=== PATIENT | female | born 1950 | race Caucasian/White ===

== ENCOUNTER → 2016-07-14 | Outpatient (CLI) | payer OTHER ==
[~2016-07-14] MED LIST: AMOX500C3 PO; CHOL20007 PO; CLON0.2T PO; ERGO500037 PO; FELO2.5T PO; FLUT0.15 NAE; FURO-85 PO; HYDR-5688 PO; IPRA1AER2 INH; IPRASOL4 INH; LDDP5 TD; LEVO125T4 PO; LORA-741 PO; LOSA1TAB38 PO; METO25TA3 PO; MOME16.7 INH; OMEP20CA59 PO; ONDA4TAB10 SL; OXYC1TAB3 PO; PANT40TA PO; PRED20TA2 PO; PRT/20 PO; RANI150T3 PO; RBTDAC10 PO; RIZA10TA18 PO; SERT-234 PO; SPIR25TA PO
[2016-07-14 12:27] LABS: URINE APPEARANCE CLEAR (CLEAR); URINE BILIRUBIN NEG (NEG); URINE COLOR YELLOW; URINE EPITHELIAL CELL AUTO 0-5 /lpf (0-5); URINE NITRITE NEG (NEG); URINE PH 6.5 (4.5-7.5); URINE SPECIFIC GRAVITY 1.006 (1.000-1.030); UROBILINOGEN NEG (NEG); ZZUR CULT IF INDIC CLEAN CATCH NO
[2016-07-14 12:40] LABS: BLOOD UREA NITROGEN 16 mg/dl (7-18); BUN/CREATININE RATIO 17.5 (10-20); CALCIUM 9.3 mg/dl (8.5-10.1); CARBON DIOXIDE 29 mmol/L (21-32); CHLORIDE 104 mmol/L (98-107); CREATININE 0.93 mg/dl (0.60-1.20); GLUCOSE 106 mg/dl (70-99); PHOSPHORUS 3.5 mg/dl (2.5-4.9); POTASSIUM 4.4 mmol/L (3.5-5.1); SODIUM 139 mmol/L (136-145)
[2016-07-14 12:57] LABS: URINE TOTAL PROTEIN < 5.0 mg/dl (0-11.9)
[2016-07-14 13:04] LABS: MANUAL MICROSCOPIC REQUIRED? NO; REVIEW REQ? NO
== END | disposition home or self-care (01) ==
LOC: C.LABPVFM 09:29
PROVIDERS: ATTEND Nurse Practitioner
DX: I10 Essential (primary) hypertension (principal); E55.9 Vitamin D deficiency, unspecified

== ENCOUNTER → 2016-07-26 | Outpatient (CLI) | payer OTHER | END | disposition home or self-care (01) | LOC: C.LABPVFM 13:44 | PROVIDERS: ATTEND Nurse Practitioner | DX: E03.9 Hypothyroidism, unspecified (principal) ==

== ENCOUNTER → 2016-09-20 | Outpatient (CLI) | payer OTHER ==
[~2016-09-20] MED LIST changes: +OPTIRAY 320 IV PRN
--- NOTE | 2016-09-20 11:17 | DIAGNOSTIC IMAGING REPORT ---
CHEST CT WITH CONTRAST CT DOSE: 252.58 mGy.cm HISTORY: Abnormal chest CT J44.9,R93.8 TECHNIQUE: Multiaxial CT images of the chest were performed following the intravenous administration of contrast. COMPARISON: 05/18/2016 FINDINGS: Improved exam compared to the prior study. Small left pleural effusion on the prior study has effectively resolved. Moderate emphysematous change as well as a slight degree of parenchymal fibrotic change is similar. There is no evidence for new or interval or progressive process. Mediastinal nodes previously described are stable. There is no evidence for new interval or progressive adam pathology. The thoracic aorta is normal in course and caliber IMPRESSION: 1. Moderately improved exam. The left pleural effusion has essentially resolved. 2. Mild emphysematous and chronic interstitial change unaltered from the prior study. 3. Nonspecific mediastinal and to lesser extent hilar adenopathy unchanged from the prior study. Electronically signed by: Yomi Moreland M.D. 09/20/2016 11:16 AM Dictated Date/Time: 09/20/2016 11:12 AM
== END | disposition home or self-care (01) ==
LOC: C.CTS 10:40
PROVIDERS: ATTEND Internal Medicine Pulmonary Disease
DX: J44.9 Chronic obstructive pulmonary disease, unspecified (principal); R93.8 Abnormal findings on diagnostic imaging of other specified body structures

== ENCOUNTER 2016-09-25 15:58 | Emergency (ER) | payer OTHER ==
[~2016-09-25] VITALS: Ht 167.6 cm; Wt 81.3 kg
[~2016-09-25 15:58] MED LIST changes: -AMOX500C3 PO; -CHOL20007 PO; -CLON0.2T PO; -FELO2.5T PO; -FURO-85 PO; -IPRA1AER2 INH; -IPRASOL4 INH; -LEVO125T4 PO; -LORA-741 PO; -LOSA1TAB38 PO; -METO25TA3 PO; -ONDA4TAB10 SL; -OPTIRAY 320 IV PRN; -OXYC1TAB3 PO; -PANT40TA PO; -PRED20TA2 PO; -PRT/20 PO; -RANI150T3 PO; -SPIR25TA PO
[2016-09-25 16:08] VITALS: TEMP 36.8
--- NOTE | 2016-09-25 16:10 | EMERGENCY ROOM VISIT NOTE ---
History Report prepared by Ramiro: Bijal Lew Under the Supervision of: Dr. Flo Noel M.D. First contact with patient: 16:04 Chief Complaint: ILLNESS Stated Complaint: ILLNESS History of Present Illness The patient is a 66 year old female who presents to the Emergency Room with complaints of resolved hypertension starting shortly [employer]. The patient states that recently she has had congestion and feels like there is a "ball" in her throat. The patient states that she ate a yogurt and then started to feel dizziness and nausea. She states she then checked her blood pressure and it was at 188/102 mmHg. The patient states she then called for the ambulance but that her blood pressure had decreased. The patient states that she also vomited in route to the hospital. The patient denies any abdominal pain. She states she does use inhalers at home occasionally. The patient states that she did not take any cold medication but did take Tylenol. She states she saw her PCP today where she was prescribed penicillin and took one dose this morning. 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 Review of Systems See HPI for pertinent positives & negatives. A total of 10 systems reviewed and were otherwise negative. Past Medical & Surgical Medical Problems: (1) Anxiety State Nos (2) Asthma (3) Benign hypertension (4) Chr Airway Obstruct Nec (5) Chronic Obstructive Asthma, Nos (6) Coron Atheroscler Nos Type Vessel, [place] Or Graft (7) Diab Alena Wo Compl, Type Ii Or Unspec Type, Uncontrolled (8) Hypertensive urgency (9) Hypothyroidism (10) Hypothyroidism Nos (11) Pneumonia, Organism Nos (12) Pulmonary emphysema (13) Stage 3 Bilateral Breast Carcinoma (14) Tobacco Use Disorder (15) Urin Tract Infection Nos Surgical Problems: (1) S/P mastectomy, bilateral (2) Tubal Ligation Status Family History Diabetes mellitus FHx: heart disease Hypertension Social History Smoking Status: Former Smoker Alcohol Use: none Drug Use: none Marital Status: single, Housing Status: lives alone Occupation Status: disabled Current/Historical Medications Scheduled Felodipine (Plendil Er), 2.5 MG PO DAILY Furosemide (Lasix), 20 MG PO DAILY Ipratropium-Albuterol (Combivent Respimat), 1 PUFFS INH QID Levothyroxine Sodium (Levothyroxine Sodium), 0.5 TAB PO DAILY Losartan Potassium (Cozaar), 100 MG PO DAILY Metoprolol Succinate (Toprol Xl), 12.5 MG PO DAILY Ondasetron Odt (Zofran Odt), 4 MG SL Q6H Pantoprazole (Protonix), Unknown Dose PO DAILY Prednisone (Prednisone Tab), 0 PO DAILY Ranitidine Hcl (Zantac), Unknown Dose PO QPM Sertraline (Zoloft), 50 MG PO DAILY Spironolactone (Aldactone), 25 MG PO DAILY Scheduled PRN Clonidine Hcl (Catapres), 0.1 MG PO BID PRN for Hypertension Ipratropium-Albuterol (Duoneb), 1 TREATMENT INH Q4H PRN for Wheezing Lorazepam (Ativan), 0.5 MG PO HS PRN for INSOMNIA Allergies Coded Allergies: Hydralazine (Verified Allergy, Unknown, joint pain, 09/25/16) pt Tetracycline (Verified Allergy, Unknown, UNKNOWN, 09/25/16) Amlodipine (Verified Adverse Reaction, Mild, Edema., 09/25/16) Physical Exam Vital Signs Date Time Temp Pulse Resp B/P Pulse Ox O2 Delivery O2 Flow Rate FiO2 09/25/16 17:37 18 09/25/16 17:16 78 16 101/56 97 Room Air 09/25/16 16:21 95 Nasal Cannula 09/25/16 16:20 95 Room Air 09/25/16 16:18 76 09/25/16 16:08 36.8 75 16 129/71 95 Room Air Physical Exam GENERAL: Patient is a healthy-appearing well-nourished HEAD: Normocephalic atraumatic EYES: Ocular movements intact pupils equal and react to light OROPHARYNX mucous membranes are moist no exudates present no erythema or edema present NECK: Supple no nuchal rigidity CHEST: Good equal expansion LUNGS: Bilateral wheezing. CARDIAC: Normal S1 and S2 ABDOMEN: Soft nontender no guarding BACK: No CVA tenderness EXTREMITIES: No pain upon palpation normal muscle strength in all groups no clubbing cyanosis or edema NEURO: Patient is following commands is answering questions appropriately. Alert and oriented x3 Cranial Nerves 2-12 grossly intact Medical Decision & Procedures ER Provider Diagnostic Interpretation: X-ray results as stated below per interpretation by me and the radiologist: SINGLE VIEW CHEST CLINICAL HISTORY: Pleural effusion. FINDINGS: An AP, portable, upright chest radiograph is compared to study dated 05/24/2016 and correlated with chest CT dated 09/20/2016. The examination is degraded by portable technique and patient rotation. A right subclavian central venous infusion port is unchanged in position. The heart is enlarged and there is atherosclerotic calcification of the thoracic aorta. The pulmonary vasculature is noncongested. Emphysema and chronic interstitial thickening are similar to previous, as is mild elevation of left hemidiaphragm. No airspace consolidation or pleural effusion is seen identified. There is significant biapical scarring. There is no pneumothorax. The skeletal structures are osteopenic. There are healed left-sided rib fractures. IMPRESSION: Cardiomegaly and emphysema with no acute cardiopulmonary abnormality. Electronically signed by: Edi Figueroa M.D. 09/25/2016 4:53 PM Dictated Date/Time: 09/25/2016 4:51 PM Laboratory Results 09/25/16 16:24 Red Blood Count 4.67, Mean Corpuscular Volume 85.7, Mean Corpuscular Hemoglobin 29.6, Mean Corpuscular Hemoglobin Concent 34.5, Mean Platelet Volume 9.1, Neutrophils (%) (Auto) 64.9, Lymphocytes (%) (Auto) 24.8, Monocytes (%) (Auto) 8.1, Eosinophils (%) (Auto) 1.5, Basophils (%) (Auto) 0.5, Neutrophils # (Auto) 5.22, Lymphocytes # (Auto) 2.00, Monocytes # (Auto) 0.65, Eosinophils # (Auto) 0.12, Basophils # (Auto) 0.04 09/25/16 16:24 Test 09/25/16 16:24 White Blood Count 8.05 K/uL (4.8-10.8) Red Blood Count 4.67 M/uL (4.2-5.4) Hemoglobin 13.8 g/dL (12.0-16.0) Hematocrit 40.0 % (37-47) Mean Corpuscular Volume 85.7 fL (80-100) Mean Corpuscular Hemoglobin 29.6 pg (25-34) Mean Corpuscular Hemoglobin Concent 34.5 g/dl (32-36) Platelet Count 251 K/uL (130-400) Mean Platelet Volume 9.1 fL (7.4-10.4) Neutrophils (%) (Auto) 64.9 % Lymphocytes (%) (Auto) 24.8 % Monocytes (%) (Auto) 8.1 % Eosinophils (%) (Auto) 1.5 % Basophils (%) (Auto) 0.5 % Neutrophils # (Auto) 5.22 K/uL (1.4-6.5) Lymphocytes # (Auto) 2.00 K/uL (1.2-3.4) Monocytes # (Auto) 0.65 K/uL (0.11-0.59) Eosinophils # (Auto) 0.12 K/uL (0-0.5) Basophils # (Auto) 0.04 K/uL (0-0.2) RDW Standard Deviation 43.8 fL (36.4-46.3) RDW Coefficient of Variation 14.1 % (11.5-14.5) Immature Granulocyte % (Auto) 0.2 % Immature Granulocyte # (Auto) 0.02 K/uL (0.00-0.02) Anion Gap 7.0 mmol/L (3-11) Est Creatinine Clear Calc Drug Dose 59.0 ml/min Estimated GFR () 68.7 Estimated GFR (Non- 59.3 BUN/Creatinine Ratio 20.1 (10-20) Calcium Level 9.5 mg/dl (8.5-10.1) Total Bilirubin 0.3 mg/dl (0.2-1) Aspartate Amino Transf (AST/SGOT) 18 U/L (15-37) Alanine Aminotransferase (ALT/SGPT) 23 U/L (12-78) Alkaline Phosphatase 97 U/L (45-117) Total Creatine Kinase 137 U/L (26-192) Creatine Kinase MB 3.3 ng/ml (0.5-3.6) Creatine Kinase MB Ratio 2.4 (0-3.0) Troponin I < 0.015 ng/ml (0-0.045) Total Protein 7.0 gm/dl (6.4-8.2) Albumin 3.6 gm/dl (3.4-5.0) Globulin 3.4 gm/dl (2.5-4.0) Albumin/Globulin Ratio 1.1 (0.9-2) Labs reviewed by ED physician. Medications Administered Medications (Trade) Dose Ordered Sig/Hazel Route Start Time Stop Time Status Last Admin Dose Admin Methylprednisolone Sodium Succinate 60 mg 60 mg NOW STAT IV 09/25/16 16:13 09/25/16 16:17 DC 09/25/16 16:30 60 MG Sodium Chloride (Nss 1000ml) 1,000 ml @ 999 mls/hr Q1H1M STAT IV 09/25/16 16:13 09/25/16 17:13 DC 09/25/16 16:29 999 MLS/HR ED Course 1604: Past medical records reviewed. The patient was evaluated in room C6. A complete history and physical examination was performed. 1613: Ordered Sodium Chloride 1,000 ml @ 999 mls/hr IV, Soul-Medrol IV 60 mg IV. 1615: Ordered Duoneb 12 ml INH. 1719: Upon reexamination the patient is resting comfortably. I discussed results and treatment plan with the patient. She verbalizes agreement and understanding. The patient is ready for discharge. Medical Decision Differential diagnosis: Etiologies such as infections, reactive airway disease, pneumonia, pneumothorax , COPD, CHF, cardiac ischemia, pulmonary embolism, musculoskeletal, gastrointestinal, as well as others were entertained. This is a 66-year-old female who presents emergency department complaining of shortness of breath. The patient is wheezing on examination and therefore was given an hour-long breathing treatment and started on solu medrol. She has a normal CBC normal renal profile normal liver profile normal lipase. Patient did vomit en route to the emergency department and did receive Zofran. Repeat examination revealed improvement patient's symptoms. The patient did have serial abdominal examinations were performed on the patient in the emergency department and at no tender the patient exhibit abdominal tenderness or surgical abdomen. I believe based on these findings at the patient can be safely discharged home. I will placed patient on prednisone and trial her on Zofran. Patient was in agreement with the treatment plan. Impression Primary Impression: COPD exacerbation Scribe Attestation The scribe's documentation has been prepared under my direction and personally reviewed by me in its entirety. I confirm that the note above accurately reflects all work, treatment, procedures, and medical decision making performed by me. Departure Information Dispostion Home / Self-Care Prescriptions Ondasetron Odt (ZOFRAN ODT) 4 Mg Tab 4 MG SL Q6H for Nausea, #6 TAB Prov: Flo Noel MD 09/25/16 Prednisone (Prednisone Tab) 20 Mg Tab 0 PO DAILY, #7 TAB 2 TABS DAILY FOR 2 DAYS, THEN 1 TAB DAILY FOR 2 DAYS, THEN 1/2 TAB DAILY FOR 2 DAYS. Prov: Flo Noel MD 09/25/16 Referrals Tiffanie Lugo C.R.N.P (PCP) Forms HOME CARE DOCUMENTATION FORM, IMPORTANT VISIT INFORMATION, WORK / SCHOOL INSTRUCTIONS Patient Instructions My [facility] Additional Instructions Use inhaler twice every 6 hours You have been examined and treated today on an emergency basis only. This is not a substitute for, or an effort to provide, complete comprehensive medical care. It is impossible to recognize and treat all injuries or illnesses in a single emergency department visit. It is therefore important that you follow up closely withyour PCP. Call as soon as possible for an appointment. Thank you for your time and consideration. I look forward to speaking with you again soon. Please don't hesitate to call us if you have any questions.
[2016-09-25] MEDS ORDERED: SODIUM CHLORIDE 0.9% 1000ML 1,000 ML IV STA (16:13)
[2016-09-25] MEDS ORDERED: METHYLPREDNISOLONE 125 MG VIAL IV STA (16:13)
[2016-09-25] MEDS ORDERED: ALBUT/IPRATROP 3MG/0.5MG NEB 3 ML VIAL INH ONE (16:15)
[2016-09-25 16:19] VITALS: Ht 167.6 cm; Wt 81.3 kg
[2016-09-25 16:21] VITALS: O2SAT 95
[2016-09-25] MEDS ORDERED: RANI150T3 PO (16:23)
[2016-09-25] MEDS ORDERED: PRT/20 PO (16:23)
[2016-09-25 16:35] LABS: BASO % 0.5 %; BASO ABS # 0.04 K/uL (0-0.2); COMPLETE YES; EOS % 1.5 %; IG% 0.2 %; LYMPH % 24.8 %; MEAN CELL VOLUME 85.7 fL (80-100); MEAN CORPUSCULAR HEMOGLOBIN 29.6 pg (25-34); MEAN CORPUSCULAR HGB CONC 34.5 g/dl (32-36); MEAN PLATELET VOLUME 9.1 fL (7.4-10.4); MONO % 8.1 %; NEUT % 64.9 %; PLATELET COUNT 251 K/uL (130-400); RED BLOOD COUNT 4.67 M/uL (4.2-5.4); WHITE BLOOD COUNT 8.05 K/uL (4.8-10.8)
[2016-09-25 16:54] LABS: BLOOD UREA NITROGEN 20 mg/dl (7-18); BUN/CREATININE RATIO 20.1 (10-20); CALCIUM 9.5 mg/dl (8.5-10.1); CARBON DIOXIDE 27 mmol/L (21-32); CHLORIDE 104 mmol/L (98-107); CREATININE 0.98 mg/dl (0.60-1.20); GLUCOSE 89 mg/dl (70-99); POTASSIUM 4.1 mmol/L (3.5-5.1); SODIUM 138 mmol/L (136-145)
--- NOTE | 2016-09-25 16:54 | DIAGNOSTIC IMAGING REPORT ---
SINGLE VIEW CHEST CLINICAL HISTORY: Pleural effusion. FINDINGS: An AP, portable, upright chest radiograph is compared to study dated 05/24/2016 and correlated with chest CT dated 09/20/2016. The examination is degraded by portable technique and patient rotation. A right subclavian central venous infusion port is unchanged in position. The heart is enlarged and there is atherosclerotic calcification of the thoracic aorta. The pulmonary vasculature is noncongested. Emphysema and chronic interstitial thickening are similar to previous, as is mild elevation of left hemidiaphragm. No airspace consolidation or pleural effusion is seen identified. There is significant biapical scarring. There is no pneumothorax. The skeletal structures are osteopenic. There are healed left-sided rib fractures. IMPRESSION: Cardiomegaly and emphysema with no acute cardiopulmonary abnormality. Electronically signed by: Edi Figueroa M.D. 09/25/2016 4:53 PM Dictated Date/Time: 09/25/2016 4:51 PM
[2016-09-25 16:59] LABS: ALB/GLOB RATIO 1.1 (0.9-2); ALKALINE PHOSPHATASE 97 U/L (45-117); ALT/SGPT 23 U/L (12-78); AST/SGOT 18 U/L (15-37); CKMB/CK RATIO 2.4 (0-3.0)
[2016-09-25 17:16] VITALS: BP 101/56; PULSE 78; O2SAT 97
[2016-09-25] MEDS ORDERED: ONDA4TAB10 SL (17:20)
[2016-09-25] MEDS ORDERED: PRED20TA2 PO (17:20)
[2017-02-04] MEDS ORDERED: LORA-741 PO (00:14)
[2017-02-04] MEDS ORDERED: CLON0.2T PO (00:30)
[2017-02-04] MEDS ORDERED: IPRA1AER2 INH (00:31)
[2017-02-04] MEDS ORDERED: SPIR25TA PO (05:41)
[2017-02-04] MEDS ORDERED: FURO-85 PO (05:49)
[2017-02-04] MEDS ORDERED: FELO2.5T PO (05:49)
[2017-02-04] MEDS ORDERED: METO25TA3 PO (11:53)
== END 2016-09-25 17:38 | disposition home or self-care (01) ==
LOC: EDBD 15:58 → C.EDC 15:59
DX: J44.1 Chronic obstructive pulmonary disease with (acute) exacerbation (principal); I10 Essential (primary) hypertension; E11.9 Type 2 diabetes mellitus without complications; E03.9 Hypothyroidism, unspecified; I25.10 Atherosclerotic heart disease of native coronary artery without angina pectoris; J43.9 Emphysema, unspecified; F41.9 Anxiety disorder, unspecified; Z85.3 Personal history of malignant neoplasm of breast; Z90.13 Acquired absence of bilateral breasts and nipples; Z87.440 Personal history of urinary (tract) infections; Z98.51 Tubal ligation status; Z87.891 Personal history of nicotine dependence; Z79.899 Other long term (current) drug therapy; Z88.8 Allergy status to other drugs, medicaments and biological substances; Z83.3 Family history of diabetes mellitus; Z82.49 Family history of ischemic heart disease and other diseases of the circulatory system

== ENCOUNTER → 2016-11-03 | Outpatient (CLI) | payer OTHER ==
[~2016-11-03] MED LIST changes: +AMOX500C3 PO; +CHOL20007 PO; +CLON0.2T PO; -ERGO500037 PO; +FELO2.5T PO; -FLUT0.15 NAE; +FURO-85 PO; -HYDR-5688 PO; +IPRA1AER2 INH; +IPRASOL4 INH; -LDDP5 TD; +LEVO125T5 PO; +LORA-741 PO; +LOSA1TAB38 PO; +METO25TA3 PO; -MOME16.7 INH; -OMEP20CA59 PO; +ONDA4TAB10 SL; +OXYC1TAB3 PO; +PANT40TA PO; +PRED20TA2 PO; +PRT/20 PO; +RANI150T3 PO; -RBTDAC10 PO; -RIZA10TA18 PO; +SPIR25TA PO
== END | disposition home or self-care (01) ==
LOC: C.LABPVFM 14:08
PROVIDERS: ATTEND Family Medicine
DX: R39.9 Unspecified symptoms and signs involving the genitourinary system (principal)

== ENCOUNTER → 2016-12-22 | Outpatient (CLI) | payer OTHER ==
[~2016-12-22] MED LIST changes: +LEVO125T4 PO; -LEVO125T5 PO
--- NOTE | 2017-01-12 08:13 | CODING QUERY NO DIAGNOSIS ---
TREATMENT RENDERED WITHOUT A DIAGNOSIS To promote full compliance with coding requirements relating to patient care, physician participation is requested in all cases of cattle inspector uncertainty. Please assist us with providing a diagnosis/symptom for the test(s) below: A diagnosis/symptom was not documented on your Order. A valid diagnosis/symptom is required to bill all insurances. Please remember that we are unable to code a diagnosis of rule out, probable, possible, questionable, or suspected. Tests that require a diagnosis: * SHAVE BIOPSY RIGHT FOREHEAD DIAGNOSIS: Provider Signature: Date: Thank you Corine [place] [employer] Information Management Once completed, please kindly fax back to [phone] For questions please call [phone]
== END | disposition home or self-care (01) ==
LOC: C.PATHSPEC 16:31
PROVIDERS: ATTEND Dermatology
DX: Z01.89 Encounter for other specified special examinations (principal)

== ENCOUNTER → 2017-01-11 | Outpatient (CLI) | payer OTHER ==
[2017-01-11 13:16] LABS: BLOOD UREA NITROGEN 16 mg/dl (7-18); BUN/CREATININE RATIO 17.2 (10-20); CALCIUM 9.4 mg/dl (8.5-10.1); CARBON DIOXIDE 28 mmol/L (21-32); CHLORIDE 102 mmol/L (98-107); CREATININE 0.95 mg/dl (0.60-1.20); GLUCOSE 103 mg/dl (70-99); MAGNESIUM 2.2 mg/dl (1.8-2.4); POTASSIUM 4.3 mmol/L (3.5-5.1); SODIUM 136 mmol/L (136-145)
== END | disposition home or self-care (01) ==
LOC: C.LABPVFM 09:19
PROVIDERS: ATTEND Internal Medicine Nephrology
DX: I10 Essential (primary) hypertension (principal)

== ENCOUNTER → 2017-01-28 | Outpatient (CLI) | payer OTHER ==
[2017-01-28 18:05] LABS: CHOLESTEROL/HDL RATIO 4.6
[2017-01-29 06:26] LABS: ESTIMATED AVERAGE GLUCOSE 126 mg/dl; HA1C FLAG Normal (Normal)
== END | disposition home or self-care (01) ==
LOC: C.LABPVFM 11:05
PROVIDERS: ATTEND Nurse Practitioner
DX: E78.5 Hyperlipidemia, unspecified (principal); R73.01 Impaired fasting glucose

== ENCOUNTER → 2017-02-01 | Outpatient (CLI) | payer OTHER ==
--- NOTE | 2017-02-01 11:27 | DIAGNOSTIC IMAGING REPORT ---
ABDOMINAL ULTRASOUND, RIGHT UPPER QUADRANT HISTORY: Generalized abdominal pain. Nausea.. COMPARISON: Abdomen and pelvis CT 02/25/2015. FINDINGS: Pancreas: The pancreas demonstrates a normal echotexture. Liver: The liver is slightly echogenic consistent with mild fatty change. Gallbladder: No gallbladder wall thickening. No gallstones. CBD: 5 mm. Right kidney: No hydronephrosis. IMPRESSION: 1. Mild hepatic steatosis. 2. Normal gallbladder. Electronically signed by: Moe Hills M.D. 02/01/2017 11:26 AM Dictated Date/Time: 02/01/2017 11:24 AM
== END | disposition home or self-care (01) ==
LOC: C.ULTR 10:38
PROVIDERS: ATTEND Nurse Practitioner
DX: K21.9 Gastro-esophageal reflux disease without esophagitis (principal); R11.0 Nausea; R10.13 Epigastric pain

== ENCOUNTER 2017-02-04 14:11 | Emergency (ER) | payer OTHER ==
[~2017-02-04] VITALS: Ht 167.6 cm; Wt 76.8 kg
[~2017-02-04 14:11] MED LIST changes: -AMOX500C3 PO; -CHOL20007 PO; -IPRASOL4 INH; -LEVO125T4 PO; -LOSA1TAB38 PO; -OXYC1TAB3 PO; -PANT40TA PO; -SERT-234 PO
[2017-02-04 14:15] VITALS: BP 161/86; TEMP 36.8; Ht 167.6 cm; Wt 76.8 kg
[2017-02-04] MEDS ORDERED: OXYCODONE HCL IR 5 MG TAB (IMMEDIATE RELEASE) PO STA (14:27)
--- NOTE | 2017-02-04 14:39 | EMERGENCY ROOM VISIT NOTE ---
ED Visit Note First contact with patient: 14:19 CHIEF COMPLAINT: Toothache HISTORY OF PRESENT ILLNESS: This 66-year-old female presents the ER with chief complaint of left upper tooth pain. The patient states the pain has been intermittent for several weeks but last night it got worse. She denies any swelling to the face or any redness. The patient has been taking Tylenol for pain without any relief. The patient states that the only dentist that takes her insurance is located in [place] and she does not have anyone to take her there. REVIEW OF SYSTEMS: 6 system review was performed and was negative unless stated otherwise in history of present illness. PMH: The patient is healthy; hypertension, asthma, peptic ulcer disease, breast cancer with bilateral mastectomy, SOCIAL HISTORY: Patient lives alone. The patient denies any tobacco or alcohol use. PHYSICAL EXAM: Vital Signs: Were reviewed Reviewed Nurse's notes. GENERAL: 66- year-old white female appears uncomfortable secondary to the pain. MENTAL STATUS: Alert and oriented 3. MOUTH: The #11 tooth with diffuse decay and gingival swelling just adjacent to the tooth. Diffuse decay and multiple teeth missing within the patient's mouth. FACE: No erythema or edema noted. NECK: Supple, no lymphadenopathy noted. EMERGENCY COURSE: The patient was evaluated. The patient's EMR medication list were reviewed. The patient was independently evaluated by Dr. Lynn who agreed with treatment plan. The patient was given OxyIR 5 mg by mouth while in the emergency room. The patient was discharged home in stable condition. DIAGNOSIS: Dental caries and gingivitis DISCHARGE INSTRUCTIONS & TREATMENT: Tylenol as needed for pain. Take OxyIR as needed for more severe pain. Take amoxicillin as prescribed. Follow-up with a dentist as soon as possible for definitive care. Problem List Medical Problems: (1) Anxiety State Nos Status: Chronic (2) Asthma Status: Chronic (3) Benign hypertension Status: Chronic (4) Chr Airway Obstruct Nec Status: Chronic (5) Chronic Obstructive Asthma, Nos Status: Chronic (6) Coron Atheroscler Nos Type Vessel, [place] Or Graft Status: Chronic (7) Diab Alena Wo Compl, Type Ii Or Unspec Type, Uncontrolled Status: Chronic (8) Hypothyroidism Status: Chronic (9) Hypothyroidism Nos Status: Chronic (10) Pneumonia, Organism Nos Status: Resolved (11) Pulmonary emphysema Status: Chronic (12) Stage 3 Bilateral Breast Carcinoma Status: Resolved (13) Tobacco Use Disorder Status: Resolved (14) Urin Tract Infection Nos Status: Resolved Surgical Problems: (1) S/P mastectomy, bilateral Status: Resolved (2) Tubal Ligation Status Status: Resolved Current/Historical Medications Scheduled Felodipine (Plendil Er), 2.5 MG PO DAILY Furosemide (Lasix), 20 MG PO DAILY Ipratropium-Albuterol (Combivent Respimat), 1 PUFFS INH QID Levothyroxine Sodium (Levothyroxine Sodium), 0.5 TAB PO DAILY Losartan Potassium (Cozaar), 100 MG PO DAILY Metoprolol Succinate (Toprol Xl), 12.5 MG PO DAILY Ondasetron Odt (Zofran Odt), 4 MG SL Q6H Pantoprazole (Protonix), Unknown Dose PO DAILY Prednisone (Prednisone Tab), 0 PO DAILY Ranitidine Hcl (Zantac), Unknown Dose PO QPM Sertraline (Zoloft), 50 MG PO DAILY Spironolactone (Aldactone), 25 MG PO DAILY Scheduled PRN Clonidine Hcl (Catapres), 0.1 MG PO BID PRN for Hypertension Ipratropium-Albuterol (Duoneb), 1 TREATMENT INH Q4H PRN for Wheezing Lorazepam (Ativan), 0.5 MG PO HS PRN for INSOMNIA Allergies Coded Allergies: Hydralazine (Verified Allergy, Unknown, joint pain, 09/25/16) pt Tetracycline (Verified Allergy, Unknown, UNKNOWN, 09/25/16) Amlodipine (Verified Adverse Reaction, Mild, Edema., 09/25/16) Vital Signs Date Time Temp Pulse Resp B/P (MAP) Pulse Ox O2 Delivery O2 Flow Rate FiO2 02/04/17 14:15 36.8 90 20 161/86 96 Room Air Departure Information Referrals Tiffanie Lugo C.R.N.P (PCP) Patient Instructions My [facility]
[2017-02-04] MEDS ORDERED: OXYC1TAB3 PO (14:43)
[2017-02-04] MEDS ORDERED: AMOX500C3 PO (14:43)
[2017-02-04] MEDS ORDERED: PANT40TA PO (15:04)
[2017-02-04] MEDS ORDERED: CHOL20007 PO (15:04)
[2017-02-04 15:22] VITALS: PULSE 69; O2SAT 96
[2017-02-04] MEDS ORDERED: LEVO125T4 PO (20:26)
[2017-02-04] MEDS ORDERED: LOSA1TAB38 PO (20:42)
[2017-02-04] MEDS ORDERED: IPRASOL4 INH (20:42)
[2017-02-04] MEDS ORDERED: SERT-234 PO (20:42)
== END 2017-02-04 15:23 | disposition home or self-care (01) ==
LOC: C.EDB 14:12 → C.EDD 15:23
DX: K02.9 Dental caries, unspecified (principal); K05.10 Chronic gingivitis, plaque induced; I10 Essential (primary) hypertension; E11.9 Type 2 diabetes mellitus without complications; E03.9 Hypothyroidism, unspecified; I25.10 Atherosclerotic heart disease of native coronary artery without angina pectoris; F41.9 Anxiety disorder, unspecified; J45.909 Unspecified asthma, uncomplicated; J44.9 Chronic obstructive pulmonary disease, unspecified; Z85.3 Personal history of malignant neoplasm of breast; Z87.11 Personal history of peptic ulcer disease; Z90.13 Acquired absence of bilateral breasts and nipples; Z98.51 Tubal ligation status; Z79.899 Other long term (current) drug therapy; Z88.8 Allergy status to other drugs, medicaments and biological substances

== ENCOUNTER → 2017-02-08 | Outpatient (CLI) | payer OTHER ==
[~2017-02-08] MED LIST changes: +AMOX500C3 PO; +CHOL20007 PO; +IPRASOL4 INH; +LEVO125T4 PO; +LOSA1TAB38 PO; -ONDA4TAB10 SL; +OXYC1TAB3 PO; +PANT40TA PO; -PRED20TA2 PO; -PRT/20 PO; -RANI150T3 PO; +SERT-234 PO
--- NOTE | 2017-02-08 13:45 | DIAGNOSTIC IMAGING REPORT ---
CT HEAD WITHOUT CONTRAST (CT) CLINICAL HISTORY: R42 [id number] Unsteady gaitpersistent, vertigo. Hx breast ca COMPARISON STUDY: 05/07/2014 TECHNIQUE: Axial CT of the brain is performed from the vertex to the skull base. IV contrast was not administered for this examination. A dose lowering technique was utilized adhering to the principles of ALARA. CT DOSE: 638.56 mGycm FINDINGS: No intra or extra-axial mass lesions are visualized. There is no CT evidence of acute cortical infarction. There is no evidence of midline shift. There is no acute hemorrhage. No calvarial fractures are visualized. There are minimal white matter hypodensities likely on a small vessel basis. There is no evidence of pathologic ventricular dilatation. There is no evidence of acute sinusitis IMPRESSION: No acute intracranial findings Electronically signed by: Jay Miller M.D. 02/08/2017 1:44 PM Dictated Date/Time: 02/08/2017 1:43 PM
== END | disposition home or self-care (01) ==
LOC: C.CTS 13:12
PROVIDERS: ATTEND Nurse Practitioner
DX: R42 Dizziness and giddiness (principal); R26.81 Unsteadiness on feet

== ENCOUNTER → 2017-02-22 | Outpatient (CLI) | payer OTHER ==
[~2017-02-22] MED LIST changes: -AMOX500C3 PO
== END | disposition home or self-care (01) ==
LOC: C.LABPVFM 10:02
PROVIDERS: ATTEND Nurse Practitioner
DX: R30.0 Dysuria (principal)

== ENCOUNTER → 2017-03-03 | Outpatient (CLI) | payer OTHER | END | disposition home or self-care (01) | LOC: C.LABPVFM 15:28 | PROVIDERS: ATTEND Nurse Practitioner | DX: R39.9 Unspecified symptoms and signs involving the genitourinary system (principal) ==

== ENCOUNTER → 2017-03-25 | Outpatient (CLI) | payer OTHER | END | disposition home or self-care (01) | LOC: C.PAPS 11:31 | PROVIDERS: ATTEND Obstetrics & Gynecology | DX: N94.89 Other specified conditions associated with female genital organs and menstrual cycle (principal) ==

== ENCOUNTER → 2017-04-14 | Outpatient (CLI) | payer OTHER ==
--- NOTE | 2017-04-14 11:39 | DIAGNOSTIC IMAGING REPORT ---
KUB CLINICAL HISTORY: Dysuria. Generalized abdominal pain. FINDINGS: 2 AP supine abdominal radiographs are compared to study dated 10/31/2015 and correlated with abdominal CT dated 02/25/2015. There is a nonobstructed abdominal bowel gas pattern. There is no radiographic evidence of nephrolithiasis. The skeletal structures are osteopenic. Mild lumbosacral spondylosis is observed. The bony structures appear intact. IMPRESSION: 1. Nonobstructed abdominal bowel gas pattern. 2. There is no radiographic evidence of nephrolithiasis. Electronically signed by: Edi Figueroa M.D. 04/14/2017 11:38 AM Dictated Date/Time: 04/14/2017 11:37 AM
== END | disposition home or self-care (01) ==
LOC: C.RADPV 11:14
PROVIDERS: ATTEND Nurse Practitioner Family
DX: R39.9 Unspecified symptoms and signs involving the genitourinary system (principal)

== ENCOUNTER → 2017-04-14 | Outpatient (CLI) | payer OTHER | END | disposition home or self-care (01) | LOC: C.LABPVFM 12:53 | PROVIDERS: ATTEND Nurse Practitioner Family | DX: R39.9 Unspecified symptoms and signs involving the genitourinary system (principal) ==

== ENCOUNTER 2017-06-20 21:18 | Observation (INO) | payer OTHER ==
[~2017-06-20] VITALS: Ht 167.6 cm; Wt 76.5 kg
[~2017-06-20 21:18] MED LIST changes: -LEVO125T4 PO; +LEVO125T5 PO
[2017-06-20] MEDS ORDERED: ASPIRIN 81 MG CHEW PO STA (21:25)
[2017-06-20] MEDS ORDERED: NITROGLYCERIN OINT 2% 1GM PACKET EXT STA (21:25)
[2017-06-20] MEDS ORDERED: METOPROLOL TARTRATE 1 MG/ML VIAL IV STA (21:25)
--- NOTE | 2017-06-20 21:30 | EMERGENCY ROOM VISIT NOTE ---
History Report prepared by Ramiro: Mateusz Jay Under the Supervision of: Dr. Edi Crawford M.D. First contact with patient: 21:19 Chief Complaint: DENTAL PAIN Stated Complaint: DENTAL PAIN History of Present Illness The patient is a 66 year old female who presents to the Emergency Room with complaints of constant bilateral jaw pain beginning 3 hours ago. The patient states that she had high blood pressure yesterday and today. She notes that her pain occurs on both sides of the jaw, but is worse on the right side. She also complains of SOB and nausea. She denies any chest pain. She reports that she has a history of hypertension and hyperlipidemia but does not have a history of any heart problems. The patient states that she has not changed any of her blood pressure medication or missed any doses. She notes that her sister who is 2 years older has had a heart attack. Source of History: patient Onset: 3 hours ago Position: jaw Timing: constant Associated Symptoms: + SOB, + nausea, No chest pain Note: She also complains of hypertension. Review of Systems See HPI for pertinent positives & negatives. A total of 10 systems reviewed and were otherwise negative. Past Medical & Surgical Medical Problems: (1) Anxiety State Nos (2) Asthma (3) Benign hypertension (4) Chr Airway Obstruct Nec (5) Chronic Obstructive Asthma, Nos (6) Coron Atheroscler Nos Type Vessel, [place] Or Graft (7) Diab Alena Wo Compl, Type Ii Or Unspec Type, Uncontrolled (8) Hyperlipemia (9) Hypertensive urgency (10) Hypothyroidism (11) Hypothyroidism Nos (12) Pneumonia, Organism Nos (13) Pulmonary emphysema (14) Stage 3 Bilateral Breast Carcinoma (15) Tobacco Use Disorder (16) Urin Tract Infection Nos Surgical Problems: (1) S/P mastectomy, bilateral (2) Tubal Ligation Status Family History Diabetes mellitus FH: heart attack FHx: heart disease Hypertension Social History Smoking Status: Former Smoker Alcohol Use: none Drug Use: none Marital Status: single, Housing Status: lives alone Occupation Status: disabled Current/Historical Medications Scheduled Cholecalciferol (Vitamin D3), 1 TAB PO DAILY Felodipine (Plendil Er), 2.5 MG PO DAILY Furosemide (Lasix), 20 MG PO DAILY Levothyroxine Sodium (Levothyroxine Sodium), 0.5 TAB PO DAILY Losartan Potassium (Cozaar), 100 MG PO DAILY Metoprolol Succinate (Toprol Xl), 12.5 MG PO DAILY Ranitidine (Zantac), 150 MG PO QAM Sertraline (Zoloft), 100 MG PO DAILY Simvastatin (Zocor), 20 MG PO HS Spironolactone (Aldactone), 25 MG PO DAILY Scheduled PRN Clonidine Hcl (Catapres), 0.1 MG PO BID PRN for Hypertension Ipratropium-Albuterol (Duoneb), 1 TREATMENT INH Q4H PRN for Wheezing Ipratropium-Albuterol (Combivent Respimat), 1 PUFFS INH QID PRN for Lorazepam (Ativan), 0.5 MG PO HS PRN for INSOMNIA Oxycodone Immediate Rel Tab (Roxicodone Ir), 1-2 TAB PO Q6 PRN for Pain Rizatriptan Benzoate (Maxalt), 10 MG PO Q2 PRN for Migraine Sucralfate (Carafate), 1 GM PO ACHS PRN for Allergies Coded Allergies: Hydralazine (Verified Allergy, Unknown, joint pain, 06/20/17) pt Tetracycline (Verified Allergy, Unknown, UNKNOWN, 06/20/17) Amlodipine (Verified Adverse Reaction, Mild, Edema., 06/20/17) Physical Exam Vital Signs Date Time Temp Pulse Resp B/P (MAP) Pulse Ox O2 Delivery O2 Flow Rate FiO2 06/20/17 22:11 127/74 96 Room Air 06/20/17 22:06 123/78 06/20/17 22:01 140/77 06/20/17 21:56 154/78 06/20/17 21:51 159/101 06/20/17 21:48 71 17 06/20/17 21:47 174/99 06/20/17 21:43 81 202/110 06/20/17 21:36 Room Air 06/20/17 21:36 37.4 99 18 202/110 96 Room Air 06/20/17 21:31 73 06/20/17 21:21 202/110 Physical Exam GENERAL: Patient is in no acute distress. HEENT: No acute trauma, normocephalic atraumatic, mucous membranes moist, no nasal congestion, no scleral icterus. Missing most of her teeth, no evidence for dental abscess. NECK: No stridor, no adenopathy, no meningismus, trachea is midline. LUNGS: Clear to auscultation bilaterally, no wheeze, no rhonchi, breath sounds equal. HEART: Without murmurs gallops or rubs, regular rate and rhythm. ABDOMEN: Soft, nontender, bowel sounds positive, no hernias, no peritonitis. EXTREMITIES: No cyanosis or edema, full range of motion of all the joints without pain or difficulty, no signs for acute trauma. NEUROLOGIC: Oriented x 3, no acute motor or sensory deficits, no focal weakness. SKIN: No rash, no jaundice, no diaphoresis. Medical Decision & Procedures ER Provider Diagnostic Interpretation: Radiology results as stated below per my review and radiologist interpretation: CHEST ONE VIEW PORTABLE FINDINGS: Upper lobe predominant emphysema is noted. Biapical opacities are unchanged and favor scarring. There is no pneumothorax or pleural effusion. Cardiomegaly is unchanged. There is no evidence for pulmonary edema. There is no consolidation to suggest pneumonia. Old left-sided rib fractures are noted. IMPRESSION: No change in appearance of the chest. Upper lobe predominant emphysema and scarring with no acute cardiopulmonary findings. Electronically signed by: Devan Keating M.D. 06/20/2017 10:04 PM Laboratory Results 06/20/17 21:36 06/20/17 21:36 Test 06/20/17 21:36 Red Blood Count 4.81 M/uL (4.2-5.4) Mean Corpuscular Volume 87.3 fL (80-100) Mean Corpuscular Hemoglobin 30.6 pg (25-34) Mean Corpuscular Hemoglobin Concent 35.0 g/dl (32-36) RDW Standard Deviation 43.0 fL (36.4-46.3) RDW Coefficient of Variation 13.5 % (11.5-14.5) Mean Platelet Volume 9.5 fL (7.4-10.4) Prothrombin Time 10.0 SECONDS (9.0-12.0) Prothromb Time International Ratio 1.0 (0.9-1.1) Activated Partial Thromboplast Time 29.4 SECONDS (21.0-31.0) Partial Thromboplastin Ratio 1.1 Anion Gap 9.0 mmol/L (3-11) Est Creatinine Clear Calc Drug Dose 49.9 ml/min Estimated GFR () 60.4 Estimated GFR (Non- 52.1 BUN/Creatinine Ratio 11.7 (10-20) Calcium Level 9.8 mg/dl (8.5-10.1) Total Bilirubin 0.3 mg/dl (0.2-1) Aspartate Amino Transf (AST/SGOT) 23 U/L (15-37) Alanine Aminotransferase (ALT/SGPT) 29 U/L (12-78) Alkaline Phosphatase 107 U/L (45-117) Total Creatine Kinase 160 U/L (26-192) Creatine Kinase MB 3.9 ng/ml (0.5-3.6) Creatine Kinase MB Ratio 2.4 (0-3.0) Troponin I < 0.015 ng/ml (0-0.045) Total Protein 8.1 gm/dl (6.4-8.2) Albumin 4.3 gm/dl (3.4-5.0) Globulin 3.8 gm/dl (2.5-4.0) Albumin/Globulin Ratio 1.1 (0.9-2) Laboratory results reviewed by me. Medications Administered Medications (Trade) Dose Ordered Sig/Hazel Route Start Time Stop Time Status Last Admin Dose Admin Aspirin (Aspirin Chew) 324 mg NOW STAT PO 06/20/17 21:25 06/20/17 21:27 DC 06/20/17 21:43 324 MG Nitroglycerin (Nitroglycerin 2% Oint) 2 inch NOW STAT EXT 06/20/17 21:25 06/20/17 21:27 DC 06/20/17 21:42 2 INCH Metoprolol Tartrate (Lopressor Iv) 5 mg NOW STAT IV 06/20/17 21:25 06/20/17 21:28 DC 06/20/17 21:43 5 MG ECG Indication: other (jaw pain) Rate (beats per minute): 69 Rhythm: normal sinus Findings: no acute ischemic change, no ectopy ED Course 2119: The patient was evaluated in room A11. A complete history and physical exam was performed. 2124: Metoprolol Tartrate 5mg IV, Nitroglycerin 2 inch EXT, Aspirin 324mg PO 6: I reevaluated and updated the patient. She feels good and her blood pressure is under control. 2241: Upon reexamination the patient is stable. I discussed results and treatment plan with the patient. She verbalizes agreement and understanding. I spoke with Dr. Oleary - PRINCESS Resendez. We discussed the patient's results and findings. The patient will be evaluated by Dr. Oleary for further management. Medical Decision Differential diagnoses include: angina, IL, dental infection, hypertension, hypertensive urgency/emergency, renal failure, electrolyte imbalance, and anemia. There is no leukocytosis or concerning anemia. No significant electrolyte abnormality, kidney failure or hepatitis. There is no coagulopathy. EKG shows a sinus rhythm with LVH, no acute ischemia. Cardiac enzyme testing times one is not consistent with acute cardiac injury. Chest film does not show CHF, pneumothorax or mediastinal widening. The patient presents with a high blood pressure and jaw pain. Certainly, her history could be consistent with angina. The patient received oral aspirin, Nitropaste and IV Lopressor. Her blood pressure is now nicely controlled, she feels markedly improved. Given the concern for angina, I think a hospital stay is warranted--the patient does have cardiac risk factors. I spoke to the patient and to case management. The on-call hospitalist was consulted. Medication Reconcilliation Current Medication List: was personally reviewed by me Blood Pressure Screening Patient's blood pressure: Elevated blood pressure Referred to hospitalist. Consults Time Called: [phone] Consulting Physician: Dr. Oleary - Mal, [facility] Returned Call: [id number] Discussed the patient's case. The patient will be evaluated for further management. Impression Primary Impression: Jaw pain Additional Impression: Uncontrolled hypertension Scribe Attestation The scribe's documentation has been prepared under my direction and personally reviewed by me in its entirety. I confirm that the note above accurately reflects all work, treatment, procedures, and medical decision making performed by me. Departure Information Dispostion Being Evaluated By Hospitalist Referrals Tiffanie Lugo, MaryannN.Evi (PCP) Patient Instructions My [facility] Problem Qualifiers
[2017-06-20 21:47] LABS: HEMOGLOBIN 14.7 g/dL (12.0-16.0); MEAN CELL VOLUME 87.3 fL (80-100); MEAN CORPUSCULAR HEMOGLOBIN 30.6 pg (25-34); MEAN PLATELET VOLUME 9.5 fL (7.4-10.4); PLATELET COUNT 237 K/uL (130-400); RED CELL DISTRIBUTION WIDTH CV 13.5 % (11.5-14.5); WHITE BLOOD COUNT 8.97 K/uL (4.8-10.8)
[2017-06-20 22:05] LABS: PTT PATIENT 29.4 SECONDS (21.0-31.0)
--- NOTE | 2017-06-20 22:05 | DIAGNOSTIC IMAGING REPORT ---
CHEST ONE VIEW PORTABLE CLINICAL HISTORY: Chest pain. COMPARISON STUDY: Chest CT September 20, 2016 and chest radiograph September 25, 2016. FINDINGS: Upper lobe predominant emphysema is noted. Biapical opacities are unchanged and favor scarring. There is no pneumothorax or pleural effusion. Cardiomegaly is unchanged. There is no evidence for pulmonary edema. There is no consolidation to suggest pneumonia. Old left-sided rib fractures are noted. IMPRESSION: No change in appearance of the chest. Upper lobe predominant emphysema and scarring with no acute cardiopulmonary findings. Electronically signed by: Devan Keating M.D. 06/20/2017 10:04 PM Dictated Date/Time: 06/20/2017 9:59 PM
[2017-06-20 22:07] LABS: ALBUMIN 4.3 gm/dl (3.4-5.0); ALT/SGPT 29 U/L (12-78); BLOOD UREA NITROGEN 13 mg/dl (7-18); CALCIUM 9.8 mg/dl (8.5-10.1); CARBON DIOXIDE 25 mmol/L (21-32); CREATININE 1.09 mg/dl (0.60-1.20); GLUCOSE 106 mg/dl (70-99); POTASSIUM 3.4 mmol/L (3.5-5.1); SODIUM 137 mmol/L (136-145)
[2017-06-20 22:12] LABS: ALKALINE PHOSPHATASE 107 U/L (45-117); AST/SGOT 23 U/L (15-37); CKMB 3.9 ng/ml (0.5-3.6); TOTAL PROTEIN 8.1 gm/dl (6.4-8.2)
[2017-06-20] MEDS ORDERED: SIMV20TA2 PO (22:31)
[2017-06-20] MEDS ORDERED: SUCR1TAB29 PO (22:31)
[2017-06-20] MEDS ORDERED: ZNTT/150 PO (22:31)
[2017-06-20] MEDS ORDERED: RIZA10TA18 PO (22:31)
[2017-06-20] MEDS ORDERED: GI COCKTAIL PO STA (23:16)
[2017-06-20] MEDS ORDERED: ALUMINUM/MAGNESIUM SUSP 30 ML UDC ONE (23:22)
[2017-06-20] MEDS ORDERED: LIDOCAINE HCL 2% VISC SOLN 20 ML UDC ONE (23:22)
--- NOTE | 2017-06-20 23:24 | EMERGENCY ROOM VISIT NOTE ---
ED Visit Note First contact with patient: 21:19 While the patient was waiting to see the hospitalist, she began complaining of some heartburn. She has a history of reflux. A repeat EKG was done, no acute ischemia, no evidence for any change in her EKG. EKG showed a sinus bradycardia with LVH. The patient was given a GI cocktail for the presumed reflux.
[2017-06-21] MEDS ORDERED: ONDANSETRON INJ 2 MG/ML 2 ML VIAL IV PRN (00:30)
[2017-06-21] MEDS ORDERED: ALUMINUM/MAGNESIUM/SIMETH (MAALOX MAX) 30 ML UDC PO PRN (00:30)
[2017-06-21] MEDS ORDERED: ACETAMINOPHEN 325 MG TAB PO PRN (00:30)
[2017-06-21] MEDS ORDERED: MAGNESIUM HYDROXIDE SUSP 30 ML UDC PO PRN (00:30)
[2017-06-21] MEDS ORDERED: MoRPHine SULFATE 2 MG/ML CARP IV PRN (00:30)
[2017-06-21] MEDS ORDERED: POLYETHYLENE (MIRALAX) 17 GM PACK PO PRN (00:30)
[2017-06-21] MEDS ORDERED: NITROGLYCERIN 0.4 MG SL PER TAB CHARGE SL PRN (00:30)
[2017-06-21] MEDS ORDERED: LORAZEPAM 0.5 MG TAB PO PRN (00:45)
[2017-06-21] MEDS ORDERED: OXYCODONE HCL IR 5 MG TAB (IMMEDIATE RELEASE) PO PRN (00:45)
[2017-06-21] MEDS ORDERED: CLONIDINE HCL 0.1 MG PO PRN (00:45)
[2017-06-21] MEDS ORDERED: ALBUT/IPRATROP 3MG/0.5MG NEB 3 ML VIAL INH PRN (00:45)
[2017-06-21] MEDS ORDERED: SUCRALFATE 1 GM TAB PO PRN (00:45)
--- NOTE | 2017-06-21 01:11 | History and Physical ---
History & Physical Date & Time of Service: Jun 21, 2017 at 00:53 Chief Complaint: Dental Pain Primary Care Physician: Tiffanie Lugo C.R.N.P History of Present Illness Source: patient 66 y/o F Hx COPD, HTN, HPL, hypothyroid, breast CA. Presents with B/L jaw pain which has been moderate to severe and persistent. She denies CP or SOB. She had a markedly elevated BP at the time of arrival which responded well to a dose of IV Metoprolol and transdermal NTG. Past Medical/Surgical History Medical Problems: (1) Anxiety State Nos Status: Chronic (2) Asthma Status: Chronic (3) Benign hypertension Status: Chronic 1) COPD 2) HTN 3) HPL 4) Hypothyroidism 5) Breast CA - B/L mastectomy Surgical Problems: 1) S/P mastectomy, bilateral 2) Tubal Ligation Status Family History Diabetes mellitus FH: heart attack FHx: heart disease Hypertension Social History Quit smoking 2009, does not drink Smoking Status: Former Smoker Drug Use: none Marital Status: single, Housing status: lives alone Occupational Status: disabled Immunizations History of Influenza Vaccine: Yes Influenza Vaccine Date: Apr 03, 2013 History of Tetanus Vaccine?: unk Tetanus Immunization Date: Apr 08, 2003 History of Pneumococcal: Yes Pneumococcal Date: Jun 12, 2010 History of Hepatitis B Vaccine: No Multi-Drug Resistant Organisms History of MDRO: No Allergies Coded Allergies: Hydralazine (Verified Allergy, Unknown, joint pain, 06/20/17) pt Tetracycline (Verified Allergy, Unknown, UNKNOWN, 06/20/17) Amlodipine (Verified Adverse Reaction, Mild, Edema., 06/20/17) Home Medications Scheduled Cholecalciferol (Vitamin D3), 1 TAB PO DAILY Felodipine (Plendil Er), 2.5 MG PO DAILY Furosemide (Lasix), 20 MG PO DAILY Levothyroxine Sodium (Levothyroxine Sodium), 0.5 TAB PO DAILY Losartan Potassium (Cozaar), 100 MG PO DAILY Metoprolol Succinate (Toprol Xl), 12.5 MG PO DAILY Ranitidine (Zantac), 150 MG PO QAM Sertraline (Zoloft), 100 MG PO DAILY Simvastatin (Zocor), 20 MG PO HS Spironolactone (Aldactone), 25 MG PO DAILY Scheduled PRN Clonidine Hcl (Catapres), 0.1 MG PO BID PRN for Hypertension Ipratropium-Albuterol (Duoneb), 1 TREATMENT INH Q4H PRN for Wheezing Ipratropium-Albuterol (Combivent Respimat), 1 PUFFS INH QID PRN for Lorazepam (Ativan), 0.5 MG PO HS PRN for INSOMNIA Oxycodone Immediate Rel Tab (Roxicodone Ir), 1-2 TAB PO Q6 PRN for Pain Rizatriptan Benzoate (Maxalt), 10 MG PO Q2 PRN for Migraine Sucralfate (Carafate), 1 GM PO ACHS PRN for Review of Systems Constitutional: No fever, No chills, No sweats Eyes: No worsening of vision ENT: No hearing loss, No unusual epistaxis, No nasal symptoms Respiratory: No cough, No sputum, No wheezing Cardiovascular: + problem reported (b/l jaw pain), No chest pain, No PND Abdomen: No pain, No vomiting Musculoskeletal: No joint pain Genitourinary - Female: No dysuria, No urinary frequency, No urinary urgency Neurologic: No memory loss, No weakness Psychiatric: No depression symptoms Endocrine: No fatigue Hematologic / Lymphatic: No abnormal bleeding/bruising Integumentary: No rash Allergic / Immunologic: No environmental allergies Physical Exam Vital Signs Date Time Temp Pulse Resp B/P (MAP) Pulse Ox O2 Delivery O2 Flow Rate FiO2 06/21/17 00:23 63 18 113/62 96 Room Air 06/20/17 23:16 68 18 114/79 98 Room Air 06/20/17 22:11 127/74 96 Room Air 06/20/17 22:06 123/78 06/20/17 22:01 140/77 06/20/17 21:56 154/78 06/20/17 21:51 159/101 06/20/17 21:48 71 17 06/20/17 21:47 174/99 06/20/17 21:43 81 202/110 06/20/17 21:36 Room Air 06/20/17 21:36 37.4 99 18 202/110 96 Room Air 06/20/17 21:31 73 06/20/17 21:21 202/110 General Appearance: WD/WN, no apparent distress Head: normocephalic Eyes: normal inspection ENT: normal ENT inspection, hearing grossly normal Neck: supple, no JVD Respiratory/Chest: chest non-tender, lungs clear, normal breath sounds Cardiovascular: regular rate, rhythm, no edema, no gallop Abdomen/GI: normal bowel sounds, non tender, soft Back: normal inspection, no CVA tenderness, no muscle spasm, normal range of motion Extremities/Musculoskelatal: normal inspection, no calf tenderness, normal capillary refill 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, no motor/sensory deficits, alert, oriented x 3 Skin: normal color Diagnostics Laboratory Results Results Past 24 Hours Test 06/20/17 21:36 Range/Units White Blood Count 8.97 4.8-10.8 K/uL Red Blood Count 4.81 4.2-5.4 M/uL Hemoglobin 14.7 12.0-16.0 g/dL Hematocrit 42.0 37-47 % Mean Corpuscular Volume 87.3 80-100 fL Mean Corpuscular Hemoglobin 30.6 25-34 pg Mean Corpuscular Hemoglobin Concent 35.0 32-36 g/dl RDW Standard Deviation 43.0 36.4-46.3 fL RDW Coefficient of Variation 13.5 11.5-14.5 % Platelet Count 237 130-400 K/uL Mean Platelet Volume 9.5 7.4-10.4 fL Prothrombin Time 10.0 9.0-12.0 SECONDS Prothromb Time International Ratio 1.0 0.9-1.1 Activated Partial Thromboplast Time 29.4 21.0-31.0 SECONDS Partial Thromboplastin Ratio 1.1 Sodium Level 137 136-145 mmol/L Potassium Level 3.4 3.5-5.1 mmol/L Chloride Level 103 98-107 mmol/L Carbon Dioxide Level 25 21-32 mmol/L Anion Gap 9.0 3-11 mmol/L Blood Urea Nitrogen 13 7-18 mg/dl Creatinine 1.09 0.60-1.20 mg/dl Est Creatinine Clear Calc Drug Dose 49.9 ml/min Estimated GFR () 60.4 Estimated GFR (Non- 52.1 BUN/Creatinine Ratio 11.7 10-20 Random Glucose 106 70-99 mg/dl Calcium Level 9.8 8.5-10.1 mg/dl Total Bilirubin 0.3 0.2-1 mg/dl Aspartate Amino Transf (AST/SGOT) 23 15-37 U/L Alanine Aminotransferase (ALT/SGPT) 29 12-78 U/L Alkaline Phosphatase 107 45-117 U/L Total Creatine Kinase 160 26-192 U/L Creatine Kinase MB 3.9 0.5-3.6 ng/ml Creatine Kinase MB Ratio 2.4 0-3.0 Troponin I < 0.015 0-0.045 ng/ml Total Protein 8.1 6.4-8.2 gm/dl Albumin 4.3 3.4-5.0 gm/dl Globulin 3.8 2.5-4.0 gm/dl Albumin/Globulin Ratio 1.1 0.9-2 Impression Assessment and Plan 66 y/o F Hx COPD, HTN, HPL, hypothyroid, breast CA. Presents with B/L jaw pain which has been moderate to severe and persistent. She denies CP or SOB. She had a markedly elevated BP at the time of arrival which responded well to a dose of IV Metoprolol and transdermal NTG. 1) Jaw pain - concern for anginal equivalent - will obtain serial troponins. Pain had resolved with treatment of HTN. 2) HTN - responded to Bblocker and NTG - will continue scheduled meds AM - may need adjustment based on trend. 3) COPD - no evidence of exacerbation - cont inhalers as needed 4) Hypothyroidism - cont Synthroid Full code - Heparin prophylaxis Total time for this admit including review of labs, meds, imaging - discussion with pt and ER attending - 36 min Level of Care Telemetry Resuscitation Status FULL RESUSCITATION VTE Prophylaxis VTE Risk Assessment Done? Y/N: Yes Risk Level: Moderate Given or contraindicated: Unfractionated heparin SQ
[2017-06-21] MEDS ORDERED: IV FLUIDS COMPLETED PRN (01:30)
[2017-06-21 01:40] VITALS: BP 144/78; PULSE 81; TEMP 36.9; O2SAT 94; Ht 167.6 cm; Wt 76.5 kg
[2017-06-21] MEDS ORDERED: POTASSIUM CHLORIDE PWD 20 MEQ PACK PO ONE (02:00)
[2017-06-21 04:00] VITALS: BP 101/51; PULSE 66; TEMP 37; O2SAT 96
[2017-06-21] MEDS ORDERED: HEPARIN SOD 5000 UNIT/0.5 ML CARP SQ SCH (06:00)
[2017-06-21] MEDS ORDERED: LEVOTHYROXINE 125 MCG TAB PO SCH (06:30)
[2017-06-21 07:28] VITALS: BP 111/70; PULSE 60; TEMP 36.9; O2SAT 98
[2017-06-21 07:52] VITALS: O2SAT 98
[2017-06-21] MEDS ORDERED: METOPROLOL SUCC 25MG EXT REL TAB PO SCH (09:00)
[2017-06-21] MEDS ORDERED: SERTRALINE HCL 100 MG TAB PO SCH (09:00)
[2017-06-21] MEDS ORDERED: FUROSEMIDE 20 MG TAB PO SCH (09:00)
[2017-06-21] MEDS ORDERED: FELODIPINE 2.5 MG TABCR PO SCH (09:00)
[2017-06-21] MEDS ORDERED: RANITIDINE HCL 150 MG TAB PO SCH (09:00)
[2017-06-21] MEDS ORDERED: LOSARTAN POTASSIUM 50 MG TAB PO SCH (09:00)
[2017-06-21] MEDS ORDERED: SPIRONOLACTONE 25 MG TAB PO SCH (09:00)
--- NOTE | 2017-06-21 11:06 | Discharge Instructions ---
Discharge Instructions Date of Service Jun 21, 2017. Admission Reason for Admission: Angina At Rest, Htn Discharge Discharge Diagnosis / Problem: Chest pain at rest due to indigestion Discharge Goals Goal(s): Decrease discomfort, Improve function, Increase independence, Improve disease control Activity Recommendations Activity Limitations: resume your previous activity Exercise/Sports Limitations: none May Resume Sexual Activity: when tolerated Shower/Bathe: no limitations Driving or Machine Use: no limitations . Instructions / Follow-Up Instructions / Follow-Up You were admitted to [facility] with chest pain(angina) at rest and diagnosed with chest pain secondary to indigestion. During your stay here you were treated with supportive care. Cardiac enzymes were trended and were negative, several EKGs were conducted and overnight telemetry monitoring was done and there were no abnormalities. Your blood pressure also improved throughout your stay. You should follow up with your family physician within 1 week and discuss if an exercise stress test should be conducted. At this time your risk for cardiac involvement is LOW based upon presentation, studies, labs and family history. Medications: Continue taking your medications as above. Continue taking rantidine and carafate for indigestion. Discuss restarting omeprazole with your PCP. Appointments: Follow up with your Primary Care Provider within 1 week. Current Hospital Diet Patient's current hospital diet: AHA Diet (Heart Healthy) Discharge Diet Recommended Diet: AHA Diet (Heart Healthy) Pending Studies Studies pending at discharge: no Medical Emergencies . Who to Call and When: Medical Emergencies: If at any time you feel your situation is an emergency, please call 911 immediately. . Non-Emergent Contact Non-Emergency issues call your: Primary Care Provider Call Non-Emergent contact if: you have a fever, your pain is not controlled, your pain is worsening, your pain is unusual for you, your pain is concerning you . Past History Medical & Surgical History: (1) Angina at rest (2) HTN (hypertension) . "Provider Documentation" section prepared by Radha Mccall. . VTE Core Measure Inpt VTE Proph given/why not?: Unfractionated heparin SQ
[2017-06-21 11:12] VITALS: BP 120/69; PULSE 70; TEMP 36.8; O2SAT 91
--- NOTE | 2017-06-21 11:43 | Discharge Summary ---
Discharge Summary Date of Service Jun 21, 2017. Discharge Summary Admission Date: Jun 21, 2017 at 00:31 Discharge Date: Jun 21, 2017 Principal Diagnosis: Chest pain Problems/Secondary Diagnoses: Breast Cx HTN GERD Hypothyroidism Immunizations: Have You Had Influenza Vaccine: Yes Influenza Vaccine Date: Apr 03, 2013 History of Tetanus Vaccine?: unk Tetanus Immunization Date: Apr 08, 2003 History of Pneumococcal: Yes Pneumococcal Date: Jun 12, 2010 History of Hepatitis B Vaccine: No Procedures: CHEST ONE VIEW PORTABLE 06/20/17 FINDINGS: Upper lobe predominant emphysema is noted. Biapical opacities are unchanged and favor scarring. There is no pneumothorax or pleural effusion. Cardiomegaly is unchanged. There is no evidence for pulmonary edema. There is no consolidation to suggest pneumonia. Old left-sided rib fractures are noted. IMPRESSION: No change in appearance of the chest. Upper lobe predominant emphysema and scarring with no acute cardiopulmonary findings. Consultations: None Medication Reconciliation Continued Medications: Cholecalciferol (Vitamin D3) 2,000 Unit Tab 1 TAB PO DAILY for 90 Days, #90 TAB 3 Refills Clonidine Hcl (Catapres) 0.2 Mg Tab 0.1 MG PO BID PRN for Hypertension, TAB Felodipine (Plendil Er) 2.5 Mg Tab 2.5 MG PO DAILY Furosemide (Lasix) 20 Mg Tab 20 MG PO DAILY Ipratropium-Albuterol (Duoneb) 3 Ml Nebu 1 TREATMENT INH Q4H PRN for Wheezing Ipratropium-Albuterol (Combivent Respimat) 1 Aer Aer 1 PUFFS INH QID PRN for , INH MAX= 6 PUFFS IN 24HRS Levothyroxine Sodium (Levothyroxine Sodium) 125 Mcg Tab 0.5 TAB PO DAILY TAKE HALF A TABLET DAILY. Lorazepam (Ativan) 0.5 Mg Tab 0.5 MG PO HS PRN for INSOMNIA, TAB Losartan Potassium (Cozaar) 100 Mg Tab 100 MG PO DAILY Metoprolol Succinate (Toprol Xl) 25 Mg Tabcr 12.5 MG PO DAILY Oxycodone Immediate Rel Tab (Roxicodone Ir) 5 Mg Tab 1-2 TAB PO Q6 PRN for Pain, #20 TAB Ranitidine (Zantac) 150 Mg Tab 150 MG PO QAM, TAB Rizatriptan Benzoate (Maxalt) 10 Mg Tab 10 MG PO Q2 PRN for Migraine, TAB Sertraline (Zoloft) 100 Mg Tab 100 MG PO DAILY Simvastatin (Zocor) 20 Mg Tab 20 MG PO HS, TAB Spironolactone (Aldactone) 25 Mg Tab 25 MG PO DAILY Sucralfate (Carafate) 1 Gm Tab 1 GM PO ACHS PRN for , TAB Discharge Exam The patient was seen and examined this morning. Pt reports doing well at this time other than other than still having some jaw pain. She reports her left upper jaw pain is related to dental extraction which was completed 3 weeks ago, she has another dental surgery scheduled for this afternoon. She denies any chest pain at rest or on exertion. She denies any difficulty with breathing or shortness of breath. Pt has no acute complaints and all her questions were answered. Review of Systems: Constitutional: No fever, No chills, No sweats, No weight loss, No fatigue Eyes: No redness, No diplopia ENT: + problem reported (left upper jaw pain, + open left mandibular tooth extraction, + white material inside cavity, no surrounding erythema), No sore throat, No trouble swallowing Respiratory: No cough, No sputum, No wheezing, No shortness of breath Cardiovascular: No chest pain, No edema Abdomen: + problem reported (indigestion ), No pain, No nausea, No vomiting , No diarrhea, No constipation Musculoskeletal: No joint pain, No swelling, No calf pain Genitourinary - Male: No hematuria Neurologic: No weakness, No numbness/tingling Psychiatric: No depression symptoms, No anxiety Endocrine: No fatigue Integumentary: No rash, No itch Physical Exam: General Appearance: WD/WN, no apparent distress Eyes: PERRL, EOMI ENT: hearing grossly normal, pharynx normal Neck: supple, no JVD Respiratory/Chest: chest non-tender, lungs clear, no respiratory distress, no accessory muscle use Cardiovascular: regular rate, rhythm, no murmur, normal peripheral pulses Abdomen / GI: normal bowel sounds, non tender, soft Extremities: no calf tenderness, no pedal edema Neurologic/Psychiatric: alert, normal mood/affect, oriented x 3 Skin: normal color, warm/dry Hospital Course 66 y/o F Hx COPD, HTN, HPL, hypothyroid, breast CA. Presents with B/L jaw pain which has been moderate to severe and persistent. She denies CP or SOB. She had a markedly elevated BP at the time of arrival which responded well to a dose of IV Metoprolol and transdermal NTG. Physical Exam General Appearance: WD/WN, no apparent distress Head: normocephalic Eyes: normal inspection ENT: normal ENT inspection, hearing grossly normal Neck: supple, no JVD Respiratory/Chest: chest non-tender, lungs clear, normal breath sounds Cardiovascular: regular rate, rhythm, no edema, no gallop Abdomen/GI: normal bowel sounds, non tender, soft Back: normal inspection, no CVA tenderness, no muscle spasm, normal range of motion Extremities/Musculoskeletal: normal inspection, no calf tenderness, normal capillary refill Neurologic/Psych: intermediate accountant II-XII nml as tested, no motor/sensory deficits, alert, oriented x 3 Skin: normal color Hospital Course: This is a 66 y/o F Hx COPD, HTN, HPL, hypothyroid, breast CA. Presents with B/ L jaw pain which has been moderate to severe and persistent. She denies CP or SOB. She had a markedly elevated BP at the time of arrival which responded well to a dose of IV Metoprolol and transdermal NTG. The patient had a dental extraction 3 weeks ago which was invasive and involved multiple incisions. She has dental surgery with [facility] scheduled for 06/21 at 4:30. Her BP has improved. She denies acute chest pain or shortness of breath. Troponins were negative x 3 and EKG was also negative on repeat. Pt should follow up with her PCP within 1 week and discuss having a treadmill stress test if needed upon recurrence of chest pain or jaw pain. At this time it was determined that the patients cardiac risk was LOW. Pt was discharged to home. 1) Jaw pain - concern for anginal equivalent - serial troponins- all negative. Pain had resolved with treatment of HTN. 2) HTN - responded to Bblocker and NTG - continue [employer]YSICI[employer]IST[employer] meds 3) COPD - no evidence of exacerbation - cont inhalers as needed 4) Hypothyroidism - cont Synthroid Full code - Heparin prophylaxis Total Time Spent: Greater than 30 minutes This includes examination of the patient, discharge planning, medication reconciliation, and communication with other providers. Discharge Instructions Please refer to the electronic Patient Visit Report (Discharge Instructions) for additional information. Follow-Up Follow up with your Primary Care Provider within 1 week. Additional Copies To Tiffanie Lugo C.R.N.P
[2017-06-21 11:48] VITALS: BP 120/69; PULSE 70; TEMP 36.8; O2SAT 91
[2017-06-21] MEDS ORDERED: SIMVASTATIN 20 MG TAB PO SCH (21:00)
== END 2017-06-21 12:10 | disposition home or self-care (01) ==
LOC: EDBD 21:18 → C.EDA 21:19 → C.MED 06-21 00:31 → ENRESERV 06-21 01:05
PROVIDERS: ADMIT Internal Medicine; ATTEND Hospitalist
DX: K30 Functional dyspepsia (principal); R68.84 Jaw pain; I10 Essential (primary) hypertension; K21.9 Gastro-esophageal reflux disease without esophagitis; E03.9 Hypothyroidism, unspecified; J43.9 Emphysema, unspecified; E78.5 Hyperlipidemia, unspecified; E11.9 Type 2 diabetes mellitus without complications; I25.10 Atherosclerotic heart disease of native coronary artery without angina pectoris; Z87.01 Personal history of pneumonia (recurrent); Z87.440 Personal history of urinary (tract) infections; Z90.13 Acquired absence of bilateral breasts and nipples; Z85.3 Personal history of malignant neoplasm of breast; Z83.3 Family history of diabetes mellitus; Z82.49 Family history of ischemic heart disease and other diseases of the circulatory system

== ENCOUNTER → 2017-06-30 | Outpatient (CLI) | payer OTHER ==
[~2017-06-30] MED LIST changes: -PANT40TA PO; +RIZA10TA18 PO; +SIMV20TA2 PO; +SUCR1TAB29 PO; +ZNTT/150 PO
[2017-06-30 13:06] LABS: BLOOD UREA NITROGEN 18 mg/dl (7-18); BUN/CREATININE RATIO 19.1 (10-20); CARBON DIOXIDE 27 mmol/L (21-32); CHLORIDE 103 mmol/L (98-107); CREATININE 0.95 mg/dl (0.60-1.20); GLUCOSE 109 mg/dl (70-99); POTASSIUM 4.3 mmol/L (3.5-5.1); SODIUM 136 mmol/L (136-145)
[2017-06-30 13:07] LABS: PHOSPHORUS 3.4 mg/dl (2.5-4.9)
== END | disposition home or self-care (01) ==
LOC: C.LABPVFM 10:44
PROVIDERS: ATTEND Nurse Practitioner
DX: I10 Essential (primary) hypertension (principal); K21.9 Gastro-esophageal reflux disease without esophagitis; R25.2 Cramp and spasm

== ENCOUNTER → 2017-07-07 | Outpatient (CLI) | payer OTHER ==
[~2017-07-07] MED LIST changes: +ACET-1256 PO; +ASPI81TA28 PO; +AZIT250T PO; +CHOL2000 PO; +CLON0.1T12 PO; +DEXT30TA7 PO; +DONE5TAB26 PO; +FELO1TAB7 PO; +GUAI100S6 PO; +IPRA-64 INH; -IPRASOL4 INH; -METO25TA3 PO; +METO25TA4 PO; +MULT-506 PO; +OXGN; +OXYC-737 PO; -OXYC1TAB3 PO; +PRED20TA2 PO; +PRED50TA PO; +RANI150T85 PO; +ULT50X PO; +VNTHFA/IN INH; -ZNTT/150 PO
--- NOTE | 2017-07-07 11:55 | DIAGNOSTIC IMAGING REPORT ---
SOFT TISS HEAD/NECK-THYROID CLINICAL HISTORY: 66 years-old Female with R22.1 Mass in neckfirm mass R side neck- suspect lymph nodeULTR7. COMPARISON: CT chest 09/20/2016 TECHNIQUE: Multiple real time sonographic images of the right lateral neck were obtained accessing adams scale appearance and color doppler flow. FINDINGS: Within the area of concern within the right lateral neck there is a normal-appearing lymph node which measures 1.8 x 0.8 x 1.1 cm with a normal fatty hilum. No focal soft tissue masses or collections identified. No pathologically enlarged lymph nodes. IMPRESSION: Normal sized lymph node corresponds with the area of palpable concern. This is likely physiologic. If there is concern for progressive enlargement, a follow-up ultrasound may be considered. The above report was generated using voice recognition software. It may contain grammatical, syntax or spelling errors. Electronically signed by: Marck Olivares M.D. 07/07/2017 11:54 AM Dictated Date/Time: 07/07/2017 11:52 AM
== END | disposition home or self-care (01) ==
LOC: C.ULTRBC 11:20
PROVIDERS: ATTEND Nurse Practitioner
DX: R22.1 Localized swelling, mass and lump, neck (principal)

== ENCOUNTER 2017-07-30 19:22 | Emergency (ER) | payer OTHER ==
[~2017-07-30] VITALS: Ht 167.6 cm; Wt 79.6 kg
[~2017-07-30 19:22] MED LIST changes: -ACET-1256 PO; -ASPI81TA28 PO; -AZIT250T PO; -CHOL2000 PO; -CLON0.1T12 PO; -DEXT30TA7 PO; -DONE5TAB26 PO; -FELO1TAB7 PO; -GUAI100S6 PO; -IPRA-64 INH; +IPRASOL4 INH; +METO25TA3 PO; -METO25TA4 PO; -MULT-506 PO; -OXGN; -OXYC-737 PO; +OXYC1TAB3 PO; -PRED20TA2 PO; -PRED50TA PO; -RANI150T85 PO; -ULT50X PO; -VNTHFA/IN INH; +ZNTT/150 PO
[2017-07-30 19:33] VITALS: Ht 167.6 cm; Wt 79.6 kg
--- NOTE | 2017-07-30 19:49 | EMERGENCY ROOM VISIT NOTE ---
History Report prepared by Ramiro: Emeka Avery Under the Supervision of: Elizabeth GodwinO. First contact with patient: 19:35 Chief Complaint: FLU LIKE SX Stated Complaint: SOB History of Present Illness The patient is a 66 year old female who presents to the Emergency Room with complaints of worsening flu-like symptoms that started 4 or 5 days ago. She says that she initially started with a sore throat, with ear pain, a headache, and a stuffy nose. She notes that recently she has been having "coughing fits", so bad that she gets some pain in her chest. The patient says that she is now able to blow out some dark yellow discharge from her nose. She notes that she is coughing up different colors, and it is thick. She adds that she has been somewhat short of breath due to the frequent coughing. She says that she was given a breathing treatment in the ambulance, which helped. The patient states that she has been taking Mucinex, Delsym, and Tessalon Pearls at home. She says that she is an ex-smoker. The patient states that she does not take any blood thinners. She adds that she has been urinating more frequently recently. She has a noted history of pneumonia and bronchitis. She says that she has not had any known recent contacts who have had whooping cough or tuberculosis. Based on history no potential exposure of legionaries. The patient denies any bowel movement changes or leg swelling. She notes no history of a heart attack or heart failure. Source of History: patient Onset: 4 or 5 days ago Position: other (global - flu-like symptoms) Timing: worsening Associated Symptoms: + headache, + sorethroat, + cough, + chest pain, + SOB , + urinary symptoms (more frequent) Note: Denies bowel movement changes or leg swelling. Review of Systems See HPI for pertinent positives & negatives. A total of 10 systems reviewed and were otherwise negative. Past Medical & Surgical Medical Problems: (1) Angina at rest (2) Anxiety State Nos (3) Asthma (4) Benign hypertension (5) Chr Airway Obstruct Nec (6) Chronic Obstructive Asthma, Nos (7) Coron Atheroscler Nos Type Vessel, [place] Or Graft (8) Diab Alena Wo Compl, Type Ii Or Unspec Type, Uncontrolled (9) HTN (hypertension) (10) Hyperlipemia (11) Hypertensive urgency (12) Hypothyroidism (13) Hypothyroidism Nos (14) Pneumonia, Organism Nos (15) Pulmonary emphysema (16) Stage 3 Bilateral Breast Carcinoma (17) Tobacco Use Disorder (18) Urin Tract Infection Nos Surgical Problems: (1) S/P mastectomy, bilateral (2) Tubal Ligation Status Family History Diabetes mellitus FH: heart attack FHx: heart disease Hypertension Social History Smoking Status: Former Smoker Alcohol Use: none Drug Use: none Marital Status: single, Housing Status: lives alone Occupation Status: disabled Current/Historical Medications Scheduled Azithromycin (Zithromax), 250 MG PO DAILY Guaifenesin-Codeine (Guaifenesin/Codeine), 5-10 ML PO HS Levothyroxine Sodium (Levothyroxine Sodium), 0.5 TAB PO DAILY Losartan Potassium (Cozaar), 100 MG PO DAILY Metoprolol Succinate (Toprol Xl), 12.5 MG PO DAILY Prednisone (Prednisone Tab), 3 TAB PO DAILY Ranitidine (Zantac), 150 MG PO QAM Sertraline (Zoloft), 100 MG PO DAILY Simvastatin (Zocor), 20 MG PO HS Spironolactone (Aldactone), 25 MG PO DAILY Scheduled PRN Acetaminophen (Tylenol), 1,000 MG PO UD PRN for Pain or Fever Albuterol Hfa (Ventolin Hfa), 1-2 PUFFS INH Q6H PRN for SOB/Wheezing Dextromethorphan-Guaifenesin (Mucinex Dm), 1 TAB PO Q12 PRN for INDIGESTION Sucralfate (Carafate), 1 GM PO ACHS PRN for Allergies Coded Allergies: Hydralazine (Verified Allergy, Unknown, joint pain, 07/30/17) pt Tetracycline (Verified Allergy, Unknown, UNKNOWN, 07/30/17) Amlodipine (Verified Adverse Reaction, Mild, Edema., 07/30/17) Physical Exam Vital Signs Date Time Temp Pulse Resp B/P (MAP) Pulse Ox O2 Delivery O2 Flow Rate FiO2 07/30/17 23:05 82 136/80 96 07/30/17 20:48 36.9 95 21 121/69 89 Room Air 07/30/17 19:36 94 07/30/17 19:33 36.8 84 16 143/82 93 Room Air Physical Exam GENERAL: alert, well appearing, well nourished, no distress, non-toxic EYE EXAM: normal conjunctiva, PERRL and EOM's grossly intact OROPHARYNX: no exudate, no erythema, lips, buccal mucosa, and tongue normal and mucous membranes are moist NECK: supple, no nuchal rigidity, no adenopathy, non-tender LUNGS: Diminished breath sounds bilaterally. No wheezes, rhonchi, or rales. Frequent episodes of coughing. HEART: no murmurs, S1 normal and S2 normal ABDOMEN: abdomen soft, non-tender, normo-active bowel sounds, no masses, no rebound or guarding. BACK: Back is symmetrical on inspection and there is no deformity, no midline tenderness, no CVA tenderness. SKIN: no rashes and no bruising UPPER EXTREMITIES: upper extremities are grossly normal. LOWER EXTREMITIES: No pitting edema. NEURO EXAM: Normal sensorium, cranial nerves II-XII grossly intact, normal speech, no gross weakness of arms, no gross weakness of legs. Medical Decision & Procedures ER Provider Diagnostic Interpretation: X-ray results have been interpreted by the radiologist and reviewed by me. CHEST 2 VIEWS ROUTINE HISTORY: cough COMPARISON: Chest 06/20/2017. FINDINGS: No pneumothorax. No pleural effusions. The heart remains mildly enlarged. Chronic interstitial thickening persists. Emphysema. Stable scarlike densities within the lung apices. No new focal lung consolidations to suggest pneumonia. IMPRESSION: No significant change compared to the prior study. No acute process. Electronically signed by: Moe Hills M.D 07/30/2017 9:06 PM Dictated Date/Time: 07/30/2017 9:05 PM Laboratory Results 07/30/17 20:15 Red Blood Count 4.16, Mean Corpuscular Volume 85.8, Mean Corpuscular Hemoglobin 29.6, Mean Corpuscular Hemoglobin Concent 34.5, Mean Platelet Volume 9.4, Neutrophils (%) (Auto) 47.9, Lymphocytes (%) (Auto) 36.0, Monocytes (%) (Auto) 10.6, Eosinophils (%) (Auto) 5.2, Basophils (%) (Auto) 0.2, Neutrophils # (Auto ) 4.08, Lymphocytes # (Auto) 3.07, Monocytes # (Auto) 0.90, Eosinophils # (Auto ) 0.44, Basophils # (Auto) 0.02 07/30/17 20:15 Test 07/30/17 19:35 07/30/17 20:15 07/30/17 20:24 Influenza Type A (RT-PCR) Neg for Influ A (NEG) Influenza Type B (RT-PCR) Neg for Influ B (NEG) White Blood Count 8.52 K/uL (4.8-10.8) Red Blood Count 4.16 M/uL (4.2-5.4) Hemoglobin 12.3 g/dL (12.0-16.0) Hematocrit 35.7 % (37-47) Mean Corpuscular Volume 85.8 fL (80-100) Mean Corpuscular Hemoglobin 29.6 pg (25-34) Mean Corpuscular Hemoglobin Concent 34.5 g/dl (32-36) Platelet Count 225 K/uL (130-400) Mean Platelet Volume 9.4 fL (7.4-10.4) Neutrophils (%) (Auto) 47.9 % Lymphocytes (%) (Auto) 36.0 % Monocytes (%) (Auto) 10.6 % Eosinophils (%) (Auto) 5.2 % Basophils (%) (Auto) 0.2 % Neutrophils # (Auto) 4.08 K/uL (1.4-6.5) Lymphocytes # (Auto) 3.07 K/uL (1.2-3.4) Monocytes # (Auto) 0.90 K/uL (0.11-0.59) Eosinophils # (Auto) 0.44 K/uL (0-0.5) Basophils # (Auto) 0.02 K/uL (0-0.2) RDW Standard Deviation 42.7 fL (36.4-46.3) RDW Coefficient of Variation 13.6 % (11.5-14.5) Immature Granulocyte % (Auto) 0.1 % Immature Granulocyte # (Auto) 0.01 K/uL (0.00-0.02) D-Dimer 470 ug/L FEU (0-500) Anion Gap 8.0 mmol/L (3-11) Est Creatinine Clear Calc Drug Dose 44.4 ml/min Estimated GFR () 49.3 Estimated GFR (Non- 42.5 BUN/Creatinine Ratio 14.6 (10-20) Calcium Level 9.7 mg/dl (8.5-10.1) Total Bilirubin 0.2 mg/dl (0.2-1) Aspartate Amino Transf (AST/SGOT) 43 U/L (15-37) Alanine Aminotransferase (ALT/SGPT) 35 U/L (12-78) Alkaline Phosphatase 96 U/L (45-117) Troponin I < 0.015 ng/ml (0-0.045) Pro-B-Type Natriuretic Peptide 102 pg/ml (0-900) Total Protein 7.0 gm/dl (6.4-8.2) Albumin 3.5 gm/dl (3.4-5.0) Globulin 3.5 gm/dl (2.5-4.0) Albumin/Globulin Ratio 1.0 (0.9-2) Bedside Lactic Acid Venous 1.36 mmol/L (0.90-1.70) Laboratory results per my review. Medications Administered Medications (Trade) Dose Ordered Sig/Hazel Route Start Time Stop Time Status Last Admin Dose Admin Methylprednisolone Sodium Succinate 80 mg/Syringe 1.28 ml @ 1.5 mls/min NOW STAT IV 07/30/17 20:03 07/30/17 20:06 DC 07/30/17 20:50 1.5 MLS/MIN Albuterol/ Ipratropium (Duoneb) 3 ml NOW STAT INH 07/30/17 20:03 07/30/17 20:06 DC 07/30/17 20:27 3 ML Benzonatate (Tessalon Perles Cap) 100 mg NOW ONCE PO 07/30/17 21:15 07/30/17 21:16 DC 07/30/17 21:12 100 MG Azithromycin (Zithromax Tab) 500 mg NOW ONCE PO 07/30/17 21:45 07/30/17 21:46 DC 07/30/17 22:52 500 MG ECG Indication: SOB/dyspnea Rate (beats per minute): 79 Rhythm: normal sinus, other (poor EKG quality tracing) Findings: PAC, no acute ischemic change, other (normal axis) Change: EKG: Patient's electrocardiogram per my interpretation. ED Course 1938: The patient was evaluated in room A3. A complete history and physical exam was performed. 2002: Ordered Duoneb 3 ml INH, Methylprednisone Sodium Succinate 80 mg/Syringe 1.28 ml @ 1.5 mls/min IV. 2114: Ordered Tessalon Perles Cap 100 mg PO. 2140: I reevaluated the patient and she is still coughing a lot. 2144: Ordered Zithromax Tab 500 mg PO. 2214: Upon reevaluation, the patient is resting. I discussed the findings and the treatment plan with the patient. She verbalizes agreement and understanding. She will be discharged home. 2248: I reevaluated the patient and she is now comfortable to go home. Medical Decision Differential diagnoses includes but is not limited to pneumonia, bronchitis, COPD/Asthma exacerbation, pneumothorax, pulmonary embolism, congestive heart failure, acute coronary syndrome Patient well-appearing here despite complaints, however does have frequent cough. Patient's small flecks of blood that she saw in her sputum home likely due to ureteral irritation from frequent forceful coughing. I do not suspect PE much lower suspicion of mass. No evidence of acute pneumonia on chest x- ray. Given prior history of smoking patient wears oxygen at night. This started the emergency room for comfort. Patient states has previously been treated for bronchitis as well as exacerbation of COPD. Patient was never previously been intubated. Patient would have mild relative hypoxia to the upper 80s with fits of coughing, otherwise had saturations in the low 90s on room air, felt subjectively better with nasal cannula at her usual amount. Patient has nebulizer and MDI at home already. She agreeable with plan for steroids and course of antibiotics. No evidence of bacteremia/sepsis, doubt cardiac etiology. Patient otherwise with stable vital signs, tolerating sips of by mouth bedside, ambulatory with a steady gait to the bathroom multiple times. Discussed with her close follow-up with her family doctor as precaution , symptoms to watch and return for, she verbalized understanding was agreeable with plan. I did request that the patient be called back tomorrow as a precaution to check on her condition. Medication Reconcilliation Current Medication List: was personally reviewed by me Blood Pressure Screening Patient's blood pressure: Normal blood pressure Impression Primary Impression: Acute bronchitis Additional Impression: Upper respiratory infection Scribe Attestation The scribe's documentation has been prepared under my direction and personally reviewed by me in its entirety. I confirm that the note above accurately reflects all work, treatment, procedures, and medical decision making performed by me. Departure Information Dispostion Home / Self-Care Prescriptions Guaifenesin-Codeine (GUAIFENESIN/CODEINE) 1 Melvina Melvina 5-10 ML PO HS for Cough, #240 ML Prov: Zulema Bunn, DO 07/30/17 Prednisone (Prednisone Tab) 20 Mg Tab 3 TAB PO DAILY, #12 TAB FOR 4 DAYS Prov: Zulema Bunn, DO 07/30/17 Azithromycin (Zithromax) 250 Mg Tab 250 MG PO DAILY, #4 TAB Prov: Zulema Bunn, DO 07/30/17 Referrals Tiffanie Lugo C.R.N.P (PCP) Patient Instructions My [facility] Additional Instructions Please follow up with your family doctor as precaution. Please continue wearing your oxygen at night as previously instructed. You may use your breathing treatments up to every 4 hours as needed for shortness of breath/ wheezing. Please take the steroids and antibiotic as prescribed. You may use the cough syrup at night. Do not take it during the day and drive as there is a narcotic present in the medication. Please drink plenty of water. If you have any worsening cough, increased shortness of breath, fevers, or coughing up blood, develop vomiting, rashes or sores, chest pain, dizziness, or you have any other new concerns please return the emergency room. Problem Qualifiers Primary Impression: Acute bronchitis Bronchitis organism: unspecified organism Qualified Codes: J20.9 - Acute bronchitis, unspecified Additional Impression: Upper respiratory infection URI type: unspecified URI Qualified Codes: J06.9 - Acute upper respiratory infection, unspecified
[2017-07-30] MEDS ORDERED: METHYLPREDNISOLONE IV 80 MG in SYRINGE 0 ML IV STA (20:03)
[2017-07-30] MEDS ORDERED: ALBUT/IPRATROP 3MG/0.5MG NEB 3 ML VIAL INH STA (20:03)
[2017-07-30 20:29] LABS: BASO % 0.2 %; BASO ABS # 0.02 K/uL (0-0.2); EOS % 5.2 %; EOS ABS # 0.44 K/uL (0-0.5); HEMATOCRIT 35.7 % (37-47); HEMOGLOBIN 12.3 g/dL (12.0-16.0); IG# 0.01 K/uL (0.00-0.02); LYMPH ABS # 3.07 K/uL (1.2-3.4); MEAN CELL VOLUME 85.8 fL (80-100); MEAN CORPUSCULAR HEMOGLOBIN 29.6 pg (25-34); MEAN CORPUSCULAR HGB CONC 34.5 g/dl (32-36); MEAN PLATELET VOLUME 9.4 fL (7.4-10.4); MONO % 10.6 %; NEUT % 47.9 %; NEUT ABS # 4.08 K/uL (1.4-6.5); PLATELET COUNT 225 K/uL (130-400); RED CELL DISTRIBUTION WIDTH CV 13.6 % (11.5-14.5); RED CELL DISTRIBUTION WIDTH SD 42.7 fL (36.4-46.3); WHITE BLOOD COUNT 8.52 K/uL (4.8-10.8)
[2017-07-30 20:48] VITALS: TEMP 36.9
[2017-07-30 20:53] LABS: ALBUMIN 3.5 gm/dl (3.4-5.0); ALT/SGPT 35 U/L (12-78); BLOOD UREA NITROGEN 19 mg/dl (7-18); CALCIUM 9.7 mg/dl (8.5-10.1); CARBON DIOXIDE 26 mmol/L (21-32); CREATININE 1.29 mg/dl (0.60-1.20); GLUCOSE 108 mg/dl (70-99); POTASSIUM 3.7 mmol/L (3.5-5.1); SODIUM 132 mmol/L (136-145)
[2017-07-30 20:56] LABS: INFLUENZA A PCR Neg for Influ A (NEG); INFLUENZA B PCR Neg for Influ B (NEG)
[2017-07-30 20:59] LABS: ALKALINE PHOSPHATASE 96 U/L (45-117); AST/SGOT 43 U/L (15-37)
--- NOTE | 2017-07-30 21:08 | DIAGNOSTIC IMAGING REPORT ---
CHEST 2 VIEWS ROUTINE HISTORY: cough COMPARISON: Chest 06/20/2017. FINDINGS: No pneumothorax. No pleural effusions. The heart remains mildly enlarged. Chronic interstitial thickening persists. Emphysema. Stable scarlike densities within the lung apices. No new focal lung consolidations to suggest pneumonia. IMPRESSION: No significant change compared to the prior study. No acute process. Electronically signed by: Moe Hills M.D. 07/30/2017 9:06 PM Dictated Date/Time: 07/30/2017 9:05 PM
[2017-07-30] MEDS ORDERED: BENZONATATE 100MG CAP PO ONE (21:15)
[2017-07-30] MEDS ORDERED: AZITHROMYCIN 250 MG TAB PO ONE (21:45)
[2017-07-30] MEDS ORDERED: AZIT250T PO (21:46)
[2017-07-30] MEDS ORDERED: PRED20TA2 PO (21:46)
[2017-07-30] MEDS ORDERED: GUAI100S6 PO (21:46)
[2017-07-30] MEDS ORDERED: VNTHFA/IN INH (22:43)
[2017-07-30] MEDS ORDERED: DEXT30TA7 PO (22:45)
[2017-07-30] MEDS ORDERED: ACET-1256 PO (22:45)
[2017-07-30] MEDS ORDERED: GUAIFENESIN/CODEINE 100MG/10MG 5ML UDC PO STA (22:49)
[2017-07-30 23:05] VITALS: BP 136/80; PULSE 82; O2SAT 96
== END 2017-07-30 23:05 | disposition home or self-care (01) ==
LOC: EDBD 19:22 → C.EDA 19:24
DX: J20.9 Acute bronchitis, unspecified (principal); J06.9 Acute upper respiratory infection, unspecified; J44.0 Chronic obstructive pulmonary disease with (acute) lower respiratory infection; J45.909 Unspecified asthma, uncomplicated; I10 Essential (primary) hypertension; I25.10 Atherosclerotic heart disease of native coronary artery without angina pectoris; E11.9 Type 2 diabetes mellitus without complications; E03.9 Hypothyroidism, unspecified; E78.5 Hyperlipidemia, unspecified; Z87.01 Personal history of pneumonia (recurrent); Z87.891 Personal history of nicotine dependence; Z98.51 Tubal ligation status; Z83.3 Family history of diabetes mellitus; Z82.49 Family history of ischemic heart disease and other diseases of the circulatory system; Z79.899 Other long term (current) drug therapy

== ENCOUNTER 2017-08-11 13:36 | Emergency (ER) | payer OTHER ==
[~2017-08-11] VITALS: Ht 167.6 cm; Wt 79.4 kg
[~2017-08-11 13:36] MED LIST changes: +ACET-1256 PO; +AZIT250T PO; -CHOL20007 PO; -CLON0.2T PO; +DEXT30TA7 PO; -FELO2.5T PO; -FURO-85 PO; +GUAI100S6 PO; -IPRA1AER2 INH; -IPRASOL4 INH; -LORA-741 PO; -OXYC1TAB3 PO; +PRED20TA2 PO; -RIZA10TA18 PO; +VNTHFA/IN INH
[2017-08-11 13:42] VITALS: TEMP 37.3; Ht 167.6 cm; Wt 79.4 kg
[2017-08-11] MEDS ORDERED: ALBUT/IPRATROP 3MG/0.5MG NEB 3 ML VIAL INH STA (13:55)
[2017-08-11] MEDS ORDERED: ASPIRIN 81 MG CHEW PO STA (13:55)
[2017-08-11 14:30] LABS: BASO % 0.3 %; BASO ABS # 0.03 K/uL (0-0.2); EOS ABS # 0.24 K/uL (0-0.5); HEMATOCRIT 40.8 % (37-47); HEMOGLOBIN 13.4 g/dL (12.0-16.0); IG# 0.08 K/uL (0.00-0.02); LYMPH % 23.3 %; LYMPH ABS # 2.73 K/uL (1.2-3.4); MEAN CELL VOLUME 89.7 fL (80-100); MEAN CORPUSCULAR HEMOGLOBIN 29.5 pg (25-34); MEAN CORPUSCULAR HGB CONC 32.8 g/dl (32-36); MEAN PLATELET VOLUME 9.1 fL (7.4-10.4); MONO % 8.3 %; MONO ABS # 0.97 K/uL (0.11-0.59); NEUT % 65.4 %; NEUT ABS # 7.69 K/uL (1.4-6.5); PLATELET COUNT 250 K/uL (130-400); RED CELL DISTRIBUTION WIDTH CV 14.4 % (11.5-14.5); RED CELL DISTRIBUTION WIDTH SD 46.9 fL (36.4-46.3); WHITE BLOOD COUNT 11.74 K/uL (4.8-10.8)
[2017-08-11 14:36] LABS: BLOOD UREA NITROGEN 16 mg/dl (7-18); CALCIUM 9.3 mg/dl (8.5-10.1); CARBON DIOXIDE 29 mmol/L (21-32); CREATININE 0.94 mg/dl (0.60-1.20); GLUCOSE 113 mg/dl (70-99); SODIUM 136 mmol/L (136-145)
--- NOTE | 2017-08-11 14:39 | DIAGNOSTIC IMAGING REPORT ---
CHEST 2 VIEWS ROUTINE CLINICAL HISTORY: sob wheezing COMPARISON STUDY: 07/30/2017 FINDINGS: The cardiac and mediastinal contours remain stable. There is stable interstitial thickening. There is stable biapical scars. There is minor basilar atelectasis.[ There is no failure. There is no acute parenchymal consolidation. IMPRESSION: No significant change from the prior study. No acute findings. Electronically signed by: Jay Miller M.D. 08/11/2017 2:37 PM Dictated Date/Time: 08/11/2017 2:36 PM
[2017-08-11 14:44] VITALS: O2SAT 93
[2017-08-11 15:15] LABS: INFLUENZA B ANTIGEN Neg for Influ B (NEG)
[2017-08-11] MEDS ORDERED: PRED50TA PO (16:45)
--- NOTE | 2017-08-11 16:49 | EMERGENCY ROOM VISIT NOTE ---
History Report prepared by Ramiro: Sergio Mathews Under the Supervision of: Dr. Andre Perez M.D. First contact with patient: 13:49 Chief Complaint: RESPIRATORY PROBLEMS Stated Complaint: GENERAL ILLNESS Nursing Triage Summary: Pt reports she has had a cough for 1 month, has been on atb and inhalers with little improvement. Cough is sometimes productive of thick sputum. History of COPD. Expiratory wheezes. Has mid to left sided cheat pain that worsens with movement and coughing. History of Present Illness The patient is a 66 year old female who presents to the Emergency Room by EMS with complaints of persistent generalized illness beginning a month ago. Her symptoms include cough, resolved fevers, SOB, and chest pain. She has not had a fever within the last week. The patient states that her cough is occasionally productive, and sometimes has small steaks of blood in it. No hemoptysis. Her chest pain is constant, and is described as a "tightness" similar to previous COPD exacerbations.. The patient denies recent travel, supplemental hormone use , recent surgery, history of blood clots, or recent trauma. She was recently on Prednisone. She wears supplemental oxygen at home at night. She was given one DuoNeb en route. The patient states "I used to have CHF". Source of History: patient Onset: One month ago Position: other (generalized) Quality: other (illness) Timing: other (persistent) Associated Symptoms: + fevers (resolved), + cough (occasionally productive) , + chest pain (constant, "tightness"), + SOB (worse with lying flat) Review of Systems See HPI for pertinent positives and negatives. A total of ten systems were reviewed and were otherwise negative. Past Medical & Surgical Medical Problems: (1) Angina at rest (2) Anxiety State Nos (3) Asthma (4) Benign hypertension (5) Chr Airway Obstruct Nec (6) Chronic Obstructive Asthma, Nos (7) Coron Atheroscler Nos Type Vessel, [place] Or Graft (8) Diab Alena Wo Compl, Type Ii Or Unspec Type, Uncontrolled (9) HTN (hypertension) (10) Hyperlipemia (11) Hypertensive urgency (12) Hypothyroidism (13) Hypothyroidism Nos (14) Pneumonia, Organism Nos (15) Pulmonary emphysema (16) Stage 3 Bilateral Breast Carcinoma (17) Tobacco Use Disorder (18) Urin Tract Infection Nos Surgical Problems: (1) S/P mastectomy, bilateral (2) Tubal Ligation Status Family History Diabetes mellitus FH: heart attack FHx: heart disease Hypertension Social History Smoking Status: Former Smoker Alcohol Use: none Drug Use: none Marital Status: single, Housing Status: lives alone Occupation Status: disabled Current/Historical Medications Scheduled Levothyroxine Sodium (Levothyroxine Sodium), 0.5 TAB PO DAILY Losartan Potassium (Cozaar), 100 MG PO DAILY Metoprolol Succinate (Toprol Xl), 12.5 MG PO DAILY Prednisone (Prednisone), 50 MG PO DAILY Ranitidine (Zantac), 150 MG PO QAM Sertraline (Zoloft), 100 MG PO DAILY Simvastatin (Zocor), 20 MG PO HS Spironolactone (Aldactone), 25 MG PO DAILY Scheduled PRN Acetaminophen (Tylenol), 1,000 MG PO UD PRN for Pain or Fever Albuterol Hfa (Ventolin Hfa), 1-2 PUFFS INH Q6H PRN for SOB/Wheezing Dextromethorphan-Guaifenesin (Mucinex Dm), 1 TAB PO Q12 PRN for INDIGESTION Sucralfate (Carafate), 1 GM PO ACHS PRN for Allergies Coded Allergies: Hydralazine (Verified Allergy, Unknown, joint pain, 07/30/17) pt Tetracycline (Verified Allergy, Unknown, UNKNOWN, 07/30/17) Amlodipine (Verified Adverse Reaction, Mild, Edema., 07/30/17) Physical Exam Vital Signs Date Time Temp Pulse Resp B/P (MAP) Pulse Ox O2 Delivery O2 Flow Rate FiO2 08/11/17 17:02 91 20 136/87 95 08/11/17 15:57 83 16 117/60 96 Nasal Cannula 2.0 08/11/17 15:40 86 Room Air 08/11/17 15:40 98 Nasal Cannula 2.0 08/11/17 14:44 93 Room Air 08/11/17 14:12 79 20 103/61 93 Room Air 08/11/17 13:44 93 Room Air 08/11/17 13:44 95 08/11/17 13:42 37.3 93 22 140/79 93 Room Air Physical Exam GENERAL: Awake, alert, well-appearing, in no distress HENT: Normocephalic, Atraumatic. no hemotympanum bilaterally, bautista sign negative bilaterally. Oropharynx unremarkable. EYES: Normal conjunctiva. Sclera non-icteric. PERRL bilaterally. EOMI bilaterally. NECK: Supple. No nuchal rigidity. FROM. No JVD. No C-spine tenderness. RESPIRATORY: Diffuse expiratory wheezes. CARDIAC: Regular rate, normal rhythm. Extremities warm and well perfused. Equal palpable radial pulses to the bilateral upper extremities. Equal palpable DP pulses to the bilateral lower extremities. ABDOMEN: Soft, non-distended. No tenderness to palpation. No rebound or guarding. No masses. Rovsig Negative. RECTAL: Deferred. MUSCULOSKELETAL: Chest examination reveals no tenderness. The back is symmetrical on inspection without obvious abnormality. There is no CVA tenderness to palpation. No joint edema. LOWER EXTREMITIES: Calves are equal size bilaterally and non-tender. No edema. No discoloration. NEURO: Normal sensorium. No sensory or motor deficits noted. No pronator drift. No facial droop. No dysarthria. SKIN: No rash or jaundice noted. Medical Decision & Procedures ER Provider Diagnostic Interpretation: Radiology results as stated below per my review and radiologist interpretation: CHEST 2 VIEWS ROUTINE FINDINGS: The cardiac and mediastinal contours remain stable. There is stable interstitial thickening. There is stable biapical scars. There is minor basilar atelectasis.[ There is no failure. There is no acute parenchymal consolidation. IMPRESSION: No significant change from the prior study. No acute findings. Electronically signed by: Jay Miller M.D. 08/11/2017 2:37 PM Laboratory Results 08/11/17 14:10 Red Blood Count 4.55, Mean Corpuscular Volume 89.7, Mean Corpuscular Hemoglobin 29.5, Mean Corpuscular Hemoglobin Concent 32.8, Mean Platelet Volume 9.1, Neutrophils (%) (Auto) 65.4, Lymphocytes (%) (Auto) 23.3, Monocytes (%) (Auto) 8.3, Eosinophils (%) (Auto) 2.0, Basophils (%) (Auto) 0.3, Neutrophils # (Auto) 7.69, Lymphocytes # (Auto) 2.73, Monocytes # (Auto) 0.97, Eosinophils # (Auto) 0.24, Basophils # (Auto) 0.03 08/11/17 14:10 Test 08/11/17 14:10 2/8/18 14:50 White Blood Count 11.74 K/uL (4.8-10.8) Red Blood Count 4.55 M/uL (4.2-5.4) Hemoglobin 13.4 g/dL (12.0-16.0) Hematocrit 40.8 % (37-47) Mean Corpuscular Volume 89.7 fL (80-100) Mean Corpuscular Hemoglobin 29.5 pg (25-34) Mean Corpuscular Hemoglobin Concent 32.8 g/dl (32-36) Platelet Count 250 K/uL (130-400) Mean Platelet Volume 9.1 fL (7.4-10.4) Neutrophils (%) (Auto) 65.4 % Lymphocytes (%) (Auto) 23.3 % Monocytes (%) (Auto) 8.3 % Eosinophils (%) (Auto) 2.0 % Basophils (%) (Auto) 0.3 % Neutrophils # (Auto) 7.69 K/uL (1.4-6.5) Lymphocytes # (Auto) 2.73 K/uL (1.2-3.4) Monocytes # (Auto) 0.97 K/uL (0.11-0.59) Eosinophils # (Auto) 0.24 K/uL (0-0.5) Basophils # (Auto) 0.03 K/uL (0-0.2) RDW Standard Deviation 46.9 fL (36.4-46.3) RDW Coefficient of Variation 14.4 % (11.5-14.5) Immature Granulocyte % (Auto) 0.7 % Immature Granulocyte # (Auto) 0.08 K/uL (0.00-0.02) Anion Gap 5.0 mmol/L (3-11) Est Creatinine Clear Calc Drug Dose 60.9 ml/min Estimated GFR () 72.2 Estimated GFR (Non- 62.3 BUN/Creatinine Ratio 17.4 (10-20) Calcium Level 9.3 mg/dl (8.5-10.1) Troponin I < 0.015 ng/ml (0-0.045) Pro-B-Type Natriuretic Peptide 98 pg/ml (0-900) Influenza Type A Antigen Neg for Influ A (NEG) Influenza Type B Antigen Neg for Influ B (NEG) Laboratory results reviewed by me Medications Administered Medications (Trade) Dose Ordered Sig/Hazel Route Start Time Stop Time Status Last Admin Dose Admin Aspirin (Aspirin Chew) 324 mg NOW STAT PO 08/11/17 13:55 08/11/17 13:59 DC 08/11/17 14:12 324 MG Albuterol/ Ipratropium (Duoneb) 3 ml NOW STAT INH 08/11/17 13:55 08/11/17 13:59 DC 08/11/17 14:43 3 ML Prednisone (PredniSONE TAB) 60 mg NOW STAT PO 08/11/17 13:55 08/11/17 14:00 DC 08/11/17 14:13 60 MG ECG Indication: SOB/dyspnea Rate (beats per minute): 74 Rhythm: sinus rhythm Findings: T-wave inversion (lead 3), other (MT, QRS, and QTC intervals within normal limits. ) Comparison ECG Date: Jul 30, 2017 Change: T-wave inversion is new. ED Course 1349: The patient was evaluated in room B11B. A complete history and physical exam was performed. 1355: Ordered Prednisone Tab 60 mg PO, DuoNeb 3 mL INH, Aspirin Chew 324 mg PO. 1510: The patient feels much better after her breathing treatment. She is no longer wheezing to auscultation. Post DuoNeb treatment peak flow 300. She is reporting mild throat pain, and was swabbed for strep. Influenza results pending. 1540: I was called to the bedside for low oxygen saturations. The patient was sleeping at this time. She awoke, and her oxygen saturations increased immediately. She notes that she wears supplemental oxygen at home when she sleeps. She denies any respiratory distress. 1645: The patient's vitals are stable. Her flu and strep tests were negative. Her laboratory studies were all within normal limites (include Troponin and proBNP). Patient feels better status post DuoNeb and would like to go home. Peak flows 300 status post DuoNeb, no longer wheezing. Patient will be sent home with new course of Prednisone. Will follow up with PCP. DISCHARGE - Plan of care discussed with patient and questions answered. The patient was given both verbal and printed discharge instructions. The patient verbalized understanding and ability to comply. The patient is to seek outpatient follow up as noted in the discharge instructions. The patient verbalized understanding and ability to comply. The patient is discharged in stable condition. The patient was instructed to return for worsening symptoms. Medical Decision The patient's vitals are stable. Her flu and strep tests were negative. Her laboratory studies were all within normal limites (include Troponin and proBNP) . Patient feels better status post DuoNeb and would like to go home. Peak flows 300 status post DuoNeb, no longer wheezing. Patient will be sent home with new course of Prednisone. Will follow up with PCP. DISCHARGE - Plan of care discussed with patient and questions answered. The patient was given both verbal and printed discharge instructions. The patient verbalized understanding and ability to comply. The patient is to seek outpatient follow up as noted in the discharge instructions. The patient verbalized understanding and ability to comply. The patient is discharged in stable condition. The patient was instructed to return for worsening symptoms. Medication Reconcilliation Current Medication List: was personally reviewed by me Blood Pressure Screening Patient's blood pressure: Normal blood pressure Blood pressure disposition: Did not require urgent referral Impression Primary Impression: COPD exacerbation Scribe Attestation The scribe's documentation has been prepared under my direction and personally reviewed by me in its entirety. I confirm that the note above accurately reflects all work, treatment, procedures, and medical decision making performed by me. The chart was completed utilizing [employer] Speech voice recognition software. Grammatical errors, random word insertions, pronoun errors, and incomplete sentences are an occasional consequence of this system due to software limitations, ambient noise, and hardware issues. Any formal questions or concerns about the content, text, or information contained within the body of this dictation should be directly addressed to the physician for clarification. Departure Information Dispostion Home / Self-Care Prescriptions Prednisone (Prednisone) 50 Mg Tab 50 MG PO DAILY for 4 Days, #4 TAB Prov: Andre Perez M.D. 08/11/17 Referrals Tiffanie Lugo C.R.N.P (PCP) Forms HOME CARE DOCUMENTATION FORM, IMPORTANT VISIT INFORMATION, WORK / SCHOOL INSTRUCTIONS Patient Instructions COPD Liang, [facility]
[2017-08-11 17:02] VITALS: BP 136/87; PULSE 91; O2SAT 95
== END 2017-08-11 17:02 | disposition home or self-care (01) ==
LOC: EDBD 13:36 → C.EDB 13:37
DX: J44.1 Chronic obstructive pulmonary disease with (acute) exacerbation (principal); Z99.81 Dependence on supplemental oxygen; F41.9 Anxiety disorder, unspecified; I10 Essential (primary) hypertension; I25.10 Atherosclerotic heart disease of native coronary artery without angina pectoris; E11.9 Type 2 diabetes mellitus without complications; E03.9 Hypothyroidism, unspecified; E78.5 Hyperlipidemia, unspecified; Z87.01 Personal history of pneumonia (recurrent); Z87.891 Personal history of nicotine dependence; Z85.3 Personal history of malignant neoplasm of breast; Z87.440 Personal history of urinary (tract) infections; Z83.3 Family history of diabetes mellitus; Z82.49 Family history of ischemic heart disease and other diseases of the circulatory system; Z79.899 Other long term (current) drug therapy

== ENCOUNTER → 2017-09-16 | Outpatient (CLI) | payer OTHER ==
[~2017-09-16] MED LIST changes: -AZIT250T PO; -GUAI100S6 PO; -METO25TA3 PO; +METO25TA4 PO; -PRED20TA2 PO; +RANI150T85 PO; -ZNTT/150 PO
[2017-09-16 12:55] LABS: ALBUMIN 4.2 gm/dl (3.4-5.0); ALT/SGPT 31 U/L (12-78); AST/SGOT 22 U/L (15-37); BLOOD UREA NITROGEN 18 mg/dl (7-18); CALCIUM 9.9 mg/dl (8.5-10.1); CARBON DIOXIDE 28 mmol/L (21-32); CHOLESTEROL 178 mg/dl (0-200); CREATININE 1.04 mg/dl (0.60-1.20); GLUCOSE 113 mg/dl (70-99); SODIUM 136 mmol/L (136-145)
[2017-09-16 13:05] LABS: ALKALINE PHOSPHATASE 90 U/L (45-117); LDL CHOLESTEROL CALCULATED 88 mg/dl; TOTAL PROTEIN 7.9 gm/dl (6.4-8.2)
== END | disposition home or self-care (01) ==
LOC: C.LABPVFM 10:57
PROVIDERS: ATTEND Nurse Practitioner Family
DX: I10 Essential (primary) hypertension (principal); E78.5 Hyperlipidemia, unspecified; E03.9 Hypothyroidism, unspecified; E55.9 Vitamin D deficiency, unspecified

== ENCOUNTER → 2017-10-06 | Outpatient (CLI) | payer OTHER ==
[2017-10-06 10:09] LABS: ALBUMIN 4.2 gm/dl (3.4-5.0); BLOOD UREA NITROGEN 25 mg/dl (7-18); CALCIUM 10.3 mg/dl (8.5-10.1); CARBON DIOXIDE 29 mmol/L (21-32); CREATININE 1.05 mg/dl (0.60-1.20); GLUCOSE 105 mg/dl (70-99); SODIUM 134 mmol/L (136-145)
[2017-10-06 10:10] LABS: PHOSPHORUS 3.8 mg/dl (2.5-4.9)
== END | disposition home or self-care (01) ==
LOC: C.LAB1850 08:54
PROVIDERS: ATTEND Internal Medicine Nephrology
DX: I10 Essential (primary) hypertension (principal)

== ENCOUNTER → 2017-10-27 | Outpatient (CLI) | payer OTHER ==
--- NOTE | 2017-10-28 06:48 | PAP/PSG TECHNICIAN REPORT ---
[facility] Freight Separator Polysomnogram Report Study name: None Report date: 10/28/2017 Study date: 10/27/2017 Referring Physician: Corine Guevara PA-C, PA-C Name: GEMMA LICONA Interpreting Physician: Jase Roger D.O. Date of : 1950 Freight Separator: Saloni Ren [facility]. Sex: Female Age: 67 Study Type: PSG Weight: 173 lbs Height: 67 years, Height 5' 5.5" BMI: 28.35 Medications: LEVOTHYROXINE 125 MCG, SIMVASTATIN 20 MG, LOSARTAN 100 MG, IPRATROPIUM-ALBUTEROL, SPIRONOLACTONE 25 MG, FELODIPINE 2.5 MG, FUROSEMIDE 20 MG, CLONIDINE 0.1 MG, SERTRALINE 100 MG, METOPROLOL 25 MG, VIT D3 2000 UNIT, RANITIDINE 150 MG, PROVENTIL HFA, MAGNESIUM 500 MG, ASPIRIN 81 MG, BETAMETHASONE DIPROPIONATE AUG 0.05% EX CREAM, TRAZODONE 50 MG, ARNUITY ELLIPTA 100 MCG/ACT Patient History 67 yr-old female here for a baseline study. She has a history of COPD, shortness of breath, nighttime coughing, and daytime sleepiness. Her [place] scale is 15. The test was started on room air. ETCO2 testing is included in this study. Room 3 Parameters Monitored NPSG: E1-M2, E2-M1, Fp1-M2, Fp2-M1, F3-M2, F4-M2, F4-M1, C3-M2, C4-M2, C4-M1, O1-M2, O2-M2, O2-M1, T3-M2, T4-M1, P3-M2, P4-M1, CHIN1, CHIN2, HR, EKG, Legs, PFLOW, SNOR, FLOW, CFLOW, Tidal Volume, THOR, ABDO, SpO2, PLTH, CPRESS, ETCO2 Wave, ETCO2, pH Sleep Architecture Sleep Stages Time at Lights Off 10:21:48 PM STAGES Time (min.) TST (%) Time at Lights On 5:30:48 AM Wake 31.5 -- Total Recording Time (TRT) 429.00 min. N1 38.0 10 Total Sleep Period (TSP) 415.5 min. N2 262.0 66 Total Sleep Time (TST) 397.5min. N3 39.5 10 Awake Time 31.5 min. REM 58.0 15 Wake after Sleep Onset 18.0 min. Sleep Efficiency (SE) 93 % Sleep Onset Latency (JUNIOR) 13.5 min. Number of Stage 1 Shifts None Awakenings 17 Stage Changes 104 Number of REM periods 3 REM 58.0 15 REM Latency 245.5 min. NREM 339.5 85 Body Position Analysis Supine Right Left Side Prone Vertical Total Sleep Time (min.) 316.2 108.8 0.0 108.79 0.0 0.0 Total Sleep Time (%) 73% 27% 0% 27 0% N/A% Total Sleep Time REM (min.) 9.5 48.5 0.0 None 0.0 0.0 Total Sleep Time NREM (min.) 279.2 60.3 0.0 None 0.0 0.0 Intermittent Wake (min.) 27.5 4.0 0.0 None 0.0 0.0 Total Sleep Period (%) 73% None None None None None Arousals Myoclonus (PLM) * Events Count Index Events Count Index Spontaneous 41 6 Events Awake (PLMW) 62 118.1 Respiratory 14 2.3 Events Asleep w/ Arousal (PLMA) 14 2.1 PLM 14 2 Events Asleep w/o Arousal (PLMS) 52 7.8 Snoring 11 2 Total Asleep 66 10.0 Total 78 12 Total 128 18 Respiratory Analysis * CA OA MA CH H RERA Total Count 0 2 0 0 55 2 57 Index 0.0 0.3 0.0 0 8.3 0 8.9 Mean Duration 0.0 19.0 0.0 0.00 16.8 17.9 16.9 Longest Duration 0.0 19.1 0.0 0.00 0.0 18.9 25.3 Respiratory Event Summary Total Supine ~Supine Right Left Prone REM NREM Apneas Count 2 1 1 1 N/A N/A 0 2 Index 0.3 0 1 0.6 N/A N/A 0 0 Hypopneas (4% Desat) Count 55 46 9 9 N/A N/A 7 48 Index 8.3 9.6 5 5.0 N/A N/A 7.2 8.5 Apneas & All Hypopneas Count 57 47 10 10 N/A N/A 7 50 Index 8.6 10 6 6 N/A N/A 7.2 8.8 Respiratory Events (Outsole Rounder+All Hyp+RERA) Count 57 49 10 10 N/A N/A 7 50 Index 8.9 10 6 5.5 N/A N/A 7.2 9.2 Respiratory Related Arousal Count 14 49 0 0 N/A N/A 0 15 Index 2.3 3 0 0 N/A N/A 0 3 Snoring Analysis Supine Right Left Prone REM NREM Total Snore duration 71.0 min Snores count 2,845 283 N/A N/A 177 2,951 3,128 Snore mean duration 1.4 Sec Snores index 591 156 N/A N/A 183.1 521.5 472.2 TST with snoring (%) 17.9% SpO2 Analysis Total REM NREM Awake <50% 0.0 min. 0.0 min. 0.0 min. 0.0 min. 51 - 60% 0.0 min. 0.0 min. 0.0 min. 0.0 min. 61 - 70% 0.0 min. 0.0 min. 0.0 min. 0.0 min. 71 - 80% 45.0 min. 18.2 min. 26.0 min. 0.8 min. 81 - 90% 356.8 min. 39.3 min. 292.7 min. 24.8 min. 91 - 100% 20.8 min. 0.0 min. 15.9 min. 4.9 min. Average 84 82 84 87 Minimum SpO2 73 77 73 75 Desaturation Event Index 23.1 14.5 23.5 38.1 # Desat. Events below 89% 153 14 123 16 Time(%) with Saturation below 89% 91.2 13.6 73.0 4.5 Time(min.) with Saturation below 89% 385.2 57.5 308.7 19.1 Heart Rate Analysis End Tidal CO2 Analysis Min (bpm) Max (bpm) Average (bpm) TSP (mins) % of TSP Awake 42 281 59 Above 55 mmHg 0.0 0.0 NREM 34 281 59 50-55 mmHg 0.0 0.0 REM 57 127 62 45-50 mmHg 0.0 0.0 Overall 34 281 60 40-45 mmHg 18.7 4.7 35-40 mmHg 308.5 77.6 30-35 mmHg 61.2 15.4 Average ETCO2 0.3 Supplemental O2 Values Minimum O2 level: None Value Start Time End Time Freight Separator Comments Ms. Licona slept in the right and supine positions propped up on four pillows. No cardiac arrhythmia or PLMs noted. No bruxism noted. Snoring was noted and scored as a 3 on a scale of 1 through 5. (0=no snoring, 5=snoring loud enough to be heard through a closed door or down the giron way). She did not wake up to use the restroom during the night. Ms. Licona stated that she slept about the same as usual. The final report will be interpreted and signed by a sleep physician. The completed physician report will then be placed in the patient medical record. Therapy (cm H2O) 0 TIB (min.) 429.0 TST (min.) 397.5 Sleep Onset (min.) 13.5 REM Onset From Sleep (min.) 245.5 Sleep Efficiency % 93 Wakefulness (%) 7 Wakefulness (min.) 31.5 NREM 1 (%) 10 NREM 1 (min.) 38.0 NREM 2 (%) 66 NREM 2 (min.) 262.0 NREM 3 (%) 10 NREM 3 (min.) 39.5 REM (%) 15 REM (min.) 58.0 # Arousals 78 Arousal Index 12 # Snore 3,128 Snore Index 472.2 AHI 8.6 AHI Supine 10 AHI Non-Supine 6 NREM AHI 8.8 REM AHI 7.2 RDI 8.9 # Obstructive Apnea 2 # Central Apnea 0 # Mixed Apnea 0 # Hypopneas 55 RERAs 2 Total Respiratory Events 61 Time Below SpO2 89% (min.) 366.2 Mean NREM SpO2 (%) 84 Mean REM SpO2 (%) 82 Mean Sleep SpO2 (%) 84 Min NREM SpO2 (%) 73 Min REM SpO2 (%) 77 Position Supine (min.) 316.2 Position Non-supine (min.) 108.8 LM Index Sleep 10.0 LM Index NREM 10.3 LM Index REM 8.3 Mean Heart Rate (bpm) 60 Min Heart Rate (bpm) 34
--- NOTE | 2017-11-02 23:46 | POLYSOMNOGRAPH REPORT ---
CLINICAL DATA: The patient is a 67-year-old female with a history of COPD and respiratory failure. She has complaints of daytime sleepiness. She does snore. This was an in-lab overnight diagnostic polysomnography. SLEEP ARCHITECTURE: The total sleep period was 415.5 minutes. The total sleep time was 397.5 minutes. The sleep efficiency was normal at 93%. The sleep latency was normal at 13.5 minutes. Wake after sleep onset was 18 minutes. The REM latency was prolonged to 245.5 minutes. There were 2 REM periods during the night. Sleep consisted of stage N1 10%, stage N2 66%, stage N3 10%, stage REM 15%. AROUSAL DATA: The patient had a total of 78 arousals including 41 spontaneous arousals, 14 respiratory arousals, 14 PLM arousals, and 11 snoring arousals. The arousal index was 12. PLM DATA: The patient had a total of 66 periodic limb movements of sleep for a PLM index of 10.0. There were 14 arousals, associated with limb movements for a PLM arousal index of 2.1. EKG: The underlying cardiac rhythm was normal sinus. No cardiac arrhythmia was noted. The average heart rate was 60 beats per minute. There was artifact which did not allow measurement of minimum and maximum heart rates. RESPIRATORY DATA: The patient had a total of 57 respiratory events including 2 obstructive apneas and 55 hypopneas. Hypopneas were scored according to the 4% desaturation rule. There were also 2 RERAs. The longest apnea was 19.1 seconds. The mean duration of the hypopneas was 16.8 seconds. The apnea hypopnea index was elevated at 8.6 events per hour. This would represent mild sleep apnea. OXIMETRY DATA: The average saturation for the night was 84%. The minimum saturation was 73%. The patient had a total of 385.2 minutes with saturations less than 89%. STEELSCOPE OPERATOR COMMENTS: The patient slept in the right and supine positions, propped up on 4 pillows. No cardiac arrhythmias noted. No bruxism noted. Snoring was noted and scored as a 3 on a scale of 1 through 5. The patient did not awaken to use the restroom during the night. She stated that she slept about the same as usual. IMPRESSION: Obstructive sleep apnea - mild. COMMENTS: The patient has mild sleep apnea. She carries a history of COPD. Thus, she has the so-called overlap syndrome. Her [place] sleepiness scale score was elevated at 15. This would be compatible with daytime sleepiness. Treatment would be advised. She does have significant hypoxia throughout the night. RECOMMENDATIONS: 1. It is advised that the patient be treated with nasal CPAP. This could be accomplished by a referral to the sleep lab for a CPAP titration study. Alternatively, she could be treated with auto CPAP. 2. The patient has a mild elevation of BMI at 28.35. Weight loss is advised. 3. It is suggested that the patient avoid sleeping in the supine position. During this study, she spent the majority of the night supine, but with her head propped up.
== END | disposition home or self-care (01) ==
LOC: C.NEUR 21:00
PROVIDERS: ATTEND Physician Assistant
DX: G47.33 Obstructive sleep apnea (adult) (pediatric) (principal); J44.9 Chronic obstructive pulmonary disease, unspecified

== ENCOUNTER → 2017-11-15 | Outpatient (CLI) | payer OTHER ==
[~2017-11-15] MED LIST changes: +OPTIRAY 320 IV PRN
--- NOTE | 2017-11-15 10:12 | DIAGNOSTIC IMAGING REPORT ---
CT OF THE CHEST WITH IV CONTRAST CLINICAL HISTORY: ABNORMAL CT OF CHEST R93.8 ADENOPATHY COMPARISON STUDY: 09/20/2016 TECHNIQUE: Following the IV administration of 94 mL of Optiray-320, CT of the thorax was performed from the thoracic inlet to the lung bases. Images are reviewed in the axial, sagittal, and coronal planes. IV contrast was administered without complication. A dose lowering technique was utilized adhering to the principles of ALARA. CT DOSE: 256.22 mGycm FINDINGS: Thyroid: The right lobe the thyroid appears absent. Thoracic aorta: The thoracic aorta is normal in course and caliber, noting standard 3-vessel arch anatomy. No aneurysm or dissection is seen. Atheromatous plaque is present within the descending thoracic aorta Pulmonary vasculature: There is stable mild prominence the main pulmonary artery. No central pulmonary artery filling defects are visualized. HEART: The heart remains mildly enlarged Lungs and pleural spaces: No pleural effusions are visualized. There is pulmonary emphysema. There is subpleural reticulation. There is no focal pulmonary consolidation. Mediastinum: There are mildly enlarged mediastinal lymph nodes with an 11 mm right paratracheal node. [place]: There is no evidence of pathologic hilar lymphadenopathy Axilla: There is no pathologic axillary lymphadenopathy Upper abdomen: Partially visualized upper abdominal viscera is within normal limits. Skeletal structures: There are no lytic or blastic osseous lesions. IMPRESSION: 1. Emphysema and subpleural reticulation 2. No evidence of focal pulmonary consolidation 3. Stable minimally enlarged mediastinal lymph nodes Electronically signed by: Jay Miller M.D. 11/15/2017 10:10 AM Dictated Date/Time: 11/15/2017 9:52 AM
== END | disposition home or self-care (01) ==
LOC: C.CTS 09:27
PROVIDERS: ATTEND Physician Assistant
DX: J43.9 Emphysema, unspecified (principal); R59.9 Enlarged lymph nodes, unspecified; R93.8 Abnormal findings on diagnostic imaging of other specified body structures

== ENCOUNTER → 2017-11-17 | Outpatient (CLI) | payer OTHER ==
[~2017-11-17] MED LIST changes: -OPTIRAY 320 IV PRN
[2017-11-17 12:15] LABS: BASO % 0.7 %; BASO ABS # 0.06 K/uL (0-0.2); EOS % 1.9 %; EOS ABS # 0.17 K/uL (0-0.5); HEMATOCRIT 42.3 % (37-47); HEMOGLOBIN 14.3 g/dL (12.0-16.0); IG# 0.02 K/uL (0.00-0.02); LYMPH % 31.3 %; LYMPH ABS # 2.74 K/uL (1.2-3.4); MEAN CELL VOLUME 87.2 fL (80-100); MEAN CORPUSCULAR HEMOGLOBIN 29.5 pg (25-34); MEAN CORPUSCULAR HGB CONC 33.8 g/dl (32-36); MEAN PLATELET VOLUME 9.8 fL (7.4-10.4); MONO % 8.2 %; MONO ABS # 0.72 K/uL (0.11-0.59); NEUT % 57.7 %; NEUT ABS # 5.04 K/uL (1.4-6.5); PLATELET COUNT 238 K/uL (130-400); RED CELL DISTRIBUTION WIDTH CV 13.8 % (11.5-14.5); RED CELL DISTRIBUTION WIDTH SD 43.9 fL (36.4-46.3); WHITE BLOOD COUNT 8.75 K/uL (4.8-10.8)
[2017-11-17 12:25] LABS: PTT PATIENT 29.2 SECONDS (21.0-31.0)
[2017-11-17 12:32] LABS: BLOOD UREA NITROGEN 19 mg/dl (7-18); CALCIUM 9.6 mg/dl (8.5-10.1); CARBON DIOXIDE 28 mmol/L (21-32); GLUCOSE 107 mg/dl (70-99); POTASSIUM 4.1 mmol/L (3.5-5.1); SODIUM 137 mmol/L (136-145)
== END | disposition home or self-care (01) ==
LOC: C.LAB1850 10:39
PROVIDERS: ATTEND Physician Assistant
DX: R93.8 Abnormal findings on diagnostic imaging of other specified body structures (principal); R06.02 Shortness of breath

== ENCOUNTER → 2018-01-30 | Outpatient (CLI) | payer OTHER ==
[~2018-01-30] MED LIST changes: +ASPI81TA28 PO; +CHOL2000 PO; +CLON0.1T12 PO; -DEXT30TA7 PO; +DONE5TAB26 PO; +FELO1TAB7 PO; +FURO-85 PO; +IPRA-64 INH; +MULT-506 PO; +OXGN; -SUCR1TAB29 PO; +ULT50X PO
--- NOTE | 2018-01-30 10:38 | DIAGNOSTIC IMAGING REPORT ---
CHEST 2 VIEWS ROUTINE CLINICAL HISTORY: J84.9 Interstitial lung [id number] dyspnea COMPARISON STUDY: 01/21/2018 FINDINGS: Trace pleural fluid right lung base. Stable mild chronic interstitial change. No evidence for pneumothorax. Mild stable cardiomegaly. IMPRESSION: 1. Trace pleural effusion right lung base. 2. No significant right-sided pneumothorax. 3. Mild chronic interstitial change. The above report was generated using voice recognition software. It may contain grammatical, syntax or spelling errors. Electronically signed by: Yomi Moreland M.D. 01/30/2018 10:37 AM Dictated Date/Time: 01/30/2018 10:36 AM
== END | disposition home or self-care (01) ==
LOC: C.RAD1850 10:09
PROVIDERS: ATTEND Surgery
DX: J84.9 Interstitial pulmonary disease, unspecified (principal)

== ENCOUNTER → 2018-02-10 | Outpatient (CLI) | payer OTHER ==
--- NOTE | 2018-02-10 09:32 | DIAGNOSTIC IMAGING REPORT ---
CHEST 2 VIEWS ROUTINE CLINICAL HISTORY: J84.9 dyspnea COMPARISON STUDY: 01/30/2018 FINDINGS: Small right pleural effusion. Diffuse chronic interstitial change unaltered from the prior exam. Mild chronic apical fibrosis. IMPRESSION: Small right pleural effusion similar compared to the prior study. Chronic interstitial change. No new or interval finding. The above report was generated using voice recognition software. It may contain grammatical, syntax or spelling errors. Electronically signed by: Yomi Moreland M.D. 02/10/2018 9:31 AM Dictated Date/Time: 02/10/2018 9:31 AM
[2018-02-10 09:40] LABS: BASO % 0.7 %; BASO ABS # 0.08 K/uL (0-0.2); EOS % 11.2 %; EOS ABS # 1.31 K/uL (0-0.5); HEMATOCRIT 37.8 % (37-47); HEMOGLOBIN 12.3 g/dL (12.0-16.0); IG# 0.04 K/uL (0.00-0.02); LYMPH ABS # 2.58 K/uL (1.2-3.4); MEAN CELL VOLUME 88.3 fL (80-100); MEAN CORPUSCULAR HEMOGLOBIN 28.7 pg (25-34); MEAN CORPUSCULAR HGB CONC 32.5 g/dl (32-36); MEAN PLATELET VOLUME 9.3 fL (7.4-10.4); MONO % 8.6 %; MONO ABS # 1.01 K/uL (0.11-0.59); NEUT % 57.2 %; NEUT ABS # 6.71 K/uL (1.4-6.5); PLATELET COUNT 447 K/uL (130-400); RED CELL DISTRIBUTION WIDTH CV 13.9 % (11.5-14.5); RED CELL DISTRIBUTION WIDTH SD 44.8 fL (36.4-46.3); WHITE BLOOD COUNT 11.73 K/uL (4.8-10.8)
[2018-02-10 09:56] LABS: ALBUMIN 3.3 gm/dl (3.4-5.0); ALKALINE PHOSPHATASE 114 U/L (45-117); ALT/SGPT 36 U/L (12-78); AST/SGOT 23 U/L (15-37); BLOOD UREA NITROGEN 10 mg/dl (7-18); CALCIUM 9.3 mg/dl (8.5-10.1); CARBON DIOXIDE 29 mmol/L (21-32); CREATININE 0.92 mg/dl (0.60-1.20); GLUCOSE 102 mg/dl (70-99); POTASSIUM 4.3 mmol/L (3.5-5.1); SODIUM 136 mmol/L (136-145); TOTAL PROTEIN 7.1 gm/dl (6.4-8.2)
== END | disposition home or self-care (01) ==
LOC: C.LAB1850 07:29
PROVIDERS: ATTEND Surgery
DX: Z01.818 Encounter for other preprocedural examination (principal); J84.9 Interstitial pulmonary disease, unspecified; R05 Cough; R25.2 Cramp and spasm

== ENCOUNTER 2018-09-09 12:15 | Observation (INO) ==
[2018-09-09] MEDS ORDERED: ONDANSETRON INJ 2 MG/ML 2 ML VIAL IV STA (12:52)
[2018-09-09] MEDS ORDERED: PANTOprazole 40 MG in SYRINGE 0 ML IV ONE (12:52)
[2018-09-09 13:03] LABS: Eosinophils # (auto) 0.15 K/uL (0-0.5); Eosinophils % (auto) 1.6 %; Hematocrit (blood only) 39.4 % (37-47); Hemoglobin 12.8 g/dL (12.0-16.0); Immature Granulocytes # (auto) 0.02 K/uL (0.00-0.02); Immature Granulocytes % (auto) 0.2 %; Lymphocytes # (auto) 1.71 K/uL (1.2-3.4); Lymphocytes % (auto) 18.3 %; Mean Corpuscular Hgb Conc 32.5 g/dL (32-36); Mean Corpuscular Volume 91.6 fL (80-100); Mean Platelet Volume 9.6 fL (7.4-10.4); Monocytes % (auto) 3.2 %; Neutrophils # (auto) 7.18 K/uL (1.4-6.5); Neutrophils % (auto) 76.7 %; Platelet Count 157 K/uL (130-400); RDW Coefficient of Variation 15.1 % (11.5-14.5); RDW Standard Deviation 50.3 fL (36.4-46.3); White Blood Count 9.36 K/uL (4.8-10.8)
[2018-09-09 13:16] LABS: BUN Creatinine Ratio 15.4 (10-20); Calcium 8.6 mg/dl (8.5-10.1); Creatinine Clr Calc Pharmacy 55.8 ml/min; Est GFR (African American) 63.5; Est GFR (Non-African American) 54.8; Potassium 3.6 mmol/L (3.5-5.1)
[2018-09-09 13:19] LABS: Bilirubin,Total 0.3 mg/dl (0.2-1)
[2018-09-09 13:29] LABS: INR 0.9 (0.9-1.1); Partial Thromboplastin Ratio 0.9; Partial Thromboplastin Time 23.3 Seconds (21.0-31.0); Prothrombin Time 9.5 Seconds (9.0-12.0)
[2018-09-09] MEDS ORDERED: IOVERSOL 100ml IV PRN (15:35)
--- NOTE | 2018-09-09 16:25 | CT Scan Report ---
ABDOMEN AND PELVIS CT WITH IV AND ORAL CONTRAST CT DOSE: 665.86 mGy.cm HISTORY: Generalized abdominal pain eval for colitis TECHNIQUE: Multiaxial CT images of the abdomen and pelvis were performed following the use of intrave nous and oral contrast. A dose lowering technique was utilized adhering to the principles of ALARA. COMPARISON STUDY: Abdomen and pelvis CT 05/03/2018. FINDINGS: Suture material again noted within the base of the right lower lobe. Mild interstitial thic kening at the lung bases is likely chronic. This remains unchanged. No pneumoperitoneum. No pneumatos is. No suspicious lytic or blastic osseous lesions. Old left 10th rib fracture. The liver, gallbladde r, pancreas, spleen, and adrenal glands are unremarkable. A few subcentimeter bilateral renal hypoden se lesions are too small to characterize but favor cysts. No hydronephrosis. No retroperitoneal lymph adenopathy. The bladder is now well-distended and therefore not well evaluated. The uterus and bilate ral adnexa are unremarkable. No pelvic free fluid. No bowel wall thickening or obstruction. Normal ap pendix. IMPRESSION: 1. No bowel wall thickening or obstruction. 2. Normal appendix. 3. No hydronephrosis. Electronically signed by: Moe Hills M.D. 09/09/2018 4:23 PM
[2018-09-09] MEDS ORDERED: GI COCKTAIL ED USE PO ONE (16:42)
[2018-09-09 16:46] LABS: Hemoglobin 11.6 g/dL (12.0-16.0)
--- NOTE | 2018-09-09 18:41 | History & Physical Report ---
Date of Service September 09, 2018 Assessment & Plan (1) Upper GI bleed: Melena noted today only Hb initially stable on presentation, however dropped on repeat Heme neg in ED on rectal exam Stool hemoccult pending collection Improving on protonix and GI cocktail, will continue Repeat H/H later tonight and again in AM Has seen [facility] in the past for c-scope and EGD if further testing needed Will continue home meds for now--this will need addressed if there is further drop in Hb or stool is + Holding aspirin 81mg (preventive use only) cdiff pending although denies diarrhea NPO with IVF (2) Anxiety and depression: continue home meds (3) Hypothyroid: continue home meds (4) Hyperlipidemia: continue home meds (5) History of breast cancer: s/p b/l mastectomy Has hx of axillary lymphadenopathy (6) Sinusitis: recently finished course of augmentin Monitor cdiff pending (7) ILD (interstitial lung disease): recent admission for hypoxia related to ILD and COPD Stable now Continue current home care (8) HTN (hypertension): continue home meds (9) Mild cognitive impairment: Answers all questions clearly and in detail Uncertain what this impairment consists of, but appears able to discuss her health issues and concerns appropriately (10) Restless legs syndrome: continue home meds (11) DVT prophylaxis: SCDs given above History of Present Illness Primary Care Provider: Salome Pizano MD 67 y/o F c/o rectal bleeding. Pt states she had an episode of dark, tarry stools early this AM. She frequently has bright red blood on toilet tissue related to her hemorrhoids, but black stools are not usual for her. She states she has not really felt well since her recent d/c on 08/28. She has had ongoing lower abd pain since about 2 days after going home and this was worse today. She also noted mucous per rectum, but this was occurring even prior to her recent admission. Pt finished her course of abx. She did not have diarrhea with her abx use. She generally has abd pain, but this is more intense than usual. Pt states she has hx of c-scope and EGD about 3-4 yrs ago. She does not remember the name of the GI physician, but states these were done at [facility]. She states she was found to have polyps that were benign on c-scope and her EGD showed "inflammation everywhere". She has not had need for further f/u. Pt was a recent d/c on 08/28 for COPD and ILD exacerbations. She was also found to have a sinusitis and finished a 10 day course of augmentin. Pt states her breathing has not been an issue since d/c. Pt denies fever, SOB, chest pain, n/v/c/d, LE pain or swelling. Pt states she has a lot of pain in her rectum and that she had known hemorrhoids. Her pain is increased s/p recent d/c. No issues with urination. Pt received protonix and GI cocktail in the ED. She is still having lower abd pain, but it is improved. Allergies Allergy/AdvReac Type Severity Reaction Status Date / Time hydralazine Allergy Intermediate joint pain Verified 09/09/18 13:42 tetracycline Allergy Mild RASH Verified 09/09/18 13:42 amlodipine AdvReac Mild Edema. Verified 09/09/18 13:42 Home Medications Home Medications Medication Instructions Recorded Confirmed Type Esbriet 534 mg PO TIDM 08/21/18 09/09/18 History aspirin [Aspir-81] 81 mg PO DAILY 08/21/18 09/09/18 History betamethasone dipropionate 1 applic TOPICAL DAILY PRN 08/21/18 09/09/18 History cholecalciferol (vitamin D3) 2,000 unit PO DAILY 08/21/18 09/09/18 History [Vitamin D3] clonidine HCl 0.1 mg PO DIRECTED PRN 08/21/18 09/09/18 History donepezil 5 mg PO HS 08/21/18 09/09/18 History felodipine 5 mg PO QAM 08/21/18 09/09/18 History furosemide [Lasix] 20 mg PO QAM 08/21/18 09/09/18 History levothyroxine 62.5 mcg PO QAM 08/21/18 09/09/18 History losartan 100 mg PO QAM 08/21/18 09/09/18 History metoprolol succinate 25 mg PO QAM 08/21/18 09/09/18 History mupirocin 1 applic TOPICAL BID PRN 08/21/18 09/09/18 History ranitidine HCl [Zantac] 150 mg PO BID 08/21/18 09/09/18 History sertraline 100 mg PO QAM 08/21/18 09/09/18 History simvastatin 20 mg PO HS 08/21/18 09/09/18 History albuterol sulfate 2 inha INH Q4 #18 gm 08/28/18 09/09/18 Rx hydrocodone-homatropine [Hydromet] 5 ml PO Q6H PRN #473 ml 08/28/18 09/09/18 Rx ipratropium-albuterol 3 ml INHALATION Q4 PRN #90 ml 08/28/18 09/09/18 Rx pramipexole 0.25 mg PO HS #30 tab 08/28/18 09/09/18 Rx sodium chloride [Saline Mist] 2 sprays NA Q1H PRN #1 btl 08/28/18 09/09/18 Rx trazodone 50 mg PO HS PRN #30 tab 08/28/18 09/09/18 Rx fexofenadine 60 mg PO BID PRN 09/09/18 09/09/18 History fluticasone 2 sprays NA DAILY PRN 09/09/18 09/09/18 History Past Med/Surg History Medical History HTN (hypertension) (Chronic) COPD exacerbation Hyperlipidemia Pneumonia Surgical History S/P mastectomy Social History Preferred Language: Yemeni Beliefs That Will Affect Care: None marital status: Current Living Situation: Alone Feels Safe at Home: Yes Smoking Status: Former smoker Hx Alcohol Use: No Hx Substance Use: No Review of Systems Pertinent positives and negatives reviewed in HPI--all others negative Physical Exam Vital Signs (Past 24 Hours): Last Vital Signs Temp 37.2 C 09/09/18 12:34 Pulse 68 09/09/18 15:55 Resp 15 09/09/18 15:55 BP 101/56 L 09/09/18 15:55 Pulse Ox 99 09/09/18 15:55 Constitutional: WD/WN, vitals as above Eyes: normal visual tafoya by confrontation and + anicteric sclerae Neck: normal visual inspection and trachea midline Respiratory: normal respiratory effort, lungs clear to auscultation Cardiovascular: Rate/Rhythm: regular rate and regular rhythm Gastrointestinal (Abdomen): Inspection/Auscultation: abdomen not distended Percussion/Palpation: + abdomen tender (diffuse) and abdomen soft Musculoskeletal: Head/Neck/Chest: normocephalic and head atraumatic negative for edema, peripheral pulses intact Skin: no rashes, warm and dry Neurologic: awake; not confused Speech / Cognition: normal speech Psychiatric: A+Ox3, euthymic affect Results & Data Diagnostic Findings CXR: neg for acute CT AP: neg for acute Code Status & VTE Plan Code Status Full cardiac code, DNI VTE Prophylaxis Plan VTE Prophylaxis will be ordered: Yes (1) Hyperlipidemia Hyperlipidemia type: mixed hyperlipidemia Qualified Code(s): E78.2 - Mixed hyperlipidemia (2) Hypothyroid Hypothyroidism type: acquired Qualified Code(s): E03.9 - Hypothyroidism, unspecified (3) Sinusitis Chronicity: acute Recurrence: not specified as recurrent Sinusitis location: maxillary Qualified Code(s): J01.00 - Acute maxillary sinusitis, unspecified (4) HTN (hypertension) Hypertension type: essential hypertension Qualified Code(s): I10 - Essential (primary) hypertension
--- NOTE | 2018-09-09 18:52 | Emergency Department Note ---
Entered by Ivon Roberts acting as a scribe for Bryson Robertson MD History of Present Illness General Chief complaint: Rectal Bleed Stated complaint: dark stool/ eval. Source: patient Limitations: no limitations History of Present Illness Provider complaint: rectal bleed Onset (ago): hour(s) 8 Location: abdomen Pain Consistency: + colicky Quality: + other (Cramping) Exacerbated By: + none Associated symptoms: + other (+stomach pain, +dirrhea ) The patient is a 67 year old female who presents to the Emergency Room with complaints of a rectal bleed that began 8 hours prior to arrival. The patient denies any bright red stool and describes her stool as "black water". The patient states that she had a normal bowel movement the day prior to arrival. The patient states that she has lower abdominal cramping pain as well as some epigastric pain and diarrhea . She does state that she is on PPIs as well as H2 blockers for chronic stomach issues. The patient states that she is on Aspirin but denies being on any blood thinners. Home Medications Home Medications Medication Instructions Recorded Confirmed Type Esbriet 534 mg PO TIDM 08/21/18 09/09/18 History aspirin [Aspir-81] 81 mg PO DAILY 08/21/18 09/09/18 History betamethasone dipropionate 1 applic TOPICAL DAILY PRN 08/21/18 09/09/18 History cholecalciferol (vitamin D3) 2,000 unit PO DAILY 08/21/18 09/09/18 History [Vitamin D3] clonidine HCl 0.1 mg PO DIRECTED PRN 08/21/18 09/09/18 History donepezil 5 mg PO HS 08/21/18 09/09/18 History felodipine 5 mg PO QAM 08/21/18 09/09/18 History furosemide [Lasix] 20 mg PO QAM 08/21/18 09/09/18 History levothyroxine 62.5 mcg PO QAM 08/21/18 09/09/18 History losartan 100 mg PO QAM 08/21/18 09/09/18 History metoprolol succinate 25 mg PO QAM 08/21/18 09/09/18 History mupirocin 1 applic TOPICAL BID PRN 08/21/18 09/09/18 History ranitidine HCl [Zantac] 150 mg PO BID 08/21/18 09/09/18 History sertraline 100 mg PO QAM 08/21/18 09/09/18 History simvastatin 20 mg PO HS 08/21/18 09/09/18 History albuterol sulfate 2 inha INH Q4 #18 gm 08/28/18 09/09/18 Rx hydrocodone-homatropine [Hydromet] 5 ml PO Q6H PRN #473 ml 08/28/18 09/09/18 Rx ipratropium-albuterol 3 ml INHALATION Q4 PRN #90 ml 08/28/18 09/09/18 Rx pramipexole 0.25 mg PO HS #30 tab 08/28/18 09/09/18 Rx sodium chloride [Saline Mist] 2 sprays NA Q1H PRN #1 btl 08/28/18 09/09/18 Rx trazodone 50 mg PO HS PRN #30 tab 08/28/18 09/09/18 Rx fexofenadine 60 mg PO BID PRN 09/09/18 09/09/18 History fluticasone 2 sprays NA DAILY PRN 09/09/18 09/09/18 History Allergies Allergy/AdvReac Type Severity Reaction Status Date / Time hydralazine Allergy Intermediate joint pain Verified 09/09/18 13:42 tetracycline Allergy Mild RASH Verified 09/09/18 13:42 amlodipine AdvReac Mild Edema. Verified 09/09/18 13:42 Past Med/Surg History Medical History HTN (hypertension) (Chronic) COPD exacerbation Hyperlipidemia Pneumonia Surgical History S/P mastectomy Family History Sister Heart attack Sister CVA (cerebral vascular accident) Other No pertinent family history Social History Preferred Language: Irish Beliefs That Will Affect Care: None marital status: Current Living Situation: Alone Feels Safe at Home: Yes Smoking Status: Former smoker Hx Alcohol Use: No Hx Substance Use: No Review of Systems See HPI for pertinent positives & negatives. and A total of 10 systems reviewed and were otherwise negative Physical Exam Vital Signs Vital Signs - 24 hr 09/09/18 12:34 09/09/18 13:04 09/09/18 13:05 Temperature 37.2 C Temperature Source Oral Sepsis Recent Fever Within 48 Hours No Sepsis Action Taken by Nursing No Action Required Pulse Rate 91 H Pulse Rate [Apical] Pulse Rate from SpO2 Sensor Pulse Rhythm Regular Pulse Strength Normal Respiratory Rate 20 Respiratory Effort / Characteristics Non-Labored Spontaneous Respiratory Depth Normal Respiratory Pattern Regular Blood Pressure 160/88 H Blood Pressure [Left Arm] Blood Pressure Mean 112 Blood Pressure Mean [Left Arm] Blood Pressure Position Sitting Pulse Oximetry 95 98 97 Oxygen Delivery Method Room Air Nasal Cannula Nasal Cannula Oxygen Flow Rate 2 2 09/09/18 13:08 09/09/18 15:55 Temperature Temperature Source Sepsis Recent Fever Within 48 Hours Sepsis Action Taken by Nursing Pulse Rate 68 Pulse Rate [Apical] 81 Pulse Rate from SpO2 Sensor 69 Pulse Rhythm Pulse Strength Respiratory Rate 20 15 Respiratory Effort / Characteristics Respiratory Depth Normal Respiratory Pattern Blood Pressure 101/56 L Blood Pressure [Left Arm] 95/60 L Blood Pressure Mean 71 Blood Pressure Mean [Left Arm] 71 Blood Pressure Position Pulse Oximetry 98 99 Oxygen Delivery Method Nasal Cannula Room Air Oxygen Flow Rate 2 Constitutional: Vital signs reviewed. Eyes: Pupils are equal round reactive to light. Conjunctiva are noninjected. ENT: Pharynx is clear without erythema or exudate. Mucous membranes are moist. Neck supple without meningeal signs. Respiratory: Clear to auscultation bilaterally. Breath sounds are equal bilaterally. Cardiovascular: Regular rate and rhythm. No rubs or gallops. GI: Soft, nondistended. Mild lower abdominal tenderness. Bowel sounds are present. Musculoskeletal: No peripheral edema. No lower extremity tenderness. Integumentary: No cyanosis. Neurological: The patient is awake and alert. No focal deficits. Psychiatric: Normal affect. Rectal: Guaiac-negative mucus. No visible stool. No blood. Course 1245: Past medical records reviewed. The patient was evaluated in room C2B, and a complete history and physical examination were performed. 1250: I performed a rectal exam on the patient. The results were guaiac negative mucus no stool, non-bleeding external hemorrhoid. 1407: I checked on the patient and her blood pressure is 95/60 and she states that this is not unusual for her because she just took her clonidine. The patient states that she accidently went to the bathroom and couldn't give us a stool sample. 1610: I checked on the patient and updated her on her results. The patient states that she has a burning pain in her upper abdomen. We are still waiting on the patient's second h&h and a stool sample. 1702: I checked on the patient and she states that her stomach pain is feeling better. I discussed the patient's drop in hemoglobin with her and she is agreeable to admission. 1706: I discussed the patient's case [facility] who will evaluate the patient for further hospitalization. Consultations Consultation #1: [facility] Time: 17:06 Administered Medications Ioversol (Optiray 320 100ml) 94 ml IV ONCE PRN PRN Reason: Interaction Checking Stop: 09/13/18 15:34 Last Admin: 09/09/18 15:36 Dose: 94 ml Documented by: [id number] Discontinued Medications Al Hydrox/Mg Hydrox/Simethicone () 1 dose PO ONE ONE Stop: 09/09/18 16:43 Last Admin: 09/09/18 16:52 Dose: 1 dose Documented by: [id number] Pantoprazole Sodium 40 mg/ (Syringe) 10 mls @ 5 mls/min IV NOW ONE Stop: 09/09/18 12:53 Last Admin: 09/09/18 13:06 Dose: 5 mls/min Documented by: [id number] Ondansetron HCl (Zofran) 4 mg IV ONE STA Stop: 09/09/18 12:53 Last Admin: 09/09/18 13:03 Dose: 4 mg Documented by: [id number] Medical Decision Making Differential Diagnosis Differentials include clostridium difficile, colitis, peptic ulcer disease, GI bleed, and anemia. Medical Records Attestation: I reviewed the patient's medical records. Home Medications Current Medication List: was personally reviewed by me Laboratory Data Attestation: I reviewed the patient's lab results. Result diagrams: 09/09/18 16:35 09/09/18 12:25 Lab Results 09/09/18 09/09/18 09/09/18 Range/Units 12:25 12:25 12:25 WBC 9.36 (4.8-10.8) K/uL RBC 4.30 (4.2-5.4) M/uL Hgb 12.8 (12.0-16.0) g/dL Hct 39.4 (37-47) % MCV 91.6 (80-100) fL MCH 29.8 (25-34) pg MCHC 32.5 (32-36) g/dL RDW Std Deviation 50.3 H (36.4-46.3) fL RDW Coeff of Karel 15.1 H (11.5-14.5) % Plt Count 157 (130-400) K/uL MPV 9.6 (7.4-10.4) fL Immature Gran % (Auto) 0.2 % Neut % (Auto) 76.7 % Lymph % (Auto) 18.3 % [place] % (Auto) 3.2 % Eos % (Auto) 1.6 % Baso % (Auto) 0.0 % Immature Gran # (Auto) 0.02 (0.00-0.02) K/uL Neut # (Auto) 7.18 H (1.4-6.5) K/uL Lymph # (Auto) 1.71 (1.2-3.4) K/uL [place] # (Auto) 0.30 (0.11-0.59) K/uL Eos # (Auto) 0.15 (0-0.5) K/uL Baso # (Auto) 0.00 (0-0.2) K/uL PT 9.5 (9.0-12.0) Seconds INR 0.9 (0.9-1.1) APTT 23.3 (21.0-31.0) Seconds PTT Ratio 0.9 Sodium 137 (136-145) mmol/L Potassium 3.6 (3.5-5.1) mmol/L Chloride 104 (98-107) mmol/L Carbon Dioxide 26 (21-32) mmol/L Anion Gap 7.0 (3-11) BUN 16 (7-18) mg/dl Creatinine 1.04 (0.6-1.2) mg/dl Est Cr Clr Drug Dosing 55.8 ml/min Est GFR ( Amer) 63.5 Est GFR (Non-Af Amer) 54.8 BUN/Creatinine Ratio 15.4 (10-20) Glucose 148 H (70-99) mg/dl Calcium 8.6 (8.5-10.1) mg/dl Total Bilirubin 0.3 (0.2-1) mg/dl AST 16 (15-37) U/L ALT 35 (12-78) U/L Alkaline Phosphatase 90 (45-117) U/L Total Protein 6.0 L (6.4-8.2) gm/dl Albumin 3.0 L (3.4-5.0) gm/dl Globulin 3.0 (2.5-4.0) gm/dl Albumin/Globulin Ratio 1.0 (0.9-2) 09/09/18 Range/Units 16:35 WBC (4.8-10.8) K/uL RBC (4.2-5.4) M/uL Hgb 11.6 L (12.0-16.0) g/dL Hct 36.0 L (37-47) % MCV (80-100) fL MCH (25-34) pg MCHC (32-36) g/dL RDW Std Deviation (36.4-46.3) fL RDW Coeff of Karel (11.5-14.5) % Plt Count (130-400) K/uL MPV (7.4-10.4) fL Immature Gran % (Auto) % Neut % (Auto) % Lymph % (Auto) % [place] % (Auto) % Eos % (Auto) % Baso % (Auto) % Immature Gran # (Auto) (0.00-0.02) K/uL Neut # (Auto) (1.4-6.5) K/uL Lymph # (Auto) (1.2-3.4) K/uL [place] # (Auto) (0.11-0.59) K/uL Eos # (Auto) (0-0.5) K/uL Baso # (Auto) (0-0.2) K/uL PT (9.0-12.0) Seconds INR (0.9-1.1) APTT (21.0-31.0) Seconds PTT Ratio Sodium (136-145) mmol/L Potassium (3.5-5.1) mmol/L Chloride (98-107) mmol/L Carbon Dioxide (21-32) mmol/L Anion Gap (3-11) BUN (7-18) mg/dl Creatinine (0.6-1.2) mg/dl Est Cr Clr Drug Dosing ml/min Est GFR ( Amer) Est GFR (Non-Af Amer) BUN/Creatinine Ratio (10-20) Glucose (70-99) mg/dl Calcium (8.5-10.1) mg/dl Total Bilirubin (0.2-1) mg/dl AST (15-37) U/L ALT (12-78) U/L Alkaline Phosphatase (45-117) U/L Total Protein (6.4-8.2) gm/dl Albumin (3.4-5.0) gm/dl Globulin (2.5-4.0) gm/dl Albumin/Globulin Ratio (0.9-2) Imaging Data Radiologist's Impression: Radiology results as stated below per my review and the radiologist's interpretation: ABDOMEN AND PELVIS CT WITH IV AND ORAL CONTRAST CT DOSE: 665.86 mGy.cm HISTORY: Generalized abdominal pain eval for colitis TECHNIQUE: Multiaxial CT images of the abdomen and pelvis were performed following the use of intravenous and oral contrast. A dose lowering technique was utilized adhering to the principles of ALARA. COMPARISON STUDY: Abdomen and pelvis CT 05/03/2018. FINDINGS: Suture material again noted within the base of the right lower lobe. Mild interstitial thickening at the lung bases is likely chronic. This remains unchanged. No pneumoperitoneum. No pneumatosis. No suspicious lytic or blastic osseous lesions. Old left 10th rib fracture. The liver, gallbladder, pancreas, spleen, and adrenal glands are unremarkable. A few subcentimeter bilateral renal hypodense lesions are too small to characterize but favor cysts. No hydronephrosis. No retroperitoneal lymphadenopathy. The bladder is now well-dis tended and therefore not well evaluated. The uterus and bilateral adnexa are unremarkable. No pelvic free fluid. No bowel wall thickening or obstruction. Normal appendix. IMPRESSION: 1. No bowel wall thickening or obstruction. 2. Normal appendix. 3. No hydronephrosis. Electronically signed by: Moe Hills M.D. 09/09/2018 4:23 PM ECG Data Attestation: I personally reviewed and interpreted this ECG as follows: Indication: weakness Rate (beats per minute): 81 Rhythm: normal sinus Findings: no PVC and no ST elevation Blood Pressure Blood Pressure Findings: Elevated blood pressure Blood Pressure Disposition: elevated BP felt to be situational MDM Narrative I did perform a limited focused review of portions of the patient's old chart on the electronic medical record. The patient was admitted in August for COPD exacerbation. I did evaluate the patient as noted above. The patient is presenting with melena and diarrhea with lower abdominal pain. IV access was established. The patient was placed on a continuous night monitor. I did treat her with Zofran IV. I did order and personally review the patient's 12-lead EKG as described above. She has no signs of ischemia. I did order and review the patient's blood work as noted in the electronic medical record. Initial hemoglobin is normal. I did order a CT of the abdomen and pelvis. I did review the images myself as well as the radiology report as described above. She has no evidence of acute process. I did order a C. difficile test which we were unable to obtain as she could not give us a stool sample. She did have a bowel movement but accidentally went in the toilet. Because of her history of melanotic stools I did repeat a hemoglobin which dropped to 11.6 from 12.8. She also developed epigastric pain and was given a GI cocktail after which her pain was significantly improved. I did recommend hospitalization for an upper GI bleed and further workup. I did discuss the case with the hospitalist and onsite case manager. Impression & Plan Upper GI bleed Discharge Plan Visit Data Chief Complaint: Rectal Bleed Stated Complaint: dark stool/ eval. ED Provider: Bryson Robertson Discharge Problem: Upper GI bleed Patient Disposition: Being Evaluated by Hospitalist Forms Stand Alone Forms: My [facility] Prescriptions Prescriptions: No Action clonidine HCl 0.1 mg Tablet 0.1 mg PO DIRECTED PRN (Reason: ELEVATED B/P) RF: 0 donepezil 5 mg Tablet 5 mg PO HS RF: 0 felodipine 5 mg Tablet Extended Release 24 Hr 5 mg PO QAM RF: 0 sertraline 100 mg Tablet 100 mg PO QAM RF: 0 aspirin [Aspir-81] 81 mg Tablet,Delayed Release (Dr/Ec) 81 mg PO DAILY RF: 0 simvastatin 20 mg Tablet 20 mg PO HS RF: 0 levothyroxine 125 mcg Tablet 62.5 mcg PO QAM RF: 0 ranitidine HCl [Zantac] 150 mg Tablet 150 mg PO BID RF: 0 betamethasone dipropionate 0.05 % Cream 1 applic TOPICAL DAILY PRN (Reason: Skin Irritation) RF: 0 mupirocin 2 % Ointment 1 applic TOPICAL BID PRN (Reason: sores) RF: 0 furosemide [Lasix] 20 mg Tablet 20 mg PO QAM RF: 0 metoprolol succinate 25 mg Tablet Extended Release 24 Hr 25 mg PO QAM RF: 0 losartan 100 mg Tablet 100 mg PO QAM RF: 0 cholecalciferol (vitamin D3) [Vitamin D3] 2,000 unit Capsule 2,000 unit PO DAILY RF: 0 Esbriet 267 mg Capsule 534 mg PO TIDM RF: 0 pramipexole 0.25 mg Tablet 0.25 mg PO HS Qty: 30 RF: 0 trazodone 50 mg Tablet 50 mg PO HS PRN (Reason: Insomnia) Qty: 30 RF: 0 sodium chloride [Saline Mist] 0.65 % Aerosol,[place] 2 sprays NA Q1H PRN (Reason: nasal congestion) Qty: 1 RF: 0 hydrocodone-homatropine [Hydromet] 5-1.5 mg/5 mL Syrup 5 ml PO Q6H PRN (Reason: cough) Qty: 473 RF: 0 albuterol sulfate 90 mcg/actuation HFA aerosol inhaler 2 inha INH Q4 Qty: 18 RF: 0 ipratropium-albuterol 0.5 mg-3 mg(2.5 mg base)/3 mL Solution For Nebulization 3 ml INHALATION Q4 PRN (Reason: Shortness Of Breath Or Wheezing) Qty: 90 RF: 0 fexofenadine 60 mg tablet 60 mg PO BID PRN (Reason: Allergic Symptoms) RF: 0 fluticasone 50 mcg/actuation spray,suspension 2 sprays NA DAILY PRN (Reason: Congestion) RF: 0 Referrals Referrals: Salome Pizano MD [Primary Care Provider] - The scribe's documentation has been prepared under my direction and personally reviewed by me in its entirety. I confirm that the note above accurately reflects all work, treatment, procedures, and medical decision making performed by me.
[2018-09-09] MEDS ORDERED: ONDANSETRON INJ 2 MG/ML 2 ML VIAL IV PRN (20:42)
[2018-09-09] MEDS ORDERED: HYDROCODONE/HOMATROPINE SYRUP 5MG/1.5MG 5ML UDP PO PRN (20:42)
[2018-09-09] MEDS ORDERED: ALBUT/IPRATROP 3MG/0.5MG NEB 3 ML VIAL INH PRN (20:42)
[2018-09-09] MEDS ORDERED: FLUTICASONE PROPIONATE NA SPR 16 GM BTL PRN (20:42)
[2018-09-09] MEDS ORDERED: SODIUM CHLORIDE 0.65% NA SOLN 45 ML (OCEAN) PRN (20:42)
[2018-09-09] MEDS ORDERED: cloNIDine HCl 0.1 MG TAB PO PRN (20:42)
[2018-09-09] MEDS ORDERED: BETAMETHASONE DIP AUG (DIPROLENE) 0.05% CR 15 GM TUBE EXT PRN (20:42)
[2018-09-09] MEDS ORDERED: MAGNESIUM HYDROXIDE SUSP 30 ML UDC PO PRN (20:42)
[2018-09-09] MEDS ORDERED: MUPIROCIN 2% OINT 22 GM TUBE TOP PRN (20:42)
[2018-09-09] MEDS ORDERED: FEXOFENADINE 60 MG TAB PO PRN (20:42)
[2018-09-09 21:13] LABS: Hematocrit (blood only) 40.2 % (37-47); Hemoglobin 12.9 g/dL (12.0-16.0)
[2018-09-09] MEDS: PANTOprazole 40 MG in SYRINGE 0 ML IV SCH (21:25)
[2018-09-09] MEDS: SIMVASTATIN 20 MG TAB PO SCH (21:29)
[2018-09-09] MEDS: POTASSIUM CHLORIDE 10 MEQ in D5W AND NSS 1,000 ML IV SCH (21:29)
[2018-09-09] MEDS: DONEPEZIL HCL 5 MG TAB PO SCH (21:30)
[2018-09-09] MEDS: PRAMIPEXOLE DIHYDROCHLO 0.25 MG TAB PO SCH (21:30)
[2018-09-09] MEDS: TRAZODONE HCL 50 MG TAB PO PRN (21:30)
[2018-09-09] MEDS: ALBUTEROL HFA 8 GM INHALER INH SCH (21:45)
[2018-09-09] MEDS: ALUMINUM/MAGNESIUM SUSP 72 ML, LIDOCAINE HCL VISCOUS 2% 24 ML, BARCODE IDENTIFIER 1 EA PO PRN ×2 (21:59→22:04)
[2018-09-10] MEDS: ALBUTEROL HFA 8 GM INHALER INH SCH ×6 (00:20→20:42)
[2018-09-10] MEDS: ACETAMINOPHEN 325 MG TAB PO PRN ×2 (04:51→12:53)
[2018-09-10] MEDS: LEVOTHYROXINE SODIUM 125 MCG TABLET PO SCH (06:08)
[2018-09-10 07:22] LABS: Basophils # (auto) 0.01 K/uL (0-0.2); Basophils % (auto) 0.2 %; Eosinophils # (auto) 0.12 K/uL (0-0.5); Eosinophils % (auto) 1.9 %; Hematocrit (blood only) 35.5 % (37-47); Hemoglobin 11.3 g/dL (12.0-16.0); Immature Granulocytes # (auto) 0.01 K/uL (0.00-0.02); Immature Granulocytes % (auto) 0.2 %; Lymphocytes # (auto) 1.77 K/uL (1.2-3.4); Lymphocytes % (auto) 28.3 %; Mean Corpuscular Hgb Conc 31.8 g/dL (32-36); Monocytes # (auto) 0.42 K/uL (0.11-0.59); Monocytes % (auto) 6.7 %; Neutrophils # (auto) 3.93 K/uL (1.4-6.5); Neutrophils % (auto) 62.7 %; Platelet Count 131 K/uL (130-400); RDW Coefficient of Variation 15.3 % (11.5-14.5); Red Blood Count 3.86 M/uL (4.2-5.4); White Blood Count 6.26 K/uL (4.8-10.8)
[2018-09-10 08:13] LABS: BUN Creatinine Ratio 15.8 (10-20); Calcium 7.9 mg/dl (8.5-10.1); Creatinine Clr Calc Pharmacy 77.5 ml/min; Est GFR (African American) 95.8; Est GFR (Non-African American) 82.7; Potassium 4.1 mmol/L (3.5-5.1)
[2018-09-10] MEDS: PANTOprazole 40 MG in SYRINGE 0 ML IV SCH ×2 (08:30→20:43)
[2018-09-10] MEDS: CHOLECALCIFEROL 1,000 UNITS TAB PO SCH (08:30)
[2018-09-10] MEDS: FELODIPINE 5 MG TABCR PO SCH (08:30)
[2018-09-10] MEDS: FUROSEMIDE 20 MG TAB PO SCH (08:31)
[2018-09-10] MEDS: METOPROLOL SUCC 25MG EXT REL TAB PO SCH (08:31)
[2018-09-10] MEDS: LOSARTAN POTASSIUM 50 MG TAB PO SCH (08:31)
[2018-09-10] MEDS: SERTRALINE HCL 100 MG TABLET PO SCH (08:31)
[2018-09-10] MEDS: POTASSIUM CHLORIDE 10 MEQ in D5W AND NSS 1,000 ML IV SCH ×2 (09:07→19:27)
[2018-09-10] MEDS: ALUMINUM/MAGNESIUM SUSP 72 ML, LIDOCAINE HCL VISCOUS 2% 24 ML, BARCODE IDENTIFIER 1 EA PO PRN ×2 (10:02→15:07)
[2018-09-10 12:33] LABS: Hematocrit (blood only) 36.2 % (37-47); Hemoglobin 11.8 g/dL (12.0-16.0)
[2018-09-10] MEDS: SUCRALFATE 1 GM/10 ML UDC PO SCH ×3 (12:51→20:42)
--- NOTE | 2018-09-10 14:02 | Gastroenterology Progress Note ---
Date of Service September 10, 2018 67 yo female with ILD on home O2; also with chronic abd pain last EGD 2016 showing mild esophagitis chronically on PPI, s/p recent admit for COPD exac on steroids, abx now reports loose stool x 2-3 days and dark liquid stool overnight. She was admitted with dx possible UGIB. Her BP is stable, BUN normal, hgb not sig changed. CT on admit unremarkable. PE: appears comfortable, NAD HEENT: mild pallor, but moist Abd: soft; she reports mild diffuse tenderness with palpation throughout the abdomen; she reports that this is unchanged from baseline Labs reviewed A/P: ? UGIB - Pt likely has acid-peptic disease, although no clinical indicators for significant UGIB. Plan EGD tomorrow, anticipate d/c home after that. Physical Exam Vital Signs (Past 24 Hours): Last Vital Signs Temp 36.9 C 09/10/18 11:52 Pulse 63 09/10/18 11:52 Resp 18 09/10/18 11:52 BP 115/65 09/10/18 11:52 Pulse Ox 97 09/10/18 11:52
--- NOTE | 2018-09-10 18:52 | Hospitalist Progress Note ---
Date of Service September 10, 2018 Assessment & Plan (1) Upper GI bleed: suspected with minimal acute blood loss anemia repeat H/H this afternoon stable remains on IV PPI twice daily add carafate QID [facility] consult appreciated EGD tomorrow defer diet to GI repeat CBC in am Present on Admission?: Yes (2) Chronic respiratory failure with hypoxia: stable on home o2 amount 2nd to COPD/ILD (3) COPD (chronic obstructive pulmonary disease): recent exacerbation resolved (4) Mild cognitive impairment: stable at baseline (5) Hypothyroid: cont synthroid (6) ILD (interstitial lung disease): stable on home O2 cont usual inhalers etc (7) HTN (hypertension): controlled (8) DVT prophylaxis: SCDs chemical means contraindicated at this time Subjective patient c/o upper abdominal discomfort has had PUD in the past no vomiting but has had nausea no pulmonary symptoms Constitutional: no fever Respiratory: no cough and no dyspnea Cardiovascular: no chest pain Gastrointestinal: + melena; no coffee ground emesis Physical Exam Vital Signs (Past 24 Hours): Last Vital Signs Temp 36.7 C 09/10/18 15:33 Pulse 62 09/10/18 17:04 Resp 18 09/10/18 15:33 BP 121/73 09/10/18 15:33 Pulse Ox 97 09/10/18 15:33 Constitutional: well developed and well nourished; no acute distress and not ill appearing ENMT: external ear and nose normal, oropharynx normal Respiratory: normal respiratory effort, lungs clear to auscultation Cardiovascular: RRR, no murmur, no edema Heart Sounds: normal S1 and normal S2 Vessels: posterior tibial pulses present and dorsalis pedis pulses present; no JVD Gastrointestinal (Abdomen): Inspection/Auscultation: abdomen normal to inspection and normal bowel sounds; abdomen not distended Percussion/Palpation: + abdomen tender (upper abdomen to palpation); no hepatosplenomegaly Skin: no pallor Psychiatric: Orientation: alert Results & Data Laboratory Results Laboratory Results - last 24 hr 09/09/18 09/10/18 09/10/18 20:58 04:30 04:30 WBC RBC Hgb 12.9 Hct 40.2 MCV MCH MCHC RDW Std Deviation RDW Coeff of Karel Plt Count MPV Immature Gran % (Auto) Neut % (Auto) Lymph % (Auto) [place] % (Auto) Eos % (Auto) Baso % (Auto) Immature Gran # (Auto) Neut # (Auto) Lymph # (Auto) [place] # (Auto) Eos # (Auto) Baso # (Auto) Sodium Potassium Chloride Carbon Dioxide Anion Gap BUN Creatinine Est Cr Clr Drug Dosing Est GFR ( Amer) Est GFR (Non-Af Amer) BUN/Creatinine Ratio Glucose Calcium TSH Stool Occult Bld Scrn Negative Stl C. diff Tox B Gene TNP 09/10/18 09/10/18 09/10/18 07:01 07:01 12:18 WBC 6.26 RBC 3.86 L Hgb 11.3 L 11.8 L Hct 35.5 L 36.2 L MCV 92.0 MCH 29.3 MCHC 31.8 L RDW Std Deviation 51.0 H RDW Coeff of Karel 15.3 H Plt Count 131 MPV 9.0 Immature Gran % (Auto) 0.2 Neut % (Auto) 62.7 Lymph % (Auto) 28.3 [place] % (Auto) 6.7 Eos % (Auto) 1.9 Baso % (Auto) 0.2 Immature Gran # (Auto) 0.01 Neut # (Auto) 3.93 Lymph # (Auto) 1.77 [place] # (Auto) 0.42 Eos # (Auto) 0.12 Baso # (Auto) 0.01 Sodium 139 Potassium 4.1 Chloride 106 Carbon Dioxide 28 Anion Gap 6.0 BUN 12 Creatinine 0.74 D Est Cr Clr Drug Dosing 77.5 Est GFR ( Amer) 95.8 Est GFR (Non-Af Amer) 82.7 BUN/Creatinine Ratio 15.8 Glucose 109 H Calcium 7.9 L TSH 4.310 Stool Occult Bld Scrn Stl C. diff Tox B Gene (1) Hypothyroid Hypothyroidism type: acquired Qualified Code(s): E03.9 - Hypothyroidism, unspecified (2) HTN (hypertension) Hypertension type: essential hypertension Qualified Code(s): I10 - Essential (primary) hypertension
[2018-09-10] MEDS: PRAMIPEXOLE DIHYDROCHLO 0.25 MG TAB PO SCH (20:42)
[2018-09-10] MEDS: DONEPEZIL HCL 5 MG TAB PO SCH (20:43)
[2018-09-10] MEDS: SIMVASTATIN 20 MG TAB PO SCH (20:44)
[2018-09-10] MEDS: TRAZODONE HCL 50 MG TAB PO PRN (21:58)
[2018-09-11] MEDS: ALBUTEROL HFA 8 GM INHALER INH SCH ×5 (01:03→16:21)
[2018-09-11] MEDS: POTASSIUM CHLORIDE 10 MEQ in D5W AND NSS 1,000 ML IV SCH ×2 (05:35→16:20)
[2018-09-11] MEDS: LEVOTHYROXINE SODIUM 125 MCG TABLET PO SCH (05:35)
[2018-09-11 08:07] LABS: Hematocrit (blood only) 39.2 % (37-47); Hemoglobin 12.6 g/dL (12.0-16.0); Mean Corpuscular Hgb Conc 32.1 g/dL (32-36); Mean Corpuscular Volume 92.2 fL (80-100); Platelet Count 133 K/uL (130-400); RDW Coefficient of Variation 14.9 % (11.5-14.5); RDW Standard Deviation 50.2 fL (36.4-46.3); Red Blood Count 4.25 M/uL (4.2-5.4); White Blood Count 5.43 K/uL (4.8-10.8)
[2018-09-11 08:42] LABS: Calcium 8.4 mg/dl (8.5-10.1); Creatinine Clr Calc Pharmacy 79.3 ml/min; Est GFR (Non-African American) 85.4; Potassium 4.2 mmol/L (3.5-5.1)
[2018-09-11] MEDS: SUCRALFATE 1 GM/10 ML UDC PO SCH ×3 (10:39→16:21)
[2018-09-11] MEDS: PANTOprazole 40 MG in SYRINGE 0 ML IV SCH (10:39)
--- NOTE | 2018-09-11 11:14 | Gastroenterology Progress Note ---
Date of Service September 11, 2018 Assessment & Plan (1) Upper GI bleed: suspected with minimal acute blood loss anemia repeat H/H this afternoon stable remains on IV PPI twice daily add carafate QID Subjective Constitutional: no fever, no chills, no fatigue and no weight loss Eyes: no eye pain and no worsening vision Ear, Nose, Mouth, Throat: no ear pain, no hearing loss, no nasal congestion and no sore throat Respiratory: no cough, no chest congestion and no wheezing Cardiovascular: no chest pain and no dyspnea Gastrointestinal: as per Subjective / HPI Genitourinary (Female): no dysuria and no urinary incontinence Musculoskeletal: no joint pain Integumentary: no rash and no pruritus Neurologic: no tingling, no numbness and no dizziness Psychiatric: no suicidal ideation and no confusion Endocrine: no cold intolerance and no heat intolerance Hematologic / Lymphatic: no easy bleeding and no easy bruising Allergy / Immunological: no problem reported Physical Exam Vital Signs (Past 24 Hours): Last Vital Signs Temp 36.9 C 09/11/18 10:59 Pulse 75 09/11/18 10:59 Resp 18 09/11/18 10:59 BP 150/81 H 09/11/18 10:59 Pulse Ox 97 09/11/18 10:59 Constitutional: WD/WN, vitals as above healthy appearing; no acute distress Eyes: + anicteric sclerae ENMT: external ear and nose normal, oropharynx normal Neck: normal visual inspection Respiratory: normal respiratory effort, lungs clear to auscultation Cardiovascular: Rate/Rhythm: regular rate and regular rhythm Heart Sounds: no murmur Gastrointestinal (Abdomen): normal bowel sounds, soft, nontender, no hepatosplenomegaly Musculoskeletal: Head/Neck/Chest: normocephalic and head atraumatic Skin: no rashes, warm and dry Neurologic: moves all extremities; no focal motor deficits Psychiatric: Orientation: alert and oriented x 3 HPI - General Adult Related Data Home Medications Medication Instructions Recorded Confirmed Esbriet 534 mg PO TIDM 08/21/18 09/09/18 aspirin [Aspir-81] 81 mg PO DAILY 08/21/18 09/09/18 betamethasone dipropionate 1 applic TOPICAL DAILY PRN 08/21/18 09/09/18 cholecalciferol (vitamin D3) 2,000 unit PO DAILY 08/21/18 09/09/18 [Vitamin D3] clonidine HCl 0.1 mg PO DIRECTED PRN 08/21/18 09/09/18 donepezil 5 mg PO HS 08/21/18 09/09/18 felodipine 5 mg PO QAM 08/21/18 09/09/18 furosemide [Lasix] 20 mg PO QAM 08/21/18 09/09/18 levothyroxine 62.5 mcg PO QAM 08/21/18 09/09/18 losartan 100 mg PO QAM 08/21/18 09/09/18 metoprolol succinate 25 mg PO QAM 08/21/18 09/09/18 mupirocin 1 applic TOPICAL BID PRN 08/21/18 09/09/18 ranitidine HCl [Zantac] 150 mg PO BID 08/21/18 09/09/18 sertraline 100 mg PO QAM 08/21/18 09/09/18 simvastatin 20 mg PO HS 08/21/18 09/09/18 fexofenadine 60 mg PO BID PRN 09/09/18 09/09/18 fluticasone 2 sprays NA DAILY PRN 09/09/18 09/09/18 Previous Rx's Medication Instructions Recorded albuterol sulfate 2 inha INH Q4 #18 gm 08/28/18 hydrocodone-homatropine [Hydromet] 5 ml PO Q6H PRN #473 ml 08/28/18 ipratropium-albuterol 3 ml INHALATION Q4 PRN #90 ml 08/28/18 pramipexole 0.25 mg PO HS #30 tab 08/28/18 sodium chloride [Saline Mist] 2 sprays NA Q1H PRN #1 btl 08/28/18 trazodone 50 mg PO HS PRN #30 tab 08/28/18 Allergies Allergy/AdvReac Type Severity Reaction Status Date / Time hydralazine Allergy Intermediate joint pain Verified 09/09/18 13:42 tetracycline Allergy Mild RASH Verified 09/09/18 13:42 amlodipine AdvReac Mild Edema. Verified 09/09/18 13:42
--- NOTE | 2018-09-11 11:16 | Gastroenterology Progress Note ---
Date of Service September 11, 2018 Assessment & Plan (1) Upper GI bleed: ? UGIB - likely acid-peptic disease. EGD today. Would continue PPI as current. Likely d/c home following procedure, pending findings. Supervising Physician Co-Signing Physician Notes I have personally seen and examined the patient with Sonja Morocho PA-C. Her note reflects my exam and findings. I agree with her impression and plan. Will arrange EGD to rule out upper GI bleed. Kiran Myles M.D. Subjective 67 yo female with chronic abd pain s/p recent admit for COPD exac on steroids, abx now with loose stool x 2-3 days - some dark. She was admitted with dx possible UGIB. BUN normal, hgb improved today at 12.6. CT on admit unremarkable. Last EGD in 2016 showing mild esophagitis. For repeat EGD today. Patient reports mild epigastric abdominal pain and nausea today. NPO for EGD. Constitutional: no fever, no chills, no fatigue and no weight loss Eyes: no eye pain and no worsening vision Ear, Nose, Mouth, Throat: no ear pain, no hearing loss, no nasal congestion and no sore throat Respiratory: no cough, no chest congestion and no wheezing Cardiovascular: no chest pain and no dyspnea Gastrointestinal: as per Subjective / HPI Genitourinary (Female): no dysuria and no urinary incontinence Musculoskeletal: no joint pain Integumentary: no rash and no pruritus Neurologic: no tingling, no numbness and no dizziness Psychiatric: no suicidal ideation and no confusion Endocrine: no cold intolerance and no heat intolerance Hematologic / Lymphatic: no easy bleeding and no easy bruising Allergy / Immunological: no problem reported Physical Exam Vital Signs (Past 24 Hours): Last Vital Signs Temp 36.9 C 09/11/18 10:59 Pulse 75 09/11/18 10:59 Resp 18 09/11/18 10:59 BP 150/81 H 09/11/18 10:59 Pulse Ox 97 09/11/18 10:59 Constitutional: WD/WN, vitals as above healthy appearing; no acute distress Eyes: + anicteric sclerae ENMT: external ear and nose normal, oropharynx normal Neck: normal visual inspection Respiratory: normal respiratory effort, lungs clear to auscultation Cardiovascular: Rate/Rhythm: regular rate and regular rhythm Heart Sounds: no murmur Gastrointestinal (Abdomen): normal bowel sounds, soft, nontender, no h epatosplenomegaly Musculoskeletal: Head/Neck/Chest: normocephalic and head atraumatic Skin: no rashes, warm and dry Neurologic: moves all extremities; no focal motor deficits Psychiatric: Orientation: alert and oriented x 3 Results & Data Laboratory Results Laboratory Results - last 24 hr 09/10/18 09/11/18 09/11/18 12:18 07:43 07:43 WBC 5.43 RBC 4.25 Hgb 11.8 L 12.6 Hct 36.2 L 39.2 MCV 92.2 MCH 29.6 MCHC 32.1 RDW Std Deviation 50.2 H RDW Coeff of Karel 14.9 H Plt Count 133 MPV 9.0 Sodium 140 Potassium 4.2 Chloride 108 H Carbon Dioxide 27 Anion Gap 5.0 BUN 7 D Creatinine 0.72 Est Cr Clr Drug Dosing 79.3 Est GFR ( Amer) 99.0 Est GFR (Non-Af Amer) 85.4 BUN/Creatinine Ratio 9.0 L Glucose 133 H Calcium 8.4 L
--- NOTE | 2018-09-11 11:36 | Anesthesiology Consultation ---
Date of Service September 11, 2018 Assessment & Plan (1) Encounter for pre-operative examination: Chart Review Chart Review: Acceptable Risk for Surgery Consults Requested none ASA ASA4 Proposed Anesthesia Anesthesia Type: MAC Risk / Benefits Reviewed With: PT / POA / Parent / Guardian, Accepts Plan and Informed Consent Obtained NPO Date Last Intake of Fluids: 09/11/18 Time Last Intake of Fluids: 06:00 Date Last Intake of Solids: 09/09/18 Time Last Intake of Solids: 05:30 History Surgery Operation Date: 09/11/18 10:15 Proposed Procedures p Esophagogastroduodenoscopy Dr Shar Myles Height/Weight Height: 5 ft 6.5 in Weight: 79.6 kg Allergies Allergy/AdvReac Type Severity Reaction Status Date / Time hydralazine Allergy Intermediate joint pain Verified 09/09/18 13:42 tetracycline Allergy Mild RASH Verified 09/09/18 13:42 amlodipine AdvReac Mild Edema. Verified 09/09/18 13:42 Medications Home Medications Medication Instructions Recorded Confirmed Last Taken Esbriet 534 mg PO TIDM 08/21/18 09/09/18 09/08/18 aspirin [Aspir-81] 81 mg PO DAILY 08/21/18 09/09/18 09/09/18 betamethasone dipropionate 1 applic TOPICAL DAILY PRN 08/21/18 09/09/18 Unknown cholecalciferol (vitamin D3) 2,000 unit PO DAILY 08/21/18 09/09/18 09/09/18 [Vitamin D3] clonidine HCl 0.1 mg PO DIRECTED PRN 08/21/18 09/09/18 09/09/18 11:00 donepezil 5 mg PO HS 08/21/18 09/09/18 09/08/18 felodipine 5 mg PO QAM 08/21/18 09/09/18 09/09/18 furosemide [Lasix] 20 mg PO QAM 08/21/18 09/09/18 09/09/18 levothyroxine 62.5 mcg PO QAM 08/21/18 09/09/18 09/09/18 losartan 100 mg PO QAM 08/21/18 09/09/18 09/09/18 metoprolol succinate 25 mg PO QAM 08/21/18 09/09/18 09/09/18 mupirocin 1 applic TOPICAL BID PRN 08/21/18 09/09/18 08/21/18 ranitidine HCl [Zantac] 150 mg PO BID 08/21/18 09/09/18 09/09/18 sertraline 100 mg PO QAM 08/21/18 09/09/18 09/09/18 simvastatin 20 mg PO HS 08/21/18 09/09/18 09/08/18 albuterol sulfate 2 inha INH Q4 #18 gm 08/28/18 09/09/18 09/08/18 hydrocodone-homatropine [Hydromet] 5 ml PO Q6H PRN #473 ml 08/28/18 09/09/18 Unknown ipratropium-albuterol 3 ml INHALATION Q4 PRN #90 ml 08/28/18 09/09/18 Unknown pramipexole 0.25 mg PO HS #30 tab 08/28/18 09/09/18 09/08/18 sodium chloride [Saline Mist] 2 sprays NA Q1H PRN #1 btl 08/28/18 09/09/18 09/09/18 trazodone 50 mg PO HS PRN #30 tab 08/28/18 09/09/18 09/08/18 fexofenadine 60 mg PO BID PRN 09/09/18 09/09/18 Unknown fluticasone 2 sprays NA DAILY PRN 09/09/18 09/09/18 Unknown Active Medications Generic Name Dose Route Start Last Admin Trade Name Freq PRN Reason Stop Dose Admin Acetaminophen 650 mg 09/09/18 20:42 09/10/18 12:53 Tylenol PO 10/09/18 20:41 650 mg Q4H PRN Administration Pain or Fever Albuterol 2 puffs 09/09/18 22:00 09/11/18 10:39 Ventolin Hfa INH 10/09/18 21:59 2 puffs Q4 CHANTALE Administration Al Hydrox/Mg Hydrox/ 0 ml 09/09/18 20:42 09/10/18 15:07 Simethicone 72 ml/ Lidocaine PO 10/09/18 20:41 24 ml HCl 24 ml/ BARCODE IDENTIFIER Q4H PRN Administration 1 ea abd pain Donepezil HCl 5 mg 09/09/18 21:00 09/10/18 20:43 Aricept PO 10/09/18 20:59 5 mg HS CHANTALE Administration Felodipine 5 mg 09/10/18 09:00 09/10/18 08:30 Plendil PO 10/10/18 08:59 5 mg QAM CHANTALE Administration Furosemide 20 mg 09/10/18 09:00 09/10/18 08:31 Lasix PO 10/10/18 08:59 20 mg QAM CHANTALE Administration Potassium Chloride 10 meq/ 1,005 mls @ 100 mls/hr 09/09/18 21:00 09/11/18 05:35 Dextrose/Sodium Chloride IV 10/09/18 20:59 100 mls/hr .Q10H3M CHANTALE Administration Pantoprazole Sodium 40 mg/ 10 mls @ 5 mls/min 09/09/18 21:00 09/11/18 10:39 Syringe IV 10/09/18 20:59 5 mls/min BID CHANTALE Administration Ioversol 94 ml 09/09/18 15:35 09/09/18 15:36 Optiray 320 100ml IV 09/13/18 15:34 94 ml ONCE PRN Administration Interaction Checking Levothyroxine Sodium 62.5 mcg 09/10/18 06:30 09/11/18 05:35 Synthroid PO 10/10/18 06:29 62.5 mcg DAILYBB CHANTALE Administration Losartan Potassium 100 mg 09/10/18 09:00 09/10/18 08:31 Cozaar PO 10/10/18 08:59 100 mg QAM CHANTALE Administration Metoprolol Succinate 25 mg 09/10/18 09:00 09/10/18 08:31 Toprol Xl PO 10/10/18 08:59 25 mg QAM CHANTALE Administration Miscellaneous 1 ea 09/10/18 00:00 09/11/18 09:41 Order Awaiting Action N/A 10/10/18 00:00 Not Given QS CHANTALE Pramipexole Dihydrochloride 0.25 mg 09/09/18 21:00 09/10/18 20:42 Mirapex PO 10/09/18 20:59 0.25 mg HS CHANTALE Administration Ranitidine HCl 150 mg 09/09/18 21:00 09/10/18 20:44 Zantac PO 10/09/18 20:59 150 mg BID CHANTALE Administration Sertraline HCl 100 mg 09/10/18 09:00 09/10/18 08:31 Zoloft PO 10/10/18 08:59 100 mg QAM CHANTALE Administration Simvastatin 20 mg 09/09/18 21:00 09/10/18 20:44 Zocor PO 10/09/18 20:59 20 mg HS CHANTALE Administration Sucralfate 1 gm 09/10/18 13:00 09/11/18 10:39 Carafate PO 10/10/18 12:59 Not Given QID CHANTALE Trazodone HCl 50 mg 09/09/18 20:42 09/10/18 21:58 Desyrel PO 10/09/18 20:41 50 mg HS PRN Administration Insomnia Vitamin D 2,000 units 09/10/18 09:00 09/10/18 08:30 Vitamin D3 PO 10/10/18 08:59 2,000 units DAILY CHANTALE Administration Past Medical History Medical History HTN (hypertension) (Chronic) COPD exacerbation Hyperlipidemia Pneumonia Past Family History Family History Sister Heart attack Sister CVA (cerebral vascular accident) Other No pertinent family history Past Surgical History Surgical History S/P mastectomy Past Anesthesia History No Hx of Anesthesia Complications and No Family Hx of Anesthesia Complications History of PONV No Motion Sickness Screening History of Motion Sickness: No Social History Smoking Status: Former smoker Hx Alcohol Use: No Hx Substance Use: No Exercise / Class Metabolic Activity III < 4 Walking/Shop/Light housework Physical Exam Vital Signs Last Vital Signs Temp 97.7 F 09/11/18 11:32 Pulse 72 09/11/18 11:32 Resp 20 09/11/18 11:32 BP 155/86 H 09/11/18 11:32 Pulse Ox 100 09/11/18 11:32 ENMT Mouth: no dentition abnormality Thyromental Distance: > or= 3.5 Finger Breadths Mallampati Class: II Neck normal visual inspection Respiratory normal respiratory effort Auscultation: lungs clear to auscultation bilaterally Cardiovascular Rate/Rhythm: regular rate and regular rhythm Testing Electrocardiogram Date: 09/09/18 Findings: + NSR @ (81 bpm) and + LVH Laboratory Results 09/11/18 07:43 09/11/18 07:43 PT 9.5 Seconds (9.0-12.0) 09/09/18 12:25 INR 0.9 (0.9-1.1) 09/09/18 12:25 APTT 23.3 Seconds (21.0-31.0) 09/09/18 12:25
--- NOTE | 2018-09-11 11:51 | History & Physical Report ---
Date of Service September 11, 2018 Assessment & Plan (1) GI bleed: stable for EGD History of Present Illness Chief Complaint: anemia/GI bleeding Primary Care Provider: Salome Pizano MD pt with anemia and concerns for upper GI bleeding Allergies Allergy/AdvReac Type Severity Reaction Status Date / Time hydralazine Allergy Intermediate joint pain Verified 09/09/18 13:42 tetracycline Allergy Mild RASH Verified 09/09/18 13:42 amlodipine AdvReac Mild Edema. Verified 09/09/18 13:42 Home Medications Home Medications Medication Instructions Recorded Confirmed Type Esbriet 534 mg PO TIDM 08/21/18 09/09/18 History aspirin [Aspir-81] 81 mg PO DAILY 08/21/18 09/09/18 History betamethasone dipropionate 1 applic TOPICAL DAILY PRN 08/21/18 09/09/18 History cholecalciferol (vitamin D3) 2,000 unit PO DAILY 08/21/18 09/09/18 History [Vitamin D3] clonidine HCl 0.1 mg PO DIRECTED PRN 08/21/18 09/09/18 History donepezil 5 mg PO HS 08/21/18 09/09/18 History felodipine 5 mg PO QAM 08/21/18 09/09/18 History furosemide [Lasix] 20 mg PO QAM 08/21/18 09/09/18 History levothyroxine 62.5 mcg PO QAM 08/21/18 09/09/18 History losartan 100 mg PO QAM 08/21/18 09/09/18 History metoprolol succinate 25 mg PO QAM 08/21/18 09/09/18 History mupirocin 1 applic TOPICAL BID PRN 08/21/18 09/09/18 History ranitidine HCl [Zantac] 150 mg PO BID 08/21/18 09/09/18 History sertraline 100 mg PO QAM 08/21/18 09/09/18 History simvastatin 20 mg PO HS 08/21/18 09/09/18 History albuterol sulfate 2 inha INH Q4 #18 gm 08/28/18 09/09/18 Rx hydrocodone-homatropine [Hydromet] 5 ml PO Q6H PRN #473 ml 08/28/18 09/09/18 Rx ipratropium-albuterol 3 ml INHALATION Q4 PRN #90 ml 08/28/18 09/09/18 Rx pramipexole 0.25 mg PO HS #30 tab 08/28/18 09/09/18 Rx sodium chloride [Saline Mist] 2 sprays NA Q1H PRN #1 btl 08/28/18 09/09/18 Rx trazodone 50 mg PO HS PRN #30 tab 08/28/18 09/09/18 Rx fexofenadine 60 mg PO BID PRN 09/09/18 09/09/18 History fluticasone 2 sprays NA DAILY PRN 09/09/18 09/09/18 History Past Med/Surg History Medical History HTN (hypertension) (Chronic) COPD exacerbation Hyperlipidemia Pneumonia Surgical History S/P mastectomy Family History Sister Heart attack Sister CVA (cerebral vascular accident) Other No pertinent family history Social History Communication Ability: Effective Beliefs That Will Affect Care: None marital status: Current Living Situation: Alone Feels Safe at Home: Yes Safety Concerns: Feels Safe At This Time Smoking Status: Former smoker Hx Alcohol Use: No Hx Substance Use: No Physical Exam Vital Signs (Past 24 Hours): Last Vital Signs Temp 36.5 C 09/11/18 11:32 Pulse 72 09/11/18 11:32 Resp 20 09/11/18 11:32 BP 155/86 H 09/11/18 11:32 Pulse Ox 100 09/11/18 11:32 Constitutional: WD/WN, vitals as above Respiratory: normal respiratory effort, lungs clear to auscultation Cardiovascular: RRR, no murmur, no edema Gastrointestinal (Abdomen): normal bowel sounds, soft, nontender, no hepatosplenomegaly Code Status & VTE Plan VTE Prophylaxis Plan VTE Prophylaxis will be ordered: Yes
[2018-09-11] MEDS ORDERED: PROPOFOL IV EMULSION 10 MG/ML 20 ML VIAL IV ONE (12:07)
[2018-09-11] MEDS ORDERED: LIDOCAINE HCL 2% 2 ML VIAL/AMP(20MG/ML) INFIL ONE (12:07)
--- NOTE | 2018-09-11 12:32 | GI REPORT ---
Patient Name: Jeannette Licona Procedure Date: 09/11/2018 11:51 AM Date of : 1950 Admit Type: Inpatient Age: 67 Gender: Female Attending MD: Kiran yMles MD Procedure: Upper GI endoscopy Providers: Kiran Myles MD Referring MD: Jerome Lovell Indications: Epigastric abdominal pain, Suspected upper gastrointestinal bleeding, Anemia Medicines: See the Anesthesia note for documentation of the administered medications Complications: No immediate complications. Estimated Blood Loss: Estimated blood loss: none. Procedure: Pre-Anesthesia Assessment: - Prior to the procedure, a History and Physical was performed, and patient medications, allergies and sensitivities were reviewed. The patient's tolerance of previous anesthesia was reviewed. - The risks and benefits of the procedure and the sedation options and risks were discussed with the patient. All questions were answered and informed consent was obtained. - Patient identification and proposed procedure were verified prior to the procedure by the physician and the nurse. The procedure was verified in the pre-procedure area. - Pre-procedure physical examination revealed no contraindications to sedation. - After reviewing the risks and benefits, the patient was deemed in satisfactory condition to undergo the procedure. After obtaining informed consent, the endoscope was passed under direct vision. Throughout the procedure, the patient's blood pressure, pulse, and oxygen saturations were monitored continuously. The Endoscope was introduced through the mouth, and advanced to the third part of duodenum. The upper GI endoscopy was accomplished without difficulty. The patient tolerated the procedure well. Findings: The esophagus was normal. The stomach was normal. The examined duodenum was normal. The cardia and gastric fundus were normal on retroflexion. Impression: - Normal esophagus. - Normal stomach. - Normal examined duodenum. - No specimens collected. Recommendation: - Return patient to [facility] for ongoing care. Kiran Myles M.D. Kiran Myles MD 09/11/2018 12:31:44 PM This report has been signed electronically. Note Initiated On: 09/11/2018 11:51 AM Number of Addenda: 0 I attest to the content of the Intraoperative Record and orders documented therein, exceptions below {[id number]}
[2018-09-11] MEDS: LOSARTAN POTASSIUM 50 MG TAB PO SCH (13:34)
[2018-09-11] MEDS: SERTRALINE HCL 100 MG TABLET PO SCH (13:35)
[2018-09-11] MEDS: METOPROLOL SUCC 25MG EXT REL TAB PO SCH (13:35)
[2018-09-11] MEDS: FUROSEMIDE 20 MG TAB PO SCH (13:35)
[2018-09-11] MEDS: FELODIPINE 5 MG TABCR PO SCH (13:36)
[2018-09-11] MEDS: CHOLECALCIFEROL 1,000 UNITS TAB PO SCH (13:36)
[2018-09-11] MEDS: ACETAMINOPHEN 325 MG TAB PO PRN (13:37)
--- NOTE | 2018-09-11 13:57 | Anesthesiology Progress Note ---
Date of Service September 11, 2018 Anesthesia Post Procedure Vital Signs Vital Signs: Temp Pulse Pulse Resp BP BP Pulse Ox 09/11/18 12:50 98.6 F 85 16 209/107 H 97 09/11/18 12:40 71 20 164/89 H 93 09/11/18 12:26 70 18 146/73 H 100 09/11/18 12:13 80 16 138/86 99 09/11/18 11:32 97.7 F 72 20 155/86 H 100 09/11/18 10:59 98.4 F 75 18 150/81 H 97 09/11/18 10:19 77 09/11/18 07:35 98.4 F 81 18 155/72 H 98 09/11/18 03:49 97.3 F L 66 16 109/55 L 95 09/11/18 01:03 68 09/10/18 23:01 97.2 F L 69 18 111/59 L 96 09/10/18 19:32 97.7 F 68 18 125/66 96 09/10/18 17:04 62 09/10/18 15:33 98.1 F 59 L 18 121/73 97 Pain Intensity Abdomen: Pain Intensity: 2 Notes Mental Status: alert / awake / arousable and participated in evaluation Patient Amnestic to Procedure: Yes Nausea / Vomiting: adequately controlled Pain: adequately controlled Airway Patency, RR, SpO2: stable & adequate BP & HR: stable & adequate Hydration State: stable & adequate Anesthetic Complications: no major complications apparent and Pt Satisfied with anesthetic care
--- NOTE | 2018-09-18 08:31 | Discharge Summary ---
Date of Service date of admission - September 09, 2018 date of discharge - September 11, 2018 Admission HPI Per Admitting Provider 67 y/o female with chronic hypoxic respiratory failure 2nd to ILD who presented with concerns of blood per rectum. Pt states she had an episode of dark, tarry stools early this AM. She frequently has bright red blood on toilet tissue related to her hemorrhoids, but black stools are not usual for her. She states she has not really felt well since her recent d/c on 08/28. She has had ongoing lower abd pain since about 2 days after going home and this was worse today. She also noted mucous per rectum, but this was occurring even prior to her recent admission. Pt finished her course of abx. She did not have diarrhea with her abx use. She generally has abd pain, but this is more intense than usual. Pt states she has hx of c-scope and EGD about 3-4 yrs ago. She does not remember the name of the GI physician, but states these were done at [facility]. She states she was found to have polyps that were benign on c-scope and her EGD showed "inflammation everywhere". She has not had need for further f/u. Pt was a recent d/c on 08/28 for COPD and ILD exacerbations. She was also found to have a sinusitis and finished a 10 day course of augmentin. Pt states her breathing has not been an issue since d/c. Pt denies fever, SOB, chest pain, n/v/c/d, LE pain or swelling. Pt states she has a lot of pain in her rectum and that she had known hemorrhoids. Her pain is increased s/p recent d/c. No issues with urination. Pt received protonix and GI cocktail in the ED. She is still having lower abd pain, but it is improved. Of note - stool was HEME NEGATIVE in the ED at presentation. Principal Diagnosis concern for upper GI bleeding - ruled out Discharge Exam Constitutional well developed and well nourished; no acute distress and not ill appearing ENMT external ear and nose normal, oropharynx normal Respiratory normal respiratory effort, lungs clear to auscultation Cardiovascular RRR, no murmur, no edema Heart Sounds: normal S1 and normal S2 Vessels: posterior tibial pulses present and dorsalis pedis pulses present; no JVD Gastrointestinal (Abdomen) Inspection/Auscultation: abdomen normal to inspection and normal bowel sounds; abdomen not distended Percussion/Palpation: abdomen nontender and no hepatosplenomegaly Psychiatric Orientation: alert and oriented x 3 Discharge Data Allergies Allergy/AdvReac Type Severity Reaction Status Date / Time hydralazine Allergy Intermediate joint pain Verified 09/09/18 13:42 tetracycline Allergy Mild RASH Verified 09/09/18 13:42 amlodipine AdvReac Mild Edema. Verified 09/09/18 13:42 Consultations [facility] Procedures Performed 1. Operation Date: 09/11/18 Esophagogastroduodenoscopy - Kiran Myles MD - entirely normal esophagus, stomach, and duodenum. 2. CT abd/pelvis: IMPRESSION: 1. No bowel wall thickening or obstruction. 2. Normal appendix. 3. No hydronephrosis. Hospital Course (1) Upper GI bleed: suspected but RULED OUT. stool in the ER at time of admission was heme negative. presenting hemoglobin was 12.8 and discharge hemoglobin was 12.6. she was started on IV PPI and carafate. [facility] to the patient's report of melena, her abdominal pain, and prior h/o PUD. EGD was performed and was entirely normal. as noted above CT abd/pelvis was normal. the patient kept reporting diarrhea stools but interestingly a stool sample for c diff submitted to the lab on 09/10/18 was rejected by the lab because the stool was formed. at discharge the patient again stated her stools were "diarrhea" but nursing staff reported that the stools were not liquid. the patient was given a cup for stool to drop off to the lab after discharge to recheck a stool for c diff and culture if stools do in fact become diarrhea- like. the exact cause of the patient's abdominal complaints was uncertain. I recommended follow-up with [facility] after discharge if these symptoms continue. (2) Chronic respiratory failure with hypoxia: stable on home o2 amount 2nd to COPD/ILD (3) COPD (chronic obstructive pulmonary disease): recent exacerbation resolved (4) Mild cognitive impairment: stable at baseline (5) Hypothyroid: cont synthroid (6) ILD (interstitial lung disease): stable on home O2 cont usual inhalers etc (7) HTN (hypertension): controlled during the stay Total Time Total Time Spent Total Time Spent (In Minutes): 40 Total Time Includes: Examination of the Patient, Discharge Planning and Medication Reconciliation Discharge Plan Discharge Items Patient Disposition: Home - Self-Care Reason For Visit: MELENA Discharge Diagnosis: suspicion of GI bleeding - hemoglobin (red cells) remained stable during the entire stay. no bleeding found on upper endoscopy. the EGD was completely normal. diarrhea - testing needed. Discharge Goals: Diagnostic testing and Therapeutic intervention Activity: Resume your previous activity Non-emergency contact: Primary Care Provider Call non-emergency contact if: you have any medication questions, your symptoms worsen, your pain is not controlled, your pain is worsening, your pain is unusual for you, your pain is concerning for you and your temperature is above 100.5 Follow-up/Referrals: Salome Pizano MD [Primary Care Provider] - Diet: Low Fiber Addtl Provider Instructions: From Jerome Lovell - Hospitalist - You were admitted to the hospital because of concern of upper GI bleeding. Your stools prior to admission were described as dark in color and sometimes this can be a sign of old blood. We did test the stool for blood and it returned negative. Your hemoglobin (red blood cell level) remained stable in the 12's the entire stay. Usually if there is active bleeding the hemoglobin level drops quickly over short periods of time. You underwent an upper endoscopy by Gabbie ROBISON and this did not show any bleeding. It was entirely normal. Good news! You reported intermittent diarrhea during the stay. At this time we need to rule out an infection called c. diff. When you are able to produce a stool specimen please drop that off to the hospital or any of the [facility] clinics for processing. Place the specimen in the cup provided. In addition to the above please do the following - 1. take a probiotic supplement for 10 days. A prescription was sent to your pharmacy for you. Start this letitia. 2. eat a low fiber diet. You may want to consider a "BRAT" diet for several days. This consists of bananas, rice, applesauce, and toast. Avoid high fiber foods including certain cereals, oatmeal, excecssive fruits/veggies, beans, etc. 3. drink plenty of fluids over the next 2-3 days 4. once I see the stool test results I will let you know. 5. do not take any lgbo-qov-lazytex immodium or stool binders for the diarrhea. 6. follow-up -- see your family doctor within 48 hours if possible 7. continue your oxygen as previous. 8. return to [facility] if - * you have fever over 100.5 degrees * you have worsening abdominal pain * you have persistent nausea or vomiting * you have severe diarrhea * any other concerns 9. hold your aspirin for now; your family doctor can likely restart it in the next couple of weeks. Prescriptions: New Saccharomyces boulardii 250 mg capsule 250 mg PO DAILY 10 Days Qty: 10 RF: 0 Continued clonidine HCl 0.1 mg Tablet 0.1 mg PO DIRECTED PRN (Reason: ELEVATED B/P) RF: 0 donepezil 5 mg Tablet 5 mg PO HS RF: 0 felodipine 5 mg Tablet Extended Release 24 Hr 5 mg PO QAM RF: 0 sertraline 100 mg Tablet 100 mg PO QAM RF: 0 simvastatin 20 mg Tablet 20 mg PO HS RF: 0 levothyroxine 125 mcg Tablet 62.5 mcg PO QAM RF: 0 ranitidine HCl [Zantac] 150 mg Tablet 150 mg PO BID RF: 0 betamethasone dipropionate 0.05 % Cream 1 applic TOPICAL DAILY PRN (Reason: Skin Irritation) RF: 0 mupirocin 2 % Ointment 1 applic TOPICAL BID PRN (Reason: sores) RF: 0 furosemide [Lasix] 20 mg Tablet 20 mg PO QAM RF: 0 metoprolol succinate 25 mg Tablet Extended Release 24 Hr 25 mg PO QAM RF: 0 losartan 100 mg Tablet 100 mg PO QAM RF: 0 cholecalciferol (vitamin D3) [Vitamin D3] 2,000 unit Capsule 2,000 unit PO DAILY RF: 0 Esbriet 267 mg Capsule 534 mg PO TIDM RF: 0 pramipexole 0.25 mg Tablet 0.25 mg PO HS Qty: 30 RF: 0 trazodone 50 mg Tablet 50 mg PO HS PRN (Reason: Insomnia) Qty: 30 RF: 0 sodium chloride [Saline Mist] 0.65 % Aerosol,[place] 2 sprays NA Q1H PRN (Reason: nasal congestion) Qty: 1 RF: 0 albuterol sulfate 90 mcg/actuation HFA aerosol inhaler 2 inha INH Q4 Qty: 18 RF: 0 ipratropium-albuterol 0.5 mg-3 mg(2.5 mg base)/3 mL Solution For Nebulization 3 ml INHALATION Q4 PRN (Reason: Shortness Of Breath Or Wheezing) Qty: 90 RF: 0 fexofenadine 60 mg tablet 60 mg PO BID PRN (Reason: Allergic Symptoms) RF: 0 fluticasone propionate 50 mcg/actuation spray,suspension 2 sprays NA DAILY PRN (Reason: Congestion) RF: 0 Discontinued aspirin [Aspir-81] 81 mg Tablet,Delayed Release (Dr/Ec) 81 mg PO DAILY RF: 0 hydrocodone-homatropine [Hydromet] 5-1.5 mg/5 mL Syrup 5 ml PO Q6H PRN (Reason: cough) Qty: 473 RF: 0 Stand-Alone Forms: [facility] Discharge Orders: Discharge Order (Routine); Ordered 09/11/18 Ordered By: Jerome Lovell Admission Data Admit Date/Time: 09/09/18 18:30 Attending Provider: Jerome Lovell Admit Provider: Corine Samuel Primary Care Provider: Salome Pizano Other Providers: Corine Samuel ; Mayco Hart ; Home,Nursing Agency Service: Telemetry Other Interventions: Discharge Summary Assessment (RN) Last Done: 09/11/18 18:42 Pending Studies at Discharge: No DC Date/Time DO NOT enter until pt leaves facility: 09/11/18 18:56
== END 2018-09-11 18:56 | disposition home or self-care (01) ==
LOC: 2W 12:15 → ED 12:15 → SUATTDRO 18:30 → 2W 20:07

== ENCOUNTER 2019-07-29 10:07 | Inpatient (IN) ==
[2019-07-29] MEDS ORDERED: ALBUT/IPRATROP 3MG/0.5MG NEB 3 ML VIAL NEB STA ×2 (10:49→12:46)
[2019-07-29 10:56] LABS: Basophils # (auto) 0.04 K/uL (0-0.2); Basophils % (auto) 0.5 %; Eosinophils # (auto) 0.11 K/uL (0-0.5); Eosinophils % (auto) 1.5 %; Hematocrit (blood only) 37.6 % (37-47); Hemoglobin 12.8 g/dL (12.0-16.0); Immature Granulocytes # (auto) 0.02 K/uL (0.00-0.02); Immature Granulocytes % (auto) 0.3 %; Lymphocytes % (auto) 21.3 %; Mean Corpuscular Hemoglobin 30.2 pg (25-34); Mean Corpuscular Volume 88.7 fL (80-100); Mean Platelet Volume 9.7 fL (7.4-10.4); Monocytes # (auto) 0.58 K/uL (0.11-0.59); Monocytes % (auto) 7.7 %; Neutrophils # (auto) 5.15 K/uL (1.4-6.5); Neutrophils % (auto) 68.7 %; Platelet Count 238 K/uL (130-400); RDW Coefficient of Variation 14.6 % (11.5-14.5); RDW Standard Deviation 47.3 fL (36.4-46.3); Red Blood Count 4.24 M/uL (4.2-5.4)
[2019-07-29 11:01] LABS: Alanine Aminotransferase 39 U/L (12-78); Albumin Level 3.8 gm/dl (3.4-5.0); Aspartate Aminotransferase 34 U/L (15-37); BUN Creatinine Ratio 12.8 (10-20); Blood Urea Nitrogen 14 mg/dl (7-18); Calcium 9.9 mg/dl (8.5-10.1); Carbon Dioxide 27 mmol/L (21-32); Chloride 99 mmol/L (98-107); Creatinine Clr Calc Pharmacy 56.5 ml/min; Est GFR (African American) 58.9; Est GFR (Non-African American) 50.8; Glucose 121 mg/dl (70-99); Magnesium 1.8 mg/dl (1.8-2.4); Potassium 4.2 mmol/L (3.5-5.1); Sodium 133 mmol/L (136-145)
[2019-07-29 11:06] LABS: Albumin Globulin Ratio 1.1 (0.9-2); Alkaline Phosphatase 84 U/L (45-117); Bilirubin,Total 0.6 mg/dl (0.2-1); Globulin 3.6 gm/dl (2.5-4.0); NT Pro B Type Natriuretic Pept 62 pg/ml (0-900); Total Protein 7.4 gm/dl (6.4-8.2); Troponin I < 0.015 ng/ml (0-0.045)
--- NOTE | 2019-07-29 11:09 | XRay Report ---
XR chest 1V portable HISTORY: 68 years-old Female Dyspnea acute shortness of breath COMPARISON: Chest CT 04/03/2019, chest radiograph 08/24/2018 TECHNIQUE: Portable AP view of the chest FINDINGS: Cardiac silhouette is enlarged. Emphysema with chronic interstitial coarsening. Mild chronic blunting of the costophrenic angles without pneumothorax, large pleural effusion, overt pulmonary edema or ne w airspace consolidation. Degenerative changes of the shoulders and spine. IMPRESSION: 1. Cardiomegaly without overt pulmonary edema. 2. Emphysema with chronic interstitial coarsening. ACT 112: Negative or not required by law. The above report was generated using voice recognition software. It may contain grammatical, syntax o r spelling errors. Electronically signed by: Marck Olivares M.D. 07/29/2019 11:08 AM
[2019-07-29 11:11] LABS: Partial Thromboplastin Ratio 0.9; Prothrombin Time 10.3 Seconds (9.0-12.0)
[2019-07-29] MEDS ORDERED: methylPREDNISolone 125 MG/2 ML VIAL IV STA (13:22)
--- NOTE | 2019-07-29 13:56 | History & Physical Report ---
Date of Service July 29, 2019 Assessment & Plan (1) COPD exacerbation: (2) Chronic respiratory failure with hypoxia: This is a 68yo F with a PMH of COPD and IPF, chronic respiratory failure on 2L NC O2, HTN, CKD III, depression, anxiety, PTSD, hypothyroidism and other medical problems listed below who presents with progressive SOB x 1 month who was found to have COPD exacerbation. -Progressively worsening cough, wheezing and dyspnea on exertion in the setting of COPD and IPF -At oxygen baseline saturating 97% on 2L -CXR with cardiomegaly without overt pulmonary edema. Emphysema with chronic interstitial coarsening. No evidence of pneumonia -Given albuterol breathing treatment x 2, IV solu-medrol 125mg x 1 -Starting azithromycin course, prednisone 40mg x 5 days, duonebs QIDR, cough suppressant -Continue albuterol inhaler PRN, Dulera, Singulair (3) HTN (hypertension): Normotensive. Continue hctz, losartan (4) Anxiety and depression: Continue sertraline (5) CKD (chronic kidney disease), stage III: Kidney function at baseline. Continue to monitor (6) History of breast cancer: S/p mastectomy and chemo treatment -In remission (7) Insomnia: Continue Trazodone -Was taking clonidine HS PRN for insomnia but causing erratic BP. Will hold for now (8) BERNA (obstructive sleep apnea): Intolerant to CPAP DVT Ppx: SQ lovenox Code status: FULL PCP: Zackery Dispo: Observation med tele. Plan to return home once medically stable. Patient seen in collaboration with Dr. Calderon. Please see addendum. History of Present Illness Chief Complaint: SOB, cough Primary Care Provider: Cristina Vizcarra MD This is a 68yo F with a PMH of COPD and IPF, chronic respiratory failure on 2L NC O2, HTN, CKD III, depression, anxiety, PTSD, hypothyroidism and other medical problems listed below who presents with progressive SOB x 1 month. Symptoms improved after PCP prescribed Levaquin and 1 month prednisone taper back in June, but began feeling worse again over the past few weeks. Cough is persistent yet dry and cough suppressants have not been helping. Continues to experience dyspnea on exertion and pleuritic chest pain as well as wheezing. Also experiencing burning cramps in bilateral legs. Denies fever or chills. Has been using inhales at home as well as nebulizer treatments four times a day. Endorses recent sick contacts in the past few weeks. No lightheadedness, visual changes, palpitations, hemoptysis, nausea, vomiting, abdominal pain, dysuria, diarrhea or constipation. Allergies Allergy/AdvReac Type Severity Reaction Status Date / Time hydralazine Allergy Intermediate joint pain Verified 07/29/19 11:19 tetracycline Allergy Mild RASH Verified 07/29/19 11:19 amlodipine AdvReac Mild Edema. Verified 07/29/19 11:19 Home Medications Home Medications Medication Instructions Recorded Confirmed Type levothyroxine [Synthroid] 62.5 mcg PO QAM 08/21/18 07/29/19 History fluticasone propionate [Flonase 2 sprays INTRANASAL DAILY 09/09/18 07/29/19 History Allergy Relief] Oxygen Home #1 ea 03/09/19 04/24/19 History aspirin 81 mg tablet,delayed 81 mg PO DAILY #30 tab 03/09/19 07/29/19 History release inhalational spacing device #1 ea 03/09/19 04/24/19 History tiotropium bromide 2.5 2 puffs INHALATION DAILY #1 gm 03/09/19 07/29/19 History mcg/actuation mist for inhalation atorvastatin 40 mg tablet 40 mg PO DAILY 03/12/19 07/29/19 History furosemide 20 mg tablet 20 mg PO QAM #30 tab 03/14/19 07/29/19 Rx albuterol sulfate 2.5 mg INHALATION Q4H PRN 07/29/19 07/29/19 History albuterol sulfate [Ventolin HFA] 2 inha INH Q4H PRN 07/29/19 07/29/19 History azelastine 1 spray INTRANASAL BID 07/29/19 07/29/19 History benzonatate [Tessalon Perles] 100 mg PO TID PRN 07/29/19 07/29/19 History budesonide [Pulmicort] 0.5 mg INHALATION DAILY 07/29/19 07/29/19 History buspirone 15 mg PO BID 07/29/19 07/29/19 History cholecalciferol (vitamin D3) 50,000 unit PO WK 07/29/19 07/29/19 History [Vitamin D3] clonidine HCl [Catapres] 0.1 mg PO HS PRN 07/29/19 07/29/19 History codeine-guaifenesin [G Tussin AC] 5 ml PO TID PRN 07/29/19 07/29/19 History diltiazem HCl [Cardizem] 120 mg PO BID 07/29/19 07/29/19 History donepezil [Aricept] 5 mg PO UD 07/29/19 07/29/19 History famotidine [Pepcid] 20 mg PO DAILY 07/29/19 07/29/19 History hydrochlorothiazide 12.5 mg PO DAILY 07/29/19 07/29/19 History loratadine [Claritin] 10 mg PO DAILY 07/29/19 07/29/19 History losartan [Cozaar] 100 mg PO QAM 07/29/19 07/29/19 History mometasone-formoterol [Dulera] 2 puff INHALATION BID 07/29/19 07/29/19 History montelukast [Singulair] 10 mg PO HS 07/29/19 07/29/19 History lcoqmzpf-doa-nhts-FA-lutein 1 tab PO DAILY 07/29/19 07/29/19 History [Multivitamin Women 50 Plus] pantoprazole [Protonix] 40 mg PO DAILYBB 07/29/19 07/29/19 History pramipexole [Mirapex] 0.25 mg PO DAILY 07/29/19 07/29/19 History sertraline [Zoloft] 100 mg PO QAM 07/29/19 07/29/19 History trazodone 50 mg PO HS 07/29/19 07/29/19 History Past Med/Surg History Medical History Anxiety and depression (Chronic) Axillary lymphadenopathy Chronic respiratory failure with hypoxia (Chronic) CKD (chronic kidney disease), stage III COPD (chronic obstructive pulmonary disease) History of breast cancer HTN (hypertension) (Chronic) Hyperlipidemia Hypothyroidism (Chronic) ILD (interstitial lung disease) (Acute) Mild cognitive impairment BERNA (obstructive sleep apnea) Prediabetes Restless legs syndrome Surgical History S/P mastectomy S/P mastectomy, bilateral (Resolved) Family History (Updated 07/29/19 @ 15:38 by Nancy Orr PA-C) Sister Myocardial infarction Sister Stroke Social History Preferred Language: Dominican Communication Ability: Effective Cardiovascular Operating Room Nurse Required: No Beliefs That Will Affect Care: None marital status: Current Living Situation: Alone Other Information That Helps Us Care for You: No Feels Safe at Home: Yes Safety Concerns: Feels Safe At This Time Smoking Status: Former smoker Do You Dip or Chew Tobacco: No ; Number of Years Since Quit: 9 ; Second Hand Exposure: No ; Tobacco Cessation Education Reque sted by Patient: No Hx Alcohol Use: No Hx Substance Use: No Review of Systems Review of Systems: At least ten systems reviewed and negative except as noted in the HPI. Physical Exam Physical Exam: Please see Dr. Calderon's addendum for physical exam details Results & Data Vital Signs (Past 12 Hours) Vital Signs Temp Pulse Pulse Resp BP Pulse Ox 07/29/19 13:30 67 19 94 07/29/19 13:02 68 18 95 07/29/19 13:00 67 19 96 07/29/19 12:30 83 21 92 07/29/19 12:00 86 21 95 07/29/19 11:30 76 17 94 07/29/19 11:21 65 18 95 07/29/19 11:20 97 07/29/19 10:32 64 23 98 07/29/19 10:20 37.1 C 68 20 164/80 H 98 07/29/19 10:19 98 07/29/19 10:09 63 19 164/80 H 98 Laboratory Results Short CBC 07/29/19 07/29/19 07/29/19 Range/Units 10:20 10:20 10:20 WBC 7.50 (4.8-10.8) K/uL RBC 4.24 (4.2-5.4) M/uL Hgb 12.8 (12.0-16.0) g/dL Hct 37.6 (37-47) % MCV 88.7 (80-100) fL MCH 30.2 (25-34) pg MCHC 34.0 (32-36) g/dL RDW Std Deviation 47.3 H (36.4-46.3) fL RDW Coeff of Karel 14.6 H (11.5-14.5) % Plt Count 238 (130-400) K/uL MPV 9.7 (7.4-10.4) fL Immature Gran % (Auto) 0.3 % Neut % (Auto) 68.7 % Lymph % (Auto) 21.3 % [place] % (Auto) 7.7 % Eos % (Auto) 1.5 % Baso % (Auto) 0.5 % Immature Gran # (Auto) 0.02 (0.00-0.02) K/uL Neut # (Auto) 5.15 (1.4-6.5) K/uL Lymph # (Auto) 1.60 (1.2-3.4) K/uL [place] # (Auto) 0.58 (0.11-0.59) K/uL Eos # (Auto) 0.11 (0-0.5) K/uL Baso # (Auto) 0.04 (0-0.2) K/uL PT 10.3 (9.0-12.0) Seconds INR 1.0 (0.9-1.1) APTT 25.0 (21.0-31.0) Seconds PTT Ratio 0.9 Sodium 133 L (136-145) mmol/L Potassium 4.2 (3.5-5.1) mmol/L Chloride 99 (98-107) mmol/L Carbon Dioxide 27 (21-32) mmol/L Anion Gap 7.0 (3-11) BUN 14 (7-18) mg/dl Creatinine 1.10 (0.6-1.2) mg/dl Est Cr Clr Drug Dosing 56.5 ml/min Est GFR ( Amer) 58.9 Est GFR (Non-Af Amer) 50.8 BUN/Creatinine Ratio 12.8 (10-20) Glucose 121 H (70-99) mg/dl Calcium 9.9 (8.5-10.1) mg/dl Phosphorus (2.5-4.9) mg/dl Magnesium 1.8 (1.8-2.4) mg/dl Total Bilirubin 0.6 (0.2-1) mg/dl AST 34 (15-37) U/L ALT 39 (12-78) U/L Alkaline Phosphatase 84 (45-117) U/L Troponin I < 0.015 (0-0.045) ng/ml NT-Pro-B Natriuret Pep 62 (0-900) pg/ml Total Protein 7.4 (6.4-8.2) gm/dl Albumin 3.8 (3.4-5.0) gm/dl Globulin 3.6 (2.5-4.0) gm/dl Albumin/Globulin Ratio 1.1 (0.9-2) Influenza Type A (PCR) (Neg) Influenza Type B (PCR) (Neg) 07/29/19 07/29/19 Range/Units 10:20 Unknown WBC (4.8-10.8) K/uL RBC (4.2-5.4) M/uL Hgb (12.0-16.0) g/dL Hct (37-47) % MCV (80-100) fL MCH (25-34) pg MCHC (32-36) g/dL RDW Std Deviation (36.4-46.3) fL RDW Coeff of Karel (11.5-14.5) % Plt Count (130-400) K/uL MPV (7.4-10.4) fL Immature Gran % (Auto) % Neut % (Auto) % Lymph % (Auto) % [place] % (Auto) % Eos % (Auto) % Baso % (Auto) % Immature Gran # (Auto) (0.00-0.02) K/uL Neut # (Auto) (1.4-6.5) K/uL Lymph # (Auto) (1.2-3.4) K/uL [place] # (Auto) (0.11-0.59) K/uL Eos # (Auto) (0-0.5) K/uL Baso # (Auto) (0-0.2) K/uL PT (9.0-12.0) Seconds INR (0.9-1.1) APTT (21.0-31.0) Seconds PTT Ratio Sodium (136-145) mmol/L Potassium (3.5-5.1) mmol/L Chloride (98-107) mmol/L Carbon Dioxide (21-32) mmol/L Anion Gap (3-11) BUN (7-18) mg/dl Creatinine (0.6-1.2) mg/dl Est Cr Clr Drug Dosing ml/min Est GFR ( Amer) Est GFR (Non-Af Amer) BUN/Creatinine Ratio (10-20) Glucose (70-99) mg/dl Calcium (8.5-10.1) mg/dl Phosphorus 2.4 L (2.5-4.9) mg/dl Magnesium (1.8-2.4) mg/dl Total Bilirubin (0.2-1) mg/dl AST (15-37) U/L ALT (12-78) U/L Alkaline Phosphatase (45-117) U/L Troponin I (0-0.045) ng/ml NT-Pro-B Natriuret Pep (0-900) pg/ml Total Protein (6.4-8.2) gm/dl Albumin (3.4-5.0) gm/dl Globulin (2.5-4.0) gm/dl Albumin/Globulin Ratio (0.9-2) Influenza Type A (PCR) Neg for Influ A (Neg) Influenza Type B (PCR) Neg for Influ B (Neg) BMP 07/29/19 10:20 Sodium 133 L Potassium 4.2 Chloride 99 Carbon Dioxide 27 BUN 14 Creatinine 1.10 Glucose 121 H Calcium 9.9 Cardiac Enzymes 07/29/19 Range/Units 10:20 Troponin I < 0.015 (0-0.045) ng/ml Liver Function 07/29/19 Range/Units 10:20 Total Bilirubin 0.6 (0.2-1) mg/dl AST 34 (15-37) U/L ALT 39 (12-78) U/L Alkaline Phosphatase 84 (45-117) U/L Albumin 3.8 (3.4-5.0) gm/dl Diagnostic Findings CXR: IMPRESSION: 1. Cardiomegaly without overt pulmonary edema. 2. Emphysema with chronic interstitial coarsening. Supervising Physician Co-Signing Physician Notes 68yo F with a PMH of COPD and IPF, chronic respiratory failure on 2L NC O2, HTN, CKD III, depression, anxiety, PTSD, hypothyroidism and other medical problems listed below who presents with worsening shortness of breath. History and physical exam performed by me. Detailed history documented by Nancy Orr PA-C History significant for worsening, dry cough associated with chest pain, dyspnea on exertion, chronic nasal oxygen supplementation at 2l/min On physical exam, General: Elderly woman in no acute distress with intermittent cough Eyes: PERRL, conjunctivae normal, not pale, anicteric sclerae, EOM intact bilaterally ENMT: External ear and nose normal, oropharynx normal Neck: Normal visual inspection, no tracheal deviation, no swelling noted Respiratory: Normal respiratory effort, no respiratory distress, generalized wheezing, no crackles Cardiovascular: Pulse is RRR. S1 S2. Trace pedal edema Chest (Breasts): Chest: normal inspection of chest Gastrointestinal (Abdomen): Abdomen is not distended, soft, non-tender to palpation, no guarding, no palpable hepatosplenomegaly, normal bowel sounds Musculoskeletal: No cyanosis or clubbing, all extremities motor strength 5/5 Genitourinary: No CVA tenderness Skin: No rash noted on gross inspection, No ulcers noted Neurologic: Alert and oriented x 3, No focal weakness, sensation grossly intact Psychiatric: Euthymic affect, no depressed affect Lymphatic: No cervical lymphadenopathy CHEST XRAY FINDINGS: Cardiac silhouette is enlarged. Emphysema with chronic interstitial coarsening. Mild chronic blunting of the costophrenic angles without pneumothorax, large pleural effusion, overt pulmonary edema or new airspace consolidation. Degenerative changes of the shoulders and spine. IMPRESSION: 1. Cardiomegaly without overt pulmonary edema. 2. Emphysema with chronic interstitial coarsening. Flu - negative COPD Exacerbations Got solumedrol in ER Continue duonebs Azithromycin Will need prednisone taper as last exacerbation last month, patient required long taper. Stated cough improved and then started getting worse over the past few weeks. Needs pulmonology follow up Patient is not very sure about some of her medications. Stated she uses clonidine as needed for insomnia Per EPIC, cardizem documented as ac hs, likely erroneous Continue cardizem at 120mg bid for now Counselled extensively on need for proper medication adherence Will need clarification of these meds prior to discharge Other plan as detailed above (1) HTN (hypertension) Hypertension type: essential hypertension Qualified Code(s): I10 - Essential (primary) hypertension
[2019-07-29] MEDS ORDERED: AZITHROMYCIN 250 MG TAB PO ONE (15:04)
[2019-07-29 15:08] LABS: Influenza A virus by PCR Neg for Influ A (Neg); Influenza B virus by PCR Neg for Influ B (Neg)
[2019-07-29] MEDS ORDERED: BENZONATATE 100 MG CAPSULE PO PRN (15:20)
[2019-07-29] MEDS ORDERED: ACETAMINOPHEN 325 MG TAB ONE (15:35)
[2019-07-29] MEDS: ALBUT/IPRATROP 3MG/0.5MG NEB 3 ML VIAL NEB SCH ×2 (15:36→19:18)
[2019-07-29] MEDS: guaiFENesin SUGAR FREE 100 MG/5 ML UDC PO PRN ×2 (15:39→22:28)
[2019-07-29] MEDS ORDERED: dilTIAZem HCl 60 MG TAB PO SCH (16:30)
[2019-07-29] MEDS: DONEPEZIL HCL 5 MG TAB PO SCH (16:40)
--- NOTE | 2019-07-29 17:16 | Emergency Department Note ---
Entered by Sonia Lamb acting as a scribe for ED Provider Note CHIEF COMPLAINT: Shortness of Breath/ Dyspnea HISTORY OF PRESENT ILLNESS: The patient is a 68 year old female who presents to the Emergency Room with complaints of worsening shortness of breath starting a few days ago. The patient states that she has a history of COPD and CHF. She states that over the last few weeks she has had worsening shortness of breath and an increased cough, but over the last few days, it has been significantly worse. She states that today she just felt like she cannot get enough air so she called the ambulance. She notes that she has been having chest pain with her shortness of breath and that walking around makes the pain worse. The patient notes that she is on 2L oxygen at all times and nebulizer treatments, but it is not helping. The patient complains of bilateral leg cramps, bilateral leg redness, and bilateral leg swelling. She notes that her blood pressure was also elevated at 200 something, but took a Clonidine and it came down. The patient denies diarrhea. Pt denies LOC, headache, fevers, chills, diaphoresis, visual changes, neck pain, nausea, vomiting, abdominal pain, back pain, melena, hematochezia, urinary symptoms, numbness, weakness, lymphadenopathy, rash, or other complaints. REVIEW OF SYSTEMS: See HPI for pertinent positives and negatives. A total of ten systems were reviewed and were otherwise negative. PMHx/PSHx: The patient has a history of anxiety, depression, CHF, COPD, GI bleed, breast cancer, HTN, HLD, hypothyroid, mild cognitive impairment, pneumonia, prediabetes, restless leg syndrome, sinusitis, and a bilateral mastectomy. SOCIAL HISTORY: Patient lives at home alone. She is and a former smoker. She denies alcohol use and substance use. PHYSICAL EXAM: GENERAL: Awake, alert, well-appearing, in no distress HENT: Normocephalic, atraumatic. Oropharynx unremarkable. EYES: PERRL. Normal conjunctiva. Sclera non-icteric. NECK: Inspection normal. Non-tender. Supple. No nuchal rigidity. FROM. No masses. RESPIRATORY: Clear to auscultation. No wheezes. No rales. Increased work of breathing. . CARDIAC: Normal rate. Normal rhythm. No murmurs. No rubs. Extremities warm and well perfused. Pulses equal. No JVD. GI: Soft, non-distended. No tenderness to palpation. No rebound or guarding. No masses. RECTAL: Deferred. MUSCULOSKELETAL: Atraumatic. Chest examination reveals no tenderness. The back is symmetrical on inspection without obvious abnormality. There is no CVA tenderness to palpation. No joint edema. LOWER EXTREMITIES: Calves are equal size bilaterally and non-tender. 1+ lower extremity edema. No discoloration. NEURO: Normal sensorium. No sensory or motor deficits noted. SKIN: No rash or jaundice noted. EMERGENCY DEPARTMENT COURSE: 1044: The patient was evaluated in room C6, and a complete history and physical examination were performed. 1253: I reevaluated the patient and updated her on her test results. I discussed the treatment plan with her. She verbally agrees and understands. 1321: I discussed the patient's case with Nancy Orr PA-C- [facility]. She will evaluate the patient for further management under Dr. Calderon's service. MEDICAL DECISION MAKING: Triage Nursing notes reviewed and agree them. The patient's history was concerning for shortness of breath. Differential diagnosis: Etiologies such as pneumonia, COPD, reactive airway disease, CHF, cardiac ischemia, pulmonary embolism, pneumothorax, musculoskeletal, infections, gastrointestinal, as well as others were entertained. Physical examination: As above. ER treatment provided: DuoNeb x2 IV Solu-Medrol On reassessment the patient felt somewhat better.. Diagnostic interpretation by me: The electrocardiogram was negative for ischemic change. The labs revealed an unremarkable CBC chemistry panel. Troponin negative. Imaging studies: Chest x-ray negative for acute process. I suspect the patient is having a COPD exacerbation. She still feels very short of breath and not comfortable going home. She does also have a history of interstitial lung disease. I discussed further management in the hospital. Patient was in agreement. Consultation: A consultation was placed with the hospitalist. The case was discussed and diagnostics were reviewed. The patient was evaluated in the ER for further treatment. MACHINE RIVETER: Continuous Cardiac Monitoring: An order was placed for continuous cardiac monitoring. The monitor shows a rate of 63 with normal sinus rhythm. IMPRESSION: Shortness of Breath, Substernal Chest Pain PLAN: Being Evaluated by a Hospitalist The scribe's documentation has been prepared under my direction and personally reviewed by me in its entirety. I confirm that the note above accurately reflects all work, treatment, procedures, and medical decision making performed by me. Impression & Plan Shortness of breath, Substernal chest pain Past Med/Surg History Medical History Anxiety and depression (Chronic) Axillary lymphadenopathy Chronic respiratory failure with hypoxia (Chronic) CKD (chronic kidney disease), stage III COPD (chronic obstructive pulmonary disease) History of breast cancer HTN (hypertension) (Chronic) Hyperlipidemia Hypothyroidism (Chronic) ILD (interstitial lung disease) (Acute) Mild cognitive impairment BERNA (obstructive sleep apnea) Prediabetes Restless legs syndrome Surgical History S/P mastectomy S/P mastectomy, bilateral (Resolved) Family History (Updated 07/29/19 @ 15:38 by Nancy Orr PA-C) Sister Myocardial infarction Sister Stroke Social History Preferred Language: Khmer Communication Ability: Effective Cutter Operator Required: No Beliefs That Will Affect Care: None marital status: Current Living Situation: Alone Other Information That Helps Us Care for You: No Feels Safe at Home: Yes Safety Concerns: Feels Safe At This Time Smoking Status: Former smoker Do You Dip or Chew Tobacco: No ; Number of Years Since Quit: 9 ; Second Hand Exposure: No ; Tobacco Cessation Education Requested by Patient: No Hx Alcohol Use: No Hx Substance Use: No Results & Data Vital Signs Vital Signs - 24 hr 07/29/19 10:09 07/29/19 10:19 07/29/19 10:20 Temperature 37.1 C Temperature Source Oral Pulse Rate 63 68 Pulse Rate [Apical] Pulse Rate from SpO2 Sensor 63 Respiratory Rate 19 20 Blood Pressure 164/80 H 164/80 H Blood Pressure Mean 98 108 Pulse Oximetry 98 98 98 Oxygen Delivery Method Nasal Cannula Nasal Cannula Oxygen Flow Rate 2 2 Sepsis Recent Fever Within 48 Hours No Sepsis New/Unexplained Change in Mental Status No Sepsis Action Taken by Nursing No Action Required 07/29/19 10:32 07/29/19 11:20 07/29/19 11:21 Temperature Temperature Source Pulse Rate 64 Pulse Rate [Apical] 65 Pulse Rate from SpO2 Sensor 64 73 Respiratory Rate 23 18 Blood Pressure Blood Pressure Mean Pulse Oximetry 98 97 95 Oxygen Delivery Method Nasal Cannula Oxygen Flow Rate 2 Sepsis Recent Fever Within 48 Hours Sepsis New/Unexplained Change in Mental Status Sepsis Action Taken by Nursing 07/29/19 11:30 07/29/19 12:00 07/29/19 12:30 Temperature Temperature Source Pulse Rate 76 86 83 Pulse Rate [Apical] Pulse Rate from SpO2 Sensor 75 78 84 Respiratory Rate 17 21 21 Blood Pressure Blood Pressure Mean Pulse Oximetry 94 95 92 Oxygen Delivery Method Oxygen Flow Rate Sepsis Recent Fever Within 48 Hours Sepsis New/Unexplained Change in Mental Status Sepsis Action Taken by Nursing 07/29/19 13:00 07/29/19 13:02 07/29/19 13:30 Temperature Temperature Source Pulse Rate 67 67 Pulse Rate [Apical] 68 Pulse Rate from SpO2 Sensor 63 71 Respiratory Rate 19 18 19 Blood Pressure Blood Pressure Mean Pulse Oximetry 96 95 94 Oxygen Delivery Method Nasal Cannula Oxygen Flow Rate 2 Sepsis Recent Fever Within 48 Hours Sepsis New/Unexplained Change in Mental Status Sepsis Action Taken by Nursing 07/29/19 13:46 Temperature Temperature Source Pulse Rate 84 Pulse Rate [Apical] Pulse Rate from SpO2 Sensor 79 Respiratory Rate Blood Pressure Blood Pressure Mean Pulse Oximetry 97 Oxygen Delivery Method Oxygen Flow Rate Sepsis Recent Fever Within 48 Hours Sepsis New/Unexplained Change in Mental Status Sepsis Action Taken by [facility] Medications Current Medication List: was personally reviewed by me Laboratory Data Attestation: I reviewed the patient's lab results. Result diagrams: 07/29/19 10:20 07/29/19 10:20 Lab Results 07/29/19 07/29/19 07/29/19 Range/Units 10:20 10:20 10:20 WBC 7.50 (4.8-10.8) K/uL RBC 4.24 (4.2-5.4) M/uL Hgb 12.8 (12.0-16.0) g/dL Hct 37.6 (37-47) % MCV 88.7 (80-100) fL MCH 30.2 (25-34) pg MCHC 34.0 (32-36) g/dL RDW Std Deviation 47.3 H (36.4-46.3) fL RDW Coeff of Karel 14.6 H (11.5-14.5) % Plt Count 238 (130-400) K/uL MPV 9.7 (7.4-10.4) fL Immature Gran % (Auto) 0.3 % Neut % (Auto) 68.7 % Lymph % (Auto) 21.3 % [place] % (Auto) 7.7 % Eos % (Auto) 1.5 % Baso % (Auto) 0.5 % Immature Gran # (Auto) 0.02 (0.00-0.02) K/uL Neut # (Auto) 5.15 (1.4-6.5) K/uL Lymph # (Auto) 1.60 (1.2-3.4) K/uL [place] # (Auto) 0.58 (0.11-0.59) K/uL Eos # (Auto) 0.11 (0-0.5) K/uL Baso # (Auto) 0.04 (0-0.2) K/uL PT 10.3 (9.0-12.0) Seconds INR 1.0 (0.9-1.1) APTT 25.0 (21.0-31.0) Seconds PTT Ratio 0.9 Sodium 133 L (136-145) mmol/L Potassium 4.2 (3.5-5.1) mmol/L Chloride 99 (98-107) mmol/L Carbon Dioxide 27 (21-32) mmol/L Anion Gap 7.0 (3-11) BUN 14 (7-18) mg/dl Creatinine 1.10 (0.6-1.2) mg/dl Est Cr Clr Drug Dosing 56.5 ml/min Est GFR ( Amer) 58.9 Est GFR (Non-Af Amer) 50.8 BUN/Creatinine Ratio 12.8 (10-20) Glucose 121 H (70-99) mg/dl Calcium 9.9 (8.5-10.1) mg/dl Phosphorus (2.5-4.9) mg/dl Magnesium 1.8 (1.8-2.4) mg/dl Total Bilirubin 0.6 (0.2-1) mg/dl AST 34 (15-37) U/L ALT 39 (12-78) U/L Alkaline Phosphatase 84 (45-117) U/L Troponin I < 0.015 (0-0.045) ng/ml NT-Pro-B Natriuret Pep 62 (0-900) pg/ml Total Protein 7.4 (6.4-8.2) gm/dl Albumin 3.8 (3.4-5.0) gm/dl Globulin 3.6 (2.5-4.0) gm/dl Albumin/Globulin Ratio 1.1 (0.9-2) 07/29/19 Range/Units 10:20 WBC (4.8-10.8) K/uL RBC (4.2-5.4) M/uL Hgb (12.0-16.0) g/dL Hct (37-47) % MCV (80-100) fL MCH (25-34) pg MCHC (32-36) g/dL RDW Std Deviation (36.4-46.3) fL RDW Coeff of Karel (11.5-14.5) % Plt Count (130-400) K/uL MPV (7.4-10.4) fL Immature Gran % (Auto) % Neut % (Auto) % Lymph % (Auto) % [place] % (Auto) % Eos % (Auto) % Baso % (Auto) % Immature Gran # (Auto) (0.00-0.02) K/uL Neut # (Auto) (1.4-6.5) K/uL Lymph # (Auto) (1.2-3.4) K/uL [place] # (Auto) (0.11-0.59) K/uL Eos # (Auto) (0-0.5) K/uL Baso # (Auto) (0-0.2) K/uL PT (9.0-12.0) Seconds INR (0.9-1.1) APTT (21.0-31.0) Seconds PTT Ratio Sodium (136-145) mmol/L Potassium (3.5-5.1) mmol/L Chloride (98-107) mmol/L Carbon Dioxide (21-32) mmol/L Anion Gap (3-11) BUN (7-18) mg/dl Creatinine (0.6-1.2) mg/dl Est Cr Clr Drug Dosing ml/min Est GFR ( Amer) Est GFR (Non-Af Amer) BUN/Creatinine Ratio (10-20) Glucose (70-99) mg/dl Calcium (8.5-10.1) mg/dl Phosphorus 2.4 L (2.5-4.9) mg/dl Magnesium (1.8-2.4) mg/dl Total Bilirubin (0.2-1) mg/dl AST (15-37) U/L ALT (12-78) U/L Alkaline Phosphatase (45-117) U/L Troponin I (0-0.045) ng/ml NT-Pro-B Natriuret Pep (0-900) pg/ml Total Protein (6.4-8.2) gm/dl Albumin (3.4-5.0) gm/dl Globulin (2.5-4.0) gm/dl Albumin/Globulin Ratio (0.9-2) Administered Medications Albuterol (Duoneb) 3 ml NEB QIDR [place] Stop: 08/28/19 15:03 Last Admin: 07/29/19 15:36 Dose: 3 ml Documented by: [id number] Donepezil HCl (Aricept) 5 mg PO QDD [place] Stop: 08/28/19 16:29 Last Admin: 07/29/19 16:40 Dose: 5 mg Documented by: [id number] Guaifenesin (Robitussin Sugar Free Syrup) 100 mg PO Q6H PRN PRN Reason: Cough Stop: 08/28/19 15:03 Last Admin: 07/29/19 15:39 Dose: 100 mg Documented by: [id number] Miscellaneous (Order Awaiting Action) 1 ea N/A QS [facility] Stop: 08/28/19 15:59 Last Admin: 07/29/19 16:32 Dose: Not Given Documented by: [id number] Discontinued Medications Acetaminophen (Tylenol) Confirm Administered Dose 650 mg .ROUTE .STK-MED ONE Stop: 07/29/19 15:36 Last Admin: 07/29/19 15:39 Dose: 650 mg Documented by: [id number] Albuterol (Duoneb) 3 ml NEB NOW STA Stop: 07/29/19 10:50 Last Admin: 07/29/19 11:19 Dose: 3 ml Documented by: [id number] Albuterol (Duoneb) 3 ml NEB NOW STA Stop: 07/29/19 12:47 Last Admin: 07/29/19 13:01 Dose: 3 ml Documented by: [id number] Azithromycin (Zithromax) 500 mg PO NOW ONE Stop: 07/29/19 15:05 Last Admin: 07/29/19 16:40 Dose: 500 mg Documented by: [id number] Methylprednisolone (Solumedrol) 125 mg IV NOW STA Stop: 07/29/19 13:23 Last Admin: 07/29/19 13:43 Dose: 125 mg Documented by: [id number] Imaging Data Radiologist's Impression: Radiology results as stated below per my review and the radiologist's interpretation: XR chest 1V portable HISTORY: 68 years-old Female Dyspnea acute shortness of breath COMPARISON: Chest CT 04/03/2019, chest radiograph 08/24/2018 TECHNIQUE: Portable AP view of the chest FINDINGS: Cardiac silhouette is enlarged. Emphysema with chronic interstitial coarsening. Mild chronic blunting of the costophrenic angles without pneumothorax, large pleural effusion, overt pulmonary edema or new airspace consolidation. Degenerative changes of the shoulders and spine. IMPRESSION: 1. Cardiomegaly without overt pulmonary edema. 2. Emphysema with chronic interstitial coarsening. ACT 112: Negative or not required by law. The above report was generated using voice recognition software. It may contain grammatical, syntax or spelling errors. Electronically signed by: Marck Olivares M.D. 07/29/2019 11:08 AM ECG Data Attestation: I personally reviewed and interpreted this ECG as follows: Indication: + SOB/dyspnea Rate (beats per minute): 61 Rhythm: normal sinus ECG Intervals/blocks: + Normal QRS ECG [place]: + Normal ECG ST segments: no ST depression and no ST elevation ECG Findings: + LVH; no PACs and no PVCs Blood Pressure Blood Pressure Findings: Elevated blood pressure Blood Pressure Disposition: Referred to patients primary care provider Discharge Plan Visit Data *Final* Discharge Date/Time: 07/29/19 14:31 Chief Complaint: Shortness of Breath/Dyspnea Stated Complaint: SOB ED Provider: Jose Sinha Discharge Problem: Shortness of breath, Substernal chest pain Patient Disposition: Admitted As Inpatient Discharge Instructions Interventions: ED Discharge Assessment Last Done: 07/29/19 14:31 The scribe's documentation has been prepared under my direction and personally reviewed by me in its entirety. I confirm that the note above accurately reflects all work, treatment, procedures, and medical decision making performed by me.
--- NOTE | 2019-07-29 18:18 | Electrocardiogram Report ---
Test Reason : Blood Pressure : / mmHG Vent. Rate : 061 BPM Atrial Rate : 061 BPM P-R Int : 162 ms QRS Dur : 088 ms QT Int : 406 ms P-R-T Axes : 003 -23 026 degrees QTc Int : 408 ms Normal sinus rhythm Moderate voltage criteria for LVH, may be normal variant Borderline ECG When compared with ECG of 09-SEP-2018 12:24, No significant change was found Confirmed by Jordin Bunn ([id number]) on 07/29/2019 6:18:26 PM Referred By: REFERRED SELF Confirmed By:Ryley Bunn
[2019-07-29] MEDS: ACETAMINOPHEN 325 MG TAB PO PRN (20:30)
[2019-07-29] MEDS: cloNIDine HCL 0.1 MG TAB PO SCH (21:00)
[2019-07-29] MEDS: TRAZODONE HCL 50 MG TAB PO SCH (21:01)
[2019-07-29] MEDS: ENOXAPARIN INJ 40 MG/0.4 ML SYR SQ SCH (21:02)
[2019-07-29] MEDS: dilTIAZem HCl 60 MG TAB PO SCH (21:02)
[2019-07-29] MEDS: MONTELUKAST SODIUM 10 MG TABLET PO SCH (21:02)
[2019-07-29] MEDS: BusPIRone 15 MG TAB PO SCH (21:05)
[2019-07-29] MEDS: ALBUTEROL HFA 8 GM INHALER INH PRN (21:09)
[2019-07-29 23:37] LABS: Appearance Urine Clear (Clear); Bilirubin Urine Negative (Negative); Blood Urine Negative (Negative); Color Urine Yellow; Glucose Urine UA Negative (Negative); Ketones Urine Negative (Negative); Leukocyte Esterase Urine Negative (Negative); Nitrite Urine Negative (Negative); Protein Urine Negative (Negative); Specific Gravity Urine 1.019 (1.000-1.030); Urobilinogen Urine Negative (Negative)
[2019-07-30] MEDS: guaiFENesin SUGAR FREE 100 MG/5 ML UDC PO PRN ×2 (04:14→13:03)
[2019-07-30] MEDS: ALBUTEROL HFA 8 GM INHALER INH PRN (04:31)
[2019-07-30] MEDS: PANTOprazole 40 MG TAB PO SCH (06:09)
[2019-07-30] MEDS: LEVOTHYROXINE SODIUM 25 MCG TABLET PO SCH (06:09)
[2019-07-30 06:46] LABS: Hematocrit (blood only) 33.6 % (37-47); Hemoglobin 11.7 g/dL (12.0-16.0); Mean Corpuscular Hemoglobin 30.6 pg (25-34); Mean Corpuscular Hgb Conc 34.8 g/dL (32-36); Mean Platelet Volume 9.3 fL (7.4-10.4); Platelet Count 230 K/uL (130-400); RDW Coefficient of Variation 14.3 % (11.5-14.5); RDW Standard Deviation 46.4 fL (36.4-46.3); Red Blood Count 3.82 M/uL (4.2-5.4); White Blood Count 9.36 K/uL (4.8-10.8)
[2019-07-30] MEDS: ALBUT/IPRATROP 3MG/0.5MG NEB 3 ML VIAL NEB SCH ×4 (06:58→18:39)
[2019-07-30 07:44] LABS: BUN Creatinine Ratio 19.9 (10-20); Calcium 9.8 mg/dl (8.5-10.1); Creatinine Clr Calc Pharmacy 53.1 ml/min; Est GFR (African American) 58.9; Est GFR (Non-African American) 50.8
[2019-07-30] MEDS: ACETAMINOPHEN 325 MG TAB PO PRN ×2 (07:46→11:30)
[2019-07-30] MEDS: FLUTICASONE/VILANTEROL 100/25MCG 14 PUFFS/INHALER INH SCH (07:46)
[2019-07-30] MEDS: dilTIAZem HCl 60 MG TAB PO SCH ×2 (07:47→21:07)
[2019-07-30] MEDS: BusPIRone 15 MG TAB PO SCH ×2 (07:47→21:05)
[2019-07-30] MEDS: LOSARTAN POTASSIUM 50 MG TAB PO SCH (07:48)
[2019-07-30] MEDS: LORATADINE 10 MG TAB PO SCH (07:48)
[2019-07-30] MEDS: ASPIRIN 81 MG ECTAB PO SCH (07:49)
[2019-07-30] MEDS: hydroCHLOROthiazide 25 MG TAB PO SCH (07:49)
[2019-07-30] MEDS: FLUTICASONE PROPIONATE NA SPR 16 GM BTL NAE SCH (07:50)
[2019-07-30] MEDS: FUROSEMIDE 20 MG TAB PO SCH (07:51)
[2019-07-30] MEDS: ATORVASTATIN 40 MG TAB PO SCH (07:51)
[2019-07-30] MEDS: CEROVITE ADV FORMULA TAB PO SCH (07:52)
[2019-07-30] MEDS: FAMOTIDINE 20 MG TAB PO SCH (07:52)
[2019-07-30] MEDS: AZITHROMYCIN 250 MG TAB PO SCH (07:53)
[2019-07-30] MEDS: SERTRALINE HCL 100 MG TABLET PO SCH (07:54)
[2019-07-30] MEDS ORDERED: BUDESONIDE 0.5 MG/2 ML VIAL (PULMICORT) INH SCH (09:00)
[2019-07-30] MEDS ORDERED: PRAMIPEXOLE DIHYDROCHLO 0.25 MG TAB PO SCH (09:00)
[2019-07-30] MEDS ORDERED: predniSONE 20 MG TAB PO SCH (09:00)
[2019-07-30] MEDS ORDERED: KETOROLAC TROMETHAMINE 15 MG/ML VIAL IV ONE (13:20)
[2019-07-30] MEDS: DONEPEZIL HCL 5 MG TAB PO SCH (16:07)
[2019-07-30] MEDS ORDERED: COUGH DROP (SUGAR FREE) LOZ 24 LOZ/1 BOX BUCCAL ONE (16:08)
--- NOTE | 2019-07-30 17:03 | Hospitalist Progress Note ---
Date of Service July 30, 2019 Assessment & Plan (1) COPD exacerbation: (2) Chronic respiratory failure with hypoxia: This is a 68yo F with a PMH of COPD and IPF, chronic respiratory failure on 2L NC O2, HTN, CKD III, depression, anxiety, PTSD, hypothyroidism and other medical problems listed below who presents with progressive SOB x 1 month who was found to have COPD exacerbation. -Progressively worsening cough, wheezing and dyspnea on exertion in the setting of COPD and IPF -At oxygen baseline saturating 97% on 2L -CXR with cardiomegaly without overt pulmonary edema. Emphysema with chronic interstitial coarsening. No evidence of pneumonia -Given albuterol breathing treatment x 2, IV solu-medrol 125mg x 1 -admitting team on 07/29/2019 starting azithromycin course, prednisone 40mg x 5 days, duonebs QIDR, cough suppressant, Continue albuterol inhaler PRN, Dulera, Singulair -07/30/2019: patient does not appear have more supplementary oxygen requirements but appears to require further hospital medications and monitoring for the arriola boptimal expansion and exhalation on chest exam and persistent cough. have asked pulmonary consult to see the patient and any further recommendations for optimization of breathing and symptoms beyond current treatment (3) HTN (hypertension): Normotensive. Continue hctz, losartan (4) Anxiety and depression: Continue sertraline (5) CKD (chronic kidney disease), stage III: Continue to monitor (6) History of breast cancer: S/p mastectomy and chemo treatment -In remission (7) Insomnia: -Continue Trazodone -Was taking clonidine HS PRN for insomnia avoid due to actions of clonidine on blood pressure (8) BERNA (obstructive sleep apnea): Intolerant to CPAP DVT Ppx: SQ lovenox Code status: FULL PCP: Siddharthali Subjective Patient has cough and tightness of the chest when asked to take deep breaths on exam. supplementary oxygen requirements generally at 2 liter/minute which is her baseline oxygen use. speaks in full sentences. no abdomen pain. no nausea. no vomiting. no dizziness. no headache. Review of Systems Review of Systems: All systems reviewed & are unremarkable except as noted in HPI & below Physical Exam Constitutional: comfortable Eyes: PERRL, conjunctivae normal, anicteric sclerae EOM intact bilaterally ENMT: external ear and nose normal, oropharynx normal Neck: normal visual inspection Respiratory: + cough and able to speak in complete sentences less than optimal air inhalation and exhalation on lung exam Cardiovascular: Rate/Rhythm: regular rate and regular rhythm Gastrointestinal (Abdomen): normal bowel sounds, soft, nontender, no hepatosplenomegaly Musculoskeletal: Head/Neck/Chest: normocephalic and head atraumatic Neurologic: PERRL, EOMI, accommodation nl, no face palsy, no dysarthria CN's II-XI intact bilaterally Psychiatric: A+Ox3, euthymic affect Results & Data Vital Signs (Past 12 Hours) Vital Signs Temp Pulse Pulse Pulse Resp BP Pulse Ox 07/30/19 15:59 36.7 C 68 18 127/48 L 98 07/30/19 15:05 74 16 97 07/30/19 11:06 36.7 C 71 20 123/44 L 98 07/30/19 10:52 71 16 97 07/30/19 09:40 69 07/30/19 07:23 36.3 C L 110 H 22 167/73 H 92 07/30/19 07:01 74 14 94 (1) HTN (hypertension) Hypertension type: essential hypertension Qualified Code(s): I10 - Essential (primary) hypertension
[2019-07-30] MEDS ORDERED: SODIUM PHOSPHATE 3 MMOL/1 ML INFUSION IV STA (18:20)
[2019-07-30] MEDS ORDERED: SODIUM PHOSPHATE 15 MMOL in SODIUM CHLORIDE 0.9% 250 ML IV STA (18:28)
--- NOTE | 2019-07-30 18:28 | Pulmonary Consultation ---
Date of Consultation July 30, 2019 Assessment & Plan (1) Chronic respiratory failure with hypoxia: -- Acute on chronic hypoxic respiratory failure Likely sec to COPD exacerbation, influenza negative Continue with inhaled bronchodilators, steroids (will change to prednisone 40 mg twice daily right now), antibiotics --> agree with azithromycin QTC 408, add nebulized Mucomyst DC budesonide as patient is already on Breo while in the hospital Maintain SPO2 between 88 to 92% BiPAP nightly and as needed shortness of breath --COPD with severe emphysema Patient is on Dulera and Spiriva at home which is optimal for her would continue with the same on discharge. --Interstitial lung disease Biopsy done in January 2018 which showed interstitial fibrosis Likely IPF Patient follows up with pulmonary as an outpatient Given her extent of emphysema on top of IPF I do not think she will be a good candidate for treatment. --BERNA Patient noncompliant with CPAP Importance of CPAP explained to the patient. Please note the above document was generated using voice recognition software. It may contain grammatical, syntax or spelling errors. (2) Emphysema with chronic bronchitis: (3) ILD (interstitial lung disease): History of Present Illness Attending Physician: Lance Edwards MD History of Present Illness 68-year-old female with past medical history of COPD/emphysema on home O2 2 L, BERNA not compliant with CPAP, history of IPF diagnosed with lung biopsy couple of years ago, hypothyroidism, hypertension comes to the hospital with complaints of shortness of breath and chest congestion which has been going on since approximately 2 weeks progressively getting worse associated with wheezing. Patient states she tries to cough but nothing comes out. Subjective chills, no fever. Denies any chest pain, no dizziness, no headache, no nausea, no vomiting, no dysuria, no diarrhea. Denies any runny nose or tearing from the eyes. No upper respiratory infections. Denies any night sweats, no weight loss. No hemoptysis. Denies any abdominal pain. No recent travel history. Patient got flu shot this season. Social history: Greater than [id number] smoking history, quit in 2009, no illicit drug use, no alcohol use. Patient had multiple jobs when she used to work. Possible asbestos exposure but only for 2 years. 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 Patient has history of bilateral mastectomy for cancer. She also had biopsy of the lung on the right side which showed interstitial fibrosis on 01/20/2018. No pets at home. Patient follows up with Dr. Waggoner. Allergies Allergy/AdvReac Type Severity Reaction Status Date / Time hydralazine Allergy Intermediate joint pain Verified 07/29/19 11:19 tetracycline Allergy Mild RASH Verified 07/29/19 11:19 amlodipine AdvReac Mild Edema. Verified 07/29/19 11:19 Home Medications Home Medications Medication Instructions Recorded Confirmed Type levothyroxine [Synthroid] 62.5 mcg PO QAM 08/21/18 07/29/19 History fluticasone propionate [Flonase 2 sprays INTRANASAL DAILY 09/09/18 07/29/19 History Allergy Relief] Oxygen Home #1 ea 03/09/19 04/24/19 History aspirin 81 mg tablet,delayed 81 mg PO DAILY #30 tab 03/09/19 07/29/19 History release inhalational spacing device #1 ea 03/09/19 04/24/19 History tiotropium bromide 2.5 2 puffs INHALATION DAILY #1 gm 03/09/19 07/29/19 History mcg/actuation mist for inhalation atorvastatin 40 mg tablet 40 mg PO DAILY 03/12/19 07/29/19 History furosemide 20 mg tablet 20 mg PO QAM #30 tab 03/14/19 07/29/19 Rx albuterol sulfate 2.5 mg INHALATION Q4H PRN 07/29/19 07/29/19 History albuterol sulfate [Ventolin HFA] 2 inha INH Q4H PRN 07/29/19 07/29/19 History azelastine 1 spray INTRANASAL BID 07/29/19 07/29/19 History benzonatate [Tessalon Perles] 100 mg PO TID PRN 07/29/19 07/29/19 History budesonide [Pulmicort] 0.5 mg INHALATION DAILY 07/29/19 07/29/19 History buspirone 15 mg PO BID 07/29/19 07/29/19 History cholecalciferol (vitamin D3) 50,000 unit PO WK 07/29/19 07/29/19 History [Vitamin D3] clonidine HCl [Catapres] 0.1 mg PO HS PRN 07/29/19 07/29/19 History codeine-guaifenesin [G Tussin AC] 5 ml PO TID PRN 07/29/19 07/29/19 History diltiazem HCl [Cardizem] 120 mg PO BID 07/29/19 07/29/19 History donepezil [Aricept] 5 mg PO UD 07/29/19 07/29/19 History famotidine [Pepcid] 20 mg PO DAILY 07/29/19 07/29/19 History hydrochlorothiazide 12.5 mg PO DAILY 07/29/19 07/29/19 History loratadine [Claritin] 10 mg PO DAILY 07/29/19 07/29/19 History losartan [Cozaar] 100 mg PO QAM 07/29/19 07/29/19 History mometasone-formoterol [Dulera] 2 puff INHALATION BID 07/29/19 07/29/19 History montelukast [Singulair] 10 mg PO HS 07/29/19 07/29/19 History [id number]-bdr-eljo-FA-lutein 1 tab PO DAILY 07/29/19 07/29/19 History [Multivitamin Women 50 Plus] pantoprazole [Protonix] 40 mg PO DAILYBB 07/29/19 07/29/19 History pramipexole [Mirapex] 0.25 mg PO DAILY 07/29/19 07/29/19 History sertraline [Zoloft] 100 mg PO QAM 07/29/19 07/29/19 History trazodone 50 mg PO HS 07/29/19 07/29/19 History Patient History Medical History Anxiety and depression (Chronic) Axillary lymphadenopathy Chronic respiratory failure with hypoxia (Chronic) CKD (chronic kidney disease), stage III COPD (chronic obstructive pulmonary disease) History of breast cancer HTN (hypertension) (Chronic) Hyperlipidemia Hypothyroidism (Chronic) ILD (interstitial lung disease) (Acute) Mild cognitive impairment BERNA (obstructive sleep apnea) Prediabetes Restless legs syndrome Surgical History S/P mastectomy S/P mastectomy, bilateral (Resolved) Family History (Updated 07/29/19 @ 15:38 by Nancy Orr PA-C) Sister Myocardial infarction Sister Stroke Social History Preferred Language: Kiswahili Communication Ability: Effective Lab Courier Required: No Beliefs That Will Affect Care: None marital status: Current Living Situation: Alone Other Information That Helps Us Care for You: No Feels Safe at Home: Yes Safety Concerns: Feels Safe At This Time Smoking Status: Former smoker Do You Dip or Chew Tobacco: No ; Number of Years Since Quit: 9 ; Second Hand Exposure: No ; Tobacco Cessation Education Requested by Patient: No Hx Alcohol Use: No Hx Substance Use: No Review of Systems Review of Systems: All systems reviewed & are unremarkable except as noted in HPI & below Physical Exam Physical Exam: Constitutional: No acute distress HEENT: EOMI, PERRLA, arcus senilis bilaterally Respiratory system: Decreased air entry bilaterally, no crackles, no rhonchi, positive diffuse expiratory wheeze CVS: S1-S2 positive, no murmurs or gallops, accentuated P2 Abdomen: Soft, nontender, nondistended, positive bowel sounds x4 Extremities: +2 pulses bilaterally radialis/ dorsalis pedis, no cyanosis, no edema Neuro: Awake alert oriented x3 Psych: Normal mood and affect G/U: No Anaya Skin: no rashes, warm and dry Lymphatic: no cervical or axillary lymphadenopathy Results & Data Vital Signs (Past 12 Hours) Vital Signs Temp Pulse Pulse Pulse Resp BP Pulse Ox 07/30/19 17:53 73 07/30/19 15:59 36.7 C 68 18 127/48 L 98 07/30/19 15:05 74 16 97 07/30/19 11:06 36.7 C 71 20 123/44 L 98 07/30/19 10:52 71 16 97 07/30/19 09:40 69 07/30/19 07:23 36.3 C L 110 H 22 167/73 H 92 07/30/19 07:01 74 14 94 07/30/19 06:28 07/30/19 06:28 PG Care Time/CCT Total # of Minutes Spent Total Time Spent with Patient: Total time spent is greater than 50% in coordination of care (as documented) at patient's floor/unit and/or counseling patient: [place] [address] Initial Inpt Care Lvl 3 Patient Type Established Diagnoses Chronic respiratory failure with hypoxia J96.11 Emphysema with chronic bronchitis J44.9 ILD (interstitial lung disease) J84.9 Time Spent (min) 45 Comment >50% time was spent [id number]-zdum with the patient discussing diagnosis and plan of care.
[2019-07-30] MEDS ORDERED: MAGNESIUM SULFATE / D5W 1 GM/100 ML BAG IV ONE (18:30)
[2019-07-30] MEDS ORDERED: ALBUT/IPRATROP 3MG/0.5MG NEB 3 ML VIAL NEB STA (18:32)
[2019-07-30] MEDS: ACETYLCYSTEINE 20% INHAL SOLN 4ML ***DISPENSED BY RESP. INH SCH (19:44)
[2019-07-30] MEDS: predniSONE 20 MG TAB PO SCH (21:02)
[2019-07-30] MEDS: cloNIDine HCL 0.1 MG TAB PO SCH (21:04)
[2019-07-30] MEDS: ENOXAPARIN INJ 40 MG/0.4 ML SYR SQ SCH (21:04)
[2019-07-30] MEDS: TRAZODONE HCL 50 MG TAB PO SCH (21:06)
[2019-07-30] MEDS: MONTELUKAST SODIUM 10 MG TABLET PO SCH (21:06)
[2019-07-31 05:59] LABS: Hematocrit (blood only) 33.4 % (37-47); Hemoglobin 11.4 g/dL (12.0-16.0); Mean Corpuscular Hemoglobin 30.1 pg (25-34); Mean Corpuscular Hgb Conc 34.1 g/dL (32-36); Mean Corpuscular Volume 88.1 fL (80-100); Mean Platelet Volume 9.1 fL (7.4-10.4); Platelet Count 239 K/uL (130-400); RDW Coefficient of Variation 14.5 % (11.5-14.5); RDW Standard Deviation 47.2 fL (36.4-46.3); Red Blood Count 3.79 M/uL (4.2-5.4); White Blood Count 13.56 K/uL (4.8-10.8)
[2019-07-31] MEDS: LEVOTHYROXINE SODIUM 25 MCG TABLET PO SCH (06:07)
[2019-07-31] MEDS: PANTOprazole 40 MG TAB PO SCH (06:09)
[2019-07-31 06:36] LABS: BUN Creatinine Ratio 22.1 (10-20); Calcium 9.1 mg/dl (8.5-10.1); Creatinine Clr Calc Pharmacy 51.6 ml/min; Est GFR (Non-African American) 49.2; Magnesium 2.1 mg/dl (1.8-2.4); Potassium 4.4 mmol/L (3.5-5.1)
[2019-07-31 06:46] LABS: Phosphorus 3.7 mg/dl (2.5-4.9)
[2019-07-31] MEDS: ACETYLCYSTEINE 20% INHAL SOLN 4ML ***DISPENSED BY RESP. INH SCH ×2 (07:16→19:02)
[2019-07-31] MEDS: ALBUT/IPRATROP 3MG/0.5MG NEB 3 ML VIAL NEB SCH ×6 (07:16→22:48)
[2019-07-31] MEDS: FLUTICASONE/VILANTEROL 100/25MCG 14 PUFFS/INHALER INH SCH (08:34)
[2019-07-31] MEDS: BusPIRone 15 MG TAB PO SCH ×2 (08:36→21:13)
[2019-07-31] MEDS: ACETAMINOPHEN 325 MG TAB PO PRN (08:36)
[2019-07-31] MEDS: hydroCHLOROthiazide 25 MG TAB PO SCH (08:37)
[2019-07-31] MEDS: dilTIAZem HCl 60 MG TAB PO SCH ×2 (08:37→21:13)
[2019-07-31] MEDS: FLUTICASONE PROPIONATE NA SPR 16 GM BTL NAE SCH (08:37)
[2019-07-31] MEDS: LOSARTAN POTASSIUM 50 MG TAB PO SCH (08:37)
[2019-07-31] MEDS: ASPIRIN 81 MG ECTAB PO SCH (08:37)
[2019-07-31] MEDS: LORATADINE 10 MG TAB PO SCH (08:37)
[2019-07-31] MEDS: FUROSEMIDE 20 MG TAB PO SCH (08:38)
[2019-07-31] MEDS: CEROVITE ADV FORMULA TAB PO SCH (08:38)
[2019-07-31] MEDS: predniSONE 20 MG TAB PO SCH ×2 (08:38→21:12)
[2019-07-31] MEDS: LIDOCAINE 5% 1 PATCH TD SCH (08:38)
[2019-07-31] MEDS: ATORVASTATIN 40 MG TAB PO SCH (08:38)
[2019-07-31] MEDS: FAMOTIDINE 20 MG TAB PO SCH (08:38)
[2019-07-31] MEDS: AZITHROMYCIN 250 MG TAB PO SCH (08:39)
[2019-07-31] MEDS: SERTRALINE HCL 100 MG TABLET PO SCH (08:39)
[2019-07-31] MEDS ORDERED: PROMETHAZINE HCL 6.25 MG in SODIUM CHLORIDE 0.9% 50 ML IV PRN (08:48)
--- NOTE | 2019-07-31 10:56 | Pulmonology Progress Note ---
Date of Service July 31, 2019 Assessment & Plan (1) Chronic respiratory failure with hypoxia: -- Acute on chronic hypoxic respiratory failure Likely sec to COPD exacerbation, influenza negative Continue with inhaled bronchodilators, steroids antibiotics --> agree with azithromycin QTC 408, nebulized Mucomyst --> can start tapering steroids as of tomorrow prednisone 40 mg for 3 more days followed by 20 mg for 2 days complete the course of antibiotics. DC budesonide as patient is already on Breo while in the hospital Maintain SPO2 between 88 to 92% BiPAP nightly and as needed shortness of breath --COPD with severe emphysema Patient is on Dulera and Spiriva at home which is optimal for her would continue with the same on discharge. --Interstitial lung disease Biopsy done in January 2018 which showed interstitial fibrosis Likely IPF Patient follows up with pulmonary as an outpatient Given her extent of emphysema on top of IPF, I do not think she will be a good candidate for treatment. --BERNA Patient noncompliant with CPAP Importance of CPAP explained to the patient. -- Dysphagia Videofluoroscopy ordered Please note the above document was generated using voice recognition software. It may contain grammatical, syntax or spelling errors. (2) Emphysema with chronic bronchitis: (3) ILD (interstitial lung disease): Subjective Patient seen and examined at bedside. No acute distress, no adverse events overnight. Apparently patient has been having this feeling of something got stuck in the middle of her throat whenever she eats irrespective whether it is being solid or liquid going on since approximately a week. Shortness of breath has improved. She is able to bring up more phlegm now especially after starting the Mucomyst. Denies any chest pain, no dizziness, no headache, no palpitation. Was feeling nauseous but did not throw up. Review of Systems Review of Systems: All systems reviewed & are unremarkable except as noted in HPI & below Physical Exam Physical Exam: Constitutional: No acute distress HEENT: EOMI, PERRLA, arcus senilis bilaterally Respiratory system: Decreased air entry bilaterally, no crackles, no rhonchi, mild expiratory wheeze CVS: S1-S2 positive, no murmurs or gallops, accentuated P2 Abdomen: Soft, nontender, nondistended, positive bowel sounds x4 Extremities: +2 pulses bilaterally radialis/ dorsalis pedis, no cyanosis, no edema Neuro: Awake alert oriented x3 Psych: Normal mood and affect G/U: No Anaya Skin: no rashes, warm and dry Lymphatic: no cervical or axillary lymphadenopathy Results & Data Vital Signs (Past 12 Hours) Vital Signs Temp Pulse Pulse Pulse Resp BP Pulse Ox 07/31/19 08:30 89 91 H 160/75 H 91 07/31/19 07:20 63 07/31/19 07:18 82 18 95 07/31/19 07:13 36.5 C 68 18 97 07/31/19 03:11 36.9 C 79 20 137/70 98 07/30/19 23:30 36.9 C 75 18 163/69 H 99 07/31/19 05:48 07/31/19 05:48 PG Care Time/CCT Total # of Minutes Spent Total Time Spent with Patient: Total time spent is greater than 50% in coordination of care (as documented) at patient's floor/unit and/or counseling patient: Coding Level of Care Code 44624 Subseq Hosp Care Lvl 3 Diagnoses Chronic respiratory failure with hypoxia J96.11 Emphysema with chronic bronchitis J44.9 ILD (interstitial lung disease) J84.9
[2019-07-31] MEDS ORDERED: GLUCOSE 10 TABS/TUBE PO PRN (13:54)
[2019-07-31] MEDS ORDERED: GLUCAGON FOR INJ 1 MG VIAL SQ PRN (13:54)
[2019-07-31] MEDS ORDERED: DEXTROSE 50% 50 ML SYRINGE IV PRN (13:54)
[2019-07-31] MEDS ORDERED: CARBOHYDRATES FOR HYPOGLYCEMIA PO PRN (13:54)
[2019-07-31] MEDS ORDERED: GLUCOSE 40% GEL 15 GM TUBE PO PRN (13:54)
--- NOTE | 2019-07-31 14:29 | Fluoroscopy Report ---
FL video swallow HISTORY: Dysphagia difficulty swallowing TECHNIQUE: Video fluoroscopic evaluation of swallowing was performed in the AP and lateral projection s by the speech pathology staff. The patient is fed nectar-thick and thin liquid barium, a barium coa carrillo wafer, and barium pudding. FLUOROSCOPY TIME: 2 minutes 35 seconds NUMBER OF FLUOROSCOPIC IMAGES: 97 COMPARISON STUDY: None FINDINGS: There is normal hyoid excursion and epiglottic deflection. No significant penetration or as piration identified. Swallowing function is within normal limits. Considerable esophageal dysmotility . 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 No aspiration identified. 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 Please see the speech pathologist report for detailed findings and recommendations. ACT 112: Negative or not required by law. The above report was generated using voice recognition software. It may contain grammatical, syntax or spelling errors. Electronically signed by: Yomi Moreland M.D. 07/31/2019 2:27 PM
[2019-07-31] MEDS: DONEPEZIL HCL 5 MG TAB PO SCH (15:53)
[2019-07-31] MEDS: INSULIN ASPART 100 UNITS/ML 3 ML PEN SC SCH ×2 (17:14→21:57)
--- NOTE | 2019-07-31 17:19 | Hospitalist Progress Note ---
Date of Service July 31, 2019 Assessment & Plan (1) Chronic respiratory failure with hypoxia: Acute on chronic hypoxic respiratory failure -This is a 68yo F with a PMH of COPD and IPF, chronic respiratory failure on 2L NC O2, HTN, CKD III, depression, anxiety, PTSD, hypothyroidism and other medical problems listed below who presents with progressive SOB x 1 month who was found to have COPD exacerbation. -Progressively worsening cough, wheezing and dyspnea on exertion in the setting of COPD and IPF -At oxygen baseline saturating 97% on 2L -CXR with cardiomegaly without overt pulmonary edema. Emphysema with chronic interstitial coarsening. No evidence of pneumonia -Given albuterol breathing treatment x 2, IV solu-medrol 125mg x 1 -admitting team on 07/29/2019 starting azithromycin course, prednisone 40mg x 5 days, duonebs QIDR, cough suppressant, Continue albuterol inhaler PRN, Dulera, Singulair -07/30/2019: patient does not appear have more supplementary oxygen requirements but appears to require further hospital medications and monitoring for the suboptimal expansion and exhalation on chest exam and persistent cough. have asked pulmonary consult to see the patient and any further recommendations for optimization of breathing and symptoms beyond current treatment -07/31/2019: video swallow completed, trying to de-escalate frequency of scheduled nebulizer treatments, CPAP at night if patient prefers use (2) COPD exacerbation: COPD with severe emphysema Interstitial lung disease -Continue with inhaled bronchodilators, steroids antibiotics, continue azithromycin, on nebulized Mucomyst, can start tapering prednisone as of 08/01/2019 as prednisone 40 mg for 3 more days followed by 20 mg for 2 days complete the course of azithromycin antibiotics (total of 5 days) on Breo while in the hospital Maintain SPO2 between 88 to 92% BiPAP nightly and as needed shortness of breath Patient is on Dulera and Spiriva at home which is optimal for her would continue with the same on discharge. -pulmonary consult commented that lung biopsy donehas upcoming in January 2018 which showed interstitial fibrosis which is likely IPF, patient has upcoming appointment with usual [facility] pulmonary clinic cricopharyngeal achalasia as cause of Dysphagia -as per video swallow evaluation on 07/31/2019 -food as soft and bite sized (3) BERNA (obstructive sleep apnea): -pulmonary consult comments that patient is noncompliant with CPAP and he counseled the patient about importance of CPAP, will order CPAP inpatient if patient agreeable (4) Insomnia: -Continue Trazodone -Was taking clonidine HS PRN for insomnia avoid for now due to actions of clonidine on blood pressure (5) HTN (hypertension): continue hctz, losartan (6) Anxiety and depression: Continue sertraline (7) CKD (chronic kidney disease), stage III: monitor (8) History of breast cancer: S/p mastectomy and chemo treatment -In remission DVT Ppx: SQ lovenox Code status: FULL PCP: Mainali Subjective Patient returned from video swallow study. Patient's diet is modified to soft, bite sized. on nasal cannula 2 liters/min. no vomiting. no abdomen pain. no headache. no dizziness. no acute distress. may have had some decreases in coughing today Review of Systems Review of Systems: All systems reviewed & are unremarkable except as noted in HPI & below Physical Exam Constitutional: comfortable Eyes: PERRL, conjunctivae normal, anicteric sclerae EOM intact bilaterally ENMT: external ear and nose normal, oropharynx normal Neck: normal visual inspection Respiratory: able to speak in complete sentences Cardiovascular: Rate/Rhythm: regular rate and regular rhythm Gastrointestinal (Abdomen): normal bowel sounds, soft, nontender, no hepatosp lenomegaly Musculoskeletal: Head/Neck/Chest: normocephalic and head atraumatic Neurologic: PERRL, EOMI, accommodation nl, no face palsy, no dysarthria CN's II-XI intact bilaterally Psychiatric: A+Ox3, euthymic affect Results & Data Vital Signs (Past 12 Hours) Vital Signs Temp Pulse Pulse Pulse Resp BP Pulse Ox 07/31/19 16:33 86 07/31/19 15:39 91 H 18 96 07/31/19 15:26 37.1 C 73 24 156/74 H 97 07/31/19 11:09 83 19 92 07/31/19 08:30 89 91 H 160/75 H 91 07/31/19 07:20 63 07/31/19 07:18 82 18 95 07/31/19 07:13 36.5 C 68 18 97 (1) HTN (hypertension) Hypertension type: essential hypertension Qualified Code(s): I10 - Essential (primary) hypertension
[2019-07-31] MEDS: ENOXAPARIN INJ 40 MG/0.4 ML SYR SQ SCH (21:12)
[2019-07-31] MEDS: MONTELUKAST SODIUM 10 MG TABLET PO SCH (21:12)
[2019-07-31] MEDS: PRAMIPEXOLE DIHYDROCHLO 0.25 MG TAB PO SCH (21:13)
[2019-07-31] MEDS: TRAZODONE HCL 50 MG TAB PO SCH (21:13)
[2019-08-01] MEDS: ACETAMINOPHEN 325 MG TAB PO PRN (00:52)
[2019-08-01] MEDS ORDERED: HYDROmorphone INJ 0.5 MG/0.5 ML SYR IV STA (04:34)
[2019-08-01] MEDS: LEVOTHYROXINE SODIUM 25 MCG TABLET PO SCH (05:53)
[2019-08-01] MEDS: PANTOprazole 40 MG TAB PO SCH (05:53)
--- NOTE | 2019-08-01 06:25 | Ultrasound Report ---
US venous doppler UE LT HISTORY: Pain. Edema. swollen and painful. dvt? COMPARISON STUDY: None. FINDINGS: The internal jugular vein is patent. There is normal flow within the subclavian vein. There is normal flow and compressibility within the left axillary, basilic, brachial, radial, ulnar, and v isualized cephalic veins. IMPRESSION: No DVT within the upper extremity. ACT 112: Negative or not required by law. The above report was generated using voice recognition software. It may contain grammatical, syntax or spelling errors. Electronically signed by: Yomi Moreland M.D. 08/01/2019 6:23 AM
[2019-08-01] MEDS: ACETYLCYSTEINE 20% INHAL SOLN 4ML ***DISPENSED BY RESP. INH SCH ×2 (07:32→19:00)
[2019-08-01] MEDS: ALBUT/IPRATROP 3MG/0.5MG NEB 3 ML VIAL NEB SCH ×4 (07:32→22:37)
[2019-08-01] MEDS: FLUTICASONE/VILANTEROL 100/25MCG 14 PUFFS/INHALER INH SCH (08:34)
[2019-08-01] MEDS: ATORVASTATIN 40 MG TAB PO SCH (08:35)
[2019-08-01] MEDS: CEROVITE ADV FORMULA TAB PO SCH (08:36)
[2019-08-01] MEDS: predniSONE 20 MG TAB PO SCH (08:36)
[2019-08-01] MEDS: ASPIRIN 81 MG ECTAB PO SCH (08:37)
[2019-08-01] MEDS: LOSARTAN POTASSIUM 50 MG TAB PO SCH (08:38)
[2019-08-01] MEDS: FUROSEMIDE 20 MG TAB PO SCH (08:38)
[2019-08-01] MEDS: FAMOTIDINE 20 MG TAB PO SCH (08:38)
[2019-08-01] MEDS: dilTIAZem HCl 60 MG TAB PO SCH ×2 (08:39→20:51)
[2019-08-01] MEDS: BusPIRone 15 MG TAB PO SCH ×2 (08:39→20:52)
[2019-08-01] MEDS: AZITHROMYCIN 250 MG TAB PO SCH (08:39)
[2019-08-01] MEDS: hydroCHLOROthiazide 25 MG TAB PO SCH (08:40)
[2019-08-01] MEDS: LORATADINE 10 MG TAB PO SCH (08:40)
[2019-08-01] MEDS: FLUTICASONE PROPIONATE NA SPR 16 GM BTL NAE SCH (08:41)
[2019-08-01] MEDS: SERTRALINE HCL 100 MG TABLET PO SCH (08:41)
[2019-08-01] MEDS: LIDOCAINE 5% 1 PATCH TD SCH (08:41)
[2019-08-01] MEDS: INSULIN ASPART 100 UNITS/ML 3 ML PEN SC SCH ×4 (09:32→20:54)
--- NOTE | 2019-08-01 12:31 | Pulmonology Progress Note ---
Date of Service August 01, 2019 Assessment & Plan (1) Chronic respiratory failure with hypoxia: -- Acute on chronic hypoxic respiratory failure Likely sec to COPD exacerbation, influenza negative Continue with inhaled bronchodilators, steroids antibiotics --> agree with azithromycin QTC 408, nebulized Mucomyst --> can start tapering steroids as of tomorrow prednisone 40 mg for 3 more days followed by 20 mg for 2 days complete the course of antibiotics. Maintain SPO2 between 88 to 92% BiPAP nightly and as needed shortness of breath --COPD with severe emphysema Patient is on Dulera and Spiriva at home which is optimal for her would continue with the same on discharge. --Interstitial lung disease Biopsy done in January 2018 which showed interstitial fibrosis Likely IPF Patient follows up with pulmonary as an outpatient Given her extent of emphysema on top of IPF, I do not think she will be a good candidate for treatment. --BERNA Patient noncompliant with CPAP Importance of CPAP explained to the patient. -- Dysphagia Video Fluoroscopy: Considerable esophageal dysmotility. 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 Coughing up much less. No more wheezing. Shortness of breath is improved. Patient was saturating 92% on room air at the time of examination. Start tapering steroids as of tomorrow as per above recommendations. Will sign off. Recall if needed. Please note the above document was generated using voice recognition software. It may contain grammatical, syntax or spelling errors. (2) Emphysema with chronic bronchitis: (3) ILD (interstitial lung disease): Subjective Patient seen and examined at bedside. No acute distress, no adverse events overnight. Patient respiratory status umana is feeling better. Shortness of breath is improved. Had very minimal blood-tinged phlegm late last evening. No more affect today. No chest pain, no headache, no nausea or vomiting. Her main complaint is left shoulder pain. Review of Systems Review of Systems: All systems reviewed & are unremarkable except as noted in HPI & below Physical Exam Physical Exam: Constitutional: No acute distress HEENT: EOMI, PERRLA, arcus senilis bilaterally Respiratory system: Decreased air entry bilaterally, + dry crackles b/l LL, no rhonchi, no wheeze CVS: S1-S2 positive, no murmurs or gallops, accentuated P2 Abdomen: Soft, nontender, nondistended, positive bowel sounds x4 Extremities: +2 pulses bilaterally radialis/ dorsalis pedis, no cyanosis, no edema, left shoulder tenderness more anteriorly, pain on active and passive motion. Neuro: Awake alert oriented x3 Psych: Normal mood and affect G/U: No Anaya Skin: no rashes, warm and dry Lymphatic: no cervical or axillary lymphadenopathy Results & Data Vital Signs (Past 12 Hours) Vital Signs Temp Pulse Pulse Resp BP Pulse Ox 08/01/19 12:24 36.8 C 76 20 167/87 H 91 08/01/19 09:46 68 08/01/19 07:35 36.7 C 80 18 134/73 97 08/01/19 07:34 78 19 98 08/01/19 03:29 36.5 C 65 18 153/85 H 97 08/01/19 01:10 69 07/31/19 05:48 07/31/19 05:48 PG Care Time/CCT Total # of Minutes Spent Total Time Spent with Patient: Total time spent is greater than 50% in coordination of care (as documented) at patient's floor/unit and/or counseling patient: Coding Level of Care Code 82821 Subseq Hosp Care Lvl 3 Diagnoses Chronic respiratory failure with hypoxia J96.11 Emphysema with chronic bronchitis J44.9 ILD (interstitial lung disease) J84.9
[2019-08-01] MEDS ORDERED: KETOROLAC 30 MG/ML VIAL IV PRN (13:00)
[2019-08-01] MEDS ORDERED: KETOROLAC TROMETHAMINE 15 MG/ML VIAL IV PRN (13:15)
[2019-08-01] MEDS ORDERED: KETOROLAC TROMETHAMINE 15 MG/ML VIAL IV ONE (13:15)
--- NOTE | 2019-08-01 13:56 | Surgery Consultation ---
Date of Consultation August 01, 2019 Assessment & Plan (1) Axillary mass: This is a 68y F with a PMH of COPD, IPF, HTN, CKDIII, bilateral mastectomy 2012 and acute on chronic respiratory failure who has a left underarm mass with associated pain of left upper extremity. On examination patient has some axillary fullness that is tender to palpation along with painful range of motion of L shoulder. She reports that this mass has been present for the past month and varies in size. There is currently no drainage or redness. There is some mild swelling of the left upper arm compared to the left, but not significant. At this time would recommend obtaining further imaging of the area of concern such as a left axillary ultrasound to delineate the mass. We will continue to follow. History of Present Illness Attending Physician: Brian Cobian MD History of Present Illness This is a 68y F with a PMH of COPD, IPF, HTN, CKDIII, bilateral mastectomy 2012 who presents to the [facility] with shortness of breath, currently undergoing treatment for acute on chronic respiratory failure. Surgery was consulted as patient has complaints of left underarm and shoulder pain. Patient reports she feels a mass under her left axilla that has been present for about 1 month. She states that the mass has been varying in size and has been at one point larger than it currently is now. Since admission patient has had an increased pain around the shoulder and under the armpit. A duplex was obtained that is negative for DVT. She denies fever/chills, nausea/vomiting, and denies any drainage or redness associated with the mass. She believes her left upper arm is a little bit more swollen than the right. In regards to her breast history shes had a right mastectomy with lymph node biopsy on the right and a modified radical mastectomy on the left [place] [address] Goodson. She had an MRI of the breast in 12/20 for a separate lump that she felt that that showed no evidence of recurrent disease. Allergies Allergy/AdvReac Type Severity Reaction Status Date / Time hydralazine Allergy Intermediate joint pain Verified 07/29/19 11:19 tetracycline Allergy Mild RASH Verified 07/29/19 11:19 amlodipine AdvReac Mild Edema. Verified 07/29/19 11:19 Home Medications Home Medications Medication Instructions Recorded Confirmed Type levothyroxine [Synthroid] 62.5 mcg PO QAM 08/21/18 07/29/19 History fluticasone propionate [Flonase 2 sprays INTRANASAL DAILY 09/09/18 07/29/19 History Allergy Relief] Oxygen Home #1 ea 03/09/19 04/24/19 History aspirin 81 mg tablet,delayed 81 mg PO DAILY #30 tab 03/09/19 07/29/19 History release inhalational spacing device #1 ea 03/09/19 04/24/19 History tiotropium bromide 2.5 2 puffs INHALATION DAILY #1 gm 03/09/19 07/29/19 History mcg/actuation mist for inhalation atorvastatin 40 mg tablet 40 mg PO DAILY 03/12/19 07/29/19 History furosemide 20 mg tablet 20 mg PO QAM #30 tab 03/14/19 07/29/19 Rx albuterol sulfate 2.5 mg INHALATION Q4H PRN 07/29/19 07/29/19 History albuterol sulfate [Ventolin HFA] 2 inha INH Q4H PRN 07/29/19 07/29/19 History azelastine 1 spray INTRANASAL BID 07/29/19 07/29/19 History benzonatate [Tessalon Perles] 100 mg PO TID PRN 07/29/19 07/29/19 History budesonide [Pulmicort] 0.5 mg INHALATION DAILY 07/29/19 07/29/19 History buspirone 15 mg PO BID 07/29/19 07/29/19 History cholecalciferol (vitamin D3) 50,000 unit PO WK 07/29/19 07/29/19 History [Vitamin D3] clonidine HCl [Catapres] 0.1 mg PO HS PRN 07/29/19 07/29/19 History codeine-guaifenesin [G Tussin AC] 5 ml PO TID PRN 07/29/19 07/29/19 History diltiazem HCl [Cardizem] 120 mg PO BID 07/29/19 07/29/19 History donepezil [Aricept] 5 mg PO UD 07/29/19 07/29/19 History famotidine [Pepcid] 20 mg PO DAILY 07/29/19 07/29/19 History hydrochlorothiazide 12.5 mg PO DAILY 07/29/19 07/29/19 History loratadine [Claritin] 10 mg PO DAILY 07/29/19 07/29/19 History losartan [Cozaar] 100 mg PO QAM 07/29/19 07/29/19 History mometasone-formoterol [Dulera] 2 puff INHALATION BID 07/29/19 07/29/19 History montelukast [Singulair] 10 mg PO HS 07/29/19 07/29/19 History jwavehwp-gia-onir-FA-lutein 1 tab PO DAILY 07/29/19 07/29/19 History [Multivitamin Women 50 Plus] pantoprazole [Protonix] 40 mg PO DAILYBB 07/29/19 07/29/19 History pramipexole [Mirapex] 0.25 mg PO DAILY 07/29/19 07/29/19 History sertraline [Zoloft] 100 mg PO QAM 07/29/19 07/29/19 History trazodone 50 mg PO HS 07/29/19 07/29/19 History Patient History Medical History Anxiety and depression (Chronic) Axillary lymphadenopathy Chronic respiratory failure with hypoxia (Chronic) CKD (chronic kidney disease), stage III COPD (chronic obstructive pulmonary disease) History of breast cancer HTN (hypertension) (Chronic) Hyperlipidemia Hypothyroidism (Chronic) ILD (interstitial lung disease) (Acute) Mild cognitive impairment BERNA (obstructive sleep apnea) Prediabetes Restless legs syndrome Surgical History S/P mastectomy S/P mastectomy, bilateral (Resolved) Family History Sister Myocardial infarction Sister Stroke Social History Preferred Language: Sinhala Communication Ability: Effective Police Liaison Officer Required: No Beliefs That Will Affect Care: None marital status: Current Living Situation: Alone Other Information That Helps Us Care for You: No Feels Safe at Home: Yes Safety Concerns: Feels Safe At This Time Smoking Status: Former smoker Do You Dip or Chew Tobacco: No ; Number of Years Since Quit: 9 ; Second Hand Exposure: No ; Tobacco Cessation Education Requested by Patient: No Hx Alcohol Use: No Hx Substance Use: No Review of Systems Constitutional: no fever and no chills Respiratory: shortness of breath improving since admission Cardiovascular: no chest pain Integumentary: lump under left armpit, tenderness to area in addition to left shoulder pain with movement Physical Exam Physical Exam: awake/alert Constitutional: well developed and well nourished; no acute distress Respiratory: wearing supplemental nasal cannula, respirations normal Musculoskeletal: + tenderness to palpation of left axillary mass. Pt also tender with ROM of L shoulder and ttp gabby- shoulder and deltoid Results & Data Vital Signs (Past 12 Hours) Vital Signs Temp Pulse Pulse Resp BP Pulse Ox 08/01/19 12:24 36.8 C 76 20 167/87 H 91 08/01/19 09:46 68 08/01/19 07:35 36.7 C 80 18 134/73 97 08/01/19 07:34 78 19 98 08/01/19 03:29 36.5 C 65 18 153/85 H 97 PG Care Time/CCT Total # of Minutes Spent Total Time Spent with Patient: Total time spent is greater than 50% in coordination of care (as documented) at patient's floor/unit and/or counseling patient: Coding Level of Care Code 15749 Initial Inpt Care Lvl 3 Diagnoses Axillary mass R22.30
--- NOTE | 2019-08-01 16:11 | Ultrasound Report ---
US extremity nonvascular CLINICAL HISTORY: evaluate for mass under left axilla COMPARISON STUDY: None. FINDINGS: Real-time sonographic imaging of the left axilla was performed with claims representative images s ubmitted. No masses, fluid collections, lymphadenopathy. IMPRESSION: No sonographic abnormality within the left axilla. ACT 112: Negative or not required by law. Electronically signed by: Moe Hills M.D. 08/01/2019 4:10 PM
[2019-08-01] MEDS: DONEPEZIL HCL 5 MG TAB PO SCH (16:15)
--- NOTE | 2019-08-01 18:23 | Hospitalist Progress Note ---
Date of Service August 01, 2019 Assessment & Plan (1) COPD exacerbation: (1) Chronic respiratory failure with hypoxia: Acute on chronic hypoxic respiratory failure per Dr. Edwards's notes: -This is a 68yo F with a PMH of COPD and IPF, chronic respiratory failure on 2L NC O2, HTN, CKD III, depression, anxiety, PTSD, hypothyroidism and other medical problems listed below who presents with progressive SOB x 1 month who was found to have COPD exacerbation. -Progressively worsening cough, wheezing and dyspnea on exertion in the setting of COPD and IPF -At oxygen baseline saturating 97% on 2L -CXR with cardiomegaly without overt pulmonary edema. Emphysema with chronic interstitial coarsening. No evidence of pneumonia -Given albuterol breathing treatment x 2, IV solu-medrol 125mg x 1 -admitting team on 07/29/2019 starting azithromycin course, prednisone 40mg x 5 days, duonebs QIDR, cough suppressant, Continue albuterol inhaler PRN, Dulera, Singulair -- continues to improve [employer] following start Prednisone taper x 3 days tomorrow continue Azithromycin to complete 5 days continue Nebs continue usual bronchidilators on discharge (2) COPD exacerbation: COPD with severe emphysema Interstitial lung disease -- management as noted above ff up with [employer] upon discharge Cricopharyngeal achalasia as cause of Dysphagia -as per video swallow evaluation on 07/31/2019 -food as soft and bite sized Left Upper Arm Edema, Pain Left Axillary mass - Left Upper Ext US: no DVT, no mass, no fluid collection - Gen Surgery consulted--> recommend Ortho consult (3) BERNA (obstructive sleep apnea): -continue CPAP at home (4) Insomnia: -Continue Trazodone - Was taking clonidine HS PRN for insomnia avoid for now due to actions of clonidine on blood pressure (5) HTN (hypertension): continue hctz, losartan (6) Anxiety and depression: Continue sertraline (7) CKD (chronic kidney disease), stage III: monitor (8) History of breast cancer: S/p mastectomy and chemo treatment -In remission Disposition pending anticipate d/c to home when medically stable Subjective ff up for COPD exacerbation seen resting in bed, sitting up, comfortable on 2 L o2 via nasal cannula states her breathing has improved now, no cough, dyspnea started to have left upper arm swelling and pain last night- no DVT on US no fever/chills no other symptoms Review of Systems Review of Systems: All systems reviewed & are unremarkable except as noted in HPI & below Physical Exam Physical Exam: General- oriented x 3, not in distress, speaks in sentences with no effort or accessory muscle use Head- atraumatic Eyes- PERRL, EOMI, anicteric ENT- oropharynx clear Neck- supple, no JVD, no adenopathy, no thyromegaly; carotids +2/2, no bruits appreciated Lungs- clear to auscultation bilaterally, no rales/wheezes Heart- normal rate, regular rhythm; no murmur, no gallop, no rub appreciated Abdomen- normal bowel sounds, nondistended, soft, nontender, no masses or hepatosplenomegaly Extremities- (+) left upper arm: significant edema, moderate tenderness but no erythema, warmth (+) left axilla- tender mass palpated, firm no pretibial edema, no calf tenderness; peripheral pulses intact Neuro- alert, oriented x 3; CN 2-12 grossly intact; motor 5/5 bilaterally;sensation 100% on all extremities; no other gross focal neurologic deficits Skin- warm & dry Results & Data Vital Signs (Past 12 Hours) Vital Signs Temp Pulse Pulse Resp BP Pulse Ox 08/01/19 15:17 36.5 C 78 17 153/74 H 95 08/01/19 15:08 77 18 98 08/01/19 12:24 36.8 C 76 20 167/87 H 91 08/01/19 09:46 68 08/01/19 07:35 36.7 C 80 18 134/73 97 08/01/19 07:34 78 19 98 Laboratory Results Laboratory Results - last 24 hr 07/31/19 08/01/19 08/01/19 20:40 08:31 12:15 POC Glucose 146 H 155 H 154 H 08/01/19 16:15 POC Glucose 155 H
[2019-08-01] MEDS: MONTELUKAST SODIUM 10 MG TABLET PO SCH (20:53)
[2019-08-01] MEDS: TRAZODONE HCL 50 MG TAB PO SCH (20:53)
[2019-08-01] MEDS: PRAMIPEXOLE DIHYDROCHLO 0.25 MG TAB PO SCH (20:53)
[2019-08-01] MEDS: ENOXAPARIN INJ 40 MG/0.4 ML SYR SQ SCH (20:54)
[2019-08-01] MEDS: guaiFENesin SUGAR FREE 100 MG/5 ML UDC PO PRN (21:59)
[2019-08-02] MEDS ORDERED: ALBUT/IPRATROP 3MG/0.5MG NEB 3 ML VIAL NEB STA (03:32)
[2019-08-02] MEDS: guaiFENesin 600 MG TABCR PO SCH ×2 (04:06→20:43)
[2019-08-02] MEDS: PANTOprazole 40 MG TAB PO SCH (05:00)
[2019-08-02] MEDS: LEVOTHYROXINE SODIUM 25 MCG TABLET PO SCH (05:00)
[2019-08-02] MEDS: ALBUT/IPRATROP 3MG/0.5MG NEB 3 ML VIAL NEB SCH ×4 (06:50→23:18)
[2019-08-02] MEDS: ACETYLCYSTEINE 20% INHAL SOLN 4ML ***DISPENSED BY RESP. INH SCH ×2 (06:50→19:29)
[2019-08-02] MEDS: INSULIN ASPART 100 UNITS/ML 3 ML PEN SC SCH ×4 (08:07→20:43)
[2019-08-02] MEDS: FLUTICASONE/VILANTEROL 100/25MCG 14 PUFFS/INHALER INH SCH (08:08)
[2019-08-02] MEDS: FLUTICASONE PROPIONATE NA SPR 16 GM BTL NAE SCH (08:12)
[2019-08-02] MEDS: LORATADINE 10 MG TAB PO SCH (08:12)
[2019-08-02] MEDS: LOSARTAN POTASSIUM 50 MG TAB PO SCH (08:12)
[2019-08-02] MEDS: BusPIRone 15 MG TAB PO SCH ×2 (08:12→20:40)
[2019-08-02] MEDS: dilTIAZem HCl 60 MG TAB PO SCH ×2 (08:12→20:40)
[2019-08-02] MEDS: ASPIRIN 81 MG ECTAB PO SCH (08:12)
[2019-08-02] MEDS: FAMOTIDINE 20 MG TAB PO SCH (08:13)
[2019-08-02] MEDS: ATORVASTATIN 40 MG TAB PO SCH (08:13)
[2019-08-02] MEDS: SERTRALINE HCL 100 MG TABLET PO SCH (08:13)
[2019-08-02] MEDS: FUROSEMIDE 20 MG TAB PO SCH (08:13)
[2019-08-02] MEDS: predniSONE 20 MG TAB PO SCH (08:13)
[2019-08-02] MEDS: CEROVITE ADV FORMULA TAB PO SCH (08:13)
[2019-08-02] MEDS: LIDOCAINE 5% 1 PATCH TD SCH (08:13)
[2019-08-02] MEDS: hydroCHLOROthiazide 25 MG TAB PO SCH (08:13)
[2019-08-02] MEDS: AZITHROMYCIN 250 MG TAB PO SCH (08:13)
--- NOTE | 2019-08-02 09:55 | XRay Report ---
XR shoulder LT min 2V routine CLINICAL HISTORY: upper arm swelling/pain pain. Edema. COMPARISON: None. DISCUSSION: The bones and joint spaces appear intact. There is no evidence of fracture, dislocation o r bony disease. There is no evidence for soft tissue swelling. Mild degenerative change acromioclavic ular joint. IMPRESSION: Mild degenerative changes acromioclavicular joint. Otherwise negative study. ACT 112: Negative or not required by law. The above report was generated using voice recognition software. It may contain grammatical, syntax or spelling errors. Electronically signed by: Yomi Moreland M.D. 08/02/2019 9:53 AM
--- NOTE | 2019-08-02 09:56 | XRay Report ---
XR humerus LT 2V CLINICAL HISTORY: Upper arm swelling/pain COMPARISON: None. DISCUSSION: No fractures or dislocations are visualized. No destructive lesions are visualized. IMPRESSION: 1. No fractures identified 2. No destructive lesions are visualized ACT 112: Negative or not required by law. Electronically signed by: Jay Miller M.D. 08/02/2019 9:54 AM
--- NOTE | 2019-08-02 15:05 | Orthopedic Consultation ---
Date of Consultation August 02, 2019 Assessment & Plan (1) Left shoulder pain: She is complaining of some swelling down the arm. Likely from her history of prior mastectomy. Ultrasound was negative for mass. I do not palpate any mass on exam. I do not really appreciate any pain in the glenohumeral joint itself. I do not think there is concern for something like a septic joint. Most of her pain is periscapular. She has been doing a fair amount of coughing with her COPD exacerbation is possible that she aggravated this with 1 of those episodes. Most of her pain appears to be functional and likely therefore muscular in nature. I would just treat this symptomatically. She is okay for discharge when medically stable. History of Present Illness Reason for Consultation: Left shoulder pain Attending Physician: Brian Cobian MD History of Present Illness Patient is a 68-year-old female with admitted for COPD exacerbation. She is been having some increasing left shoulder pain. She locates that pain to the inferior border of the scapula and lateral border of the scapula. She has some pain that goes up into the deltoid. Denies any radicular symptoms. Denies any neurologic symptoms. Denies any trauma. She does not really have much pain that she locates to the glenohumeral joint. Denies any fevers or chills. She has a history of bilateral mastectomy she has had lymphedema previously in this extremity a couple of times in the past Allergies Allergy/AdvReac Type Severity Reaction Status Date / Time hydralazine Allergy Intermediate joint pain Verified 07/29/19 11:19 tetracycline Allergy Mild RASH Verified 07/29/19 11:19 amlodipine AdvReac Mild Edema. Verified 07/29/19 11:19 Home Medications Home Medications Medication Instructions Recorded Confirmed Type levothyroxine [Synthroid] 62.5 mcg PO QAM 08/21/18 07/29/19 History fluticasone propionate [Flonase 2 sprays INTRANASAL DAILY 09/09/18 07/29/19 History Allergy Relief] Oxygen Home #1 ea 03/09/19 04/24/19 History aspirin 81 mg tablet,delayed 81 mg PO DAILY #30 tab 03/09/19 07/29/19 History release inhalational spacing device #1 ea 03/09/19 04/24/19 History tiotropium bromide 2.5 2 puffs INHALATION DAILY #1 gm 03/09/19 07/29/19 History mcg/actuation mist for inhalation atorvastatin 40 mg tablet 40 mg PO DAILY 03/12/19 07/29/19 History furosemide 20 mg tablet 20 mg PO QAM #30 tab 03/14/19 07/29/19 Rx albuterol sulfate 2.5 mg INHALATION Q4H PRN 07/29/19 07/29/19 History albuterol sulfate [Ventolin HFA] 2 inha INH Q4H PRN 07/29/19 07/29/19 History azelastine 1 spray INTRANASAL BID 07/29/19 07/29/19 History benzonatate [Tessalon Perles] 100 mg PO TID PRN 07/29/19 07/29/19 History budesonide [Pulmicort] 0.5 mg INHALATION DAILY 07/29/19 07/29/19 History buspirone 15 mg PO BID 07/29/19 07/29/19 History cholecalciferol (vitamin D3) 50,000 unit PO WK 07/29/19 07/29/19 History [Vitamin D3] clonidine HCl [Catapres] 0.1 mg PO HS PRN 07/29/19 07/29/19 History codeine-guaifenesin [G Tussin AC] 5 ml PO TID PRN 07/29/19 07/29/19 History diltiazem HCl [Cardizem] 120 mg PO BID 07/29/19 07/29/19 History donepezil [Aricept] 5 mg PO UD 07/29/19 07/29/19 History famotidine [Pepcid] 20 mg PO DAILY 07/29/19 07/29/19 History hydrochlorothiazide 12.5 mg PO DAILY 07/29/19 07/29/19 History loratadine [Claritin] 10 mg PO DAILY 07/29/19 07/29/19 History losartan [Cozaar] 100 mg PO QAM 07/29/19 07/29/19 History mometasone-formoterol [Dulera] 2 puff INHALATION BID 07/29/19 07/29/19 History montelukast [Singulair] 10 mg PO HS 07/29/19 07/29/19 History zibbhznv-kpg-fhpy-FA-lutein 1 tab PO DAILY 07/29/19 07/29/19 History [Multivitamin Women 50 Plus] pantoprazole [Protonix] 40 mg PO DAILYBB 07/29/19 07/29/19 History pramipexole [Mirapex] 0.25 mg PO DAILY 07/29/19 07/29/19 History sertraline [Zoloft] 100 mg PO QAM 07/29/19 07/29/19 History trazodone 50 mg PO HS 07/29/19 07/29/19 History Patient History Medical History Anxiety and depression (Chronic) Axillary lymphadenopathy Chronic respiratory failure with hypoxia (Chronic) CKD (chronic kidney disease), stage III COPD (chronic obstructive pulmonary disease) History of breast cancer HTN (hypertension) (Chronic) Hyperlipidemia Hypothyroidism (Chronic) ILD (interstitial lung disease) (Acute) Mild cognitive impairment BERNA (obstructive sleep apnea) Prediabetes Restless legs syndrome Surgical History S/P mastectomy S/P mastectomy, bilateral (Resolved) Family History Sister Myocardial infarction Sister Stroke Social History Preferred Language: Kyrgyz Communication Ability: Effective Antique Finisher Required: No Beliefs That Will Affect Care: None marital status: Current Living Situation: Alone Other Information That Helps Us Care for You: No Feels Safe at Home: Yes Safety Concerns: Feels Safe At This Time Smoking Status: Former smoker Do You Dip or Chew Tobacco: No ; Number of Years Since Quit: 9 ; Second Hand Exposure: No ; Tobacco Cessation Education Requested by Patient: No Hx Alcohol Use: No Hx Substance Use: No Physical Exam Constitutional: WD/WN, vitals as above Neck: trachea midline Respiratory: normal respiratory effort Cardiovascular: Extremities: no pedal edema Musculoskeletal: Left upper extremity: 2+ radial pulse light touch sensation and motor function of median ulnar and radial nerve distributions is intact. She complains of pain that she locates around the scapula. Inspection of this region is relatively normal. There is no erythema. No swelling. No masses are palpated. She is tender to palpation along the lateral border and inferior corner of the scapula. No tenderness to palpation in the glenohumeral joint. No swelling around that region. She does have some mild edema through the distal aspect of the extremity. Active forward flexion 0 170 degrees with some pain she locates around the scapula. Abduction 0 to 160 degrees. She has some pain with rotator cuff strength testing that she locates the scapula but her rotator cuff strength is relatively well-preserved. Results & Data ([facility] Vital Signs (Past 12 Hours) Vital Signs Temp Pulse Pulse Resp BP Pulse Ox 08/02/19 11:48 37.1 C 82 19 129/72 91 08/02/19 08:00 57 L 08/02/19 07:41 36.8 C 65 21 163/79 H 100 08/02/19 06:56 75 18 97 08/02/19 05:13 168/82 H 08/02/19 03:53 71 18 91 08/02/19 03:46 36.5 C 67 20 179/71 H 92
[2019-08-02] MEDS ORDERED: IBUPROFEN 200 MG TAB PO PRN (17:01)
[2019-08-02] MEDS ORDERED: cloNIDine HCL 0.1 MG TAB PO ONE (17:15)
[2019-08-02] MEDS ORDERED: AMLODIPINE BESYLATE 5 MG TAB PO ONE (17:15)
[2019-08-02] MEDS: DONEPEZIL HCL 5 MG TAB PO SCH (17:28)
--- NOTE | 2019-08-02 18:49 | Hospitalist Progress Note ---
Date of Service August 02, 2019 Assessment & Plan (1) COPD exacerbation: (1) Chronic respiratory failure with hypoxia: Acute on chronic hypoxic respiratory failure per Dr. Edwards's notes: -This is a 68yo F with a PMH of COPD and IPF, chronic respiratory failure on 2L NC O2, HTN, CKD III, depression, anxiety, PTSD, hypothyroidism and other medical problems listed below who presents with progressive SOB x 1 month who was found to have COPD exacerbation. -Progressively worsening cough, wheezing and dyspnea on exertion in the setting of COPD and IPF -At oxygen baseline saturating 97% on 2L -CXR with cardiomegaly without overt pulmonary edema. Emphysema with chronic interstitial coarsening. No evidence of pneumonia -Given albuterol breathing treatment x 2, IV solu-medrol 125mg x 1 -admitting team on 07/29/2019 starting azithromycin course, prednisone 40mg x 5 days, duonebs QIDR, cough suppressant, Continue albuterol inhaler PRN, Dulera, Singulair --Respiratory symptoms resolved [employer] following start Prednisone taper 40 mg x 3 days, then 20 mg x 2 days then stop Continue azithromycin x5 days Nebs as needed continue usual bronchidilators on discharge (2) COPD exacerbation: COPD with severe emphysema Interstitial lung disease -- management as noted above ff up with [employer] upon discharge Cricopharyngeal achalasia as cause of Dysphagia -as per video swallow evaluation on 07/31/2019 -Speech therapist recommend soft and bite sized food -Patient still reporting sensation of food getting stuck in her throat -Consult personal lines appraiser, keep n.p.o. overnight in case EGD is recommended tomorrow Left Upper Arm Edema, Pain Left Axillary mass - Left Upper Ext US: no DVT, no mass, no fluid collection - Gen Surgery consulted--> recommend Ortho consult--> felt to be muscular in etiology, symptomatic management recommended -Improving, continue pain control, ice packs (3) BERNA (obstructive sleep apnea): -continue CPAP at home (4) Insomnia: -Continue Trazodone - Was taking clonidine HS PRN for insomnia avoid for now due to actions of clonidine on blood pressure (5) HTN (hypertension): -Pressure elevated today as high as systolic 200s -Clonidine 0.1 mg p.o. ordered as patient has leg edema with amlodipine and has hives with hydralazine, cannot recommend this point due to COPD exacerbation continue hctz, losartan -Monitor (6) Anxiety and depression: Continue sertraline Added PRN Vistaril (7) CKD (chronic kidney disease), stage III: monitor (8) History of breast cancer: S/p mastectomy and chemo treatment -In remission Disposition pending anticipate d/c to home when medically stable tomorrow with home health services Subjective Follow-up COPD exacerbation, left upper arm pain Seen sitting up in bed, patient states she is having anxiety attack because she is overwhelmed with her housing situation Patient reassured, she seemed to be more calm afterwards States her breathing has been fine overall today Left upper arm pain also improving, less chills Denies headache, chest pain, shortness of breath, palpitations, dizziness No other symptoms Review of Systems Review of Systems: All systems reviewed & are unremarkable except as noted in HPI & below Physical Exam Physical Exam: General- oriented x 3, not in distress, speaks in sentences with no effort or accessory muscle use Eyes- anicteric Neck- no JVD Lungs- clear breath sounds bilaterally, no rales/wheezes Heart- normal rate, regular rhythm; no murmurs Abdomen- normal bowel sounds, nondistended, soft, nontender Extremities- Positive mild edema and warmth of the left upper arm but no tenderness, no shoulder tenderness, no axillary region tenderness, no pretibial edema, no calf tenderness Neuro- alert, oriented x 3; no gross focal neurologic deficits Skin- warm & dry Results & Data ([facility]) Vital Signs (Past 12 Hours) Vital Signs Temp Pulse Pulse Resp BP Pulse Ox 08/02/19 15:14 36.8 C 77 18 168/85 H 92 08/02/19 15:11 80 16 95 08/02/19 11:48 37.1 C 82 19 129/72 91 08/02/19 08:00 57 L 08/02/19 07:41 36.8 C 65 21 163/79 H 100 08/02/19 06:56 75 18 97 Laboratory Results Laboratory Results - last 24 hr 08/01/19 08/02/19 08/02/19 20:24 07:56 12:02 POC Glucose 126 H 116 H 120 H 08/02/19 16:17 POC Glucose 146 H
[2019-08-02] MEDS: TRAZODONE HCL 50 MG TAB PO SCH (20:40)
[2019-08-02] MEDS: ENOXAPARIN INJ 40 MG/0.4 ML SYR SQ SCH (20:41)
[2019-08-02] MEDS: PRAMIPEXOLE DIHYDROCHLO 0.25 MG TAB PO SCH (20:42)
[2019-08-02] MEDS: MONTELUKAST SODIUM 10 MG TABLET PO SCH (20:44)
[2019-08-02] MEDS: guaiFENesin SUGAR FREE 100 MG/5 ML UDC PO PRN (21:14)
[2019-08-03] MEDS ORDERED: Nursing to Pharmacy Communication ONE ×2 (00:53→13:09)
[2019-08-03] MEDS: INSULIN ASPART 100 UNITS/ML 3 ML PEN SC SCH ×2 (06:17→13:07)
[2019-08-03] MEDS: PANTOprazole 40 MG TAB PO SCH (06:18)
[2019-08-03] MEDS: LEVOTHYROXINE SODIUM 25 MCG TABLET PO SCH (06:18)
[2019-08-03] MEDS: ALBUT/IPRATROP 3MG/0.5MG NEB 3 ML VIAL NEB SCH ×2 (07:09→15:05)
[2019-08-03] MEDS: ACETYLCYSTEINE 20% INHAL SOLN 4ML ***DISPENSED BY RESP. INH SCH (07:10)
--- NOTE | 2019-08-03 07:31 | Gastrointestinal Consultation ---
Date of Consultation August 03, 2019 Assessment & Plan (1) Esophageal dysphagia: Would defer EGD during this worsening of her respiratory status. Also as EGD was normal in September 2018 unlikely that there would be significant structural abnormalities on EGD. Most likely this represents a functional disorder: Poor esophageal motility. Recommend 1. Slippery diet 2. Soft foods, especially in light of no dentures or teeth. 3. Chew thoroughly. 4. Avoid distractions 5. Follow each swallow with a sip of liquid. 6. Avoid extremely hot and cold liquids. 7. Regarding pill dysphasia, speak with the pharmacist asking for a slippery formulation such as a capsule, if not available ask if she can cut the pills in half or crush. Consider taking with applesauce. 8. If symptoms persist or worsen, patient should make an outpatient GI appointment. She was given our scheduling number to call. At that time we would consider repeat EGD and esophageal manometry. The esophageal manometry test was described in detail. Patient was unsure if she would be able to tolerate this testing. 9. GI will sign off. Please call us if new or worsening GI symptoms. Present on Admission?: Yes Supervising Physician Co-Signing Physician Notes Attending attestation I have seen, examined this patient, and agree with the findings and above by our mid-level provider LINETTE Kwok, with the following additions -Doing well now and does not want to seek additional care, contacts were provided for her to contact our office if symptoms return History of Present Illness Reason for Consultation: globus pharyngeus, achalasia Requesting Physician: Dr. Cobian Attending Physician: Brian Cobian MD History of Present Illness Ms. Jeannette Licona is a 68 yr old female pt of Dr. Vizcarra with a hx of COPD, BERNA, chronic respiratory failure on 2L NC O2 at home, HTN, CKD III, depression, anxiety, PTSD, hypothyroidism and hx of bilateral breast cancer S/P mastectomies and chemoradiation who was admitted on 07/29/19 for failed OP tx of a COPD exacerbation with cc being cough and SOB. GI is consulted for "globus pharyngeus/achalasia." She tells me that EGD which was completed in September 2018 once for epigastric pain, and that this difficulty swallowing began a few months ago when her COPD worsened. Prior to admission she was on O2 at 2 L/min , but since admission has had significant respiratory improvement and today does not need any oxygen. She feels like she has "a lot of mucus" in her throat and she describes a globus sensation at the base of the throat which is continual regardless of eating or drinking. She also describes that meats and "sharp" foods feel like they get stuck at the base of the throat. On a few occasions she has vomited the food back up a minute or so after having swallowed it. She also mentions a feeling of pills, "getting stuck." Liquidy foods such as soup do not seem to cause a problem. No severe chest pain or pressure; no burning or significantly painful swallowing. No typical reflux symptoms. She was started on Protonix recently and has not noticed a change in her symptoms yet. Previously she was on ranitidine. She does not have teeth and does not wear dentures, but eats all consistencies of food. She underwent video swallow in 07/31/19 w/o aspiration but with esophageal dysmotility and "cricopharyngeal achalasia." EGD in September 2018 for epigastric pain by Dr. Myles was normal. Allergies Allergy/AdvReac Type Severity Reaction Status Date / Time hydralazine Allergy Intermediate joint pain Verified 07/29/19 11:19 tetracycline Allergy Mild RASH Verified 07/29/19 11:19 amlodipine AdvReac Mild Edema. Verified 07/29/19 11:19 Home Medications Home Medications Medication Instructions Recorded Confirmed Type levothyroxine [Synthroid] 62.5 mcg PO QAM 08/21/18 07/29/19 History fluticasone propionate [Flonase 2 sprays INTRANASAL DAILY 09/09/18 07/29/19 History Allergy Relief] Oxygen Home #1 ea 03/09/19 04/24/19 History aspirin 81 mg tablet,delayed 81 mg PO DAILY #30 tab 03/09/19 07/29/19 History release inhalational spacing device #1 ea 03/09/19 04/24/19 History tiotropium bromide 2.5 2 puffs INHALATION DAILY #1 gm 03/09/19 07/29/19 History mcg/actuation mist for inhalation atorvastatin 40 mg tablet 40 mg PO DAILY 03/12/19 07/29/19 History furosemide 20 mg tablet 20 mg PO QAM #30 tab 03/14/19 07/29/19 Rx albuterol sulfate 2.5 mg INHALATION Q4H PRN 07/29/19 07/29/19 History albuterol sulfate [Ventolin HFA] 2 inha INH Q4H PRN 07/29/19 07/29/19 History azelastine 1 spray INTRANASAL BID 07/29/19 07/29/19 History benzonatate [Tessalon Perles] 100 mg PO TID PRN 07/29/19 07/29/19 History budesonide [Pulmicort] 0.5 mg INHALATION DAILY 07/29/19 07/29/19 History buspirone 15 mg PO BID 07/29/19 07/29/19 History cholecalciferol (vitamin D3) 50,000 unit PO WK 07/29/19 07/29/19 History [Vitamin D3] clonidine HCl [Catapres] 0.1 mg PO HS PRN 07/29/19 07/29/19 History codeine-guaifenesin [G Tussin AC] 5 ml PO TID PRN 07/29/19 07/29/19 History diltiazem HCl [Cardizem] 120 mg PO BID 07/29/19 07/29/19 History donepezil [Aricept] 5 mg PO UD 07/29/19 07/29/19 History famotidine [Pepcid] 20 mg PO DAILY 07/29/19 07/29/19 History hydrochlorothiazide 12.5 mg PO DAILY 07/29/19 07/29/19 History loratadine [Claritin] 10 mg PO DAILY 07/29/19 07/29/19 History losartan [Cozaar] 100 mg PO QAM 07/29/19 07/29/19 History mometasone-formoterol [Dulera] 2 puff INHALATION BID 07/29/19 07/29/19 History montelukast [Singulair] 10 mg PO HS 07/29/19 07/29/19 History ybblkreb-tio-ozvk-FA-lutein 1 tab PO DAILY 07/29/19 07/29/19 History [Multivitamin Women 50 Plus] pantoprazole [Protonix] 40 mg PO DAILYBB 07/29/19 07/29/19 History pramipexole [Mirapex] 0.25 mg PO DAILY 07/29/19 07/29/19 History sertraline [Zoloft] 100 mg PO QAM 07/29/19 07/29/19 History trazodone 50 mg PO HS 07/29/19 07/29/19 History Patient History Medical History Anxiety and depression (Chronic) Axillary lymphadenopathy Chronic respiratory failure with hypoxia (Chronic) CKD (chronic kidney disease), stage III COPD (chronic obstructive pulmonary disease) History of breast cancer HTN (hypertension) (Chronic) Hyperlipidemia Hypothyroidism (Chronic) ILD (interstitial lung disease) (Acute) Mild cognitive impairment BERNA (obstructive sleep apnea) Prediabetes Restless legs syndrome Surgical History S/P mastectomy S/P mastectomy, bilateral (Resolved) Family History Sister Myocardial infarction Sister Stroke Social History Preferred Language: Togolese Communication Ability: Effective Student Required: No Beliefs That Will Affect Care: None marital status: Current Living Situation: Alone Other Information That Helps Us Care for You: No Feels Safe at Home: Yes Safety Concerns: Feels Safe At This Time Smoking Status: Former smoker Do You Dip or Chew Tobacco: No ; Number of Years Since Quit: 9 ; Second Hand Exposure: No ; Tobacco Cessation Education Requested by Patient: No Hx Alcohol Use: No Hx Substance Use: No Review of Systems Review of Systems: ROS: Gen: Denies weakness, fevers, weight loss Eyes: No eye redness, or pain, no recent vision changes Resp:+ SOB, + cough Cardio: No palpitations/irregular beats, no chest pain GI: See HPI otherwise negative : Denies pain on urination Skin: No jaundice, itching or new rashes Physical Exam Constitutional: WD/WN, vitals as above Eyes: PERRL, conjunctivae normal, anicteric sclerae ENMT: external ear and nose normal, oropharynx normal Neck: trachea midline, no thyromegaly Respiratory: normal respiratory effort Auscultation: + wheezes (throughout); no crackles and no rales While resting Cardiovascular: RRR, no murmur, no edema Gastrointestinal (Abdomen): normal bowel sounds, soft, nontender, no hepatosplenomegaly Skin: no rashes, warm and dry Neurologic: PERRL, EOMI, accommodation nl, no face palsy, no dysarthria Psychiatric: A+Ox3, euthymic affect Results & Data Vital Signs (Past 12 Hours) Vital Signs Temp Pulse Pulse Resp BP Pulse Ox 08/03/19 07:12 78 19 96 08/03/19 04:38 36.5 C 76 20 161/89 H 95 08/03/19 03:35 66 08/03/19 00:18 36.9 C 73 20 179/71 H 94 08/02/19 20:18 77 08/02/19 19:52 36.4 C L 85 20 155/80 H 94 08/02/19 19:30 83 18 94 Laboratory Results WBC 13, hemoglobin 11, hematocrit 33, platelets 239, glucose 133 Diagnostic Findings Video Swallow: 1. No aspiration identified. 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 Please see the speech pathologist report for detailed findings and recommendations.
[2019-08-03 08:23] LABS: Appearance Urine Clear (Clear); Bacteria Urine Automated 3+ (Negative); Bilirubin Urine Negative (Negative); Blood Urine Negative (Negative); Cast Urine Automated 0 /lpf (0-5); Color Urine Yellow; Epithelial Cell Urine Auto 0-5 /lpf (0-5); Glucose Urine UA Negative (Negative); Ketones Urine Negative (Negative); Leukocyte Esterase Urine 2+ (Negative); Nitrite Urine Positive (Negative); Protein Urine Negative (Negative); RBC Urine Automated 0-4 /hpf (0-4); Specific Gravity Urine 1.013 (1.000-1.030); Urobilinogen Urine Negative (Negative); pH Urine 6.5 (4.5-7.5)
[2019-08-03] MEDS: FLUTICASONE/VILANTEROL 100/25MCG 14 PUFFS/INHALER INH SCH (08:31)
[2019-08-03] MEDS: LOSARTAN POTASSIUM 50 MG TAB PO SCH (08:31)
[2019-08-03] MEDS: BusPIRone 15 MG TAB PO SCH (08:31)
[2019-08-03] MEDS: LORATADINE 10 MG TAB PO SCH (08:31)
[2019-08-03] MEDS: dilTIAZem HCl 60 MG TAB PO SCH (08:31)
[2019-08-03] MEDS: ASPIRIN 81 MG ECTAB PO SCH (08:32)
[2019-08-03] MEDS: hydroCHLOROthiazide 25 MG TAB PO SCH (08:32)
[2019-08-03] MEDS: FLUTICASONE PROPIONATE NA SPR 16 GM BTL NAE SCH (08:32)
[2019-08-03] MEDS: guaiFENesin 600 MG TABCR PO SCH (08:33)
[2019-08-03] MEDS: SERTRALINE HCL 100 MG TABLET PO SCH (08:33)
[2019-08-03] MEDS: FUROSEMIDE 20 MG TAB PO SCH (08:33)
[2019-08-03] MEDS: FAMOTIDINE 20 MG TAB PO SCH (08:33)
[2019-08-03] MEDS: ATORVASTATIN 40 MG TAB PO SCH (08:33)
[2019-08-03] MEDS: CEROVITE ADV FORMULA TAB PO SCH ×2 (08:33→08:47)
[2019-08-03] MEDS: LIDOCAINE 5% 1 PATCH TD SCH (08:33)
[2019-08-03] MEDS: predniSONE 20 MG TAB PO SCH (08:33)
[2019-08-03] MEDS ORDERED: cloNIDine HCL 0.1 MG TAB PO SCH (09:00)
[2019-08-03 09:51] LABS: Allen Test Pos (Pos); Base Excess ABG 4.1 mEq/L (-9-1.8); HCO3 ABG 27 mmol/L (19-24); Oxygen Saturation ABG 93.4 % (90-95); PCO2 ABG 36 mmHg (35-46); PO2 ABG 63 mmHg (80-95); pH ABG 7.49 (7.35-7.45)
--- NOTE | 2019-08-03 14:14 | Hospitalist Progress Note ---
Date of Service August 03, 2019 Assessment & Plan (1) COPD exacerbation: (1) Chronic respiratory failure with hypoxia: Acute on chronic hypoxic respiratory failure per Dr. Edwards's notes: -This is a 68yo F with a PMH of COPD and IPF, chronic respiratory failure on 2L NC O2, HTN, CKD III, depression, anxiety, PTSD, hypothyroidism and other medical problems listed below who presents with progressive SOB x 1 month who was found to have COPD exacerbation. -Progressively worsening cough, wheezing and dyspnea on exertion in the setting of COPD and IPF -At oxygen baseline saturating 97% on 2L -CXR with cardiomegaly without overt pulmonary edema. Emphysema with chronic interstitial coarsening. No evidence of pneumonia -Given albuterol breathing treatment x 2, IV solu-medrol 125mg x 1 -admitting team on 07/29/2019 starting azithromycin course, prednisone 40mg x 5 days, duonebs QIDR, cough suppressant, Continue albuterol inhaler PRN, Dulera, Singulair --Respiratory symptoms resolved Medical Insurance Clerk consulted-patient was placed on prednisone, azithromycin x5 days, nebulizer treatments Continue prednisone taper at home 40 mg 1 day, 20 mg x 2 days, then stop Nebs as needed continue usual bronchidilators on discharge Follow-up with refrigerating engineer head Dr. Waggoner next week as scheduled (2) COPD exacerbation: COPD with severe emphysema Interstitial lung disease -- management as noted above ff up with Medical Insurance Clerk upon discharge Cricopharyngeal achalasia as cause of Dysphagia -as per video swallow evaluation on 07/31/2019 -Speech therapist recommend soft and bite sized food -Applied Exercise Physiologist consulted, deferring EGD at this time until respiratory status stabilizes-felt to be secondary to functional disorder: Poor esophageal motility -Recommend slippery diet, soft foods, possible conversion of pills from tablet to capsule form, etc. (for recommendation discharge instructions) Left Upper Arm Edema, Pain - Left Upper Ext US: no DVT, no mass, no fluid collection - Gen Surgery consulted--> recommend Ortho consult--> felt to be muscular in etiology, symptomatic management recommended -Improving, continue pain control, ice packs -Follow closely as outpatient (3) BERNA (obstructive sleep apnea): -Patient needs to follow-up with refrigerating engineer head to obtain CPAP again (4) Insomnia: -Continue Trazodone (5) HTN (hypertension): Blood pressure elevation noted while inpatient -Clonidine 0.1 mg p.o. ordered as patient has leg edema with amlodipine and has hives with hydralazine, cannot recommend beta-jason at this point due to COPD exacerbation continue hctz, losartan -Monitor and titrate blood pressure medications as an outpatient (6) Anxiety and depression: Continue sertraline Added PRN Vistaril--> monitor Patient instructed to take medications as directed and she verbalized understanding (7) CKD (chronic kidney disease), stage III: monitor (8) History of breast cancer: S/p mastectomy and chemo treatment -In remission Disposition Discharge to home with home health services today Follow-up with primary care physician as outlined in discharge instructions Follow-up with [facility] next week as scheduled Subjective Follow-up for copd exacerbation Seen sitting up in bed, comfortable, not in distress States she feels much better overall Denies shortness of breath, coughing, chest pain Left upper arm pain improving, no fever or chills Dysphagia is also improving today States she is ready and would like to be discharged today Denies other symptoms Review of Systems Review of Systems: All systems reviewed & are unremarkable except as noted in HPI & below Physical Exam Physical Exam: General- oriented x 3, not in distress, speaks in sentences with no effort or accessory muscle use Eyes- anicteric Neck- no JVD Lungs- clear breath sounds, no crackles, no wheezing bilaterally Heart- normal rate, regular rhythm; no murmurs Abdomen- normal bowel sounds, nondistended, soft, nontender Extremities- Left upper arm deltoid region-minimal edema, no warmth no erythema no tenderness, full range of motion of the right shoulder no pretibial edema, no calf tenderness Neuro- alert, oriented x 3; no gross focal neurologic deficits Skin- warm & dry Results & Data ([facility]) Vital Signs (Past 12 Hours) Vital Signs Temp Pulse Pulse Resp BP Pulse Ox 08/03/19 11:43 36.9 C 66 18 155/74 H 93 08/03/19 10:08 73 08/03/19 08:30 66 167/72 H 90 08/03/19 08:00 63 08/03/19 07:12 78 19 96 08/03/19 04:38 36.5 C 76 20 161/89 H 95 08/03/19 03:35 66
--- NOTE | 2019-08-03 14:57 | Discharge Summary ---
Date of Service August 03, 2019 Admission HPI Per Admitting Provider This is a 68yo F with a PMH of COPD and IPF, chronic respiratory failure on 2L NC O2, HTN, CKD III, depression, anxiety, PTSD, hypothyroidism and other medical problems listed below who presents with progressive SOB x 1 month. Symptoms improved after PCP prescribed Levaquin and 1 month prednisone taper back in June, but began feeling worse again over the past few weeks. Cough is persistent yet dry and cough suppressants have not been helping. Continues to experience dyspnea on exertion and pleuritic chest pain as well as wheezing. Also experiencing burning cramps in bilateral legs. Denies fever or chills. Has been using inhales at home as well as nebulizer treatments four times a day. Endorses recent sick contacts in the past few weeks. No lightheadedness, visual changes, palpitations, hemoptysis, nausea, vomiting, abdominal pain, dysuria, diarrhea or constipation. Admission Exam Per Admitting Provider General- oriented x 3, not in distress, speaks in sentences with no effort or accessory muscle use Eyes- anicteric Neck- no JVD Lungs- clear breath sounds, no crackles, no wheezing bilaterally Heart- normal rate, regular rhythm; no murmurs Abdomen- normal bowel sounds, nondistended, soft, nontender Extremities- Left upper arm deltoid region-minimal edema, no warmth no erythema no tenderness, full range of motion of the right shoulder no pretibial edema, no calf tenderness Neuro- alert, oriented x 3; no gross focal neurologic deficits Skin- warm & dry Principal Diagnosis COPD exacerbation Discharge Exam General- oriented x 3, not in distress, speaks in sentences with no effort or accessory muscle use Eyes- anicteric Neck- no JVD Lungs- clear breath sounds, no crackles, no wheezing bilaterally Heart- normal rate, regular rhythm; no murmurs Abdomen- normal bowel sounds, nondistended, soft, nontender Extremities- Left upper arm deltoid region-minimal edema, no warmth no erythema no tenderness, full range of motion of the right shoulder no pretibial edema, no calf tenderness Neuro- alert, oriented x 3; no gross focal neurologic deficits Skin- warm & dry Discharge Data Allergies Allergy/AdvReac Type Severity Reaction Status Date / Time hydralazine Allergy Intermediate joint pain Verified 07/29/19 11:19 tetracycline Allergy Mild RASH Verified 07/29/19 11:19 amlodipine AdvReac Mild Edema. Verified 07/29/19 11:19 Consultations 07/29/19 13:22 ED Decision to Admit Stat 07/30/19 07:22 Consult Case Management - Discharge Planning Routine 07/30/19 08:22 Consult Pulmonology Routine 08/01/19 12:54 Consult General Surgery Routine 08/01/19 16:50 Consult Orthopedic Surgery Routine 08/02/19 16:44 Consult Gastroenterology Routine Ordered Studies 07/31/19 13:45 FL video swallow Routine 08/01/19 04:34 US venous doppler UE LT Urgent 08/01/19 14:26 US extremity nonvascular Routine Hospital Course (1) COPD exacerbation: Chronic respiratory failure with hypoxia: Acute on chronic hypoxic respiratory failure per Dr. Edwards's notes: -This is a 68yo F with a PMH of COPD and IPF, chronic respiratory failure on 2L NC O2, HTN, CKD III, depression, anxiety, PTSD, hypothyroidism and other medical problems listed below who presents with progressive SOB x 1 month who was found to have COPD exacerbation. -Progressively worsening cough, wheezing and dyspnea on exertion in the setting of COPD and IPF -At oxygen baseline saturating 97% on 2L -CXR with cardiomegaly without overt pulmonary edema. Emphysema with chronic interstitial coarsening. No evidence of pneumonia -Given albuterol breathing treatment x 2, IV solu-medrol 125mg x 1 -admitting team on 07/29/2019 starting azithromycin course, prednisone 40mg x 5 days, duonebs QIDR, cough suppressant, Continue albuterol inhaler PRN, Dulera, Singulair --Respiratory symptoms resolved Hat Measurer consulted-patient was placed on prednisone, azithromycin x5 days, nebulizer treatments Continue prednisone taper at home 40 mg 1 day, 20 mg x 2 days, then stop Nebs as needed continue usual bronchidilators on discharge Follow-up with binder stripper machine Dr. Waggoner next week as scheduled COPD exacerbation: COPD with severe emphysema Interstitial lung disease -- management as noted above ff up with [employer] upon discharge Cricopharyngeal achalasia as cause of Dysphagia -as per video swallow evaluation on 07/31/2019 -Speech therapist recommend soft and bite sized food -Wrapping Machine Helper consulted, deferring EGD at this time until respiratory status stabilizes-felt to be secondary to functional disorder: Poor esophageal motility -Recommend slippery diet, soft foods, possible conversion of pills from tablet to capsule form, etc. (for recommendation discharge instructions) Left Upper Arm Edema, Pain - Left Upper Ext US: no DVT, no mass, no fluid collection - Gen Surgery consulted--> recommend Ortho consult--> Shoulder xray: IMPRESSION: Mild degenerative changes acromioclavicular joint. Otherwise negative study. Humerus xray: IMPRESSION: 1. No fractures identified 2. No destructive lesions are visualized felt to be muscular in etiology, symptomatic management recommended -Improved, continue ice packs -Follow closely as outpatient BERNA (obstructive sleep apnea): -Patient needs to follow-up with binder stripper machine to obtain CPAP again Insomnia: -Continue Trazodone HTN (hypertension): Blood pressure elevation noted while inpatient -Clonidine 0.1 mg p.o. BID prescribed as patient has leg edema with amlodipine and has hives with hydralazine, cannot recommend beta-jason at this point due to COPD exacerbation continue hctz, losartan -Monitor and titrate blood pressure medications as an outpatient Anxiety and depression: Continue sertraline Added PRN Vistaril--> monitor Patient instructed to take medications as directed and she verbalized understanding CKD (chronic kidney disease), stage III: monitor History of breast cancer: S/p mastectomy and chemo treatment -In remission Disposition Discharge to home with home health services Follow-up with primary care physician as outlined in discharge instructions [facility] as scheduled Total Time Total Time Spent Total Time Spent (In Minutes): 50 minutes Discharge Plan Discharge Items Patient Disposition: Home - Home Health Services Reason For Visit: COPD EXACERBATION Discharge Diagnosis: Acute on chronic hypoxic respiratory failure COPD with severe emphysema Interstitial lung disease Obstructive Sleep Apnea cricopharyngeal achalasia as cause of Dysphagia HTN (hypertension) CKD (chronic kidney disease), stage III Activity: Resume your previous activity Activity Comment: Resume activity gradually as tolerated Lifting: Wait until after follow-up appointment Exercise/Sports: Wait until after follow-up appointment Driving/Machine Use: No driving Non-emergency contact: Primary Care Provider Call non-emergency contact if: you have any medication questions, your symptoms worsen, your pain is not controlled, your pain is worsening, your pain is unusual for you, your pain is concerning for you and you have a fever Follow-up/Referrals: Sixto Waggoner MD [Physician] - Cristina Vizcarra MD [Primary Care Provider] - 08/09/19 10:45 am Diet: Carb Consistent or DM2 and Heart Healthy Addtl Attending Provider Instructions: Please call primary care physician or return to the ER immediately if with recurrence or worsening of symptoms. Please follow-up with primary care physician as noted above. Please follow-up with binder stripper machine in 1 week. GI recommendations: 1. Slippery diet 2. Soft foods, especially in light of no dentures or teeth. 3. Chew thoroughly. 4. Avoid distractions 5. Follow each swallow with a sip of liquid. 6. Avoid extremely hot and cold liquids. 7. Regarding pill dysphasia, speak with the pharmacist asking for a slippery formulation such as a capsule, if not available ask if she can cut the pills in half or crush. Consider taking with applesauce. 8. If symptoms persist or worsen, patient should make an outpatient GI appointment. Speech Therapy recommendations: Pending Studies at Discharge: Yes Studies:: Arrangements to obtain CPAP Stand-Alone Forms: [facility] [employer], Smoking Cessation Medications and DC Order Prescriptions: New clonidine HCl 0.1 mg Tablet 0.1 mg PO BID 30 Days Qty: 60 RF: 2 ibuprofen 400 mg tablet 400 mg PO Q6H PRN (Reason: pain) Qty: 14 RF: 0 prednisone 20 mg tablet 20 mg PO UD 3 Days Qty: 4 RF: 0 hydroxyzine pamoate [Vistaril] 25 mg capsule 25 mg PO Q8H PRN (Reason: anxiety attack) Qty: 8 RF: 0 Continued furosemide [Lasix] 20 mg tablet 20 mg PO QAM Qty: 30 RF: 2 (DME) Vortex Holding Chamber spacer See Dose Instructions .ROUTE .MEDSUPPLY Qty: 1 RF: 0 Spiriva Respimat 2.5 mcg/actuation mist 2 puffs inhalation DAILY Qty: 1 RF: 0 (DME) Oxygen Home Liters Per Minute See Dose Instructions .ROUTE .MEDSUPPLY Qty: 1 RF: 0 aspirin 81 mg tablet,delayed release (DR/EC) 81 mg PO DAILY Qty: 30 RF: 0 atorvastatin [Lipitor] 40 mg tablet 40 mg PO DAILY RF: 0 levothyroxine [Synthroid] 125 mcg Tablet 62.5 mcg PO QAM RF: 0 fluticasone propionate [Flonase Allergy Relief] 50 mcg/actuation spray,suspension 2 sprays intranasal DAILY RF: 0 benzonatate [Tessalon Perles] 100 mg Capsule 100 mg PO TID PRN (Reason: Cough) RF: 0 pantoprazole [Protonix] 40 mg tablet,delayed release (DR/EC) 40 mg PO DAILYBB RF: 0 budesonide [Pulmicort] 0.5 mg/2 mL Suspension For Nebulization 0.5 mg INHALATION DAILY RF: 0 codeine-guaifenesin [G Tussin AC] 10-100 mg/5 mL Liquid 5 ml PO TID PRN (Reason: Cough) RF: 0 azelastine 137 mcg (0.1 %) aerosol,spray 1 spray INTRANASAL BID RF: 0 loratadine [Claritin] 10 mg Tablet 10 mg PO DAILY RF: 0 buspirone 15 mg tablet 15 mg PO BID RF: 0 Dulera 200-5 mcg/actuation Hfa Aerosol Inhaler 2 puff INHALATION BID RF: 0 Multivitamin Women 50 Plus 8 mg iron-400 mcg-300 mcg Tablet 1 tab PO DAILY RF: 0 albuterol sulfate 2.5 mg /3 mL (0.083 %) solution for nebulization 2.5 mg inhalation Q4H PRN (Reason: Wheezing) RF: 0 diltiazem HCl [Cardizem] 120 mg tablet 120 mg PO BID RF: 0 hydrochlorothiazide 12.5 mg capsule 12.5 mg PO DAILY RF: 0 cholecalciferol (vitamin D3) [Vitamin D3] 125 mcg (5,000 unit) Tablet 50,000 unit PO WK RF: 0 donepezil [Aricept] 5 mg tablet 5 mg PO UD RF: 0 trazodone 50 mg tablet 50 mg PO HS RF: 0 sertraline [Zoloft] 100 mg tablet 100 mg PO QAM RF: 0 famotidine [Pepcid] 20 mg tablet 20 mg PO DAILY RF: 0 pramipexole [Mirapex] 0.25 mg tablet 0.25 mg PO DAILY RF: 0 montelukast [Singulair] 10 mg tablet 10 mg PO HS RF: 0 albuterol sulfate [Ventolin HFA] 90 mcg/actuation HFA aerosol inhaler 2 inha INH Q4H PRN (Reason: Wheezing) RF: 0 losartan [Cozaar] 100 mg tablet 100 mg PO QAM RF: 0 Discontinued clonidine HCl [Catapres] 0.1 mg tablet 0.1 mg PO HS PRN (Reason: Insomnia) RF: 0 Discharge Orders: Discharge Order (Routine); Ordered 08/03/19 Ordered By: Brian Cobian Admission Data Admit Date/Time: 07/30/19 17:04 Attending Provider: Brian Cobian Admit Provider: Caterina Calderon I. Primary Care Provider: Cristina Vizcarra Other Providers: Caterina Calderon I. ; Heaven Ly ; [facility] ; Lance Edwards ; Emeka Ramires ; Dangelo Shen ; Alfonso Up Other Interventions: Discharge Summary Assessment (RN) Last Done: 08/03/19 15:36 DC Date/Time DO NOT enter until pt leaves facility: 08/03/19 17:15
[2019-08-03] MEDS ORDERED: INSULIN ASPART 100 UNITS/ML 3 ML PEN SC SCH (16:30)
[2019-08-05] MEDS ORDERED: ERGOCALCIFEROL 50,000 UNITS CAP PO SCH (09:00)
[2019-08-05] MEDS ORDERED: CHOLECALCIFEROL 50000 UNIT PO SCH (09:00)
== END 2019-08-03 17:15 | disposition home health service (06) | DRG 190 ==
LOC: ED 10:07 → 2N 10:07 → SUATTDRO 13:58 → 2N 14:31 → SUATTDRO 07-30 17:04 → 2N 08-03 09:32

== ENCOUNTER 2019-12-06 22:49 | Inpatient (IN) ==
[2019-12-06] MEDS ORDERED: ASPIRIN CHEW 324 MG PO STA (23:05)
[2019-12-06 23:16] LABS: Basophils # (auto) 0.03 K/uL (0-0.2); Basophils % (auto) 0.4 %; Eosinophils # (auto) 0.11 K/uL (0-0.5); Eosinophils % (auto) 1.6 %; Hematocrit (blood only) 42.6 % (37-47); Hemoglobin 13.6 g/dL (12.0-16.0); Immature Granulocytes # (auto) 0.02 K/uL (0.00-0.02); Immature Granulocytes % (auto) 0.3 %; Lymphocytes # (auto) 2.57 K/uL (1.2-3.4); Lymphocytes % (auto) 36.9 %; Mean Corpuscular Hemoglobin 28.6 pg (25-34); Mean Corpuscular Hgb Conc 31.9 g/dL (32-36); Mean Corpuscular Volume 89.7 fL (80-100); Mean Platelet Volume 9.3 fL (7.4-10.4); Monocytes # (auto) 0.65 K/uL (0.11-0.59); Monocytes % (auto) 9.3 %; Neutrophils # (auto) 3.58 K/uL (1.4-6.5); Neutrophils % (auto) 51.5 %; Platelet Count 287 K/uL (130-400); RDW Coefficient of Variation 14.6 % (11.5-14.5); Red Blood Count 4.75 M/uL (4.2-5.4); White Blood Count 6.96 K/uL (4.8-10.8)
[2019-12-06] MEDS ORDERED: methylPREDNISolone 125 MG/2 ML VIAL IV STA (23:19)
[2019-12-06] MEDS ORDERED: ALBUT/IPRATROP 3MG/0.5MG NEB 3 ML VIAL NEB STA (23:19)
[2019-12-06 23:26] LABS: Partial Thromboplastin Time 28.5 Seconds (21.0-31.0); Prothrombin Time 10.7 Seconds (9.0-12.0)
[2019-12-06 23:36] LABS: Alanine Aminotransferase 34 U/L (12-78); Albumin Level 3.8 gm/dl (3.4-5.0); Aspartate Aminotransferase 19 U/L (15-37); BUN Creatinine Ratio 13.4 (10-20); Blood Urea Nitrogen 14 mg/dl (7-18); Calcium 9.8 mg/dl (8.5-10.1); Carbon Dioxide 28 mmol/L (21-32); Chloride 107 mmol/L (98-107); Creatinine Clr Calc Pharmacy 56.3 ml/min; Est GFR (African American) 63.3; Est GFR (Non-African American) 54.6; Glucose 112 mg/dl (70-99); Lipase 110 U/L (73-393); Potassium 3.4 mmol/L (3.5-5.1); Sodium 142 mmol/L (136-145)
[2019-12-06 23:40] LABS: Alkaline Phosphatase 110 U/L (45-117); Bilirubin,Total 0.4 mg/dl (0.2-1); Globulin 3.8 gm/dl (2.5-4.0); Total Protein 7.6 gm/dl (6.4-8.2); Troponin I < 0.015 ng/ml (0-0.045)
--- NOTE | 2019-12-06 23:59 | Emergency Department Note ---
History of Present Illness General Chief complaint: Chest Pain Stated complaint: CHEST PAIN Source: patient and RN notes reviewed Mode of arrival: EMS Limitations: no limitations History of Present Illness Provider complaint: Chest pain, hypertension Onset (ago): day(s) 3 Maximum Pain Intensity: 5 This patient is a 69-year-old female who presents emergency department with complaints of high blood pressure, increasing shortness of breath and chest discomfort. Patient states she has bad lungs including a history of COPD, asthma and pulmonary fibrosis. Patient states she normally wears oxygen at home. She denies any fevers or productive cough. Patient states her shortness of breath is most notable with any amount of exertion. She did take aspirin prior to arrival and has only a mild discomfort in the chest at this time. She denies any significant radiation of the pain. Home Medications Home Medications Medication Instructions Recorded Confirmed Type Oxygen Home #1 ea 03/09/19 08/15/19 History aspirin 81 mg tablet,delayed 81 mg PO QAM #30 tab 03/09/19 12/06/19 History release inhalational spacing device #1 ea 03/09/19 08/15/19 History atorvastatin 40 mg tablet 40 mg PO HS 03/12/19 12/06/19 History albuterol sulfate [Ventolin HFA] 2 inha INH Q4H PRN 07/29/19 12/06/19 History azelastine 1 spray INTRANASAL BID PRN 07/29/19 12/07/19 History buspirone 15 mg PO HS 07/29/19 12/07/19 History donepezil [Aricept] 5 mg PO DAILY 07/29/19 12/06/19 History loratadine [Claritin] 10 mg PO QAM 07/29/19 12/06/19 History losartan [Cozaar] 100 mg PO QAM 07/29/19 12/06/19 History pantoprazole [Protonix] 40 mg PO DAILYBB 07/29/19 12/06/19 History trazodone 50 mg PO HS 07/29/19 12/07/19 History CPAP Machine #1 ea 08/06/19 08/15/19 Rx clonidine HCl [Catapres] 0.1 mg PO HS 08/12/19 12/07/19 History diltiazem HCl [Cartia XT] 180 mg PO QAM 08/12/19 12/06/19 History ipratropium 0.5 mg-albuterol 3 mg 3 ml INH Q8H PRN #180 ml 08/15/19 12/06/19 Rx (2.5 mg base)/3 mL nebulization soln tiotropium bromide 2.5 2 puffs INHALATION QAM #1 gm 08/15/19 12/06/19 Rx mcg/actuation mist for inhalation sertraline 100 mg tablet 100 mg PO QAM #30 tab 10/15/19 12/06/19 Rx fluticasone furoate-vilanterol 1 ea INHALATION DAILY PRN 12/06/19 12/07/19 History [Breo Ellipta] levothyroxine 112 mcg PO DAILY 12/06/19 12/06/19 History montelukast 10 mg PO HS 12/06/19 12/06/19 History furosemide [Lasix] 20 mg PO BID 12/07/19 12/07/19 History Allergies Allergy/AdvReac Type Severity Reaction Status Date / Time baclofen Allergy Severe Unknown Verified 12/07/19 01:29 cefuroxime Allergy Severe Hives and Unverified 12/07/19 01:29 Dizziness hydralazine Allergy Intermediate joint pain Verified 12/07/19 01:29 tetracycline Allergy Mild RASH Verified 12/07/19 01:29 amlodipine AdvReac Mild Edema. Verified 12/07/19 01:29 Past Med/Surg History Medical History Anxiety and depression (Chronic) Axillary lymphadenopathy Chronic respiratory failure with hypoxia (Chronic) CKD (chronic kidney disease), stage III COPD (chronic obstructive pulmonary disease) History of breast cancer HTN (hypertension) (Chronic) Hyperlipidemia Hypothyroidism (Chronic) ILD (interstitial lung disease) (Acute) Mild cognitive impairment BERNA (obstructive sleep apnea) Prediabetes Restless legs syndrome Surgical History S/P mastectomy S/P mastectomy, bilateral (Resolved) Family History Sister Myocardial infarction Sister Stroke Social History Preferred Language: Danish Communication Ability: Effective Middle 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 and A total of 10 systems reviewed and were otherwise negative Physical Exam Vital Signs Vital Signs - 24 hr 12/06/19 22:57 12/06/19 22:59 12/06/19 23:30 Temperature 36.5 C Temperature Source Oral Pulse Rate 93 H Pulse Rate [Right Finger] 88 Respiratory Rate 18 18 Respiratory Effort / Characteristics Non-Labored Non-Labored Non-Labored Spontaneous Respiratory Depth Normal Normal Respiratory Pattern Regular Blood Pressure 187/88 H Blood Pressure [Right Arm] Blood Pressure Mean 121 Blood Pressure Mean [Right Arm] Blood Pressure Position Lying Pulse Oximetry 91 96 Oxygen Delivery Method Room Air Room Air Room Air Oxygen Flow Rate Sepsis Recent Fever Within 48 Hours No Sepsis New/Unexplained Change in Mental Status No Sepsis Action Taken by Nursing No Action Required 12/07/19 00:45 12/07/19 02:00 12/07/19 04:00 Temperature Temperature Source Pulse Rate Pulse Rate [Right Finger] 81 88 79 Respiratory Rate 18 18 18 Respiratory Effort / Characteristics Non-Labored Spontaneous Respiratory Depth Normal Respiratory Pattern Regular Blood Pressure Blood Pressure [Right Arm] 151/101 H 165/89 H 164/89 H Blood Pressure Mean Blood Pressure Mean [Right Arm] 117 114 114 Blood Pressure Position Pulse Oximetry 96 95 95 Oxygen Delivery Method Nasal Cannula Nasal Cannula Nasal Cannula Oxygen Flow Rate 2 2 2 Sepsis Recent Fever Within 48 Hours Sepsis New/Unexplained Change in Mental Status Sepsis Action Taken by Nursing Vital signs reviewed. General: Well-appearing 69 yo female, in no significant distress. HEENT: No scleral icterus, PERRLA, neck supple. Atraumatic. Cardiovascular: Regular rate and rhythm, no extra sounds. Pulmonary: Clear to auscultation bilaterally, normal work of breathing. Abdomen: Soft, nontender, nondistended, positive bowel sounds. Musculoskeletal: Atraumatic, minimal peripheral edema. Neurologic: Patient awake alert and oriented x 3. Skin: Warm, dry, no rash Course Administered Medications Ioversol (Optiray 320 125ml) 125 ml IV ONCE PRN PRN Reason: Interaction Checking Stop: 12/11/19 02:56 Last Admin: 12/07/19 02:57 Dose: 83 ml Documented by: [id number] Discontinued Medications Albuterol (Duoneb) 3 ml NEB NOW STA Stop: 12/06/19 23:20 Last Admin: 12/06/19 23:29 Dose: 3 ml Documented by: [id number] Aspirin (Aspirin) 324 mg PO NOW STA Stop: 12/06/19 23:06 Last Admin: 12/06/19 23:23 Dose: Not Given Documented by: [id number] Clonidine HCl (Catapres) 0.1 mg PO NOW ONE Stop: 12/07/19 00:56 Last Admin: 12/07/19 01:10 Dose: 0.1 mg Documented by: [id number] Hydrocodone Bit/Homatropine Methylb (Hycodan) 10 ml PO NOW STA Stop: 12/07/19 01:40 Last Admin: 12/07/19 01:44 Dose: 10 ml Documented by: [id number] Magnesium Sulfate/Dextrose (Magnesium Sulfate / D5w) 1 gm in 100 mls @ 100 mls/hr IV ONE STA Stop: 12/07/19 05:00 Last Admin: 12/07/19 04:48 Dose: 100 mls/hr Documented by: [id number] Losartan Potassium (Cozaar) 100 mg PO NOW STA Stop: 12/07/19 02:07 Last Admin: 12/07/19 02:36 Dose: 100 mg Documented by: [id number] Methylprednisolone (Solumedrol) 125 mg IV NOW STA Stop: 12/06/19 23:20 Last Admin: 12/07/19 00:03 Dose: 125 mg Documented by: [id number] Potassium Chloride (Klor-Con M20) 40 meq PO NOW STA Stop: 12/07/19 02:06 Last Admin: 12/07/19 02:32 Dose: 40 meq Documented by: [id number] Medical Decision Making Differential Diagnosis DDx: Acute coronary syndrome, pulmonary embolus, aortic dissection, musculoskeletal pain, pneumonia, pleural effusion, pneumothorax, GERD, PUD Medical Records Attestation: I reviewed the patient's medical records. Home Medications Current Medication List: was personally reviewed by me Laboratory Data Attestation: I reviewed the patient's lab results. Result diagrams: 12/06/19 23:10 12/06/19 23:10 Lab Results 12/06/19 12/06/19 12/06/19 Range/Units 23:10 23:10 23:10 WBC 6.96 (4.8-10.8) K/uL RBC 4.75 (4.2-5.4) M/uL Hgb 13.6 (12.0-16.0) g/dL Hct 42.6 (37-47) % MCV 89.7 (80-100) fL MCH 28.6 (25-34) pg MCHC 31.9 L (32-36) g/dL RDW Std Deviation 48.0 H (36.4-46.3) fL RDW Coeff of Karel 14.6 H (11.5-14.5) % Plt Count 287 (130-400) K/uL MPV 9.3 (7.4-10.4) fL Immature Gran % (Auto) 0.3 % Neut % (Auto) 51.5 % Lymph % (Auto) 36.9 % Dickenson % (Auto) 9.3 % Eos % (Auto) 1.6 % Baso % (Auto) 0.4 % Immature Gran # (Auto) 0.02 (0.00-0.02) K/uL Neut # (Auto) 3.58 (1.4-6.5) K/uL Lymph # (Auto) 2.57 (1.2-3.4) K/uL Dickenson # (Auto) 0.65 H (0.11-0.59) K/uL Eos # (Auto) 0.11 (0-0.5) K/uL Baso # (Auto) 0.03 (0-0.2) K/uL PT 10.7 (9.0-12.0) Seconds INR 1.0 (0.9-1.1) APTT 28.5 (21.0-31.0) Seconds PTT Ratio 1.0 D-Dimer (0-500) ug/L FEU Sodium 142 (136-145) mmol/L Potassium 3.4 L (3.5-5.1) mmol/L Chloride 107 (98-107) mmol/L Carbon Dioxide 28 (21-32) mmol/L Anion Gap 7.0 (3-11) BUN 14 (7-18) mg/dl Creatinine 1.03 (0.6-1.2) mg/dl Est Cr Clr Drug Dosing 56.3 ml/min Est GFR ( Amer) 63.3 Est GFR (Non-Af Amer) 54.6 BUN/Creatinine Ratio 13.4 (10-20) Glucose 112 H (70-99) mg/dl Calcium 9.8 (8.5-10.1) mg/dl Magnesium (1.8-2.4) mg/dl Total Bilirubin 0.4 (0.2-1) mg/dl AST 19 (15-37) U/L ALT 34 (12-78) U/L Alkaline Phosphatase 110 (45-117) U/L Troponin I < 0.015 (0-0.045) ng/ml NT-Pro-B Natriuret Pep (0-900) pg/ml Total Protein 7.6 (6.4-8.2) gm/dl Albumin 3.8 (3.4-5.0) gm/dl Globulin 3.8 (2.5-4.0) gm/dl Albumin/Globulin Ratio 1.0 (0.9-2) Lipase 110 (73-393) U/L COVID-19 PCR (Negative) Influenza Type A (PCR) (Neg) Influenza Type B (PCR) (Neg) 12/06/19 12/07/19 12/07/19 Range/Units 23:10 01:08 03:50 WBC (4.8-10.8) K/uL RBC (4.2-5.4) M/uL Hgb (12.0-16.0) g/dL Hct (37-47) % MCV (80-100) fL MCH (25-34) pg MCHC (32-36) g/dL RDW Std Deviation (36.4-46.3) fL RDW Coeff of Karel (11.5-14.5) % Plt Count (130-400) K/uL MPV (7.4-10.4) fL Immature Gran % (Auto) % Neut % (Auto) % Lymph % (Auto) % Dickenson % (Auto) % Eos % (Auto) % Baso % (Auto) % Immature Gran # (Auto) (0.00-0.02) K/uL Neut # (Auto) (1.4-6.5) K/uL Lymph # (Auto) (1.2-3.4) K/uL Dickenson # (Auto) (0.11-0.59) K/uL Eos # (Auto) (0-0.5) K/uL Baso # (Auto) (0-0.2) K/uL PT (9.0-12.0) Seconds INR (0.9-1.1) APTT (21.0-31.0) Seconds PTT Ratio D-Dimer 1120 H* (0-500) ug/L FEU Sodium (136-145) mmol/L Potassium (3.5-5.1) mmol/L Chloride (98-107) mmol/L Carbon Dioxide (21-32) mmol/L Anion Gap (3-11) BUN (7-18) mg/dl Creatinine (0.6-1.2) mg/dl Est Cr Clr Drug Dosing ml/min Est GFR ( Amer) Est GFR (Non-Af Amer) BUN/Creatinine Ratio (10-20) Glucose (70-99) mg/dl Calcium (8.5-10.1) mg/dl Magnesium 1.9 (1.8-2.4) mg/dl Total Bilirubin (0.2-1) mg/dl AST (15-37) U/L ALT (12-78) U/L Alkaline Phosphatase (45-117) U/L Troponin I 0.017 (0-0.045) ng/ml NT-Pro-B Natriuret Pep 118 (0-900) pg/ml Total Protein (6.4-8.2) gm/dl Albumin (3.4-5.0) gm/dl Globulin (2.5-4.0) gm/dl Albumin/Globulin Ratio (0.9-2) Lipase (73-393) U/L COVID-19 PCR (Negative) Influenza Type A (PCR) Neg for Influ A (Neg) Influenza Type B (PCR) Neg for Influ B (Neg) 12/07/19 Range/Units 03:50 WBC (4.8-10.8) K/uL RBC (4.2-5.4) M/uL Hgb (12.0-16.0) g/dL Hct (37-47) % MCV (80-100) fL MCH (25-34) pg MCHC (32-36) g/dL RDW Std Deviation (36.4-46.3) fL RDW Coeff of Karel (11.5-14.5) % Plt Count (130-400) K/uL MPV (7.4-10.4) fL Immature Gran % (Auto) % Neut % (Auto) % Lymph % (Auto) % Dickenson % (Auto) % Eos % (Auto) % Baso % (Auto) % Immature Gran # (Auto) (0.00-0.02) K/uL Neut # (Auto) (1.4-6.5) K/uL Lymph # (Auto) (1.2-3.4) K/uL Dickenson # (Auto) (0.11-0.59) K/uL Eos # (Auto) (0-0.5) K/uL Baso # (Auto) (0-0.2) K/uL PT (9.0-12.0) Seconds INR (0.9-1.1) APTT (21.0-31.0) Seconds PTT Ratio D-Dimer (0-500) ug/L FEU Sodium (136-145) mmol/L Potassium (3.5-5.1) mmol/L Chloride (98-107) mmol/L Carbon Dioxide (21-32) mmol/L Anion Gap (3-11) BUN (7-18) mg/dl Creatinine (0.6-1.2) mg/dl Est Cr Clr Drug Dosing ml/min Est GFR ( Amer) Est GFR (Non-Af Amer) BUN/Creatinine Ratio (10-20) Glucose (70-99) mg/dl Calcium (8.5-10.1) mg/dl Magnesium (1.8-2.4) mg/dl Total Bilirubin (0.2-1) mg/dl AST (15-37) U/L ALT (12-78) U/L Alkaline Phosphatase (45-117) U/L Troponin I (0-0.045) ng/ml NT-Pro-B Natriuret Pep (0-900) pg/ml Total Protein (6.4-8.2) gm/dl Albumin (3.4-5.0) gm/dl Globulin (2.5-4.0) gm/dl Albumin/Globulin Ratio (0.9-2) Lipase (73-393) U/L COVID-19 PCR NEGATIVE (Negative) Influenza Type A (PCR) (Neg) Influenza Type B (PCR) (Neg) Imaging Data Attestation: I personally reviewed and interpreted this imaging study as follows: My Impression: Chest x-ray to my interpretation reveals evidence of cardiomegaly and pulmonary fibrotic change without significant change from previous. ECG Data Attestation: I personally reviewed and interpreted this ECG as follows: Indication: + SOB/dyspnea Rate (beats per minute): 73 Rhythm: + normal sinus ECG Intervals/blocks: + Normal QT-c ECG ST segments: + T-wave inversions (flattening/ Inferior) ECG Findings: + LVH; no PACs and no PVCs Blood Pressure Blood Pressure Findings: Elevated blood pressure Blood Pressure Disposition: Referred to patients primary care provider MDM Narrative This patient was evaluated and appeared to be in no significant distress. An order for cardiac monitoring was placed and the patient is found to be in a normal sinus rhythm at 75 bpm. Patient did receive aspirin prior to arrival. Laboratory work is fairly reassuring with a negative troponin. EKG reveals T wave flattening in the inferior leads and evidence of LVH without evidence of ST elevation. Patient was given a DuoNeb treatment and IV Solu-Medrol. She did have another episode of chest discomfort that was fleeting. Repeat troponin was ordered with a slight upward trend but remains negative. Patient was placed on her home O2 of 2 L/min. Case was discussed with the hospitalist service who will evaluate the patient for further management. Impression & Plan Substernal chest pain, CUMMINGS (dyspnea on exertion) Discharge Plan Visit Data Chief Complaint: Chest Pain Stated Complaint: CHEST PAIN ED Provider: Ruth Lynn Discharge Problem: Substernal chest pain, CUMMINGS (dyspnea on exertion) Forms Stand Alone Forms: My [facility] Prescriptions Prescriptions: No Action (DME) CPAP Machine Misc See Rx Instructions .ROUTE .MEDSUPPLY Qty: 1 RF: 0 sertraline [Zoloft] 100 mg tablet 100 mg PO QAM Qty: 30 RF: 3 (DME) Vortex Holding Chamber spacer See Dose Instructions .ROUTE .MEDSUPPLY Qty: 1 RF: 0 (DME) Oxygen Home Liters Per Minute See Dose Instructions .ROUTE .MEDSUPPLY Qty: 1 RF: 0 aspirin [Lo-Dose Aspirin] 81 mg tablet,delayed release (DR/EC) 81 mg PO QAM Qty: 30 RF: 0 atorvastatin [Lipitor] 40 mg tablet 40 mg PO HS RF: 0 Spiriva Respimat 2.5 mcg/actuation mist 2 puffs inhalation QAM Qty: 1 RF: 3 ipratropium-albuterol 0.5 mg-3 mg(2.5 mg base)/3 mL solution for nebulization 3 ml INH Q8H PRN (Reason: shortness of breath or wheezing) Qty: 180 RF: 2 clonidine HCl [Catapres] 0.1 mg tablet 0.1 mg PO HS RF: 0 diltiazem HCl [Cartia XT] 180 mg Capsule,Extended Release 24hr 180 mg PO QAM RF: 0 Breo Ellipta 200-25 mcg/dose blister with device 1 ea INHALATION DAILY PRN (Reason: Shortness Of Breath Or Wheezing) RF: 0 levothyroxine 112 mcg tablet 112 mcg PO DAILY RF: 0 montelukast 10 mg tablet 10 mg PO HS RF: 0 furosemide [Lasix] 20 mg tablet 20 mg PO BID RF: 0 pantoprazole [Protonix] 40 mg tablet,delayed release (DR/EC) 40 mg PO DAILYBB RF: 0 azelastine 137 mcg (0.1 %) aerosol,spray 1 spray INTRANASAL BID PRN (Reason: chronic sinusitis) RF: 0 loratadine [Claritin] 10 mg Tablet 10 mg PO QAM RF: 0 buspirone 15 mg tablet 15 mg PO HS RF: 0 donepezil [Aricept] 5 mg tablet 5 mg PO DAILY RF: 0 trazodone 50 mg tablet 50 mg PO HS RF: 0 albuterol sulfate [Ventolin HFA] 90 mcg/actuation HFA aerosol inhaler 2 inha INH Q4H PRN (Reason: Wheezing) RF: 0 losartan [Cozaar] 100 mg tablet 100 mg PO QAM RF: 0
[2019-12-07] MEDS ORDERED: cloNIDine HCL 0.1 MG TAB PO ONE (00:55)
[2019-12-07 01:38] LABS: Troponin I 0.017 ng/ml (0-0.045)
[2019-12-07] MEDS ORDERED: HYDROCODONE/HOMATROPINE SYRUP 5MG/1.5MG 5ML UDP PO STA (01:39)
[2019-12-07] MEDS ORDERED: POTASSIUM CHLORIDE 20 MEQ TABCR PO STA (02:05)
[2019-12-07] MEDS ORDERED: LOSARTAN POTASSIUM 50 MG TAB PO STA (02:06)
[2019-12-07 02:12] LABS: Magnesium 1.9 mg/dl (1.8-2.4)
[2019-12-07 02:35] LABS: D Dimer 1120 ug/L FEU (0-500)
[2019-12-07] MEDS ORDERED: OPTIRAY 320 125ml IV PRN (02:57)
--- NOTE | 2019-12-07 03:47 | History & Physical Report ---
Date of Service December 07, 2019 Assessment & Plan (1) Chest pain: Multifactorial : COPD exacerbation, no sepsis Possible aspiration given episodic coughing with meals/water intake hx esophageal dysmotility/cricopharyngeal achalasia as per records, hx chronic respiratory failure secondary to COPD/ILD on home O2 Uncontrolled hypertension ? BERNA (CPAP intolerance) contributory ? Hyperthyroid state (low TSH) from last month possibly contributory Fluid retention rule out pulmonary hypertension/right-sided heart failure hx CAD as per records hypothyroidism, recent outpatient TSH from last month noted to be at 0.23 breast cancer status post surgery dementia as per records, patient mentating well anxiety/mood disorder, at baseline hypokalemia secondary diuretic Rx prediabetes as per records, hemoglobin A1c of 6.4, October 2019 past tobacco abuse OBS PCU Prednisone, nebs for COPD exacerbation Antibiotics not felt to be indicated for now Pulmonary consult if without improvement aspiration precautions Swallow eval Titrate home BP meds Recheck TFTs, home levothyroxine dose may need titration TTE RE S OB, fluid retention rule out pulmonary hypertension from possible right-sided CHF Replace potassium Basal insulin, ISS BG goal [id number], carb count coverage DVT prophylaxis per Lovenox subcu Full code Text document was generated using [employer] voice recognition software. It may contain grammatical or spelling errors. Kindly contact undersigned for clarification of any documentation item in question. History of Present Illness Chief Complaint: Chest pain, high blood pressure Primary Care Provider: Cristina Vizcarra MD History obtained from patient and records. Medical history significant for chronic respiratory failure secondary to COPD/ILD on home O2, BERNA (CPAP intolerance), CAD as per records, hypertension, hypothyroidism, breast cancer status post surgery, dementia as per records, hx esophageal dysmotility/cricopharyngeal achalasia as per records, anxiety/mood disorder, dementia as per records, prediabetes as per records, past tobacco abuse. Recent confinement July 2019 for COPD exacerbation. 1 week history of dry cough symptoms, occasional coughing with meals, fair appetite. Shortness of breath more and exertion. No known sick contacts. No fever, no chills. Some leg swelling improved with home diuretic. PCP had recommended outpatient Cardiology consultation. Persistent dry cough symptoms with pleuritic chest pain and shortness of breath noted yesterday. Achy headache symptoms. SBP at home 1 80-200s. Patient compliant with home meds. Denies dietary indiscretion. At the ER, patient received Solu-Medrol for possible COPD exacerbation. Medical History as above Surgical History : Bilateral mastectomy, thyroidectomy Family History : Leukemia, breast cancer, diabetes, stroke Personal/Social history : Past tobacco abuse, no EtOH intake Allergies Allergy/AdvReac Type Severity Reaction Status Date / Time baclofen Allergy Severe Unknown Verified 12/07/19 01:29 cefuroxime Allergy Severe Hives and Unverified 12/07/19 01:29 Dizziness hydralazine Allergy Intermediate joint pain Verified 12/07/19 01:29 tetracycline Allergy Mild RASH Verified 12/07/19 01:29 amlodipine AdvReac Mild Edema. Verified 12/07/19 01:29 Home Medications Home Medications Medication Instructions Recorded Confirmed Type Oxygen Home #1 ea 03/09/19 08/15/19 History aspirin 81 mg tablet,delayed 81 mg PO QAM #30 tab 03/09/19 12/06/19 History release inhalational spacing device #1 ea 03/09/19 08/15/19 History atorvastatin 40 mg tablet 40 mg PO HS 03/12/19 12/06/19 History albuterol sulfate [Ventolin HFA] 2 inha INH Q4H PRN 07/29/19 12/06/19 History azelastine 1 spray INTRANASAL BID PRN 07/29/19 12/07/19 History buspirone 15 mg PO HS 07/29/19 12/07/19 History donepezil [Aricept] 5 mg PO DAILY 07/29/19 12/06/19 History loratadine [Claritin] 10 mg PO QAM 07/29/19 12/06/19 History losartan [Cozaar] 100 mg PO QAM 07/29/19 12/06/19 History pantoprazole [Protonix] 40 mg PO DAILYBB 07/29/19 12/06/19 History trazodone 50 mg PO HS 07/29/19 12/07/19 History CPAP Machine #1 ea 08/06/19 08/15/19 Rx clonidine HCl [Catapres] 0.1 mg PO HS 08/12/19 12/07/19 History diltiazem HCl [Cartia XT] 180 mg PO QAM 08/12/19 12/06/19 History ipratropium 0.5 mg-albuterol 3 mg 3 ml INH Q8H PRN #180 ml 08/15/19 12/06/19 Rx (2.5 mg base)/3 mL nebulization soln tiotropium bromide 2.5 2 puffs INHALATION QAM #1 gm 08/15/19 12/06/19 Rx mcg/actuation mist for inhalation sertraline 100 mg tablet 100 mg PO QAM #30 tab 10/15/19 12/06/19 Rx fluticasone furoate-vilanterol 1 ea INHALATION DAILY PRN 12/06/19 12/07/19 History [Breo Ellipta] levothyroxine 112 mcg PO DAILY 12/06/19 12/06/19 History montelukast 10 mg PO HS 12/06/19 12/06/19 History furosemide [Lasix] 20 mg PO BID 12/07/19 12/07/19 History Past Med/Surg History Medical History Anxiety and depression (Chronic) Axillary lymphadenopathy Chronic respiratory failure with hypoxia (Chronic) CKD (chronic kidney disease), stage III COPD (chronic obstructive pulmonary disease) History of breast cancer HTN (hypertension) (Chronic) Hyperlipidemia Hypothyroidism (Chronic) ILD (interstitial lung disease) (Acute) Mild cognitive impairment BERNA (obstructive sleep apnea) Prediabetes Restless legs syndrome Surgical History S/P mastectomy S/P mastectomy, bilateral (Resolved) Family History Sister Myocardial infarction Sister Stroke Social History Preferred Language: Belarusian Communication Ability: Effective Mailroom Associate Required: No Beliefs That Will Affect Care: None marital status: Current Living Situation: Alone Other Information That Helps Us Care for You: No Feels Safe at Home: Yes Safety Concerns: Feels Safe At This Time Smoking Status: Unknown if ever smoked Hx Alcohol Use: No Hx Substance Use: No Review of Systems Review of Systems: As per HPI, all 10 systems reviewed, all other ROS negative Physical Exam Physical Exam: GENERAL: Slightly uncomfortable, slightly anxious, no respiratory distress, obese SKIN: Normal color, warm HEENT: Bespectacled, pink palpebral conjunctivae, no ptosis, dry buccal mucosa, nasal cannula in place NECK : Supple, short neck, no tenderness CHEST : Decreased breath sounds, expiratory wheezes, no tenderness HEART : RRR, no obvious murmurs ABDOMEN: Some distention, nontender EXTREMITIES : Minimal LE swelling, no LE tenderness, no other conspicuous deformities noted NEUROLOGIC : Coherent, no facial asymmetry, no other gross focality Results & Data Results & Data ([facility]) Vital Signs (Past 12 Hours) Vital Signs Temp Pulse Pulse Resp BP BP Pulse Ox 12/07/19 00:45 81 18 151/101 H 96 12/06/19 23:30 88 18 96 12/06/19 22:57 36.5 C 93 H 18 187/88 H 91 Laboratory Results Laboratory Results WBC 6.96 K/uL (4.8-10.8) 12/06/19 23:10 RBC 4.75 M/uL (4.2-5.4) 12/06/19 23:10 Hgb 13.6 g/dL (12.0-16.0) 12/06/19 23:10 Hct 42.6 % (37-47) 12/06/19 23:10 MCV 89.7 fL (80-100) 12/06/19 23:10 MCH 28.6 pg (25-34) 12/06/19 23:10 MCHC 31.9 g/dL (32-36) L 12/06/19 23:10 RDW Std Deviation 48.0 fL (36.4-46.3) H 12/06/19 23:10 RDW Coeff of Karel 14.6 % (11.5-14.5) H 12/06/19 23:10 Plt Count 287 K/uL (130-400) 12/06/19 23:10 MPV 9.3 fL (7.4-10.4) 12/06/19 23:10 Immature Gran % (Auto) 0.3 % 12/06/19 23:10 Neut % (Auto) 51.5 % 12/06/19 23:10 Lymph % (Auto) 36.9 % 12/06/19 23:10 [place] % (Auto) 9.3 % 12/06/19 23:10 Eos % (Auto) 1.6 % 12/06/19 23:10 Baso % (Auto) 0.4 % 12/06/19 23:10 Immature Gran # (Auto) 0.02 K/uL (0.00-0.02) 12/06/19 23:10 Neut # (Auto) 3.58 K/uL (1.4-6.5) 12/06/19 23:10 Lymph # (Auto) 2.57 K/uL (1.2-3.4) 12/06/19 23:10 [place] # (Auto) 0.65 K/uL (0.11-0.59) H 12/06/19 23:10 Eos # (Auto) 0.11 K/uL (0-0.5) 12/06/19 23:10 Baso # (Auto) 0.03 K/uL (0-0.2) 12/06/19 23:10 PT 10.7 Seconds (9.0-12.0) 12/06/19 23:10 INR 1.0 (0.9-1.1) 12/06/19 23:10 APTT 28.5 Seconds (21.0-31.0) 12/06/19 23:10 PTT Ratio 1.0 12/06/19 23:10 D-Dimer 1120 ug/L FEU (0-500) H* 12/06/19 23:10 Sodium 142 mmol/L (136-145) 12/06/19 23:10 Potassium 3.4 mmol/L (3.5-5.1) L 12/06/19 23:10 Chloride 107 mmol/L (98-107) 12/06/19 23:10 Carbon Dioxide 28 mmol/L (21-32) 12/06/19 23:10 Anion Gap 7.0 (3-11) 12/06/19 23:10 BUN 14 mg/dl (7-18) 12/06/19 23:10 Creatinine 1.03 mg/dl (0.6-1.2) 12/06/19 23:10 Est Cr Clr Drug Dosing 56.3 ml/min 12/06/19 23:10 Est GFR ( Amer) 63.3 12/06/19 23:10 Est GFR (Non-Af Amer) 54.6 12/06/19 23:10 BUN/Creatinine Ratio 13.4 (10-20) 12/06/19 23:10 Glucose 112 mg/dl (70-99) H 12/06/19 23:10 Calcium 9.8 mg/dl (8.5-10.1) 12/06/19 23:10 Magnesium 1.9 mg/dl (1.8-2.4) 12/07/19 01:08 Total Bilirubin 0.4 mg/dl (0.2-1) 12/06/19 23:10 AST 19 U/L (15-37) 12/06/19 23:10 ALT 34 U/L (12-78) 12/06/19 23:10 Alkaline Phosphatase 110 U/L (45-117) 12/06/19 23:10 Troponin I 0.017 ng/ml (0-0.045) 12/07/19 01:08 Total Protein 7.6 gm/dl (6.4-8.2) 12/06/19 23:10 Albumin 3.8 gm/dl (3.4-5.0) 12/06/19 23:10 Globulin 3.8 gm/dl (2.5-4.0) 12/06/19 23:10 Albumin/Globulin Ratio 1.0 (0.9-2) 12/06/19 23:10 Lipase 110 U/L (73-393) 12/06/19 23:[address] head initial read: No acute intracranial process. Exophthalmos. CT chest initial read: No pulmonary embolus, no aortic aneurysm or dissection. Mild mediastinal/hilar adenopathy. Cardiomegaly. COPD/fibrosis. Bibasilar atelectasis/pneumonitis. Calcific foci in the right lung base. EKG as per my interpretation rate 75, NSR, LAD, LAFB, T wave abnormalities inferior leads, LVH
[2019-12-07] MEDS ORDERED: MAGNESIUM SULFATE / D5W 1 GM/100 ML BAG IV STA (04:01)
[2019-12-07 04:34] LABS: Influenza A virus by PCR Neg for Influ A (Neg); Influenza B virus by PCR Neg for Influ B (Neg)
[2019-12-07] MEDS ORDERED: DEXTROSE 50% 50 ML SYRINGE IV PRN (07:05)
[2019-12-07] MEDS ORDERED: GLUCOSE 40% GEL 15 GM TUBE PO PRN (07:05)
[2019-12-07] MEDS ORDERED: PROMETHAZINE HCL 12.5 MG in SODIUM CHLORIDE 0.9% 50 ML IV PRN (07:05)
[2019-12-07] MEDS ORDERED: GLUCAGON FOR INJ 1 MG VIAL SQ PRN (07:05)
[2019-12-07] MEDS ORDERED: CARBOHYDRATES FOR HYPOGLYCEMIA PO PRN (07:05)
[2019-12-07] MEDS ORDERED: GLUCOSE 10 TABS/TUBE PO PRN (07:05)
[2019-12-07] MEDS ORDERED: MoRPHine SULFATE 4 MG/ML 1 ML CARP\\VIAL IV PRN (07:05)
[2019-12-07] MEDS ORDERED: NITROGLYCERIN SL 0.4 MG/TAB TAB SL PRN (07:05)
[2019-12-07] MEDS ORDERED: ACETAMINOPHEN 325 MG TAB PO PRN (07:05)
--- NOTE | 2019-12-07 07:12 | CT Scan Report ---
CT head/brain wo con CT DOSE: 537.48 mGy.cm HISTORY: Mental status change ruiz TECHNIQUE: Multiaxial CT images of the head were performed without the use of intravenous contrast. A dose lowering technique was utilized adhering to the principles of ALARA. Comparison: None. Findings: The paranasal sinuses and mastoid air cells are clear. The calvarium and skull base are int act. The ventricles and sulci are within normal limits. There is no mass, hematoma, midline shift, or acute infarct. Impression: No acute intracranial abnormality. ACT 112: Negative or not required by law. The above report was generated using voice recognition software. It may contain grammatical, syntax or spelling errors. Electronically signed by: Yomi Moreland M.D. 12/07/2019 7:10 AM
[2019-12-07] MEDS ORDERED: MAGNESIUM SULFATE / D5W 1 GM/100 ML BAG IV ONE (07:15)
[2019-12-07] MEDS ORDERED: ALBUMIN 25% 50 ML IV ONE (07:30)
--- NOTE | 2019-12-07 07:35 | XRay Report ---
XR chest 1V portable CLINICAL HISTORY: Chest Pain pain COMPARISON STUDY: No previous studies for comparison. FINDINGS: The bones soft tissues and hemidiaphragms are normal. The cardiomediastinal silhouette is n ormal. The lungs are clear. The pulmonary vasculature is normal. IMPRESSION: Negative chest. ACT 112: Negative or not required by law. The above report was generated using voice recognition software. It may contain grammatical, syntax or spelling errors. Electronically signed by: Yomi Moreland M.D. 12/07/2019 7:33 AM
[2019-12-07] MEDS ORDERED: dilTIAZem HCL 180 MG CAPCR PO SCH (07:45)
[2019-12-07] MEDS ORDERED: guaiFENesin 600 MG TABCR PO SCH (08:00)
[2019-12-07] MEDS ORDERED: INSULIN GLARGINE SOLOSTAR 100 UNITS/ML 3 ML PEN SC ONE (08:00)
--- NOTE | 2019-12-07 08:04 | CT Scan Report ---
CHEST CTA for PULMONARY ARTERIES CT DOSE: 380.45 mGy.cm HISTORY: Upper chest pain. PE TECHNIQUE: Multiaxial CT images of the chest were performed following the intravenous administration of contrast to evaluate the pulmonary arteries. Maximal intensity projection images were also obtaine d. A dose lowering technique was utilized adhering to the principles of ALARA. COMPARISON STUDY: Chest CT 04/03/2019. FINDINGS: Normal caliber thoracic aorta with no evidence for dissection. No pleural or pericardial ef fusions. The heart is mildly enlarged. Borderline mediastinal and bilateral hilar lymphadenopathy rem ains unchanged. Mild respiratory motion artifact results in suboptimal evaluation of the distal pulmo nary arteries. However, no definite filling defects identified within the pulmonary arteries to sugge st pulmonary embolus. Normal caliber esophagus. Limited views of the upper abdomen demonstrate normal liver and spleen. Old, healed left-sided rib fracture and old left-sided scapular fracture. Stable c alcific density within the base of the right lower lobe. There is suture material within the right radha ng apex. Moderate emphysema with a few biapical blebs. Biapical pleural-parenchymal scarring persists . Mild chronic fibrotic change is not simply changed. Bibasilar groundglass densities also favors the fibrotic change. Stable 6 mm nodule within the right upper lobe on image 160. The central airways ar e patent. No pneumothorax. IMPRESSION: 1. No evidence for pulmonary embolus. 2. Chronic fibrotic change is again noted. This likely accounts for the bibasilar densities. 3. Stable 6 mm nodule within the right upper lobe. This demonstrates greater than 2 year stability an d is therefore considered to be benign. 4. Stable borderline mediastinal and bilateral hilar lymphadenopathy. 5. Additional findings as described above. ACT 112: Negative or not required by law. Electronically signed by: Moe Hills M.D. 12/07/2019 8:03 AM
[2019-12-07 08:15] LABS: Basophils # (auto) 0.01 K/uL (0-0.2); Basophils % (auto) 0.1 %; Hematocrit (blood only) 39.3 % (37-47); Hemoglobin 12.9 g/dL (12.0-16.0); Immature Granulocytes # (auto) 0.02 K/uL (0.00-0.02); Immature Granulocytes % (auto) 0.3 %; Lymphocytes # (auto) 0.66 K/uL (1.2-3.4); Lymphocytes % (auto) 9.6 %; Mean Corpuscular Hemoglobin 29.1 pg (25-34); Mean Corpuscular Hgb Conc 32.8 g/dL (32-36); Mean Corpuscular Volume 88.5 fL (80-100); Mean Platelet Volume 9.6 fL (7.4-10.4); Monocytes # (auto) 0.06 K/uL (0.11-0.59); Monocytes % (auto) 0.9 %; Neutrophils % (auto) 89.1 %; Platelet Count 281 K/uL (130-400); RDW Coefficient of Variation 14.3 % (11.5-14.5); RDW Standard Deviation 46.5 fL (36.4-46.3); Red Blood Count 4.44 M/uL (4.2-5.4); White Blood Count 6.85 K/uL (4.8-10.8)
[2019-12-07] MEDS: ALBUT/IPRATROP 3MG/0.5MG NEB 3 ML VIAL NEB SCH ×3 (08:22→16:04)
[2019-12-07 08:24] LABS: Partial Thromboplastin Ratio 1.1; Partial Thromboplastin Time 31.7 Seconds (21.0-31.0)
[2019-12-07 08:38] LABS: BUN Creatinine Ratio 12.7 (10-20); Blood Urea Nitrogen 13 mg/dl (7-18); Calcium 9.9 mg/dl (8.5-10.1); Carbon Dioxide 24 mmol/L (21-32); Chloride 106 mmol/L (98-107); Est GFR (African American) 62.6; Glucose 173 mg/dl (70-99); Potassium 4.7 mmol/L (3.5-5.1); Sodium 137 mmol/L (136-145); Troponin I < 0.015 ng/ml (0-0.045)
[2019-12-07] MEDS: ASPIRIN 81 MG ECTAB PO SCH (08:40)
[2019-12-07] MEDS: predniSONE 20 MG TAB PO SCH (08:40)
[2019-12-07] MEDS: dilTIAZem HCL 180 MG CAPCR PO SCH (08:40)
[2019-12-07] MEDS: LEVOTHYROXINE SODIUM 112 MCG TABLET PO SCH (08:40)
[2019-12-07] MEDS: guaiFENesin 600 MG TABCR PO SCH ×2 (08:40→21:03)
[2019-12-07] MEDS: PANTOprazole 40 MG TAB PO SCH (08:40)
[2019-12-07] MEDS: LORATADINE 10 MG TAB PO SCH (08:41)
[2019-12-07] MEDS: ENOXAPARIN INJ 30 MG/0.3 ML SYR SQ SCH (08:41)
[2019-12-07] MEDS: SERTRALINE HCL 100 MG TABLET PO SCH (08:41)
[2019-12-07] MEDS: INSULIN ASPART 100 UNITS/ML 3 ML PEN SC SCH ×4 (08:44→22:16)
[2019-12-07] MEDS: LOSARTAN POTASSIUM 50 MG TAB PO SCH (08:57)
[2019-12-07] MEDS ORDERED: LORATADINE 10 MG TAB PO SCH (09:00)
[2019-12-07] MEDS ORDERED: SERTRALINE HCL 100 MG TABLET PO SCH (09:00)
[2019-12-07] MEDS ORDERED: predniSONE 20 MG TAB PO SCH (09:00)
[2019-12-07] MEDS ORDERED: PERFLUTREN LIPID MICROSPHERE (DEFINITY) IV ONE (10:00)
[2019-12-07 10:04] LABS: Thyroid Stimulating Hormone 0.071 uIu/ml (0.300-4.500)
[2019-12-07 10:17] LABS: T4 Free Thyroxine 1.32 ng/dl (0.8-1.6)
[2019-12-07] MEDS: AZELASTINE: ORDER AWAITING ACTION SCH ×2 (11:42→16:08)
[2019-12-07] MEDS ORDERED: DONEPEZIL HCL 5 MG TAB PO SCH (16:00)
--- NOTE | 2019-12-07 16:11 | Hospitalist Progress Note ---
Date of Service December 07, 2019 Assessment & Plan (1) Hypertensive urgency: Will place the patient back on HCTZ and increase clonidine to twice daily, continuing losartan and stopping lasix. The patient has no h/o heart failure and denies h/o CAD. Echo appears normal and she has no evidence of fluid overload on exam. Lasix is not needed at this time, and feel BP would be better controlled with HCTZ. She denies any significant drowsiness on the clonidine and notes significant rebound HTN if she comes off of it. With added issues of chest pain and CUMMINGS, will ask cardiology to evaluate her. Appreciate recommendations. Low salt diet, daily weights. (2) CUMMINGS (dyspnea on exertion): Uncertain cause but may be multifactorial including but not limited to cardiac etiology vs acute worsening of known underlying COPD with emphysema and IPF. Cont prednisone and inhaler therapy. Consider evaluation for vocal cord dysfunction. Will review records for PFTs. (3) Substernal chest pain: Fleeting but increasing episodes this week. No ACS present. May be related to uncontrolled hypertension, and she also has chest wall tenderness and a h/o XRT to chest. Appreciate Cardiology evaluation as above. (4) Prediabetes: repeat A1C now. Was 6.4 in October 2019. Will back down on basal bolus insulin to avoid hypoglycemia. She is diet controlled at home. Insulin for correction factor only at this time. (5) COPD with emphysema: Possible exacerbation. No wheezing today on exam. Cont short course of steroids and bronchodilators as needed. Consider consulting pulmonology if she worsens. (6) BERNA (obstructive sleep apnea): Noncompliant with CPAP, which is likely contributing to elevated blood pressure. Continued to drive home the importance of compliance with this. She verbalized understanding. (7) Hypothyroidism: Multiple recent changes in her Synthroid dosing. Currently hyperthyroid on TFTs this admission. Reports insomnia, and this may be contributing here as well as to uncontrolled hypertension. Follow-up with PCP as outpatient for further titration as needed. (8) History of breast cancer: Diabnosed in 2012. s/p bilateral mastectomy, chemotherapy and XRT. Was intolerant of hormone therapy. Is currently in remission. Follows with Dr. Lukasz Barnett-[facility]. (9) ILD (interstitial lung disease): IPF seen on biopsy. Cont home inhaler therapy. [place] [facility] [facility] (10) Anxiety: Cont sertraline per home regimen. (11) DVT prophylaxis: Lovenox Full Code Dispo-cont telemetry monitoring Norah Kurtz DO [facility] Hospitalist Admission and Anticipated Discharge Date Admission Date: December 07, 2019 Subjective Mrs. Licona reports feeling some intermittent chest pain today. The pain was fleeting and she didn't mention it to nursing. Reports increased frequency of chest pain over the past week that is intermittent, provoked by exertin, relieved by rest. Occasionally has associated nausea. CP doesn't radiate and is substernal. There is pain to palpation of the chest in this area. Patient is s/p bilateral mastectomy, chemo and XRT to chest (Dx'd in 2012, currently in remission). She reports weight gain and swelling in her legs in recent weeks. She reports worsened dyspnea on exertion. She states that her BP has been running high, prompting her initial evaluation in the ER yesterday. She reports home reading was >200. BP was 187/88 on arrival. She reports her HCTZ was changed to Lasix 20 BID in Aug or september of this year. She also is noncompliant with CPAP and reports daytime fatigue and headaches upon awakening. She has a normal echo today , normal serial cardiac enzymes overnight, and a nonischemic EKG. Telemetry monitoring was unremarkable. She reports trying to stick to a low salt diet. Review of Systems Review of Systems: All systems reviewed & are unremarkable except as noted in Subjective (Pt reports feelings of throat closing at times, marilee if she coughs which makes her feel like she cannot catch her breath and then it resolves. This has been happening more often lately. ) Physical Exam Physical Exam: CONSTITUTIONAL: obese, vitals as above, generally well- appearing EYES: pupils are equal and round bilaterally, normal conjunctivae, no scleral icterus ENT: external ear and nose normal, oropharynx clear, MMM RESPIRATORY: clear to auscultation bilaterally aside from fine crackles at the bases, no rales or wheezes, normal respiratory effort CARDIOVASCULAR: regular rate and rhythm, S1 and 2 heard without murmurs, gallops or rubs, no JVD, no peripheral edema CHEST: chest wall tenderness to palpation present in parasternal areas and under L breast area. GASTROINTESTINAL: soft, nontender, nondistended and no guarding. MUSCULOSKELETAL: strength 5/5 throughout, head is normocephalic and atraumatic SKIN: warm and dry, erythematous area to chest wall which appears chronic. NEUROLOGIC: CN 2-12 grossly intact, normal cognition, normal speech, no gross focal deficits. PSYCHIATRIC: alert cooperative and oriented to person, place and time. Results & Data Results & Data ([facility]) Vital Signs (Past 12 Hours) Vital Signs Temp Pulse Resp BP Pulse Ox 12/07/19 16:04 103 H 18 90 12/07/19 15:33 36.5 C 102 H 23 183/87 H 92 12/07/19 11:26 92 H 18 90 12/07/19 11:19 36.7 C 87 20 133/64 95 12/07/19 08:37 101 H 158/93 H 12/07/19 08:23 90 16 96 12/07/19 06:57 36.5 C 96 H 18 184/89 H 91 12/07/19 06:39 18 92 12/07/19 06:00 70 18 119/64 92 Laboratory Results Short CBC 12/06/19 12/06/19 12/06/19 Range/Units 23:10 23:10 23:10 WBC 6.96 (4.8-10.8) K/uL RBC 4.75 (4.2-5.4) M/uL Hgb 13.6 (12.0-16.0) g/dL Hct 42.6 (37-47) % MCV 89.7 (80-100) fL MCH 28.6 (25-34) pg MCHC 31.9 L (32-36) g/dL RDW Std Deviation 48.0 H (36.4-46.3) fL RDW Coeff of Karel 14.6 H (11.5-14.5) % Plt Count 287 (130-400) K/uL MPV 9.3 (7.4-10.4) fL Immature Gran % (Auto) 0.3 % Neut % (Auto) 51.5 % Lymph % (Auto) 36.9 % [place] % (Auto) 9.3 % Eos % (Auto) 1.6 % Baso % (Auto) 0.4 % Immature Gran # (Auto) 0.02 (0.00-0.02) K/uL Neut # (Auto) 3.58 (1.4-6.5) K/uL Lymph # (Auto) 2.57 (1.2-3.4) K/uL [place] # (Auto) 0.65 H (0.11-0.59) K/uL Eos # (Auto) 0.11 (0-0.5) K/uL Baso # (Auto) 0.03 (0-0.2) K/uL PT 10.7 (9.0-12.0) Seconds INR 1.0 (0.9-1.1) APTT 28.5 (21.0-31.0) Seconds PTT Ratio 1.0 D-Dimer (0-500) ug/L FEU Sodium 142 (136-145) mmol/L Potassium 3.4 L (3.5-5.1) mmol/L Chloride 107 (98-107) mmol/L Carbon Dioxide 28 (21-32) mmol/L Anion Gap 7.0 (3-11) BUN 14 (7-18) mg/dl Creatinine 1.03 (0.6-1.2) mg/dl Est Cr Clr Drug Dosing 56.3 ml/min Est GFR ( Amer) 63.3 Est GFR (Non-Af Amer) 54.6 BUN/Creatinine Ratio 13.4 (10-20) Glucose 112 H (70-99) mg/dl POC Glucose (70-99) mg/dl Calcium 9.8 (8.5-10.1) mg/dl Magnesium (1.8-2.4) mg/dl Total Bilirubin 0.4 (0.2-1) mg/dl AST 19 (15-37) U/L ALT 34 (12-78) U/L Alkaline Phosphatase 110 (45-117) U/L Troponin I < 0.015 (0-0.045) ng/ml NT-Pro-B Natriuret Pep (0-900) pg/ml Total Protein 7.6 (6.4-8.2) gm/dl Albumin 3.8 (3.4-5.0) gm/dl Globulin 3.8 (2.5-4.0) gm/dl Albumin/Globulin Ratio 1.0 (0.9-2) Lipase 110 (73-393) U/L TSH (0.300-4.500) uIu/ml Free T4 (0.8-1.6) ng/dl COVID-19 PCR (Negative) Influenza Type A (PCR) (Neg) Influenza Type B (PCR) (Neg) 12/06/19 12/07/19 12/07/19 Range/Units 23:10 01:08 03:50 WBC (4.8-10.8) K/uL RBC (4.2-5.4) M/uL Hgb (12.0-16.0) g/dL Hct (37-47) % MCV (80-100) fL MCH (25-34) pg MCHC (32-36) g/dL RDW Std Deviation (36.4-46.3) fL RDW Coeff of Karel (11.5-14.5) % Plt Count (130-400) K/uL MPV (7.4-10.4) fL Immature Gran % (Auto) % Neut % (Auto) % Lymph % (Auto) % [place] % (Auto) % Eos % (Auto) % Baso % (Auto) % Immature Gran # (Auto) (0.00-0.02) K/uL Neut # (Auto) (1.4-6.5) K/uL Lymph # (Auto) (1.2-3.4) K/uL [place] # (Auto) (0.11-0.59) K/uL Eos # (Auto) (0-0.5) K/uL Baso # (Auto) (0-0.2) K/uL PT (9.0-12.0) Seconds INR (0.9-1.1) APTT (21.0-31.0) Seconds PTT Ratio D-Dimer 1120 H* (0-500) ug/L FEU Sodium (136-145) mmol/L Potassium (3.5-5.1) mmol/L Chloride (98-107) mmol/L Carbon Dioxide (21-32) mmol/L Anion Gap (3-11) BUN (7-18) mg/dl Creatinine (0.6-1.2) mg/dl Est Cr Clr Drug Dosing ml/min Est GFR ( Amer) Est GFR (Non-Af Amer) BUN/Creatinine Ratio (10-20) Glucose (70-99) mg/dl POC Glucose (70-99) mg/dl Calcium (8.5-10.1) mg/dl Magnesium 1.9 (1.8-2.4) mg/dl Total Bilirubin (0.2-1) mg/dl AST (15-37) U/L ALT (12-78) U/L Alkaline Phosphatase (45-117) U/L Troponin I 0.017 (0-0.045) ng/ml NT-Pro-B Natriuret Pep 118 (0-900) pg/ml Total Protein (6.4-8.2) gm/dl Albumin (3.4-5.0) gm/dl Globulin (2.5-4.0) gm/dl Albumin/Globulin Ratio (0.9-2) Lipase (73-393) U/L TSH (0.300-4.500) uIu/ml Free T4 (0.8-1.6) ng/dl COVID-19 PCR (Negative) Influenza Type A (PCR) Neg for Influ A (Neg) Influenza Type B (PCR) Neg for Influ B (Neg) 12/07/19 12/07/19 12/07/19 Range/Units 03:50 07:48 07:50 WBC (4.8-10.8) K/uL RBC (4.2-5.4) M/uL Hgb (12.0-16.0) g/dL Hct (37-47) % MCV (80-100) fL MCH (25-34) pg MCHC (32-36) g/dL RDW Std Deviation (36.4-46.3) fL RDW Coeff of Karel (11.5-14.5) % Plt Count (130-400) K/uL MPV (7.4-10.4) fL Immature Gran % (Auto) % Neut % (Auto) % Lymph % (Auto) % [place] % (Auto) % Eos % (Auto) % Baso % (Auto) % Immature Gran # (Auto) (0.00-0.02) K/uL Neut # (Auto) (1.4-6.5) K/uL Lymph # (Auto) (1.2-3.4) K/uL [place] # (Auto) (0.11-0.59) K/uL Eos # (Auto) (0-0.5) K/uL Baso # (Auto) (0-0.2) K/uL PT (9.0-12.0) Seconds INR (0.9-1.1) APTT (21.0-31.0) Seconds PTT Ratio D-Dimer (0-500) ug/L FEU Sodium 137 (136-145) mmol/L Potassium 4.7 D (3.5-5.1) mmol/L Chloride 106 (98-107) mmol/L Carbon Dioxide 24 (21-32) mmol/L Anion Gap 7.0 (3-11) BUN 13 (7-18) mg/dl Creatinine 1.04 (0.6-1.2) mg/dl Est Cr Clr Drug Dosing 55.0 ml/min Est GFR ( Amer) 62.6 Est GFR (Non-Af Amer) 54.0 BUN/Creatinine Ratio 12.7 (10-20) Glucose 173 H (70-99) mg/dl POC Glucose 180 H (70-99) mg/dl Calcium 9.9 (8.5-10.1) mg/dl Magnesium (1.8-2.4) mg/dl Total Bilirubin (0.2-1) mg/dl AST (15-37) U/L ALT (12-78) U/L Alkaline Phosphatase (45-117) U/L Troponin I < 0.015 (0-0.045) ng/ml NT-Pro-B Natriuret Pep (0-900) pg/ml Total Protein (6.4-8.2) gm/dl Albumin (3.4-5.0) gm/dl Globulin (2.5-4.0) gm/dl Albumin/Globulin Ratio (0.9-2) Lipase (73-393) U/L TSH (0.300-4.500) uIu/ml Free T4 (0.8-1.6) ng/dl COVID-19 PCR NEGATIVE (Negative) Influenza Type A (PCR) (Neg) Influenza Type B (PCR) (Neg) 12/07/19 12/07/19 12/07/19 Range/Units 07:50 07:50 07:50 WBC 6.85 (4.8-10.8) K/uL RBC 4.44 (4.2-5.4) M/uL Hgb 12.9 (12.0-16.0) g/dL Hct 39.3 (37-47) % MCV 88.5 (80-100) fL MCH 29.1 (25-34) pg MCHC 32.8 (32-36) g/dL RDW Std Deviation 46.5 H (36.4-46.3) fL RDW Coeff of Karel 14.3 (11.5-14.5) % Plt Count 281 (130-400) K/uL MPV 9.6 (7.4-10.4) fL Immature Gran % (Auto) 0.3 % Neut % (Auto) 89.1 % Lymph % (Auto) 9.6 % [place] % (Auto) 0.9 % Eos % (Auto) 0.0 % Baso % (Auto) 0.1 % Immature Gran # (Auto) 0.02 (0.00-0.02) K/uL Neut # (Auto) 6.10 (1.4-6.5) K/uL Lymph # (Auto) 0.66 L (1.2-3.4) K/uL [place] # (Auto) 0.06 L (0.11-0.59) K/uL Eos # (Auto) 0.00 (0-0.5) K/uL Baso # (Auto) 0.01 (0-0.2) K/uL PT (9.0-12.0) Seconds INR (0.9-1.1) APTT 31.7 H (21.0-31.0) Seconds PTT Ratio 1.1 D-Dimer (0-500) ug/L FEU Sodium (136-145) mmol/L Potassium (3.5-5.1) mmol/L Chloride (98-107) mmol/L Carbon Dioxide (21-32) mmol/L Anion Gap (3-11) BUN (7-18) mg/dl Creatinine (0.6-1.2) mg/dl Est Cr Clr Drug Dosing ml/min Est GFR ( Amer) Est GFR (Non-Af Amer) BUN/Creatinine Ratio (10-20) Glucose (70-99) mg/dl POC Glucose (70-99) mg/dl Calcium (8.5-10.1) mg/dl Magnesium (1.8-2.4) mg/dl Total Bilirubin (0.2-1) mg/dl AST (15-37) U/L ALT (12-78) U/L Alkaline Phosphatase (45-117) U/L Troponin I (0-0.045) ng/ml NT-Pro-B Natriuret Pep (0-900) pg/ml Total Protein (6.4-8.2) gm/dl Albumin (3.4-5.0) gm/dl Globulin (2.5-4.0) gm/dl Albumin/Globulin Ratio (0.9-2) Lipase (73-393) U/L TSH 0.071 L (0.300-4.500) uIu/ml Free T4 1.32 (0.8-1.6) ng/dl COVID-19 PCR (Negative) Influenza Type A (PCR) (Neg) Influenza Type B (PCR) (Neg) 12/07/19 12/07/19 Range/Units 11:43 16:30 WBC (4.8-10.8) K/uL RBC (4.2-5.4) M/uL Hgb (12.0-16.0) g/dL Hct (37-47) % MCV (80-100) fL MCH (25-34) pg MCHC (32-36) g/dL RDW Std Deviation (36.4-46.3) fL RDW Coeff of Karel (11.5-14.5) % Plt Count (130-400) K/uL MPV (7.4-10.4) fL Immature Gran % (Auto) % Neut % (Auto) % Lymph % (Auto) % [place] % (Auto) % Eos % (Auto) % Baso % (Auto) % Immature Gran # (Auto) (0.00-0.02) K/uL Neut # (Auto) (1.4-6.5) K/uL Lymph # (Auto) (1.2-3.4) K/uL [place] # (Auto) (0.11-0.59) K/uL Eos # (Auto) (0-0.5) K/uL Baso # (Auto) (0-0.2) K/uL PT (9.0-12.0) Seconds INR (0.9-1.1) APTT (21.0-31.0) Seconds PTT Ratio D-Dimer (0-500) ug/L FEU Sodium (136-145) mmol/L Potassium (3.5-5.1) mmol/L Chloride (98-107) mmol/L Carbon Dioxide (21-32) mmol/L Anion Gap (3-11) BUN (7-18) mg/dl Creatinine (0.6-1.2) mg/dl Est Cr Clr Drug Dosing ml/min Est GFR ( Amer) Est GFR (Non-Af Amer) BUN/Creatinine Ratio (10-20) Glucose (70-99) mg/dl POC Glucose 174 H 137 H (70-99) mg/dl Calcium (8.5-10.1) mg/dl Magnesium (1.8-2.4) mg/dl Total Bilirubin (0.2-1) mg/dl AST (15-37) U/L ALT (12-78) U/L Alkaline Phosphatase (45-117) U/L Troponin I (0-0.045) ng/ml NT-Pro-B Natriuret Pep (0-900) pg/ml Total Protein (6.4-8.2) gm/dl Albumin (3.4-5.0) gm/dl Globulin (2.5-4.0) gm/dl Albumin/Globulin Ratio (0.9-2) Lipase (73-393) U/L TSH (0.300-4.500) uIu/ml Free T4 (0.8-1.6) ng/dl COVID-19 PCR (Negative) Influenza Type A (PCR) (Neg) Influenza Type B (PCR) (Neg) BMP 12/06/19 12/07/19 23:10 07:50 Sodium 142 137 Potassium 3.4 L 4.7 D Chloride 107 106 Carbon Dioxide 28 24 BUN 14 13 Creatinine 1.03 1.04 Glucose 112 H 173 H Calcium 9.8 9.9 Cardiac Enzymes 12/06/19 12/07/19 12/07/19 Range/Units 23:10 01:08 07:50 Troponin I < 0.015 0.017 < 0.015 (0-0.045) ng/ml Liver Function 12/06/19 Range/Units 23:10 Total Bilirubin 0.4 (0.2-1) mg/dl AST 19 (15-37) U/L ALT 34 (12-78) U/L Alkaline Phosphatase 110 (45-117) U/L Albumin 3.8 (3.4-5.0) gm/dl Medications Administered Current Inpatient Medications Acetaminophen (Tylenol) 650 mg PO Q4H PRN PRN Reason: Pain or Fever Stop: 01/06/20 07:04 Last Admin: 12/07/19 16:07 Dose: 650 mg Documented by: Albuterol (Duoneb) 3 ml NEB QIDR [facility] Stop: 01/06/20 07:04 Last Admin: 12/07/19 16:04 Dose: 3 ml Documented by: Aspirin (Ecotrin Ectab) 81 mg PO DAILY@0800 [facility] Stop: 01/06/20 07:59 Last Admin: 12/07/19 08:40 Dose: 81 mg Documented by: Atorvastatin Calcium (Lipitor) 40 mg PO DAILY@1999 [facility] Stop: 01/06/20 19:59 Buspirone HCl (Buspar) 15 mg PO DAILY@1999 [facility] Stop: 01/06/20 19:59 Clonidine HCl (Catapres) 0.1 mg PO DAILY@1999 [facility] Stop: 01/06/20 19:59 Dextrose (Dextrose 50%) 25 - 50 ml IV UD PRN; Protocol PRN Reason: Hypoglycemia Protocol Stop: 01/06/20 07:04 Diltiazem HCl (Cardizem Cd) 180 mg PO DAILY@0800 [facility] Stop: 01/06/20 07:44 Last Admin: 12/07/19 08:40 Dose: 180 mg Documented by: Donepezil HCl (Aricept) 5 mg PO DAILY@1600 [facility] Stop: 01/06/20 15:59 Last Admin: 12/07/19 16:08 Dose: 5 mg Documented by: Enoxaparin Sodium (Lovenox) 30 mg SQ DAILY@0800 [facility] Stop: 01/06/20 07:59 Last Admin: 12/07/19 08:41 Dose: 30 mg Documented by: Glucagon (Glucagen) 1 mg SQ UD PRN; Protocol PRN Reason: Hypoglycemia Protocol Stop: 01/06/20 07:04 Glucose (Dex4 Glucose) 4 - 8 tabs PO UD PRN; Protocol PRN Reason: Hypoglycemia Protocol Stop: 01/06/20 07:04 Glucose (Glucose 40%) 15 - 30 gm PO UD PRN; Protocol PRN Reason: Hypoglycemia Protocol Stop: 01/06/20 07:04 Guaifenesin (Mucinex) 600 mg PO Q12H [facility] Stop: 01/06/20 07:59 Last Admin: 12/07/19 08:40 Dose: 600 mg Documented by: Promethazine HCl 12.5 mg/ (Sodium Chloride) 50.5 mls @ 202 mls/hr IV Q6H PRN PRN Reason: Nausea And Vomiting Stop: 01/06/20 07:04 Insulin Aspart (Novolog Flexpen) [address] [facility] Stop: 01/06/20 07:29 Last Admin: 12/07/19 16:58 Dose: 3 units Documented by: Insulin Glargine (Lantus Solostar Pen) 5 units SC DAILY@0800 [facility] Stop: 01/07/20 07:59 [facility]: 01/06/20 07:44 Last Admin: 12/07/19 08:40 Dose: 112 mcg Documented by: Loratadine (Claritin) 10 mg PO DAILY@0800 [facility] Stop: 01/06/20 07:59 Last Admin: 12/07/19 08:41 Dose: 10 mg Documented by: Losartan Potassium (Cozaar) 100 mg PO DAILY@0800 [facility] Stop: 01/06/20 07:59 Last Admin: 12/07/19 08:57 Dose: 100 mg Documented by: Miscellaneous (Order Awaiting Action) 1 ea N/A QS [facility] Stop: 01/06/20 07:59 Last Admin: 12/07/19 16:08 Dose: Not Given Documented by: Miscellaneous (Carbohydrates For Hypoglycemia) 15 - 30 gm PO UD PRN PRN Reason: Hypoglycemia Protocol Stop: 01/06/20 07:04 Montelukast Sodium (Singulair) 10 mg PO DAILY@1999 [facility] Stop: 01/06/20 19:59 Morphine Sulfate (Morphine Sulfate) 4 mg IV Q4H PRN PRN Reason: Pain Stop: 12/21/19 07:04 Nitroglycerin (Nitrostat) 0.4 mg SL UD PRN PRN Reason: Chest Pain Stop: 01/06/20 07:04 Pantoprazole Sodium (Protonix) 40 mg PO DAILYBB [facility] Stop: 01/06/20 07:44 Last Admin: 12/07/19 08:40 Dose: 40 mg Documented by: Prednisone (Prednisone) 20 mg PO DAILY@0800 [facility] Stop: 01/06/20 07:59 Last Admin: 12/07/19 08:40 Dose: 20 mg Documented by: Sertraline HCl (Zoloft) 100 mg PO DAILY@0800 [facility] Stop: 01/06/20 07:59 Last Admin: 12/07/19 08:41 Dose: 100 mg Documented by: Trazodone HCl (Desyrel) 50 mg PO DAILY@1999 [facility] Stop: 01/06/20 19:59
[2019-12-07] MEDS ORDERED: ALBUT/IPRATROP 3MG/0.5MG NEB 3 ML VIAL NEB PRN (17:25)
[2019-12-07] MEDS ORDERED: hydroCHLOROthiazide 25 MG TAB PO STA (17:37)
[2019-12-07] MEDS ORDERED: MONTELUKAST SODIUM 10 MG TABLET PO SCH ×2 (20:00→21:00)
[2019-12-07] MEDS ORDERED: BusPIRone 15 MG TAB PO SCH ×2 (20:00→21:00)
[2019-12-07] MEDS ORDERED: cloNIDine HCL 0.1 MG TAB PO SCH ×2 (20:00→21:00)
[2019-12-07] MEDS ORDERED: ATORVASTATIN 40 MG TAB PO SCH ×2 (20:00→21:00)
[2019-12-07] MEDS ORDERED: TRAZODONE HCL 50 MG TAB PO SCH ×2 (20:00→21:00)
[2019-12-07] MEDS: cloNIDine HCL 0.1 MG TAB PO SCH (21:03)
[2019-12-08] MEDS: AZELASTINE: ORDER AWAITING ACTION SCH ×2 (00:13→08:33)
[2019-12-08] MEDS: PANTOprazole 40 MG TAB PO SCH (05:48)
[2019-12-08] MEDS: LEVOTHYROXINE SODIUM 112 MCG TABLET PO SCH (05:48)
--- NOTE | 2019-12-08 06:53 | Electrocardiogram Report ---
Test Reason : Blood Pressure : / mmHG Vent. Rate : 073 BPM Atrial Rate : 073 BPM P-R Int : 170 ms QRS Dur : 086 ms QT Int : 384 ms P-R-T Axes : 039 -23 025 degrees QTc Int : 423 ms Poor data quality, interpretation may be adversely affected Normal sinus rhythm with PVC Moderate voltage criteria for LVH, may be normal variant Borderline ECG When compared with ECG of 29-JUL-2019 10:15, No significant change was found Confirmed by Eric Meadows ([id number]) on 12/08/2019 6:52:37 AM Referred By: REFERRED SELF Confirmed By:Eric Meadows
[2019-12-08 07:23] LABS: BUN Creatinine Ratio 18.9 (10-20); Calcium 9.6 mg/dl (8.5-10.1); Est GFR (African American) 67.3; Potassium 4.4 mmol/L (3.5-5.1)
[2019-12-08] MEDS: INSULIN ASPART 100 UNITS/ML 3 ML PEN SC SCH ×2 (07:39→12:14)
[2019-12-08] MEDS ORDERED: INSULIN GLARGINE SOLOSTAR 100 UNITS/ML 3 ML PEN SC SCH (08:00)
[2019-12-08 08:05] LABS: Estimated Average Glucose 134 mg/dl; Hemoglobin A1C 6.3 % (4.5-5.6)
[2019-12-08] MEDS: dilTIAZem HCL 180 MG CAPCR PO SCH (08:32)
[2019-12-08] MEDS: cloNIDine HCL 0.1 MG TAB PO SCH (08:32)
[2019-12-08] MEDS: guaiFENesin 600 MG TABCR PO SCH (08:32)
[2019-12-08] MEDS: LOSARTAN POTASSIUM 50 MG TAB PO SCH (08:32)
[2019-12-08] MEDS: LORATADINE 10 MG TAB PO SCH (08:32)
[2019-12-08] MEDS: ASPIRIN 81 MG ECTAB PO SCH (08:32)
[2019-12-08] MEDS: SERTRALINE HCL 100 MG TABLET PO SCH (08:33)
[2019-12-08] MEDS: predniSONE 20 MG TAB PO SCH (08:33)
[2019-12-08] MEDS: ENOXAPARIN INJ 30 MG/0.3 ML SYR SQ SCH (08:34)
[2019-12-08] MEDS ORDERED: hydroCHLOROthiazide 25 MG TAB PO SCH (09:00)
[2019-12-08] MEDS ORDERED: LOSARTAN POTASSIUM 50 MG TAB PO SCH (09:00)
--- NOTE | 2019-12-08 10:53 | Discharge Summary ---
Date of Service December 08, 2019 Admission HPI Per Admitting Provider History obtained from patient and records. Medical history significant for chronic respiratory failure secondary to COPD/ILD on home O2, BERNA (CPAP intolerance), CAD as per records, hypertension, hypothyroidism, breast cancer status post surgery, dementia as per records, hx esophageal dysmotility/cricopharyngeal achalasia as per records, anxiety/mood disorder, dementia as per records, prediabetes as per records, past tobacco abuse. Recent confinement July 2019 for COPD exacerbation. 1 week history of dry cough symptoms, occasional coughing with meals, fair appetite. Shortness of breath more and exertion. No known sick contacts. No fever, no chills. Some leg swelling improved with home diuretic. PCP had recommended outpatient Cardiology consultation. Persistent dry cough symptoms with pleuritic chest pain and shortness of breath noted yesterday. Achy headache symptoms. SBP at home 1 80-200s. Patient compliant with home meds. Denies dietary indiscretion. At the ER, patient received Solu-Medrol for possible COPD exacerbation. Medical History as above Surgical History : Bilateral mastectomy, thyroidectomy Family History : Leukemia, breast cancer, diabetes, stroke Personal/Social history : Past tobacco abuse, no EtOH intake Admission Exam Per Admitting Provider GENERAL: Slightly uncomfortable, slightly anxious, no respiratory distress, obese SKIN: Normal color, warm HEENT: Bespectacled, pink palpebral conjunctivae, no ptosis, dry buccal mucosa, nasal cannula in place NECK : Supple, short neck, no tenderness CHEST : Decreased breath sounds, expiratory wheezes, no tenderness HEART : RRR, no obvious murmurs ABDOMEN: Some distention, nontender EXTREMITIES : Minimal LE swelling, no LE tenderness, no other conspicuous deformities noted NEUROLOGIC : Coherent, no facial asymmetry, no other gross focality Principal Diagnosis Hypertensive Urgency COPD Exacerbation Chest pain BERNA noncompliant with CPAP therapy Prediabetes Discharge Exam CONSTITUTIONAL: obese, vitals as above, generally well-appearing EYES: pupils are equal and round bilaterally, normal conjunctivae, no scleral icterus ENT: external ear and nose normal, oropharynx clear, MMM RESPIRATORY: Wheezing increased at the bases. normal respiratory effort. Notably patient is forcing her exhalation effort during auscultation, augmenting the expiratory wheezing. CARDIOVASCULAR: regular rate and rhythm, S1 and 2 heard without murmurs, gallops or rubs, no JVD, no peripheral edema CHEST: chest wall tenderness to palpation present in parasternal areas and under L breast area. GASTROINTESTINAL: soft, nontender, nondistended and no guarding. MUSCULOSKELETAL: strength 5/5 throughout, head is normocephalic and atraumatic SKIN: warm and dry, erythematous area to chest wall which appears chronic. NEUROLOGIC: CN 2-12 grossly intact, normal cognition, normal speech, no gross focal deficits. PSYCHIATRIC: alert cooperative and oriented to person, place and time. Discharge Data Allergies Allergy/AdvReac Type Severity Reaction Status Date / Time baclofen Allergy Severe Unknown Verified 12/07/19 01:29 cefuroxime Allergy Severe Hives and Unverified 12/07/19 01:29 Dizziness hydralazine Allergy Intermediate joint pain Verified 12/07/19 01:29 tetracycline Allergy Mild RASH Verified 12/07/19 01:29 amlodipine AdvReac Mild Edema. Verified 12/07/19 01:29 Consultations 12/07/19 01:58 ED Decision to Admit Stat 12/07/19 17:43 Consult Cardiology Routine Ordered Studies 12/07/19 02:37 CT angio chest PE protocol Urgent CT head/brain wo con Urgent Hospital Course (1) COPD exacerbation: (2) Hypertensive urgency: (3) CUMMINGS (dyspnea on exertion): (4) Substernal chest pain: (5) ILD (interstitial lung disease): (6) BERNA (obstructive sleep apnea): 69-year-old female with history of COPD on chronic oxygen, BERNA with known noncompliance with CPAP, and history of hypertension presents with intermittent chest pain, increased dyspnea on exertion, and an elevated blood pressure reading. She was admitted to telemetry on the hospitalist service. EKG was nonischemic and serial troponins were negative overnight. Her blood pressure improved the following morning without intervention, however truman that afternoon back into the 180 systolic. HCTZ was re-added to her regimen and clonidine was increased to 0.1 mg twice daily to reflect her recent regimen in August 2019. BP improved into the 130s systolic overnight. Cardiology was consulted in the setting of chest pain and recommended an outpatient stress test. An echocardiogram was performed during this admission revealing a normal ejection fraction, trace mitral regurgitation and grade 1 diastolic dysfunction. She did have a couple of fleeting episodes of substernal chest pain while on telemetry with no events noted. She did have parasternal tenderness to palpation. Cardiology recommended for her to go back on her furosemide 20 mg p.o. twice daily with the addition of Spironolactone 12.5 mg daily, continuing her other blood pressure medications including losartan 100 mg daily and diltiazem daily. He did agree with the increase of the clonidine to twice daily, which we continued at time of discharge. Close primary care follow-up was recommended to ensure blood pressure control and titration of medications as needed, monitoring electrolytes and kidney function as needed with recent changes, and to organize and set up an outpatient stress test to complete the work-up for her recent issues with chest pain and dyspnea on exertion. Notably, compliance with CPAP therapy was underscored. Additionally, she was treated for COPD exacerbation with some increased wheezing at time of discharge. She also reported coughing up some sputum that was greenish in color. She was continued on a short course of steroids with the addition of Z-Angel. Primary care follow-up was also recommended to ensure this is improved. Total Time Total Time Spent Total Time Spent (In Minutes): 60 Total Time Includes: Examination of the Patient, Discharge Planning, Medication Reconciliation and Communication With Other Providers Discharge Plan Discharge Items Patient Disposition: Home - Self-Care Reason For Visit: HTN URGENCY Discharge Diagnosis: Hypertensive Urgency COPD Exacerbation Chest pain BERNA noncompliant with CPAP therapy Prediabetes Activity: Resume your previous activity Non-emergency contact: Primary Care Provider Call non-emergency contact if: you have any medication questions, your symptoms worsen, your pain is not controlled, your pain is worsening, your pain is unusual for you, your pain is concerning for you and you have a fever Follow-up/Referrals: Cristina Vizcarra MD [Primary Care Provider] - Diet: Carb Consistent or DM2 and Low Sodium (2gm) Addtl Attending Provider Instructions: Please take all medications as instructed on discharge list below. Changes have been made to your blood pressure regimen. It is recommended that you follow-up with your primary care physician within one week to have a repeat blood pressure check with titration of medication as needed. It is recommended that you undergo an outpatient stress test to complete the workup of your intermittent chest pain. Please work with your PCP to schedule this in the cardiology office. Please continue watching what you eat and exercising daily to ensure no progression to diabetes. It is recommended to take in no more than 2000mg of sodium daily to keep your blood pressure under control. It is also strongly recommended to stay compliant with your CPAP mask to treat sleep apnea. If noncompliant with this therapy, you may experience more daytime fatigue and morning headaches. You may also see a rise in blood pressure. It was a pleasure taking care of you! Please call if you have any questions or problems. You can reach a [facility] hospitalist on duty at [facility] 24 hours a day by calling [phone]. Take care of yourself. Norah Kurtz, [facility] Center[facility] Pending Studies at Discharge: No Stand-Alone Forms: [facility], Smoking Cessation Medications and DC Order Prescriptions: New clonidine HCl 0.1 mg Tablet 0.1 mg PO BID@0800,2000 Qty: 60 RF: 1 prednisone 20 mg Tablet 20 mg PO DAILY@0800 Qty: 5 RF: 0 azithromycin 250 mg tablet See Rx Instructions .ROUTE .COMPLEX Qty: 6 RF: 0 spironolactone 25 mg tablet 12.5 mg PO DAILY Qty: 30 RF: 1 Continued (DME) CPAP Machine Misc See Rx Instructions .ROUTE .MEDSUPPLY Qty: 1 RF: 0 sertraline [Zoloft] 100 mg tablet 100 mg PO QAM Qty: 30 RF: 3 (DME) Vortex Holding Chamber spacer See Dose Instructions .ROUTE .MEDSUPPLY Qty: 1 RF: 0 (DME) Oxygen Home Liters Per Minute See Dose Instructions .ROUTE .MEDSUPPLY Qty: 1 RF: 0 aspirin [Lo-Dose Aspirin] 81 mg tablet,delayed release (DR/EC) 81 mg PO QAM Qty: 30 RF: 0 atorvastatin [Lipitor] 40 mg tablet 40 mg PO HS RF: 0 Spiriva Respimat 2.5 mcg/actuation mist 2 puffs inhalation QAM Qty: 1 RF: 3 ipratropium-albuterol 0.5 mg-3 mg(2.5 mg base)/3 mL solution for nebulization 3 ml INH Q8H PRN (Reason: shortness of breath or wheezing) Qty: 180 RF: 2 diltiazem HCl [Cartia XT] 180 mg Capsule,Extended Release 24hr 180 mg PO QAM RF: 0 Breo Ellipta 200-25 mcg/dose blister with device 1 ea INHALATION DAILY PRN (Reason: Shortness Of Breath Or Wheezing) RF: 0 levothyroxine 112 mcg tablet 112 mcg PO DAILY RF: 0 montelukast 10 mg tablet 10 mg PO HS RF: 0 furosemide [Lasix] 20 mg tablet 20 mg PO BID RF: 0 pantoprazole [Protonix] 40 mg tablet,delayed release (DR/EC) 40 mg PO DAILYBB RF: 0 azelastine 137 mcg (0.1 %) aerosol,spray 1 spray INTRANASAL BID PRN (Reason: chronic sinusitis) RF: 0 loratadine [Claritin] 10 mg Tablet 10 mg PO QAM RF: 0 buspirone 15 mg tablet 15 mg PO HS RF: 0 donepezil [Aricept] 5 mg tablet 5 mg PO DAILY RF: 0 trazodone 50 mg tablet 50 mg PO HS RF: 0 albuterol sulfate [Ventolin HFA] 90 mcg/actuation HFA aerosol inhaler 2 inha INH Q4H PRN (Reason: Wheezing) RF: 0 losartan [Cozaar] 100 mg tablet 100 mg PO QAM RF: 0 Discontinued clonidine HCl [Catapres] 0.1 mg tablet 0.1 mg PO HS RF: 0 Discharge Orders: Discharge Order (Routine); Ordered 12/08/19 Ordered By: Norah Kurtz Admission Data Admit Date/Time: 12/07/19 17:40 Attending Provider: Norah Kurtz Admit Provider: Jase Cornell Primary Care Provider: Cristina Vizcarra Other Providers: Jase Cornell ; Shant Crawford ; Efraín Ramirez
--- NOTE | 2019-12-08 11:07 | Cardiology Consultation ---
Date of Consultation December 08, 2019 Assessment & Plan (1) Hypertensive urgency: Patient with longstanding hypertension presents with marked elevation in blood pressures. Multifactorial likely etiology. There may be some component of medical noncompliance as well. Patient has responded promptly to adjustments of medical therapies resumption of diuretics increasing clonidine. Thyroid replacement currently supra therapeutic Recommendations continue outpatient regimen with increase in dosing of clonidine as ordered. Continue furosemide at 20 mg twice daily and add spironolactone 12.5 mg/day to maintain potassium level Continue close follow-up with outpatient services (2) Chest pain: Symptoms and description atypical for angina without evidence of ischemia with normal EKG and cardiac enzymes, normal heart function Would recommend stress nuclear imaging post discharge in order of completeness. (3) ILD (interstitial lung disease): O2 dependent follows with pulmonology documented pulmonary fibrosis by biopsy History of Present Illness Reason for Consultation: Hypertensive urgency Requesting Physician: Dr. Kurtz Attending Physician: Norah Kurtz, DO History of Present Illness Patient is a 69-year-old female with longstanding hypertension dating back to late teens. Her ongoing medical problems include chronic obstructive lung disease/emphysema with interstitial pulmonary fibrosis by biopsy, O2 dependent, obstructive sleep apnea. In addition patient carries a history of prior breast carcinoma and is status post chest radiation therapy, chronic esophageal dys motility. Patient has a history of chronic low-grade chest pain She is followed closely by primary care physician and [facility] at home Patient presented this admission noted by patient to have significant elevated blood pressures at home. Patient had been aware of increasing lower extremity edema mild blurred vision. Notes no acute chest pain with chronic chest discomfort present. Had been we aring oxygen, less faithful with CPAP. Recent prednisone course approximately 1 month ago Blood pressures elevated on presentation but have responded to change of medical therapies. Patient had prompt diuresis and resolve of lower extremity edema She was referred in for further assistance in management Allergies Allergy/AdvReac Type Severity Reaction Status Date / Time baclofen Allergy Severe Unknown Verified 12/07/19 01:29 cefuroxime Allergy Severe Hives and Unverified 12/07/19 01:29 Dizziness hydralazine Allergy Intermediate joint pain Verified 12/07/19 01:29 tetracycline Allergy Mild RASH Verified 12/07/19 01:29 amlodipine AdvReac Mild Edema. Verified 12/07/19 01:29 Home Medications Home Medications Medication Instructions Recorded Confirmed Type Oxygen Home #1 ea 03/09/19 08/15/19 History aspirin 81 mg tablet,delayed 81 mg PO QAM #30 tab 03/09/19 12/06/19 History release inhalational spacing device #1 ea 03/09/19 08/15/19 History atorvastatin 40 mg tablet 40 mg PO HS 03/12/19 12/06/19 History albuterol sulfate [Ventolin HFA] 2 inha INH Q4H PRN 07/29/19 12/06/19 History azelastine 1 spray INTRANASAL BID PRN 07/29/19 12/07/19 History buspirone 15 mg PO HS 07/29/19 12/07/19 History donepezil [Aricept] 5 mg PO DAILY 07/29/19 12/06/19 History loratadine [Claritin] 10 mg PO QAM 07/29/19 12/06/19 History losartan [Cozaar] 100 mg PO QAM 07/29/19 12/06/19 History pantoprazole [Protonix] 40 mg PO DAILYBB 07/29/19 12/06/19 History trazodone 50 mg PO HS 07/29/19 12/07/19 History CPAP Machine #1 ea 08/06/19 08/15/19 Rx clonidine HCl [Catapres] 0.1 mg PO HS 08/12/19 12/07/19 History diltiazem HCl [Cartia XT] 180 mg PO QAM 08/12/19 12/06/19 History ipratropium 0.5 mg-albuterol 3 mg 3 ml INH Q8H PRN #180 ml 08/15/19 12/06/19 Rx (2.5 mg base)/3 mL nebulization soln tiotropium bromide 2.5 2 puffs INHALATION QAM #1 gm 08/15/19 12/06/19 Rx mcg/actuation mist for inhalation sertraline 100 mg tablet 100 mg PO QAM #30 tab 10/15/19 12/06/19 Rx fluticasone furoate-vilanterol 1 ea INHALATION DAILY PRN 12/06/19 12/07/19 History [Breo Ellipta] levothyroxine 112 mcg PO DAILY 12/06/19 12/06/19 History montelukast 10 mg PO HS 12/06/19 12/06/19 History furosemide [Lasix] 20 mg PO BID 12/07/19 12/07/19 History azithromycin See Rx Instructions .ROUTE 12/08/19 Rx .COMPLEX #6 tab clonidine HCl 0.1 mg PO BID@0800,1999 #60 tab 12/08/19 Rx prednisone 20 mg PO DAILY@0800 #5 tab 12/08/19 Rx spironolactone 12.5 mg PO DAILY #30 tab 12/08/19 Rx Patient History Medical History Anxiety and depression (Chronic) Axillary lymphadenopathy Chronic respiratory failure with hypoxia (Chronic) CKD (chronic kidney disease), stage III COPD (chronic obstructive pulmonary disease) History of breast cancer HTN (hypertension) (Chronic) Hyperlipidemia Hypothyroidism (Chronic) ILD (interstitial lung disease) (Acute) Mild cognitive impairment BERNA (obstructive sleep apnea) Prediabetes Restless legs syndrome Surgical History S/P mastectomy S/P mastectomy, bilateral (Resolved) Family History Sister Myocardial infarction Sister Stroke Social History Preferred Language: Occitan Communication Ability: 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 Beliefs That Will Affect Care: None marital status: Current Living Situation: Alone Other Information That Helps Us Care for You: No Feels Safe at Home: Yes Safety Concerns: Feels Safe At This Time Smoking Status: Unknown if ever smoked Hx Alcohol Use: No Hx Substance Use: No Review of Systems Review of Systems: All systems reviewed & are unremarkable except as noted in HPI & below Physical Exam Constitutional: + thin and + cachectic; no acute distress Eyes: PERRL, conjunctivae normal, anicteric sclerae ENMT: external ear and nose normal, oropharynx normal Neck: trachea midline, no thyromegaly Respiratory: Auscultation: + diminished lung sounds and + wheezes (Scattered worse with forced expiration and cough) Cardiovascular: Rate/Rhythm: regular rate and regular rhythm Heart Sounds: normal S1 and normal S2; no gallop and no murmur Palpation: normal PMI Vessels: normal carotid upstroke and radial pulses present; no JVD and no carotid bruit Extremities: no edema Gastrointestinal (Abdomen): normal bowel sounds, soft, nontender, no hepatosplenomegaly Musculoskeletal: no cyanosis or clubbing, extremities motor strength 5/5 Skin: no rashes, warm and dry Neurologic: PERRL, EOMI, accommodation nl, no face palsy, no dysarthria Psychiatric: A+Ox3, euthymic affect Results & Data ([place]) Vital Signs (Past 12 Hours) Vital Signs Temp Pulse Pulse Resp BP Pulse Ox 12/08/19 08:00 55 L 12/08/19 07:41 36.7 C 61 19 131/72 95 12/08/19 03:28 36.7 C 66 17 120/71 94 12/07/19 23:59 87 12/07/19 23:53 36.6 C 80 18 142/68 H 95 Laboratory Results Laboratory Results - last 24 hr 12/07/19 12/07/19 12/07/19 11:43 16:30 20:45 Sodium Potassium Chloride Carbon Dioxide Anion Gap BUN Creatinine Est Cr Clr Drug Dosing Est GFR ( Amer) Est GFR (Non-Af Amer) BUN/Creatinine Ratio Glucose POC Glucose 174 H 137 H 142 H Estimat Average Glucose Hemoglobin A1c Calcium 12/08/19 12/08/19 12/08/19 06:08 06:08 07:23 Sodium 136 Potassium 4.4 Chloride 105 Carbon Dioxide 26 Anion Gap 5.0 BUN 18 Creatinine 0.98 Est Cr Clr Drug Dosing 58.0 Est GFR ( Amer) 67.3 Est GFR (Non-Af Amer) 58.0 BUN/Creatinine Ratio 18.9 Glucose 123 H POC Glucose 148 H Estimat Average Glucose 134 Hemoglobin A1c 6.3 H Calcium 9.6
--- NOTE | 2019-12-08 22:22 | Electrocardiogram Report ---
Test Reason : Blood Pressure : / mmHG Vent. Rate : 057 BPM Atrial Rate : 057 BPM P-R Int : 168 ms QRS Dur : 084 ms QT Int : 440 ms P-R-T Axes : 067 006 036 degrees QTc Int : 428 ms Sinus bradycardia Otherwise normal ECG When compared with ECG of 06-DEC-2019 23:20, No significant change was found Confirmed by Rishabh Villa ([id number]) on 12/08/2019 10:22:40 PM Referred By: REFERRED SELF Confirmed By:Rishabh Villa
== END 2019-12-08 14:40 | disposition home or self-care (01) | DRG 305 ==
LOC: 2S 22:49 → ED 22:49 → SUATTDRO 12-07 05:03 → 2S 12-07 06:39

== ENCOUNTER 2021-01-15 21:34 | Inpatient (IN) ==
[2021-01-15 22:06] LABS: Hematocrit (blood only) 40.4 % (37-47); Hemoglobin 13.6 g/dL (12.0-16.0); Immature Granulocytes # (auto) 0.01 K/uL (0.00-0.02); Immature Granulocytes % (auto) 0.2 %; Lymphocytes # (auto) 0.54 K/uL (1.2-3.4); Lymphocytes % (auto) 12.2 %; Mean Corpuscular Hemoglobin 29.5 pg (25-34); Mean Corpuscular Hgb Conc 33.7 g/dL (32-36); Mean Corpuscular Volume 87.6 fL (80-100); Mean Platelet Volume 9.8 fL (7.4-10.4); Monocytes # (auto) 0.03 K/uL (0.11-0.59); Monocytes % (auto) 0.7 %; Neutrophils # (auto) 3.85 K/uL (1.4-6.5); Neutrophils % (auto) 86.9 %; Platelet Count 265 K/uL (130-400); RDW Coefficient of Variation 13.1 % (11.5-14.5); Red Blood Count 4.61 M/uL (4.2-5.4); White Blood Count 4.43 K/uL (4.8-10.8)
[2021-01-15 22:23] LABS: Alanine Aminotransferase 30 U/L (12-78); Albumin Level 3.7 gm/dl (3.4-5.0); Aspartate Aminotransferase 24 U/L (15-37); BUN Creatinine Ratio 11.3 (10-20); Blood Urea Nitrogen 16 mg/dl (7-18); Calcium 9.6 mg/dl (8.5-10.1); Carbon Dioxide 24 mmol/L (21-32); Chloride 104 mmol/L (98-107); Est GFR (African American) 44.2 ml/min; Est GFR (Non-African American) 38.1 ml/min; Glucose 217 mg/dl (70-99); Potassium 4.1 mmol/L (3.5-5.1); Sodium 136 mmol/L (136-145)
[2021-01-15 22:26] LABS: Albumin Globulin Ratio 0.9 (0.9-2); Alkaline Phosphatase 131 U/L (45-117); Bilirubin,Total 0.3 mg/dl (0.2-1); Globulin 4.2 gm/dl (2.5-4.0); Total Protein 7.9 gm/dl (6.4-8.2)
--- NOTE | 2021-01-15 23:11 | Emergency Department Note ---
Impression & Plan SOB (shortness of breath), Severe hypertension, COPD exacerbation ED Provider Note INFORMANT: Patient ED PROVIDER(S): Jose Sinha MD CHIEF COMPLAINT: Shortness of breath PLAN: Disposition: Admitted Condition: Good Outpatient prescription management: none Referral: None MEDICAL DECISION MAKING: Patient presented with wheezing or shortness of breath. She has a significant pulmonary history. She was significantly hypertensive. She had blood pressures of 200 systolic at home. Her blood pressure on my evaluation was 225/134. The patient was given a DuoNeb. She received steroids at home. She was also given Nitropaste due to the severe hypertension and breathing difficulties. This did help control blood pressure well. On reassessment she was feeling much better. Her ECG did not show any acute ischemic findings. The patient had an unremarkable CBC and chemistry panel except for hyperglycemia. Due to the breathing issues, hypertension, and prior history further management in the hospital is felt to be appropriate. CT imaging of the chest was ordered. [facility] The patient was evaluated in the ER for further management. CT imaging is pending at this time. Triage Nursing notes reviewed and agree them. Vital Signs: reviewed and remarkable for severe hypertension Differential diagnosis: Reactive airway disease, pneumonia, pneumothorax, COPD, CHF, infections, cardiac ischemia, pulmonary embolism, musculoskeletal, gastrointestinal, as well as other pathologies. Diagnostics interpreted by me: ECG: Twelve-lead ECG reveals normal sinus rhythm at 96 bpm. Left ventricular hypertrophy present. No ST elevation or depression. No PACs or PVCs. Cardiac Monitoring: Cardiac monitoring ordered by me: The patient was placed on continuous cardiac monitoring and observed. It revealed a normal sinus rhythm at 90 beats per minute without ectopy or evidence of dysrhythmia. Imaging studies: Chest x-ray reveals chronic fibrotic changes. No evidence of pneumothorax or hemothorax. No acute infiltrate. HPI: The patient is a 70 year old female who presents to the Emergency Room with complaints of SOB. This started a few days ago and is worsening. The patient also notes the following associated symptoms, wheezing and hypertension, mild chest pain, and headache. The patient has just been given a steroid injection, prednisone taper, and augmentin for relieving factors. Current pain is rated as 4/10. Pt denies LOC, fevers, chills, diaphoresis, visual changes, neck pain, nausea, vomiting, abdominal pain, back pain, melena, hematochezia, urinary symptoms, new numbness, weakness, lymphadenopathy, rash, or other complaints. ROS: See above HPI for pertinent positives & negatives. A total of 10 systems reviewed and were otherwise negative. PAST MEDICAL HISTORY:See Below , IPF, COPD PAST SURGICAL HISTORY:See Below, FAMILY HISTORY:See Below SOCIAL HISTORY:See Below, lives alone HOME MEDICATIONS:See Below ALLERGIES:See Below VITALS:See Below PHYSICAL EXAMINATION: GENERAL: Awake, alert, well-appearing, in no distress HENT: Normocephalic, atraumatic. Oropharynx unremarkable. EYES: Normal conjunctiva. Sclera non-icteric. NECK: Inspection normal. Non-tender. Supple. No nuchal rigidity. FROM. No masses. RESPIRATORY: Scattered wheezes. No rales. Normal respiratory effort. CARDIAC: Tachycardic rate. Normal rhythm. No murmurs. No rubs. Extremities warm and well perfused. Pulses equal. No JVD. GI: Soft, non-distended. No tenderness to palpation. No rebound or guarding. No masses. RECTAL: Deferred. MUSCULOSKELETAL: Atraumatic. Chest examination reveals no tenderness. The back is symmetrical on inspection without obvious abnormality. There is no CVA tenderness to palpation. No joint edema. LOWER EXTREMITIES: Calves are equal size bilaterally and non-tender. No edema. No discoloration. NEURO: Normal sensorium. No sensory or motor deficits noted. SKIN: No rash or jaundice noted. Jose Sinha MD Past Med/Surg History Medical History (Updated 01/16/21 @ 03:05 by Jose Sinha MD) Anxiety and depression Axillary lymphadenopathy Chronic back pain Chronic respiratory failure with hypoxia CKD (chronic kidney disease), stage III stage 3. follows with pcp. COPD (chronic obstructive pulmonary disease) Degenerative disc disease GERD (gastroesophageal reflux disease) History of breast cancer bilateral HTN (hypertension) Hx of duodenal ulcer Hyperlipidemia Hypothyroidism ILD (interstitial lung disease) Mild cognitive impairment On home oxygen therapy 2lpm via n/c continuous BERNA (obstructive sleep apnea) cpap Osteoarthritis Prediabetes Pulmonary fibrosis Restless legs syndrome hx SCC (squamous cell carcinoma) face Surgical History History of bilateral tubal ligation History of bronchoscopy History of cardiac cath no stents. (~1979) History of colonoscopy History of esophagogastroduodenoscopy (EGD) History of lung surgery thorascopy for lung biopsy S/P mastectomy, bilateral lymph node removal Left arm S/P thyroidectomy partial (r/t nodule) Family History Sister Myocardial infarction Sister Stroke Other No family history of adverse response to anesthesia Social History Smoking Status: Never smoker Tobacco Type: Cigarettes Number of Years Since Quit: 9; Second Hand Exposure: Yes (hx); Hx Alcohol Use: No Hx Substance Use: No Preferred Language: Haitian Communication Ability: Effective Atm Technician Required: No Beliefs That Will Affect Care: None marital status: Current Living Situation: Alone How many Children do You have: 2 Feels Safe at Home: Yes Assistive Devices: CPAP, Glasses, Oxygen - Continuous and Walker Allergies Allergies Allergy/AdvReac Type Severity Reaction Status Date / Time baclofen Allergy Severe Unknown Verified 01/16/21 01:16 cefuroxime Allergy Severe Hives and Verified 01/16/21 01:16 Dizziness hydralazine Allergy Intermediate joint pain Verified 01/16/21 01:16 tetracycline Allergy Mild RASH Verified 01/16/21 01:16 budesonide AdvReac Severe caused her Verified 01/16/21 01:16 to cough constantly amlodipine AdvReac Mild Edema. Verified 01/16/21 01:16 Home Meds Home Medications Medication Instructions Recorded Confirmed aspirin 81 mg tablet,delayed 81 mg PO QAM #30 tab 03/09/19 01/16/21 release (Lo-Dose Aspirin) inhalational spacing device #1 ea 03/09/19 11/12/20 (Vortex Holding Chamber) buspirone 15 mg tablet 15 mg PO HS 07/29/19 01/16/21 loratadine 10 mg tablet (Claritin) 10 mg PO QAM 07/29/19 01/16/21 losartan 100 mg tablet (Cozaar) 100 mg PO QAM 07/29/19 01/16/21 pantoprazole 40 mg tablet,delayed 40 mg PO DAILYBB 07/29/19 01/16/21 release (Protonix) diltiazem HCl 180 mg 180 mg PO QAM 08/12/19 01/16/21 capsule,extended release 24 hr (Cartia XT) montelukast 10 mg tablet 10 mg PO HS 12/06/19 01/16/21 furosemide 20 mg tablet (Lasix) 20 mg PO BID 12/07/19 01/16/21 levothyroxine 100 mcg tablet 100 mcg PO QAM 01/23/20 01/16/21 clonidine HCl 0.1 mg tablet 0.1 mg PO BID@0800,2000 tab 05/13/20 01/16/21 buspirone 15 mg tablet 7.5 mg PO QAM 01/16/21 01/16/21 gabapentin 100 mg capsule 100 mg PO HS 01/16/21 01/16/21 Previous Rx's Medication Instructions Recorded CPAP Machine #1 ea 08/06/19 sertraline 100 mg tablet (Zoloft) 100 mg PO QAM #30 tab 10/15/19 guaifenesin 600 mg tablet, 600 mg PO BID PRN #60 tab 01/09/20 extended release 12 hr (Mucinex) donepezil 5 mg tablet (Aricept) 5 mg PO DAILY #30 tab 01/10/20 Portable Oxygen #1 ea 04/04/20 albuterol sulfate 90 mcg/actuation 2 puff INH Q4H PRN #18 gm 05/13/20 aerosol inhaler (Ventolin HFA) ipratropium 0.5 mg-albuterol 3 mg 3 ml INH Q8H PRN #180 ml 05/13/20 (2.5 mg base)/3 mL nebulization soln codeine 10 mg-guaifenesin 100 mg/5 5 ml PO Q6H PRN #236 ml 08/20/20 mL oral liquid amoxicillin 875 mg-potassium 1 tab PO Q12H #20 tab 01/15/21 clavulanate 125 mg tablet (Augmentin) prednisone 10 mg tablet See Rx Instructions PO DAILY #36 01/15/21 tab Results & Data (ED) Vital Signs Vital Signs - 24 hr 01/15/21 21:40 01/15/21 21:47 01/15/21 22:05 Temperature 36.8 C Temperature Source Oral Pulse Rate 97 H 97 H Pulse Rate [Left] 98 H Pulse Rate from SpO2 Sensor 98 H Pulse Rhythm Regular Pulse Rhythm [Left] Regular Pulse Strength Normal Pulse Strength [Left] Normal Respiratory Rate 22 22 18 Respiratory Effort / Characteristics Non-Labored Non-Labored Respiratory Depth Normal Normal Respiratory Pattern Regular Regular Blood Pressure 180/110 H Blood Pressure [Right Arm] 173/98 H Blood Pressure Mean 133 Blood Pressure Mean [Right Arm] 123 Blood Pressure Position Sitting Blood Pressure Position [Right Arm] Lying Pulse Oximetry 97 97 95 Oxygen Delivery Method Nasal Cannula Nasal Cannula Nasal Cannula Oxygen Flow Rate 2 2 2 Sepsis Recent Fever Within 48 Hours No Sepsis New/Unexplained Change in Mental Status N/A Sepsis Action Taken by Nursing No Action Required 01/15/21 22:15 01/15/21 22:29 01/15/21 23:25 Temperature Temperature Source Pulse Rate 101 H Pulse Rate [Left] 96 H 96 H Pulse Rate from SpO2 Sensor 103 H Pulse Rhythm Pulse Rhythm [Left] Regular Pulse Strength Pulse Strength [Left] Normal Respiratory Rate 24 21 22 Respiratory Effort / Characteristics Non-Labored Spontaneous Short of Breath Respiratory Depth Normal Respiratory Pattern Regular Blood Pressure 172/79 H Blood Pressure [Right Arm] 183/97 H Blood Pressure Mean 110 Blood Pressure Mean [Right Arm] 125 Blood Pressure Position Blood Pressure Position [Right Arm] Lying Pulse Oximetry 95 96 96 Oxygen Delivery Method Nasal Cannula Nasal Cannula Nasal Cannula Oxygen Flow Rate 2 2 2 Sepsis Recent Fever Within 48 Hours Sepsis New/Unexplained Change in Mental Status Sepsis Action Taken by Nursing 01/15/21 23:30 01/16/21 00:30 01/16/21 01:00 Temperature Temperature Source Pulse Rate 101 H 107 H 103 H Pulse Rate [Left] Pulse Rate from SpO2 Sensor 102 H 107 H 104 H Pulse Rhythm Pulse Rhythm [Left] Pulse Strength Pulse Strength [Left] Respiratory Rate 22 22 20 Respiratory Effort / Characteristics Respiratory Depth Respiratory Pattern Blood Pressure 182/107 H 133/98 139/90 Blood Pressure [Right Arm] Blood Pressure Mean 132 109 106 Blood Pressure Mean [Right Arm] Blood Pressure Position Blood Pressure Position [Right Arm] Pulse Oximetry 99 97 91 Oxygen Delivery Method Nasal Cannula Nasal Cannula Nasal Cannula Oxygen Flow Rate Sepsis Recent Fever Within 48 Hours Sepsis New/Unexplained Change in Mental Status Sepsis Action Taken by Nursing 01/16/21 01:30 01/16/21 02:30 Temperature Temperature Source Pulse Rate 101 H 90 Pulse Rate [Left] Pulse Rate from SpO2 Sensor 103 H 96 H Pulse Rhythm Pulse Rhythm [Left] Pulse Strength Pulse Strength [Left] Respiratory Rate 15 20 Respiratory Effort / Characteristics Respiratory Depth Respiratory Pattern Blood Pressure 124/83 147/88 H Blood Pressure [Right Arm] Blood Pressure Mean 96 107 Blood Pressure Mean [Right Arm] Blood Pressure Position Blood Pressure Position [Right Arm] Pulse Oximetry 94 94 Oxygen Delivery Method Nasal Cannula Nasal Cannula Oxygen Flow Rate Sepsis Recent Fever Within 48 Hours Sepsis New/Unexplained Change in Mental Status Sepsis Action Taken by Nursing Laboratory Data Result diagrams: 01/15/21 21:53 01/15/21 21:53 Lab Results 01/15/21 01/15/21 01/15/21 Range/Units 21:53 21:53 23:40 WBC 4.43 L (4.8-10.8) K/uL RBC 4.61 (4.2-5.4) M/uL Hgb 13.6 (12.0-16.0) g/dL Hct 40.4 (37-47) % MCV 87.6 (80-100) fL MCH 29.5 (25-34) pg MCHC 33.7 (32-36) g/dL RDW Std Deviation 42.0 (36.4-46.3) fL RDW Coeff of Karel 13.1 (11.5-14.5) % Plt Count 265 (130-400) K/uL MPV 9.8 (7.4-10.4) fL Immature Gran % (Auto) 0.2 % Neut % (Auto) 86.9 % Lymph % (Auto) 12.2 % [place] % (Auto) 0.7 % Eos % (Auto) 0.0 % Baso % (Auto) 0.0 % Neut # (Auto) 3.85 (1.4-6.5) K/uL Lymph # (Auto) 0.54 L (1.2-3.4) K/uL [place] # (Auto) 0.03 L (0.11-0.59) K/uL Eos # (Auto) 0.00 (0-0.5) K/uL Baso # (Auto) 0.00 (0-0.2) K/uL Immature Gran # (Auto) 0.01 (0.00-0.02) K/uL Sodium 136 (136-145) mmol/L Potassium 4.1 (3.5-5.1) mmol/L Chloride 104 (98-107) mmol/L Carbon Dioxide 24 (21-32) mmol/L Anion Gap 8.0 (3-11) BUN 16 (7-18) mg/dl Creatinine 1.38 H (0.6-1.2) mg/dl Est Cr Clr Drug Dosing 40.0 ml/min Est GFR ( Amer) 44.2 ml/min Est GFR (Non-Af Amer) 38.1 ml/min BUN/Creatinine Ratio 11.3 (10-20) Glucose 217 H (70-99) mg/dl Calcium 9.6 (8.5-10.1) mg/dl Magnesium 2.0 (1.8-2.4) mg/dl Total Bilirubin 0.3 (0.2-1) mg/dl AST 24 (15-37) U/L ALT 30 (12-78) U/L Alkaline Phosphatase 131 H (45-117) U/L Troponin I < 0.015 (0-0.045) ng/ml NT-Pro-B Natriuret Pep 206 (0-900) pg/ml Total Protein 7.9 (6.4-8.2) gm/dl Albumin 3.7 (3.4-5.0) gm/dl Globulin 4.2 H (2.5-4.0) gm/dl Albumin/Globulin Ratio 0.9 (0.9-2) COVID-19 Eval Order Covid19 at [facility] SARS-CoV-2 (PCR) (Negative) 01/15/21 Range/Units 23:40 WBC (4.8-10.8) K/uL RBC (4.2-5.4) M/uL Hgb (12.0-16.0) g/dL Hct (37-47) % MCV (80-100) fL MCH (25-34) pg MCHC (32-36) g/dL RDW Std Deviation (36.4-46.3) fL RDW Coeff of Karel (11.5-14.5) % Plt Count (130-400) K/uL MPV (7.4-10.4) fL Immature Gran % (Auto) % Neut % (Auto) % Lymph % (Auto) % [place] % (Auto) % Eos % (Auto) % Baso % (Auto) % Neut # (Auto) (1.4-6.5) K/uL Lymph # (Auto) (1.2-3.4) K/uL [place] # (Auto) (0.11-0.59) K/uL Eos # (Auto) (0-0.5) K/uL Baso # (Auto) (0-0.2) K/uL Immature Gran # (Auto) (0.00-0.02) K/uL Sodium (136-145) mmol/L Potassium (3.5-5.1) mmol/L Chloride (98-107) mmol/L Carbon Dioxide (21-32) mmol/L Anion Gap (3-11) BUN (7-18) mg/dl Creatinine (0.6-1.2) mg/dl Est Cr Clr Drug Dosing ml/min Est GFR ( Amer) ml/min Est GFR (Non-Af Amer) ml/min BUN/Creatinine Ratio (10-20) Glucose (70-99) mg/dl Calcium (8.5-10.1) mg/dl Magnesium (1.8-2.4) mg/dl Total Bilirubin (0.2-1) mg/dl AST (15-37) U/L ALT (12-78) U/L Alkaline Phosphatase (45-117) U/L Troponin I (0-0.045) ng/ml NT-Pro-B Natriuret Pep (0-900) pg/ml Total Protein (6.4-8.2) gm/dl Albumin (3.4-5.0) gm/dl Globulin (2.5-4.0) gm/dl Albumin/Globulin Ratio (0.9-2) COVID-19 Eval Order SARS-CoV-2 (PCR) NEGATIVE (Negative) Administered Medications Discontinued Medications Albuterol (Albut/Ipratrop 3mg/0.5mg Neb 3 Ml Vial) 3 ml NEB NOW STA Stop: 01/15/21 23:13 Last Admin: 01/15/21 23:24 Dose: 3 ml Documented by: [id number] Diltiazem HCl (Diltiazem Hcl 180 Mg Capcr) 180 mg PO NOW STA Stop: 01/16/21 01:00 Last Admin: 01/16/21 02:37 Dose: 180 mg Documented by: [id number] Ioversol (Optiray 320 125ml) 125 ml IV ONCE ONE Stop: 01/16/21 01:48 Last Admin: 01/16/21 01:47 Dose: 82 ml Documented by: [id number] Nitroglycerin (Nitroglycerin 2% Ointment 30gm Tube) 0.5 inch EXT NOW STA Stop: 01/15/21 23:13 Last Admin: 01/15/21 23:38 Dose: 0.5 inch Documented by: [id number] Discharge Plan Visit Data Chief Complaint: Shortness of Breath/Dyspnea Stated Complaint: HYPERTENSION/SOB ED Provider: Jose Sinha Discharge Problem: SOB (shortness of breath), Severe hypertension, COPD exacerbation Forms Stand Alone Forms: [facility] [place] [facility] Prescriptions Prescriptions: No Action (DME) CPAP Machine Misc See Rx Instructions .ROUTE .MEDSUPPLY Qty: 1 RF: 0 sertraline [Zoloft] 100 mg tablet 100 mg PO QAM Qty: 30 RF: 3 donepezil [Aricept] 5 mg tablet 5 mg PO DAILY Qty: 30 RF: 5 (DME) Portable Oxygen Misc See Rx Instructions .MEDSUPPLY Qty: 1 RF: 0 amoxicillin-pot clavulanate [Augmentin] 875-125 mg tablet 1 tab PO Q12H Qty: 20 RF: 0 prednisone 10 mg tablet See Rx Instructions PO DAILY Qty: 36 RF: 0 (DME) Vortex Holding Chamber spacer See Dose Instructions .ROUTE .MEDSUPPLY Qty: 1 RF: 0 aspirin [Lo-Dose Aspirin] 81 mg tablet,delayed release (DR/EC) 81 mg PO QAM Qty: 30 RF: 0 guaifenesin [Mucinex] 600 mg tablet extended release 12hr 600 mg PO BID PRN (Reason: cough and congestion) Qty: 60 RF: 2 codeine-guaifenesin 10-100 mg/5 mL liquid 5 ml PO Q6H PRN (Reason: cough) Qty: 236 RF: 0 clonidine HCl 0.1 mg tablet 0.1 mg PO BID@0800,2000 RF: 0 albuterol sulfate [Ventolin HFA] 90 mcg/actuation HFA aerosol inhaler 2 puff INH Q4H PRN (Reason: Wheezing) Qty: 18 RF: 2 ipratropium-albuterol 0.5 mg-3 mg(2.5 mg base)/3 mL solution for nebulization 3 ml INH Q8H PRN (Reason: shortness of breath or wheezing) Qty: 180 RF: 2 diltiazem HCl [Cartia XT] 180 mg Capsule,Extended Release 24hr 180 mg PO QAM RF: 0 montelukast 10 mg tablet 10 mg PO HS RF: 0 furosemide [Lasix] 20 mg tablet 20 mg PO BID RF: 0 levothyroxine 100 mcg Tablet 100 mcg PO QAM RF: 0 pantoprazole [Protonix] 40 mg tablet,delayed release (DR/EC) 40 mg PO DAILYBB RF: 0 loratadine [Claritin] 10 mg Tablet 10 mg PO QAM RF: 0 buspirone 15 mg tablet 15 mg PO HS RF: 0 losartan [Cozaar] 100 mg tablet 100 mg PO QAM RF: 0 buspirone 15 mg tablet 7.5 mg PO QAM RF: 0 gabapentin 100 mg capsule 100 mg PO HS RF: 0 Referrals Referrals: Cristina Vizcarra MD [Primary Care Provider] -
[2021-01-15] MEDS ORDERED: ALBUT/IPRATROP 3MG/0.5MG NEB 3 ML VIAL NEB STA (23:12)
[2021-01-15] MEDS ORDERED: NITROGLYCERIN 2% OINTMENT 30GM TUBE EXT STA (23:12)
[2021-01-15 23:39] LABS: NT Pro B Type Natriuretic Pept 206 pg/ml (0-900); Troponin I < 0.015 ng/ml (0-0.045)
[2021-01-16] MEDS ORDERED: dilTIAZem HCL 180 MG CAPCR PO STA (00:59)
[2021-01-16] MEDS ORDERED: OPTIRAY 320 125ml IV ONE (01:47)
[2021-01-16] MEDS ORDERED: traMADol HCL 50 MG TABLET PO STA (02:40)
--- NOTE | 2021-01-16 02:42 | History & Physical Report ---
Date of Service January 16, 2021 Assessment & Plan (1) COPD exacerbation: Plan: COPD/ILD exacerbation, no sepsis Rule out recurrent aspiration with hx airway aspiration as per records given episodic coughing with meals/water intake hx esophageal dysmotility/cricopharyngeal achalasia as per records, hx chronic respiratory failure secondary to COPD/ILD on home O2 Uncontrolled hypertension secondary to illness, anxiety BP currently controlled after initial intervention at the ER ARF hx CAD as per records hx BERNA/CPAP intolerance as per records hypothyroidism, euthyroid as of recent outpatient TSH from last month breast cancer status post surgery, chemoradiation/ hormonal treatment intolerance dementia as per records, patient mentating well anxiety/mood disorder, at baseline prediabetes as per records, hemoglobin A1c of 6 last December 2020 past tobacco abuse Medical telemetry Unasyn followed by Augmentin course for possible aspiration pneumonitis Prednisone course, nebs RTC for COPD/ILD exacerbation Pulmonary consult Re: COPD/ILD exacerbation Aspiration precautions, swallow eval Baseline UA, monitor creatinine response to IVF Appropriate to hold home diuretic, ARB until creatinine back to baseline Continue home Cardizem, titrate home clonidine as needed for BP control DVT prophylaxis per Heparin subcu Full code Text document was generated using [employer] voice recognition software. It may contain grammatical or spelling errors. Kindly contact undersigned for clarification of any documentation item in question. History of Present Illness Chief Complaint: Worsening cough, shortness of breath Primary Care Provider: Cristina Vizcarra MD History obtained from patient and records. Medical history significant for chronic respiratory failure secondary to COPD/ILD on home O2, BERNA (CPAP intolerance), CAD as per records, hypertension, hypothyroidism, breast cancer status post surgery/chemoradiation, dementia as per records, hx esophageal dysmotility/cricopharyngeal achalasia as per records, anxiety/mood disorder, dementia as per records, prediabetes as per records, past tobacco abuse. Last confinement December 2019 for COPD exacerbation. Few days history of junky cough symptoms, wheezing, worsening shortness of breath, pleuritic chest pain. Coughing with meals/water intake with occasional choking sensation. Achy headache symptoms which patient attributes to coughing. PCP administered Solu-Medrol IM at patient's home yesterday followed by prednisone course. Augmentin course initiated along with [id number] albuterol neb. Patient consulted ER with worsening symptoms along with elevated SBP of 200s at home. SBP noted to be 180s upon arrival at the ER. Nitropaste along with Solu-Medrol and neb treatment administered at the ER. SBP currently 130s. Medical History as above Surgical History : Bilateral mastectomy, thyroidectomy, cataract surgeries Family History : Leukemia, breast cancer, diabetes, stroke Personal/Social history : Past tobacco abuse, no EtOH intake Allergies Allergy/AdvReac Type Severity Reaction Status Date / Time baclofen Allergy Severe Unknown Verified 01/16/21 01:16 cefuroxime Allergy Severe Hives and Verified 01/16/21 01:16 Dizziness hydralazine Allergy Intermediate joint pain Verified 01/16/21 01:16 tetracycline Allergy Mild RASH Verified 01/16/21 01:16 budesonide AdvReac Severe caused her Verified 01/16/21 01:16 to cough constantly amlodipine AdvReac Mild Edema. Verified 01/16/21 01:16 Home Medications Medication Instructions Recorded Confirmed Type aspirin 81 mg tablet,delayed 81 mg PO QAM #30 tab 03/09/19 01/16/21 History release (Lo-Dose Aspirin) inhalational spacing device #1 ea 03/09/19 11/12/20 History (Vortex Holding Chamber) buspirone 15 mg tablet 15 mg PO HS 07/29/19 01/16/21 History loratadine 10 mg tablet (Claritin) 10 mg PO QAM 07/29/19 01/16/21 History losartan 100 mg tablet (Cozaar) 100 mg PO QAM 07/29/19 01/16/21 History pantoprazole 40 mg tablet,delayed 40 mg PO DAILYBB 07/29/19 01/16/21 History release (Protonix) CPAP Machine #1 ea 08/06/19 11/12/20 Rx diltiazem HCl 180 mg 180 mg PO QAM 08/12/19 01/16/21 History capsule,extended release 24 hr (Cartia XT) sertraline 100 mg tablet (Zoloft) 100 mg PO QAM #30 tab 10/15/19 01/16/21 Rx montelukast 10 mg tablet 10 mg PO HS 12/06/19 01/16/21 History furosemide 20 mg tablet (Lasix) 20 mg PO BID 12/07/19 01/16/21 History guaifenesin 600 mg tablet, 600 mg PO BID PRN #60 tab 01/09/20 01/16/21 Rx extended release 12 hr (Mucinex) donepezil 5 mg tablet (Aricept) 5 mg PO DAILY #30 tab 01/10/20 01/16/21 Rx levothyroxine 100 mcg tablet 100 mcg PO QAM 01/23/20 01/16/21 History Portable Oxygen #1 ea 04/04/20 11/12/20 Rx albuterol sulfate 90 mcg/actuation 2 puff INH Q4H PRN #18 gm 05/13/20 01/16/21 Rx aerosol inhaler (Ventolin HFA) clonidine HCl 0.1 mg tablet 0.1 mg PO BID@0800,2000 tab 05/13/20 01/16/21 Hi story ipratropium 0.5 mg-albuterol 3 mg 3 ml INH Q8H PRN #180 ml 05/13/20 01/16/21 Rx (2.5 mg base)/3 mL nebulization soln codeine 10 mg-guaifenesin 100 mg/5 5 ml PO Q6H PRN #236 ml 08/20/20 01/16/21 Rx mL oral liquid amoxicillin 875 mg-potassium 1 tab PO Q12H #20 tab 01/15/21 01/16/21 Rx clavulanate 125 mg tablet (Augmentin) prednisone 10 mg tablet See Rx Instructions PO DAILY #36 01/15/21 01/16/21 Rx tab buspirone 15 mg tablet 7.5 mg PO QAM 01/16/21 01/16/21 History gabapentin 100 mg capsule 100 mg PO HS 01/16/21 01/16/21 History Past Med/Surg History Medical History (Updated 01/16/21 @ 03:05 by Jose Sinha MD) Anxiety and depression Axillary lymphadenopathy Chronic back pain Chronic respiratory failure with hypoxia CKD (chronic kidney disease), stage III stage 3. follows with pcp. COPD (chronic obstructive pulmonary disease) Degenerative disc disease GERD (gastroesophageal reflux disease) History of breast cancer bilateral HTN (hypertension) Hx of duodenal ulcer Hyperlipidemia Hypothyroidism ILD (interstitial lung disease) Mild cognitive impairment On home oxygen therapy 2lpm via n/c continuous BERNA (obstructive sleep apnea) cpap Osteoarthritis Prediabetes Pulmonary fibrosis Restless legs syndrome hx SCC (squamous cell carcinoma) face Surgical History History of bilateral tubal ligation History of bronchoscopy History of cardiac cath no stents. (~1979) History of colonoscopy History of esophagogastroduodenoscopy (EGD) History of lung surgery thorascopy for lung biopsy S/P mastectomy, bilateral lymph node removal Left arm S/P thyroidectomy partial (r/t nodule) Family History Sister Myocardial infarction Sister Stroke Other No family history of adverse response to anesthesia Social History Smoking Status: Former smoker Tobacco Type: Cigarettes Smoking End Date: 13 yrs ago; Number of Years Since Quit: 9; Second Hand Exposure: Yes (hx); Hx Alcohol Use: No Hx Substance Use: No Preferred Language: German Communication Ability: Effective Dean Of Women Required: No Beliefs That Will Affect Care: None marital status: Current Living Situation: Alone How many Children do You have: 2 Feels Safe at Home: Yes Assistive Devices: None Assistive Devices Comment: noncompliant with cpap Review of Systems Review of Systems: As per HPI, all 10 systems reviewed, all other ROS negative Physical Exam Physical Exam: GENERAL: Slightly uncomfortable, anxious, no respiratory distress SKIN: Normal color, warm HEENT: [place] palpebral conjunctivae, no ptosis, dry buccal mucosa, nasal cannula in place NECK : Supple, no tenderness CHEST : Decreased breath sounds, expiratory wheezes, no tenderness HEART : RRR, no obvious murmurs ABDOMEN: Some distention, nontender EXTREMITIES : No LE swelling/tenderness, no other conspicuous deformities noted NEUROLOGIC : Coherent, no facial asymmetry, no other gross focality Results & Data Results & Data ([facility]) Vital Signs (Past 12 Hours) Vital Signs Temp Pulse Pulse Resp BP BP Pulse Ox 01/16/21 01:00 103 H 20 139/90 91 01/16/21 00:30 107 H 22 133/98 97 01/15/21 23:30 101 H 22 182/107 H 99 01/15/21 23:25 96 H 22 96 01/15/21 22:29 96 H 21 183/97 H 96 01/15/21 22:15 101 H 24 172/79 H 95 01/15/21 22:05 97 H 18 95 01/15/21 21:47 98 H 22 173/98 H 97 01/15/21 21:40 36.8 C 97 H 22 180/110 H 97 Laboratory Results Laboratory Results WBC 4.43 K/uL (4.8-10.8) L 01/15/21 21:53 RBC 4.61 M/uL (4.2-5.4) 01/15/21 21:53 Hgb 13.6 g/dL (12.0-16.0) 01/15/21 21:53 Hct 40.4 % (37-47) 01/15/21 21:53 MCV 87.6 fL (80-100) 01/15/21 21:53 MCH 29.5 pg (25-34) 01/15/21 21:53 MCHC 33.7 g/dL (32-36) 01/15/21 21:53 RDW Std Deviation 42.0 fL (36.4-46.3) 01/15/21 21:53 RDW Coeff of Karel 13.1 % (11.5-14.5) 01/15/21 21:53 Plt Count 265 K/uL (130-400) 01/15/21 21:53 MPV 9.8 fL (7.4-10.4) 01/15/21 21:53 Immature Gran % (Auto) 0.2 % 01/15/21 21:53 Neut % (Auto) 86.9 % 01/15/21 21:53 Lymph % (Auto) 12.2 % 01/15/21 21:53 [place] % (Auto) 0.7 % 01/15/21 21:53 Eos % (Auto) 0.0 % 01/15/21 21:53 Baso % (Auto) 0.0 % 01/15/21 21:53 Neut # (Auto) 3.85 K/uL (1.4-6.5) 01/15/21 21:53 Lymph # (Auto) 0.54 K/uL (1.2-3.4) L 01/15/21 21:53 [place] # (Auto) 0.03 K/uL (0.11-0.59) L 01/15/21 21:53 Eos # (Auto) 0.00 K/uL (0-0.5) 01/15/21 21:53 Baso # (Auto) 0.00 K/uL (0-0.2) 01/15/21 21:53 Immature Gran # (Auto) 0.01 K/uL (0.00-0.02) 01/15/21 21:53 Sodium 136 mmol/L (136-145) 01/15/21 21:53 Potassium 4.1 mmol/L (3.5-5.1) 01/15/21 21:53 Chloride 104 mmol/L (98-107) 01/15/21 21:53 Carbon Dioxide 24 mmol/L (21-32) 01/15/21 21:53 Anion Gap 8.0 (3-11) 01/15/21 21:53 BUN 16 mg/dl (7-18) 01/15/21 21:53 Creatinine 1.38 mg/dl (0.6-1.2) H 01/15/21 21:53 Est Cr Clr Drug Dosing 40.0 ml/min 01/15/21 21:53 Est GFR ( Amer) 44.2 ml/min 01/15/21 21:53 Est GFR (Non-Af Amer) 38.1 ml/min 01/15/21 21:53 BUN/Creatinine Ratio 11.3 (10-20) 01/15/21 21:53 Glucose 217 mg/dl (70-99) H 01/15/21 21:53 Calcium 9.6 mg/dl (8.5-10.1) 01/15/21 21:53 Magnesium 2.0 mg/dl (1.8-2.4) 01/15/21 21:53 Total Bilirubin 0.3 mg/dl (0.2-1) 01/15/21 21:53 AST 24 U/L (15-37) 01/15/21 21:53 ALT 30 U/L (12-78) 01/15/21 21:53 Alkaline Phosphatase 131 U/L (45-117) H 01/15/21 21:53 Troponin I < 0.015 ng/ml (0-0.045) 01/15/21 21:53 NT-Pro-B Natriuret Pep 206 pg/ml (0-900) 01/15/21 21:53 Total Protein 7.9 gm/dl (6.4-8.2) 01/15/21 21:53 Albumin 3.7 gm/dl (3.4-5.0) 01/15/21 21:53 Globulin 4.2 gm/dl (2.5-4.0) H 01/15/21 21:53 Albumin/Globulin Ratio 0.9 (0.9-2) 01/15/21 21:53 COVID-19 Eval Order Covid19 at [facility] 01/15/21 23:40 SARS-CoV-2 (PCR) NEGATIVE (Negative) 01/15/21 23:[address] head initial read: No intracranial hemorrhage, mass-effect or midline shift. No evidence of acute infarct. CT chest initial read: No pulmonary embolus. No aortic aneurysm or dissection. Emphysema. Haziness in the lungs represent atelectasis, pulmonary edema and or atypical infection. Heart size is normal. No fracture. EKG as per my interpretation rate 95, NSR, normal axis, LAE, LVH
[2021-01-16] MEDS ORDERED: BENZONATATE 100 MG CAPSULE PO ONE (04:04)
[2021-01-16] MEDS ORDERED: AMPICILLIN/SULBACTAM SOD 3,000 MG in 0.9 % SODIUM CHLORIDE 100 ML IV STA (04:06)
[2021-01-16] MEDS ORDERED: SODIUM CHLORIDE 0.9% 1000ML 1,000 ML IV ONE (04:48)
[2021-01-16] MEDS ORDERED: ACETAMINOPHEN 325 MG TAB PO PRN (05:49)
[2021-01-16] MEDS ORDERED: AUGMENTIN~CONSULT PHARMACY PRN (06:24)
--- NOTE | 2021-01-16 06:42 | CT Scan Report ---
CT head/brain wo con CLINICAL HISTORY: 70 years-old Female with ruiz. Acute headache TECHNIQUE: Multiple axial CT images of the head were obtained without contrast. A dose lowering tech nique was utilized adhering to the principles of ALARA. CT DOSE: 537.48 mGy.cm COMPARISON: Head CT 12/07/2019 FINDINGS: No acute intracranial hemorrhage, midline shift, intracranial mass, hydrocephalus, territorial ischem ia or abnormal extra-axial collection. The calvarium is intact. The paranasal sinuses, mastoid air cells, and middle ear cavities are clear . IMPRESSION: No acute intracranial abnormality. ACT 112: Negative or not required by law. The above report was generated using voice recognition software. It may contain grammatical, syntax o r spelling errors. Electronically signed by: Derrek Olivares M.D. 01/16/2021 6:40 AM
[2021-01-16] MEDS: HEPARIN SOD 5,000 UNIT/0.5 ML VIAL SQ SCH ×3 (06:54→21:37)
[2021-01-16] MEDS: PANTOprazole 40 MG TAB PO SCH (06:55)
[2021-01-16] MEDS: LEVOTHYROXINE SODIUM 100 MCG TABLET PO SCH (06:55)
[2021-01-16] MEDS ORDERED: XOPENEX/ATROVENT 1.25mg/0.5MG NEB COMBO NEB SCH (07:00)
[2021-01-16] MEDS: IPRATROPIUM BROMIDE NEB SOLN 0.02% 2.5 ML VIAL INH SCH ×3 (07:18→19:18)
[2021-01-16] MEDS: LEVALBUTEROL 1.25MG/0.5ML NEB INH SCH ×3 (07:18→19:18)
[2021-01-16] MEDS: predniSONE 20 MG TAB PO SCH (07:43)
[2021-01-16] MEDS: LORATADINE 10 MG TAB PO SCH (07:43)
[2021-01-16] MEDS: DONEPEZIL HCL 5 MG TAB PO SCH (07:44)
[2021-01-16] MEDS: ASPIRIN 81 MG ECTAB PO SCH (07:44)
[2021-01-16] MEDS: SERTRALINE HCL 100 MG TABLET PO SCH (07:44)
[2021-01-16] MEDS: busPIRone 7.5 MG TAB PO SCH (07:44)
[2021-01-16] MEDS: cloNIDine HCL 0.1 MG TAB PO SCH ×2 (07:49→21:36)
--- NOTE | 2021-01-16 07:49 | CT Scan Report ---
CT ANGIOGRAM OF THE CHEST CLINICAL HISTORY: Atypical chest pain and shortness of breath. Possible acute pulmonary embolism COMPARISON STUDY: Chest x-ray dated 01/15/2021, CT angiography the chest dated 12/07/2019 TECHNIQUE: Following the IV administration of 82 mL of Optiray, CT angiogram of the thorax was perfor med from the thoracic inlet to the lung bases utilizing the pulmonary embolus protocol. Images are re viewed in the axial, sagittal, and coronal planes. IV contrast was administered without complication. MIP imaging was performed. A dose lowering technique was utilized adhering to the principles of ALA RA. CT DOSE: 297.42 mGy.cm FINDINGS: There is a mildly enlarged pretracheal lymph node, unchanged from the prior study. AP window lymph no shyam remaining at the upper limits of normal in size. There was no evidence of thoracic aortic dilatation. There were no pulmonary artery filling defects to indicate acute pulmonary embolism. No pleural effusions are visualized. There is pulmonary emphysema. There is no focal pulmonary consolidation to indicate a pneumonia. Ther e is chronic apical scarring. There are dependent atelectatic changes. There are right lower lobe dep endent calcifications likely postinflammatory. The examination is mildly motion compromised IMPRESSION: 1. No evidence of acute pulmonary embolism 2. Dependent airspace opacities, statistically atelectatic ACT 112: Negative or not required by law. Electronically signed by: Jay Miller M.D. 01/16/2021 7:48 AM
--- NOTE | 2021-01-16 09:02 | XRay Report ---
XR chest 1V portable HISTORY: 70 years-old Female Dyspnea acute shortness of breath COMPARISON: CTA chest 01/16/2021, 12/07/2019. TECHNIQUE: Portable AP view of the chest FINDINGS: Cardiac silhouette is enlarged. Emphysema with interstitial coarsening suggestive of fibrosis. No pne umothorax, pleural effusion, airspace consolidation or overt pulmonary edema. Degenerative changes of the shoulders and spine. IMPRESSION: 1. Cardiomegaly without acute process. 2. Emphysema with chronic interstitial coarsening. ACT 112: Negative or not required by law. The above report was generated using voice recognition software. It may contain grammatical, syntax o r spelling errors. Electronically signed by: Derrek Olivares M.D. 01/16/2021 9:00 AM
--- NOTE | 2021-01-16 09:58 | Pulmonary Consultation ---
Date of Consultation January 16, 2021 Assessment & Plan (1) SOB (shortness of breath): Impression: 70-year-old female with advanced obstructive lung disease/emphysema admitted with shortness of breath likely multifactorial due to combinations of COPD exacerbation hypertensive urgency. Her shortness of breath is markedly better with improvement of her blood pressure. She continues to exhibit some wheezing with expiration. Recommendations: 1. COPD exacerbation: Agree with prednisone 40 mg a day. Would plan on treating her for 5 days and then discontinue. We will place on Anoro. Hold i nhaled steroids as she apparently had issues with coughing in the past with this. Nebulizers as needed. The cycle for acute exacerbation of COPD for 5 dayspatient reports rash but will follow. If she cannot tolerate this, may be able to just use amoxicillin 2. Hypertensive urgency: Management per primary service. 3. Acute kidney injury: Again management per primary service. 4. Hypoxemic respiratory failure: Secondary to #1. Continue supplemental oxygen titrated to keep oxygen saturations at or above 88%. 5. Recommend the patient be up and ambulatory as much as possible. We will continue to follow with you. When her respiratory status is stable, she may be dismissed from the hospital and follow-up in the patient setting with her established pulmonary provider (2) COPD exacerbation: History of Present Illness Attending Physician: Erlin Alvarado MD History of Present Illness Asked by hospitalist to assist in management of this patient admitted with hypertensive urgency, shortness of breath, and obstructive lung disease. History is obtained from discussion with the patient as well as review the electronic medical record. Patient is a pleasant 70-year-old female who is followed in the outpatient setting by RICARDO Collins for severe emphysema interstitial lung disease and chronic hypoxemic respiratory failure. She was last seen in the office back in November and was doing relatively well at that time. Patient presented to the emergency room yesterday evening with complaints of shortness of breath. She was profoundly hypertensive with a systolic blood pressure of over 200 and diastolic of greater than 130. She received steroids and duo nebs as well as Nitropaste. With improvement in her blood pressure, she had significant improvement in her shortness of breath. She had reported some antecedent coughing and wheezing. No fevers chills or night sweats. She denies chest pain palpitations or lower extremity edema. Her appetite has been good and her weight is stable. Morning the patient thinks that her breathing is much better. She still exhibits some wheezing but her coughing and dyspnea are markedly better. Allergies Allergy/AdvReac Type Severity Reaction Status Date / Time baclofen Allergy Severe Unknown Verified 01/16/21 01:16 cefuroxime Allergy Severe Hives and Verified 01/16/21 01:16 Dizziness hydralazine Allergy Intermediate joint pain Verified 01/16/21 01:16 tetracycline Allergy Mild RASH Verified 01/16/21 01:16 budesonide AdvReac Severe caused her Verified 01/16/21 01:16 to cough constantly amlodipine AdvReac Mild Edema. Verified 01/16/21 01:16 Home Medications Medication Instructions Recorded Confirmed Type aspirin 81 mg tablet,delayed 81 mg PO QAM #30 tab 03/09/19 01/16/21 History release (Lo-Dose Aspirin) inhalational spacing device #1 ea 03/09/19 11/12/20 History (Vortex Holding Chamber) buspirone 15 mg tablet 15 mg PO HS 07/29/19 01/16/21 History loratadine 10 mg tablet (Claritin) 10 mg PO QAM 07/29/19 01/16/21 History losartan 100 mg tablet (Cozaar) 100 mg PO QAM 07/29/19 01/16/21 History pantoprazole 40 mg tablet,delayed 40 mg PO DAILYBB 07/29/19 01/16/21 History release (Protonix) CPAP Machine #1 ea 08/06/19 11/12/20 Rx diltiazem HCl 180 mg 180 mg PO QAM 08/12/19 01/16/21 History capsule,extended release 24 hr (Cartia XT) sertraline 100 mg tablet (Zoloft) 100 mg PO QAM #30 tab 10/15/19 01/16/21 Rx montelukast 10 mg tablet 10 mg PO HS 12/06/19 01/16/21 History furosemide 20 mg tablet (Lasix) 20 mg PO BID 12/07/19 01/16/21 History guaifenesin 600 mg tablet, 600 mg PO BID PRN #60 tab 01/09/20 01/16/21 Rx extended release 12 hr (Mucinex) donepezil 5 mg tablet (Aricept) 5 mg PO DAILY #30 tab 01/10/20 01/16/21 Rx levothyroxine 100 mcg tablet 100 mcg PO QAM 01/23/20 01/16/21 History Portable Oxygen #1 ea 04/04/20 11/12/20 Rx albuterol sulfate 90 mcg/actuation 2 puff INH Q4H PRN #18 gm 05/13/20 01/16/21 Rx aerosol inhaler (Ventolin HFA) clonidine HCl 0.1 mg tablet 0.1 mg PO BID@0800,2000 tab 05/13/20 01/16/21 History ipratropium 0.5 mg-albuterol 3 mg 3 ml INH Q8H PRN #180 ml 05/13/20 01/16/21 Rx (2.5 mg base)/3 mL nebulization soln codeine 10 mg-guaifenesin 100 mg/5 5 ml PO Q6H PRN #236 ml 08/20/20 01/16/21 Rx mL oral liquid amoxicillin 875 mg-potassium 1 tab PO Q12H #20 tab 01/15/21 01/16/21 Rx clavulanate 125 mg tablet (Augmentin) prednisone 10 mg tablet See Rx Instructions PO DAILY #36 01/15/21 01/16/21 Rx tab buspirone 15 mg tablet 7.5 mg PO QAM 01/16/21 01/16/21 History gabapentin 100 mg capsule 100 mg PO HS 01/16/21 01/16/21 History Patient History Medical History (Updated 01/16/21 @ 03:05 by Jose Sinha MD) Anxiety and depression Axillary lymphadenopathy Chronic back pain Chronic respiratory failure with hypoxia CKD (chronic kidney disease), stage III stage 3. follows with pcp. COPD (chronic obstructive pulmonary disease) Degenerative disc disease GERD (gastroesophageal reflux disease) History of breast cancer bilateral HTN (hypertension) Hx of duodenal ulcer Hyperlipidemia Hypothyroidism ILD (interstitial lung disease) Mild cognitive impairment On home oxygen therapy 2lpm via n/c continuous BERNA (obstructive sleep apnea) cpap Osteoarthritis Prediabetes Pulmonary fibrosis Restless legs syndrome hx SCC (squamous cell carcinoma) face Surgical History History of bilateral tubal ligation History of bronchoscopy History of cardiac cath no stents. (~1979) History of colonoscopy History of esophagogastroduodenoscopy (EGD) History of lung surgery thorascopy for lung biopsy S/P mastectomy, bilateral lymph node removal Left arm S/P thyroidectomy partial (r/t nodule) Family History Sister Myocardial infarction Sister Stroke Other No family history of adverse response to anesthesia Social History Smoking Status: Former smoker Tobacco Type: Cigarettes Smoking End Date: 13 yrs ago; Number of Years Since Quit: 9; Second Hand Exposure: Yes (hx); Hx Alcohol Use: No Hx Substance Use: No Preferred Language: P[place] Communication Ability: Effective Soaker Soda Worker Required: No Beliefs That Will Affect Care: None marital status: Current Living Situation: Alone How many Children do You have: 2 Feels Safe at Home: Yes Assistive Devices: None Assistive Devices Comment: noncompliant with cpap Review of Systems Review of Systems: Please refer to admission H&P. I have no additions or deletions Physical Exam Constitutional: WD/WN, vitals as above Neck: trachea midline, no thyromegaly Respiratory: normal respiratory effort; no respiratory distress Auscultation: + wheezes; no rales Cardiovascular: RRR, no murmur, no edema Gastrointestinal (Abdomen): normal bowel sounds, soft, nontender, no hepatosplenomegaly Musculoskeletal: Extremities: extremities normal to inspection Skin: no rashes, warm and dry Neurologic: Nonfocal exam Lymphatic: no cervical lymphadenopathy Results & Data Results & Data ([facility]) Vital Signs (Past 12 Hours) Vital Signs Temp Pulse Pulse Resp BP BP Pulse Ox 01/16/21 07:20 36.6 C 76 18 139/75 94 01/16/21 07:18 66 18 94 01/16/21 07:10 88 01/16/21 06:08 83 01/16/21 05:59 36.5 C 82 16 174/77 H 94 01/16/21 05:00 147/74 H 95 01/16/21 04:49 96 01/16/21 03:00 92 H 15 147/91 H 94 01/16/21 02:30 90 20 147/88 H 94 01/16/21 01:30 101 H 15 124/83 94 01/16/21 01:00 103 H 20 139/90 91 01/16/21 00:30 107 H 22 133/98 97 01/15/21 23:30 101 H 22 182/107 H 99 01/15/21 23:25 96 H 22 96 01/15/21 22:29 96 H 21 183/97 H 96 01/15/21 22:15 101 H 24 172/79 H 95 01/15/21 22:05 97 H 18 95 01/15/21 21:47 98 H 22 173/98 H 97 Laboratory Results 01/15/21 21:53 01/15/21 21:53 Troponin negative BNP 206 Diagnostic Findings Imaging studies were independently reviewed. CT angiogram from earlier this mo rning demonstrated no filling defects concerning for thromboembolic disease. Emphysematous changes are identified. Pretracheal lymph node identified unchanged from prior. Dependent atelectatic changes. Paraseptal emphysematous changes are identified most prominently in the apices. There are some small calcified nodules present in the lung bases most prominently on the right. PG Care Time/CCT Total # of Minutes Spent Total Time Spent with Patient: Total time spent is greater than 50% in coord ination of care (as documented) at patient's floor/unit and/or counseling patient: Coding Level of Care Code 98873 Initial Inpt Care Lvl 3 Diagnoses SOB (shortness of breath) R06.02 COPD exacerbation J44.1
[2021-01-16] MEDS ORDERED: AZITHROMYCIN 250 MG TAB PO SCH (10:00)
[2021-01-16] MEDS: DOXYCYCLINE HYCLATE 100 MG CAP PO SCH ×2 (10:33→21:36)
[2021-01-16] MEDS: UMECLIDINIUM/VILANTEROL 62.5/25MCG 7 PUFFS/INHALER INH SCH (10:34)
--- NOTE | 2021-01-16 13:14 | Electrocardiogram Report ---
Test Reason : Blood Pressure : / mmHG Vent. Rate : 096 BPM Atrial Rate : 096 BPM P-R Int : 164 ms QRS Dur : 084 ms QT Int : 362 ms P-R-T Axes : 042 -27 048 degrees QTc Int : 457 ms Normal sinus rhythm Possible Left atrial enlargement Left ventricular hypertrophy with repolarization abnormality Abnormal ECG When compared with ECG of 12-FEB-2020 16:23, Vent. rate has increased BY 34 BPM Confirmed by Jordin Bunn ([id number]) on 01/16/2021 1:13:21 PM Referred By: REFERRED SELF Confirmed By:Ryley Bunn
[2021-01-16] MEDS: BENZONATATE 100 MG CAPSULE PO PRN ×2 (14:03→21:36)
[2021-01-16] MEDS ORDERED: AMOXICILLIN/CLAVULANATE 875 MG TAB PO SCH (17:00)
--- NOTE | 2021-01-16 18:42 | Hospitalist Progress Note ---
Date of Service January 16, 2021 Assessment & Plan (1) COPD exacerbation: Plan: Acute on chronic respiratory failure with hypoxia Chronic oxygen dependency Likely multifactorial secondary to COPD exacerbation, hypertensive urgency -CTA: No evidence of acute pulmonary embolism. Dependent airspace opacities, statistically atelectatic Continue prednisone 40 mg daily Continue bronchodilators Appreciate pulmonary input Continue inhalers as per Pulm Aspiration precautions Continue supplemental oxygen to keep saturations at or greater than 88% We will request speech evaluation Continue doxycycline Dysphagia H/O Esophageal dysmotility/cricopharyngeal achalasia as per records, Aspiration precautions Speech Therapy consulted Hypertensive Crisis Likely worsened from prednisone use Continue clonidine, Cardizem Losartan held secondary to JOSE CRUZ Monitor Acute kidney injury Creatinine 1.38 Hold losartan, furosemide Avoid nephrotoxic agents as able Monitor renal function Hypothyroidism Continue levothyroxine H/O CAD Continue home meds BERNA H/O CPAP intolerance H/O past tobacco use Breast cancer S/P Chemoradiation/ hormonal treatment intolerance Dementia Mood Disorder As per records Continue home meds DVT Px: Heparin SQ Code Status Full code Admission and Anticipated Discharge Date Admission Date: January 16, 2021 Subjective Patient is seen and examined bedside Headache, dyspnea improved since admission Still has persistent cough with expectoration Also reports having dysphagia, chest congestion Offers no other complaints Review of Systems Review of Systems: All systems reviewed & are unremarkable except as noted in Subjective Physical Exam Physical Exam: Physical Exam: Vitals signs as noted above General Appearance:Moderately built and nourished, no apparent distress Head: normocephalic, Atraumatic Eyes: normal inspection, EOMI Neck: supple, Trachea midline Respiratory/Chest: Decreased breath sounds, B/L wheezing, No accessory muscle use Cardiovascular: S1, S2, No murmur Abdomen/GI:Soft, Non tender, Bowel sounds present Extremities/Musculoskeletal:normal inspection, no edema Neurologic/Psych:AAOX3, grossly no focal neurological deficits Skin: normal color, warm Results & Data Results & Data ([facility]) Vital Signs (Past 12 Hours) Vital Signs Temp Pulse Pulse Resp BP Pulse Ox 01/16/21 15:56 95 H 01/16/21 15:16 36.8 C 68 18 126/57 L 98 01/16/21 12:56 82 18 94 01/16/21 11:18 36.9 C 76 18 128/67 93 01/16/21 07:20 36.6 C 76 18 139/75 94 01/16/21 07:18 66 18 94 01/16/21 07:10 88 Laboratory Results Short CBC 01/15/21 Range/Units 21:53 WBC 4.43 L (4.8-10.8) K/uL Hgb 13.6 (12.0-16.0) g/dL Hct 40.4 (37-47) % Plt Count 265 (130-400) K/uL BMP 01/15/21 21:53 Sodium 136 Potassium 4.1 Chloride 104 Carbon Dioxide 24 BUN 16 Creatinine 1.38 H Glucose 217 H Calcium 9.6 Cardiac Enzymes 01/15/21 Range/Units 21:53 Troponin I < 0.015 (0-0.045) ng/ml Liver Function 01/15/21 Range/Units 21:53 Total Bilirubin 0.3 (0.2-1) mg/dl AST 24 (15-37) U/L ALT 30 (12-78) U/L Alkaline Phosphatase 131 H (45-117) U/L Albumin 3.7 (3.4-5.0) gm/dl
[2021-01-16 19:57] LABS: Appearance Urine Clear (Clear); Bilirubin Urine Negative (Negative); Blood Urine Negative (Negative); Color Urine Yellow; Glucose Urine UA Negative (Negative); Ketones Urine Negative (Negative); Leukocyte Esterase Urine Negative (Negative); Nitrite Urine Negative (Negative); Protein Urine Negative (Negative); Specific Gravity Urine 1.022 (1.000-1.030); Urobilinogen Urine Negative (Negative); pH Urine 5.5 (4.5-7.5)
[2021-01-16] MEDS: traMADol HCL 50 MG TABLET PO PRN (21:35)
[2021-01-16] MEDS: MONTELUKAST SODIUM 10 MG TABLET PO SCH (21:37)
[2021-01-16] MEDS: GABAPENTIN 100 MG CAP PO SCH (21:37)
[2021-01-16] MEDS: guaiFENesin/CODEINE 100MG/10MG 5ML UDC PO PRN (22:06)
[2021-01-17] MEDS: IPRATROPIUM BROMIDE NEB SOLN 0.02% 2.5 ML VIAL INH SCH ×5 (00:30→23:55)
[2021-01-17] MEDS: LEVALBUTEROL 1.25MG/0.5ML NEB INH SCH ×5 (00:31→23:54)
[2021-01-17] MEDS: guaiFENesin/CODEINE 100MG/10MG 5ML UDC PO PRN ×3 (05:39→21:02)
[2021-01-17] MEDS: HEPARIN SOD 5,000 UNIT/0.5 ML VIAL SQ SCH ×3 (05:39→20:55)
[2021-01-17] MEDS: LEVOTHYROXINE SODIUM 100 MCG TABLET PO SCH (05:39)
[2021-01-17] MEDS: PANTOprazole 40 MG TAB PO SCH (05:39)
[2021-01-17 06:13] LABS: Basophils # (auto) 0.03 K/uL (0-0.2); Basophils % (auto) 0.3 %; Eosinophils # (auto) 0.08 K/uL (0-0.5); Eosinophils % (auto) 0.7 %; Hematocrit (blood only) 35.2 % (37-47); Hemoglobin 11.8 g/dL (12.0-16.0); Immature Granulocytes # (auto) 0.02 K/uL (0.00-0.02); Immature Granulocytes % (auto) 0.2 %; Lymphocytes # (auto) 2.93 K/uL (1.2-3.4); Lymphocytes % (auto) 26.9 %; Mean Corpuscular Hemoglobin 29.5 pg (25-34); Mean Corpuscular Hgb Conc 33.5 g/dL (32-36); Mean Platelet Volume 10.1 fL (7.4-10.4); Monocytes % (auto) 8.3 %; Neutrophils # (auto) 6.93 K/uL (1.4-6.5); Neutrophils % (auto) 63.6 %; Platelet Count 251 K/uL (130-400); RDW Coefficient of Variation 13.5 % (11.5-14.5); RDW Standard Deviation 43.5 fL (36.4-46.3); White Blood Count 10.89 K/uL (4.8-10.8)
[2021-01-17 06:50] LABS: Est GFR (Non-African American) 64.7 ml/min; Potassium 3.9 mmol/L (3.5-5.1)
[2021-01-17] MEDS: ASPIRIN 81 MG ECTAB PO SCH (08:15)
[2021-01-17] MEDS: DOXYCYCLINE HYCLATE 100 MG CAP PO SCH ×2 (08:15→20:55)
[2021-01-17] MEDS: busPIRone 7.5 MG TAB PO SCH (08:15)
[2021-01-17] MEDS: LORATADINE 10 MG TAB PO SCH (08:15)
[2021-01-17] MEDS: cloNIDine HCL 0.1 MG TAB PO SCH ×2 (08:15→20:55)
[2021-01-17] MEDS: DONEPEZIL HCL 5 MG TAB PO SCH (08:16)
[2021-01-17] MEDS: SERTRALINE HCL 100 MG TABLET PO SCH (08:16)
[2021-01-17] MEDS: predniSONE 20 MG TAB PO SCH (08:16)
[2021-01-17] MEDS: dilTIAZem HCL 180 MG CAPCR PO SCH (08:16)
[2021-01-17] MEDS: UMECLIDINIUM/VILANTEROL 62.5/25MCG 7 PUFFS/INHALER INH SCH (08:17)
--- NOTE | 2021-01-17 10:41 | Pulmonology Progress Note ---
Date of Service January 17, 2021 Assessment & Plan (1) SOB (shortness of breath): Plan: Impression: 70-year-old female with advanced obstructive lung disease/emphysema admitted with shortness of breath likely multifactorial due to combinations of COPD exacerbation hypertensive urgency. Her shortness of breath is markedly better with improvement of her blood pressure. She continues to exhibit some wheezing with expiration, but is significantly improved today. Recommendations: 1. COPD exacerbation: Agree with prednisone 40 mg a day. Would plan on treating her for 5 days and then discontinue. Continue Anoro. Hold inhaled steroids as she apparently had issues with coughing in the past with this. Nebulizers as needed. Doxycycline for acute exacerbation of COPD for 5 dayspatient reports rash but will follow. If she cannot tolerate this, may be able to just use amoxicillin 2. Hypertensive urgency: Management per primary service. 3. Acute kidney injury: Again management per primary service. 4. Hypoxemic respiratory failure: Secondary to #1. Continue supplemental oxygen titrated to keep oxygen saturations at or above 88%. 5. Recommend the patient be up and ambulatory as much as possible. We will continue to follow with you. When her respiratory status is stable, she may be dismissed from the hospital and follow-up in the patient setting with her established pulmonary provider (2) COPD exacerbation: Admission and Anticipated Discharge Date Admission Date: January 16, 2021 Subjective Patient states she feels her breathing is better. Her shortness of breath is now resolved. She is coughing but not really expectorating phlegm. She does report persistent wheezing. She is able to eat and sleep without difficulty. Her oxygen requirement is decreasing. Review of Systems Review of Systems: Negative except as noted above Physical Exam Constitutional: WD/WN, vitals as above Neck: trachea midline, no thyromegaly Respiratory: normal respiratory effort; no respiratory distress Auscultation: + wheezes; no rales Cardiovascular: RRR, no murmur, no edema Gastrointestinal (Abdomen): normal bowel sounds, soft, nontender, no hepatosplenomegaly Musculoskeletal: Extremities: extremities normal to inspection Skin: no rashes, warm and dry Lymphatic: no cervical lymphadenopathy Results & Data Results & Data ([facility]) Vital Signs (Past 12 Hours) Vital Signs Temp Pulse Pulse Pulse Resp BP Pulse Ox 01/17/21 07:45 62 18 92 01/17/21 07:37 36.8 C 54 L 18 128/64 95 01/17/21 07:00 54 L 01/17/21 03:21 37.0 C 62 18 139/74 94 01/16/21 23:00 72 Laboratory Results 01/17/21 05:28 01/17/21 05:28 Diagnostic Findings No new imaging PG Care Time/CCT Total # of Minutes Spent Total Time Spent with Patient: Total time spent is greater than 50% in coordination of care (as documented) at patient's floor/unit and/or counseling patient: Coding Level of Care Code 45612 Subseq Hosp Care Lvl 2 Diagnoses SOB (shortness of breath) R06.02 COPD exacerbation J44.1
[2021-01-17] MEDS: FUROSEMIDE 20 MG TAB PO SCH ×2 (10:59→18:05)
--- NOTE | 2021-01-17 13:01 | Hospitalist Progress Note ---
Date of Service January 17, 2021 Assessment & Plan (1) COPD exacerbation: Plan: Acute on chronic respiratory failure with hypoxia Chronic oxygen dependency Likely multifactorial secondary to COPD exacerbation, hypertensive urgency -CTA: No evidence of acute pulmonary embolism. Dependent airspace opacities, statistically atelectatic Continue bronchodilators Appreciate pulmonary input Continue inhalers as per Pulm Aspiration precautions Continue supplemental oxygen to keep saturations at or greater than 88% Completed speech therapy eval: Easy to chew, slippery diet Continue doxycycline, Prednisone to finish 5 day course Dysphagia H/O Esophageal dysmotility/cricopharyngeal achalasia as per records, Aspiration precautions Appreciate Speech Therapy eval Continue Slippery diet Hypertensive Crisis Likely worsened from prednisone use Continue clonidine, Cardizem Losartan held secondary to JOSE CRUZ Monitor Acute kidney injury Creatinine 1.38>0.89 Hold losartan for now Avoid nephrotoxic agents as able Monitor renal function Hypothyroidism Continue levothyroxine H/O CAD Continue home meds BERNA H/O CPAP intolerance H/O past tobacco use Breast cancer S/P Chemoradiation/ hormonal treatment intolerance Dementia Mood Disorder As per records Continue home meds DVT Px: Heparin SQ Code Status Full code Disposition Home with Home Health Admission and Anticipated Discharge Date Admission Date: January 16, 2021 Subjective Patient is seen and examined bedside Less Dyspnea, Cough today No new complaints Denies chest pain, dizziness, abd pain, diarrhea Saturating well on 2 L of supplemental oxygen Review of Systems Review of Systems: All systems reviewed & are unremarkable except as noted in Subjective Physical Exam Physical Exam: Physical Exam: Vitals signs as noted above General Appearance:Moderately built and nourished, no apparent distress Head: normocephalic, Atraumatic Eyes: normal inspection, EOMI Neck: supple, Trachea midline Respiratory/Chest: Decreased breath sounds, + Basal crackles Cardiovascular: S1, S2, No murmur Abdomen/GI:Soft, Non tender, Bowel sounds present Extremities/Musculoskeletal:normal inspection, no edema Neurologic/Psych:AAOX3, grossly no focal neurological deficits Skin: normal color, warm Results & Data Results & Data ([facility]) Vital Signs (Past 12 Hours) Vital Signs Temp Pulse Pulse Pulse Resp BP Pulse Ox 01/17/21 11:35 36.5 C 66 18 120/69 91 01/17/21 07:45 62 18 92 01/17/21 07:37 36.8 C 54 L 18 128/64 95 01/17/21 07:00 54 L 01/17/21 03:21 37.0 C 62 18 139/74 94 Laboratory Results Short CBC 01/17/21 Range/Units 05:28 WBC 10.89 H (4.8-10.8) K/uL Hgb 11.8 L (12.0-16.0) g/dL Hct 35.2 L (37-47) % Plt Count 251 (130-400) K/uL BMP 01/17/21 05:28 Sodium 136 Potassium 3.9 Chloride 105 Carbon Dioxide 28 BUN 24 H Creatinine 0.89 D Glucose 92 Calcium 9.0 Urine 01/16/21 Range/Units 17:48 Urine Color Yellow Urine Appearance Clear (Clear) Urine pH 5.5 (4.5-7.5) Ur Specific Bruno 1.022 (1.000-1.030) Urine Protein Negative (Negative) Urine Glucose (UA) Negative (Negative)
[2021-01-17] MEDS: BENZONATATE 100 MG CAPSULE PO PRN (13:27)
[2021-01-17] MEDS: GABAPENTIN 100 MG CAP PO SCH (20:55)
[2021-01-17] MEDS: MONTELUKAST SODIUM 10 MG TABLET PO SCH (20:55)
[2021-01-18] MEDS: HEPARIN SOD 5,000 UNIT/0.5 ML VIAL SQ SCH ×3 (06:09→21:37)
[2021-01-18] MEDS: LEVOTHYROXINE SODIUM 100 MCG TABLET PO SCH (06:09)
[2021-01-18] MEDS: PANTOprazole 40 MG TAB PO SCH (06:09)
[2021-01-18] MEDS: guaiFENesin/CODEINE 100MG/10MG 5ML UDC PO PRN ×3 (06:14→21:37)
[2021-01-18 07:32] LABS: Calcium 9.2 mg/dl (8.5-10.1); Creatinine Clr Calc Pharmacy 71.1 ml/min; Est GFR (African American) 90.8 ml/min; Est GFR (Non-African American) 78.4 ml/min; Potassium 3.8 mmol/L (3.5-5.1)
[2021-01-18] MEDS: IPRATROPIUM BROMIDE NEB SOLN 0.02% 2.5 ML VIAL INH SCH ×3 (07:41→19:20)
[2021-01-18] MEDS: LEVALBUTEROL 1.25MG/0.5ML NEB INH SCH ×3 (07:41→19:20)
[2021-01-18] MEDS: dilTIAZem HCL 180 MG CAPCR PO SCH (08:45)
[2021-01-18] MEDS: BENZONATATE 100 MG CAPSULE PO PRN (08:45)
[2021-01-18] MEDS: cloNIDine HCL 0.1 MG TAB PO SCH ×2 (08:45→21:37)
[2021-01-18] MEDS: DOXYCYCLINE HYCLATE 100 MG CAP PO SCH ×2 (08:45→21:37)
[2021-01-18] MEDS: busPIRone 7.5 MG TAB PO SCH (08:46)
[2021-01-18] MEDS: ASPIRIN 81 MG ECTAB PO SCH (08:46)
[2021-01-18] MEDS: LORATADINE 10 MG TAB PO SCH (08:46)
[2021-01-18] MEDS: FUROSEMIDE 20 MG TAB PO SCH (08:46)
[2021-01-18] MEDS: SERTRALINE HCL 100 MG TABLET PO SCH (08:46)
[2021-01-18] MEDS: UMECLIDINIUM/VILANTEROL 62.5/25MCG 7 PUFFS/INHALER INH SCH (08:47)
[2021-01-18] MEDS: DONEPEZIL HCL 5 MG TAB PO SCH (08:47)
[2021-01-18] MEDS: predniSONE 20 MG TAB PO SCH (08:47)
--- NOTE | 2021-01-18 14:16 | Pulmonology Progress Note ---
Date of Service January 18, 2021 Assessment & Plan (1) SOB (shortness of breath): Plan: Impression: 70-year-old female with advanced obstructive lung disease/emphysema admitted with shortness of breath likely multifactorial due to combinations of COPD exacerbation hypertensive urgency. Her shortness of breath is markedly better with improvement of her blood pressure. She continues to show slow and steady improvement from a respiratory standpoint now feels like her breathing is back to baseline. Recommendations: 1. COPD exacerbation: Complete 5-day burst of prednisone. Continue Anoro. Hold inhaled steroids as she apparently had issues with coughing in the past with this. Nebulizers as needed. Doxycycline for acute exacerbation of COPD for 5 dayspatient, no evidence of rash or any allergic reaction with this medication 2. Hypertensive urgency: Management per primary service. 3. Acute kidney injury: Again management per primary service. 4. Hypoxemic respiratory failure: Secondary to #1. Continue supplemental oxygen titrated to keep oxygen saturations at or above 88%. She is currently at her baseline 5. Recommend the patient be up and ambulatory as much as possible. Patient's respiratory status appears to be back to her baseline. Disposition per primary service. Will sign off from pulmonary standpoint. Feel free to contact us if we can be of additional assistance. She will follow-up with RICARDO Collins in the outpatient clinic for management of her pulmonary issues (2) COPD exacerbation: Admission and Anticipated Discharge Date Admission Date: January 16, 2021 Subjective Patient seen and examined. She is awake alert and conversant. No respiratory distress. She states she is able to ambulate short distances without becoming more winded than baseline. She feels that her breathing is back to her baseline. She is occasionally coughing and producing thin phlegm. She notes mild intermittent wheezing but overall feels that her respiratory status is back to baseline. Review of Systems Review of Systems: Negative except as noted above Physical Exam Constitutional: WD/WN, vitals as above Neck: trachea midline, no thyromegaly Respiratory: normal respiratory effort; no respiratory distress Auscultation: + wheezes; no rales Cardiovascular: RRR, no murmur, no edema Gastrointestinal (Abdomen): normal bowel sounds, soft, nontender, no hepatosplenomegaly Musculoskeletal: Extremities: extremities normal to inspection Skin: no rashes, warm and dry Lymphatic: no cervical lymphadenopathy Results & Data Results & Data ([facility]) Vital Signs (Past 12 Hours) Vital Signs Temp Pulse Pulse Resp BP Pulse Ox Pulse Ox 01/18/21 13:10 56 L 18 96 01/18/21 11:20 36.7 C 54 L 18 91/52 L 95 01/18/21 07:41 86 18 96 01/18/21 07:18 36.4 C L 55 L 18 146/74 H 96 01/18/21 07:15 55 L 01/18/21 05:49 96 01/18/21 03:04 36.6 C 60 18 126/65 96 Laboratory Results 01/17/21 05:28 01/18/21 06:09 Diagnostic Findings No new imaging PG Care Time/CCT Total # of Minutes Spent Total Time Spent with Patient: Total time spent is greater than 50% in coordination of care (as documented) at patient's floor/unit and/or counseling patient: Coding Level of Care Code 18085 Subseq Hosp Care Lvl 2 Diagnoses SOB (shortness of breath) R06.02 COPD exacerbation J44.1
--- NOTE | 2021-01-18 17:19 | Hospitalist Progress Note ---
Date of Service January 18, 2021 Assessment & Plan (1) COPD exacerbation: Plan: Acute on chronic respiratory failure with hypoxia Chronic oxygen dependency Likely multifactorial secondary to COPD exacerbation, hypertensive urgency -CTA: No evidence of acute pulmonary embolism. Dependent airspace opacities, statistically atelectatic Continue bronchodilators Appreciate pulmonary input Continue inhalers as per Pulm Aspiration precautions Continue supplemental oxygen to keep saturations at or greater than 88% Completed speech therapy eval: Easy to chew, slippery diet Continue doxycycline, Prednisone to finish 5 day course Clinically improving Needs follow-up with pulmonology upon discharge Dysphagia H/O Esophageal dysmotility/cricopharyngeal achalasia as per records, Aspiration precautions Appreciate Speech Therapy eval Continue Slippery diet Hypertensive Crisis Likely worsened from prednisone use BP Variable Continue clonidine, Cardizem Losartan held secondary to JOSE CRUZ Monitor Acute kidney injury Creatinine 1.38>0.89 JOSE CRUZ Resolved Hold losartan for now due to relatively low blood pressure as well Avoid nephrotoxic agents as able Monitor renal function Hypothyroidism Continue levothyroxine H/O CAD Continue home meds BERNA H/O CPAP intolerance H/O past tobacco use Breast cancer S/P Chemoradiation/ hormonal treatment intolerance Dementia Mood Disorder As per records Continue home meds DVT Px: Heparin SQ Code Status Full code Disposition Home with Home Health Admission and Anticipated Discharge Date Admission Date: January 16, 2021 Subjective Patient is seen and examined bedside Cough continues to improve Still has scattered wheezing on exam Clinically improving Denies chest pain, dyspnea, dizziness, abd pain, diarrhea Review of Systems Review of Systems: All systems reviewed & are unremarkable except as noted in HPI & below Physical Exam Physical Exam: Physical Exam: Vitals signs as noted above General Appearance:Moderately built and nourished, no apparent distress Head: normocephalic, Atraumatic Eyes: normal inspection, EOMI Neck: supple, Trachea midline Respiratory/Chest: Decreased breath sounds, + scattered wheezing Cardiovascular: S1, S2, No murmur Abdomen/GI:Soft, Non tender, Bowel sounds present Extremities/Musculoskeletal:normal inspection, no edema Neurologic/Psych:AAOX3, grossly no focal neurological deficits Skin: normal color, warm Results & Data Results & Data ([facility]) Vital Signs (Past 12 Hours) Vital Signs Temp Pulse Pulse Resp BP Pulse Ox Pulse Ox 01/18/21 15:57 36.7 C 69 18 98/57 L 96 01/18/21 14:20 58 L 07/18/21 13:10 56 L 18 96 01/18/21 11:20 36.7 C 54 L 18 91/52 L 95 01/18/21 07:41 86 18 96 01/18/21 07:18 36.4 C L 55 L 18 146/74 H 96 01/18/21 07:15 55 L 01/18/21 05:49 96 Laboratory Results BMP 01/18/21 06:09 Sodium 134 L Potassium 3.8 Chloride 103 Carbon Dioxide 29 BUN 24 H Creatinine 0.76 Glucose 88 Calcium 9.2
[2021-01-18] MEDS: GABAPENTIN 100 MG CAP PO SCH (21:37)
[2021-01-18] MEDS: MONTELUKAST SODIUM 10 MG TABLET PO SCH (21:37)
[2021-01-19] MEDS: LEVALBUTEROL 1.25MG/0.5ML NEB INH SCH ×3 (01:45→13:07)
[2021-01-19] MEDS: IPRATROPIUM BROMIDE NEB SOLN 0.02% 2.5 ML VIAL INH SCH ×3 (01:45→13:07)
[2021-01-19] MEDS: LEVOTHYROXINE SODIUM 100 MCG TABLET PO SCH (06:20)
[2021-01-19] MEDS: HEPARIN SOD 5,000 UNIT/0.5 ML VIAL SQ SCH ×2 (06:20→15:06)
[2021-01-19] MEDS: PANTOprazole 40 MG TAB PO SCH (06:20)
[2021-01-19] MEDS: guaiFENesin/CODEINE 100MG/10MG 5ML UDC PO PRN ×2 (06:24→12:56)
[2021-01-19] MEDS: traMADol HCL 50 MG TABLET PO PRN (06:24)
[2021-01-19] MEDS: BENZONATATE 100 MG CAPSULE PO PRN (08:06)
[2021-01-19] MEDS: dilTIAZem HCL 180 MG CAPCR PO SCH (08:06)
[2021-01-19] MEDS: LORATADINE 10 MG TAB PO SCH (08:06)
[2021-01-19] MEDS: predniSONE 20 MG TAB PO SCH (08:07)
[2021-01-19] MEDS: DONEPEZIL HCL 5 MG TAB PO SCH (08:07)
[2021-01-19] MEDS: DOXYCYCLINE HYCLATE 100 MG CAP PO SCH (08:08)
[2021-01-19] MEDS: cloNIDine HCL 0.1 MG TAB PO SCH (08:08)
[2021-01-19] MEDS: busPIRone 7.5 MG TAB PO SCH (08:08)
[2021-01-19] MEDS: SERTRALINE HCL 100 MG TABLET PO SCH (08:08)
[2021-01-19] MEDS: ASPIRIN 81 MG ECTAB PO SCH (08:08)
[2021-01-19] MEDS: UMECLIDINIUM/VILANTEROL 62.5/25MCG 7 PUFFS/INHALER INH SCH (08:09)
[2021-01-19] MEDS ORDERED: FUROSEMIDE 20 MG TAB PO SCH (09:00)
[2021-01-19 09:14] LABS: BUN Creatinine Ratio 21.4 (10-20); Calcium 9.2 mg/dl (8.5-10.1); Creatinine Clr Calc Pharmacy 56.8 ml/min; Est GFR (African American) 69.4 ml/min; Est GFR (Non-African American) 59.8 ml/min
[2021-01-19] MEDS ORDERED: POLYETHYLENE (MIRALAX) 17 GM PACK PO PRN (09:39)
[2021-01-19] MEDS ORDERED: bisacodyL 10 MG SUPP PR PRN (09:39)
[2021-01-19] MEDS ORDERED: DOCUSATE SODIUM 100 MG CAP PO PRN (09:40)
--- NOTE | 2021-01-19 14:01 | Hospitalist Progress Note ---
Date of Service January 19, 2021 Assessment & Plan (1) COPD exacerbation: Plan: Acute on chronic respiratory failure with hypoxia Chronic oxygen dependency Likely multifactorial secondary to COPD exacerbation, hypertensive urgency -CTA: No evidence of acute pulmonary embolism. Dependent airspace opacities, statistically atelectatic Continue bronchodilators Appreciate pulmonary input Continue inhalers as per Pulm Aspiration precautions Continue supplemental oxygen to keep saturations at or greater than 88% Completed speech therapy eval: Easy to chew, slippery diet Continue doxycycline, Prednisone to finish 5 day course : Day 4/5 Needs follow-up with pulmonology upon discharge Respiratory status seemed to be back to baseline Saturating well on 2 L of supplemental oxygen Dysphagia H/O Esophageal dysmotility/cricopharyngeal achalasia as per records, Aspiration precautions Appreciate Speech Therapy eval Continue Slippery diet Constipation Started on bowel regimen Encourage to ambulate Hypertensive Crisis Likely worsened from prednisone use BP Variable Continue clonidine, Cardizem Resume Losartan as able Monitor Acute kidney injury Creatinine 1.38>0.89>0.95 JOSE CRUZ Resolved Hold losartan due to JOSE CRUZ Avoid nephrotoxic agents as able Monitor renal function Hypothyroidism Continue levothyroxine H/O CAD Continue home meds BERNA H/O CPAP intolerance H/O past tobacco use Breast cancer S/P Chemoradiation/ hormonal treatment intolerance Dementia Mood Disorder As per records Continue home meds DVT Px: Heparin SQ Code Status Full code Disposition Home with Home Health Admission and Anticipated Discharge Date Admission Date: January 16, 2021 Subjective Patient is seen and examined bedside States having headache Also reports constipation Respiratory status back to baseline Minimal cough persistent Denies chest pain, dyspnea, dizziness, abd pain Review of Systems Review of Systems: All systems reviewed & are unremarkable except as noted in Subjective Physical Exam Physical Exam: Physical Exam: Vitals signs as noted above General Appearance:Moderately built and nourished, no apparent distress Head: normocephalic, Atraumatic Eyes: normal inspection, EOMI Neck: supple, Trachea midline Respiratory/Chest: Decreased breath sounds, CTA Cardiovascular: S1, S2, No murmur Abdomen/GI:Soft, Non tender, Bowel sounds present Extremities/Musculoskeletal:normal inspection, no edema Neurologic/Psych:AAOX3, grossly no focal neurological deficits Skin: normal color, warm Results & Data Results & Data ([facility]) Vital Signs (Past 12 Hours) Vital Signs Temp Pulse Pulse Resp BP Pulse Ox 01/19/21 13:08 72 18 94 01/19/21 11:46 36.9 C 69 18 155/88 H 91 01/19/21 08:27 36.5 C 62 18 123/63 96 01/19/21 07:58 69 18 97 01/19/21 07:00 70 01/19/21 04:00 36.7 C 58 L 18 130/67 96 Laboratory Results [facility] 01/19/21 08:29 Sodium 136 Potassium 4.0 Chloride 105 Carbon Dioxide 25 BUN 20 H Creatinine 0.95 Glucose 99 Calcium 9.2
--- NOTE | 2021-01-19 14:56 | Discharge Summary ---
Date of Service January 19, 2021 Admission HPI Per Admitting Provider History obtained from patient and records. Medical history significant for chronic respiratory failure secondary to COPD/ILD on home O2, BERNA (CPAP intolerance), CAD as per records, hypertension, hypothyroidism, breast cancer status post surgery/chemoradiation, dementia as per records, hx esophageal dysmotility/cricopharyngeal achalasia as per records, anxiety/mood disorder, dementia as per records, prediabetes as per records, past tobacco abuse. Last confinement December 2019 for COPD exacerbation. Few days history of junky cough symptoms, wheezing, worsening shortness of breath, pleuritic chest pain. Coughing with meals/water intake with occasional choking sensation. Achy headache symptoms which patient attributes to coughing. PCP administered Solu-Medrol IM at patient's home yesterday followed by prednisone course. Augmentin course initiated along with [id number] albuterol neb. Patient consulted ER with worsening symptoms along with elevated SBP of 200s at home. SBP noted to be 180s upon arrival at the ER. Nitropaste along with Solu-Medrol and neb treatment administered at the ER. SBP currently 130s. Medical History as above Surgical History : Bilateral mastectomy, thyroidectomy, cataract surgeries Family History : Leukemia, breast cancer, diabetes, stroke Personal/Social history : Past tobacco abuse, no EtOH intake Admission Exam Per Admitting Provider Physical Exam Physical Exam: GENERAL: Slightly uncomfortable, anxious, no respiratory distress SKIN: Normal color, warm HEENT: [place] palpebral conjunctivae, no ptosis, dry buccal mucosa, nasal cannula in place NECK : Supple, no tenderness CHEST : Decreased breath sounds, expiratory wheezes, no tenderness HEART : RRR, no obvious murmurs ABDOMEN: Some distention, nontender EXTREMITIES : No LE swelling/tenderness, no other conspicuous deformities noted NEUROLOGIC : Coherent, no facial asymmetry, no other gross focality Principal Diagnosis Acute on chronic respiratory failure with hypoxia COPD Exacerbation Hypertensive Crisis Acute kidney injury Discharge Data Allergies Allergy/AdvReac Type Severity Reaction Status Date / Time baclofen Allergy Severe Unknown Verified 01/16/21 01:16 cefuroxime Allergy Severe Hives and Verified 01/16/21 01:16 Dizziness hydralazine Allergy Intermediate joint pain Verified 01/16/21 01:16 tetracycline Allergy Mild RASH Verified 01/16/21 01:16 budesonide AdvReac Severe caused her Verified 01/16/21 01:16 to cough constantly amlodipine AdvReac Mild Edema. Verified 01/16/21 01:16 Consultations 01/16/21 00:44 ED Decision to Admit Stat 01/16/21 05:49 Consult Pulmonology Routine Ordered Studies 01/16/21 00:43 CT angio chest PE protocol Urgent 01/16/21 02:40 CT head/brain wo con Urgent Hospital Course (1) COPD exacerbation: Acute on chronic respiratory failure with hypoxia Chronic oxygen dependency Likely multifactorial secondary to COPD exacerbation, hypertensive urgency -CTA: No evidence of acute pulmonary embolism. Dependent airspace opacities, statistically atelectatic Continue bronchodilators Appreciate pulmonary input Continue inhalers as per Pulm Aspiration precautions Continue supplemental oxygen to keep saturations at or greater than 88% Completed speech therapy eval: Easy to chew, slippery diet Continue doxycycline, Prednisone to finish 5 day course : Day 4/5 Needs follow-up with pulmonology upon discharge Respiratory status seemed to be back to baseline Saturating well on 2 L of supplemental oxygen Dysphagia H/O Esophageal dysmotility/cricopharyngeal achalasia as per records, Aspiration precautions Appreciate Speech Therapy eval Continue Slippery diet Constipation Started on bowel regimen Encourage to ambulate Hypertensive Crisis Likely worsened from prednisone use BP Variable Continue clonidine, Cardizem Resume Losartan as able Monitor Acute kidney injury Creatinine 1.38>0.89>0.95 JOSE CRUZ Resolved Hold losartan due to JOSE CRUZ Avoid nephrotoxic agents as able Monitor renal function Hypothyroidism Continue levothyroxine H/O CAD Continue home meds BERNA H/O CPAP intolerance H/O past tobacco use Breast cancer S/P Chemoradiation/ hormonal treatment intolerance Dementia Mood Disorder As per records Continue home meds DVT Px: Heparin SQ Code Status Full code Disposition Home with Home Health Total Time Total Time Spent Total Time Spent (In Minutes): 43 minutes Discharge Plan Discharge Items Patient Disposition: Home - Home Health Services Reason For Visit: HTN CRISIS, ILD EXACERBATION Discharge Diagnosis: Acute on chronic respiratory failure with hypoxia COPD Exacerbation Hypertensive Crisis Acute kidney injury Activity: Per Instructions section Exercise/Sports: Gradually increase as tolerated Non-emergency contact: Primary Care Provider and Orthotic Aide Call non-emergency contact if: you have any medication questions, your symptoms worsen, your pain is concerning for you and you have a fever Follow-up/Referrals: Cristina Vizcarra MD [Primary Care Provider] - (Date & Time 01/23/2021 10:00 AM Provider Cristina Vizcarra MD Department General Internal Medicine [facility] ) Diet: Heart Healthy Addtl Attending Provider Instructions: Follow-up with your primary care physician on 01/23/2021 10:00 AM Follow up with your Orthotic Aide in 2-3 weeks Complete the prednisone and antibiotic course for 1 more day and stop as recommended by your Orthotic Aide Seek immediate medical attention if your symptoms reoccur or worsen Please take all medications as instructed on discharge list below. Please call if you have any questions or problems. You can reach a [facility] hospitalist on duty at [facility] 24 hours a day by calling [phone] Pending Studies at Discharge: No Stand-Alone Forms: [facility], Smoking Cessation Medications and DC Order Prescriptions: New Anoro Ellipta 62.5-25 mcg/actuation Blister With Device 1 inh inhalation DAILY Qty: 60 RF: 1 doxycycline hyclate 100 mg Capsule 100 mg PO BID Qty: 3 RF: 0 docusate sodium 100 mg Capsule 100 mg PO BID PRN (Reason: constipation ) Qty: 30 RF: 0 polyethylene glycol 3350 [Miralax] 17 gram Powder In Packet 17 g PO DAILY PRN (Reason: constipation) Qty: 30 RF: 0 Continued (DME) CPAP Machine Misc See Rx Instructions .ROUTE .MEDSUPPLY Qty: 1 RF: 0 sertraline [Zoloft] 100 mg tablet 100 mg PO QAM Qty: 30 RF: 3 donepezil [Aricept] 5 mg tablet 5 mg PO DAILY Qty: 30 RF: 5 (DME) Portable Oxygen Misc See Rx Instructions .MEDSUPPLY Qty: 1 RF: 0 prednisone 10 mg tablet See Rx Instructions PO DAILY Qty: 36 RF: 0 (DME) Vortex Holding Chamber spacer See Dose Instructions .ROUTE .MEDSUPPLY Qty: 1 RF: 0 aspirin [Lo-Dose Aspirin] 81 mg tablet,delayed release (DR/EC) 81 mg PO QAM Qty: 30 RF: 0 guaifenesin [Mucinex] 600 mg tablet extended release 12hr 600 mg PO BID PRN (Reason: cough and congestion) Qty: 60 RF: 2 codeine-guaifenesin 10-100 mg/5 mL liquid 5 ml PO Q6H PRN (Reason: cough) Qty: 236 RF: 0 clonidine HCl 0.1 mg tablet 0.1 mg PO BID@0800,2000 RF: 0 albuterol sulfate [Ventolin HFA] 90 mcg/actuation HFA aerosol inhaler 2 puff INH Q4H PRN (Reason: Wheezing) Qty: 18 RF: 2 ipratropium-albuterol 0.5 mg-3 mg(2.5 mg base)/3 mL solution for nebulization 3 ml INH Q8H PRN (Reason: shortness of breath or wheezing) Qty: 180 RF: 2 diltiazem HCl [Cartia XT] 180 mg Capsule,Extended Release 24hr 180 mg PO QAM RF: 0 montelukast 10 mg tablet 10 mg PO HS RF: 0 furosemide [Lasix] 20 mg tablet 20 mg PO BID RF: 0 levothyroxine 100 mcg Tablet 100 mcg PO QAM RF: 0 pantoprazole [Protonix] 40 mg tablet,delayed release (DR/EC) 40 mg PO DAILYBB RF: 0 loratadine [Claritin] 10 mg Tablet 10 mg PO QAM RF: 0 buspirone 15 mg tablet 15 mg PO HS RF: 0 losartan [Cozaar] 100 mg tablet 100 mg PO QAM RF: 0 buspirone 15 mg tablet 7.5 mg PO QAM RF: 0 gabapentin 100 mg capsule 100 mg PO HS RF: 0 Discontinued amoxicillin-pot clavulanate [Augmentin] 875-125 mg tablet 1 tab PO Q12H Qty: 20 RF: 0 Discharge Orders: Discharge Order (Routine); Ordered 01/19/21 Ordered By: Erlin Alvarado Admission Data Admit Date/Time: 01/16/21 04:43 Attending Provider: Erlin Alvarado Admit Provider: Jase Cornell Primary Care Provider: Cristina Vizcarra Other Providers: Jase Cornell ; Sixto Waggoner ; Migel Collins ; Edi Dillard ; Roe Gamez ; Koko Tapia ; Heaven Ly ; [facility] Other Interventions: Discharge Summary Assessment (RN) Last Done: 01/19/21 15:07
== END 2021-01-19 15:34 | disposition home health service (06) | DRG 190 ==
LOC: ED 21:34 → 2W 01-16 04:43

== ENCOUNTER 2021-04-16 12:06 | Inpatient (IN) ==
[2021-04-16] MEDS ORDERED: dexAMETHasone**PF** 10 MG/ML VIAL IV ONE (12:59)
[2021-04-16] MEDS ORDERED: SODIUM CHLORIDE 0.9% 1000ML 1,000 ML IV ONE (12:59)
[2021-04-16] MEDS ORDERED: ALBUT/IPRATROP 3MG/0.5MG NEB 3 ML VIAL NEB ONE (12:59)
[2021-04-16 13:05] LABS: Basophils # (auto) 0.03 K/uL (0-0.2); Basophils % (auto) 0.3 %; Eosinophils # (auto) 0.07 K/uL (0-0.5); Eosinophils % (auto) 0.6 %; Hemoglobin 12.5 g/dL (12.0-16.0); Immature Granulocytes # (auto) 0.05 K/uL (0.00-0.02); Immature Granulocytes % (auto) 0.4 %; Lymphocytes # (auto) 2.63 K/uL (1.2-3.4); Lymphocytes % (auto) 23.2 %; Mean Corpuscular Hemoglobin 29.3 pg (25-34); Mean Corpuscular Hgb Conc 34.7 g/dL (32-36); Mean Corpuscular Volume 84.3 fL (80-100); Mean Platelet Volume 9.4 fL (7.4-10.4); Monocytes # (auto) 0.95 K/uL (0.11-0.59); Monocytes % (auto) 8.4 %; Neutrophils # (auto) 7.62 K/uL (1.4-6.5); Neutrophils % (auto) 67.1 %; Platelet Count 373 K/uL (130-400); RDW Coefficient of Variation 14.9 % (11.5-14.5); RDW Standard Deviation 45.8 fL (36.4-46.3); Red Blood Count 4.27 M/uL (4.2-5.4); White Blood Count 11.35 K/uL (4.8-10.8)
--- NOTE | 2021-04-16 13:05 | Emergency Department Note ---
Impression & Plan COPD exacerbation, Hypoxia ED Provider Note Name: GEMMA RODRÍGUEZ Age: 70 Sex: F Arrives Via: Ambulance Informant: Patient ED Provider: Patricio Bright MD Chief Complaint: Shortness of breath Impression: As Per Impressions Above Medical Decision Makin yr old female with extensive PMH of copd who is on 2L NC arrives from Clinic referred to by PCP for evaluation of hypoxia with ambulation to 70s despite increasing NC to 4 L NC. She is quite comfortable at rest but notes PCP advised CT PE study. Given nebs, steroids, and imaging obtained. No clear findings of PE on CTA. Given severity of symptoms and failure of 5 days levaquin/steroids to improve situation, hospitalist consulted for further management. Will hold on abx given already on abx,though I will note, blood cultures were obtained as she is febrile on arrival, though is not septic at this time. Prior Medical Record and Triage/Nursing Notes reviewed by Me Additional history obtained from chart Differentials:Reactive airway disease, pneumonia, pneumothorax, COPD, CHF, infections, cardiac ischemia, pulmonary embolism, musculoskeletal, gastroin testinal, as well as other pathologies. Vital Signs: reviewed and remarkable for fever Interventions: saline lock, decadron iv, duoneb, nss bolus Labs:Reviewed and remarkable for no significant abnormalities Imaging:See Below EKG:Per My Interpretation: Indication SHOB: NSR 72 bpm, qtc 424, V 3 T wave flattening. No Ectopy. No Ischemia. Compared to EKG 01/20/21 T wave flattening and inversions in V1/V2 are new, however lead placement may cause given other leads essentially unchanged. Consults:Dr Heidi Cartwright Hospitalist Plan: Disposition:Hospitalization. Condition: Good History of Present Illness:70 yr old female arrives for evaluation of shortness of breath. Patient with 2 weeks of worsening cough, congestion and shortness of breath. Worsens with exertion, better with rest. O2 sats dropping on her typical 2L and thus increased to 4L. Sats drop to 70s this morning with any exertion. Seen at PCP who sent her to ED for evaluation and CT PE study. Patient notes chills and fatigue. Using nebs, steroids and levaquin (5 days) without improvement. No syncope, chest pain, headache, neck pain, rashes, abdominal pain, back pain, nausea, vomiting, urinary/bowel symptoms, leg swe lling, calf pain, nor other symptoms. Denies sick contacts. Flu, RSV, Covid negative on 04/09/21 per patient. ROS: See above HPI for pertinent positives & negatives. A total of 10 systems reviewed and were otherwise negative. Past Medical History:See Below Past Surgical History:See Below Family History:See Below Social History:See Below Home Medications:See Below Allergies:See Below Vitals:Blood Pressure: 135/67, Pulse 79, RR 18, T 38.1C, O2 97% on 4L NC Physical Exam: GENERAL: Patient is unwell appearing and in mild distress. EYES: No scleral icterus, unremarkable pupils. ENT: Mucous membranes moist, no nasal congestion. NECK: No masses appreciated, nomeningismus, trachea is midline. RESPIRATORY: Tachypnea, dyspnea with diffuse wheezing CARDIOVASCULAR: Regular rate and rhythm.No murmurs, rubs, gallops appreciated. GASTROINTESTINAL: Abdomen soft, non-tender, no peritonitis.Bowel sounds positive.No masses appreciated. BACK: No midline tenderness, no CVA tenderness EXTREMITIES: Normal motion all extremities, no cyanosis, no edema. NEUROLOGIC: Alert and oriented, no acute motor or sensory deficits, no focal weakness, cranial nerves grossly intact. SKIN: No rash, no jaundice, no diaphoresis. PSYCH: Appropriate GCS: 15 ED Course: Times/Reassessments: Stable, breathing comfortably, agreeable to hospitalization Patricio Bright MD Past Med/Surg History Medical History (Updated 04/17/21 @ 12:09 by Patricio Bright MD) Anxiety and depression Axillary lymphadenopathy Chronic back pain Chronic respiratory failure with hypoxia CKD (chronic kidney disease), stage III stage 3. follows with pcp. COPD (chronic obstructive pulmonary disease) Degenerative disc disease GERD (gastroesophageal reflux disease) History of breast cancer bilateral HTN (hypertension) Hx of duodenal ulcer Hyperlipidemia Hypothyroidism ILD (interstitial lung disease) Mild cognitive impairment On home oxygen therapy 2lpm via n/c continuous BERNA (obstructive sleep apnea) cpap Osteoarthritis Prediabetes Pulmonary fibrosis Restless legs syndrome hx SCC (squamous cell carcinoma) face Surgical History History of bilateral tubal ligation History of bronchoscopy History of cardiac cath no stents. (~1979) History of colonoscopy History of esophagogastroduodenoscopy (EGD) History of lung surgery thorascopy for lung biopsy S/P mastectomy, bilateral lymph node removal Left arm S/P thyroidectomy partial (r/t nodule) Family History Sister Myocardial infarction Sister Stroke Other No family history of adverse response to anesthesia Social History (Updated 04/16/21 @ 15:29 by Beverly Gudino PA-C) Smoking Status: Former smoker Tobacco Type: Cigarettes Cigarettes Per Day: 50 pack yr hx; Number of Years Since Quit: 9; Second Hand Exposure: No; Hx Alcohol Use: No Hx Substance Use: No Preferred Language: Bolivian Communication Ability: Effective 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 Beliefs That Will Affect Care: None marital status: Current Living Situation: Alone Current Living Situation Comment: [facility] apartment [facility] How many Children do You have: 2 Other Information That Helps Us Care for You: No Feels Safe at Home: Yes Safety Concerns: Feels Safe At This Time Assistive Devices: Oxygen - Continuous and Walker Assistive Devices Comment: has not been using cpap-broken Allergies Allergies Allergy/AdvReac Type Severity Reaction Status Date / Time baclofen Allergy Severe Unknown Verified 03/17/21 14:05 cefuroxime Allergy Severe Hives and Verified 03/17/21 14:05 Dizziness hydralazine Allergy Intermediate joint pain Verified 03/17/21 14:05 tetracycline Allergy Mild RASH Verified 03/17/21 14:05 budesonide AdvReac Severe caused her Verified 03/17/21 14:05 to cough constantly amlodipine AdvReac Mild Edema. Verified 03/17/21 14:05 Home Meds Home Medications Medication Instructions Recorded Confirmed aspirin 81 mg tablet,delayed 81 mg PO QAM #30 tab 03/09/19 04/16/21 release (Lo-Dose Aspirin) buspirone 15 mg tablet 15 mg PO HS 07/29/19 04/16/21 loratadine 10 mg tablet (Claritin) 10 mg PO QAM 07/29/19 04/16/21 losartan 100 mg tablet (Cozaar) 100 mg PO QAM 07/29/19 04/16/21 pantoprazole 40 mg tablet,delayed 40 mg PO DAILYBB 07/29/19 04/16/21 release (Protonix) diltiazem HCl 180 mg 180 mg PO QAM 08/12/19 04/16/21 capsule,extended release 24 hr (Cartia XT) montelukast 10 mg tablet 10 mg PO HS 12/06/19 04/16/21 furosemide 20 mg tablet (Lasix) 20 mg PO DAILY 12/07/19 04/16/21 levothyroxine 100 mcg tablet 100 mcg PO QAM 01/23/20 04/16/21 clonidine HCl 0.1 mg tablet 0.1 mg PO BID@0800,2000 PRN tab 05/13/20 04/16/21 buspirone 15 mg tablet 7.5 mg PO QAM 01/16/21 04/16/21 gabapentin 100 mg capsule 100 mg PO HS 01/16/21 04/16/21 donepezil 5 mg tablet (Aricept) 5 mg PO QAM 01/20/21 04/16/21 azelastine 137 mcg (0.1 %) nasal 1 spray INTRANASAL BID 04/16/21 04/16/21 spray aerosol docusate sodium 100 mg capsule 100 mg PO BID 04/16/21 04/16/21 prednisone 10 mg tablet See Rx Instructions PO DAILY PRN 04/16/21 04/16/21 Previous Rx's Medication Instructions Recorded CPAP Machine #1 ea 08/06/19 sertraline 100 mg tablet (Zoloft) 100 mg PO QAM #30 tab 10/15/19 guaifenesin 600 mg tablet, 600 mg PO BID PRN #60 tab 01/09/20 extended release 12 hr (Mucinex) Portable Oxygen #1 ea 04/04/20 polyethylene glycol 3350 17 gram 17 g PO DAILY PRN #30 ea 01/19/21 oral powder packet (Miralax) albuterol sulfate 90 mcg/actuation 2 puff INH Q4H PRN #18 gm 03/17/21 aerosol inhaler (Ventolin HFA) ipratropium 0.5 mg-albuterol 3 mg 3 ml INH Q8H PRN #270 ml 03/17/21 (2.5 mg base)/3 mL nebulization soln umeclidinium 62.5 mcg-vilanterol 1 inh INHALATION DAILY #60 ea 03/17/21 25 mcg/actuation powdr for inhalation (Anoro Ellipta) Results & Data (ED) Vital Signs Vital Signs - 24 hr 04/16/21 12:06 04/16/21 12:49 04/16/21 13:30 Temperature 38.1 C H Temperature Source Oral Pulse Rate 79 79 70 Pulse Rate [Finger] Pulse Rate from SpO2 Sensor 68 Pulse Rhythm Regular Respiratory Rate 18 18 20 Respiratory Effort / Characteristics Non-Labored Non-Labored Respiratory Depth Normal Respiratory Pattern Regular Blood Pressure 135/67 120/72 Blood Pressure Mean 89 88 Pulse Oximetry 97 97 99 Oxygen Delivery Method Nasal Cannula Nasal Cannula Nasal Cannula Oxygen Flow Rate 4 4 3 Sepsis Recent Fever Within 48 Hours No Sepsis New/Unexplained Change in Mental Status No Sepsis Action Taken by Nursing No Action Required 04/16/21 14:06 04/16/21 14:30 04/16/21 14:34 Temperature Temperature Source Pulse Rate 76 70 Pulse Rate [Finger] 72 Pulse Rate from SpO2 Sensor 78 70 Pulse Rhythm Respiratory Rate 24 22 20 Respiratory Effort / Characteristics Non-Labored Spontaneous Respiratory Depth Respiratory Pattern Blood Pressure 131/77 124/65 Blood Pressure Mean 95 84 Pulse Oximetry 96 97 96 Oxygen Delivery Method Nasal Cannula Nasal Cannula Oxygen Flow Rate 3 3 Sepsis Recent Fever Within 48 Hours Sepsis New/Unexplained Change in Mental Status Sepsis Action Taken by Nursing Laboratory Data Result diagrams: 04/17/21 05:42 04/17/21 05:42 Lab Results 04/16/21 04/16/21 04/16/21 Range/Units 12:25 12:25 12:25 WBC 11.35 H (4.8-10.8) K/uL RBC 4.27 (4.2-5.4) M/uL Hgb 12.5 (12.0-16.0) g/dL Hct 36.0 L (37-47) % MCV 84.3 (80-100) fL MCH 29.3 (25-34) pg MCHC 34.7 (32-36) g/dL RDW Std Deviation 45.8 (36.4-46.3) fL RDW Coeff of Karel 14.9 H (11.5-14.5) % Plt Count 373 (130-400) K/uL MPV 9.4 (7.4-10.4) fL Immature Gran % (Auto) 0.4 % Neut % (Auto) 67.1 % Lymph % (Auto) 23.2 % Jay % (Auto) 8.4 % Eos % (Auto) 0.6 % Baso % (Auto) 0.3 % Neut # (Auto) 7.62 H (1.4-6.5) K/uL Lymph # (Auto) 2.63 (1.2-3.4) K/uL Jay # (Auto) 0.95 H (0.11-0.59) K/uL Eos # (Auto) 0.07 (0-0.5) K/uL Baso # (Auto) 0.03 (0-0.2) K/uL Immature Gran # (Auto) 0.05 H (0.00-0.02) K/uL PT 10.1 (9.0-12.0) Seconds INR 1.0 (0.9-1.1) APTT 28.1 (21.0-31.0) Seconds PTT Ratio 1.1 Sodium 138 (136-145) mmol/L Potassium 3.4 L (3.5-5.1) mmol/L Chloride 104 (98-107) mmol/L Carbon Dioxide 27 (21-32) mmol/L Anion Gap 7.0 (3-11) BUN 13 (7-18) mg/dl Creatinine 0.92 (0.6-1.2) mg/dl Est Cr Clr Drug Dosing 59.8 ml/min Est GFR ( Amer) 72.1 ml/min Est GFR (Non-Af Amer) 62.2 ml/min BUN/Creatinine Ratio 13.7 (10-20) Glucose 101 H (70-99) mg/dl Lactate (0.4-2.0) mmol/L Calcium 10.0 (8.5-10.1) mg/dl Magnesium 2.2 (1.8-2.4) mg/dl Total Bilirubin 0.4 (0.2-1) mg/dl AST 24 (15-37) U/L ALT 30 (12-78) U/L Alkaline Phosphatase 98 (45-117) U/L Troponin I < 0.015 (0-0.045) ng/ml Total Protein 7.3 (6.4-8.2) gm/dl Albumin 3.5 (3.4-5.0) gm/dl Globulin 3.8 (2.5-4.0) gm/dl Albumin/Globulin Ratio 0.9 (0.9-2) Procalcitonin (0-0.5) ng/ml COVID-19 Eval Order SARS-CoV-2 (PCR) (Negative) 04/16/21 04/16/21 04/16/21 Range/Units 12:25 13:29 13:29 WBC (4.8-10.8) K/uL RBC (4.2-5.4) M/uL Hgb (12.0-16.0) g/dL Hct (37-47) % MCV (80-100) fL MCH (25-34) pg MCHC (32-36) g/dL RDW Std Deviation (36.4-46.3) fL RDW Coeff of Kaerl (11.5-14.5) % Plt Count (130-400) K/uL MPV (7.4-10.4) fL Immature Gran % (Auto) % Neut % (Auto) % Lymph % (Auto) % Jay % (Auto) % Eos % (Auto) % Baso % (Auto) % Neut # (Auto) (1.4-6.5) K/uL Lymph # (Auto) (1.2-3.4) K/uL Jay # (Auto) (0.11-0.59) K/uL Eos # (Auto) (0-0.5) K/uL Baso # (Auto) (0-0.2) K/uL Immature Gran # (Auto) (0.00-0.02) K/uL PT (9.0-12.0) Seconds INR (0.9-1.1) APTT (21.0-31.0) Seconds PTT Ratio Sodium (136-145) mmol/L Potassium (3.5-5.1) mmol/L Chloride (98-107) mmol/L Carbon Dioxide (21-32) mmol/L Anion Gap (3-11) BUN (7-18) mg/dl Creatinine (0.6-1.2) mg/dl Est Cr Clr Drug Dosing ml/min Est GFR ( Amer) ml/min Est GFR (Non-Af Amer) ml/min BUN/Creatinine Ratio (10-20) Glucose (70-99) mg/dl Lactate 1.8 (0.4-2.0) mmol/L Calcium (8.5-10.1) mg/dl Magnesium (1.8-2.4) mg/dl Total Bilirubin (0.2-1) mg/dl AST (15-37) U/L ALT (12-78) U/L Alkaline Phosphatase (45-117) U/L Troponin I (0-0.045) ng/ml Total Protein (6.4-8.2) gm/dl Albumin (3.4-5.0) gm/dl Globulin (2.5-4.0) gm/dl Albumin/Globulin Ratio (0.9-2) Procalcitonin < 0.05 (0-0.5) ng/ml COVID-19 Eval Order Covid19 at [facility] SARS-CoV-2 (PCR) (Negative) 04/16/21 Range/Units 13:29 WBC (4.8-10.8) K/uL RBC (4.2-5.4) M/uL Hgb (12.0-16.0) g/dL Hct (37-47) % MCV (80-100) fL MCH (25-34) pg MCHC (32-36) g/dL RDW Std Deviation (36.4-46.3) fL RDW Coeff of Karel (11.5-14.5) % Plt Count (130-400) K/uL MPV (7.4-10.4) fL Immature Gran % (Auto) % Neut % (Auto) % Lymph % (Auto) % Jay % (Auto) % Eos % (Auto) % Baso % (Auto) % Neut # (Auto) (1.4-6.5) K/uL Lymph # (Auto) (1.2-3.4) K/uL Jay # (Auto) (0.11-0.59) K/uL Eos # (Auto) (0-0.5) K/uL Baso # (Auto) (0-0.2) K/uL Immature Gran # (Auto) (0.00-0.02) K/uL PT (9.0-12.0) Seconds INR (0.9-1.1) APTT (21.0-31.0) Seconds PTT Ratio Sodium (136-145) mmol/L Potassium (3.5-5.1) mmol/L Chloride (98-107) mmol/L Carbon Dioxide (21-32) mmol/L Anion Gap (3-11) BUN (7-18) mg/dl Creatinine (0.6-1.2) mg/dl Est Cr Clr Drug Dosing ml/min Est GFR ( Amer) ml/min Est GFR (Non-Af Amer) ml/min BUN/Creatinine Ratio (10-20) Glucose (70-99) mg/dl Lactate (0.4-2.0) mmol/L Calcium (8.5-10.1) mg/dl Magnesium (1.8-2.4) mg/dl Total Bilirubin (0.2-1) mg/dl AST (15-37) U/L ALT (12-78) U/L Alkaline Phosphatase (45-117) U/L Troponin I (0-0.045) ng/ml Total Protein (6.4-8.2) gm/dl Albumin (3.4-5.0) gm/dl Globulin (2.5-4.0) gm/dl Albumin/Globulin Ratio (0.9-2) Procalcitonin (0-0.5) ng/ml COVID-19 Eval Order SARS-CoV-2 (PCR) NEGATIVE (Negative) Administered Medications Acetaminophen (Acetaminophen 325 Mg Tab) 650 mg PO Q4H PRN PRN Reason: Pain or Fever Stop: 05/16/21 16:43 Last Admin: 04/17/21 08:34 Dose: 650 mg Documented by: [id number] Albuterol (Albut/Ipratrop 3mg/0.5mg Neb 3 Ml Vial) 3 ml NEB QIDR [facility] Stop: 05/16/21 18:59 Last Admin: 04/17/21 11:21 Dose: 3 ml Documented by: [id number] Admin: 04/17/21 07:20 Dose: 3 ml Documented by: [id number] Admin: 04/16/21 19:22 Dose: 3 ml Documented by: [id number] Aspirin (Aspirin 81 Mg Ectab) 81 mg PO QAM [facility] Stop: 05/17/21 08:59 Last Admin: 04/17/21 08:26 Dose: 81 mg Documented by: [id number] Azelastine HCl (Azelastine Hcl 0.1% Nasal 200 Sprays/27,400 Mcg Btl) 1 sprays NA BID [facility] Stop: 05/16/21 20:59 Last Admin: 04/17/21 08:27 Dose: 1 sprays Documented by: [id number] Admin: 04/16/21 20:33 Dose: 1 sprays Documented by: [id number] Benzonatate (Benzonatate 100 Mg Capsule) 100 mg PO TID [facility] Stop: 05/16/21 20:59 Last Admin: 04/17/21 08:26 Dose: 100 mg Documented by: [id number] Admin: 04/16/21 20:33 Dose: 100 mg Documented by: [id number] Buspirone HCl (Buspirone 15 Mg Tab) 15 mg PO HS [facility] Stop: 05/16/21 20:59 Last Admin: 04/16/21 20:33 Dose: 15 mg Documented by: [id number] Buspirone HCl (Buspirone 7.5 Mg Tab) 7.5 mg PO QAM [facility] Stop: 05/17/21 08:59 Last Admin: 04/17/21 08:26 Dose: 7.5 mg Documented by: [id number] Diltiazem HCl (Diltiazem Hcl 180 Mg Capcr) 180 mg PO QAM [facility] Stop: 05/17/21 08:59 Last Admin: 04/17/21 08:26 Dose: 180 mg Documented by: [id number] Docusate Sodium (Docusate Sodium 100 Mg Cap) 100 mg PO BID [facility] Stop: 05/16/21 20:59 Last Admin: 04/17/21 08:26 Dose: 100 mg Documented by: [id number] Admin: 04/16/21 20:33 Dose: 100 mg Documented by: [id number] Donepezil HCl (Donepezil Hcl 5 Mg Tab) 5 mg PO QAM [facility] Stop: 05/17/21 08:59 Last Admin: 04/17/21 08:26 Dose: 5 mg Documented by: [id number] Enoxaparin Sodium (Enoxaparin Inj 40 Mg/0.4 Ml Syr) 40 mg SQ Q24H [facility] Stop: 05/16/21 21:59 Last Admin: 04/16/21 20:31 Dose: 40 mg Documented by: [id number] Furosemide (Furosemide 20 Mg Tab) 20 mg PO DAILY [facility] Stop: 05/17/21 08:59 Last Admin: 04/17/21 08:26 Dose: 20 mg Documented by: [id number] Gabapentin (Gabapentin 100 Mg Cap) 100 mg PO HS [facility] Stop: 05/16/21 20:59 Last Admin: 04/16/21 20:33 Dose: 100 mg Documented by: [id number] Guaifenesin (Guaifenesin 600 Mg Tabcr) 600 mg PO Q12 [facility] Stop: 05/16/21 18:19 Last Admin: 04/17/21 08:27 Dose: 600 mg Documented by: [id number] Admin: 04/16/21 18:27 Dose: 600 mg Documented by: [id number] Hydrocodone Bit/Homatropine Methylb (Hydrocodone/Homatropine Syrup 5mg/1.5mg 5ml Udp) 5 ml PO Q6H PRN PRN Reason: Cough Stop: 04/30/21 20:48 Last Admin: 04/17/21 05:37 Dose: 5 ml Documented by: [id number] Admin: 04/16/21 21:20 Dose: 5 ml Documented by: [id number] Methylprednisolone 40 mg/ (Syringe) 0.64 mls @ 1.5 mls/min IV Q8H [facility] Stop: 05/17/21 07:59 Last Admin: 04/17/21 08:26 Dose: 1.5 mls/min Documented by: [id number] Levothyroxine Sodium (Levothyroxine Sodium 100 Mcg Tablet) 100 mcg PO DAILYBB [facility] Stop: 05/17/21 06:29 Last Admin: 04/17/21 05:37 Dose: 100 mcg Documented by: [id number] Loratadine (Loratadine 10 Mg Tab) [facility] [place]: 05/17/21 08:59 Last Admin: 04/17/21 08:26 Dose: 10 mg Documented by: [id number] Losartan Potassium (Losartan Potassium 50 Mg Tab) 100 mg PO QAM [facility] Stop: 05/17/21 08:59 Last Admin: 04/17/21 08:26 Dose: 100 mg Documented by: [id number] Montelukast Sodium (Montelukast Sodium 10 Mg Tablet) 10 mg PO HS [facility] Stop: 05/16/21 20:59 Last Admin: 04/16/21 20:33 Dose: 10 mg Documented by: [id number] Pantoprazole Sodium (Pantoprazole 40 Mg Tab) 40 mg PO DAILYBB [facility] Stop: 05/17/21 06:29 Last Admin: 04/17/21 05:38 Dose: 40 mg Documented by: [id number] Sertraline HCl (Sertraline Hcl 100 Mg Tablet) 100 mg PO QA [facility] Stop: 05/17/21 08:59 Last Admin: 04/17/21 08:26 Dose: 100 mg Documented by: [id number] Umeclidinium/Vilanterol (Umeclidinium/Vilanterol 62.5/25mcg 7 Puffs/Inhaler) 1 puffs INH DAILY [facility] Stop: 05/17/21 08:59 Last Admin: 04/17/21 08:27 Dose: 1 puffs Documented by: [id number] Discontinued Medications Albuterol (Albut/Ipratrop 3mg/0.5mg Neb 3 Ml Vial) 12 ml NEB ONE ONE Stop: 04/16/21 13:00 Last Admin: 04/16/21 14:32 Dose: 12 ml Documented by: [id number] Dexamethasone Sodium Phosphate (DexamethasonePf 10 Mg/Ml Vial) 10 mg IV NOW ONE Stop: 04/16/21 13:00 Last Admin: 04/16/21 13:35 Dose: 10 mg Documented by: [id number] Sodium Chloride (Nss 1000ml) 1,000 mls @ 999 mls/hr IV .Q1H1M ONE Stop: 04/16/21 13:59 Last Infusion: 04/16/21 14:41 Dose: 0 mls/hr Documented by: [id number] Admin: 04/16/21 13:34 Dose: 999 mls/hr Documented by: [id number] Ioversol (Optiray 320 125ml) 120 ml IV ONCE ONE Stop: 04/16/21 14:20 Last Admin: 04/16/21 14:20 Dose: 120 ml Documented by: [id number] Potassium Chloride (Potassium Chloride Crtab 20 Meq Tabcr) 40 meq PO NOW STA Stop: 04/16/21 14:54 Last Admin: 04/16/21 15:35 Dose: 40 meq Documented by: [id number] Discharge Plan Visit Data Chief Complaint: Shortness of Breath/Dyspnea Stated Complaint: SOB, ED Provider: Patricio Bright Discharge Problem: COPD exacerbation, Hypoxia Patient Disposition: Admitted As Inpatient Discharge Instructions Interventions: ED Discharge Assessment Last Done: 04/16/21 16:30
[2021-04-16 13:18] LABS: Alanine Aminotransferase 30 U/L (12-78); Albumin Level 3.5 gm/dl (3.4-5.0); Aspartate Aminotransferase 24 U/L (15-37); BUN Creatinine Ratio 13.7 (10-20); Blood Urea Nitrogen 13 mg/dl (7-18); Carbon Dioxide 27 mmol/L (21-32); Chloride 104 mmol/L (98-107); Creatinine Clr Calc Pharmacy 59.8 ml/min; Est GFR (African American) 72.1 ml/min; Est GFR (Non-African American) 62.2 ml/min; Glucose 101 mg/dl (70-99); Magnesium 2.2 mg/dl (1.8-2.4); Potassium 3.4 mmol/L (3.5-5.1); Sodium 138 mmol/L (136-145)
[2021-04-16 13:22] LABS: Albumin Globulin Ratio 0.9 (0.9-2); Alkaline Phosphatase 98 U/L (45-117); Bilirubin,Total 0.4 mg/dl (0.2-1); Globulin 3.8 gm/dl (2.5-4.0); Total Protein 7.3 gm/dl (6.4-8.2); Troponin I < 0.015 ng/ml (0-0.045)
[2021-04-16 13:31] LABS: Partial Thromboplastin Ratio 1.1; Partial Thromboplastin Time 28.1 Seconds (21.0-31.0); Prothrombin Time 10.1 Seconds (9.0-12.0)
--- NOTE | 2021-04-16 14:11 | XRay Report ---
XR chest 1V portable HISTORY: 70 years-old Female SOB acute cough with shortness of breath COMPARISON: Chest radiograph 01/20/2021 TECHNIQUE: Portable AP view of the chest FINDINGS: The cardiac silhouette is enlarged. Emphysema with chronic interstitial coarsening. Mild left hemidia phragmatic elevation redemonstrated. No pneumothorax, pleural effusion or overt pulmonary edema. Dege nerative changes of the shoulders and spine. IMPRESSION: 1. Cardiomegaly without overt pulmonary edema. 2. Emphysema with chronic interstitial coarsening. ACT 112: Negative or not required by law. The above report was generated using voice recognition software. It may contain grammatical, syntax o r spelling errors. Electronically signed by: Derrek Olivares M.D. 04/16/2021 2:09 PM
[2021-04-16] MEDS ORDERED: OPTIRAY 320 125ml IV ONE (14:19)
[2021-04-16] MEDS ORDERED: POTASSIUM CHLORIDE CRTAB 20 MEQ TABCR PO STA (14:53)
--- NOTE | 2021-04-16 14:57 | CT Scan Report ---
CT ANGIOGRAM OF THE CHEST CLINICAL HISTORY: Dyspnea COMPARISON STUDY: Chest x-ray dated 04/16/2021. Chest CT dated 01/16/2021. TECHNIQUE: Following the IV administration of 120 cc of Optiray 320, CT angiogram of the chest was pe rformed from the upper abdomen to the thoracic inlet utilizing the pulmonary embolus protocol. Images are reviewed in the axial, sagittal, and coronal planes. 3-D MIPS images are created and assessed. I V contrast was administered without complication. A dose lowering technique was utilized adhering to the principles of ALARA. The examination is degraded by motion artifact. CT DOSE: 472.75 mGy.cm FINDINGS: Thyroid: Atrophic. Thoracic aorta: There is atherosclerotic calcification of the thoracic aorta, which is normal in [place] and demonstrates standard 3-vessel arch anatomy. No dissection is seen. Pulmonary vasculature: The main pulmonary arteries are dilated suggesting pulmonary artery hypertensi on. There are no filling defects identified in main, lobar, or segmental pulmonary branches to sugges t pulmonary embolus. Evaluation of the peripheral branches is degraded by motion artifact. Heart: The heart is markedly enlarged and without pericardial effusion. Lungs and pleural spaces: Evaluation of the lung parenchyma is degraded by motion artifact. Moderate emphysematous change is similar to previous. Question superimposed interstitial lung disease at the l jeremi bases. There is bibasilar scarring/atelectasis. Scattered calcified granulomas are observed. Post operative change is noted in the right upper lobe. No airspace consolidation is seen typical for pneu monia and no pleural effusion is identified. There is mild intralobular septal thickening. Mediastinum: There are numerous mildly enlarged mediastinal lymph nodes. Prevascular nodes measure up to 11 mm in short axis. Peritracheal nodes measure up to 13 mm in short axis. [place]: Enlarged hilar nodes measure up to 14 mm in short axis. Axillae: There is no axillary lymphadenopathy. Upper abdomen: There is a small hiatal hernia. Partially visualized upper abdominal viscera is otherw ise within normal limits. Skeletal structures: The skeletal structures are osteopenic. No lytic or blastic bony lesions are see n. There is chronic posttraumatic deformity of the left scapula as well as healed left-sided rib frac tures. IMPRESSION: 1. Motion compromised examination. 2. There is no evidence of pulmonary embolus in the main, lobar, or segmental pulmonary arteries. 3. Marked cardiomegaly. Intralobular septal thickening could represent acute versus chronic congestiv e change and clinical correlation will be required. 4. Emphysema and changes of chronic lung disease as above. 5. No superimposed airspace consolidation is seen typical for pneumonia and there is no pleural effus ion. 6. Mildly enlarged mediastinal and hilar lymph nodes are nonspecific and may be related to chronic radha ng disease. 7. Additional findings as above. ACT 112: Negative or not required by law. Electronically signed by: Edi Figueroa M.D. 04/16/2021 2:55 PM
--- NOTE | 2021-04-16 15:29 | History & Physical Report ---
Date of Service April 16, 2021 Assessment & Plan (1) Acute on chronic respiratory failure with hypoxia: (2) COPD exacerbation: (3) Dysphagia: (4) BENRA (obstructive sleep apnea): (5) Mild cognitive impairment: (6) HTN (hypertension): (7) Hypokalemia: Plan: This is a 70-year-old female who has a significant past medical history of chronic respiratory failure on 2 L of O2, COPD, interstitial lung disease with pulmonary fibrosis, tobacco abuse history, BERNA noncompliant with CPAP, CAD, HTN, chronic diastolic CHF, HLD, hypothyroidism, dementia, CKD stage III, GERD who presents to ED secondary to worsening shortness of breath x2 to 3 weeks. Acute on chronic respiratory failure with hypoxia COPD exacerbation Interstitial lung disease with idiopathic pulmonary fibrosis Admit to telemetry IV Solu-Medrol 40 mg every 8 starting tomorrow 04/17 Aggressive pulmonary toilet with DuoNeb 4 times daily, flutter valve, incentive spirometer Tessalon Perles and Mucinex ordered Patient recently completed 5-day course of 750 mg Levaquin, procalcitonin negative, no indication for antibiotic at this time Follow blood culture and sputum culture Follows [facility] pulmonology, low threshold for consult Continue Anoro, montelukast, Claritin, azelastine nasal spray Keep oxygen saturations 88 to 92% Hypokalemia 3.4, replace Monitor Hypertension Continue diltiazem, losartan, Lasix Clonidine as needed, patient states that she takes clonidine as needed when on steroids at home due to elevated blood pressure BERNA Noncompliant with CPAP, continue supplemental oxygen Mild cognitive impairment Continue Aricept Hypothyroidism Continue levothyroxine Dysphagia/history of aspiration Has seen speech therapy in the past Aspiration precautions, easy to chew diet Dispo: Admit to PCU, lives alone at home, will need PT/OT eval's prior to discharge disposition PCP: Zackery DNR/DNI Patient was seen and examined in collaboration with Dr. Gordon, please see addendum History of Present Illness Chief Complaint: Increasing SOB x 2-3 weeks. Primary Care Provider: Cristina Vizcarra MD This is a 70-year-old female who has a significant past medical history of chronic respiratory failure on 2 L of O2, COPD, interstitial lung disease with pulmonary fibrosis, tobacco abuse history, BERNA noncompliant with CPAP, CAD, HTN, chronic diastolic CHF, HLD, hypothyroidism, dementia, CKD stage III, GERD who presents to ED secondary to worsening shortness of breath x2 to 3 weeks. She is a [facility] at home patient. She notes her symptoms started approximately 3 weeks ago. She complains of increasingly more short of breath with exertion requiring increased oxygen to 3 to 4 L. She further complains of increasing productive cough of occasional yellow or brown sputum. Her cough is also occasionally hacking. She has been wheezing more and requiring increased use of her albuterol inhaler. She typically uses her DuoNeb 3 times a day and is also been requiring albuterol inhaler up to 4 times a day. She follows with [facility] Pulmonology. She has been compliant with her inhalers. At home she has been using Mucinex with minimal relief. [facility] at home also prescribed her to prednisone packs as well as she completed a 5-day course of Levaquin 750 mg 1 week ago. She denies feeling feverish, chills, sweats, lightheadedness, dizziness, shortness of breath at rest, chest pain, nausea, vomiting, abdominal pain, change in bowel or urinary habits. She states typically she is constipated and requires the use of MiraLAX and occasional Colace. She does complain of chest tightness with deep breathing. In ED patient remained hemodynamically stable but she did require increased oxygen requirement at 3 L. She had a mild elevated temp at 38.1. Her CBC and CMP was generally unremarkable except for mildly low potassium at 3.4 and WBC at 11.35. Her procalcitonin was WNL. Her lactate was 1.8. Chest CTA was negative for PE or acute consolidation but did reveal emphysematous changes as well as septal thickening. She received 10 mg IV dexamethasone as well as an hour-long nebulizer treatment in ED. She does feel mildly improved. Allergies Allergy/AdvReac Type Severity Reaction Status Date / Time baclofen Allergy Severe Unknown Verified 03/17/21 14:05 cefuroxime Allergy Severe Hives and Verified 03/17/21 14:05 Dizziness hydralazine Allergy Intermediate joint pain Verified 03/17/21 14:05 tetracycline Allergy Mild RASH Verified 03/17/21 14:05 budesonide AdvReac Severe caused her Verified 03/17/21 14:05 to cough constantly amlodipine AdvReac Mild Edema. Verified 03/17/21 14:05 Home Medications Medication Instructions Recorded Confirmed Type aspirin 81 mg tablet,delayed 81 mg PO QAM #30 tab 03/09/19 04/16/21 History release (Lo-Dose Aspirin) buspirone 15 mg tablet 15 mg PO HS 07/29/19 04/16/21 History loratadine 10 mg tablet (Claritin) 10 mg PO QAM 07/29/19 04/16/21 History losartan 100 mg tablet (Cozaar) 100 mg PO QAM 07/29/19 04/16/21 History pantoprazole 40 mg tablet,delayed 40 mg PO DAILYBB 07/29/19 04/16/21 History release (Protonix) CPAP Machine #1 ea 08/06/19 04/16/21 Rx diltiazem HCl 180 mg 180 mg PO QAM 08/12/19 04/16/21 History capsule,extended release 24 hr (Cartia XT) sertraline 100 mg tablet (Zoloft) 100 mg PO QAM #30 tab 10/15/19 04/16/21 Rx montelukast 10 mg tablet 10 mg PO HS 12/06/19 04/16/21 History furosemide 20 mg tablet (Lasix) 20 mg PO DAILY 12/07/19 04/16/21 History guaifenesin 600 mg tablet, 600 mg PO BID PRN #60 tab 01/09/20 04/16/21 Rx extended release 12 hr (Mucinex) levothyroxine 100 mcg tablet 100 mcg PO QAM 01/23/20 04/16/21 History Portable Oxygen #1 ea 04/04/20 04/16/21 Rx clonidine HCl 0.1 mg tablet 0.1 mg PO BID@0800,2000 PRN tab 05/13/20 04/16/21 History buspirone 15 mg tablet 7.5 mg PO QAM 01/16/21 04/16/21 History gabapentin 100 mg capsule 100 mg PO HS 01/16/21 04/16/21 History polyethylene glycol 3350 17 gram 17 g PO DAILY PRN #30 ea 01/19/21 04/16/21 Rx oral powder packet (Miralax) donepezil 5 mg tablet (Aricept) 5 mg PO QAM 01/20/21 04/16/21 History albuterol sulfate 90 mcg/actuation 2 puff INH Q4H PRN #18 gm 03/17/21 04/16/21 Rx aerosol inhaler (Ventolin HFA) ipratropium 0.5 mg-albuterol 3 mg 3 ml INH Q8H PRN #270 ml 03/17/21 04/16/21 Rx (2.5 mg base)/3 mL nebulization soln umeclidinium 62.5 mcg-vilanterol 1 inh INHALATION DAILY #60 ea 03/17/21 04/16/21 Rx 25 mcg/actuation powdr for inhalation (Anoro Ellipta) azelastine 137 mcg (0.1 %) nasal 1 spray INTRANASAL BID 04/16/21 04/16/21 History spray aerosol docusate sodium 100 mg capsule 100 mg PO BID 04/16/21 04/16/21 History prednisone 10 mg tablet See Rx Instructions PO DAILY PRN 04/16/21 04/16/21 History Past Med/Surg History Medical History Anxiety and depression Axillary lymphadenopathy Chronic back pain Chronic respiratory failure with hypoxia CKD (chronic kidney disease), stage III stage 3. follows with pcp. COPD (chronic obstructive pulmonary disease) Degenerative disc disease GERD (gastroesophageal reflux disease) History of breast cancer bilateral HTN (hypertension) Hx of duodenal ulcer Hyperlipidemia Hypothyroidism ILD (interstitial lung disease) Mild cognitive impairment On home oxygen therapy 2lpm via n/c continuous BERNA (obstructive sleep apnea) cpap Osteoarthritis Prediabetes Pulmonary fibrosis Restless legs syndrome hx SCC (squamous cell carcinoma) face Surgical History History of bilateral tubal ligation History of bronchoscopy History of cardiac cath no stents. (~1979) History of colonoscopy History of esophagogastroduodenoscopy (EGD) History of lung surgery thorascopy for lung biopsy S/P mastectomy, bilateral lymph node removal Left arm S/P thyroidectomy partial (r/t nodule) Family History Sister Myocardial infarction Sister Stroke Other No family history of adverse response to anesthesia Social History (Updated 04/16/21 @ 15:29 by Beverly Gudino PA-C) Smoking Status: Former smoker Tobacco Type: Cigarettes Cigarettes Per Day: 50 pack yr hx; Number of Years Since Quit: 9; Second Hand Exposure: No; Hx Alcohol Use: No Hx Substance Use: No Preferred Language: Chinese Communication Ability: Effective Corporate Travel Expert Required: No Beliefs That Will Affect Care: None marital status: Current Living Situation: Alone Current Living Situation Comment: Senior apartment building How many Children do You have: 2 Other Information That Helps Us Care for You: No Feels Safe at Home: Yes Safety Concerns: Feels Safe At This Time Assistive Devices: CPAP, Nebulizer, Oxygen - Continuous and Walker Assistive Devices Comment: has not been using cpap-broken Review of Systems Review of Systems: All systems reviewed & are unremarkable except as noted in HPI & below Physical Exam Physical Exam: Constitutional: WD/WN, vitals as above, NAD, sitting up in bed, pleasant, conversing easily Head: Normocephalic, Atraumatic Eyes: PERRL, conjunctivae normal, anicteric sclerae ENMT: external ear and nose normal, oropharynx normal Neck: trachea midline, no thyromegaly normal visual inspection Respiratory: normal respiratory effort, lungs clear to auscultation, no wheeze, rales, rhonchi. Normal insp/exp effort, no accessory muscle use Cardiovascular: RRR, no murmur, no edema Vessels: no JVD or carotid bruit Chest: normal inspection of chest Abdomen: normal bowel sounds, soft, nontender, no hepatosplenomegaly Musculoskeletal: no cyanosis or clubbing, extremities motor strength 5/5 Skin: no rashes, warm and dry normal turgor Neurologic: PERRL, EOMI, accommodation nl, no face palsy, no dysarthria CN's II-XI intact bilaterally and moves all extremities Psychiatric: A+Ox3, euthymic affect Lymphatic: no cervical or axillary lymphadenopathy : deferred Results & Data Results & Data ([facility]) Vital Signs (Past 12 Hours) Vital Signs Temp Pulse Pulse Resp BP Pulse Ox 04/16/21 14:34 72 20 96 04/16/21 14:30 70 22 124/65 97 04/16/21 14:06 76 24 131/77 96 04/16/21 13:30 70 20 120/72 99 04/16/21 12:49 79 18 97 04/16/21 12:06 38.1 C H 79 18 135/67 97 Diagnostic Findings Chest X-Ray 04/16/21 12:49 XR chest 1V portable HISTORY: 70 years-old Female SOB acute cough with shortness of breath COMPARISON: Chest radiograph 01/20/2021 TECHNIQUE: Portable AP view of the chest FINDINGS: The cardiac silhouette is enlarged. Emphysema with chronic interstitial coarsening. Mild left hemidiaphragmatic elevation redemonstrated. No pneumothorax, pleural effusion or overt pulmonary edema. Degenerative changes of the shoulders and spine. IMPRESSION: 1. Cardiomegaly without overt pulmonary edema. 2. Emphysema with chronic interstitial coarsening. ACT 112: Negative or not required by law. The above report was generated using voice recognition software. It may contain grammatical, syntax or spelling errors. Electronically signed by: Derrek Olivares M.D. 04/16/2021 2:09 PM Chest CTA 04/16/21 12:59 CT ANGIOGRAM OF THE CHEST CLINICAL HISTORY: Dyspnea COMPARISON STUDY: Chest x-ray dated 04/16/2021. Chest CT dated 01/16/2021. TECHNIQUE: Following the IV administration of 120 cc of Optiray 320, CT angiogram of the chest was performed from the upper abdomen to the thoracic inlet utilizing the pulmonary embolus protocol. Images are reviewed in the axial, sagittal, and coronal planes. 3-D MIPS images are created and assessed. IV contrast was administered without complication. A dose lowering technique was utilized adhering to the principles of ALARA. The examination is degraded by motion artifact. CT DOSE: 472.75 mGy.cm FINDINGS: Thyroid: Atrophic. Thoracic aorta: There is atherosclerotic calcification of the thoracic aorta, which is normal in caliber and demonstrates standard 3-vessel arch anatomy. No dissection is seen. Pulmonary vasculature: The main pulmonary arteries are dilated suggesting pulmonary artery hypertension. There are no filling defects identified in main, lobar, or segmental pulmonary branches to suggest pulmonary embolus. Evaluation of the peripheral branches is degraded by motion artifact. Heart: The heart is markedly enlarged and without pericardial effusion. Lungs and pleural spaces: Evaluation of the lung parenchyma is degraded by motion artifact. Moderate emphysematous change is similar to previous. Question superimposed interstitial lung disease at the lung bases. There is bibasilar s carring/atelectasis. Scattered calcified granulomas are observed. Postoperative change is noted in the right upper lobe. No airspace consolidation is seen typical for pneumonia and no pleural effusion is identified. There is mild intralobular septal thickening. Mediastinum: There are numerous mildly enlarged mediastinal lymph nodes. Prevascular nodes measure up to 11 mm in short axis. Peritracheal nodes measure up to 13 mm in short axis. [place]: Enlarged hilar nodes measure up to 14 mm in short axis. Axillae: There is no axillary lymphadenopathy. Upper abdomen: There is a small hiatal hernia. Partially visualized upper abdominal viscera is otherwise within normal limits. Skeletal structures: The skeletal structures are osteopenic. No lytic or blastic bony lesions are seen. There is chronic posttraumatic deformity of the left scapula as well as healed left-sided rib fractures. IMPRESSION: 1. Motion compromised examination. 2. There is no evidence of pulmonary embolus in the main, lobar, or segmental pulmonary arteries. 3. Marked cardiomegaly. Intralobular septal thickening could represent acute versus chronic congestive change and clinical correlation will be required. 4. Emphysema and changes of chronic lung disease as above. 5. No superimposed airspace consolidation is seen typical for pneumonia and there is no pleural effusion. 6. Mildly enlarged mediastinal and hilar lymph nodes are nonspecific and may be related to chronic lung disease. 7. Additional findings as above. ACT 112: Negative or not required by law. Electronically signed by: Edi Figueroa M.D. 04/16/2021 2:55 PM Medications Administered Medication List Discontinued Medications Albuterol (Albut/Ipratrop 3mg/0.5mg Neb 3 Ml Vial) 12 ml NEB ONE ONE Stop: 04/16/21 13:00 Last Admin: 04/16/21 14:32 Dose: 12 ml Documented by: [id number] Dexamethasone Sodium Phosphate (DexamethasonePf 10 Mg/Ml Vial) 10 mg IV NOW ONE Stop: 04/16/21 13:00 Last Admin: 04/16/21 13:35 Dose: 10 mg Documented by: [id number] Sodium Chloride (Nss 1000ml) 1,000 mls @ 999 mls/hr IV .Q1H1M ONE Stop: 04/16/21 13:59 Last Infusion: 04/16/21 14:41 Dose: 0 mls/hr Documented by: [id number] Admin: 04/16/21 13:34 Dose: 999 mls/hr Documented by: [id number] Ioversol (Optiray 320 125ml) 120 ml IV ONCE ONE Stop: 04/16/21 14:20 Last Admin: 04/16/21 14:20 Dose: 120 ml Documented by: [id number] ECG Rate (beats per minute): 72 Rhythm: normal sinus Additional Comments: qtc 424ms T wave inversion in lead V2 COVID-19 Results Results COVID-19 Adm Lab Results: RBC 4.27 M/uL (4.2-5.4) 04/16/21 WBC 11.35 K/uL (4.8-10.8) H 04/16/21 Hgb 12.5 g/dL (12.0-16.0) 04/16/21 Hct 36.0 % (37-47) L 04/16/21 Plt Count 373 K/uL (130-400) 04/16/21 Neutrophils (%) (Auto) 67.1 % 04/16/21 Lymphocytes (%) (Auto) 23.2 % 04/16/21 Monocytes # (Auto) 0.95 K/uL (0.11-0.59) H 04/16/21 Eosinophils # (Auto) 0.07 K/uL (0-0.5) 04/16/21 Immature Granulocyte % (Auto) 0.4 % 04/16/21 Neutrophils # (Auto) 7.62 K/uL (1.4-6.5) H 04/16/21 Lymphocytes # (Auto) 2.63 K/uL (1.2-3.4) 04/16/21 Monocytes # (Auto) 0.95 K/uL (0.11-0.59) H 04/16/21 Eosinophils # (Auto) 0.07 K/uL (0-0.5) 04/16/21 Basophils # (Auto) 0.03 K/uL (0-0.2) 04/16/21 Immature Granulocyte # (Auto) 0.05 K/uL (0.00-0.02) H 04/16/21 Na 138 mmol/L (136-145) 04/16/21 K 3.4 mmol/L (3.5-5.1) L 04/16/21 Cl 104 mmol/L (98-107) 04/16/21 CO2 27 mmol/L (21-32) 04/16/21 Anion Gap 7.0 (3-11) 04/16/21 BUN 13 mg/dl (7-18) 04/16/21 Creatinine 0.92 mg/dl (0.6-1.2) 04/16/21 BUN/Creatinine Ratio 13.7 (10-20) 04/16/21 Glucose Level 101 mg/dl (70-99) H 04/16/21 Ca 10.0 mg/dl (8.5-10.1) 04/16/21 Total Bilirubin 0.4 mg/dl (0.2-1) 04/16/21 AST/SGOT 24 U/L (15-37) 04/16/21 ALT/SGPT 30 U/L (12-78) 04/16/21 Alkaline Phosphatase 98 U/L (45-117) 04/16/21 Total Protein 7.3 gm/dl (6.4-8.2) 04/16/21 Albumin 3.5 gm/dl (3.4-5.0) 04/16/21 Globulin 3.8 gm/dl (2.5-4.0) 04/16/21 Albumin/Globulin Ratio 0.9 (0.9-2) 04/16/21 Troponin I < 0.015 ng/ml (0-0.045) 04/16/21 Procalcitonin < 0.05 ng/ml (0-0.5) 04/16/21 PTT 28.1 Seconds (21.0-31.0) 04/16/21 INR 1.0 (0.9-1.1) 04/16/21 COVID-19 PCR NEGATIVE (Negative) 04/16/21 Chest X-Ray 04/16/21 Code Status & VTE Plan Code Status DNR/DNI VTE Prophylaxis Plan VTE Prophylaxis will be ordered: Yes Supervising Physician Co-Signing Physician Notes Attending addendum The patient was seen and examined in telemetry unit She has been complaining of shortness of breath with cough for the last few days She has had recent courses of antibiotic and also courses of steroid Since admission she feels a little bit better On examination Moderate shortness of breath at rest Hemodynamically stable with tachycardia of 107 Chest-decreased breath sounds all over Heart-S1-S2, regular Abdomen-benign Extremities-trace edema bilaterally ERECTING ENGINEER-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
[2021-04-16] MEDS ORDERED: ALUMINUM/MAGNESIUM SUSP 30 ML UDC PO PRN (16:44)
[2021-04-16] MEDS ORDERED: POLYETHYLENE (MIRALAX) 17 GM PACK PO PRN ×2 (16:44)
[2021-04-16] MEDS ORDERED: ONDANSETRON INJ 2 MG/ML 2 ML VIAL IV PRN (16:44)
[2021-04-16] MEDS ORDERED: MAGNESIUM HYDROXIDE SUSP 30 ML UDC PO PRN (16:44)
[2021-04-16 17:27] LABS: Appearance Urine Clear (Clear); Bilirubin Urine Negative (Negative); Blood Urine Negative (Negative); Color Urine Yellow; Glucose Urine UA Negative (Negative); Ketones Urine Negative (Negative); Leukocyte Esterase Urine Negative (Negative); Nitrite Urine Negative (Negative); Protein Urine Negative (Negative); Specific Gravity Urine 1.024 (1.000-1.030); Urobilinogen Urine Negative (Negative)
[2021-04-16] MEDS: guaiFENesin 600 MG TABCR PO SCH (18:27)
[2021-04-16] MEDS: ALBUT/IPRATROP 3MG/0.5MG NEB 3 ML VIAL NEB SCH (19:22)
[2021-04-16] MEDS ORDERED: cloNIDine HCL 0.1 MG TAB PO PRN (20:00)
[2021-04-16] MEDS: ENOXAPARIN INJ 40 MG/0.4 ML SYR SQ SCH (20:31)
[2021-04-16] MEDS: BENZONATATE 100 MG CAPSULE PO SCH (20:33)
[2021-04-16] MEDS: AZELASTINE HCL 0.1% NASAL 200 SPRAYS/27,400 MCG BTL SCH (20:33)
[2021-04-16] MEDS: MONTELUKAST SODIUM 10 MG TABLET PO SCH (20:33)
[2021-04-16] MEDS: busPIRone 15 MG TAB PO SCH (20:33)
[2021-04-16] MEDS: GABAPENTIN 100 MG CAP PO SCH (20:33)
[2021-04-16] MEDS: DOCUSATE SODIUM 100 MG CAP PO SCH (20:33)
[2021-04-16] MEDS ORDERED: guaiFENesin 600 MG TABCR PO SCH (21:00)
[2021-04-16] MEDS: HYDROcodone/HOMATROPINE SYRUP 5MG/1.5MG 5ML UDP PO PRN (21:20)
--- NOTE | 2021-04-16 22:41 | Electrocardiogram Report ---
Test Reason : Blood Pressure : / mmHG Vent. Rate : 072 BPM Atrial Rate : 072 BPM P-R Int : 144 ms QRS Dur : 086 ms QT Int : 388 ms P-R-T Axes : 047 -22 014 degrees QTc Int : 424 ms Normal sinus rhythm with sinus arrhythmia Moderate voltage criteria for LVH, may be normal variant Nonspecific T wave abnormality Abnormal ECG When compared with ECG of 20-JAN-2021 05:45, T wave inversion now evident in Anterior leads Confirmed by Rishabh Villa ([id number]) on 04/16/2021 10:41:12 PM Referred By: ER Confirmed By:Rishabh Villa
[2021-04-17] MEDS: HYDROcodone/HOMATROPINE SYRUP 5MG/1.5MG 5ML UDP PO PRN ×3 (05:37→19:05)
[2021-04-17] MEDS: LEVOTHYROXINE SODIUM 100 MCG TABLET PO SCH (05:37)
[2021-04-17] MEDS: PANTOprazole 40 MG TAB PO SCH (05:38)
[2021-04-17 06:06] LABS: Hemoglobin 11.1 g/dL (12.0-16.0); Mean Corpuscular Hemoglobin 28.5 pg (25-34); Mean Corpuscular Hgb Conc 33.6 g/dL (32-36); Mean Corpuscular Volume 84.8 fL (80-100); Platelet Count 351 K/uL (130-400); RDW Standard Deviation 46.7 fL (36.4-46.3); Red Blood Count 3.89 M/uL (4.2-5.4); White Blood Count 8.48 K/uL (4.8-10.8)
[2021-04-17 06:41] LABS: BUN Creatinine Ratio 18.1 (10-20); Calcium 9.5 mg/dl (8.5-10.1); Est GFR (African American) 71.2 ml/min; Est GFR (Non-African American) 61.4 ml/min; Potassium 4.8 mmol/L (3.5-5.1)
[2021-04-17] MEDS: ALBUT/IPRATROP 3MG/0.5MG NEB 3 ML VIAL NEB SCH ×4 (07:20→19:09)
[2021-04-17] MEDS: SERTRALINE HCL 100 MG TABLET PO SCH (08:26)
[2021-04-17] MEDS: methylPREDNISolone 40 MG in SYRINGE 0 ML IV SCH ×3 (08:26→23:53)
[2021-04-17] MEDS: LORATADINE 10 MG TAB PO SCH (08:26)
[2021-04-17] MEDS: BENZONATATE 100 MG CAPSULE PO SCH ×3 (08:26→20:13)
[2021-04-17] MEDS: FUROSEMIDE 20 MG TAB PO SCH (08:26)
[2021-04-17] MEDS: LOSARTAN POTASSIUM 50 MG TAB PO SCH (08:26)
[2021-04-17] MEDS: DOCUSATE SODIUM 100 MG CAP PO SCH ×2 (08:26→20:13)
[2021-04-17] MEDS: DONEPEZIL HCL 5 MG TAB PO SCH (08:26)
[2021-04-17] MEDS: dilTIAZem HCL 180 MG CAPCR PO SCH (08:26)
[2021-04-17] MEDS: ASPIRIN 81 MG ECTAB PO SCH (08:26)
[2021-04-17] MEDS: busPIRone 7.5 MG TAB PO SCH (08:26)
[2021-04-17] MEDS: AZELASTINE HCL 0.1% NASAL 200 SPRAYS/27,400 MCG BTL SCH ×2 (08:27→20:12)
[2021-04-17] MEDS: guaiFENesin 600 MG TABCR PO SCH ×2 (08:27→20:13)
[2021-04-17] MEDS: UMECLIDINIUM/VILANTEROL 62.5/25MCG 7 PUFFS/INHALER INH SCH (08:27)
[2021-04-17] MEDS: ACETAMINOPHEN 325 MG TAB PO PRN ×3 (08:34→22:10)
--- NOTE | 2021-04-17 16:05 | Hospitalist Progress Note ---
Date of Service April 17, 2021 Assessment & Plan (1) Acute on chronic respiratory failure with hypoxia: Plan: Secondary to COPD exacerbation Doubt any infective etiology Has been on Solu-Medrol and bronchodilators Clinically a little bit better (2) COPD exacerbation: Plan: Doubt any infection We will continue nebulized bronchodilator and steroid Has significant cough Adequate cough suppressant has been given Chest PT Possible sinusitis Complains of pain in the right maxillary sinus area Tenderness on palpation We will administer Augmentin (3) Dysphagia: Plan: No acute problem (4) BERNA (obstructive sleep apnea): Plan: We will advised to use her own CPAP which she is noncompliant Continue supplemental oxygen (5) Mild cognitive impairment: (6) HTN (hypertension): Plan: Blood pressure seems to be the lower side We will continue current medications (7) Hypokalemia: Plan: This is a 70-year-old female who has a significant past medical history of chronic respiratory failure on 2 L of O2, COPD, interstitial lung disease with pulmonary fibrosis, tobacco abuse history, BERNA noncompliant with CPAP, CAD, HTN, chronic diastolic CHF, HLD, hypothyroidism, dementia, CKD stage III, GERD who presents to ED secondary to worsening shortness of breath x2 to 3 weeks. Acute on chronic respiratory failure with hypoxia COPD exacerbation Interstitial lung disease with idiopathic pulmonary fibrosis Admit to telemetry IV Solu-Medrol 40 mg every 8 starting tomorrow 04/17 Aggressive pulmonary toilet with DuoNeb 4 times daily, flutter valve, incentive spirometer Tessalon Perles and Mucinex ordered Patient recently completed 5-day course of 750 mg Levaquin, procalcitonin negative, no indication for antibiotic at this time Follow blood culture and sputum culture Follows [facility] [place], low threshold for consult Continue Anoro, montelukast, Claritin, azelastine nasal spray Keep oxygen saturations 88 to 92% Hypokalemia 3.4, replace Monitor Hypertension Continue diltiazem, losartan, Lasix Clonidine as needed, patient states that she takes clonidine as needed when on steroids at home due to elevated blood pressure BERNA Noncompliant with CPAP, continue supplemental oxygen Mild cognitive impairment Continue Aricept Hypothyroidism Continue levothyroxine Dysphagia/history of aspiration Has seen speech therapy in the past Aspiration precautions, easy to chew diet DVT prophylaxis Subcu Lovenox Dispo: Admit to PCU, lives alone at home, will need PT/OT eval's prior to discharge disposition PCP: Zackery DNR/DNI Admission and Anticipated Discharge Date Admission Date: April 16, 2021 Subjective 04/17/2021 The patient was seen and examined in telemetry unit Has been feeling a little better since admission Still has cough with shortness of breath at rest Complains to have sinus pain and pressure especially on the right side Review of Systems Review of Systems: All systems reviewed and are unremarkable except as noted below Respiratory: Shortness of breath with cough Physical Exam Physical Exam: Lying in the bed without any acute distress except some cough and shortness of breath Constitutional: well developed, well nourished, + ill appearing and + obese Eyes: PERRL, conjunctivae normal, anicteric sclerae ENMT: external ear and nose normal, oropharynx normal Neck: trachea midline, no thyromegaly Respiratory: + respiratory distress and + cough Auscultation: + diminished lung sounds; no crackles and no wheezes Cardiovascular: Rate/Rhythm: regular rate and regular rhythm; not tachycardic Heart Sounds: normal S1 and normal S2; no murmur Gastrointestinal (Abdomen): Inspection/Auscultation: normal bowel sounds; abdomen not distended Percussion/Palpation: abdomen soft; abdomen nontender Musculoskeletal: No acute arthritis in any joint Neurologic: Alert, awake and oriented x3. Generally weak Results & Data Results & Data ([facility]) Vital Signs (Past 12 Hours) Vital Signs Temp Pulse Pulse Resp BP Pulse Ox 04/17/21 11:54 36.9 C 66 18 93/61 L 95 04/17/21 11:22 75 16 90 04/17/21 08:21 71 04/17/21 07:44 37.4 C 101 H 20 157/74 H 89 L 04/17/21 07:20 81 16 96 Laboratory Results Short CBC 04/17/21 Range/Units 05:42 WBC 8.48 (4.8-10.8) K/uL Hgb 11.1 L (12.0-16.0) g/dL Hct 33.0 L (37-47) % Plt Count 351 (130-400) K/uL BMP 04/17/21 05:42 Sodium 135 L Potassium 4.8 D Chloride 105 Carbon Dioxide 26 BUN 17 Creatinine 0.93 Glucose 143 H Calcium 9.5 Urine 04/16/21 Range/Units 17:06 Urine Color Yellow Urine Appearance Clear (Clear) Urine pH 6.0 (4.5-7.5) Ur Specific [place] 1.024 (1.000-1.030) Urine Protein Negative (Negative) Urine Glucose (UA) Negative (Negative) Medications Administered Current Inpatient Medications Acetaminophen (Acetaminophen 325 Mg Tab) 650 mg PO Q4H PRN PRN Reason: Pain or Fever Stop: 05/16/21 16:43 Last Admin: 04/17/21 15:10 Dose: 650 mg Documented by: Al Hydrox/Mg Hydrox/Simethicone (Aluminum/Magnesium Susp 30 Ml Udc) 15 ml PO Q4H PRN PRN Reason: Dyspepsia Stop: 05/16/21 16:43 Albuterol (Albut/Ipratrop 3mg/0.5mg Neb 3 Ml Vial) 3 ml NEB QIDR [facility] Stop: 05/16/21 18:59 Last Admin: 04/17/21 16:00 Dose: 3 ml Documented by: Amoxicillin/Clavulanate Potassium (Amoxicillin/Clavulanate 875 Mg Tab) 1 tab PO BIDM [facility] Stop: 04/24/21 16:59 Aspirin (Aspirin 81 Mg Ectab) 81 mg PO QAM [facility] Stop: 05/17/21 08:59 Last Admin: 04/17/21 08:26 Dose: 81 mg Documented by: Azelastine HCl (Azelastine Hcl 0.1% Nasal 200 Sprays/27,400 Mcg Btl) 1 sprays NA BID [facility] Stop: 05/16/21 20:59 Last Admin: 04/17/21 08:27 Dose: 1 sprays Documented by: Benzonatate (Benzonatate 100 Mg Capsule) 100 mg PO TID [facility] Stop: 05/16/21 20:59 Last Admin: 04/17/21 13:07 Dose: 100 mg Documented by: Buspirone HCl (Buspirone 15 Mg Tab) 15 mg PO HS [facility] Stop: 05/16/21 20:59 Last Admin: 04/16/21 20:33 Dose: 15 mg Documented by: Buspirone HCl (Buspirone 7.5 Mg Tab) 7.5 mg PO QAM [facility] Stop: 05/17/21 08:59 Last Admin: 04/17/21 08:26 Dose: 7.5 mg Documented by: Clonidine HCl (Clonidine Hcl 0.1 Mg Tab) 0.1 mg PO BID@0800,2000 PRN PRN Reason: HTN Stop: 05/16/21 19:59 Diltiazem HCl (Diltiazem Hcl 180 Mg Capcr) 180 mg PO QAM [facility] Stop: 05/17/21 08:59 Last Admin: 04/17/21 08:26 Dose: 180 mg Documented by: Docusate Sodium (Docusate Sodium 100 Mg Cap) 100 mg PO BID [facility] Stop: 05/16/21 20:59 Last Admin: 04/17/21 08:26 Dose: 100 mg Documented by: Donepezil HCl (Donepezil Hcl 5 Mg Tab) 5 mg PO QAM [facility] Stop: 05/17/21 08:59 Last Admin: 04/17/21 08:26 Dose: 5 mg Documented by: Enoxaparin Sodium (Enoxaparin Inj 40 Mg/0.4 Ml Syr) 40 mg SQ Q24H [facility] Stop: 05/16/21 21:59 Last Admin: 04/16/21 20:31 Dose: 40 mg Documented by: Furosemide (Furosemide 20 Mg Tab) 20 mg PO DAILY [facility] Stop: 05/17/21 08:59 Last Admin: 04/17/21 08:26 Dose: 20 mg Documented by: Gabapentin (Gabapentin 100 Mg Cap) 100 mg PO HS [facility] Stop: 05/16/21 20:59 Last Admin: 04/16/21 20:33 Dose: 100 mg Documented by: Guaifenesin (Guaifenesin 600 Mg Tabcr) 600 mg PO Q12 [facility] Stop: 05/16/21 18:19 Last Admin: 04/17/21 08:27 Dose: 600 mg Documented by: Hydrocodone Bit/Homatropine Methylb (Hydrocodone/Homatropine Syrup 5mg/1.5mg 5ml Udp) 5 ml PO Q6H PRN PRN Reason: Cough Stop: 04/30/21 20:48 Last Admin: 04/17/21 13:07 Dose: 5 ml Documented by: Methylprednisolone 40 mg/ (Syringe) 0.64 mls @ 1.5 mls/min IV Q8H [facility] Stop: 05/17/21 07:59 Last Admin: 04/17/21 08:26 Dose: 1.5 mls/min Documented by: Levothyroxine Sodium (Levothyroxine Sodium 100 Mcg Tablet) 100 mcg PO DAILYBB [facility] Stop: 05/17/21 06:29 Last Admin: 04/17/21 05:37 Dose: 100 mcg Documented by: Loratadine (Loratadine 10 Mg Tab) 10 mg PO QAM [facility] Stop: 05/17/21 08:59 Last Admin: 04/17/21 08:26 Dose: 10 mg Documented by: Losartan Potassium (Losartan Potassium 50 Mg Tab) 100 mg PO QAM [facility] Stop: 05/17/21 08:59 Last Admin: 04/17/21 08:26 Dose: 100 mg Documented by: Magnesium Hydroxide (Magnesium Hydroxide Susp 30 Ml Udc) 30 ml PO Q12H PRN PRN Reason: Constipation Stop: 05/16/21 16:43 Montelukast Sodium (Montelukast Sodium 10 Mg Tablet) 10 mg PO HS [facility] Stop: 05/16/21 20:59 Last Admin: 04/16/21 20:33 Dose: 10 mg Documented by: Ondansetron HCl (Ondansetron Inj 2 Mg/Ml 2 Ml Vial) 4 mg IV Q6H PRN PRN Reason: Nausea Stop: 05/16/21 16:43 Pantoprazole Sodium (Pantoprazole 40 Mg Tab) 40 mg PO DAILYBB [facility] Stop: 05/17/21 06:29 Last Admin: 04/17/21 05:38 Dose: 40 mg Documented by: Polyethylene Glycol (Polyethylene (Miralax) 17 Gm Pack) 17 gm PO DAILY PRN PRN Reason: Constipation Stop: 05/16/21 16:43 Sertraline HCl (S[facility]ine Hcl 100 Mg Tablet) [facility] [place]: 05/17/21 08:59 Last Admin: 04/17/21 08:26 Dose: 100 mg Documented by: Umeclidinium/Vilanterol (Umeclidinium/Vilanterol 62.5/25mcg 7 Puffs/Inhaler) 1 puffs INH DAILY [facility] Stop: 05/17/21 08:59 Last Admin: 04/17/21 08:27 Dose: 1 puffs Documented by: (1) HTN (hypertension) Hypertension type: essential hypertension Qualified Code(s): I10 - Essential (primary) hypertension
[2021-04-17] MEDS: AMOXICILLIN/CLAVULANATE 875 MG TAB PO SCH (16:37)
[2021-04-17] MEDS: ENOXAPARIN INJ 40 MG/0.4 ML SYR SQ SCH (20:12)
[2021-04-17] MEDS: busPIRone 15 MG TAB PO SCH (20:13)
[2021-04-17] MEDS: GABAPENTIN 100 MG CAP PO SCH (20:13)
[2021-04-17] MEDS: MONTELUKAST SODIUM 10 MG TABLET PO SCH (20:13)
[2021-04-18] MEDS: HYDROcodone/HOMATROPINE SYRUP 5MG/1.5MG 5ML UDP PO PRN ×4 (01:25→22:04)
[2021-04-18] MEDS: LEVOTHYROXINE SODIUM 100 MCG TABLET PO SCH (06:36)
[2021-04-18] MEDS: PANTOprazole 40 MG TAB PO SCH (06:36)
[2021-04-18 07:02] LABS: BUN Creatinine Ratio 25.7 (10-20); Calcium 9.4 mg/dl (8.5-10.1); Creatinine Clr Calc Pharmacy 59.1 ml/min; Est GFR (African American) 71.2 ml/min; Est GFR (Non-African American) 61.4 ml/min; Magnesium 2.5 mg/dl (1.8-2.4); Potassium 4.6 mmol/L (3.5-5.1)
[2021-04-18 07:03] LABS: Phosphorus 4.5 mg/dl (2.5-4.9)
[2021-04-18] MEDS: ALBUT/IPRATROP 3MG/0.5MG NEB 3 ML VIAL NEB SCH ×4 (07:20→19:14)
[2021-04-18] MEDS: LOSARTAN POTASSIUM 50 MG TAB PO SCH (08:24)
[2021-04-18] MEDS: LORATADINE 10 MG TAB PO SCH (08:25)
[2021-04-18] MEDS: AMOXICILLIN/CLAVULANATE 875 MG TAB PO SCH ×2 (08:25→16:24)
[2021-04-18] MEDS: ASPIRIN 81 MG ECTAB PO SCH (08:25)
[2021-04-18] MEDS: busPIRone 7.5 MG TAB PO SCH (08:25)
[2021-04-18] MEDS: dilTIAZem HCL 180 MG CAPCR PO SCH (08:25)
[2021-04-18] MEDS: BENZONATATE 100 MG CAPSULE PO SCH ×3 (08:25→20:33)
[2021-04-18] MEDS: guaiFENesin 600 MG TABCR PO SCH ×2 (08:25→20:33)
[2021-04-18] MEDS: methylPREDNISolone 40 MG in SYRINGE 0 ML IV SCH ×3 (08:25→23:06)
[2021-04-18] MEDS: DONEPEZIL HCL 5 MG TAB PO SCH (08:25)
[2021-04-18] MEDS: SERTRALINE HCL 100 MG TABLET PO SCH (08:25)
[2021-04-18] MEDS: DOCUSATE SODIUM 100 MG CAP PO SCH ×2 (08:25→20:33)
[2021-04-18] MEDS: FUROSEMIDE 20 MG TAB PO SCH (08:25)
[2021-04-18] MEDS: AZELASTINE HCL 0.1% NASAL 200 SPRAYS/27,400 MCG BTL SCH ×2 (08:26→20:33)
[2021-04-18] MEDS: UMECLIDINIUM/VILANTEROL 62.5/25MCG 7 PUFFS/INHALER INH SCH (08:31)
--- NOTE | 2021-04-18 14:56 | Hospitalist Progress Note ---
Date of Service April 18, 2021 Assessment & Plan (1) Acute on chronic respiratory failure with hypoxia: Plan: Secondary to COPD exacerbation Doubt any infective etiology Has been on Solu-Medrol and bronchodilators Remains stable and complains of frequent coughs Requiring 2 L oxygen to maintain saturation wheezes at her baseline (2) COPD exacerbation: Plan: Patient recently completed 5-day course of 750 mg Levaquin, procalcitonin negative, no indication for antibiotic at this time Follow blood culture and sputum culture-negative Follows [facility] [place] pul[place]ology, low threshold for consult Continue Anoro, montelukast, Claritin, azelastine nasal spray Keep oxygen saturations 88 to 92% Doubt any infection We will continue nebulized bronchodilator and steroid Adequate cough suppressant has been given Chest PT Will continue current management and probably to a steps tomorrow before discharge Possible sinusitis Complains of pain in the right maxillary sinus area Tenderness on palpation We will administer Augmentin Sinus pain and symptoms are improving (3) Dysphagia: Plan: No acute problem (4) BERNA (obstructive sleep apnea): Plan: We will advised to use her own CPAP which she is noncompliant Continue supplemental oxygen (5) Mild cognitive impairment: (6) HTN (hypertension): Plan: Blood pressure seems to be the lower side We will continue current medications (7) Hypokalemia: Plan: This is a 70-year-old female who has a significant past medical history of chronic respiratory failure on 2 L of O2, COPD, interstitial lung disease with pulmonary fibrosis, tobacco abuse history, BERNA noncompliant with CPAP, CAD, HTN, chronic diastolic CHF, HLD, hypothyroidism, dementia, CKD stage III, GERD who presents to ED secondary to worsening shortness of breath x2 to 3 weeks. Acute on chronic respiratory failure with hypoxia COPD exacerbation Interstitial lung disease with idiopathic pulmonary fibrosis Admit to telemetry IV Solu-Medrol 40 mg every 8 starting tomorrow 04/17 Aggressive pulmonary toilet with DuoNeb 4 times daily, flutter valve, incentive spirometer Tessalon Perles and Mucinex ordered Hypokalemia 3.4, replace Monitor Hypertension Continue diltiazem, losartan, Lasix Clonidine as needed, patient states that she takes clonidine as needed when on steroids at home due to elevated blood pressure BERNA Noncompliant with CPAP, continue supplemental oxygen Mild cognitive impairment Continue Aricept Hypothyroidism Continue levothyroxine Dysphagia/history of aspiration Has seen speech therapy in the past Aspiration precautions, easy to chew diet DVT prophylaxis Subcu Lovenox Dispo: Admit to PCU, lives alone at home, will need PT/OT eval's prior to discharge disposition PCP: Zackery DNR/DNI Admission and Anticipated Discharge Date Admission Date: April 16, 2021 Subjective 04/17/2021 The patient was seen and examined in telemetry unit Has been feeling a little better since admission Still has cough with shortness of breath at rest Complains to have sinus pain and pressure especially on the right side 04/18/2021 The patient was seen and examined in telemetry unit She remains short of breath with cough Clinically a little better Denies any fever and no chills Review of Systems Review of Systems: All systems reviewed and are unremarkable except as noted below Respiratory: Shortness of breath with cough Physical Exam Physical Exam: Lying in the bed without any acute distress except some cough and shortness of breath Constitutional: well developed, well nourished, + ill appearing and + obese Eyes: PERRL, conjunctivae normal, anicteric sclerae ENMT: external ear and nose normal, oropharynx normal Neck: trachea midline, no thyromegaly Respiratory: + respiratory distress and + cough Auscultation: + diminished lung sounds; no crackles and no wheezes Cardiovascular: Rate/Rhythm: regular rate and regular rhythm; not tachycardic Heart Sounds: normal S1 and normal S2; no murmur Gastrointestinal (Abdomen): Inspection/Auscultation: normal bowel sounds; abdomen not distended Percussion/Palpation: abdomen soft; abdomen nontender Musculoskeletal: No acute arthritis in any joint Neurologic: Alert, awake and oriented x3. No focal sensory and motor deficit appreciated Results & Data Results & Data ([facility]) Vital Signs (Past 12 Hours) Vital Signs Temp Pulse Pulse Resp BP Pulse Ox 04/18/21 11:46 36.5 C 88 16 115/63 97 04/18/21 11:19 84 20 95 04/18/21 08:13 75 04/18/21 08:00 37.0 C 90 16 159/79 H 96 04/18/21 07:20 95 H 18 95 04/18/21 04:50 36.6 C 80 20 142/61 H 91 Laboratory Results [facility] 04/18/21 06:16 Sodium 134 L Potassium 4.6 Chloride 102 Carbon Dioxide 26 BUN 24 H Creatinine 0.93 Glucose 136 H Calcium 9.4 Medications Administered Current Inpatient Medications Acetaminophen (Acetaminophen 325 Mg Tab) 650 mg PO Q4H PRN PRN Reason: Pain or Fever Stop: 05/16/21 16:43 Last Admin: 04/17/21 22:10 Dose: 650 mg Documented by: Al Hydrox/Mg Hydrox/Simethicone (Aluminum/Magnesium Susp 30 Ml Udc) 15 ml PO Q4H PRN PRN Reason: Dyspepsia Stop: 05/16/21 16:43 Albuterol (Albut/Ipratrop 3mg/0.5mg Neb 3 Ml Vial) 3 ml NEB QIDR [facility] Stop: 05/16/21 18:59 Last Admin: 04/18/21 11:19 Dose: 3 ml Documented by: Amoxicillin/Clavulanate Potassium (Amoxicillin/Clavulanate 875 Mg Tab) 1 tab PO BIDM [facility] Stop: 04/24/21 16:59 Last Admin: 04/18/21 08:25 Dose: 1 tab Documented by: Aspirin (Aspirin 81 Mg Ectab) 81 mg PO [facility] Stop: 05/17/21 08:59 Last Admin: 04/18/21 08:25 Dose: 81 mg Documented by: Azelastine HCl (Azelastine Hcl 0.1% Nasal 200 Sprays/27,400 Mcg Btl) 1 sprays NA BID [facility] Stop: 05/16/21 20:59 Last Admin: 04/18/21 08:26 Dose: 1 sprays Documented by: Benzonatate (Benzonatate 100 Mg Capsule) 100 mg PO TID [facility] Stop: 05/16/21 20:59 Last Admin: 04/18/21 13:40 Dose: 100 mg Documented by: Buspirone HCl (Buspirone 15 Mg Tab) 15 mg PO [facility] Stop: 05/16/21 20:59 Last Admin: 04/17/21 20:13 Dose: 15 mg Documented by: Buspirone HCl (Buspirone 7.5 Mg Tab) [facility] [place]: 05/17/21 08:59 Last Admin: 04/18/21 08:25 Dose: 7.5 mg Documented by: Clonidine HCl (Clonidine Hcl 0.1 Mg Tab) 0.1 mg PO BID@0800,2000 PRN PRN Reason: HTN Stop: 05/16/21 19:59 Diltiazem HCl (Diltiazem Hcl 180 Mg Capcr) 180 mg PO QAM [facility] Stop: 05/17/21 08:59 Last Admin: 04/18/21 08:25 Dose: 180 mg Documented by: Docusate Sodium (Docusate Sodium 100 Mg Cap) 100 mg PO BID [facility] Stop: 05/16/21 20:59 Last Admin: 04/18/21 08:25 Dose: 100 mg Documented by: Donepezil HCl (Donepezil Hcl 5 Mg Tab) 5 mg PO QAM [facility] Stop: 05/17/21 08:59 Last Admin: 04/18/21 08:25 Dose: 5 mg Documented by: Enoxaparin Sodium (Enoxaparin Inj 40 Mg/0.4 Ml Syr) 40 mg SQ Q24H [facility] Stop: 05/16/21 21:59 Last Admin: 04/17/21 20:12 Dose: 40 mg Documented by: Furosemide (Furosemide 20 Mg Tab) 20 mg PO DAILY [facility] Stop: 05/17/21 08:59 Last Admin: 04/18/21 08:25 Dose: 20 mg Documented by: Gabapentin (Gabapentin 100 Mg Cap) 100 mg PO HS [facility] Stop: 05/16/21 20:59 Last Admin: 04/17/21 20:13 Dose: 100 mg Documented by: Guaifenesin (Guaifenesin 600 Mg Tabcr) 600 mg PO Q12 [facility] Stop: 05/16/21 18:19 Last Admin: 04/18/21 08:25 Dose: 600 mg Documented by: Hydrocodone Bit/Homatropine Methylb (Hydrocodone/Homatropine Syrup 5mg/1.5mg 5ml Udp) 5 ml PO Q6H PRN PRN Reason: Cough Stop: 04/30/21 20:48 Last Admin: 04/18/21 10:24 Dose: 5 ml Documented by: Methylprednisolone 40 mg/ (Syringe) 0.64 mls @ 1.5 mls/min IV Q8H [facility] Stop: 05/17/21 07:59 Last Admin: 04/18/21 08:25 Dose: 1.5 mls/min Documented by: Levothyroxine Sodium (Levothyroxine Sodium 100 Mcg Tablet) 100 mcg PO DAILYBB [facility] Stop: 05/17/21 06:29 Last Admin: 04/18/21 06:36 Dose: 100 mcg Documented by: Loratadine (Loratadine 10 Mg Tab) 10 mg PO QAM [facility] Stop: 05/17/21 08:59 Last Admin: 04/18/21 08:25 Dose: 10 mg Documented by: Losartan Potassium (Losartan Potassium 50 Mg Tab) 100 mg PO QAM [facility] Stop: 05/17/21 08:59 Last Admin: 04/18/21 08:24 Dose: 100 mg Documented by: Magnesium Hydroxide (Magnesium Hydroxide Susp 30 Ml Udc) 30 ml PO Q12H PRN PRN Reason: Constipation Stop: 05/16/21 16:43 Montelukast Sodium (Montelukast Sodium 10 Mg Tablet) 10 mg PO HS [facility] Stop: 05/16/21 20:59 Last Admin: 04/17/21 20:13 Dose: 10 mg Documented by: Ondansetron HCl (Ondansetron Inj 2 Mg/Ml 2 Ml Vial) 4 mg IV Q6H PRN PRN Reason: Nausea Stop: 05/16/21 16:43 Pantoprazole Sodium (Pantoprazole 40 Mg Tab) 40 mg PO DAILYBB [facility] Stop: 05/17/21 06:29 Last Admin: 04/18/21 06:36 Dose: 40 mg Documented by: Polyethylene Glycol (Polyethylene (Miralax) 17 Gm Pack) 17 gm PO DAILY PRN PRN Reason: Constipation Stop: 05/16/21 16:43 Sertraline HCl (Sertraline Hcl 100 Mg Tablet) 100 mg PO QAM [facility] Stop: 05/17/21 08:59 Last Admin: 04/18/21 08:25 Dose: 100 mg Documented by: Umeclidinium/Vilanterol (Umeclidinium/Vilanterol 62.5/25mcg 7 Puffs/Inhaler) 1 puffs INH DAILY [facility] Stop: 05/17/21 08:59 Last Admin: 04/18/21 08:31 Dose: 1 puffs Documented by: (1) HTN (hypertension) Hypertension type: essential hypertension Qualified Code(s): I10 - Essential (primary) hypertension
[2021-04-18] MEDS ORDERED: COUGH DROP (SUGAR FREE) LOZ 24 LOZ/1 BOX BUCCAL ONE (20:31)
[2021-04-18] MEDS: GABAPENTIN 100 MG CAP PO SCH (20:33)
[2021-04-18] MEDS: MONTELUKAST SODIUM 10 MG TABLET PO SCH (20:33)
[2021-04-18] MEDS: busPIRone 15 MG TAB PO SCH (20:33)
[2021-04-18] MEDS: ENOXAPARIN INJ 40 MG/0.4 ML SYR SQ SCH (20:34)
[2021-04-19] MEDS: PANTOprazole 40 MG TAB PO SCH (05:58)
[2021-04-19] MEDS: LEVOTHYROXINE SODIUM 100 MCG TABLET PO SCH (05:58)
[2021-04-19] MEDS: ALBUT/IPRATROP 3MG/0.5MG NEB 3 ML VIAL NEB SCH ×3 (07:10→14:25)
[2021-04-19] MEDS: SERTRALINE HCL 100 MG TABLET PO SCH (08:57)
[2021-04-19] MEDS: busPIRone 7.5 MG TAB PO SCH (08:57)
[2021-04-19] MEDS: AMOXICILLIN/CLAVULANATE 875 MG TAB PO SCH (08:57)
[2021-04-19] MEDS: DOCUSATE SODIUM 100 MG CAP PO SCH (08:57)
[2021-04-19] MEDS: LORATADINE 10 MG TAB PO SCH (08:57)
[2021-04-19] MEDS: guaiFENesin 600 MG TABCR PO SCH (08:57)
[2021-04-19] MEDS: BENZONATATE 100 MG CAPSULE PO SCH ×2 (08:57→13:30)
[2021-04-19] MEDS: FUROSEMIDE 20 MG TAB PO SCH (08:57)
[2021-04-19] MEDS: AZELASTINE HCL 0.1% NASAL 200 SPRAYS/27,400 MCG BTL SCH (08:58)
[2021-04-19] MEDS: ASPIRIN 81 MG ECTAB PO SCH (08:58)
[2021-04-19] MEDS: DONEPEZIL HCL 5 MG TAB PO SCH (08:58)
[2021-04-19] MEDS: methylPREDNISolone 40 MG in SYRINGE 0 ML IV SCH (08:58)
[2021-04-19] MEDS: dilTIAZem HCL 180 MG CAPCR PO SCH (08:58)
[2021-04-19] MEDS: LOSARTAN POTASSIUM 50 MG TAB PO SCH (08:58)
[2021-04-19] MEDS: UMECLIDINIUM/VILANTEROL 62.5/25MCG 7 PUFFS/INHALER INH SCH (08:58)
[2021-04-19] MEDS: HYDROcodone/HOMATROPINE SYRUP 5MG/1.5MG 5ML UDP PO PRN (10:24)
--- NOTE | 2021-04-19 11:34 | Hospitalist Progress Note ---
Date of Service April 19, 2021 Assessment & Plan (1) Acute on chronic respiratory failure with hypoxia: Plan: Secondary to COPD exacerbation Doubt any infective etiology Has been on Solu-Medrol and bronchodilators Remains stable and complains of frequent coughs Requiring 2 L oxygen to maintain saturation wheezes at her baseline She is definitely back to her baseline and wants to go home (2) COPD exacerbation: Plan: Patient recently completed 5-day course of 750 mg Levaquin, procalcitonin negative, no indication for antibiotic at this time Follow blood culture and sputum culture-negative [place] [facility] [place], low threshold for consult Continue Anoro, montelukast, Claritin, azelastine nasal spray Keep oxygen saturations 88 to 92% Doubt any infection We will continue nebulized bronchodilator and steroid Adequate cough suppressant has been given Chest PT Will continue current management and probably to a 2 steps tomorrow before discharge She has had physical therapy today and did pretty well We will have to do steps O2 saturation test before discharging this afternoon Possible sinusitis Complains of pain in the right maxillary sinus area Tenderness on palpation We will administer Augmentin Sinus pain and symptoms are improving We will continue antibiotic for 5 more days (3) Dysphagia: Plan: No acute problem (4) BERNA (obstructive sleep apnea): Plan: We will advised to use her own CPAP which she is noncompliant Continue supplemental oxygen (5) Mild cognitive impairment: (6) HTN (hypertension): Plan: Blood pressure seems to be the lower side We will continue current medications (7) Hypokalemia: Plan: This is a 70-year-old female who has a significant past medical history of chronic respiratory failure on 2 L of O2, COPD, interstitial lung disease with pulmonary fibrosis, tobacco abuse history, BERNA noncompliant with CPAP, CAD, HTN, chronic diastolic CHF, HLD, hypothyroidism, dementia, CKD stage III, GERD who presents to ED secondary to worsening shortness of breath x2 to 3 weeks. Acute on chronic respiratory failure with hypoxia COPD exacerbation Interstitial lung disease with idiopathic pulmonary fibrosis Admit to telemetry IV Solu-Medrol 40 mg every 8 starting tomorrow 04/17 Aggressive pulmonary toilet with DuoNeb 4 times daily, flutter valve, incentive spirometer Tessalon Perles and Mucinex ordered Hypokalemia 3.4, replace Monitor Hypertension Continue diltiazem, losartan, Lasix Clonidine as needed, patient states that she takes clonidine as needed when on steroids at home due to elevated blood pressure BERNA Noncompliant with CPAP, continue supplemental oxygen Mild cognitive impairment Continue Aricept Hypothyroidism Continue levothyroxine Dysphagia/history of aspiration Has seen speech therapy in the past Aspiration precautions, easy to chew diet DVT prophylaxis Subcu Lovenox Dispo: Admit to PCU, lives alone at home, will need PT/OT eval's prior to discharge disposition PCP: Zackery DNR/DNI Will be discharged home this afternoon Admission and Anticipated Discharge Date Admission Date: April 16, 2021 Subjective 04/17/2021 The patient was seen and examined in telemetry unit Has been feeling a little better since admission Still has cough with shortness of breath at rest Complains to have sinus pain and pressure especially on the right side 04/18/2021 The patient was seen and examined in telemetry unit She remains short of breath with cough Clinically a little better Denies any fever and no chills 04/19/2021 The patient was seen and examined in telemetry unit She has been feeling much better though has significant cough Has had physical therapy and it pretty well We will get to do steps O2 saturation test before discharging home this afternoon Review of Systems Review of Systems: All systems reviewed and are unremarkable except as noted below Respiratory: Shortness of breath with cough Physical Exam Physical Exam: Lying in the bed without any acute distress except some cough and shortness of breath Constitutional: well developed, well nourished, + ill appearing and + obese Eyes: PERRL, conjunctivae normal, anicteric sclerae ENMT: external ear and nose normal, oropharynx normal Neck: trachea midline, no thyromegaly Respiratory: + respiratory distress and + cough Auscultation: + diminished lung sounds; no crackles and no wheezes Cardiovascular: Rate/Rhythm: regular rate and regular rhythm; not tachycardic Heart Sounds: normal S1 and normal S2; no murmur Gastrointestinal (Abdomen): Inspection/Auscultation: normal bowel sounds; abdomen not distended Percussion/Palpation: abdomen soft; abdomen nontender Musculoskeletal: No acute arthritis in any joint Neurologic: Alert, awake and oriented x3. No focal sensory or no motor deficit appreciated Results & Data Results & Data ([facility]) Vital Signs (Past 12 Hours) Vital Signs Temp Pulse Pulse Resp BP Pulse Ox 04/19/21 10:49 81 18 95 04/19/21 08:00 63 04/19/21 07:54 36.8 C 107 H 22 149/77 H 91 04/19/21 07:10 73 18 94 04/19/21 03:25 36.9 C 80 20 166/77 H 93 Medications Administered Current Inpatient Medications Acetaminophen (Acetaminophen 325 Mg Tab) 650 mg PO Q4H PRN PRN Reason: Pain or Fever Stop: 05/16/21 16:43 Last Admin: 04/17/21 22:10 Dose: 650 mg Documented by: Al Hydrox/Mg Hydrox/Simethicone (Aluminum/Magnesium Susp 30 Ml Udc) 15 ml PO Q4H PRN PRN Reason: Dyspepsia Stop: 05/16/21 16:43 Albuterol (Albut/Ipratrop 3mg/0.5mg Neb 3 Ml Vial) 3 ml NEB QIDR [facility] Stop: 05/16/21 18:59 Last Admin: 04/19/21 10:47 Dose: 3 ml Documented by: Amoxicillin/Clavulanate Potassium (Amoxicillin/Clavulanate 875 Mg Tab) 1 tab PO BIDM [facility] Stop: 04/24/21 16:59 Last Admin: 04/19/21 08:57 Dose: 1 tab Documented by: Aspirin (Aspirin 81 Mg Ectab) 81 mg PO QAM [facility] Stop: 05/17/21 08:59 Last Admin: 04/19/21 08:58 Dose: 81 mg Documented by: Azelastine HCl (Azelastine Hcl 0.1% Nasal 200 Sprays/27,400 Mcg Btl) 1 sprays NA BID [facility] Stop: 05/16/21 20:59 Last Admin: 04/19/21 08:58 Dose: 1 sprays Documented by: Benzonatate (Benzonatate 100 Mg Capsule) 100 mg PO TID [facility] Stop: 05/16/21 20:59 Last Admin: 04/19/21 08:57 Dose: 100 mg Documented by: Buspirone HCl (Buspirone 15 Mg Tab) 15 mg PO HS [facility] Stop: 05/16/21 20:59 Last Admin: 04/18/21 20:33 Dose: 15 mg Documented by: Buspirone HCl (Buspirone 7.5 Mg Tab) 7.5 mg PO QAM [facility] Stop: 05/17/21 08:59 Last Admin: 04/19/21 08:57 Dose: 7.5 mg Documented by: Clonidine HCl (Clonidine Hcl 0.1 Mg Tab) 0.1 mg PO BID@0800,2000 PRN PRN Reason: HTN Stop: 05/16/21 19:59 Diltiazem HCl (Diltiazem Hcl 180 Mg Capcr) 180 mg PO QAM [facility] Stop: 05/17/21 08:59 Last Admin: 04/19/21 08:58 Dose: 180 mg Documented by: Docusate Sodium (Docusate Sodium 100 Mg Cap) 100 mg PO BID [facility] Stop: 05/16/21 20:59 Last Admin: 04/19/21 08:57 Dose: 100 mg Documented by: Donepezil HCl (Donepezil Hcl 5 Mg Tab) 5 mg PO QAM [facility] Stop: 05/17/21 08:59 Last Admin: 04/19/21 08:58 Dose: 5 mg Documented by: Enoxaparin Sodium (Enoxaparin Inj 40 Mg/0.4 Ml Syr) 40 mg SQ Q24H [facility] Stop: 05/16/21 21:59 Last Admin: 04/18/21 20:34 Dose: 40 mg Documented by: Furosemide (Furosemide 20 Mg Tab) 20 mg PO DAILY [facility] Stop: 05/17/21 08:59 Last Admin: 04/19/21 08:57 Dose: 20 mg Documented by: Gabapentin (Gabapentin 100 Mg Cap) 100 mg PO HS [facility] Stop: 05/16/21 20:59 Last Admin: 04/18/21 20:33 Dose: 100 mg Documented by: Guaifenesin (Guaifenesin 600 Mg Tabcr) 600 mg PO Q12 [facility] Stop: 05/16/21 18:19 Last Admin: 04/19/21 08:57 Dose: 600 mg Documented by: Hydrocodone Bit/Homatropine Methylb (Hydrocodone/Homatropine Syrup 5mg/1.5mg 5ml Udp) 5 ml PO Q6H PRN PRN Reason: Cough Stop: 04/30/21 20:48 Last Admin: 04/19/21 10:24 Dose: 5 ml Documented by: Methylprednisolone 40 mg/ (Syringe) 0.64 mls @ 1.5 mls/min IV Q8H [facility] Stop: 05/17/21 07:59 Last Admin: 04/19/21 08:58 Dose: 1.5 mls/min Documented by: Levothyroxine Sodium (Levothyroxine Sodium 100 Mcg Tablet) 100 mcg PO DAILYBB [facility] Stop: 05/17/21 06:29 Last Admin: 04/19/21 05:58 Dose: 100 mcg Documented by: Loratadine (Loratadine 10 Mg Tab) 10 mg PO QAM [facility] Stop: 05/17/21 08:59 Last Admin: 04/19/21 08:57 Dose: 10 mg Documented by: Losartan Potassium (Losartan Potassium 50 Mg Tab) 100 mg PO QAM [facility] Stop: 05/17/21 08:59 Last Admin: 04/19/21 08:58 Dose: 100 mg Documented by: Magnesium Hydroxide (Magnesium Hydroxide Susp 30 Ml Udc) 30 ml PO Q12H PRN PRN Reason: Constipation Stop: 05/16/21 16:43 Montelukast Sodium (Montelukast Sodium 10 Mg Tablet) 10 mg PO HS [facility] Stop: 05/16/21 20:59 Last Admin: 04/18/21 20:33 Dose: 10 mg Documented by: Ondansetron HCl (Ondansetron Inj 2 Mg/Ml 2 Ml Vial) 4 mg IV Q6H PRN PRN Reason: Nausea Stop: 05/16/21 16:43 Pantoprazole Sodium (Pantoprazole 40 Mg Tab) [facility]: 05/17/21 06:29 Last Admin: 04/19/21 05:58 Dose: 40 mg Documented by: Polyethylene Glycol (Polyethylene (Miralax) 17 Gm Pack) 17 gm PO DAILY PRN PRN Reason: Constipation Stop: 05/16/21 16:43 Sertraline HCl (Sertraline Hcl 100 Mg Tablet) 100 mg PO QAM [facility] Stop: 05/17/21 08:59 Last Admin: 04/19/21 08:57 Dose: 100 mg Documented by: Umeclidinium/Vilanterol (Umeclidinium/Vilanterol 62.5/25mcg 7 Puffs/Inhaler) 1 puffs INH DAILY [facility] Stop: 05/17/21 08:59 Last Admin: 04/19/21 08:58 Dose: 1 puffs Documented by: (1) HTN (hypertension) Hypertension type: essential hypertension Qualified Code(s): I10 - Essential (primary) hypertension
--- NOTE | 2021-04-19 15:23 | Discharge Summary ---
Date of Service April 19, 2021 Admission HPI Per Admitting Provider This is a 70-year-old female who has a significant past medical history of chronic respiratory failure on 2 L of O2, COPD, interstitial lung disease with pulmonary fibrosis, tobacco abuse history, BERNA noncompliant with CPAP, CAD, HTN, chronic diastolic CHF, HLD, hypothyroidism, dementia, CKD stage III, GERD who presents to ED secondary to worsening shortness of breath x2 to 3 weeks. She is a ising at home patient. She notes her symptoms started approximately 3 weeks ago. She complains of increasingly more short of breath with exertion requiring increased oxygen to 3 to 4 L. She further complains of increasing productive cough of occasional yellow or brown sputum. Her cough is also occasionally hacking. She has been wheezing more and requiring increased use of her albuterol inhaler. She typically uses her DuoNeb 3 times a day and is also been requiring albuterol inhaler up to 4 times a day. She follows with [facility] [place]monology. She has been compliant with her inhalers. At home she has been us ing Mucinex with minimal relief. [facility] at home also prescribed her to prednisone packs as well as she completed a 5-day course of Levaquin 750 mg 1 week ago. She denies feeling feverish, chills, sweats, lightheadedness, dizziness, shortness of breath at rest, chest pain, nausea, vomiting, abdominal pain, change in bowel or urinary habits. She states typically she is constipated and requires the use of MiraLAX and occasional Colace. She does complain of chest tightness with deep breathing. In ED patient remained hemodynamically stable but she did require increased oxygen requirement at 3 L. She had a mild elevated temp at 38.1. Her CBC and CMP was generally unremarkable except for mildly low potassium at 3.4 and WBC at 11.35. Her procalcitonin was WNL. Her lactate was 1.8. Chest CTA was negative for PE or acute consolidation but did reveal emphysematous changes as well as septal thickening. She received 10 mg IV dexamethasone as well as an hour-long nebulizer treatment in ED. She does feel mildly improved. Admission Exam Per Admitting Provider Physical Exam: Constitutional: WD/WN, vitals as above, NAD, sitting up in bed, pleasant, conversing easily Head: Normocephalic, Atraumatic Eyes: PERRL, conjunctivae normal, anicteric sclerae ENMT: external ear and nose normal, oropharynx normal Neck: trachea midline, no thyromegaly normal visual inspection Respiratory: normal respiratory effort, lungs clear to auscultation, no wheeze, rales, rhonchi. Normal insp/exp effort, no accessory muscle use Cardiovascular: RRR, no murmur, no edema Vessels: no JVD or carotid bruit Chest: normal inspection of chest Abdomen: normal bowel sounds, soft, nontender, no hepatosplenomegaly Musculoskeletal: no cyanosis or clubbing, extremities motor strength 5/5 Skin: no rashes, warm and dry normal turgor Neurologic: PERRL, EOMI, accommodation nl, no face palsy, no dysarthria CN's II-XI intact bilaterally and moves all extremities Psychiatric: A+Ox3, euthymic affect Lymphatic: no cervical or axillary lymphadenopathy : deferred Principal Diagnosis Acute on chronic respiratory failure with hypoxia, COPD exacerbation, acute maxillary sinusitis, BERNA Discharge Exam Constitutional well developed, well nourished, + ill appearing and + obese Eyes PERRL, conjunctivae normal, anicteric sclerae ENMT external ear and nose normal, oropharynx normal Neck trachea midline, no thyromegaly Respiratory + respiratory distress and + cough Auscultation: + diminished lung sounds; no crackles and no wheezes Cardiovascular Rate/Rhythm: regular rate and regular rhythm; not tachycardic Heart Sounds: normal S1 and normal S2; no murmur Gastrointestinal (Abdomen) Inspection/Auscultation: normal bowel sounds; abdomen not distended Percussion/Palpation: abdomen soft; abdomen nontender Discharge Data Allergies Allergy/AdvReac Type Severity Reaction Status Date / Time baclofen Allergy Severe Unknown Verified 03/17/21 14:05 cefuroxime Allergy Severe Hives and Verified 03/17/21 14:05 Dizziness hydralazine Allergy Intermediate joint pain Verified 03/17/21 14:05 tetracycline Allergy Mild RASH Verified 03/17/21 14:05 budesonide AdvReac Severe caused her Verified 03/17/21 14:05 to cough constantly amlodipine AdvReac Mild Edema. Verified 03/17/21 14:05 Consultations 04/16/21 14:39 ED Decision to Admit Stat Ordered Studies 04/16/21 12:59 CT angio chest PE protocol Stat Hospital Course (1) Acute on chronic respiratory failure with hypoxia: Secondary to COPD exacerbation Doubt any infective etiology Has been on Solu-Medrol and bronchodilators Remains stable and complains of frequent coughs Requiring 2 L oxygen to maintain saturation wheezes at her baseline She is definitely back to her baseline and wants to go home (2) COPD exacerbation: Patient recently completed 5-day course of 750 mg Levaquin, procalcitonin negative, no indication for antibiotic at this time Follow blood culture and sputum culture-negative Follows [facility] [place] pulmonology, low threshold for consult Continue Anoro, montelukast, Claritin, azelastine nasal spray Keep oxygen saturations 88 to 92% Doubt any infection We will continue nebulized bronchodilator and steroid Adequate cough suppressant has been given Chest PT Will continue current management and probably to a 2 steps tomorrow before discharge She has had physical therapy today and did pretty well We will have to do steps O2 saturation test before discharging this afternoon Possible sinusitis Complains of pain in the right maxillary sinus area Tenderness on palpation We will administer Augmentin Sinus pain and symptoms are improving We will continue antibiotic for 5 more days (3) Dysphagia: No acute problem (4) BERNA (obstructive sleep apnea): We will advised to use her own CPAP which she is noncompliant Continue supplemental oxygen (5) Mild cognitive impairment: (6) HTN (hypertension): Blood pressure seems to be the lower side We will continue current medications (7) Hypokalemia: This is a 70-year-old female who has a significant past medical history of chronic respiratory failure on 2 L of O2, COPD, interstitial lung disease with pulmonary fibrosis, tobacco abuse history, BERNA noncompliant with CPAP, CAD, HTN, chronic diastolic CHF, HLD, hypothyroidism, dementia, CKD stage III, GERD who presents to ED secondary to worsening shortness of breath x2 to 3 weeks. Acute on chronic respiratory failure with hypoxia COPD exacerbation Interstitial lung disease with idiopathic pulmonary fibrosis Admit to telemetry IV Solu-Medrol 40 mg every 8 starting tomorrow 04/17 Aggressive pulmonary toilet with DuoNeb 4 times daily, flutter valve, incentive spirometer Tessalon Perles and Mucinex ordered Hypokalemia 3.4, replace Monitor Hypertension Continue diltiazem, losartan, Lasix Clonidine as needed, patient states that she takes clonidine as needed when on steroids at home due to elevated blood pressure BERNA Noncompliant with CPAP, continue supplemental oxygen Mild cognitive impairment Continue Aricept Hypothyroidism Continue levothyroxine Dysphagia/history of aspiration Has seen speech therapy in the past Aspiration precautions, easy to chew diet DVT prophylaxis Subcu Lovenox Dispo: Admit to PCU, lives alone at home, will need PT/OT eval's prior to discharge disposition PCP: Zackery DNR/DNI Will be discharged home this afternoon Total Time Total Time Spent Total Time Spent (In Minutes): 35 minutes Discharge Plan Discharge Items Patient Disposition: Home - Self-Care Reason For Visit: COPD EXACERBATION, ACUTE ON CHRONIC RESP FAILURE Discharge Diagnosis: Acute on chronic respiratory failure with hypoxia, COPD exacerbation, acute maxillary sinusitis, BERNA Activity: Resume your previous activity Non-emergency contact: Primary Care Provider Call non-emergency contact if: you have any medication questions and your symptoms worsen Follow-up/Referrals: Cristina Vizcarra MD [Primary Care Provider] - (Your doctor's office will call you with an appointment within 1 week. 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) Diet: Heart Healthy Diet Texture: Easy to Chew Addtl Attending Provider Instructions: Please take precautions to avoid fall Please avoid any strenuous activity Finish your course of antibiotic Finish the course of steroid/prednisone 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s with your health care providers Use your oxygen as advised-2 L at rest and up to 4 L with ambulation Pending Studies at Discharge: No Stand-Alone Forms: My [facility] [place], Smoking Cessation Medications and DC Order Prescriptions: New amoxicillin-pot clavulanate [Augmentin] 875-125 mg Tablet 1 tab PO BIDM Qty: 10 RF: 0 benzonatate [Tessalon Perles] 100 mg Capsule 100 mg PO TID Qty: 30 RF: 0 guaifenesin [Mucinex] 600 mg Tablet Extended Release 12hr 600 mg PO Q12 Qty: 30 RF: 0 prednisone 20 mg tablet 20 mg PO UD Qty: 32 RF: 0 Lactinex 1 million cell tablet,chewable 1 tab PO BID Qty: 30 RF: 0 Continued (DME) CPAP Machine Misc See Rx Instructions .ROUTE .MEDSUPPLY Qty: 1 RF: 0 sertraline [Zoloft] 100 mg tablet 100 mg PO QAM Qty: 30 RF: 3 (DME) Portable Oxygen Misc See Rx Instructions .MEDSUPPLY Qty: 1 RF: 0 aspirin [Lo-Dose Aspirin] 81 mg tablet,delayed release (DR/EC) 81 mg PO QAM Qty: 30 RF: 0 guaifenesin [Mucinex] 600 mg tablet extended release 12hr 600 mg PO BID PRN (Reason: cough and congestion) Qty: 60 RF: 2 clonidine HCl 0.1 mg tablet 0.1 mg PO BID@0800,2000 PRN (Reason: HTN) RF: 0 albuterol sulfate [Ventolin HFA] 90 mcg/actuation HFA aerosol inhaler 2 puff INH Q4H PRN (Reason: Wheezing) Qty: 18 RF: 3 ipratropium-albuterol 0.5 mg-3 mg(2.5 mg base)/3 mL solution for nebulization 3 ml INH Q8H PRN (Reason: shortness of breath or wheezing) Qty: 270 RF: 3 Anoro Ellipta 62.5-25 mcg/actuation blister with device 1 inh inhalation DAILY Qty: 60 RF: 3 diltiazem HCl [Cartia XT] 180 mg Capsule,Extended Release 24hr 180 mg PO QAM RF: 0 montelukast 10 mg tablet 10 mg PO HS RF: 0 furosemide [Lasix] 20 mg tablet 20 mg PO DAILY RF: 0 levothyroxine 100 mcg Tablet 100 mcg PO QAM RF: 0 pantoprazole [Protonix] 40 mg tablet,delayed release (DR/EC) 40 mg PO DAILYBB RF: 0 loratadine [Claritin] 10 mg Tablet 10 mg PO QAM RF: 0 buspirone 15 mg tablet 15 mg PO HS RF: 0 losartan [Cozaar] 100 mg tablet 100 mg PO QAM RF: 0 donepezil [Aricept] 5 mg tablet 5 mg PO QAM RF: 0 buspirone 15 mg tablet 7.5 mg PO QAM RF: 0 gabapentin 100 mg capsule 100 mg PO HS RF: 0 polyethylene glycol 3350 [Miralax] 17 gram Powder In Packet 17 g PO DAILY PRN (Reason: constipation) Qty: 30 RF: 0 azelastine 137 mcg (0.1 %) Aerosol,[place] 1 spray INTRANASAL BID RF: 0 docusate sodium 100 mg capsule 100 mg PO BID RF: 0 Discontinued prednisone 10 mg tablet See Rx Instructions PO DAILY PRN (Reason: COPD exac) RF: 0 Discharge Orders: Discharge Order (Routine); Ordered 04/19/21 Ordered By: Sirena Gordon Admission Data Admit Date/Time: 04/16/21 14:50 Attending Provider: Sirena Gordon Admit Provider: Sirena Gordon Primary Care Provider: Cristina Vizcarra Other Providers: Sirena Gordon Other Interventions: Discharge Summary Assessment (RN) Last Done: 04/19/21 13:31
== END 2021-04-19 14:35 | disposition home or self-care (01) | DRG 189 ==
LOC: ED 12:06 → 2S 14:50

== ENCOUNTER 2022-08-22 05:06 | Inpatient (IN) ==
[2022-08-22] MEDS ORDERED: SODIUM CHLORIDE 0.9% 250 ML IV ONE (05:20)
[2022-08-22] MEDS ORDERED: MoRPHine SULFATE 4 MG/ML 1 ML CARP\\VIAL IV STA (05:20)
--- NOTE | 2022-08-22 05:22 | Emergency Department Note ---
Impression & Plan Chest pain ADMIT ED Provider Note HPI: The patient is a 71-year-old female with history of pulmonary fibrosis, on 3 L nasal cannula oxygen at baseline, presents to the emergency department with a chief complaint of left-sided abdominal pain for the past week. Patient states that her pain acutely worsened overnight, states that she has some nausea and epigastric pain as well. Patient states throughout the week she is also had intermittent discomfort in her chest that does not seem to follow any particular pattern. Patient denies any shortness of breath. On arrival to the ED, the patient is hemodynamically stable on her baseline nasal cannula oxygen. She is in no acute distress on my initial assessment otherwise. On arrival here to the ED the patient is hemodynamically stable, she is noted to have a fever at 38.5 Fahrenheit on arrival. ROS: - Per HPI *Outpatient medications and allergy history reviewed. *Pertinent external medical records reviewed. 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 Shortly after arrival IV was established, lab work obtained, patient was placed on director cardiac, noted to have a fever on arrival therefore blood cultures also ordered. Bio fire panel was sent and is negative. Chest x-ray does not show any obvious pneumonia. CT imaging of the abdomen pelvis was obtained that does not show any evidence of any acute surgical process. No evidence of colitis, no evidence of small bowel obstruction. Unclear source at this time for the patient's fever, she states she has had some episodes of diarrhea over the past 24 hours, I suspect she may have a viral gastroenteritis as her urinalysis does not show any evidence of infection either. Blood cultures were drawn. Her high-sensitivity troponin level was mildly elevated at 24. I do not see any acute ischemic changes on her EKG however she is somewhat uncomfortable appearing on my reassessment and she is having episodes of sweating. Given the patient's age and comorbidities I think she would benefit from admission with trending of troponin levels and symptomatic care. Patient is in agreement to this. [facility] hospitalist service was consulted for admission and the patient was placed for admission in improved condition. Fever did downtrend to 36.9 while here in the ED, oxygenation remained stable on her baseline 3 L nasal cannula oxygen prior to admission. Consultants: Hospitalist service, [facility] Disposition discussion held by myself with: Patient Diagnosis: 1. Abdominal pain, acute, left-sided 2. Chest pain, intermittent, acute 3. Epigastric pain, acute 4. Fever of unknown origin 5. Diarrhea, acute 6. Elevated high-sensitivity troponin level Disposition: Admission Yomi Giraldo DO Emergency Medicine Past Med/Surg History Medical History (Updated 08/22/22 @ 07:36 by Yomi Giraldo DO) Anxiety and depression Axillary lymphadenopathy Chronic back pain Chronic respiratory failure with hypoxia CKD (chronic kidney disease), stage III stage 3. follows with pcp. COPD (chronic obstructive pulmonary disease) Degenerative disc disease GERD (gastroesophageal reflux disease) History of breast cancer bilateral HTN (hypertension) Hx of duodenal ulcer Hyperlipidemia Hypothyroidism ILD (interstitial lung disease) Mild cognitive impairment On home oxygen therapy 2lpm via n/c continuous BERNA (obstructive sleep apnea) cpap Osteoarthritis Prediabetes Pulmonary fibrosis Restless legs syndrome hx SCC (squamous cell carcinoma) face Surgical History History of bilateral tubal ligation History of bronchoscopy History of cardiac cath no stents. (~1979) History of colonoscopy History of esophagogastroduodenoscopy (EGD) History of lung surgery thorascopy for lung biopsy S/P mastectomy, bilateral lymph node removal Left arm S/P thyroidectomy partial (r/t nodule) Family History Sister Myocardial infarction Sister Stroke Other No family history of adverse response to anesthesia Social History (Updated 04/16/21 @ 15:29 by Beverly Gudino PA-C) Smoking Status: Never smoker Tobacco Type: Cigarettes Cigarettes Per Day: 50 pack yr hx; Second Hand Exposure: No; Hx Alcohol Use: No Hx Substance Use: No Preferred Language: Romanian Communication Ability: Effective 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 Beliefs That Will Affect Care: None marital status: Current Living Situation: Alone Current Living Situation Comment: Senior apartment building How many Children do You have: 2 Feels Safe at Home: Yes Assistive Devices: Oxygen - Continuous Allergies Allergies Allergy/AdvReac Type Severity Reaction Status Date / Time baclofen Allergy Severe Unknown Verified 05/20/21 09:47 cefuroxime Allergy Severe Hives and Verified 05/20/21 09:47 Dizziness hydralazine Allergy Intermediate joint pain Verified 05/20/21 09:47 tetracycline Allergy Mild RASH Verified 05/20/21 09:47 budesonide AdvReac Severe caused her Verified 05/20/21 09:47 to cough constantly amlodipine AdvReac Mild Edema. Verified 05/20/21 09:47 Home Meds Home Medications Medication Instructions Recorded Confirmed aspirin 81 mg tablet,delayed 81 mg PO QAM #30 tabs 03/09/19 05/20/21 release (Lo-Dose Aspirin) buspirone 15 mg tablet 15 mg PO HS Anxiety 07/29/19 05/20/21 loratadine 10 mg tablet (Claritin) 10 mg PO QAM 07/29/19 05/20/21 losartan 100 mg tablet (Cozaar) 100 mg PO QAM 07/29/19 05/20/21 pantoprazole 40 mg tablet,delayed 40 mg PO DAILYBB 07/29/19 05/20/21 release (Protonix) diltiazem HCl 180 mg 180 mg PO QAM 08/12/19 05/20/21 capsule,extended release 24 hr (Cartia XT) montelukast 10 mg tablet 10 mg PO HS 12/06/19 05/20/21 furosemide 20 mg tablet (Lasix) 20 mg PO DAILY 12/07/19 05/20/21 levothyroxine 100 mcg tablet 100 mcg PO QAM 01/23/20 05/20/21 clonidine HCl 0.1 mg tablet 0.1 mg PO BID@0800,2000 PRN HTN 05/13/20 05/20/21 buspirone 15 mg tablet 7.5 mg PO QAM 01/16/21 05/20/21 gabapentin 100 mg capsule 100 mg PO HS 01/16/21 05/20/21 donepezil 5 mg tablet (Aricept) 5 mg PO QAM 01/20/21 05/20/21 azelastine 137 mcg (0.1 %) nasal 1 spray intranasal BID 04/16/21 05/20/21 spray aerosol docusate sodium 100 mg capsule 100 mg PO BID 04/16/21 05/20/21 Previous Rx's Medication Instructions Recorded CPAP Machine #1 ea 08/06/19 sertraline 100 mg tablet (Zoloft) 100 mg PO QAM #30 tabs 10/15/19 guaifenesin 600 mg tablet, 600 mg PO BID PRN cough and 01/09/20 extended release 12 hr (Mucinex) congestion #60 tabs Portable Oxygen #1 ea 04/04/20 polyethylene glycol 3350 17 gram 17 g PO DAILY PRN constipation #30 01/19/21 oral powder packet (Miralax) ea albuterol sulfate 90 mcg/actuation 2 puff inhalation Q4H PRN Wheezing 03/17/21 aerosol inhaler (Ventolin HFA) #18 grams ipratropium 0.5 mg-albuterol 3 mg 3 ml inhalation Q8H PRN shortness 03/17/21 (2.5 mg base)/3 mL nebulization of breath or wheezing #270 mL soln umeclidinium 62.5 mcg-vilanterol 1 inh inhalation DAILY #60 ea 03/17/21 25 mcg/actuation powdr for inhalation (Anoro Ellipta) Lactobacillus acidoph-L.bulgaricus 1 tab PO BID #30 tabs 04/19/21 1 million cell chewable tablet (Lactinex) benzonatate 100 mg capsule 100 mg PO TID #30 caps 04/19/21 (Tessalon Perles) guaifenesin 600 mg tablet, 600 mg PO Q12 #30 tabs 04/19/21 extended release 12 hr (Mucinex) Results & Data (ED) Vital Signs Vital Signs - 24 hr 08/22/22 05:10 08/22/22 05:36 08/22/22 05:44 Temperature 38.5 C H Temperature Source Oral Pulse Rate 81 81 Pulse Rate [Apical] 81 Pulse Rate from SpO2 Sensor Pulse Rhythm Regular Regular Pulse Rhythm [Apical] Regular Pulse Strength Normal Pulse Strength [Apical] Normal Respiratory Rate 21 22 18 Respiratory Effort / Characteristics Non-Labored Spontaneous Non-Labored Spontaneous Respiratory Depth Normal Normal Respiratory Pattern Regular Regular Blood Pressure 147/77 H Blood Pressure [Right Arm] 152/65 H Blood Pressure Mean 100 Blood Pressure Mean [Right Arm] 94 Blood Pressure Position Lying Blood Pressure Position [Right Arm] Semi-fowlers Pulse Oximetry 98 96 95 Oxygen Delivery Method Nasal Cannula Room Air Room Air Oxygen Flow Rate 4 Sepsis Recent Fever Within 48 Hours Yes Sepsis New/Unexplained Change in Mental Status N/A Sepsis Action Taken by Nursing Physician Notified 08/22/22 05:13 08/22/22 05:12 08/22/22 05:20 Temperature Temperature Source Pulse Rate 83 82 89 Pulse Rate [Apical] Pulse Rate from SpO2 Sensor 81 88 Pulse Rhythm Pulse Rhythm [Apical] Pulse Strength Pulse Strength [Apical] Respiratory Rate 19 20 Respiratory Effort / Characteristics Respiratory Depth Respiratory Pattern Blood Pressure Blood Pressure [Right Arm] Blood Pressure Mean Blood Pressure Mean [Right Arm] Blood Pressure Position Blood Pressure Position [Right Arm] Pulse Oximetry 99 96 Oxygen Delivery Method Oxygen Flow Rate Sepsis Recent Fever Within 48 Hours Sepsis New/Unexplained Change in Mental Status Sepsis Action Taken by Nursing 08/22/22 05:30 08/22/22 05:40 08/22/22 05:43 Temperature Temperature Source Pulse Rate 83 84 Pulse Rate [Apical] Pulse Rate from SpO2 Sensor 83 84 Pulse Rhythm Pulse Rhythm [Apical] Pulse Strength Pulse Strength [Apical] Respiratory Rate 18 23 Respiratory Effort / Characteristics Respiratory Depth Respiratory Pattern Blood Pressure 152/65 H Blood Pressure [Right Arm] Blood Pressure Mean 94 Blood Pressure Mean [Right Arm] Blood Pressure Position Blood Pressure Position [Right Arm] Pulse Oximetry 94 94 Oxygen Delivery Method Oxygen Flow Rate Sepsis Recent Fever Within 48 Hours Sepsis New/Unexplained Change in Mental Status Sepsis Action Taken by Nursing 08/22/22 05:43 08/22/22 05:50 08/22/22 06:00 Temperature Temperature Source Pulse Rate 81 79 90 Pulse Rate [Apical] Pulse Rate from SpO2 Sensor 83 80 89 Pulse Rhythm Pulse Rhythm [Apical] Pulse Strength Pulse Strength [Apical] Respiratory Rate 21 17 18 Respiratory Effort / Characteristics Respiratory Depth Respiratory Pattern Blood Pressure Blood Pressure [Right Arm] Blood Pressure Mean Blood Pressure Mean [Right Arm] Blood Pressure Position Blood Pressure Position [Right Arm] Pulse Oximetry 93 94 92 Oxygen Delivery Method Oxygen Flow Rate Sepsis Recent Fever Within 48 Hours Sepsis New/Unexplained Change in Mental Status Sepsis Action Taken by Nursing 08/22/22 06:10 08/22/22 06:20 08/22/22 06:41 Temperature Temperature Source Pulse Rate 76 75 81 Pulse Rate [Apical] Pulse Rate from SpO2 Sensor 76 75 80 Pulse Rhythm Pulse Rhythm [Apical] Pulse Strength Pulse Strength [Apical] Respiratory Rate 22 20 10 L Respiratory Effort / Characteristics Respiratory Depth Respiratory Pattern Blood Pressure Blood Pressure [Right Arm] Blood Pressure Mean Blood Pressure Mean [Right Arm] Blood Pressure Position Blood Pressure Position [Right Arm] Pulse Oximetry 97 97 97 Oxygen Delivery Method Oxygen Flow Rate Sepsis Recent Fever Within 48 Hours Sepsis New/Unexplained Change in Mental Status Sepsis Action Taken by Nursing 08/22/22 06:43 08/22/22 06:43 08/22/22 06:50 Temperature Temperature Source Pulse Rate 76 70 Pulse Rate [Apical] Pulse Rate from SpO2 Sensor 77 71 Pulse Rhythm Pulse Rhythm [Apical] Pulse Strength Pulse Strength [Apical] Respiratory Rate 18 20 Respiratory Effort / Characteristics Respiratory Depth Respiratory Pattern Blood Pressure 134/64 Blood Pressure [Right Arm] Blood Pressure Mean 87 Blood Pressure Mean [Right Arm] Blood Pressure Position Blood Pressure Position [Right Arm] Pulse Oximetry 98 98 Oxygen Delivery Method Oxygen Flow Rate Sepsis Recent Fever Within 48 Hours Sepsis New/Unexplained Change in Mental Status Sepsis Action Taken by Nursing 08/22/22 07:00 08/22/22 07:01 08/22/22 07:01 Temperature Temperature Source Pulse Rate 80 81 Pulse Rate [Apical] Pulse Rate from SpO2 Sensor 81 Pulse Rhythm Pulse Rhythm [Apical] Pulse Strength Pulse Strength [Apical] Respiratory Rate 23 22 Respiratory Effort / Characteristics Respiratory Depth Respiratory Pattern Blood Pressure 146/72 H Blood Pressure [Right Arm] Blood Pressure Mean 96 Blood Pressure Mean [Right Arm] Blood Pressure Position Blood Pressure Position [Right Arm] Pulse Oximetry 93 Oxygen Delivery Method Nasal Cannula Oxygen Flow Rate 5 Sepsis Recent Fever Within 48 Hours Sepsis New/Unexplained Change in Mental Status Sepsis Action Taken by Nursing 08/22/22 07:25 Temperature 36.9 C Temperature Source Oral Pulse Rate Pulse Rate [Apical] 75 Pulse Rate from SpO2 Sensor Pulse Rhythm Pulse Rhythm [Apical] Pulse Strength Pulse Strength [Apical] Respiratory Rate 19 Respiratory Effort / Characteristics Non-Labored Spontaneous Respiratory Depth Normal Respiratory Pattern Regular Blood Pressure Blood Pressure [Right Arm] 146/72 H Blood Pressure Mean Blood Pressure Mean [Right Arm] 96 Blood Pressure Position Blood Pressure Position [Right Arm] Pulse Oximetry 93 Oxygen Delivery Method Nasal Cannula Oxygen Flow Rate 3 Sepsis Recent Fever Within 48 Hours Sepsis New/Unexplained Change in Mental Status Sepsis Action Taken by Nursing Laboratory Data 08/22/22 05:25 08/22/22 05:25 Lab Results 08/22/22 08/22/22 08/22/22 Range/Units 05:25 05:25 05:54 WBC 5.41 (4.8-10.8) K/ul RBC 4.28 (4.20-5.40) M/uL Hgb 12.7 (12.0-16.0) g/dl Hct 37.2 (37.0-47.0) % MCV 86.9 (80.0-100.0) fL MCH 29.7 (25.0-34.0) pg MCHC 34.1 (32.0-36.0) g/dL RDW Std Deviation 50.3 H (36.4-46.3) fL RDW Coeff of Karel 15.9 H (11.5-14.5) % Plt Count 152 (130-400) K/uL MPV 9.8 (9.4-12.4) fL Immature Gran % (Auto) 0.9 % Neut % (Auto) 77.9 % Lymph % (Auto) 9.2 % [place] % (Auto) 9.4 % Eos % (Auto) 2.2 % Baso % (Auto) 0.4 % Neut # (Auto) 4.21 (1.40-6.50) K/uL Lymph # (Auto) 0.50 L (1.2-3.4) K/uL [place] # (Auto) 0.51 (0.11-0.59) K/uL Eos # (Auto) 0.12 (0-0.50) K/uL Baso # (Auto) 0.02 (0-0.2) K/uL Immature Gran # (Auto) 0.05 (0.01-0.20) K/uL Sodium 135 L (136-145) mmol/L Potassium 3.9 (3.5-5.1) mmol/L Chloride 100 (98-107) mmol/L Carbon Dioxide 30 (21-32) mmol/L Anion Gap 5 (3-11) BUN 13 (6-23) mg/dl Creatinine 0.97 (0.6-1.2) mg/dl Est Cr Clr Drug Dosing 57.4 ml/min Est GFR ( Amer) 67.2 ml/min Est GFR (Non-Af Amer) 57.9 ml/min BUN/Creatinine Ratio 13.4 (10-20) Glucose 98 (70-99(Fasting)) mg/dl Lactate 0.8 (0.4-2.0) mmol/L Calcium 9.1 (8.5-10.1) mg/dl Total Bilirubin 0.6 (0.2-1.0) mg/dl AST 27 (13-39) U/L ALT 20 (7-52) U/L Alkaline Phosphatase 56 (34-104) U/L Troponin I High Sens 24.5 H (0-14) pg/ml Total Protein 6.2 (6.0-8.3) gm/dl Albumin 3.7 (3.4-5.0) gm/dl Globulin 2.5 (2.5-4.0) gm/dl Albumin/Globulin Ratio 1.5 (0.9-2) Lipase 49 (11-82) U/L Urine Color Urine Appearance (Clear) Urine pH (4.5-7.5) Ur Specific [place] (1.000-1.030) Urine Protein (Negative) Urine Glucose (UA) (Negative) Urine Ketones (Negative) Urine Blood (Negative) Urine Nitrite (Negative) Urine Bilirubin (Negative) Urine Urobilinogen (Negative) Ur Leukocyte Esterase (Negative) Adenovirus (PCR) (NotDetected) B. pertussis DNA (PCR) (NotDetected) B.parapertussis DNA PCR (NotDetected) C. pneumoniae DNA (PCR) (NotDetected) Coronavirus OC43 (PCR) (NotDetected) Coronavirus HKU1 (PCR) (NotDetected) Coronavirus 229E (PCR) (NotDetected) SARS-CoV-2 (PCR) (NotDetected) Coronavirus NL63 (PCR) (NotDetected) Human Metapneumovir PCR (NotDetected) Influenza Type A (PCR) (NotDetected) Influenza Type B (PCR) (NotDetected) M. pneumoniae (PCR) (NotDetected) Parainfluenza 1 (PCR) (NotDetected) Parainfluenza 2 (PCR) (NotDetected) Parainfluenza 3 (PCR) (NotDetected) Parainfluenza 4 (PCR) (NotDetected) RSV (PCR) (NotDetected) Entero/Rhino (PCR) (NotDetected) 08/22/22 08/22/22 Range/Units 05:55 07:08 WBC (4.8-10.8) K/ul RBC (4.20-5.40) M/uL Hgb (12.0-16.0) g/dl Hct (37.0-47.0) % MCV (80.0-100.0) fL MCH (25.0-34.0) pg MCHC (32.0-36.0) g/dL RDW Std Deviation (36.4-46.3) fL RDW Coeff of Karel (11.5-14.5) % Plt Count (130-400) K/uL MPV (9.4-12.4) fL Immature Gran % (Auto) % Neut % (Auto) % Lymph % (Auto) % [place] % (Auto) % Eos % (Auto) % Baso % (Auto) % Neut # (Auto) (1.40-6.50) K/uL Lymph # (Auto) (1.2-3.4) K/uL [place] # (Auto) (0.11-0.59) K/uL Eos # (Auto) (0-0.50) K/uL Baso # (Auto) (0-0.2) K/uL Immature Gran # (Auto) (0.01-0.20) K/uL Sodium (136-145) mmol/L Potassium (3.5-5.1) mmol/L Chloride (98-107) mmol/L Carbon Dioxide (21-32) mmol/L Anion Gap (3-11) BUN (6-23) mg/dl Creatinine (0.6-1.2) mg/dl Est Cr Clr Drug Dosing ml/min Est GFR ( Amer) ml/min Est GFR (Non-Af Amer) ml/min BUN/Creatinine Ratio (10-20) Glucose (70-99(Fasting)) mg/dl Lactate (0.4-2.0) mmol/L Calcium (8.5-10.1) mg/dl Total Bilirubin (0.2-1.0) mg/dl AST (13-39) U/L ALT (7-52) U/L Alkaline Phosphatase (34-104) U/L Troponin I High Sens (0-14) pg/ml Total Protein (6.0-8.3) gm/dl Albumin (3.4-5.0) gm/dl Globulin (2.5-4.0) gm/dl Albumin/Globulin Ratio (0.9-2) Lipase (11-82) U/L Urine Color Yellow Urine Appearance Clear (Clear) Urine pH 7.0 (4.5-7.5) Ur Specific [place] 1.028 (1.000-1.030) Urine Protein Negative (Negative) Urine Glucose (UA) Negative (Negative) Urine Ketones Negative (Negative) Urine Blood Negative (Negative) Urine Nitrite Negative (Negative) Urine Bilirubin Negative (Negative) Urine Urobilinogen Negative (Negative) Ur Leukocyte Esterase Negative (Negative) Adenovirus (PCR) Not Detected (NotDetected) B. pertussis DNA (PCR) Not Detected (NotDetected) B.parapertussis DNA PCR Not Detected (NotDetected) C. pneumoniae DNA (PCR) Not Detected (NotDetected) Coronavirus OC43 (PCR) Not Detected (NotDetected) Coronavirus HKU1 (PCR) Not Detected (NotDetected) Coronavirus 229E (PCR) Not Detected (NotDetected) SARS-CoV-2 (PCR) Not Detected (NotDetected) Coronavirus NL63 (PCR) Not Detected (NotDetected) Human Metapneumovir PCR Not Detected (NotDetected) Influenza Type A (PCR) Not Detected (NotDetected) Influenza Type B (PCR) Not Detected (NotDetected) M. pneumoniae (PCR) Not Detected (NotDetected) Parainfluenza 1 (PCR) Not Detected (NotDetected) Parainfluenza 2 (PCR) Not Detected (NotDetected) Parainfluenza 3 (PCR) Not Detected (NotDetected) Parainfluenza 4 (PCR) Not Detected (NotDetected) RSV (PCR) Not Detected (NotDetected) Entero/Rhino (PCR) Not Detected (NotDetected) Administered Medications Discontinued Medications Al Hydrox/Mg Hydrox/Simethicone (Gi Cocktail Ed Use) 1 dose PO ONE ONE Stop: 08/22/22 07:20 Last Admin: 08/22/22 07:26 Dose: 1 dose Documented By: AMAURY Sodium Chloride (Nss) 250 mls @ 999 mls/hr IV .Q16M ONE Stop: 08/22/22 05:35 Last Infusion: 08/22/22 06:10 Dose: 0 mls/hr Documented By: Admin: 08/22/22 05:38 Dose: 999 mls/hr Documented By: PAMELA Acetaminophen (Ofirmev) 1,000 mg in 100 mls @ 400 mls/hr IV NOW STA Stop: 08/22/22 05:57 Last Infusion: 08/22/22 06:43 Dose: 0 mls/hr Documented By: Admin: 08/22/22 06:07 Dose: 400 mls/hr Documented By: PAMELA Ioversol (Optiray 350 100ml) 85 ml IV ONCE ONE Stop: 08/22/22 06:40 Last Admin: 08/22/22 06:35 Dose: 85 ml Documented By: KATTY Morphine Sulfate (Morphine Sulfate 4 Mg/Ml 1 Ml Carp\Vial) 4 mg IV NOW STA Stop: 08/22/22 05:21 Last Admin: 08/22/22 05:40 Dose: 4 mg Documented By: PAMELA Ondansetron HCl (Ondansetron Inj 2 Mg/Ml 2 Ml Vial) Confirm Administered Dose 4 mg .ROUTE .STK-MED ONE Stop: 08/22/22 05:33 Last Admin: 08/22/22 05:38 Dose: 4 mg Documented By: PAMELA Imaging Data Radiologist's Impression: Abdomen/Pelvis CT 08/22/22 05:19 CT SCAN OF THE ABDOMEN AND PELVIS WITH IV CONTRAST CLINICAL HISTORY: Generalized abdominal pain. Nausea. Diarrhea. COMPARISON STUDY: Abdominal CT dated 09/09/2018. TECHNIQUE: Following the IV administration of 85 cc of Optiray 350, CT scan of the abdomen and pelvis is performed from the lung bases to the proximal femora. Images are reviewed in the axial, sagittal, and coronal planes. IV contrast was administered without complication. A dose lowering technique was utilized adhering to the principles of ALARA. CT DOSE: 871.88 mGy.cm FINDINGS: Lung bases: The heart is enlarged and without pericardial effusion. Emphysema and fibrotic changes seen at the lung bases. Postsurgical change is suggested on the right. No airspace consolidation or pleural effusion is identified. There is a small hiatal hernia. Liver: The contrast-enhanced liver is enlarged, measuring 19.3 cm in length. The liver demonstrates diffusely diminished attenuation indicating steatosis. There is no intrahepatic biliary ductal dilatation. The hepatic veins and portal veins are patent. Gallbladder: Unremarkable. Spleen: Normal in size and attenuation. Pancreas: There is moderate fatty atrophy of the pancreas. No acute abnormality is seen. Adrenal glands: Unremarkable. Kidneys: The contrast enhanced kidneys demonstrate mild cortical atrophy and are without hydronephrosis. The kidneys enhance symmetrically. A 3 mm nonobstructing calculus is seen in the left lower pole. Scattered subcentimeter cortical hypodensities likely represent cysts but are too small for definitive characterization. Abdominal vasculature: The abdominal aorta is normal in course and caliber noting advanced atherosclerotic calcification. Bowel: There is mild colonic diverticulosis without CT evidence of acute diverticulitis. No bowel obstruction is seen. The appendix is well-visualized and normal. Peritoneum: There is no intraperitoneal free air or abdominal ascites. There is a fat-containing umbilical hernia. There is laxity of the ventral abdominal wall with diastases of the rectus musculature. Lymphadenopathy: None. Pelvic viscera: The bladder is mildly distended but otherwise normal in appearance. The uterus and adnexa are normal as visualized. There are bilateral fat-containing groin hernias. Skeletal structures: The skeletal structures are osteopenic. There is mild lumbosacral spondylosis. No lytic or blastic lesions are seen. IMPRESSION: 1. No acute infectious or inflammatory findings are identified in the abdomen or pelvis. 2. Cardiomegaly and emphysema. 3. Fibrotic change at the lung bases is similar to previous. 4. Hepatomegaly and hepatic steatosis. 5. Mild colonic diverticulosis without CT evidence of acute diverticulitis. 6. Right-sided nephrolithiasis. 7. Additional findings as above. ACT 112: Negative or not required by law. Electronically signed by: Edi Figueroa M.D. 08/22/2022 6:53 AM Chest X-Ray 08/22/22 05:43 SINGLE VIEW CHEST CLINICAL HISTORY: Fever. FINDINGS: An AP, portable, upright chest radiograph is compared to study dated 09/10/2021 and correlated with chest CT dated 04/16/2021. The heart is enlarged noting atherosclerotic calcification of the thoracic aorta. The pulmonary vasculature is noncongested. Emphysema with evidence of superimposed chronic interstitial/fibrotic lung disease is similar to previous. No superimposed airspace consolidation or large pleural effusion is identified. No pneumothorax is seen. The skeletal structures are osteopenic. The bony thorax is grossly intact. IMPRESSION: 1. Cardiomegaly with no acute cardiopulmonary abnormality identified. 2. Emphysema with superimposed changes of chronic interstitial/fibrotic lung disease is similar to previous. ACT 112: Negative or not required by law. Electronically signed by: Edi Figueroa M.D. 08/22/2022 7:17 AM Discharge Plan Visit Data Chief Complaint: Abdominal Pain Stated Complaint: ABDOMINAL PAIN/FEVER/LOOSE STOOL ED Provider: Yomi Giraldo Discharge Problem: Chest pain Patient Disposition: Admitted As Inpatient Forms Stand Alone Forms: [facility] Prescriptions Prescriptions: No Action (DME) CPAP Machine Misc See Rx Instructions .ROUTE .MEDSUPPLY Qty: 1 0RF Rx Instructions: Auto CPAP 5-12 H20, tubing, supplies heated humification. [place] w/ AHI and compliance. ELO: 99yr sertraline [Zoloft] 100 mg tablet 100 mg PO QAM Qty: 30 3RF (DME) Portable Oxygen Misc See Rx Instructions .MEDSUPPLY Qty: 1 0RF Rx Instructions: Oxygen 2 liters continuous with portable concentrator. STEPHANI 99 aspirin [Lo-Dose Aspirin] 81 mg tablet,delayed release (DR/EC) 81 mg PO QAM Qty: 30 Rx Instructions: Take with food guaifenesin [Mucinex] 600 mg tablet extended release 12hr 600 mg PO BID PRN (Reason: cough and congestion) Qty: 60 2RF Rx Instructions: Take 1 tab twice daily for 5 days straight and then as needed clonidine HCl 0.1 mg tablet 0.1 mg PO BID@0800,2000 PRN (Reason: HTN) albuterol sulfate [Ventolin HFA] 90 mcg/actuation HFA aerosol inhaler 2 puff INH Q4H PRN (Reason: Wheezing) Qty: 18 3RF ipratropium-albuterol 0.5 mg-3 mg(2.5 mg base)/3 mL solution for nebulization 3 ml INH Q8H PRN (Reason: shortness of breath or wheezing) Qty: 270 3RF Anoro Ellipta 62.5-25 mcg/actuation blister with device 1 inh inhalation DAILY Qty: 60 3RF diltiazem HCl [Cartia XT] 180 mg Capsule,Extended Release 24hr 180 mg PO QAM montelukast 10 mg tablet 10 mg PO HS furosemide [Lasix] 20 mg tablet 20 mg PO DAILY levothyroxine 100 mcg Tablet 100 mcg PO QAM pantoprazole [Protonix] 40 mg tablet,delayed release (DR/EC) 40 mg PO DAILYBB loratadine [Claritin] 10 mg Tablet 10 mg PO QAM buspirone 15 mg tablet 15 mg PO HS losartan [Cozaar] 100 mg tablet 100 mg PO QAM donepezil [Aricept] 5 mg tablet 5 mg PO QAM Rx Instructions: Take 1 tab by mouth daily. Take with largest meal of the day. buspirone 15 mg tablet 7.5 mg PO QAM gabapentin 100 mg capsule 100 mg PO HS polyethylene glycol 3350 [Miralax] 17 gram Powder In Packet 17 g PO DAILY PRN (Reason: constipation) Qty: 30 0RF azelastine 137 mcg (0.1 %) Aerosol,[place] 1 spray INTRANASAL BID docusate sodium 100 mg capsule 100 mg PO BID benzonatate [Tessalon Perles] 100 mg Capsule 100 mg PO TID Qty: 30 0RF guaifenesin [Mucinex] 600 mg Tablet Extended Release 12hr 600 mg PO Q12 Qty: 30 0RF Lactinex 1 million cell tablet,chewable 1 tab PO BID Qty: 30 0RF Referrals Referrals: Cristina Vizcarra MD [Primary Care Provider] -
[2022-08-22] MEDS ORDERED: ONDANSETRON INJ 2 MG/ML 2 ML VIAL ONE (05:32)
[2022-08-22] MEDS ORDERED: ACETAMINOPHEN 1,000 MG/100 ML VIAL IV STA (05:43)
[2022-08-22 05:47] LABS: Basophils # (auto) 0.02 K/uL (0-0.2); Basophils % (auto) 0.4 %; Eosinophils # (auto) 0.12 K/uL (0-0.50); Eosinophils % (auto) 2.2 %; Hematocrit (blood only) 37.2 % (37.0-47.0); Hemoglobin 12.7 g/dl (12.0-16.0); Immature Granulocytes # (auto) 0.05 K/uL (0.01-0.20); Immature Granulocytes % (auto) 0.9 %; Lymphocytes % (auto) 9.2 %; Mean Corpuscular Hemoglobin 29.7 pg (25.0-34.0); Mean Corpuscular Hgb Conc 34.1 g/dL (32.0-36.0); Mean Corpuscular Volume 86.9 fL (80.0-100.0); Mean Platelet Volume 9.8 fL (9.4-12.4); Monocytes # (auto) 0.51 K/uL (0.11-0.59); Monocytes % (auto) 9.4 %; Neutrophils # (auto) 4.21 K/uL (1.40-6.50); Neutrophils % (auto) 77.9 %; Platelet Count 152 K/uL (130-400); RDW Coefficient of Variation 15.9 % (11.5-14.5); RDW Standard Deviation 50.3 fL (36.4-46.3); Red Blood Count 4.28 M/uL (4.20-5.40); White Blood Count 5.41 K/ul (4.8-10.8)
[2022-08-22 06:05] LABS: Albumin Globulin Ratio 1.5 (0.9-2); Albumin Level 3.7 gm/dl (3.4-5.0); BUN Creatinine Ratio 13.4 (10-20); Bilirubin,Total 0.6 mg/dl (0.2-1.0); Calcium 9.1 mg/dl (8.5-10.1); Creatinine Clr Calc Pharmacy 57.4 ml/min; Est GFR (African American) 67.2 ml/min; Est GFR (Non-African American) 57.9 ml/min; Globulin 2.5 gm/dl (2.5-4.0); Potassium 3.9 mmol/L (3.5-5.1); Total Protein 6.2 gm/dl (6.0-8.3)
[2022-08-22 06:11] LABS: Troponin I High Sensitivity 24.5 pg/ml (0-14)
[2022-08-22] MEDS ORDERED: OPTIRAY 350 100ml IV ONE (06:39)
--- NOTE | 2022-08-22 06:55 | CT Scan Report ---
CT SCAN OF THE ABDOMEN AND PELVIS WITH IV CONTRAST CLINICAL HISTORY: Generalized abdominal pain. Nausea. Diarrhea. COMPARISON STUDY: Abdominal CT dated 09/09/2018. TECHNIQUE: Following the IV administration of 85 cc of Optiray 350, CT scan of the abdomen and pelvi s is performed from the lung bases to the proximal femora. Images are reviewed in the axial, sagittal , and coronal planes. IV contrast was administered without complication. A dose lowering technique wa s utilized adhering to the principles of ALARA. CT DOSE: 871.88 mGy.cm FINDINGS: Lung bases: The heart is enlarged and without pericardial effusion. Emphysema and fibrotic changes se en at the lung bases. Postsurgical change is suggested on the right. No airspace consolidation or ple ural effusion is identified. There is a small hiatal hernia. Liver: The contrast-enhanced liver is enlarged, measuring 19.3 cm in length. The liver demonstrates d iffusely diminished attenuation indicating steatosis. There is no intrahepatic biliary ductal dilatat ion. The hepatic veins and portal veins are patent. Gallbladder: Unremarkable. Spleen: Normal in size and attenuation. Pancreas: There is moderate fatty atrophy of the pancreas. No acute abnormality is seen. Adrenal glands: Unremarkable. Kidneys: The contrast enhanced kidneys demonstrate mild cortical atrophy and are without hydronephros is. The kidneys enhance symmetrically. A 3 mm nonobstructing calculus is seen in the left lower pole. Scattered subcentimeter cortical hypodensities likely represent cysts but are too small for definiti ve characterization. Abdominal vasculature: The abdominal aorta is normal in course and caliber noting advanced atheroscle rotic calcification. Bowel: There is mild colonic diverticulosis without CT evidence of acute diverticulitis. No bowel obs truction is seen. The appendix is well-visualized and normal. Peritoneum: There is no intraperitoneal free air or abdominal ascites. There is a fat-containing umbi lical hernia. There is laxity of the ventral abdominal wall with diastases of the rectus musculature. Lymphadenopathy: None. Pelvic viscera: The bladder is mildly distended but otherwise normal in appearance. The uterus and ad nexa are normal as visualized. There are bilateral fat-containing groin hernias. Skeletal structures: The skeletal structures are osteopenic. There is mild lumbosacral spondylosis. N o lytic or blastic lesions are seen. IMPRESSION: 1. No acute infectious or inflammatory findings are identified in the abdomen or pelvis. 2. Cardiomegaly and emphysema. 3. Fibrotic change at the lung bases is similar to previous. 4. Hepatomegaly and hepatic steatosis. 5. Mild colonic diverticulosis without CT evidence of acute diverticulitis. 6. Right-sided nephrolithiasis. 7. Additional findings as above. ACT 112: Negative or not required by law. Electronically signed by: Edi Figueroa M.D. 08/22/2022 6:53 AM
[2022-08-22 07:13] LABS: Adenovirus PCR Not Detected (NotDetected); Bordetella parapertussis PCR Not Detected (NotDetected); Bordetella pertussis PCR Not Detected (NotDetected); Chlamydia pneumoniae PCR Not Detected (NotDetected); Coronavirus 229E PCR Not Detected (NotDetected); Coronavirus CoV-2 (COVID19)PCR Not Detected (NotDetected); Coronavirus HKU1 PCR Not Detected (NotDetected); Coronavirus NL63 PCR Not Detected (NotDetected); Coronavirus OC43PCR Not Detected (NotDetected); Human Metapneumovirus PCR Not Detected (NotDetected); Influenza A PCR Not Detected (NotDetected); Influenza B PCR Not Detected (NotDetected); Mycoplasma pneumoniae PCR Not Detected (NotDetected); Parainfluenza Virus 1 PCR Not Detected (NotDetected); Parainfluenza Virus 2 PCR Not Detected (NotDetected); Parainfluenza Virus 3 PCR Not Detected (NotDetected); Parainfluenza Virus 4 PCR Not Detected (NotDetected); Respiratory Syncytial VirusPCR Not Detected (NotDetected); Rhinovirus/Enterovirus PCR Not Detected (NotDetected)
[2022-08-22 07:17] LABS: Appearance Urine Clear (Clear); Bilirubin Urine Negative (Negative); Blood Urine Negative (Negative); Color Urine Yellow; Glucose Urine UA Negative (Negative); Ketones Urine Negative (Negative); Leukocyte Esterase Urine Negative (Negative); Nitrite Urine Negative (Negative); Protein Urine Negative (Negative); Specific Gravity Urine 1.028 (1.000-1.030); Urobilinogen Urine Negative (Negative)
--- NOTE | 2022-08-22 07:18 | XRay Report ---
SINGLE VIEW CHEST CLINICAL HISTORY: Fever. FINDINGS: An AP, portable, upright chest radiograph is compared to study dated 09/10/2021 and correlat ed with chest CT dated 04/16/2021. The heart is enlarged noting atherosclerotic calcification of the thoracic aorta. The pulmonary vasculature is noncongested. Emphysema with evidence of superimposed ch ronic interstitial/fibrotic lung disease is similar to previous. No superimposed airspace consolidati on or large pleural effusion is identified. No pneumothorax is seen. The skeletal structures are oste openic. The bony thorax is grossly intact. IMPRESSION: 1. Cardiomegaly with no acute cardiopulmonary abnormality identified. 2. Emphysema with superimposed changes of chronic interstitial/fibrotic lung disease is similar to pr evious. ACT 112: Negative or not required by law. Electronically signed by: Edi Figueroa M.D. 08/22/2022 7:17 AM
[2022-08-22] MEDS ORDERED: GI COCKTAIL ED USE PO ONE (07:19)
--- NOTE | 2022-08-22 10:38 | History & Physical Report ---
Date of Service August 22, 2022 Assessment & Plan (1) Abdominal pain: (2) Epigastric pain: (3) ILD (interstitial lung disease): (4) Hypothyroidism: (5) Chronic respiratory failure with hypoxia: Plan 71-year-old female with history of COPD, interstitial lung disease/pulmonary fibrosis, chronic respiratory failure with hypoxia, on 3L at baseline, presents with left sided abdominal pain for several days, epigastric discomfort, nausea, chest discomfort and fever. Patient had a loose stool earlier as well. Abd. pain/ epigastric pain, nausea, fever CT abdomen pelvis obtained 1. No acute infectious or inflammatory findings are identified in the abdomen or pelvis. 2. Cardiomegaly and emphysema. 3. Fibrotic change at the lung bases is similar to previous. 4. Hepatomegaly and hepatic steatosis. 5. Mild colonic diverticulosis without CT evidence of acute diverticulitis. 6. Right-sided nephrolithiasis. blood cultx - pending UA- negative Resp. biofire negative Stool pcr and c. diff - pending Procal elevated at 0.64 Hold azithromycin for now given concern for c. diff hold diuretics for now Start PPI IV BID for now start PO vanco for poss. c.diff if c. diff negative may start broad spectrum abx Mildly elevated troponin - secondary to above and chronic hypoxic resp. failure - cont. to monitor on tele (however now learned pt may be on hospice - will clarify with CM) Chronic conditions Chronic respiratory failure with hypoxia, 3 L at baseline, COPD, interstitial lung disease/pulmonary fibrosis -Continue home medications -Hold azithromycin for now, as above Hypothyroidism -Continue home Synthroid HTN -Continue home medications, except for diuretics -Continue to monitor BP Dispo -patient reports being on hospice, will clarify this with the case management Patient confirms DNR/DNI status History of Present Illness Chief Complaint: Abd. pain Primary Care Provider: Cristina Vizcarra MD 71 yo female, with history of COPD, interstitial lung disease/pulmonary fibrosis, chronic respiratory failure with hypoxia, on 3L at baseline, presents with left sided abdominal pain for several days, epigastric discomfort, nausea, chest discomfort and fever. Patient had a loose stool earlier as well. CT abdomen pelvis obtained, chest x-ray obtained, however unremarkable. Blood cultures obtained given fever. Respiratory bio fire obtained and negative. Lactate negative. Mildly elevated troponin noted in ED in 20s. She received GI cocktail, morphine, IV Tylenol and some fluid in the ED. Patient tells me that she is always somewhat short of breath, due to her interstitial disease. She tells me she has been desaturating quite a bit with ambulation, even more than usual. Then she also developed left-sided abdominal pain several days ago, and epigastric discomfort, which she reports to have on and off for a long time. She also reports some chest discomfort/pain on and off, which also has been ongoing for a long time now. Currently denies any chest pain. Abdominal pain improved after medications received in the ED. When I questioned her if she mentioned her symptoms to anyone , such as pcp she told me that she said this to her hospice nurse. (At this moment trying to confirm the information about the hospice from the ED provider/sales activity manager/floor patient case coordinator). Patient tells me that she cannot confirm all her medications, however says that she has been on azithromycin Tuesday. She is not aware of any history of C. difficile. Discussed that we will check stool studies and will check also for C. difficile. Pro-Syed also ordered. Allergies Allergy/AdvReac Type Severity Reaction Status Date / Time baclofen Allergy Severe Unknown Verified 08/22/22 07:33 cefuroxime Allergy Severe Hives and Verified 08/22/22 07:33 Dizziness hydralazine Allergy Intermediate joint pain Verified 08/22/22 07:33 tetracycline Allergy Mild RASH Verified 08/22/22 07:33 budesonide AdvReac Severe caused her Verified 08/22/22 07:33 to cough constantly amlodipine AdvReac Mild Edema. Verified 08/22/22 07:33 Home Medications Medication Instructions Recorded Confirmed Type aspirin 81 mg tablet,delayed 81 mg PO QAM #30 tabs 03/09/19 08/22/22 History release (Lo-Dose Aspirin) buspirone 15 mg tablet 15 mg PO HS Anxiety 07/29/19 08/22/22 History loratadine 10 mg tablet (Claritin) 10 mg PO QAM 07/29/19 08/22/22 History losartan 100 mg tablet (Cozaar) 100 mg PO QAM 07/29/19 08/22/22 History pantoprazole 40 mg tablet,delayed 40 mg PO DAILYBB 07/29/19 08/22/22 History release (Protonix) CPAP Machine #1 ea 08/06/19 05/20/21 Rx diltiazem HCl 180 mg 180 mg PO QAM 08/12/19 08/22/22 History capsule,extended release 24 hr (Cartia XT) sertraline 100 mg tablet (Zoloft) 100 mg PO QAM #30 tabs 10/15/19 08/22/22 Rx montelukast 10 mg tablet 10 mg PO HS 12/06/19 08/22/22 History furosemide 20 mg tablet (Lasix) 20 mg PO DAILY 12/07/19 08/22/22 History levothyroxine 100 mcg tablet 100 mcg PO QAM 01/23/20 08/22/22 History Portable Oxygen #1 ea 04/04/20 05/20/21 Rx clonidine HCl 0.1 mg tablet 0.1 mg PO BID@0800,2000 PRN HTN 05/13/20 08/22/22 History buspirone 15 mg tablet 7.5 mg PO QAM 01/16/21 08/22/22 History gabapentin 100 mg capsule 100 mg PO HS 01/16/21 08/22/22 History polyethylene glycol 3350 17 gram 17 g PO DAILY PRN constipation #30 01/19/21 08/22/22 Rx oral powder packet (Miralax) ea donepezil 5 mg tablet (Aricept) 5 mg PO QAM 01/20/21 08/22/22 History albuterol sulfate 90 mcg/actuation 2 puff inhalation Q4H PRN Wheezing 03/17/21 08/22/22 Rx aerosol inhaler (Ventolin HFA) #18 grams ipratropium 0.5 mg-albuterol 3 mg 3 ml inhalation Q8H PRN shortness 03/17/21 08/22/22 Rx (2.5 mg base)/3 mL nebulization of breath or wheezing #270 mL soln umeclidinium 62.5 mcg-vilanterol 1 inh inhalation DAILY #60 ea 03/17/21 08/22/22 Rx 25 mcg/actuation powdr for inhalation (Anoro Ellipta) azelastine 137 mcg (0.1 %) nasal 1 spray intranasal BID 04/16/21 08/22/22 History spray aerosol docusate sodium 100 mg capsule 100 mg PO BID 04/16/21 08/22/22 History Lactobacillus acidoph-L.bulgaricus 1 tab PO BID #30 tabs 04/19/21 08/22/22 Rx 1 million cell chewable tablet (Lactinex) benzonatate 100 mg capsule 100 mg PO TID #30 caps 04/19/21 08/22/22 Rx (Tessalon Perles) azithromycin 250 mg tablet 250 mg PO MOWEFR 08/22/22 08/22/22 History (Zithromax) Past Med/Surg History Medical History (Updated 08/22/22 @ 11:50 by Martin Abbasi MD) Anxiety and depression Axillary lymphadenopathy Chronic back pain Chronic respiratory failure with hypoxia CKD (chronic kidney disease), stage III stage 3. follows with pcp. COPD (chronic obstructive pulmonary disease) Degenerative disc disease GERD (gastroesophageal reflux disease) History of breast cancer bilateral HTN (hypertension) Hx of duodenal ulcer Hyperlipidemia Hypothyroidism ILD (interstitial lung disease) Mild cognitive impairment On home oxygen therapy 2lpm via n/c continuous BERNA (obstructive sleep apnea) cpap Osteoarthritis Prediabetes Pulmonary fibrosis Restless legs syndrome hx SCC (squamous cell carcinoma) face Surgical History History of bilateral tubal ligation History of bronchoscopy History of cardiac cath no stents. (~1979) History of colonoscopy History of esophagogastroduodenoscopy (EGD) History of lung surgery thorascopy for lung biopsy S/P mastectomy, bilateral lymph node removal Left arm S/P thyroidectomy partial (r/t nodule) Family History Sister Myocardial infarction Sister Stroke Other No family history of adverse response to anesthesia Social History (Updated 04/16/21 @ 15:29 by Beverly Gudino PA-C) Smoking Status: Never smoker Tobacco Type: Cigarettes Cigarettes Per Day: 50 pack yr hx; Second Hand Exposure: No; Hx Alcohol Use: No Hx Substance Use: No Preferred Language: Malagasy Communication Ability: Effective Licensed Practical Nurse Required: No Beliefs That Will Affect Care: None marital status: Current Living Situation: Alone Current Living Situation Comment: Senior apartment building How many Children do You have: 2 Feels Safe at Home: Yes Assistive Devices: Oxygen - Continuous Review of Systems Review of Systems: All systems reviewed & are unremarkable except as noted in Subjective Physical Exam Physical Exam: Chronically ill-appearing,WD/WN F in NAD on suppl. O2 Constitutional: WD/WN, vitals as above Eyes: PERRL, conjunctivae normal, anicteric sclerae ENMT: external ear and nose normal, oropharynx normal Neck: trachea midline, no thyromegaly Respiratory: normal respiratory effort Auscultation: + rhonchi Cardiovascular: RRR, no murmur, no edema Chest (Breasts): Chest: normal inspection of chest Gastrointestinal (Abdomen): soft, obese, + bowel sounds, L-sided and epigastr. tenderness on palpation Musculoskeletal: no cyanosis or clubbing, extremities motor strength 5/5 Skin: no rashes, warm and dry Neurologic: PERRL, EOMI, accommodation nl, no face palsy, no dysarthria Psychiatric: A+Ox3, euthymic affect Results & Data Results & Data ([facility]) Vital Signs (Past 12 Hours) Vital Signs Temp Pulse Pulse Resp BP BP Pulse Ox 08/22/22 09:50 60 22 106/53 L 97 08/22/22 09:41 58 L 15 97 08/22/22 09:41 95/48 L 08/22/22 09:40 62 21 97 08/22/22 09:30 64 18 96 08/22/22 09:20 64 18 96 08/22/22 09:10 63 28 H 96 08/22/22 09:01 64 21 89 L 08/22/22 09:00 65 19 96 08/22/22 09:19 64 08/22/22 08:50 78 20 90 08/22/22 08:40 61 18 96 08/22/22 08:30 62 20 97 08/22/22 08:20 67 19 97 08/22/22 08:10 64 20 96 08/22/22 08:00 61 17 95 08/22/22 08:00 106/59 L 08/22/22 08:00 106/59 L 08/22/22 07:50 70 14 95 08/22/22 07:40 66 21 94 08/22/22 07:30 79 20 93 08/22/22 07:20 71 25 H 94 08/22/22 07:10 81 19 91 08/22/22 07:25 36.9 C 75 19 146/72 H 93 08/22/22 07:01 146/72 H 08/22/22 07:01 81 22 93 08/22/22 07:00 80 23 08/22/22 06:50 70 20 98 08/22/22 06:43 134/64 08/22/22 06:43 76 18 98 08/22/22 06:41 81 10 L 97 08/22/22 06:20 75 20 97 08/22/22 06:10 76 22 97 08/22/22 06:00 90 18 92 08/22/22 05:50 79 17 94 08/22/22 05:43 81 21 93 08/22/22 05:43 152/65 H 08/22/22 05:40 84 23 94 08/22/22 05:30 83 18 94 08/22/22 05:20 89 20 96 08/22/22 05:12 82 19 99 08/22/22 05:13 83 08/22/22 05:44 81 18 152/65 H 95 08/22/22 05:36 81 22 96 08/22/22 05:10 38.5 C H 81 21 147/77 H 98 O2 Del Method O2 Flow Rate 08/22/22 09:50 Nasal Cannula 3 08/22/22 09:41 Nasal Cannula 3 08/22/22 09:41 08/22/22 09:40 08/22/22 09:30 Nasal Cannula 3 08/22/22 09:20 Nasal Cannula 3 08/22/22 09:10 Nasal Cannula 3 08/22/22 09:01 Nasal Cannula 3 08/22/22 09:00 08/22/22 09:19 08/22/22 08:50 Nasal Cannula 3 08/22/22 08:40 Nasal Cannula 3 08/22/22 08:30 Nasal Cannula 3 08/22/22 08:20 Nasal Cannula 3 08/22/22 08:10 Nasal Cannula 3 08/22/22 08:00 Nasal Cannula 3 08/22/22 08:00 08/22/22 08:00 08/22/22 07:50 Nasal Cannula 3 08/22/22 07:40 Nasal Cannula 3 08/22/22 07:30 Nasal Cannula 3 08/22/22 07:20 Nasal Cannula 3 08/22/22 07:10 Nasal Cannula 3 08/22/22 07:25 Nasal Cannula 3 08/22/22 07:01 Nasal Cannula 5 08/22/22 07:01 08/22/22 07:00 08/22/22 06:50 08/22/22 06:43 08/22/22 06:43 08/22/22 06:41 08/22/22 06:20 08/22/22 06:10 08/22/22 06:00 08/22/22 05:50 08/22/22 05:43 08/22/22 05:43 08/22/22 05:40 08/22/22 05:30 08/22/22 05:20 08/22/22 05:12 08/22/22 05:13 08/22/22 05:44 Room Air 08/22/22 05:36 Room Air 08/22/22 05:10 Nasal Cannula 4 Laboratory Results 08/22/22 08/22/22 08/22/22 Range/Units 07:44 07:08 05:55 WBC (4.8-10.8) K/ul RBC (4.20-5.40) M/uL Hgb (12.0-16.0) g/dl Hct (37.0-47.0) % MCV (80.0-100.0) fL MCH (25.0-34.0) pg MCHC (32.0-36.0) g/dL RDW Std Deviation (36.4-46.3) fL RDW Coeff of Karel (11.5-14.5) % Plt Count (130-400) K/uL MPV (9.4-12.4) fL Immature Gran % (Auto) % Neut % (Auto) % Lymph % (Auto) % [place] % (Auto) % Eos % (Auto) % Baso % (Auto) % Neut # (Auto) (1.40-6.50) K/uL Lymph # (Auto) (1.2-3.4) K/uL [place] # (Auto) (0.11-0.59) K/uL Eos # (Auto) (0-0.50) K/uL Baso # (Auto) (0-0.2) K/uL Immature Gran # (Auto) (0.01-0.20) K/uL Sodium (136-145) mmol/L Potassium (3.5-5.1) mmol/L Chloride (98-107) mmol/L Carbon Dioxide (21-32) mmol/L Anion Gap (3-11) BUN (6-23) mg/dl Creatinine (0.6-1.2) mg/dl Est Cr Clr Drug Dosing ml/min Est GFR ( Amer) ml/min Est GFR (Non-Af Amer) ml/min BUN/Creatinine Ratio (10-20) Glucose (70-99(Fasting)) mg/dl Lactate (0.4-2.0) mmol/L Calcium (8.5-10.1) mg/dl Total Bilirubin (0.2-1.0) mg/dl AST (13-39) U/L ALT (7-52) U/L Alkaline Phosphatase (34-104) U/L Troponin I High Sens 26.7 H (0-14) pg/ml Total Protein (6.0-8.3) gm/dl Albumin (3.4-5.0) gm/dl Globulin (2.5-4.0) gm/dl Albumin/Globulin Ratio (0.9-2) Lipase (11-82) U/L Procalcitonin (0-0.5) ng/ml Urine Color Yellow Urine Appearance Clear (Clear) Urine pH 7.0 (4.5-7.5) Ur Specific [place]raphill 1.028 (1.000-1.030) Urine Protein Negative (Negative) Urine Glucose (UA) Negative (Negative) Urine Ketones Negative (Negative) Urine Blood Negative (Negative) Urine Nitrite Negative (Negative) Urine Bilirubin Negative (Negative) Urine Urobilinogen Negative (Negative) Ur Leukocyte Esterase Negative (Negative) Adenovirus (PCR) Not Detected (NotDetected) B. pertussis DNA (PCR) Not Detected (NotDetected) B.parapertussis DNA PCR Not Detected (NotDetected) C. pneumoniae DNA (PCR) Not Detected (NotDetected) Coronavirus OC43 (PCR) Not Detected (NotDetected) Coronavirus HKU1 (PCR) Not Detected (NotDetected) Coronavirus 229E (PCR) Not Detected (NotDetected) SARS-CoV-2 (PCR) Not Detected (NotDetected) Coronavirus NL63 (PCR) Not Detected (NotDetected) Human Metapneumovir PCR Not Detected (NotDetected) Influenza Type A (PCR) Not Detected (NotDetected) Influenza Type B (PCR) Not Detected (NotDetected) M. pneumoniae (PCR) Not Detected (NotDetected) Parainfluenza 1 (PCR) Not Detected (NotDetected) Parainfluenza 2 (PCR) Not Detected (NotDetected) Parainfluenza 3 (PCR) Not Detected (NotDetected) Parainfluenza 4 (PCR) Not Detected (NotDetected) RSV (PCR) Not Detected (NotDetected) Entero/Rhino (PCR) Not Detected (NotDetected) 08/22/22 08/22/22 08/22/22 Range/Units 05:54 05:25 05:25 WBC (4.8-10.8) K/ul RBC (4.20-5.40) M/uL Hgb (12.0-16.0) g/dl Hct (37.0-47.0) % MCV (80.0-100.0) fL MCH (25.0-34.0) pg MCHC (32.0-36.0) g/dL RDW Std Deviation (36.4-46.3) fL RDW Coeff of Karel (11.5-14.5) % Plt Count (130-400) K/uL MPV (9.4-12.4) fL Immature Gran % (Auto) % Neut % (Auto) % Lymph % (Auto) % [place] % (Auto) % Eos % (Auto) % Baso % (Auto) % Neut # (Auto) (1.40-6.50) K/uL Lymph # (Auto) (1.2-3.4) K/uL [place] # (Auto) (0.11-0.59) K/uL Eos # (Auto) (0-0.50) K/uL Baso # (Auto) (0-0.2) K/uL Immature Gran # (Auto) (0.01-0.20) K/uL Sodium 135 L (136-145) mmol/L Potassium 3.9 (3.5-5.1) mmol/L Chloride 100 (98-107) mmol/L Carbon Dioxide 30 (21-32) mmol/L Anion Gap 5 (3-11) BUN 13 (6-23) mg/dl Creatinine 0.97 (0.6-1.2) mg/dl Est Cr Clr Drug Dosing 57.4 ml/min Est GFR ( Amer) 67.2 ml/min Est GFR (Non-Af Amer) 57.9 ml/min BUN/Creatinine Ratio 13.4 (10-20) Glucose 98 (70-99(Fasting)) mg/dl Lactate 0.8 (0.4-2.0) mmol/L Calcium 9.1 (8.5-10.1) mg/dl Total Bilirubin 0.6 (0.2-1.0) mg/dl AST 27 (13-39) U/L ALT 20 (7-52) U/L Alkaline Phosphatase 56 (34-104) U/L Troponin I High Sens 24.5 H (0-14) pg/ml Total Protein 6.2 (6.0-8.3) gm/dl Albumin 3.7 (3.4-5.0) gm/dl Globulin 2.5 (2.5-4.0) gm/dl Albumin/Globulin Ratio 1.5 (0.9-2) Lipase 49 (11-82) U/L Procalcitonin 0.64 H (0-0.5) ng/ml Urine Color Urine Appearance (Clear) Urine pH (4.5-7.5) Ur Specific [place] (1.000-1.030) Urine Protein (Negative) Urine Glucose (UA) (Negative) Urine Ketones (Negative) Urine Blood (Negative) Urine Nitrite (Negative) Urine Bilirubin (Negative) Urine Urobilinogen (Negative) Ur Leukocyte Esterase (Negative) Adenovirus (PCR) (NotDetected) B. pertussis DNA (PCR) (NotDetected) B.parapertussis DNA PCR (NotDetected) C. pneumoniae DNA (PCR) (NotDetected) Coronavirus OC43 (PCR) (NotDetected) Coronavirus HKU1 (PCR) (NotDetected) Coronavirus 229E (PCR) (NotDetected) SARS-CoV-2 (PCR) (NotDetected) Coronavirus NL63 (PCR) (NotDetected) Human Metapneumovir PCR (NotDetected) Influenza Type A (PCR) (NotDetected) Influenza Type B (PCR) (NotDetected) M. pneumoniae (PCR) (NotDetected) Parainfluenza 1 (PCR) (NotDetected) Parainfluenza 2 (PCR) (NotDetected) Parainfluenza 3 (PCR) (NotDetected) Parainfluenza 4 (PCR) (NotDetected) RSV (PCR) (NotDetected) Entero/Rhino (PCR) (NotDetected) 08/22/22 Range/Units 05:25 WBC 5.41 (4.8-10.8) K/ul RBC 4.28 (4.20-5.40) M/uL Hgb 12.7 (12.0-16.0) g/dl Hct 37.2 (37.0-47.0) % MCV 86.9 (80.0-100.0) fL MCH 29.7 (25.0-34.0) pg MCHC 34.1 (32.0-36.0) g/dL RDW Std Deviation 50.3 H (36.4-46.3) fL RDW Coeff of Karel 15.9 H (11.5-14.5) % Plt Count 152 (130-400) K/uL MPV 9.8 (9.4-12.4) fL Immature Gran % (Auto) 0.9 % Neut % (Auto) 77.9 % Lymph % (Auto) 9.2 % [place] % (Auto) 9.4 % Eos % (Auto) 2.2 % Baso % (Auto) 0.4 % Neut # (Auto) 4.21 (1.40-6.50) K/uL Lymph # (Auto) 0.50 L (1.2-3.4) K/uL [place] # (Auto) 0.51 (0.11-0.59) K/uL Eos # (Auto) 0.12 (0-0.50) K/uL Baso # (Auto) 0.02 (0-0.2) K/uL Immature Gran # (Auto) 0.05 (0.01-0.20) K/uL Sodium (136-145) mmol/L Potassium (3.5-5.1) mmol/L Chloride (98-107) mmol/L Carbon Dioxide (21-32) mmol/L Anion Gap (3-11) BUN (6-23) mg/dl Creatinine (0.6-1.2) mg/dl Est Cr Clr Drug Dosing ml/min Est GFR ( Amer) ml/min Est GFR (Non-Af Amer) ml/min BUN/Creatinine Ratio (10-20) Glucose (70-99(Fasting)) mg/dl Lactate (0.4-2.0) mmol/L Calcium (8.5-10.1) mg/dl Total Bilirubin (0.2-1.0) mg/dl AST (13-39) U/L ALT (7-52) U/L Alkaline Phosphatase (34-104) U/L Troponin I High Sens (0-14) pg/ml Total Protein (6.0-8.3) gm/dl Albumin (3.4-5.0) gm/dl Globulin (2.5-4.0) gm/dl Albumin/Globulin Ratio (0.9-2) Lipase (11-82) U/L Procalcitonin (0-0.5) ng/ml Urine Color Urine Appearance (Clear) Urine pH (4.5-7.5) Ur Specific [place] (1.000-1.030) Urine Protein (Negative) Urine Glucose (UA) (Negative) Urine Ketones (Negative) Urine Blood (Negative) Urine Nitrite (Negative) Urine Bilirubin (Negative) Urine Urobilinogen (Negative) Ur Leukocyte Esterase (Negative) Adenovirus (PCR) (NotDetected) B. pertussis DNA (PCR) (NotDetected) B.parapertussis DNA PCR (NotDetected) C. pneumoniae DNA (PCR) (NotDetected) Coronavirus OC43 (PCR) (NotDetected) Coronavirus HKU1 (PCR) (NotDetected) Coronavirus 229E (PCR) (NotDetected) SARS-CoV-2 (PCR) (NotDetected) Coronavirus NL63 (PCR) (NotDetected) Human Metapneumovir PCR (NotDetected) Influenza Type A (PCR) (NotDetected) Influenza Type B (PCR) (NotDetected) M. pneumoniae (PCR) (NotDetected) Parainfluenza 1 (PCR) (NotDetected) Parainfluenza 2 (PCR) (NotDetected) Parainfluenza 3 (PCR) (NotDetected) Parainfluenza 4 (PCR) (NotDetected) RSV (PCR) (NotDetected) Entero/Rhino (PCR) (NotDetected) Diagnostic Findings CT abd. pelvis FINDINGS: Lung bases: The heart is enlarged and without pericardial effusion. Emphysema and fibrotic changes seen at the lung bases. Postsurgical change is suggested on the right. No airspace consolidation or pleural effusion is identified. There is a small hiatal hernia. Liver: The contrast-enhanced liver is enlarged, measuring 19.3 cm in length. The liver demonstrates diffusely diminished attenuation indicating steatosis. There is no intrahepatic biliary ductal dilatation. The hepatic veins and portal veins are patent. Gallbladder: Unremarkable. Spleen: Normal in size and attenuation. Pancreas: There is moderate fatty atrophy of the pancreas. No acute abnormality is seen. Adrenal glands: Unremarkable. Kidneys: The contrast enhanced kidneys demonstrate mild cortical atrophy and are without hydronephrosis. The kidneys enhance symmetrically. A 3 mm nonobstructing calculus is seen in the left lower pole. Scattered subcentimeter cortical hypodensities likely represent cysts but are too small for definitive characterization. Abdominal vasculature: The abdominal aorta is normal in course and caliber noting advanced atherosclerotic calcification. Bowel: There is mild colonic diverticulosis without CT evidence of acute diverticulitis. No bowel obstruction is seen. The appendix is well-visualized and normal. Peritoneum: There is no intraperitoneal free air or abdominal ascites. There is a fat-containing umbilical hernia. There is laxity of the ventral abdominal wall with diastases of the rectus musculature. Lymphadenopathy: None. Pelvic viscera: The bladder is mildly distended but otherwise normal in appearance. The uterus and adnexa are normal as visualized. There are bilateral fat-containing groin hernias. Skeletal structures: The skeletal structures are osteopenic. There is mild lumbosacral spondylosis. No lytic or blastic lesions are seen. IMPRESSION: 1. No acute infectious or inflammatory findings are identified in the abdomen or pelvis. 2. Cardiomegaly and emphysema. 3. Fibrotic change at the lung bases is similar to previous. 4. Hepatomegaly and hepatic steatosis. 5. Mild colonic diverticulosis without CT evidence of acute diverticulitis. 6. Right-sided nephrolithiasis. CXR FINDINGS: An AP, portable, upright chest radiograph is compared to study dated 09/10/2021 and correlated with chest CT dated 04/16/2021. The heart is enlarged noting atherosclerotic calcification of the thoracic aorta. The pulmonary vasculature is noncongested. Emphysema with evidence of superimposed chronic interstitial/fibrotic lung disease is similar to previous. No superimposed airspace consolidation or large pleural effusion is identified. No pneumothorax is seen. The skeletal structures are osteopenic. The bony thorax is grossly intact. IMPRESSION: 1. Cardiomegaly with no acute cardiopulmonary abnormality identified. 2. Emphysema with superimposed changes of chronic interstitial/fibrotic lung disease is similar to previous.
[2022-08-22] MEDS ORDERED: ALBUTEROL HFA 8 GM INHALER INH PRN (10:42)
[2022-08-22] MEDS ORDERED: POLYETHYLENE (MIRALAX) 17 GM PACK PO PRN (10:42)
[2022-08-22] MEDS ORDERED: ALBUT/IPRATROP 3MG/0.5MG NEB 3 ML VIAL INH PRN (10:42)
[2022-08-22] MEDS: RASPBERRY SYRUP 5 ML UDP PO SCH ×2 (12:22→18:06)
[2022-08-22] MEDS: VANCOMYCIN HCL 250 MG/5 ML SOLN PO SCH ×2 (12:23→18:06)
[2022-08-22] MEDS: PANTOprazole 40 MG in SYRINGE 0 ML IV SCH ×2 (12:23→20:22)
[2022-08-22] MEDS: BENZONATATE 100 MG CAPSULE PO SCH ×2 (14:57→20:21)
--- NOTE | 2022-08-22 15:05 | Electrocardiogram Report ---
Test Reason : Blood Pressure : / mmHG Vent. Rate : 079 BPM Atrial Rate : 079 BPM P-R Int : 140 ms QRS Dur : 082 ms QT Int : 360 ms P-R-T Axes : 040 -28 039 degrees QTc Int : 412 ms Normal sinus rhythm Moderate voltage criteria for LVH, may be normal variant RSR' or QR pattern in V1 suggests right ventricular conduction delay Abnormal ECG When compared with ECG of 10-SEP-2021 23:34, No significant change was found Confirmed by Garry Haile [id number] on 08/22/2022 3:04:39 PM Referred By: Cristina Vizcarra Confirmed By:Garry Haile
[2022-08-22] MEDS: ACETAMINOPHEN 325 MG TAB PO PRN (18:06)
[2022-08-22] MEDS: MONTELUKAST SODIUM 10 MG TABLET PO SCH (20:20)
[2022-08-22] MEDS: AZELASTINE HCL 0.1% NASAL 200 SPRAYS/27,400 MCG BTL SCH (20:20)
[2022-08-22] MEDS: ADVANCED PROBIOTIC 1250 MG CAPSULE PO SCH (20:21)
[2022-08-22] MEDS: busPIRone 15 MG TAB PO SCH (20:21)
[2022-08-23] MEDS: VANCOMYCIN HCL 250 MG/5 ML SOLN PO SCH ×3 (00:08→12:53)
[2022-08-23] MEDS: RASPBERRY SYRUP 5 ML UDP PO SCH ×4 (00:08→18:00)
[2022-08-23] MEDS: ACETAMINOPHEN 325 MG TAB PO PRN (02:17)
[2022-08-23] MEDS ORDERED: PROMETHAZINE HCL 12.5 MG in SODIUM CHLORIDE 0.9% 50 ML IV STA (02:26)
[2022-08-23] MEDS: LEVOTHYROXINE SODIUM 100 MCG TABLET PO SCH (05:53)
[2022-08-23] MEDS ORDERED: PANTOprazole 40 MG TAB PO SCH (06:30)
[2022-08-23 08:18] LABS: Basophils # (auto) 0.02 K/uL (0-0.2); Basophils % (auto) 0.5 %; Eosinophils # (auto) 0.19 K/uL (0-0.50); Eosinophils % (auto) 5.2 %; Hematocrit (blood only) 40.7 % (37.0-47.0); Hemoglobin 13.4 g/dl (12.0-16.0); Immature Granulocytes # (auto) 0.02 K/uL (0.01-0.20); Immature Granulocytes % (auto) 0.5 %; Lymphocytes # (auto) 0.96 K/uL (1.2-3.4); Lymphocytes % (auto) 26.2 %; Mean Corpuscular Hemoglobin 29.6 pg (25.0-34.0); Mean Corpuscular Hgb Conc 32.9 g/dL (32.0-36.0); Mean Corpuscular Volume 89.8 fL (80.0-100.0); Mean Platelet Volume 9.4 fL (9.4-12.4); Monocytes # (auto) 0.61 K/uL (0.11-0.59); Monocytes % (auto) 16.6 %; Neutrophils # (auto) 1.87 K/uL (1.40-6.50); Platelet Count 134 K/uL (130-400); RDW Coefficient of Variation 16.4 % (11.5-14.5); RDW Standard Deviation 53.9 fL (36.4-46.3); Red Blood Count 4.53 M/uL (4.20-5.40); White Blood Count 3.67 K/ul (4.8-10.8)
[2022-08-23 08:27] LABS: Albumin Globulin Ratio 1.5 (0.9-2); Albumin Level 3.8 gm/dl (3.4-5.0); BUN Creatinine Ratio 15.7 (10-20); Bilirubin,Total 0.6 mg/dl (0.2-1.0); Calcium 9.2 mg/dl (8.5-10.1); Est GFR (African American) 81.1 ml/min; Globulin 2.5 gm/dl (2.5-4.0); Magnesium 2.2 mg/dl (1.7-2.4); Phosphorus 3.3 mg/dl (2.5-4.9); Total Protein 6.3 gm/dl (6.0-8.3)
[2022-08-23] MEDS: BENZONATATE 100 MG CAPSULE PO SCH ×2 (09:27→14:09)
[2022-08-23] MEDS: ADVANCED PROBIOTIC 1250 MG CAPSULE PO SCH (09:27)
[2022-08-23] MEDS: dilTIAZem HCL 180 MG CAPCR PO SCH (09:27)
[2022-08-23] MEDS: ASPIRIN 81 MG ECTAB PO SCH (09:27)
[2022-08-23] MEDS: busPIRone 7.5 MG TAB PO SCH (09:28)
[2022-08-23] MEDS: SERTRALINE HCL 100 MG TABLET PO SCH (09:28)
[2022-08-23] MEDS: AZELASTINE HCL 0.1% NASAL 200 SPRAYS/27,400 MCG BTL SCH (09:28)
[2022-08-23] MEDS: UMECLIDINIUM/VILANTEROL 62.5/25MCG 7 PUFFS/INHALER INH SCH (09:28)
[2022-08-23] MEDS: PANTOprazole 40 MG in SYRINGE 0 ML IV SCH (09:35)
[2022-08-23] MEDS: SUCRALFATE 1 GM/10 ML UDC PO SCH ×2 (10:37→16:09)
[2022-08-23] MEDS ORDERED: MoRPHine SULFATE 2 MG/ML CARP IV STA (11:27)
--- NOTE | 2022-08-23 11:58 | Hospitalist Progress Note ---
Date of Service August 23, 2022 Assessment & Plan (1) Abdominal pain: (2) Epigastric pain: (3) ILD (interstitial lung disease): (4) Hypothyroidism: (5) Chronic respiratory failure with hypoxia: Plan 71-year-old female with history of COPD, interstitial lung disease/pulmonary fibrosis, chronic respiratory failure with hypoxia, on 3L at baseline, presents with left sided abdominal pain for several days, epigastric discomfort, nausea, chest discomfort and fever. Patient had a loose stool earlier as well. Abd. pain/ epigastric pain, nausea, fever CT abdomen pelvis obtained 1. No acute infectious or inflammatory findings are identified in the abdomen or pelvis. 2. Cardiomegaly and emphysema. 3. Fibrotic change at the lung bases is similar to previous. 4. Hepatomegaly and hepatic steatosis. 5. Mild colonic diverticulosis without CT evidence of acute diverticulitis. 6. Right-sided nephrolithiasis. blood cultx - pending UA- negative Resp. biofire negative Stool pcr and c. diff - negative for c. diff Procal elevated at 0.64 Held azithromycin on admission given initial concern for c. diff hold diuretics for now As c. diff negative PO vanco stopped. Pt continues to have fever and abd. pain - started empiric cipro + flagyl Start PPI IV BID for GERD and added sucralfate GI consulted for further recommendations Mildly elevated troponin - secondary to above and chronic hypoxic resp. failure - cont. to monitor on tele (pt is also currently active w/ [facility] hospice) Chronic conditions Chronic respiratory failure with hypoxia, 3 L at baseline, COPD, interstitial lung disease/pulmonary fibrosis -Continue home medications -Hold azithromycin for now, as above Hypothyroidism -Continue home Synthroid HTN -Continue home medications, except for diuretics -Continue to monitor BP Dispo -patient active w/ [facility] hospice, case management involved Patient confirms DNR/DNI status Admission and Anticipated Discharge Date Admission Date: August 22, 2022 Subjective Patient seen in follow-up of abdominal pain Patient has history of COPD, interstitial lung disease, chronic respiratory failure w/ hypoxia, on 3 L of oxygen, she is also active with hospice [facility] I contacted her hospice nurse Adeline, and confirmed Patient having left-sided abdominal pain, and discussed this also with GI CT abdomen in ED unremarkable Placed initially on p.o. vancomycin for concern for C. difficile. Stool study negative for C. difficile. P.o. Vanco stopped Per RN patient had brown soft stool. Patient continues to have abdominal pain, pain meds ordered. No chest pains. Review of Systems Review of Systems: All systems reviewed & are unremarkable except as noted in Subjective Physical Exam Physical Exam: hysical Exam: Chronically ill-a ppearing,WD/WN F i n NAD on suppl. O2 Constitutional:J WD/WN, vitals as a aayush Eyes: EOMI, conjunctivae normal, anicteric sclerae ENMT: external ear and n ose normal, oropha rynx normal Neck: trachea midline, n o thyromegaly Respiratory:J normal respiratory effort Auscultat ion: + rhonchi Cardiovascular:J RRR, no murmur, no edema Chest (Breasts): Chest: normal insp ection of chest Gastrointestinal ( Abdomen): soft, obese, + marci wel sounds, L-side d and epigastr. te nderness on palpat ion Musculoskeletal: moves extremities Skin: no rashes, warm an d dry Neuro/Psych: awake, alert, answ ering simple quest ions appropriately , no face palsy, n o dysarthria, move s extremities Results & Data Results & Data ([facility]) Vital Signs (Past 12 Hours) Vital Signs Temp Pulse Pulse Resp BP Pulse Ox O2 Del Method 08/23/22 11:42 83 22 179/79 H 93 Nasal Cannula 08/23/22 11:24 113 H 22 211/95 H 97 Nasal Cannula 08/23/22 07:32 60 08/23/22 07:23 36.7 C 67 18 169/83 H 98 Nasal Cannula 08/23/22 02:48 36.8 C 66 18 124/69 97 Nasal Cannula O2 Flow Rate 08/23/22 11:42 3 08/23/22 11:24 3 08/23/22 07:32 08/23/22 07:23 3 08/23/22 02:48 3 Laboratory Results 08/23/22 08/23/22 08/23/22 Range/Units 10:40 10:40 07:39 WBC (4.8-10.8) K/ul RBC (4.20-5.40) M/uL Hgb (12.0-16.0) g/dl Hct (37.0-47.0) % MCV (80.0-100.0) fL MCH (25.0-34.0) pg MCHC (32.0-36.0) g/dL RDW Std Deviation (36.4-46.3) fL RDW Coeff of Karel (11.5-14.5) % Plt Count (130-400) K/uL MPV (9.4-12.4) fL Immature Gran % (Auto) % Neut % (Auto) % Lymph % (Auto) % Crawford % (Auto) % Eos % (Auto) % Baso % (Auto) % Neut # (Auto) (1.40-6.50) K/uL Lymph # (Auto) (1.2-3.4) K/uL Crawford # (Auto) (0.11-0.59) K/uL Eos # (Auto) (0-0.50) K/uL Baso # (Auto) (0-0.2) K/uL Immature Gran # (Auto) (0.01-0.20) K/uL Sodium 138 (136-145) mmol/L Potassium 4.0 (3.5-5.1) mmol/L Chloride 103 (98-107) mmol/L Carbon Dioxide 30 (21-32) mmol/L Anion Gap 5 (3-11) BUN 13 (6-23) mg/dl Creatinine 0.83 (0.6-1.2) mg/dl Est Cr Clr Drug Dosing 66.0 ml/min Est GFR ( Amer) 81.1 ml/min Est GFR (Non-Af Amer) 70.0 ml/min BUN/Creatinine Ratio 15.7 (10-20) Glucose 83 (70-99(Fasting)) mg/dl Calcium 9.2 (8.5-10.1) mg/dl Phosphorus 3.3 (2.5-4.9) mg/dl Magnesium 2.2 (1.7-2.4) mg/dl Total Bilirubin 0.6 (0.2-1.0) mg/dl AST 33 (13-39) U/L ALT 20 (7-52) U/L Alkaline Phosphatase 52 (34-104) U/L Total Protein 6.3 (6.0-8.3) gm/dl Albumin 3.8 (3.4-5.0) gm/dl Globulin 2.5 (2.5-4.0) gm/dl Albumin/Globulin Ratio 1.5 (0.9-2) Stl C. cayetanensis PCR Not Detected (NotDetected) Stool Rotavirus A PCR Not Detected (NotDetected) Stl Adenov F 40/41 PCR Not Detected (NotDetected) Stool Astrovirus (PCR) Not Detected (NotDetected) Stool Campylobacter PCR Not Detected (NotDetected) Stl C. diff Tox B Gene Negative Cdiff Gene (Neg) Stool Cryptosporidium PCR Not Detected (NotDetected) Stl E.coli Shiga Tox PCR Not Detected (NotDetected) Stl Enterotoxigenic E PCR Not Detected (NotDetected) Stool EPEC (PCR) Not Detected (NotDetected) Stool EAEC (PCR) Not Detected (NotDetected) Stl E. histolytica PCR Not Detected (NotDetected) Stool Giardia Lamblia PCR Not Detected (NotDetected) Stool Salmonella PCR Not Detected (NotDetected) Stool Sapovirus (PCR) Not Detected (NotDetected) Stl P. shigelloides PCR Not Detected (NotDetected) Stl Shigella/EIEC PCR Not Detected (NotDetected) St Y.enterocolitica PCR Not Detected (NotDetected) Stool Vibrio (PCR) Not Detected (NotDetected) Stl Vibrio cholerae PCR Not Detected (NotDetected) Stl Norovirus GI/GII PCR Not Detected (NotDetected) 08/23/22 Range/Units 07:39 WBC 3.67 L (4.8-10.8) K/ul RBC 4.53 (4.20-5.40) M/uL Hgb 13.4 (12.0-16.0) g/dl Hct 40.7 (37.0-47.0) % MCV 89.8 (80.0-100.0) fL MCH 29.6 (25.0-34.0) pg MCHC 32.9 (32.0-36.0) g/dL RDW Std Deviation 53.9 H (36.4-46.3) fL RDW Coeff of Karel 16.4 H (11.5-14.5) % Plt Count 134 (130-400) K/uL MPV 9.4 (9.4-12.4) fL Immature Gran % (Auto) 0.5 % Neut % (Auto) 51.0 % Lymph % (Auto) 26.2 % Crawford % (Auto) 16.6 % Eos % (Auto) 5.2 % Baso % (Auto) 0.5 % Neut # (Auto) 1.87 (1.40-6.50) K/uL Lymph # (Auto) 0.96 L (1.2-3.4) K/uL Crawford # (Auto) 0.61 H (0.11-0.59) K/uL Eos # (Auto) 0.19 (0-0.50) K/uL Baso # (Auto) 0.02 (0-0.2) K/uL Immature Gran # (Auto) 0.02 (0.01-0.20) K/uL Sodium (136-145) mmol/L Potassium (3.5-5.1) mmol/L Chloride (98-107) mmol/L Carbon Dioxide (21-32) mmol/L Anion Gap (3-11) BUN (6-23) mg/dl Creatinine (0.6-1.2) mg/dl Est Cr Clr Drug Dosing ml/min Est GFR ( Amer) ml/min Est GFR (Non-Af Amer) ml/min BUN/Creatinine Ratio (10-20) Glucose (70-99(Fasting)) mg/dl Calcium (8.5-10.1) mg/dl Phosphorus (2.5-4.9) mg/dl Magnesium (1.7-2.4) mg/dl Total Bilirubin (0.2-1.0) mg/dl AST (13-39) U/L ALT (7-52) U/L Alkaline Phosphatase (34-104) U/L Total Protein (6.0-8.3) gm/dl Albumin (3.4-5.0) gm/dl Globulin (2.5-4.0) gm/dl Albumin/Globulin Ratio (0.9-2) Stl C. cayetanensis PCR (NotDetected) Stool Rotavirus A PCR (NotDetected) Stl Adenov F 40/41 PCR (NotDetected) Stool Astrovirus (PCR) (NotDetected) Stool Campylobacter PCR (NotDetected) Stl C. diff Tox B Gene (Neg) Stool Cryptosporidium PCR (NotDetected) Stl E.coli Shiga Tox PCR (NotDetected) Stl Enterotoxigenic E PCR (NotDetected) Stool EPEC (PCR) (NotDetected) Stool EAEC (PCR) (NotDetected) Stl E. histolytica PCR (NotDetected) Stool Giardia Lamblia PCR (NotDetected) Stool Salmonella PCR (NotDetected) Stool Sapovirus (PCR) (NotDetected) Stl P. shigelloides PCR (NotDetected) Stl Shigella/EIEC PCR (NotDetected) St Y.enterocolitica PCR (NotDetected) Stool Vibrio (PCR) (NotDetected) Stl Vibrio cholerae PCR (NotDetected) Stl Norovirus GI/GII PCR (NotDetected) Medications Administered Current Inpatient Medications Acetaminophen (Acetaminophen 325 Mg Tab) 650 mg PO Q4H PRN PRN Reason: Mild Pain or Fever Stop: 09/21/22 10:27 Last Admin: 08/23/22 02:17 Dose: 650 mg Albuterol (Albut/Ipratrop 3mg/0.5mg Neb 3 Ml Vial) 3 ml INH Q8H PRN; Protocol PRN Reason: shortness of breath or wheezing Stop: 09/21/22 10:41 Albuterol (Albuterol Hfa 8 Gm Inhaler) 2 puffs INH Q4H PRN PRN Reason: Wheezing Stop: 09/21/22 10:41 Aspirin (Aspirin 81 Mg Ectab) 81 mg PO QAM [facility] Stop: 09/22/22 08:59 Last Admin: 08/23/22 09:27 Dose: 81 mg Azelastine HCl (Azelastine Hcl 0.1% Nasal 200 Sprays/27,400 Mcg Btl) 1 sprays NA BID [facility] Stop: 09/21/22 20:59 Last Admin: 08/23/22 09:28 Dose: 1 sprays Benzonatate (Benzonatate 100 Mg Capsule) 100 mg PO TID [facility] Stop: 09/21/22 13:59 Last Admin: 08/23/22 14:09 Dose: 100 mg Buspirone HCl (Buspirone 7.5 Mg Tab) 7.5 mg PO QAM [facility] Stop: 09/22/22 08:59 Last Admin: 08/23/22 09:28 Dose: 7.5 mg Buspirone HCl (Buspirone 15 Mg Tab) 15 mg PO HS [facility] Stop: 09/21/22 20:59 Last Admin: 08/22/22 20:21 Dose: 15 mg Clonidine HCl (Clonidine Hcl 0.1 Mg Tab) 0.1 mg PO BID@0800,2000 PRN PRN Reason: sbp > 150 Stop: 09/21/22 19:59 Dicyclomine HCl (Dicyclomine Hcl 10 Mg Cap) 10 mg PO BID [facility] Stop: 09/22/22 20:59 Diltiazem HCl (Diltiazem Hcl 180 Mg Capcr) 180 mg PO QAM [facility] Stop: 09/22/22 08:59 Last Admin: 08/23/22 09:27 Dose: 180 mg Pantoprazole Sodium 40 mg/ (Syringe) 10 mls @ 5 mls/min IV BID [facility] Stop: 09/21/22 12:59 Last Admin: 08/23/22 09:35 Dose: 5 mls/min Ciprofloxacin (Cipro / D5w) 400 mg in 200 mls @ 100 mls/hr IV Q12H [facility]; Protocol Stop: 08/25/22 20:14 Metronidazole (Flagyl) 500 mg in 100 mls @ 100 mls/hr IV Q8H [facility] Stop: 08/25/22 20:29 Ciprofloxacin (Cipro / D5w) 400 mg in 200 mls @ 100 mls/hr IV Q12H [facility]; Protocol Stop: 08/25/22 20:29 Lactobacillus Acidophilus (Advanced Probiotic 1250 Mg Capsule) 2 cap PO BID [facility] Stop: 09/21/22 20:59 Last Admin: 08/23/22 09:27 Dose: 2 cap Levothyroxine Sodium (Levothyroxine Sodium 100 Mcg Tablet) 100 mcg PO DAILYBB [facility] Stop: 09/22/22 06:29 Last Admin: 08/23/22 05:53 Dose: 100 mcg Montelukast Sodium (Montelukast Sodium 10 Mg Tablet) 10 mg PO HS [facility] Stop: 09/21/22 20:59 Last Admin: 08/22/22 20:20 Dose: 10 mg Morphine Sulfate (Morphine Sulfate 2 Mg/Ml Carp) 2 mg IV Q3H PRN PRN Reason: Moderate, Severe Pain Stop: 09/06/22 11:43 Last Admin: 08/23/22 16:06 Dose: 2 mg Polyethylene Glycol (Polyethylene (Miralax) 17 Gm Pack) 17 gm PO DAILY PRN PRN Reason: constipation Stop: 09/21/22 10:41 Raspberry (Raspberry Syrup 5 Ml Udp) 5 ml PO Q6 [facility] Stop: 09/01/22 11:59 Last Admin: 08/23/22 18:00 Dose: Not Given Sertraline HCl (Sertraline Hcl 100 Mg Tablet) 100 mg PO QAM [facility] Stop: 09/22/22 08:59 Last Admin: 08/23/22 09:28 Dose: 100 mg Sucralfate (Sucralfate 1 Gm/10 Ml Udc) 1 gm PO ACHS [facility] Stop: 09/22/22 11:29 Last Admin: 08/23/22 16:09 Dose: 1 gm Umeclidinium/Vilanterol (Umeclidinium/Vilanterol 62.5/25mcg 7 Puffs/Inhaler) 1 puffs INH DAILY [facility] Stop: 09/22/22 08:59 Last Admin: 08/23/22 09:28 Dose: 1 puffs
[2022-08-23] MEDS: MoRPHine SULFATE 2 MG/ML CARP IV PRN ×3 (12:55→21:15)
--- NOTE | 2022-08-23 12:57 | Gastrointestinal Consultation ---
Date of Consultation August 23, 2022 Assessment & Plan (1) Abdominal pain: Pt is a 71 yo female w ILD, COPD on chronic O2 and on home hospice seen for epigastric, L sided abd pain, associated w 1 episode of loose stools wo GI bleeding. She is reporting to me however that she feels constipated recently. Hx of esophagitis. CT abd/pelvis w contrast wo acute inflammatory/infectious changes. Stools studies pending. - Diet as tolerated - F/U stool cx and Cdiff; would recommend stopping Vancomycin unless Cdiff positive - PPI IV BID - Carafate 1g BID - Bentyl 10mg BID - Defer endoscopic workup at this time given hospice status Supervising Physician Co-Signing Physician Notes Attending attestation I have seen, examined this patient, and agree with the findings and above by our mid-level provider LINETTE Kennedy, with the following additions: Bowel regimen Soft abd History of Present Illness Reason for Consultation: Abd pain Requesting Physician: Dr. Martin Abbasi Attending Physician: Dr. Alfonso Up History of Present Illness Pt is a 71 yo female, w COPD, ILD, on home hospice who presented with c/o L sided abd & epigastric pain, n/v, chest discomfort and fever, for several days. She also reported an episode of loose stool wo rectal bleeding but now tells me she feels constipated at times. Pt on chronic O2 3L per NC. She described epigastric and L sided abd pain as burning and cramping in nature. She has the pain as soon as she eats but denies food triggers. Hx of esophagitis noted on EGD in 2017. EGDs in 2018, and 2019 were unremarkable. Colonoscopy 2017 showed diverticulosis, adenomatous colon polyp, internal hemorrhoids. Her labs are wo leukocytosis, anemia, LFTs and lipase normal. CT abd/pelvis w contrast showed no acute infectious/inflammatory changes, + hepatomegaly and hepatic steatosis, diverticulosis but no diverticulitis. Stool cx, Cdiff pending. Allergies Allergy/AdvReac Type Severity Reaction Status Date / Time baclofen Allergy Severe Unknown Verified 08/22/22 07:33 cefuroxime Allergy Severe Hives and Verified 08/22/22 07:33 Dizziness hydralazine Allergy Intermediate joint pain Verified 08/22/22 07:33 tetracycline Allergy Mild RASH Verified 08/22/22 07:33 budesonide AdvReac Severe caused her Verified 08/22/22 07:33 to cough constantly amlodipine AdvReac Mild Edema. Verified 08/22/22 07:33 Home Medications Medication Instructions Recorded Confirmed Type aspirin 81 mg tablet,delayed 81 mg PO QAM #30 tabs 03/09/19 08/22/22 History release (Lo-Dose Aspirin) buspirone 15 mg tablet 15 mg PO HS Anxiety 07/29/19 08/22/22 History loratadine 10 mg tablet (Claritin) 10 mg PO QAM 07/29/19 08/22/22 History losartan 100 mg tablet (Cozaar) 100 mg PO QAM 07/29/19 08/22/22 History pantoprazole 40 mg tablet,delayed 40 mg PO DAILYBB 07/29/19 08/22/22 History release (Protonix) CPAP Machine #1 ea 08/06/19 05/20/21 Rx diltiazem HCl 180 mg 180 mg PO QAM 08/12/19 08/22/22 History capsule,extended release 24 hr (Cartia XT) sertraline 100 mg tablet (Zoloft) 100 mg PO QAM #30 tabs 10/15/19 08/22/22 Rx montelukast 10 mg tablet 10 mg PO HS 12/06/19 08/22/22 History furosemide 20 mg tablet (Lasix) 20 mg PO DAILY 12/07/19 08/22/22 History levothyroxine 100 mcg tablet 100 mcg PO QAM 01/23/20 08/22/22 History Portable Oxygen #1 ea 04/04/20 05/20/21 Rx clonidine HCl 0.1 mg tablet 0.1 mg PO BID@0800,2000 PRN HTN 05/13/20 08/22/22 History buspirone 15 mg tablet 7.5 mg PO QAM 01/16/21 08/22/22 History gabapentin 100 mg capsule 100 mg PO HS 01/16/21 08/22/22 History polyethylene glycol 3350 17 gram 17 g PO DAILY PRN constipation #30 01/19/21 08/22/22 Rx oral powder packet (Miralax) ea donepezil 5 mg tablet (Aricept) 5 mg PO QAM 01/20/21 08/22/22 History albuterol sulfate 90 mcg/actuation 2 puff inhalation Q4H PRN Wheezing 03/17/21 08/22/22 Rx aerosol inhaler (Ventolin HFA) #18 grams ipratropium 0.5 mg-albuterol 3 mg 3 ml inhalation Q8H PRN shortness 03/17/21 08/22/22 Rx (2.5 mg base)/3 mL nebulization of breath or wheezing #270 mL soln umeclidinium 62.5 mcg-vilanterol 1 inh inhalation DAILY #60 ea 03/17/21 08/22/22 Rx 25 mcg/actuation powdr for inhalation (Anoro Ellipta) azelastine 137 mcg (0.1 %) nasal 1 spray intranasal BID 04/16/21 08/22/22 History spray aerosol docusate sodium 100 mg capsule 100 mg PO BID 04/16/21 08/22/22 History Lactobacillus acidoph-L.bulgaricus 1 tab PO BID #30 tabs 04/19/21 08/22/22 Rx 1 million cell chewable tablet (Lactinex) benzonatate 100 mg capsule 100 mg PO TID #30 caps 04/19/21 08/22/22 Rx (Tessalon Perles) azithromycin 250 mg tablet 250 mg PO MOWEFR 08/22/22 08/22/22 History (Zithromax) Patient History Medical History (Updated 08/24/22 @ 10:04 by Jose Viramontes MD) Anxiety and depression Axillary lymphadenopathy Chronic back pain Chronic respiratory failure with hypoxia CKD (chronic kidney disease), stage III stage 3. follows with pcp. COPD (chronic obstructive pulmonary disease) Degenerative disc disease GERD (gastroesophageal reflux disease) History of breast cancer bilateral HTN (hypertension) Hx of duodenal ulcer Hyperlipidemia Hypothyroidism ILD (interstitial lung disease) Mild cognitive impairment On home oxygen therapy 2lpm via n/c continuous BERNA (obstructive sleep apnea) cpap Osteoarthritis Prediabetes Pulmonary fibrosis Restless legs syndrome hx SCC (squamous cell carcinoma) face Surgical History History of bilateral tubal ligation History of bronchoscopy History of cardiac cath no stents. (~1979) History of colonoscopy History of esophagogastroduodenoscopy (EGD) History of lung surgery thorascopy for lung biopsy S/P mastectomy, bilateral lymph node removal Left arm S/P thyroidectomy partial (r/t nodule) Family History Sister Myocardial infarction Sister Stroke Other No family history of adverse response to anesthesia Social History Smoking Status: Former smoker Tobacco Type: Cigarettes Cigarettes Per Day: 50 pack yr hx; Second Hand Exposure: No; Do You Dip or Chew Tobacco: No; Hx Alcohol Use: No Hx Substance Use: No Preferred Language: Ghanaian Communication Ability: Effective Hunter Guide Required: No Beliefs That Will Affect Care: None marital status: Current Living Situation: Alone Current Living Situation Comment: Senior apartment building How many Children do You have: 2 Feels Safe at Home: Yes Assistive Devices: Oxygen - Continuous and Walker Review of Systems Review of Systems: All systems reviewed & are unremarkable except as noted in HPI & below Physical Exam Constitutional: WD/WN, vitals as above well groomed, cooperative and comfortable Eyes: PERRL, conjunctivae normal, anicteric sclerae ENMT: external ear and nose normal, oropharynx normal Respiratory: normal respiratory effort, lungs clear to auscultation Cardiovascular: RRR, no murmur, no edema Gastrointestinal (Abdomen): epigastric, LUQ abd TTP, no guarding, soft, BS present Skin: no rashes, warm and dry Psychiatric: A+Ox3, euthymic affect Lymphatic: no lymphedema Results & Data ([facility]) Vital Signs (Past 12 Hours) Vital Signs Temp Pulse Pulse Resp BP Pulse Ox O2 Del Method 08/23/22 08:15 Nasal Cannula 08/23/22 11:42 83 22 179/79 H 93 Nasal Cannula 08/23/22 11:24 113 H 22 211/95 H 97 Nasal Cannula 08/23/22 07:32 60 08/23/22 07:23 36.7 C 67 18 169/83 H 98 Nasal Cannula 08/23/22 02:48 36.8 C 66 18 124/69 97 Nasal Cannula O2 Flow Rate 08/23/22 08:15 3 08/23/22 11:42 3 08/23/22 11:24 3 08/23/22 07:32 08/23/22 07:23 3 08/23/22 02:48 3
[2022-08-23 13:12] LABS: Adenovirus F 40/41 PCR Not Detected (NotDetected); Astrovirus PCR Not Detected (NotDetected); Campylobacter PCR Not Detected (NotDetected); Cryptosporidium PCR Not Detected (NotDetected); Cyclospora cayetanensis PCR Not Detected (NotDetected); Entamoeba histolytica PCR Not Detected (NotDetected); Enteroaggregative E.coli(EAEC) Not Detected (NotDetected); Enteropathogenic E.coli (EPEC) Not Detected (NotDetected); Enterotoxigenic E.coli (ETEC) Not Detected (NotDetected); Giardia lamblia PCR Not Detected (NotDetected); Norovirus GI/GII PCR Not Detected (NotDetected); Plesiomonas shigelloides PCR Not Detected (NotDetected); Rotavirus A PCR Not Detected (NotDetected); Salmonella PCR Not Detected (NotDetected); Sapovirus PCR Not Detected (NotDetected); Shiga-like Toxin E.coli (STEC) Not Detected (NotDetected); Shigella/Enteroinvasive E.coli Not Detected (NotDetected); Vibrio cholerae PCR Not Detected (NotDetected); Vibrio species PCR Not Detected (NotDetected); Yersinia enterocolitica PCR Not Detected (NotDetected)
[2022-08-23] MEDS ORDERED: CIPROFLOXACIN / D5W 400 MG/200 ML BAG IV SCH (20:15)
[2022-08-23] MEDS ORDERED: METHADONE HCL 5 MG TAB PO SCH (21:00)
[2022-08-23] MEDS ORDERED: ONDANSETRON INJ 2 MG/ML 2 ML VIAL ONE (21:19)
[2022-08-23] MEDS: ONDANSETRON INJ 2 MG/ML 2 ML VIAL IV PRN (21:21)
[2022-08-23] MEDS ORDERED: OPTIRAY 320 500ml IV ONE (22:16)
[2022-08-23] MEDS ORDERED: LABETALOL HCL IV 5 MG/ML 20ML IV STA (23:00)
[2022-08-23] MEDS ORDERED: LABETALOL HCL IV 5 MG/ML 20ML IV ONE (23:02)
[2022-08-24] MEDS ORDERED: LABETALOL HCL IV 5 MG/ML 20ML IV PRN (00:03)
[2022-08-24] MEDS ORDERED: PHARMACIST DISCHARGE MED REC CONSULT PRN (00:03)
[2022-08-24] MEDS: CIPROFLOXACIN / D5W 400 MG/200 ML BAG IV SCH ×3 (00:15→19:26)
[2022-08-24] MEDS: metroNIDAZOLE 500 MG/100 ML BAG IV SCH ×4 (00:15→19:26)
[2022-08-24] MEDS: AZELASTINE HCL 0.1% NASAL 200 SPRAYS/27,400 MCG BTL SCH ×3 (00:23→20:55)
[2022-08-24] MEDS: PANTOprazole 40 MG in SYRINGE 0 ML IV SCH ×3 (00:24→20:55)
[2022-08-24] MEDS: busPIRone 15 MG TAB PO SCH ×2 (00:24→20:55)
[2022-08-24] MEDS: MONTELUKAST SODIUM 10 MG TABLET PO SCH ×2 (00:24→20:55)
[2022-08-24] MEDS: BENZONATATE 100 MG CAPSULE PO SCH ×4 (00:24→20:55)
[2022-08-24] MEDS: DICYCLOMINE HCL 10 MG CAP PO SCH ×3 (00:24→20:55)
[2022-08-24] MEDS: ADVANCED PROBIOTIC 1250 MG CAPSULE PO SCH ×3 (00:24→20:55)
[2022-08-24] MEDS: SUCRALFATE 1 GM/10 ML UDC PO SCH ×5 (00:33→20:55)
[2022-08-24] MEDS: MoRPHine SULFATE 2 MG/ML CARP IV PRN ×3 (01:36→19:32)
[2022-08-24] MEDS: SODIUM CHLORIDE 0.9% 1000ML 1,000 ML IV SCH ×2 (01:37→13:00)
[2022-08-24] MEDS: RASPBERRY SYRUP 5 ML UDP PO SCH ×3 (01:37→13:12)
[2022-08-24] MEDS: cloNIDine HCL 0.1 MG TAB PO PRN ×2 (03:00→19:18)
[2022-08-24] MEDS: LEVOTHYROXINE SODIUM 100 MCG TABLET PO SCH (06:19)
--- NOTE | 2022-08-24 06:32 | Communication Note ---
Date of Service: August 24, 2022 Last night patient was having stroke like symptoms and stroke alert was called. Around 9:56pm last night was notified that patient was having decreased sensations on left side and some left side weakness. Saw the patient.Seemed Alert and oriented, Speech clear,No facial droop, obeying commands, weakness noted on left side and decreased sensation on left side.BP was 206/90. Stroke alert was called. Stat ct head, CTA head and neck were done . [facility] Neurologist examined the patient. Initially planned to give TNK and a dose of iv labetalol given to bring down BP..But again further questioning the patient could not exactly determine the last well known time. Ct head, CTA head and neck were ok. Then [facility] Neurologist decided not to give TNK. Advised for SBP to keep under 180 and to do MRI if ok with patient and family. Ordered MRI and full stroke orders and transferred to [facility] for close monitoring.Notified son of the events.
[2022-08-24] MEDS ORDERED: GADOBUTROL 65ML VIAL IV ONE (06:57)
--- NOTE | 2022-08-24 07:26 | Magnetic Resonance Report ---
MRI OF THE BRAIN WITHOUT AND WITH IV CONTRAST CLINICAL HISTORY: Left-sided numbness. Stroke like symptoms. COMPARISON STUDY: Head CT and CTA of the head August 23, 2022 MRI of the brain January 25, 2012. TECHNIQUE: Utilizing a 1.5 Maricruz magnet and dedicated coil, multiplanar, multiecho imaging of the br ain was performed pre and postcontrast administration. IV administration of 8 mL of Gadavist contras t was uneventful. Thin cut T1 post contrast imaging was performed. FINDINGS: There are no foci of restricted diffusion to suggest acute infarct. No acute intracranial h emorrhage, midline shift or mass effect is present. Ventricular system is unremarkable. Basal cistern s are patent. There are no extra-axial collections. Flow-voids for the major intracranial vessels are present. No intracranial mass or pathologic enhancement is present. Post contrast images are mildly compromised by motion artifact. Multiple small white matter T2 hyperintense foci favor small vessel d isease. Calvarial signal is normal. There is no evidence for sinusitis. IMPRESSION: 1. No acute intracranial findings. 2. No intracranial mass or pathologic enhancement. ACT 112: Negative or not required by law. Electronically signed by: Devan Keating M.D. 08/24/2022 7:24 AM
--- NOTE | 2022-08-24 07:34 | CT Scan Report ---
UNENHANCED CT OF THE BRAIN; CT ANGIOGRAM OF THE BRAIN; CT ANGIOGRAM OF THE NECK CLINICAL HISTORY: Left-sided numbness. Stroke like symptoms. COMPARISON STUDY: CT of the brain dated 01/16/2021. TECHNIQUE: Unenhanced axial CT scan of the brain is performed. Subsequently, following the IV adminis tration of 111 of [address] 320, CT angiogram of the head and neck was performed from the aortic arch t o the vertex. Images are reviewed in the axial, sagittal, and coronal planes. 3-D MIPS images are cre ated and assessed. IV contrast was administered without complication. All measurements were calculate d based on NASCET criteria. A dose lowering technique was utilized adhering to the principles of ALA RA. CT DOSE: 1504.39 mGy.cm FINDINGS: Brain parenchyma: There is age-related involutional change noting mild subcortical and periventricula r microangiopathic disease. There is no hemorrhage, mass effect, or evidence of acute territorial isc hemia by CT criteria. There is no evidence of enhancing mass lesion on the angiogram phase images. Th e ventricles, sulci, and cisterns are normal in configuration. Arreguin-white matter differentiation is p reserved. No extra-axial fluid collection is seen. Thoracic aorta: There is atherosclerotic calcification of the thoracic aorta. Visualized portions of the thoracic aorta are normal in caliber. The aortic arch demonstrates standard 3-vessel anatomy. Right carotid arterial system: The right common carotid artery is widely patent, as are the right int ernal and external carotid arteries. Atherosclerotic plaque in the carotid bulb and proximal ICA caus es less than 50% focal stenosis. Left carotid arterial system: The left common carotid artery is widely patent, as are the left internet cafe manager al and external carotid arteries. Atherosclerotic plaque is noted in the carotid bulb. Vertebral arteries: The vertebral arteries are widely patent bilaterally noting left-sided dominance. Subclavian arteries: Widely patent bilaterally. Intracranial vasculature: There is atherosclerotic calcification of the cavernous carotid arteries. T he [place] of [place] is developmentally complete. The internal carotid arteries are patent at the skul l base, as are the anterior and middle cerebral arteries bilaterally. The vertebrobasilar system and posterior cerebral arteries are widely patent. The left vertebral artery is dominant. 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 This is best seen on axial im age #42. No additional aneurysm is identified. No high-grade stenosis or focal vessel cut off seen th roughout the intracranial circulation. Jugular veins: Patent bilaterally. Dural sinuses: Patent. Upper chest: Emphysema and fibrotic changes present in the upper lobes. There is no superimposed airs pace consolidation to suggest pneumonia. Enlarged mediastinal lymph nodes measure up to 14 mm short a xis. These are likely related to chronic lung disease. Soft tissues: The visualized pharyngeal soft tissues are normal in appearance noting angiographic pha se technique. The oropharyngeal airway appears widely patent. The thyroid gland is atrophic and heter ogeneous. The salivary glands are normal in appearance. No cervical lymphadenopathy is seen. Skeletal structures: The skeletal structures are osteopenic. The calvarium appears intact. The cervic al spine is maintains noting mild multilevel spondylosis. No lytic or blastic lesion is seen Orbits: The bony orbits are intact. Orbital contents are normal as visualized noting bilateral ocular lens implants. Sinuses and mastoids: The paranasal sinuses are clear. The mastoid air cells are well pneumatized. IMPRESSION: 1. There is no hemorrhage, mass effect, or evidence of acute territorial ischemia by CT criteria. 2. 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 3. Otherwise unremarkable CT angiograms of the head and neck. 4. Emphysema and fibrotic change is noted at the lung apices. ACT 112: Negative or not required by law. Electronically signed by: Edi Figueroa M.D. 08/24/2022 7:31 AM
[2022-08-24] MEDS: SERTRALINE HCL 100 MG TABLET PO SCH (08:13)
[2022-08-24] MEDS: ASPIRIN 81 MG ECTAB PO SCH (08:13)
[2022-08-24] MEDS: busPIRone 7.5 MG TAB PO SCH (08:13)
[2022-08-24] MEDS: UMECLIDINIUM/VILANTEROL 62.5/25MCG 7 PUFFS/INHALER INH SCH (08:14)
[2022-08-24] MEDS: dilTIAZem HCL 180 MG CAPCR PO SCH (08:14)
--- NOTE | 2022-08-24 08:59 | Hospitalist Progress Note ---
Date of Service August 24, 2022 Assessment & Plan (1) Abdominal pain: (2) Epigastric pain: (3) ILD (interstitial lung disease): (4) Hypothyroidism: (5) Chronic respiratory failure with hypoxia: Plan 71-year-old female with history of COPD, interstitial lung disease/pulmonary fibrosis, chronic respiratory failure with hypoxia, on 3L at baseline, presents with left sided abdominal pain for several days, epigastric discomfort, nausea, chest discomfort and fever. Patient had a loose stool earlier as well. Abd. pain/ epigastric pain, nausea, fever CT abdomen pelvis obtained 1. No acute infectious or inflammatory findings are identified in the abdomen or pelvis. 2. Cardiomegaly and emphysema. 3. Fibrotic change at the lung bases is similar to previous. 4. Hepatomegaly and hepatic steatosis. 5. Mild colonic diverticulosis without CT evidence of acute diverticulitis. 6. Right-sided nephrolithiasis. blood cultx - pending UA- negative Resp. biofire negative Stool pcr and c. diff - negative Procal elevated at 0.64 Held azithromycin on admission given initial concern for c. diff hold diuretics for now As c. diff negative PO vanco stopped. Pt continued to have fever and abd. pain - started empiric cipro + flagyl Started PPI IV BID for GERD/esophagitis and added sucralfate GI consulted for further recommendations - in addition to PPI and sucralfate, added Bentyl Do not recommend endoscopy, pls see their note for further detail 08/24 abdominal pain much improved, patient is tolerating some diet, and afebrile now Mildly elevated troponin - secondary to above and chronic hypoxic resp. failure - cont. to monitor on tele (pt is also currently active / [facility] hospice) Stroke alert -Patient was stroke alert overnight, had weakness, decreased sensation on the left side at [address] head, CTA head and neck obtained 1. There is no hemorrhage, mass effect, or evidence of acute territorial ischemia by CT criteria. 2. 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 3. Otherwise unremarkable CT angiograms of the head and neck. 4. Emphysema and fibrotic change is noted at the lung apices. TNK not given per Al[facility] neurology MRI brain obtained 1. No acute intracranial findings. 2. No intracranial mass or pathologic enhancement. Neurology consulted -currently no neurological symptoms, besides vague fingertip paresthesia, not suggestive of stroke, likely peripheral process in nature Chronic conditions Chronic respiratory failure with hypoxia, 3 L at baseline, COPD, interstitial lung disease/pulmonary fibrosis -Continue home medications -Hold azithromycin for now, as above Hypothyroidism -Continue home Synthroid HTN -Continue home medications, except for diuretics -Continue to monitor BP Dispo -patient active w/ [facility] hospice, case management involved Patient confirms DNR/DNI status Admission and Anticipated Discharge Date Admission Date: August 22, 2022 Subjective Patient seen in follow-up of abdominal pain Patient has history of COPD, interstitial lung disease, chronic respiratory failure w/ hypoxia, on 3 L of oxygen, she is also active with hospice [facility] for resp. failure I contacted her hospice nurse Adeline, and confirmed Patient having left-sided abdominal pain, and GI was also consulted CT abdomen in ED unremarkable stool pcr negative Per RN patient had brown soft stool. Overnight patient was a stroke alert. CT head, CTA head and neck obtained. Brain MRI obtained and negative. Neurology consult was placed by commercial attache. Currently patient is sitting up in chair, in no acute distress. Feeling much better overall. She has no neurologic deficits, only mild tingling in left hand fingers Abdominal pain much improved, she is actually eating breakfast No fevers chills chest pain increased shortness of breath Review of Systems Review of Systems: All systems reviewed & are unremarkable except as noted in Subjective Physical Exam Physical Exam: hysical Exam: Chronically ill-a ppearing,WD/WN F i n NAD on suppl. O2 Constitutional:J WD/WN, vitals as a aayush Eyes: EOMI, conjunctivae normal, anicteric sclerae ENMT: external ear and n ose normal, oropha rynx normal Neck: supple Respiratory: normal respiratory effort Auscultat ion: + mild rhonch i Cardiovascular:J RRR, no murmur, no edema Chest (Breasts): Chest: normal insp ection of chest Gastrointestinal ( Abdomen): soft, obese, + marci wel sounds, L-side d and epigastr. te nderness on palpat ion (improved) Musculoskeletal: moves extremities Skin: no rashes, warm an d dry Neuro/Psych: awake, alert, answ ering simple quest ions appropriately , no face palsy, n o dysarthria, move s extremities Results & Data Results & Data ([facility]) Vital Signs (Past 12 Hours) Vital Signs Temp Pulse Resp BP Pulse Ox O2 Del Method O2 Flow Rate 08/24/22 08:12 36.9 C 72 14 142/77 H 92 Nasal Cannula 4 08/24/22 02:49 37.2 C 62 17 151/73 H 95 Nasal Cannula 4 08/24/22 00:00 Nasal Cannula 4 08/24/22 00:00 36.7 C 70 18 147/71 H 94 Nasal Cannula 4 08/23/22 23:16 67 15 157/79 H 93 Nasal Cannula 4 08/23/22 23:10 68 16 128/101 H 08/23/22 22:47 82 23 197/94 H 96 Oxymask 4 08/23/22 22:41 84 22 194/99 H 93 Nasal Cannula 4 08/23/22 21:58 85 201/97 H 08/23/22 21:50 91 H 203/102 H 08/23/22 21:35 81 180/83 H Laboratory Results 08/23/22 08/23/22 08/23/22 Range/Units 23:20 22:07 10:40 POC Glucose 91 (70-99) mg/dl Troponin I High Sens 18.0 H D (0-14) pg/ml Stl C. cayetanensis PCR (NotDetected) Stool Rotavirus A PCR (NotDetected) Stl Adenov F 40/41 PCR (NotDetected) Stool Astrovirus (PCR) (NotDetected) Stool Campylobacter PCR (NotDetected) Stl C. diff Tox B Gene Negative Cdiff Gene (Neg) Stool Cryptosporidium PCR (NotDetected) Stl E.coli Shiga Tox PCR (NotDetected) Stl Enterotoxigenic E PCR (NotDetected) Stool EPEC (PCR) (NotDetected) Stool EAEC (PCR) (NotDetected) Stl E. histolytica PCR (NotDetected) Stool Giardia Lamblia PCR (NotDetected) Stool Salmonella PCR (NotDetected) Stool Sapovirus (PCR) (NotDetected) Stl P. shigelloides PCR (NotDetected) Stl Shigella/EIEC PCR (NotDetected) St Y.enterocolitica PCR (NotDetected) Stool Vibrio (PCR) (NotDetected) Stl Vibrio cholerae PCR (NotDetected) Stl Norovirus GI/GII PCR (NotDetected) 08/23/22 Range/Units 10:40 POC Glucose (70-99) mg/dl Troponin I High Sens (0-14) pg/ml Stl C. cayetanensis PCR Not Detected (NotDetected) Stool Rotavirus A PCR Not Detected (NotDetected) Stl Adenov F 40/ PCR Not Detected (NotDetected) Stool Astrovirus (PCR) Not Detected (NotDetected) Stool Campylobacter PCR Not Detected (NotDetected) Stl C. diff Tox B Gene (Neg) Stool Cryptosporidium PCR Not Detected (NotDetected) Stl E.coli Shiga Tox PCR Not Detected (NotDetected) Stl Enterotoxigenic E PCR Not Detected (NotDetected) Stool EPEC (PCR) Not Detected (NotDetected) Stool EAEC (PCR) Not Detected (NotDetected) Stl E. histolytica PCR Not Detected (NotDetected) Stool Giardia Lamblia PCR Not Detected (NotDetected) Stool Salmonella PCR Not Detected (NotDetected) Stool Sapovirus (PCR) Not Detected (NotDetected) Stl P. shigelloides PCR Not Detected (NotDetected) Stl Shigella/EIEC PCR Not Detected (NotDetected) St Y.enterocolitica PCR Not Detected (NotDetected) Stool Vibrio (PCR) Not Detected (NotDetected) Stl Vibrio cholerae PCR Not Detected (NotDetected) Stl Norovirus GI/GII PCR Not Detected (NotDetected) Medications Administered Current Inpatient Medications Acetaminophen (Acetaminophen 325 Mg Tab) 650 mg PO Q4H PRN PRN Reason: Mild Pain or Fever Stop: 09/21/22 10:27 Last Admin: 08/23/22 02:17 Dose: 650 mg Albuterol (Albut/Ipratrop 3mg/0.5mg Neb 3 Ml Vial) 3 ml INH Q8H PRN; Protocol PRN Reason: shortness of breath or wheezing Stop: 09/21/22 10:41 Albuterol (Albuterol Hfa 8 Gm Inhaler) 2 puffs INH Q4H PRN PRN Reason: Wheezing Stop: 09/21/22 10:41 Aspirin (Aspirin 81 Mg Ectab) 81 mg PO QAM [facility] Stop: 09/22/22 08:59 Last Admin: 08/24/22 08:13 Dose: 81 mg Azelastine HCl (Azelastine Hcl 0.1% Nasal 200 Sprays/27,400 Mcg Btl) 1 sprays NA BID [facility] Stop: 09/21/22 20:59 Last Admin: 08/24/22 08:14 Dose: 1 sprays Benzonatate (Benzonatate 100 Mg Capsule) 100 mg PO TID [facility] Stop: 09/21/22 13:59 Last Admin: 08/24/22 08:14 Dose: 100 mg Buspirone HCl (Buspirone 7.5 Mg Tab) 7.5 mg PO QAM [facility] Stop: 09/22/22 08:59 Last Admin: 08/24/22 08:13 Dose: 7.5 mg Buspirone HCl (Buspirone 15 Mg Tab) 15 mg PO HS [facility] Stop: 09/21/22 20:59 Last Admin: 08/24/22 00:24 Dose: 15 mg Clonidine HCl (Clonidine Hcl 0.1 Mg Tab) 0.1 mg PO BID@0800,2000 PRN PRN Reason: sbp > 150 Stop: 09/21/22 19:59 Last Admin: 08/24/22 03:00 Dose: 0.1 mg Dicyclomine HCl (Dicyclomine Hcl 10 Mg Cap) 10 mg PO BID [facility] Stop: 09/22/22 20:59 Last Admin: 08/24/22 08:13 Dose: 10 mg Diltiazem HCl (Diltiazem Hcl 180 Mg Capcr) 180 mg PO QAM [facility] Stop: 09/22/22 08:59 Last Admin: 08/24/22 08:14 Dose: 180 mg Pantoprazole Sodium 40 mg/ (Syringe) 10 mls @ 5 mls/min IV BID [facility] Stop: 09/21/22 12:59 Last Admin: 08/24/22 08:13 Dose: 5 mls/min Metronidazole (Flagyl) 500 mg in 100 mls @ 100 mls/hr IV Q8H [facility] Stop: 08/25/22 20:29 Last Infusion: 08/24/22 06:23 Dose: 0 mls/hr Ciprofloxacin (Cipro / D5w) 400 mg in 200 mls @ 100 mls/hr IV Q12H [facility]; Protocol Stop: 08/25/22 20:29 Last Admin: 08/24/22 08:15 Dose: 100 mls/hr Sodium Chloride (Nss 1000ml) 1,000 mls @ 100 mls/hr IV .Q10H [facility] Stop: 09/23/22 00:02 Last Infusion: 08/24/22 08:15 Dose: 100 mls/hr Labetalol HCl (Labetalol Hcl Iv 5 Mg/Ml 20ml) 10 mg IV Q4H PRN PRN Reason: Hypertension Stop: 09/23/22 00:02 Lactobacillus Acidophilus (Advanced Probiotic 1250 Mg Capsule) 2 cap PO BID [facility] Stop: 09/21/22 20:59 Last Admin: 08/24/22 08:13 Dose: 2 cap Levothyroxine Sodium (Levothyroxine Sodium 100 Mcg Tablet) 100 mcg PO DAILYBB [facility] Stop: 09/22/22 06:29 Last Admin: 08/24/22 06:19 Dose: 100 mcg Miscellaneous Information (Pharmacist Discharge Med Rec Consult) 1 each N/A UD PRN PRN Reason: Consult Stop: 09/23/22 00:02 Montelukast Sodium (Montelukast Sodium 10 Mg Tablet) 10 mg PO HS [facility] Stop: 09/21/22 20:59 Last Admin: 08/24/22 00:24 Dose: 10 mg Morphine Sulfate (Morphine Sulfate 2 Mg/Ml Carp) 2 mg IV Q3H PRN PRN Reason: Moderate, Severe Pain Stop: 09/06/22 11:43 Last Admin: 08/24/22 06:14 Dose: 2 mg Ondansetron HCl (Ondansetron Inj 2 Mg/Ml 2 Ml Vial) 4 mg IV Q6H PRN PRN Reason: Nausea And Vomiting Stop: 09/22/22 21:14 Last Admin: 08/23/22 21:21 Dose: 4 mg Polyethylene Glycol (Polyethylene (Miralax) 17 Gm Pack) 17 gm PO DAILY PRN PRN Reason: constipation Stop: 09/21/22 10:41 Raspberry (Raspberry Syrup 5 Ml Udp) 5 ml PO Q6 [facility] Stop: 09/01/22 11:59 Last Admin: 08/24/22 05:48 Dose: Not Given Sertraline HCl (Sertraline Hcl 100 Mg Tablet) 100 mg PO QAM [facility] Stop: 09/22/22 08:59 Last Admin: 08/24/22 08:13 Dose: 100 mg Sucralfate (Sucralfate 1 Gm/10 Ml Udc) 1 gm PO ACHS [facility] Stop: 09/22/22 11:29 Last Admin: 08/24/22 08:14 Dose: 1 gm Umeclidinium/Vilanterol (Umeclidinium/Vilanterol 62.5/25mcg 7 Puffs/Inhaler) 1 puffs INH DAILY [facility] Stop: 09/22/22 08:59 Last Admin: 08/24/22 08:14 Dose: 1 puffs
[2022-08-24 09:45] LABS: Hematocrit (blood only) 38.3 % (37.0-47.0); Hemoglobin 12.7 g/dl (12.0-16.0); Mean Corpuscular Hemoglobin 29.3 pg (25.0-34.0); Mean Corpuscular Hgb Conc 33.2 g/dL (32.0-36.0); Mean Corpuscular Volume 88.5 fL (80.0-100.0); Mean Platelet Volume 10.3 fL (9.4-12.4); Platelet Count 136 K/uL (130-400); RDW Coefficient of Variation 15.9 % (11.5-14.5); RDW Standard Deviation 51.3 fL (36.4-46.3); Red Blood Count 4.33 M/uL (4.20-5.40)
--- NOTE | 2022-08-24 10:01 | Neurology Consultation ---
Date of Consultation August 24, 2022 Assessment & Plan (1) Numbness: Plan NEUROLOGY CONSULTATION Assessment & Plan: Impression: pt with essentially resolved left arm symptoms and vague finger tip paresthesia that is not very suggestive of stroke. likely peripheral process in nature. mri brain negative. Recommendations: no further stroke work up needed. continue routine stroke riks modifications as now. will sign off. Dr. Jose Viramontes MD [facility] Chief Complaint: weakness History of Present Illness: pt with brief feeling of left arm numbness and weakness last night. mri brain negative. pt this morning feeling well. some tingling in her finger tips. Admission/Initial HPI documentation: 71 yo female, with history of COPD, interstitial lung disease/pulmonary fibrosis, chronic respiratory failure with hypoxia, on 3L at baseline, presents with left sided abdominal pain for several days, epigastric discomfort, nausea, chest discomfort and fever. Patient had a loose stool earlier as well. CT abdomen pelvis obtained, chest x-ray obtained, however unremarkable. Blood cultures obtained given fever. Respiratory bio fire obtained and negative. Lactate negative. Mildly elevated troponin noted in ED in 20s. She received GI cocktail, morphine, IV Tylenol and some fluid in the ED. Patient tells me that she is always somewhat short of breath, due to her interstitial disease. She tells me she has been desaturating quite a bit with ambulation, even more than usual. Then she also developed left-sided abdominal pain several days ago, and epigastric discomfort, which she reports to have on and off for a long time. She also reports some chest discomfort/pain on and off, which also has been ongoing for a long time now. Currently denies any chest pain. Abdominal pain improved after medications received in the ED. When I questioned her if she mentioned her symptoms to anyone , such as pcp she told me that she said this to her hospice nurse. (At this moment trying to confirm the information about the hospice from the ED provider/business improvement manager/floor protective services case worker). Patient tells me that she cannot confirm all her medications, however says that she has been on azithromycin Tuesday. She is not aware of any history of C. difficile. Discussed that we will check stool studies and will check also for C. difficile. Pro-Syed also ordered. Past Medical History: See chart Meds: See chart I personally reviewed all of the medications Social & Family History: See chart Review of Systems: Per initial HPI on admission. Physical Exam: GEN: NAD HEENT: Normocephalic Neuro: Mental status:A & O x 3.No dysarthria or aphasia.No neglect. Fluent speech. No apraxia Cranial Nerves:II-XII intact Motor:Normal bulk and tone,5/5 strength x 4 extremities Coordination:Intact Reflexes: down going toes maricruz Sensation: Intact x 4 extremities to touch Chart reviewed I have spent more than 50% educating patient about potential diagnosis and neurological evaluation and coordinating care with patient's treatment team. Total time spent (including chart review and coordination of care): 80 min (this includes chart review). History of Present Illness Attending Physician: Martin Abbasi MD Allergies Allergy/AdvReac Type Severity Reaction Status Date / Time baclofen Allergy Severe Unknown Verified 08/22/22 07:33 cefuroxime Allergy Severe Hives and Verified 08/22/22 07:33 Dizziness hydralazine Allergy Intermediate joint pain Verified 08/22/22 07:33 tetracycline Allergy Mild RASH Verified 08/22/22 07:33 budesonide AdvReac Severe caused her Verified 08/22/22 07:33 to cough constantly amlodipine AdvReac Mild Edema. Verified 08/22/22 07:33 Home Medications Medication Instructions Recorded Confirmed Type aspirin 81 mg tablet,delayed 81 mg PO QAM #30 tabs 03/09/19 08/22/22 History release (Lo-Dose Aspirin) buspirone 15 mg tablet 15 mg PO HS Anxiety 07/29/19 08/22/22 History loratadine 10 mg tablet (Claritin) 10 mg PO QAM 07/29/19 08/22/22 History losartan 100 mg tablet (Cozaar) 100 mg PO QAM 07/29/19 08/22/22 History pantoprazole 40 mg tablet,delayed 40 mg PO DAILYBB 07/29/19 08/22/22 History release (Protonix) CPAP Machine #1 ea 08/06/19 05/20/21 Rx diltiazem HCl 180 mg 180 mg PO QAM 08/12/19 08/22/22 History capsule,extended release 24 hr (Cartia XT) sertraline 100 mg tablet (Zoloft) 100 mg PO QAM #30 tabs 10/15/19 08/22/22 Rx montelukast 10 mg tablet 10 mg PO HS 12/06/19 08/22/22 History furosemide 20 mg tablet (Lasix) 20 mg PO DAILY 12/07/19 08/22/22 History levothyroxine 100 mcg tablet 100 mcg PO QAM 01/23/20 08/22/22 History Portable Oxygen #1 ea 04/04/20 05/20/21 Rx clonidine HCl 0.1 mg tablet 0.1 mg PO BID@0800,2000 PRN HTN 05/13/20 08/22/22 History buspirone 15 mg tablet 7.5 mg PO QAM 01/16/21 08/22/22 History gabapentin 100 mg capsule 100 mg PO HS 01/16/21 08/22/22 History polyethylene glycol 3350 17 gram 17 g PO DAILY PRN constipation #30 01/19/21 08/22/22 Rx oral powder packet (Miralax) ea donepezil 5 mg tablet (Aricept) 5 mg PO QAM 01/20/21 08/22/22 History albuterol sulfate 90 mcg/actuation 2 puff inhalation Q4H PRN Wheezing 03/17/21 08/22/22 Rx aerosol inhaler (Ventolin HFA) #18 grams ipratropium 0.5 mg-albuterol 3 mg 3 ml inhalation Q8H PRN shortness 03/17/21 08/22/22 Rx (2.5 mg base)/3 mL nebulization of breath or wheezing #270 mL soln umeclidinium 62.5 mcg-vilanterol 1 inh inhalation DAILY #60 ea 03/17/21 08/22/22 Rx 25 mcg/actuation powdr for inhalation (Anoro Ellipta) azelastine 137 mcg (0.1 %) nasal 1 spray intranasal BID 04/16/21 08/22/22 History spray aerosol docusate sodium 100 mg capsule 100 mg PO BID 04/16/21 08/22/22 History Lactobacillus acidoph-L.bulgaricus 1 tab PO BID #30 tabs 04/19/21 08/22/22 Rx 1 million cell chewable tablet (Lactinex) benzonatate 100 mg capsule 100 mg PO TID #30 caps 04/19/21 08/22/22 Rx (Tessalyogesh Vargas) azithromycin 250 mg tablet 250 mg PO MOWEFR 08/22/22 08/22/22 History (Zithromax) Patient History Medical History (Updated 08/24/22 @ 10:04 by Jose Viramontes MD) Anxiety and depression Axillary lymphadenopathy Chronic back pain Chronic respiratory failure with hypoxia CKD (chronic kidney disease), stage III stage 3. follows with pcp. COPD (chronic obstructive pulmonary disease) Degenerative disc disease GERD (gastroesophageal reflux disease) History of breast cancer bilateral HTN (hypertension) Hx of duodenal ulcer Hyperlipidemia Hypothyroidism ILD (interstitial lung disease) Mild cognitive impairment On home oxygen therapy 2lpm via n/c continuous BERNA (obstructive sleep apnea) cpap Osteoarthritis Prediabetes Pulmonary fibrosis Restless legs syndrome hx SCC (squamous cell carcinoma) face Surgical History History of bilateral tubal ligation History of bronchoscopy History of cardiac cath no stents. (~1979) History of colonoscopy History of esophagogastroduodenoscopy (EGD) History of lung surgery thorascopy for lung biopsy S/P mastectomy, bilateral lymph node removal Left arm S/P thyroidectomy partial (r/t nodule) Family History Sister Myocardial infarction Sister Stroke Other No family history of adverse response to anesthesia Social History Smoking Status: Former smoker Tobacco Type: Cigarettes Cigarettes Per Day: 50 pack yr hx; Second Hand Exposure: No; Do You Dip or Chew Tobacco: No; Hx Alcohol Use: No Hx Substance Use: No Preferred Language: Cymraes Communication Ability: Effective Track Vehicle Repairer Required: No Beliefs That Will Affect Care: None marital status: Current Living Situation: Alone Current Living Situation Comment: Senior apartment building How many Children do You have: 2 Feels Safe at Home: Yes Assistive Devices: Oxygen - Continuous and Walker Results & Data ([facility]) Vital Signs (Past 12 Hours) Vital Signs Temp Pulse Pulse Resp BP Pulse Ox O2 Del Method 08/24/22 08:00 Nasal Cannula 08/24/22 07:00 67 08/24/22 08:12 36.9 C 72 14 142/77 H 92 Nasal Cannula 08/24/22 02:49 37.2 C 62 17 151/73 H 95 Nasal Cannula 08/24/22 00:00 Nasal Cannula 08/24/22 00:00 36.7 C 70 18 147/71 H 94 Nasal Cannula 08/23/22 23:16 67 15 157/79 H 93 Nasal Cannula 08/23/22 23:10 68 16 128/101 H 08/23/22 22:47 82 23 197/94 H 96 Oxymask 08/23/22 22:41 84 22 194/99 H 93 Nasal Cannula O2 Flow Rate 08/24/22 08:00 4 08/24/22 07:00 08/24/22 08:12 4 08/24/22 02:49 4 08/24/22 00:00 4 08/24/22 00:00 4 08/23/22 23:16 4 08/23/22 23:10 08/23/22 22:47 4 08/23/22 22:41 4
[2022-08-24 10:07] LABS: ALC (manual) 2.38 K/uL (1.2-3.4); ANC (manual) 2.78 K/uL (1.4-6.5); Basophils # (manual) 0.17 K/uL (0-0.2); Basophils % (manual) 3 %; Eosinophils # (manual) 0.35 K/uL (0-0.50); Eosinophils % (manual) 6 %; Lymphocytes # (manual) 1.22 K/uL (1.2-3.4); Lymphocytes % (manual) 21 %; Monocytes # (manual) 0.12 K/uL (0.11-0.59); Monocytes % (manual) 2 %; Myelocytes # (manual) 0.06 K/uL (0-0); Myelocytes % (manual) 1 %; Neutrophils # (manual) 2.78 K/uL (1.40-6.50); Neutrophils % (manual) 48 %; Reactive Lymphocytes # (manual) 1.16 K/uL; Reactive Lymphocytes % (manual) 20 %
[2022-08-24 10:12] LABS: Albumin Globulin Ratio 1.4 (0.9-2); Albumin Level 3.6 gm/dl (3.4-5.0); BUN Creatinine Ratio 10.3 (10-20); Bilirubin,Total 0.6 mg/dl (0.2-1.0); Calcium 9.2 mg/dl (8.5-10.1); Chol HDL Ratio 7.2 (0-5); Creatinine Clr Calc Pharmacy 80.5 ml/min; Est GFR (African American) 100.6 ml/min; Est GFR (Non-African American) 86.8 ml/min; Globulin 2.5 gm/dl (2.5-4.0); Phosphorus 2.7 mg/dl (2.5-4.9); Potassium 3.8 mmol/L (3.5-5.1); Total Protein 6.1 gm/dl (6.0-8.3)
[2022-08-24 10:19] LABS: Troponin I High Sensitivity 16.8 pg/ml (0-14)
--- NOTE | 2022-08-24 10:24 | Gastroenterology Progress Note ---
Date of Service August 24, 2022 Assessment & Plan (1) Abdominal pain: Plan: Pt is a 71 yo female w ILD, COPD on chronic O2 and on home hospice seen for epigastric, L sided abd pain, associated w 1 episode of loose stools wo GI bleeding. She is reporting to me however that she feels constipated recently. Hx of esophagitis. CT abd/pelvis w contrast wo acute inflammatory/infectious changes. Stools studies negative. She was transferred to medical ICU overnight for suspected strokelike symptoms, having left-sided weakness and hypertension. Neurology following. Abdominal symptoms are improved per her report, not having any much pain, nausea or vomiting. - Diet as tolerated - PPI IV BID - Carafate 1g BID - Bentyl 10mg BID - Defer endoscopic workup at this time given hospice status & suspected stroke - Pls recall GI prn Admission and Anticipated Discharge Date Admission Date: August 22, 2022 Supervising Physician Co-Signing Physician Notes Attending attestation I have seen, examined this patient, and agree with the findings and above by our mid-level provider LINETTE Kennedy, with the following additions: patient with TIA type symptoms overnight Abdominal pain improved GI will sign off, recall with questions Subjective Pt transferred to med ICU overnight for suspected stroke like symptoms (L sided weakness). Brain imaging wo acute infarct/hemorrhage, Neurology following. SBP was >200, DBP >100 better controlled now. This AM AAOx3, still having L sided weakness, no facial droop. She reports abd pain is improved. Passing flatus, no n/v, drank milk for breakfast. 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) Vital Signs (Past 12 Hours) Vital Signs Temp Pulse Pulse Resp BP Pulse Ox O2 Del Method 08/24/22 08:00 Nasal Cannula 08/24/22 07:00 67 08/24/22 08:12 36.9 C 72 14 142/77 H 92 Nasal Cannula 08/24/22 02:49 37.2 C 62 17 151/73 H 95 Nasal Cannula 08/24/22 00:00 Nasal Cannula 08/24/22 00:00 36.7 C 70 18 147/71 H 94 Nasal Cannula 08/23/22 23:16 67 15 157/79 H 93 Nasal Cannula 08/23/22 23:10 68 16 128/101 H 08/23/22 22:47 82 23 197/94 H 96 Oxymask 08/23/22 22:41 84 22 194/99 H 93 Nasal Cannula O2 Flow Rate 08/24/22 08:00 4 08/24/22 07:00 08/24/22 08:12 4 08/24/22 02:49 4 08/24/22 00:00 4 08/24/22 00:00 4 08/23/22 23:16 4 08/23/22 23:10 08/23/22 22:47 4 08/23/22 22:41 4
--- NOTE | 2022-08-24 10:46 | Electrocardiogram Report ---
Test Reason : Blood Pressure : / mmHG Vent. Rate : 095 BPM Atrial Rate : 095 BPM P-R Int : 148 ms QRS Dur : 088 ms QT Int : 352 ms P-R-T Axes : 053 -30 046 degrees QTc Int : 442 ms Normal sinus rhythm Left axis deviation Left ventricular hypertrophy with repolarization abnormality Abnormal ECG Confirmed by Jordin Bnun ([id number]) on 08/24/2022 10:46:48 AM Referred By: Cristina Vizcarra Confirmed By:Ryley Bunn
[2022-08-24 12:11] LABS: Estimated Average Glucose 137 mg/dl; Hemoglobin A1C 6.4 % (4.5-5.6)
[2022-08-24] MEDS: ONDANSETRON INJ 2 MG/ML 2 ML VIAL IV PRN (16:34)
[2022-08-25] MEDS: metroNIDAZOLE 500 MG/100 ML BAG IV SCH ×2 (04:34→13:14)
[2022-08-25] MEDS: MoRPHine SULFATE 2 MG/ML CARP IV PRN ×2 (04:38→23:12)
[2022-08-25] MEDS: LEVOTHYROXINE SODIUM 100 MCG TABLET PO SCH (05:53)
[2022-08-25 07:47] LABS: Calcium 9.2 mg/dl (8.5-10.1); Creatinine Clr Calc Pharmacy 81.9 ml/min; Est GFR (African American) 101.1 ml/min; Est GFR (Non-African American) 87.2 ml/min; Magnesium 1.9 mg/dl (1.7-2.4); Phosphorus 2.4 mg/dl (2.5-4.9); Potassium 3.7 mmol/L (3.5-5.1)
[2022-08-25] MEDS: UMECLIDINIUM/VILANTEROL 62.5/25MCG 7 PUFFS/INHALER INH SCH (07:58)
[2022-08-25] MEDS: DICYCLOMINE HCL 10 MG CAP PO SCH ×2 (07:59→20:13)
[2022-08-25] MEDS: SUCRALFATE 1 GM/10 ML UDC PO SCH ×4 (07:59→20:14)
[2022-08-25] MEDS: ONDANSETRON INJ 2 MG/ML 2 ML VIAL IV PRN (07:59)
[2022-08-25] MEDS: dilTIAZem HCL 180 MG CAPCR PO SCH (07:59)
[2022-08-25] MEDS: ADVANCED PROBIOTIC 1250 MG CAPSULE PO SCH (07:59)
[2022-08-25] MEDS: busPIRone 7.5 MG TAB PO SCH (07:59)
[2022-08-25] MEDS: ASPIRIN 81 MG ECTAB PO SCH (07:59)
[2022-08-25] MEDS: SERTRALINE HCL 100 MG TABLET PO SCH (07:59)
[2022-08-25] MEDS: CIPROFLOXACIN / D5W 400 MG/200 ML BAG IV SCH (08:00)
[2022-08-25] MEDS: PANTOprazole 40 MG in SYRINGE 0 ML IV SCH ×2 (08:00→20:14)
[2022-08-25] MEDS: AZELASTINE HCL 0.1% NASAL 200 SPRAYS/27,400 MCG BTL SCH ×2 (08:00→20:14)
[2022-08-25] MEDS: BENZONATATE 100 MG CAPSULE PO SCH ×3 (08:01→20:13)
[2022-08-25 08:04] LABS: ALC (manual) 2.98 K/uL (1.2-3.4); Basophils # (manual) 0.17 K/uL (0-0.2); Basophils % (manual) 2 %; Eosinophils # (manual) 0.26 K/uL (0-0.50); Eosinophils % (manual) 3 %; Hemoglobin 12.5 g/dl (12.0-16.0); Lymphocytes # (manual) 1.36 K/uL (1.2-3.4); Lymphocytes % (manual) 16 %; Mean Corpuscular Hemoglobin 29.5 pg (25.0-34.0); Mean Corpuscular Hgb Conc 33.8 g/dL (32.0-36.0); Mean Corpuscular Volume 87.3 fL (80.0-100.0); Mean Platelet Volume 10.1 fL (9.4-12.4); Monocytes # (manual) 0.43 K/uL (0.11-0.59); Monocytes % (manual) 5 %; Myelocytes # (manual) 0.09 K/uL (0-0); Myelocytes % (manual) 1 %; Neutrophils % (manual) 54 %; Platelet Count 145 K/uL (130-400); RBC Morphology Unremarkable; RDW Coefficient of Variation 15.8 % (11.5-14.5); RDW Standard Deviation 50.8 fL (36.4-46.3); Reactive Lymphocytes # (manual) 1.62 K/uL; Reactive Lymphocytes % (manual) 19 %; Red Blood Count 4.24 M/uL (4.20-5.40); White Blood Count 8.51 K/ul (4.8-10.8)
--- NOTE | 2022-08-25 08:50 | Hospitalist Progress Note ---
Date of Service August 25, 2022 Assessment & Plan (1) Abdominal pain: (2) Epigastric pain: (3) ILD (interstitial lung disease): (4) Hypothyroidism: (5) Chronic respiratory failure with hypoxia: Plan 71-year-old female with history of COPD, interstitial lung disease/pulmonary fibrosis, chronic respiratory failure with hypoxia, on 3L at baseline, presents with left sided abdominal pain for several days, epigastric discomfort, nausea, chest discomfort and fever. Patient had a loose stool earlier as well. Abd. pain/ epigastric pain, nausea, fever CT abdomen pelvis obtained 1. No acute infectious or inflammatory findings are identified in the abdomen or pelvis. 2. Cardiomegaly and emphysema. 3. Fibrotic change at the lung bases is similar to previous. 4. Hepatomegaly and hepatic steatosis. 5. Mild colonic diverticulosis without CT evidence of acute diverticulitis. 6. Right-sided nephrolithiasis. blood cultx - pending, negat. in 48 hrs UA- negative Resp. biofire negative Stool pcr and c. diff - negative Procal elevated at 0.64 Held azithromycin on admission given initial concern for c. diff hold diuretics for now As c. diff negative PO vanco stopped. Pt continued to have fever and abd. pain - started empiric cipro + flagyl Started PPI IV BID for GERD/esophagitis and added sucralfate GI consulted for further recommendations - in addition to PPI and sucralfate, a dded Bentyl Do not recommend endoscopy, pls see their note for further detail 08/24 abdominal pain much improved, patient is tolerating some diet, and afebrile now 08/25 reports abd. discomfort and nausea, was ab;e to have some food, also reports symptoms of sinusitis - will switch cipro to augmentin -add IV pepcid -remains afebrile Mildly elevated troponin - secondary to above and chronic hypoxic resp. failure - cont. to monitor on tele (pt is also currently active / [facility] hospice) Stroke alert -Patient was stroke alert overnight, had weakness, decreased sensation on the left side at [address] head, CTA head and neck obtained 1. There is no hemorrhage, mass effect, or evidence of acute territorial ischemia by CT criteria. 2. 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 3. Otherwise unremarkable CT angiograms of the head and neck. 4. Emphysema and fibrotic change is noted at the lung apices. TNK not given per [place] [facility] MRI brain obtained 1. No acute intracranial findings. 2. No intracranial mass or pathologic enhancement. Neurology consulted -currently no neurological symptoms, besides vague fingertip paresthesia, not suggestive of stroke, likely peripheral process in nature Chronic conditions Chronic respiratory failure with hypoxia, 3 L at baseline, COPD, interstitial lung disease/pulmonary fibrosis -Continue home medications -Hold azithromycin for now, as above Hypothyroidism -Continue home Synthroid HTN -Continue home medications, except for diuretics -Continue to monitor BP Dispo - patient active w/ [facility] hospice, case management involved Patient confirms DNR/DNI status Admission and Anticipated Discharge Date Admission Date: August 24, 2022 Subjective Patient seen in follow-up of abdominal pain Patient has history of COPD, interstitial lung disease, chronic respiratory failure w/ hypoxia, on 3 L of oxygen, she is also active with hospice [facility] for r marilee. failure I contacted her hospice nurse Adeline, and confirmed Patient having left-sided abdominal pain, epigastric pain, and GI was also consulted CT abdomen in ED unremarkable stool pcr negative Currently patient is sitting up in bed, in no acute distress. Not feeling well, + abd. discomfort and nausea Also reports sinusitis symptoms She has no neurologic deficits, She is able to tolerate some food No fevers chills chest pain increased shortness of breath Review of Systems Review of Systems: All systems reviewed & are unremarkable except as noted in Subjective Physical Exam Physical Exam: hysical Exam: Chronically ill-a ppearing,WD/WN F i n NAD on suppl. O2 Constitutional:J WD/WN, vitals as a aayush Eyes: EOMI, conjunctivae normal, anicteric sclerae ENMT: external ear and n ose normal, oropha rynx normal Neck: supple Respiratory: normal respiratory effort Auscultat ion: + mild rhonch i Cardiovascular:J RRR, no murmur, no edema Chest (Breasts): Chest: normal insp ection of chest Gastrointestinal ( Abdomen): soft, obese, + marci wel sounds, L-side d and epigastr. te nderness on palpat ion (improved) Musculoskeletal: moves extremities Skin: no rashes, warm an d dry Neuro/Psych: awake, alert, answ ering simple quest ions appropriately , no face palsy, n o dysarthria, move s extremities Results & Data Results & Data ([facility]) Vital Signs (Past 12 Hours) Vital Signs Temp Pulse Pulse Pulse Resp BP Pulse Ox 08/25/22 07:43 36.6 C 80 16 139/52 L 97 08/25/22 07:00 66 08/25/22 02:44 36.7 C 77 17 165/86 H 97 08/25/22 00:49 152/77 H 08/24/22 23:02 65 08/24/22 22:44 36.5 C 56 L 18 171/85 H 94 08/24/22 21:59 O2 Del Method O2 Flow Rate 08/25/22 07:43 Nasal Cannula 4 08/25/22 07:00 08/25/22 02:44 Nasal Cannula 4 08/25/22 00:49 08/24/22 23:02 08/24/22 22:44 Nasal Cannula 4 08/24/22 21:59 Nasal Cannula 4 Laboratory Results 08/25/22 08/25/22 08/24/22 Range/Units 06:48 06:48 08:25 WBC 8.51 (4.8-10.8) K/ul RBC 4.24 (4.20-5.40) M/uL Hgb 12.5 (12.0-16.0) g/dl Hct 37.0 (37.0-47.0) % MCV 87.3 (80.0-100.0) fL MCH 29.5 (25.0-34.0) pg MCHC 33.8 (32.0-36.0) g/dL RDW Std Deviation 50.8 H (36.4-46.3) fL RDW Coeff of Karel 15.8 H (11.5-14.5) % Plt Count 145 (130-400) K/uL MPV 10.1 (9.4-12.4) fL Neutrophils % (Manual) 54 % Lymphocytes % (Manual) 16 % Reactive Lymphs % (Man) 19 % Monocytes % (Manual) 5 % Eosinophils % (Manual) 3 % Basophils % (Manual) 2 % Myelocytes % (Man) 1 % Neutrophils # (Manual) 4.60 (1.40-6.50) K/uL Total Absolute Neuts 4.60 (1.4-6.5) K/uL Lymphocytes # (Manual) 1.36 (1.2-3.4) K/uL Reactive Lymphs # 1.62 K/uL Total Abs Lymphocytes 2.98 (1.2-3.4) K/uL Monocytes # (Manual) 0.43 (0.11-0.59) K/uL Eosinophils # (Manual) 0.26 (0-0.50) K/uL Basophils # (Manual) 0.17 (0-0.2) K/uL Myelocytes # (Manual) 0.09 H (0-0) K/uL RBC Morphology Unremarkable Sodium 139 (136-145) mmol/L Potassium 3.7 (3.5-5.1) mmol/L Chloride 105 (98-107) mmol/L Carbon Dioxide 31 (21-32) mmol/L Anion Gap 3 (3-11) BUN 6 (6-23) mg/dl Creatinine 0.67 (0.6-1.2) mg/dl Est Cr Clr Drug Dosing 81.9 ml/min Est GFR ( Amer) 101.1 ml/min Est GFR (Non-Af Amer) 87.2 ml/min BUN/Creatinine Ratio 9.0 L (10-20) Glucose 107 H (70-99(Fasting)) mg/dl Estimat Average Glucose 137 mg/dl Hemoglobin A1c 6.4 H (4.5-5.6) % Calcium 9.2 (8.5-10.1) mg/dl Phosphorus 2.4 L (2.5-4.9) mg/dl Magnesium 1.9 (1.7-2.4) mg/dl Total Bilirubin (0.2-1.0) mg/dl AST (13-39) U/L ALT (7-52) U/L Alkaline Phosphatase (34-104) U/L Troponin I High Sens (0-14) pg/ml Total Protein (6.0-8.3) gm/dl Albumin (3.4-5.0) gm/dl Globulin (2.5-4.0) gm/dl Albumin/Globulin Ratio (0.9-2) Triglycerides (0-150) mg/dl Cholesterol (0-200) mg/dl LDL Cholesterol, Calc mg/dl VLDL Cholesterol, Calc (0-30) mg/dl HDL Cholesterol mg/dl Cholesterol/HDL Ratio (0-5) 08/24/22 08/24/22 Range/Units 08:25 08:25 WBC 5.80 (4.8-10.8) K/ul RBC 4.33 (4.20-5.40) M/uL Hgb 12.7 (12.0-16.0) g/dl Hct 38.3 (37.0-47.0) % MCV 88.5 (80.0-100.0) fL MCH 29.3 (25.0-34.0) pg MCHC 33.2 (32.0-36.0) g/dL RDW Std Deviation 51.3 H (36.4-46.3) fL RDW Coeff of Karel 15.9 H (11.5-14.5) % Plt Count 136 (130-400) K/uL MPV 10.3 (9.4-12.4) fL Neutrophils % (Manual) 48 % Lymphocytes % (Manual) 21 % Reactive Lymphs % (Man) 20 % Monocytes % (Manual) 2 % Eosinophils % (Manual) 6 % Basophils % (Manual) 3 % Myelocytes % (Man) 1 % Neutrophils # (Manual) 2.78 (1.40-6.50) K/uL Total Absolute Neuts 2.78 (1.4-6.5) K/uL Lymphocytes # (Manual) 1.22 (1.2-3.4) K/uL Reactive Lymphs # 1.16 K/uL Total Abs Lymphocytes 2.38 (1.2-3.4) K/uL Monocytes # (Manual) 0.12 (0.11-0.59) K/uL Eosinophils # (Manual) 0.35 (0-0.50) K/uL Basophils # (Manual) 0.17 (0-0.2) K/uL Myelocytes # (Manual) 0.06 H (0-0) K/uL RBC Morphology Sodium 139 (136-145) mmol/L Potassium 3.8 (3.5-5.1) mmol/L Chloride 104 (98-107) mmol/L Carbon Dioxide 32 (21-32) mmol/L Anion Gap 3 (3-11) BUN 7 (6-23) mg/dl Creatinine 0.68 (0.6-1.2) mg/dl Est Cr Clr Drug Dosing 80.5 ml/min Est GFR ( Amer) 100.6 ml/min Est GFR (Non-Af Amer) 86.8 ml/min BUN/Creatinine Ratio 10.3 (10-20) Glucose 107 H (70-99(Fasting)) mg/dl Estimat Average Glucose mg/dl Hemoglobin A1c (4.5-5.6) % Calcium 9.2 (8.5-10.1) mg/dl Phosphorus 2.7 (2.5-4.9) mg/dl Magnesium 2.0 (1.7-2.4) mg/dl Total Bilirubin 0.6 (0.2-1.0) mg/dl AST 27 (13-39) U/L ALT 19 (7-52) U/L Alkaline Phosphatase 53 (34-104) U/L Troponin I High Sens 16.8 H (0-14) pg/ml Total Protein 6.1 (6.0-8.3) gm/dl Albumin 3.6 (3.4-5.0) gm/dl Globulin 2.5 (2.5-4.0) gm/dl Albumin/Globulin Ratio 1.4 (0.9-2) Triglycerides 238 H (0-150) mg/dl Cholesterol 181 (0-200) mg/dl LDL Cholesterol, Calc 108 mg/dl VLDL Cholesterol, Calc 48 H (0-30) mg/dl HDL Cholesterol 25 mg/dl Cholesterol/HDL Ratio 7.2 H (0-5) Medications Administered Current Inpatient Medications Acetaminophen (Acetaminophen 325 Mg Tab) 650 mg PO Q4H PRN PRN Reason: Mild Pain or Fever Stop: 09/21/22 10:27 Last Admin: 08/23/22 02:17 Dose: 650 mg Albuterol (Albut/Ipratrop 3mg/0.5mg Neb 3 Ml Vial) 3 ml INH Q8H PRN; Protocol PRN Reason: shortness of breath or wheezing Stop: 09/21/22 10:41 Albuterol (Albuterol Hfa 8 Gm Inhaler) 2 puffs INH Q4H PRN PRN Reason: Wheezing Stop: 09/21/22 10:41 Aspirin (Aspirin 81 Mg Ectab) 81 mg PO [facility] Stop: 09/22/22 08:59 Last Admin: 08/25/22 07:59 Dose: 81 mg Azelastine HCl (Azelastine Hcl 0.1% Nasal 200 Sprays/27,400 Mcg Btl) 1 sprays NA BID [facility] Stop: 09/21/22 20:59 Last Admin: 08/25/22 08:00 Dose: 1 sprays Benzonatate (Benzonatate 100 Mg Capsule) 100 mg PO TID [facility] Stop: 09/21/22 13:59 Last Admin: 08/25/22 08:01 Dose: 100 mg Buspirone HCl (Buspirone 7.5 Mg Tab) 7.5 mg PO QAM [facility] Stop: 09/22/22 08:59 Last Admin: 08/25/22 07:59 Dose: 7.5 mg Buspirone HCl (Buspirone 15 Mg Tab) 15 mg PO HS [facility] Stop: 09/21/22 20:59 Last Admin: 08/24/22 20:55 Dose: 15 mg Clonidine HCl (Clonidine Hcl 0.1 Mg Tab) 0.1 mg PO BID@0800,2000 PRN PRN Reason: sbp > 150 Stop: 09/21/22 19:59 Last Admin: 08/24/22 19:18 Dose: 0.1 mg Dicyclomine HCl (Dicyclomine Hcl 10 Mg Cap) 10 mg PO BID [facility] Stop: 09/22/22 20:59 Last Admin: 08/25/22 07:59 Dose: 10 mg Diltiazem HCl (Diltiazem Hcl 180 Mg Capcr) 180 mg PO QAM [facility] Stop: 09/22/22 08:59 Last Admin: 08/25/22 07:59 Dose: 180 mg Pantoprazole Sodium 40 mg/ (Syringe) 10 mls @ 5 mls/min IV BID [facility] Stop: 09/21/22 12:59 Last Admin: 08/25/22 08:00 Dose: 5 mls/min Metronidazole (Flagyl) 500 mg in 100 mls @ 100 mls/hr IV Q8H [facility] Stop: 08/25/22 20:29 Last Infusion: 08/25/22 05:53 Dose: Infused Ciprofloxacin (Cipro / D5w) 400 mg in 200 mls @ 100 mls/hr IV Q12H [facility]; Protocol Stop: 08/25/22 20:29 Last Admin: 08/25/22 08:00 Dose: 100 mls/hr Labetalol HCl (Labetalol Hcl Iv 5 Mg/Ml 20ml) 10 mg IV Q4H PRN PRN Reason: Hypertension Stop: 09/23/22 00:02 Lactobacillus Acidophilus (Advanced Probiotic 1250 Mg Capsule) 2 cap PO BID [facility] Stop: 09/21/22 20:59 Last Admin: 08/25/22 07:59 Dose: 2 cap Levothyroxine Sodium (Levothyroxine Sodium 100 Mcg Tablet) 100 mcg PO DAILYBB [facility] Stop: 09/22/22 06:29 Last Admin: 08/25/22 05:53 Dose: 100 mcg Montelukast Sodium (Montelukast Sodium 10 Mg Tablet) 10 mg PO HS [facility] Stop: 09/21/22 20:59 Last Admin: 08/24/22 20:55 Dose: 10 mg Morphine Sulfate (Morphine Sulfate 2 Mg/Ml Carp) 2 mg IV Q3H PRN PRN Reason: Moderate, Severe Pain Stop: 09/06/22 11:43 Last Admin: 08/25/22 04:38 Dose: 2 mg Ondansetron HCl (Ondansetron Inj 2 Mg/Ml 2 Ml Vial) 4 mg IV Q6H PRN PRN Reason: Nausea And Vomiting Stop: 09/22/22 21:14 Last Admin: 08/25/22 07:59 Dose: 4 mg Polyethylene Glycol (Polyethylene (Miralax) 17 Gm Pack) 17 gm PO DAILY PRN PRN Reason: constipation Stop: 09/21/22 10:41 Sertraline HCl (Sertraline Hcl 100 Mg Tablet) 100 mg PO QAM [facility] Stop: 09/22/22 08:59 Last Admin: 08/25/22 07:59 Dose: 100 mg Sucralfate (Sucralfate 1 Gm/10 Ml Udc) 1 gm PO ACHS [facility] Stop: 09/22/22 11:29 Last Admin: 08/25/22 07:59 Dose: 1 gm Umeclidinium/Vilanterol (Umeclidinium/Vilanterol 62.5/25mcg 7 Puffs/Inhaler) 1 puffs INH DAILY [facility] Stop: 09/22/22 08:59 Last Admin: 08/25/22 07:58 Dose: 1 puffs
[2022-08-25] MEDS ORDERED: POTASSIUM CHLORIDE CRTAB 20 MEQ TABCR PO STA (14:24)
[2022-08-25] MEDS: FAMOTIDINE 20 MG in SYRINGE 3 ML IV SCH ×2 (15:46→20:18)
[2022-08-25] MEDS: SENNA 8.6 MG TAB PO SCH (15:46)
[2022-08-25] MEDS: AMOXICILLIN/CLAVULANATE 875 MG TAB PO SCH (15:47)
[2022-08-25] MEDS: MONTELUKAST SODIUM 10 MG TABLET PO SCH (20:13)
[2022-08-25] MEDS: busPIRone 15 MG TAB PO SCH (20:14)
[2022-08-25] MEDS ORDERED: SODIUM CHLORIDE 0.65% NA SOLN 45 ML (OCEAN) PRN (21:09)
[2022-08-25] MEDS ORDERED: SODIUM CHLORIDE 0.65% NA SOLN 45 ML (OCEAN) ONE (21:11)
[2022-08-25] MEDS: ACETAMINOPHEN 325 MG TAB PO PRN (23:17)
[2022-08-25] MEDS: cloNIDine HCL 0.1 MG TAB PO PRN (23:20)
[2022-08-26] MEDS: LEVOTHYROXINE SODIUM 100 MCG TABLET PO SCH (05:49)
[2022-08-26 07:12] LABS: Hematocrit (blood only) 34.1 % (37.0-47.0); Hemoglobin 11.4 g/dl (12.0-16.0); Mean Corpuscular Hemoglobin 29.6 pg (25.0-34.0); Mean Corpuscular Hgb Conc 33.4 g/dL (32.0-36.0); Mean Corpuscular Volume 88.6 fL (80.0-100.0); Mean Platelet Volume 9.5 fL (9.4-12.4); Platelet Count 152 K/uL (130-400); RDW Coefficient of Variation 15.5 % (11.5-14.5); RDW Standard Deviation 50.5 fL (36.4-46.3); Red Blood Count 3.85 M/uL (4.20-5.40); White Blood Count 7.22 K/ul (4.8-10.8)
[2022-08-26 07:37] LABS: Basophils # (auto) 0.04 K/uL (0-0.2); Basophils % (auto) 0.6 %; Eosinophils # (auto) 0.13 K/uL (0-0.50); Eosinophils % (auto) 1.8 %; Immature Granulocytes # (auto) 0.03 K/uL (0.01-0.20); Immature Granulocytes % (auto) 0.4 %; Lymphocytes # (auto) 2.97 K/uL (1.2-3.4); Lymphocytes % (auto) 41.1 %; Monocytes % (auto) 8.3 %; Neutrophils # (auto) 3.45 K/uL (1.40-6.50); Neutrophils % (auto) 47.8 %; RBC Morphology Unremarkable
[2022-08-26 07:38] LABS: BUN Creatinine Ratio 6.9 (10-20); Calcium 9.3 mg/dl (8.5-10.1); Creatinine Clr Calc Pharmacy 76.7 ml/min; Est GFR (African American) 96.3 ml/min; Est GFR (Non-African American) 83.1 ml/min; Phosphorus 2.4 mg/dl (2.5-4.9); Potassium 3.7 mmol/L (3.5-5.1)
[2022-08-26] MEDS: AMOXICILLIN/CLAVULANATE 875 MG TAB PO SCH (07:45)
[2022-08-26] MEDS: SUCRALFATE 1 GM/10 ML UDC PO SCH ×2 (07:45→11:46)
--- NOTE | 2022-08-26 08:23 | Hospitalist Progress Note ---
Date of Service August 26, 2022 Assessment & Plan (1) Abdominal pain: (2) Epigastric pain: (3) ILD (interstitial lung disease): (4) Hypothyroidism: (5) Chronic respiratory failure with hypoxia: Plan 71-year-old female with history of COPD, interstitial lung disease/pulmonary fibrosis, chronic respiratory failure with hypoxia, on 3L at baseline, presents with left sided abdominal pain for several days, epigastric discomfort, nausea, chest discomfort and fever. Patient had a loose stool earlier as well. Abd. pain/ epigastric pain, nausea, fever CT abdomen pelvis obtained 1. No acute infectious or inflammatory findings are identified in the abdomen or pelvis. 2. Cardiomegaly and emphysema. 3. Fibrotic change at the lung bases is similar to previous. 4. Hepatomegaly and hepatic steatosis. 5. Mild colonic diverticulosis without CT evidence of acute diverticulitis. 6. Right-sided nephrolithiasis. blood cultx - pending, negat. in 48 hrs UA- negative Resp. biofire negative Stool pcr and c. diff - negative Procal elevated at 0.64 Held azithromycin on admission given initial concern for c. diff held diuretics initially As c. diff negative PO vanco stopped. Pt continued to have fever and abd. pain - started empiric cipro + flagyl Started PPI IV BID for GERD/esophagitis and added sucralfate GI consulted for further recommendations - in addition to PPI and sucralfate, added Bentyl Do not recommend endoscopy, pls see their note for further detail 08/24 abdominal pain much improved, patient is tolerating some diet, and afebrile now 08/25 reports abd. discomfort and nausea, was able to have some food, also reports symptoms of sinusitis Switched cipro to augmentin -add IV pepcid -remains afebrile 08/26 symptoms improved overall, pt would like to be discharged home (with hospice as previously) Mildly elevated troponin - secondary to above and chronic hypoxic resp. failure - cont. to monitor on tele (pt is also currently active / [facility] hospice) Stroke alert -Patient was stroke alert overnight, had weakness, decreased sensation on the left side at [address] head, CTA head and neck obtained 1. There is no hemorrhage, mass effect, or evidence of acute territorial ischemia by CT criteria. 2. 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 3. Otherwise unremarkable CT angiograms of the head and neck. 4. Emphysema and fibrotic change is noted at the lung apices. TNK not given per [place] [facility] MRI brain obtained 1. No acute intracranial findings. 2. No intracranial mass or pathologic enhancement. Neurology consulted -currently no neurological symptoms, besides vague fingertip paresthesia, not suggestive of stroke, likely peripheral process in nature Chronic conditions Chronic respiratory failure with hypoxia, 3 L at baseline, COPD, interstitial lung disease/pulmonary fibrosis -Continue home medications -Resume azithromycin on discharge Hypothyroidism -Continue home Synthroid HTN -Continue home medications, resume diuretics on discharge -Continue to monitor BP Dispo - patient active w/ [facility] hospice, case management involved Patient confirms DNR/DNI status Admission and Anticipated Discharge Date Admission Date: August 24, 2022 Subjective Patient seen in follow-up of abdominal pain Patient has history of COPD, interstitial lung disease, chronic respiratory failure w/ hypoxia, on 3 L of oxygen, she is also active with hospice [facility] for resp. failure Patient having left-sided abdominal pain, epigastric pain, and GI was also consulted CT abdomen in ED unremarkable stool pcr negative Currently patient is sitting up in bed, in no acute distress. Overall symptoms improved. She has no neurologic deficits She is able to tolerate some food No fevers chills chest pain increased shortness of breath, + sinusitis Review of Systems Review of Systems: All systems reviewed & are unremarkable except as noted in Subjective Physical Exam Physical Exam: hysical Exam: Chronically ill-a ppearing,WD/WN F i n NAD on suppl. O2 Constitutional:J WD/WN, vitals as a aayush Eyes: EOMI, conjunctivae normal, anicteric sclerae ENMT: external ear and n ose normal, oropha rynx normal Neck: supple Respiratory: normal respiratory effort Auscultat ion: + mild rhonch i, + mild wheezing Cardiovascular:J RRR, no murmur, no edema Chest (Breasts): Chest: normal insp ection of chest Gastrointestinal ( Abdomen): soft, obese, + marci wel sounds, L-side d and epigastr. te nderness on palpat ion (much improved ) Musculoskeletal: moves extremities Skin: no rashes, warm an d dry Neuro/Psych: awake, alert, answ ering simple quest ions appropriately , no face palsy, n o dysarthria, move s extremities Results & Data Results & Data ([facility]) Vital Signs (Past 12 Hours) Vital Signs Temp Pulse Pulse Resp BP Pulse Ox O2 Del Method 08/26/22 07:55 55 L 08/26/22 07:55 Nasal Cannula 08/26/22 07:27 36.7 C 61 18 168/82 H 94 Nasal Cannula 08/26/22 03:34 36.6 C 57 L 19 143/90 H 98 Nasal Cannula 08/26/22 01:11 137/76 08/25/22 23:24 73 08/25/22 23:05 37.3 C 80 16 169/89 H 98 Nasal Cannula 08/25/22 20:45 Nasal Cannula O2 Flow Rate 08/26/22 07:55 08/26/22 07:55 4 08/26/22 07:27 3 08/26/22 03:34 4 08/26/22 01:11 08/25/22 23:24 08/25/22 23:05 3.5 08/25/22 20:45 4 Laboratory Results 08/26/22 08/26/22 Range/Units 06:40 06:40 WBC 7.22 (4.8-10.8) K/ul RBC 3.85 L (4.20-5.40) M/uL Hgb 11.4 L (12.0-16.0) g/dl Hct 34.1 L (37.0-47.0) % MCV 88.6 (80.0-100.0) fL MCH 29.6 (25.0-34.0) pg MCHC 33.4 (32.0-36.0) g/dL RDW Std Deviation 50.5 H (36.4-46.3) fL RDW Coeff of Karel 15.5 H (11.5-14.5) % Plt Count 152 (130-400) K/uL MPV 9.5 (9.4-12.4) fL Immature Gran % (Auto) 0.4 % Neut % (Auto) 47.8 % Lymph % (Auto) 41.1 % [place] % (Auto) 8.3 % Eos % (Auto) 1.8 % Baso % (Auto) 0.6 % Neut # (Auto) 3.45 (1.40-6.50) K/uL Lymph # (Auto) 2.97 (1.2-3.4) K/uL [place] # (Auto) 0.60 H (0.11-0.59) K/uL Eos # (Auto) 0.13 (0-0.50) K/uL Baso # (Auto) 0.04 (0-0.2) K/uL Immature Gran # (Auto) 0.03 (0.01-0.20) K/uL RBC Morphology Unremarkable Sodium 140 (136-145) mmol/L Potassium 3.7 (3.5-5.1) mmol/L Chloride 105 (98-107) mmol/L Carbon Dioxide 34 H (21-32) mmol/L Anion Gap 1 L (3-11) BUN 5 L (6-23) mg/dl Creatinine 0.72 (0.6-1.2) mg/dl Est Cr Clr Drug Dosing 76.7 ml/min Est GFR ( Amer) 96.3 ml/min Est GFR (Non-Af Amer) 83.1 ml/min BUN/Creatinine Ratio 6.9 L (10-20) Glucose 109 H (70-99(Fasting)) mg/dl Calcium 9.3 (8.5-10.1) mg/dl Phosphorus 2.4 L (2.5-4.9) mg/dl Magnesium 2.0 (1.7-2.4) mg/dl Medications Administered Current Inpatient Medications Acetaminophen (Acetaminophen 325 Mg Tab) 650 mg PO Q4H PRN PRN Reason: Mild Pain or Fever Stop: 09/21/22 10:27 Last Admin: 08/25/22 23:17 Dose: 650 mg Albuterol (Albut/Ipratrop 3mg/0.5mg Neb 3 Ml Vial) 3 ml INH Q8H PRN; Protocol PRN Reason: shortness of breath or wheezing Stop: 09/21/22 10:41 Albuterol (Albuterol Hfa 8 Gm Inhaler) 2 puffs INH Q4H PRN PRN Reason: Wheezing Stop: 09/21/22 10:41 Amoxicillin/Clavulanate Potassium (Amoxicillin/Clavulanate 875 Mg Tab) 1 tab PO BIDM [facility] Stop: 08/27/22 16:59 Last Admin: 08/26/22 07:45 Dose: 1 tab Aspirin (Aspirin 81 Mg Ectab) 81 mg PO QAM [facility] Stop: 09/22/22 08:59 Last Admin: 08/25/22 07:59 Dose: 81 mg Azelastine HCl (Azelastine Hcl 0.1% Nasal 200 Sprays/27,400 Mcg Btl) 1 sprays NA BID [facility] Stop: 09/21/22 20:59 Last Admin: 08/25/22 20:14 Dose: 1 sprays Benzonatate (Benzonatate 100 Mg Capsule) 100 mg PO TID [facility] Stop: 09/21/22 13:59 Last Admin: 08/25/22 20:13 Dose: 100 mg Buspirone HCl (Buspirone 7.5 Mg Tab) 7.5 mg PO QAM [facility] Stop: 09/22/22 08:59 Last Admin: 08/25/22 07:59 Dose: 7.5 mg Buspirone HCl (Buspirone 15 Mg Tab) 15 mg PO HS [facility] Stop: 09/21/22 20:59 Last Admin: 08/25/22 20:14 Dose: 15 mg Clonidine HCl (Clonidine Hcl 0.1 Mg Tab) 0.1 mg PO BID@0800,2000 PRN PRN Reason: sbp > 150 Stop: 09/21/22 19:59 Last Admin: 08/25/22 23:20 Dose: 0.1 mg Dicyclomine HCl (Dicyclomine Hcl 10 Mg Cap) 10 mg PO BID [facility] Stop: 09/22/22 20:59 Last Admin: 08/25/22 20:13 Dose: 10 mg Diltiazem HCl (Diltiazem Hcl 180 Mg Capcr) 180 mg PO QAM [facility] Stop: 09/22/22 08:59 Last Admin: 08/25/22 07:59 Dose: 180 mg Pantoprazole Sodium 40 mg/ (Syringe) 10 mls @ 5 mls/min IV BID [facility] Stop: 09/21/22 12:59 Last Admin: 08/25/22 20:14 Dose: 5 mls/min Famotidine 20 mg/ Syringe 5 mls @ 2.5 mls/min IV Q12 [facility] Stop: 09/24/22 13:59 Last Admin: 08/25/22 20:18 Dose: 2.5 mls/min Labetalol HCl (Labetalol Hcl Iv 5 Mg/Ml 20ml) 10 mg IV Q4H PRN PRN Reason: Hypertension Stop: 09/23/22 00:02 Lactobacillus Acidophilus (Advanced Probiotic 1250 Mg Capsule) 2 cap PO BID [facility] Stop: 09/21/22 20:59 Last Admin: 08/25/22 07:59 Dose: 2 cap Levothyroxine Sodium (Levothyroxine Sodium 100 Mcg Tablet) 100 mcg PO DAILYBB [facility] Stop: 09/22/22 06:29 Last Admin: 08/26/22 05:49 Dose: 100 mcg Losartan Potassium (Losartan Potassium 50 Mg Tab) 50 mg PO QAM [facility] Stop: 09/25/22 08:59 Montelukast Sodium (Montelukast Sodium 10 Mg Tablet) 10 mg PO HS [facility] Stop: 09/21/22 20:59 Last Admin: 08/25/22 20:13 Dose: 10 mg Morphine Sulfate (Morphine Sulfate 2 Mg/Ml [place]) 2 mg IV Q3H PRN PRN Reason: Moderate, Severe Pain Stop: 09/06/22 11:43 Last Admin: 08/25/22 23:12 Dose: 2 mg Ondansetron HCl (Ondansetron Inj 2 Mg/Ml 2 Ml Vial) 4 mg IV Q6H PRN PRN Reason: Nausea And Vomiting Stop: 09/22/22 21:14 Last Admin: 08/25/22 07:59 Dose: 4 mg Polyethylene Glycol (Polyethylene (Miralax) 17 Gm Pack) 17 gm PO DAILY PRN PRN Reason: constipation Stop: 09/21/22 10:41 Sennosides (Senna 8.6 Mg Tab) [facility] Stop: 09/24/22 14:14 Last Admin: 08/25/22 15:46 Dose: 8.6 mg Sertraline HCl (Sertraline Hcl 100 Mg Tablet) 100 mg PO QAM [facility] Stop: 09/22/22 08:59 Last Admin: 08/25/22 07:59 Dose: 100 mg Sodium Chloride (Sodium Chloride 0.65% Na Soln 45 Ml (Artesian)) 2 sprays NA TID PRN PRN Reason: Nasal dryness Stop: 09/24/22 21:08 Last Admin: 08/25/22 23:18 Dose: 2 sprays Sucralfate (Sucralfate 1 Gm/10 Ml Udc) 1 gm PO ACHS [facility] Stop: 09/22/22 11:29 Last Admin: 08/26/22 07:45 Dose: 1 gm Umeclidinium/Vilanterol (Umeclidinium/Vilanterol 62.5/25mcg 7 Puffs/Inhaler) 1 puffs INH DAILY [facility] Stop: 09/22/22 08:59 Last Admin: 08/25/22 07:58 Dose: 1 puffs
[2022-08-26] MEDS ORDERED: LOSARTAN POTASSIUM 50 MG TAB PO SCH (09:00)
[2022-08-26] MEDS: dilTIAZem HCL 180 MG CAPCR PO SCH (09:45)
[2022-08-26] MEDS: busPIRone 7.5 MG TAB PO SCH (09:46)
[2022-08-26] MEDS: ASPIRIN 81 MG ECTAB PO SCH (09:46)
[2022-08-26] MEDS: SERTRALINE HCL 100 MG TABLET PO SCH (09:46)
[2022-08-26] MEDS: PANTOprazole 40 MG in SYRINGE 0 ML IV SCH (09:47)
[2022-08-26] MEDS: SENNA 8.6 MG TAB PO SCH (09:47)
[2022-08-26] MEDS: AZELASTINE HCL 0.1% NASAL 200 SPRAYS/27,400 MCG BTL SCH (09:48)
[2022-08-26] MEDS: UMECLIDINIUM/VILANTEROL 62.5/25MCG 7 PUFFS/INHALER INH SCH (09:49)
[2022-08-26] MEDS: FAMOTIDINE 20 MG in SYRINGE 3 ML IV SCH (09:58)
[2022-08-26] MEDS: BENZONATATE 100 MG CAPSULE PO SCH (09:58)
[2022-08-26] MEDS: DICYCLOMINE HCL 10 MG CAP PO SCH (11:11)
[2022-08-26] MEDS: ACETAMINOPHEN 325 MG TAB PO PRN (11:15)
--- NOTE | 2022-08-26 13:36 | Discharge Summary ---
Date of Service August 26, 2022 Admission HPI Per Admitting Provider 71 yo female, with history of COPD, interstitial lung disease/pulmonary fibrosis, chronic respiratory failure with hypoxia, on 3L at baseline, presents with left sided abdominal pain for several days, epigastric discomfort, nausea, chest discomfort and fever. Patient had a loose stool earlier as well. CT abdomen pelvis obtained, chest x-ray obtained, however unremarkable. Blood cultures obtained given fever. Respiratory bio fire obtained and negative. Lactate negative. Mildly elevated troponin noted in ED in 20s. She received GI cocktail, morphine, IV Tylenol and some fluid in the ED. Patient tells me that she is always somewhat short of breath, due to her interstitial disease. She tells me she has been desaturating quite a bit with ambulation, even more than usual. Then she also developed left-sided abdominal pain several days ago, and epigastric discomfort, which she reports to have on and off for a long time. She also reports some chest discomfort/pain on and off, which also has been ongoing for a long time now. Currently denies any chest pain. Abdominal pain improved after medications received in the ED. When I questioned her if she mentioned her symptoms to anyone , such as pcp she told me that she said this to her hospice nurse. (At this moment trying to confirm the information about the hospice from the ED provider/brand strategy manager/floor manager case management). Patient tells me that she cannot confirm all her medications, however says that she has been on azithromycin Tuesday. She is not aware of any history of C. difficile. Discussed that we will check stool studies and will check also for C. difficile. Pro-Syed also ordered. Admission Exam Per Admitting Provider Physical Exam: Chronically ill-appearing,WD/WN F in NAD on suppl. O2 Constitutional: WD/WN, vitals as above Eyes: PERRL, conjunctivae normal, anicteric sclerae ENMT: external ear and nose normal, oropharynx normal Neck: trachea midline, no thyromegaly Respiratory: normal respiratory effort Auscultation: + rhonchi Cardiovascular: RRR, no murmur, no edema Chest (Breasts): Chest: normal inspection of chest Gastrointestinal (Abdomen): soft, obese, + bowel sounds, L-sided and epigastr. tenderness on palpation Musculoskeletal: no cyanosis or clubbing, extremities motor strength 5/5 Skin: no rashes, warm and dry Neurologic: PERRL, EOMI, accommodation nl, no face palsy, no dysarthria Psychiatric: A+Ox3, euthymic affect Principal Diagnosis Abdominal pain, likely secondary to known esophagitis, possible PUD Discharge Exam hysical Exam: Chronically ill-appearing,WD/WN F in NAD on suppl. O2 Constitutional: WD/WN, vitals as above Eyes: EOMI, conjunctivae normal, anicteric sclerae ENMT: external ear and nose normal, oropharynx normal Neck: supple Respiratory: normal respiratory effort Auscultation: + mild rhonchi, + mild wheezing Cardiovascular: RRR, no murmur, no edema Chest (Breasts): Chest: normal inspection of chest Gastrointestinal (Abdomen): soft, obese, + bowel sounds, L-sided and epigastr. tenderness on palpation (much improved) Musculoskeletal: moves extremities Skin: no rashes, warm and dry Neuro/Psych: awake, alert, answering simple questions appropriately, no face palsy, no dysarthria, moves extremities Discharge Data Allergies Allergy/AdvReac Type Severity Reaction Status Date / Time baclofen Allergy Severe Unknown Verified 08/22/22 07:33 cefuroxime Allergy Severe Hives and Verified 08/22/22 07:33 Dizziness hydralazine Allergy Intermediate joint pain Verified 08/22/22 07:33 tetracycline Allergy Mild RASH Verified 08/22/22 07:33 budesonide AdvReac Severe caused her Verified 08/22/22 07:33 to cough constantly amlodipine AdvReac Mild Edema. Verified 08/22/22 07:33 Consultations 08/22/22 07:37 ED Decision to Admit Stat 08/23/22 11:46 Consult Gastroenterology Routine 08/24/22 08:00 Consult Neurology Routine Ordered Studies 08/22/22 05:19 CT Abd and Pelvis [CT abd pelvis IV con only] Stat FINDINGS: Lung bases: The heart is enlarged and without pericardial effusion. Emphysema and fibrotic changes seen at the lung bases. Postsurgical change is suggested on the right. No airspace consolidation or pleural effusion is identified. There is a small hiatal hernia. Liver: The contrast-enhanced liver is enlarged, measuring 19.3 cm in length. The liver demonstrates diffusely diminished attenuation indicating steatosis. There is no intrahepatic biliary ductal dilatation. The hepatic veins and portal veins are patent. Gallbladder: Unremarkable. Spleen: Normal in size and attenuation. Pancreas: There is moderate fatty atrophy of the pancreas. No acute abnormality is seen. Adrenal glands: Unremarkable. Kidneys: The contrast enhanced kidneys demonstrate mild cortical atrophy and are without hydronephrosis. The kidneys enhance symmetrically. A 3 mm nonobstructing calculus is seen in the left lower pole. Scattered subcentimeter cortical hypodensities likely represent cysts but are too small for definitive characterization. Abdominal vasculature: The abdominal aorta is normal in course and caliber noting advanced atherosclerotic calcification. Bowel: There is mild colonic diverticulosis without CT evidence of acute diverticulitis. No bowel obstruction is seen. The appendix is well-visualized and normal. Peritoneum: There is no intraperitoneal free air or abdominal ascites. There is a fat-containing umbilical hernia. There is laxity of the ventral abdominal wall with diastases of the rectus musculature. Lymphadenopathy: None. Pelvic viscera: The bladder is mildly distended but otherwise normal in appearance. The uterus and adnexa are normal as visualized. There are bilateral fat-containing groin hernias. Skeletal structures: The skeletal structures are osteopenic. There is mild lumbosacral spondylosis. No lytic or blastic lesions are seen. IMPRESSION: 1. No acute infectious or inflammatory findings are identified in the abdomen or pelvis. 2. Cardiomegaly and emphysema. 3. Fibrotic change at the lung bases is similar to previous. 4. Hepatomegaly and hepatic steatosis. 5. Mild colonic diverticulosis without CT evidence of acute diverticulitis. 6. Right-sided nephrolithiasis. 7. Additional findings as above. 08/23/22 22:10 CT head/brain wo con Urgent CTA head w con [CT angio head w con] Urgent CTA neck with con [CT angio neck with con] Urgent IMPRESSION: 1. There is no hemorrhage, mass effect, or evidence of acute territorial ischemia by CT criteria. 2. 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 3. Otherwise unremarkable CT angiograms of the head and neck. 4. Emphysema and fibrotic change is noted at the lung apices. 08/24/22 00:03 MR brain wo/w con Urgent FINDINGS: There are no foci of restricted diffusion to suggest acute infarct. No acute intracranial hemorrhage, midline shift or mass effect is present. Ventricular system is unremarkable. Basal cisterns are patent. There are no extra-axial collections. Flow-voids for the major intracranial vessels are present. No intracranial mass or pathologic enhancement is present. Post contrast images are mildly compromised by motion artifact. Multiple small white matter T2 hyperintense foci favor small vessel disease. Calvarial signal is normal. There is no evidence for sinusitis. IMPRESSION: 1. No acute intracranial findings. 2. No intracranial mass or pathologic enhancement. Hospital Course (1) Abdominal pain: (2) Epigastric pain: (3) ILD (interstitial lung disease): (4) Hypothyroidism: (5) Chronic respiratory failure with hypoxia: Plan 71-year-old female with history of COPD, interstitial lung disease/pulmonary fibrosis, chronic respiratory failure with hypoxia, on 3L at baseline, presents with left sided abdominal pain for several days, epigastric discomfort, nausea, chest discomfort and fever. Patient had a loose stool earlier as well. Abd. pain/ epigastric pain, nausea, fever CT abdomen pelvis obtained 1. No acute infectious or inflammatory findings are identified in the abdomen or pelvis. 2. Cardiomegaly and emphysema. 3. Fibrotic change at the lung bases is similar to previous. 4. Hepatomegaly and hepatic steatosis. 5. Mild colonic diverticulosis without CT evidence of acute diverticulitis. 6. Right-sided nephrolithiasis. blood cultx - pending, negat. in 48 hrs UA- negative Resp. biofire negative Stool pcr and c. diff - negative Procal elevated at 0.64 Held azithromycin on admission given initial concern for c. diff held diuretics initially As c. diff negative PO vanco stopped. Pt continued to have fever and abd. pain - started empiric cipro + flagyl Started PPI IV BID for GERD/esophagitis and added sucralfate GI consulted for further recommendations - in addition to PPI and sucralfate, added Bentyl Do not recommend endoscopy, pls see their note for further detail 08/24 abdominal pain much improved, patient is tolerating some diet, and afebrile now 08/25 reports abd. discomfort and nausea, was able to have some food, also reports symptoms of sinusitis Switched cipro to augmentin -add IV pepcid -remains afebrile 08/26 symptoms improved overall, pt would like to be discharged home (with hospice as previously) Mildly elevated troponin - secondary to above and chronic hypoxic resp. failure - cont. to monitor on tele (pt is also currently active [facility] hospice) Stroke alert -Patient was stroke alert overnight, had weakness, decreased sensation on the left side at [address] head, CTA head and neck obtained 1. There is no hemorrhage, mass effect, or evidence of acute territorial ischemia by CT criteria. 2. 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 3. Otherwise unremarkable CT angiograms of the head and neck. 4. Emphysema and fibrotic change is noted at the lung apices. TNK not given per [place] [facility] MRI brain obtained 1. No acute intracranial findings. 2. No intracranial mass or pathologic enhancement. Neurology consulted - currently no neurological symptoms, besides vague fingertip paresthesia, not suggestive of stroke, likely peripheral process in nature Chronic conditions Chronic respiratory failure with hypoxia, 3 L at baseline, COPD, interstitial lung disease/pulmonary fibrosis -Continue home medications -Resume azithromycin on discharge Hypothyroidism -Continue home Synthroid HTN -Continue home medications, resume diuretics on discharge -Continue to monitor BP Dispo - patient active [facility] hospice, case management involved Patient confirms DNR/DNI status Total Time Total Time Spent Total Time Spent (In Minutes): 40 Discharge Plan Discharge Items Patient Disposition: Hospice - Home Reason For Visit: ABD PAIN, CHEST PAIN Discharge Diagnosis: Abdominal pain, likely secondary to known esophagitis, possible PUD Activity: Per Instructions section Non-emergency contact: Primary Care Provider Call non-emergency contact if: you have any medication questions and your symptoms worsen Follow-up/Referrals: Cristina Vizcarra MD [Primary Care Provider] - Diet: Regular and Other - See Diet Comment Diet Comment: Recommend to avoid any acidic juices, caffeine, or spicy foods Addtl Attending Provider Instructions: Finish antibiotic treatment with Augmentin, as prescribed. As discussed with gastroenterology, take pantoprazole twice a day instead of once a day. Take Bentyl as prescribed - twice a day. Take sucralfate 4 times a day, before meals. Avoid spicy or acidic foods, also try to avoid caffeine. Pending Studies at Discharge: Yes Studies:: Blood cultx - final results pending Stand-Alone Forms: My [facility] Medications and DC Order Prescriptions: New amoxicillin-pot clavulanate 875-125 mg Tablet 1 tab PO BIDM 7 Days Qty: 14 0RF dicyclomine 10 mg Capsule 10 mg PO BID 30 Days Qty: 60 0RF sucralfate 100 mg/mL Suspension 1 g PO ACHS 30 Days Qty: 414 0RF Continued (DME) CPAP Machine Misc See Rx Instructions .ROUTE .MEDSUPPLY Qty: 1 0RF Rx Instructions: Auto CPAP 5-12 H20, tubing, supplies heated humification. Modem w/ AHI and compliance. ELO: 99yr sertraline [Zoloft] 100 mg tablet 100 mg PO QAM Qty: 30 3RF (DME) Portable Oxygen Misc See Rx Instructions .MEDSUPPLY Qty: 1 0RF Rx Instructions: Oxygen 2 liters continuous with portable concentrator. STEPHANI 99 aspirin [Lo-Dose Aspirin] 81 mg tablet,delayed release (DR/EC) 81 mg PO QAM Qty: 30 Rx Instructions: Take with food clonidine HCl 0.1 mg tablet 0.1 mg PO BID@0800,2000 PRN (Reason: HTN) albuterol sulfate [Ventolin HFA] 90 mcg/actuation HFA aerosol inhaler 2 puff INH Q4H PRN (Reason: Wheezing) Qty: 18 3RF ipratropium-albuterol 0.5 mg-3 mg(2.5 mg base)/3 mL solution for nebulization 3 ml INH Q8H PRN (Reason: shortness of breath or wheezing) Qty: 270 3RF Anoro Ellipta 62.5-25 mcg/actuation blister with device 1 inh inhalation DAILY Qty: 60 3RF diltiazem HCl [Cartia XT] 180 mg Capsule,Extended Release 24hr 180 mg PO QAM montelukast 10 mg tablet 10 mg PO HS furosemide [Lasix] 20 mg tablet 20 mg PO DAILY levothyroxine 100 mcg Tablet 100 mcg PO QAM loratadine [Claritin] 10 mg Tablet 10 mg PO QAM buspirone 15 mg tablet 15 mg PO HS losartan [Cozaar] 100 mg tablet 100 mg PO QAM donepezil [Aricept] 5 mg tablet 5 mg PO QAM Rx Instructions: Take 1 tab by mouth daily. Take with largest meal of the day. azithromycin [Zithromax] 250 mg Tablet 250 mg PO MOWEFR Rx Instructions: start on day 2 of therapy buspirone 15 mg tablet 7.5 mg PO QAM gabapentin 100 mg capsule 100 mg PO HS polyethylene glycol 3350 [Miralax] 17 gram Powder In Packet 17 g PO DAILY PRN (Reason: constipation) Qty: 30 0RF azelastine 137 mcg (0.1 %) Aerosol,Noti 1 spray INTRANASAL BID docusate sodium 100 mg capsule 100 mg PO BID benzonatate [Tessalon Perles] 100 mg Capsule 100 mg PO TID Qty: 30 0RF Lactinex 1 million cell tablet,chewable 1 tab PO BID Qty: 30 0RF Changed pantoprazole [Protonix] 40 mg tablet,delayed release (DR/EC) 40 mg PO BID 30 Days Qty: 60 0RF Discharge Orders: Discharge Order (Routine); Ordered 08/26/22 Ordered By: Martin Botello/Other Patient Handouts: Prediabetes Admission Data Admit Date/Time: 08/24/22 17:10 Attending Provider: Martin Abbasi Admit Provider: Martin Abbasi Primary Care Provider: Cristina Vizcarra Other Providers: [facility],Home [facility] ; Sirena Gordon ; Alfosno Up ; William Zapien ; Nolberto Rosas ; Karissa Abreu ; Jaquelin Garcia ; Jenni Bhatia ; Jose Vo Kathleen ; Sid Perez ; Ines Camargo ; Marcell Miranda ; Destiney Florence ; Mirna Patrick ; Jose Viramontes ; Herbert Alexander Other Interventions: Discharge Summary Assessment (RN) Last Done: 08/26/22 13:29
--- NOTE | 2022-08-28 17:09 | Communication Note ---
Date of Service: August 28, 2022 Received a tiger text @ 4:39 regarding pt's positive BCx -1 bottle is growing Gram Positive bacilli Plan: -pt received IV cipro and flagyl while in the hospital (4 days) and discharged on augmentin for 7 days -spoke to the pt: denied any fever, vomiting or worsening abd pain - eating better - Advised the pt to continue augmentin and if symptoms reoccur or worsen then come to the ER - will wait for the final BCx result - Pt is currently on Hospice (did assess the mental status over the phone: [id number])
== END 2022-08-26 14:25 | disposition hospice, home (50) | DRG 392 ==
LOC: ED 05:06 → 2N 05:06 → 2E 08-24 00:20

== ENCOUNTER 2023-02-13 09:31 | Inpatient (IN) ==
[2023-02-13] MEDS ORDERED: ALBUTEROL 0.083% NEBU SOLN 3 ML VIAL NEB STA (09:45)
[2023-02-13] MEDS ORDERED: methylPREDNISolone 125 MG/2 ML VIAL IV STA (09:46)
--- NOTE | 2023-02-13 09:49 | Emergency Department Note ---
Impression & Plan Hypoxia, COPD exacerbation, Respiratory failure, Pneumonia ED Provider Note NAME: GEMMA RODRÍGUEZ AGE: 72 SEX: F : 1950 ARRIVES VIA: Ambulance INFORMANT: Patient ED PROVIDER(S): Polo Calhoun DO CHIEF COMPLAINT: shortness of breath HPI: Patient is a 72-year-old female who presents to the ER with past medical history of chronic respiratory failure on 4 L nasal cannula, shortness of breath, hypertension, hyperlipidemia, pulmonary fibrosis, asthma who presents to the ER as her power went out. She notes that she was unable to use her oxygen. She became confused and consequently was brought in. She notes that she is on hospice. She also notes that she is having back pain in the thoracic region. Her hospice team was concerned that she may also have a kidney stone. She denies any dysuria, urgency, or frequency. No other exacerbating or remitting factors. No chest pain. No other complaints at this time. PAST MEDICAL HISTORY:See Below PAST SURGICAL HISTORY:See Below FAMILY HISTORY:See Below SOCIAL HISTORY:See Below HOME MEDICATIONS:See Below ALLERGIES:See Below VITALS:See Below PHYSICAL EXAMINATION: GENERAL: Sitting up in bed, alert, slightly confused on nasal cannula EYE EXAM: normal conjunctiva. PERRL and EOM's grossly intact. OROPHARYNX: no exudate, no erythema, lips, buccal mucosa, and tongue normal and mucous membranes are moist NECK: supple, no nuchal rigidity, no adenopathy, non-tender LUNGS: Clear to auscultation. Normal chest wall mechanics HEART: no murmurs, S1 normal and S2 normal ABDOMEN: abdomen soft, non-tender, normo-active bowel sounds, no masses, no andressa ound or guarding. BACK: Back is symmetrical on inspection and there is no deformity, no midline tenderness, no CVA tenderness. SKIN: no rashes and no bruising UPPER EXTREMITIES: upper extremities are grossly normal. LOWER EXTREMITIES: No pitting edema. NEURO EXAM: Normal sensorium, cranial nerves II-XII grossly intact, normal speech, no gross weakness of arms, no gross weakness of legs. MEDICAL DECISION MAKING: Patient is a 72-year-old female who presents ER brought in by EMS for shortness of breath. Department present the patient at bedside she was found to be hypoxic with a pulse ox 40%. She was initially placed on nonrebreather then switched to nasal cannula as her oxygenation improved. She remained on 6 L nasal cannula throughout her stay. Labs show a leukocytosis of 14,000. No significant anemia. VBG with a pH of 7.35 and a CO2 of 54. BMP with mild hypokalemia at 3. LFTs bilirubin was unremarkable. Troponin was slightly elevated at 26. Lipase was normal. CTs of the chest abdomen pelvis does show pneumonia. Patient was given IV Levaquin. She was given an hour-long neb treatment. Updated bedside today. Given steroids. Discussed the hospitalist admitted for further work-up of respiratory failure likely secondary to pneumonia. Triage Nursing notes reviewed. Limited review of prior medical records performed Vital Signs: reviewed and remarkable for hypoxic Differential diagnosis: Differential diagnoses includes but is not limited to pneumonia, bronchitis, COPD/Asthma exacerbation, pneumothorax, pulmonary embolism, congestive heart failure, acute coronary syndrome ER treatment provided: See below Diagnostics interpreted by me include EKG and cardiac monitoring as listed below: -Cardiac Monitoring: An order was placed for continuous cardiac monitoring. The monitor shows a rate of 70 with sinus rhythm. -ECG: Sinus rhythm rate 69 Right axis No PVCs QTc 420 -Laboratory studies:Interpreted by me as stated above in MDM and shown below. Imaging studies: Xrays: As interpreted by me: Portable AP upright 1 view of the chest shows right lower lobe infiltrate which is slightly worsened than previous CTs show: CT of the chest thoracic spine and abdomen pelvis suggest pneumonia Consultation(s): As described in MDM Procedures:none Critical Care: I have personally spent 32 minutes of critical care time in the direct management of this patient. This includes bedside care, interpretation of diagnostic studies, and testing, discussion with consultants, patient, and family members, and other required patient management activities. This 32 minutes is in excess of all separately billable procedures. Past Med/Surg History Medical History (Updated 02/13/23 @ 15:06 by Polo Calhoun DO) Anxiety and depression Axillary lymphadenopathy Chronic back pain Chronic respiratory failure with hypoxia CKD (chronic kidney disease), stage III stage 3. follows with pcp. COPD (chronic obstructive pulmonary disease) Degenerative disc disease GERD (gastroesophageal reflux disease) History of breast cancer bilateral HTN (hypertension) Hx of duodenal ulcer Hyperlipidemia Hypothyroidism ILD (interstitial lung disease) Mild cognitive impairment On home oxygen therapy 2lpm via n/c continuous BERNA (obstructive sleep apnea) cpap Osteoarthritis Prediabetes Pulmonary fibrosis Restless legs syndrome hx SCC (squamous cell carcinoma) face Surgical History History of bilateral tubal ligation History of bronchoscopy History of cardiac cath no stents. (~1979) History of colonoscopy History of esophagogastroduodenoscopy (EGD) History of lung surgery thorascopy for lung biopsy S/P mastectomy, bilateral lymph node removal Left arm S/P thyroidectomy partial (r/t nodule) Family History Sister Myocardial infarction Sister Stroke Other No family history of adverse response to anesthesia Social History Smoking Status: Former smoker Tobacco Type: Cigarettes Cigarettes Per Day: 50 pack yr hx; Second Hand Exposure: No; Do You Dip or Chew Tobacco: No; Hx Alcohol Use: No Hx Substance Use: No Preferred Language: [place] Communication Ability: Effective Kick Press Setter Required: No Beliefs That Will Affect Care: None marital status: Current Living Situation: Alone Current Living Situation Comment: Senior apartment building How many Children do You have: 2 Feels Safe at Home: Yes Assistive Devices: Oxygen - Continuous and Walker Allergies Allergies Allergy/AdvReac Type Severity Reaction Status Date / Time baclofen Allergy Severe Unknown Verified 08/22/22 07:33 cefuroxime Allergy Severe Hives and Verified 08/22/22 07:33 Dizziness hydralazine Allergy Intermediate joint pain Verified 08/22/22 07:33 tetracycline Allergy Mild RASH Verified 08/22/22 07:33 budesonide AdvReac Severe caused her Verified 08/22/22 07:33 to cough constantly amlodipine AdvReac Mild Edema. Verified 08/22/22 07:33 Home Meds Home Medications Medication Instructions Recorded Confirmed aspirin 81 mg tablet,delayed 81 mg PO QAM #30 tabs 03/09/19 02/13/23 release (Lo-Dose Aspirin) buspirone 15 mg tablet 15 mg PO HS Anxiety 07/29/19 02/13/23 loratadine 10 mg tablet (Claritin) 10 mg PO QAM 07/29/19 02/13/23 losartan 100 mg tablet (Cozaar) 100 mg PO QAM 07/29/19 02/13/23 diltiazem HCl 180 mg 180 mg PO QAM 08/12/19 02/13/23 capsule,extended release 24 hr (Cartia XT) montelukast 10 mg tablet 10 mg PO HS 12/06/19 02/13/23 furosemide 20 mg tablet (Lasix) 20 mg PO DAILY 12/07/19 02/13/23 levothyroxine 100 mcg tablet 100 mcg PO QAM 01/23/20 02/13/23 clonidine HCl 0.1 mg tablet 0.1 mg PO BID@0800,2000 PRN HTN 05/13/20 02/13/23 buspirone 15 mg tablet 7.5 mg PO BID 01/16/21 02/13/23 gabapentin 100 mg capsule 100 mg PO HS 01/16/21 02/13/23 donepezil 5 mg tablet (Aricept) 5 mg PO QAM 01/20/21 02/13/23 azelastine 137 mcg (0.1 %) nasal 1 spray intranasal BID 04/16/21 02/13/23 spray aerosol docusate sodium 100 mg capsule 100 mg PO BID 04/16/21 02/13/23 azithromycin 250 mg tablet 250 mg PO MOWEFR 08/22/22 02/13/23 (Zithromax) benzonatate 100 mg capsule 100 mg PO TID PRN Cough 02/13/23 02/13/23 Previous Rx's Medication Instructions Recorded CPAP Machine #1 ea 08/06/19 sertraline 100 mg tablet (Zoloft) 100 mg PO QAM #30 tabs 10/15/19 Portable Oxygen #1 ea 04/04/20 polyethylene glycol 3350 17 gram 17 g PO DAILY PRN constipation #30 01/19/21 oral powder packet (Miralax) ea albuterol sulfate 90 mcg/actuation 2 puff inhalation Q4H PRN Wheezing 03/17/21 aerosol inhaler (Ventolin HFA) #18 grams ipratropium 0.5 mg-albuterol 3 mg 3 ml inhalation Q8H PRN shortness 03/17/21 (2.5 mg base)/3 mL nebulization of breath or wheezing #270 mL soln umeclidinium 62.5 mcg-vilanterol 1 inh inhalation DAILY #60 ea 03/17/21 25 mcg/actuation powdr for inhalation (Anoro Ellipta) Lactobacillus acidoph-L.bulgaricus 1 tab PO BID #30 tabs 04/19/21 1 million cell chewable tablet (Lactinex) pantoprazole 40 mg tablet,delayed 40 mg PO BID 30 days #60 tabs 08/26/22 release (Protonix) Results & Data (ED) Vital Signs Vital Signs - 24 hr 02/13/23 09:40 02/13/23 09:40 02/13/23 09:40 Temperature 37.2 C Temperature Source Oral Pulse Rate 78 Pulse Rate [Apical] Pulse Rhythm [Apical] Pulse Strength [Apical] Respiratory Rate 24 Respiratory Effort / Characteristics Spontaneous Short of Breath Spontaneous Labored Short of Breath Respiratory Depth Shallow Shallow Respiratory Pattern Regular Regular Blood Pressure 119/77 Blood Pressure [Right Arm] Blood Pressure Mean 91 Blood Pressure Mean [Right Arm] Blood Pressure Position Sitting Blood Pressure Position [Right Arm] Pulse Oximetry 94 Oxygen Delivery Method Nasal Cannula Nasal Cannula Nasal Cannula Oxygen Flow Rate 6 6 6 Sepsis Recent Fever Within 48 Hours No Sepsis New/Unexplained Change in Mental Status No Sepsis Action Taken by Nursing No Action Required 02/13/23 09:35 02/13/23 09:51 02/13/23 09:45 Temperature Temperature Source Pulse Rate 78 75 Pulse Rate [Apical] 94 H Pulse Rhythm [Apical] Regular Pulse Strength [Apical] Normal Respiratory Rate 22 22 Respiratory Effort / Characteristics Spontaneous Short of Breath Respiratory Depth Normal Respiratory Pattern Regular Blood Pressure Blood Pressure [Right Arm] 129/78 Blood Pressure Mean Blood Pressure Mean [Right Arm] 95 Blood Pressure Position Blood Pressure Position [Right Arm] Sitting Pulse Oximetry 94 93 Oxygen Delivery Method Nasal Cannula Nasal Cannula Oxygen Flow Rate 6 Sepsis Recent Fever Within 48 Hours Sepsis New/Unexplained Change in Mental Status Sepsis Action Taken by Nursing 02/13/23 11:15 02/13/23 12:01 02/13/23 10:30 Temperature Temperature Source Pulse Rate Pulse Rate [Apical] 78 74 74 Pulse Rhythm [Apical] Regular Regular Regular Pulse Strength [Apical] Normal Normal Normal Respiratory Rate 20 22 20 Respiratory Effort / Characteristics Non-Labored Spontaneous Spontaneous Short of Breath Spontaneous Short of Breath Respiratory Depth Normal Respiratory Pattern Regular Regular Regular Blood Pressure Blood Pressure [Right Arm] 111/64 150/74 H 132/75 Blood Pressure Mean Blood Pressure Mean [Right Arm] 79 99 94 Blood Pressure Position Blood Pressure Position [Right Arm] Sitting Sitting Sitting Pulse Oximetry 93 93 93 Oxygen Delivery Method Nasal Cannula Nasal Cannula Nasal Cannula Oxygen Flow Rate 6 6 6 Sepsis Recent Fever Within 48 Hours Sepsis New/Unexplained Change in Mental Status Sepsis Action Taken by Nursing 02/13/23 14:15 Temperature Temperature Source Pulse Rate 56 L Pulse Rate [Apical] Pulse Rhythm [Apical] Pulse Strength [Apical] Respiratory Rate Respiratory Effort / Characteristics Respiratory Depth Respiratory Pattern Blood Pressure Blood Pressure [Right Arm] Blood Pressure Mean Blood Pressure Mean [Right Arm] Blood Pressure Position Blood Pressure Position [Right Arm] Pulse Oximetry Oxygen Delivery Method Oxygen Flow Rate Sepsis Recent Fever Within 48 Hours Sepsis New/Unexplained Change in Mental Status Sepsis Action Taken by Nursing Laboratory Data 02/13/23 09:45 02/13/23 09:45 Lab Results 02/13/23 02/13/23 02/13/23 Range/Units 09:45 09:45 09:45 WBC 14.10 H (4.8-10.8) K/ul RBC 3.98 L (4.20-5.40) M/uL Hgb 12.1 (12.0-16.0) g/dl Hct 35.5 L (37.0-47.0) % MCV 89.2 (80.0-100.0) fL MCH 30.4 (25.0-34.0) pg MCHC 34.1 (32.0-36.0) g/dL RDW Std Deviation 48.4 H (36.4-46.3) fL RDW Coeff of Karel 14.9 H (11.5-14.5) % Plt Count 266 (130-400) K/uL MPV 9.9 (9.4-12.4) fL Immature Gran % (Auto) 1.1 % Neut % (Auto) 70.5 % Lymph % (Auto) 18.8 % Amelia % (Auto) 8.3 % Eos % (Auto) 0.9 % Baso % (Auto) 0.4 % Neut # (Auto) 9.95 H (1.40-6.50) K/uL Lymph # (Auto) 2.65 (1.2-3.4) K/uL Amelia # (Auto) 1.17 H (0.11-0.59) K/uL Eos # (Auto) 0.13 (0-0.50) K/uL Baso # (Auto) 0.05 (0-0.2) K/uL Immature Gran # (Auto) 0.15 (0.01-0.20) K/uL ABG pH (7.35-7.45) ABG pCO2 (35-46) mmHg ABG pO2 (80-95) mmHg ABG HCO3 (19-24) mmol/L ABG O2 Saturation (90-95) % ABG Base Excess (-9-1.8) mEq/L VBG pH 7.35 L (7.36-7.41) VBG pCO2 54 H (38-50) mmHg VBG pO2 31 mmHg VBG HCO3 30 mmol/L VBG O2 Saturation < 60.0 % VBG Base Excess 2.9 mEq/L Sodium 132 L (136-145) mmol/L Potassium 3.0 L (3.5-5.1) mmol/L Chloride 94 L (98-107) mmol/L Carbon Dioxide 30 (21-32) mmol/L Anion Gap 8 (3-11) BUN 20 (6-23) mg/dl Creatinine 1.05 (0.6-1.2) mg/dl Est Cr Clr Drug Dosing 53.7 ml/min Est GFR ( Amer) 60.6 ml/min Est GFR (Non-Af Amer) 52.3 ml/min BUN/Creatinine Ratio 19.0 (10-20) Glucose 106 H (70-99(Fasting)) mg/dl Calcium 9.7 (8.6-10.3) mg/dl Total Bilirubin 0.9 (0.2-1.0) mg/dl AST 46 H (13-39) U/L ALT 35 (7-52) U/L Alkaline Phosphatase 84 (34-104) U/L Troponin I High Sens 27.3 H (0-14) pg/ml Total Protein 6.7 (6.0-8.3) gm/dl Albumin 4.1 (3.4-5.0) gm/dl Globulin 2.6 (2.5-4.0) gm/dl Albumin/Globulin Ratio 1.6 (0.9-2) Lipase 12 (11-82) U/L 02/13/23 Range/Units 14:30 WBC (4.8-10.8) K/ul RBC (4.20-5.40) M/uL Hgb (12.0-16.0) g/dl Hct (37.0-47.0) % MCV (80.0-100.0) fL MCH (25.0-34.0) pg MCHC (32.0-36.0) g/dL RDW Std Deviation (36.4-46.3) fL RDW Coeff of Karel (11.5-14.5) % Plt Count (130-400) K/uL MPV (9.4-12.4) fL Immature Gran % (Auto) % Neut % (Auto) % Lymph % (Auto) % Amelia % (Auto) % Eos % (Auto) % Baso % (Auto) % Neut # (Auto) (1.40-6.50) K/uL Lymph # (Auto) (1.2-3.4) K/uL Amelia # (Auto) (0.11-0.59) K/uL Eos # (Auto) (0-0.50) K/uL Baso # (Auto) (0-0.2) K/uL Immature Gran # (Auto) (0.01-0.20) K/uL ABG pH 7.35 (7.35-7.45) ABG pCO2 52 H (35-46) mmHg ABG pO2 86 (80-95) mmHg ABG HCO3 29 H (19-24) mmol/L ABG O2 Saturation 98.0 H (90-95) % ABG Base Excess 2.1 H (-9-1.8) mEq/L VBG pH (7.36-7.41) VBG pCO2 (38-50) mmHg VBG pO2 mmHg VBG HCO3 mmol/L VBG O2 Saturation % VBG Base Excess mEq/L Sodium (136-145) mmol/L Potassium (3.5-5.1) mmol/L Chloride (98-107) mmol/L Carbon Dioxide (21-32) mmol/L Anion Gap (3-11) BUN (6-23) mg/dl Creatinine (0.6-1.2) mg/dl Est Cr Clr Drug Dosing ml/min Est GFR ( Amer) ml/min Est GFR (Non-Af Amer) ml/min BUN/Creatinine Ratio (10-20) Glucose (70-99(Fasting)) mg/dl Calcium (8.6-10.3) mg/dl Total Bilirubin (0.2-1.0) mg/dl AST (13-39) U/L ALT (7-52) U/L Alkaline Phosphatase (34-104) U/L Troponin I High Sens (0-14) pg/ml Total Protein (6.0-8.3) gm/dl Albumin (3.4-5.0) gm/dl Globulin (2.5-4.0) gm/dl Albumin/Globulin Ratio (0.9-2) Lipase (11-82) U/L Administered Medications Discontinued Medications Albuterol (Albuterol 0.083% Nebu Soln 3 Ml Vial) 5 mg NEB NOW STA; Protocol Stop: 02/13/23 09:46 Last Admin: 02/13/23 10:04 Dose: 5 mg Documented By: LIZA Levofloxacin/Dextrose (Levaquin/D5w) 750 mg in 150 mls @ 100 mls/hr IV NOW STA Stop: 02/13/23 14:22 Last Admin: 02/13/23 13:48 Dose: 100 mls/hr Documented By: KEVIN Ioversol (Ioversol 350 Mg 125ml Prefilled Syringe) 120 ml IV ONCE ONE Stop: 02/13/23 11:44 Last Admin: 02/13/23 11:43 Dose: 120 ml Documented By: LACHELLE Methylprednisolone (Methylprednisolone 125 Mg/2 Ml Vial) 60 mg IV NOW STA Stop: 02/13/23 09:47 Last Admin: 02/13/23 10:04 Dose: 60 mg Documented By: LIZA Imaging Data Radiologist's Impression: Chest X-Ray 02/13/23 09:35 XR chest 1V portable CLINICAL HISTORY: Chest pain, nonspecific TECHNIQUE: Single frontal radiograph of the chest was obtained. Comparison: Comparison is made to chest radiograph of 2022 FINDINGS: No lines and tubes are seen. Cardiomegaly is noted. Reticular interstitial opacities are seen. No evidence of pleural effusion or pneumothorax. IMPRESSION: Interstitial thickening and cardiomegaly without acute abnormalities. ACT 112: Negative or not required by law. Electronically signed by: Anthony Lewis M.D. 02/13/2023 9:54 AM Abdomen/Pelvis CT 02/13/23 09:44 CT abd pelvis IV con only CLINICAL HISTORY: abd pain TECHNIQUE: Helical axial images of the abdomen and pelvis were obtained and displayed. Automated dose lowering techniques and/or adjustment according to patient size were utilized for this exam. This exam was performed with intravenous contrast. CT DOSE: 2198.38 mGy.cm COMPARISON: Comparison is made to CT abdomen pelvis 08/22/2022 FINDINGS: Lower chest: No acute abnormality. Liver: Numerous hypodensities are seen within the liver measuring up to 61 mm in diameter. These were not seen on the prior exam. Gallbladder and biliary tree: No calcified gallstones. Normal caliber wall. No intra- or extrahepatic biliary ductal dilation. Pancreas: Fatty replacement of the pancreas is seen. Spleen: Unremarkable. Adrenals: Unremarkable. Kidneys and ureters: Nonobstructive nephrolithiasis is seen. Bladder: Unremarkable. Reproductive organs: Unremarkable. Bowel: Diverticulosis is seen without evidence of diverticulitis. A small hiatal hernia is seen. Lymph nodes Retroperitoneal: Unremarkable. Pelvic: Unremarkable. Mesenteric: Unremarkable. Peritoneum: Normal. Vessels: Atherosclerotic calcifications are seen. Abdominal wall: Bilateral fat-containing inguinal hernias are seen. Fat-contain ing umbilical hernia is seen. Bones: Degenerative changes in the visualized spine. IMPRESSION: Interval development of multiple hypodensities in the liver. Findings are new from prior exam and are concerning for metastatic disease of unknown primary, hepatic abscess is possible considered less likely.. ACT 112: Positive. There are findings on this exam that require communication between the performing entity and the patient following Patient Test Result Information Act ([place] Act 112) guidelines. Electronically signed by: Anthony Lewis M.D. 02/13/2023 12:[address] 02/13/23 09:44 CT angio chest PE protocol, CT thoracic spine w con CLINICAL HISTORY: PE TECHNIQUE: Multidetector row helical CT of the chest was performed with angiographic protocol. Coronal and sagittal reformations were obtained. Coronal and sagittal MIPS were obtained from the axial data set and were submitted for review. Automated dose lowering techniques and/or adjustment according to patient size were utilized for this exam. Dedicated views of the thoracic spine were obtained. Comparison: Comparison is made to chest radiograph 02/13/2023, chest radiograph 08/22/2022, and CTA chest 04/16/2021 FINDINGS: Lungs and pleura: There is a 41 x 20 mm density in the left anterior lung which is new from prior exam. Extensive emphysema and interstitial thickening are seen. Heart and pericardium: Cardiomegaly is seen with biatrial enlargement. Vessels: No evidence of pulmonary embolism. Mediastinum and thuy: Multiple lymph nodes measure up to 8 mm. Chest wall and lower neck: Unremarkable. Abdomen: For findings below the diaphragm, please refer to CT of the abdomen dated the same. Bones: Degenerative changes in the thoracic spine. IMPRESSION: Extensive emphysema and interstitial thickening. No evidence of pulmonary embolus. There is a new consolidative density in the left upper lobe which may represent a focus of pneumonia. Follow-up to resolution is recommended. ACT 112: Negative or not required by law. Electronically signed by: Anthony Lewis M.D. 02/13/2023 12:06 PM Chest CTA 02/13/23 09:46 CT angio chest PE protocol, CT thoracic spine w con CLINICAL HISTORY: PE TECHNIQUE: Multidetector row helical CT of the chest was performed with angiographic protocol. Coronal and sagittal reformations were obtained. Coronal and sagittal MIPS were obtained from the axial data set and were submitted for review. Automated dose lowering techniques and/or adjustment according to patient size were utilized for this exam. Dedicated views of the thoracic spine were obtained. Comparison: Comparison is made to chest radiograph 02/13/2023, chest radiograph 08/22/2022, and CTA chest 04/16/2021 FINDINGS: Lungs and pleura: There is a 41 x 20 mm density in the left anterior lung which is new from prior exam. Extensive emphysema and interstitial thickening are seen. Heart and pericardium: Cardiomegaly is seen with biatrial enlargement. Vessels: No evidence of pulmonary embolism. Mediastinum and thuy: Multiple lymph nodes measure up to 8 mm. Chest wall and lower neck: Unremarkable. Abdomen: For findings below the diaphragm, please refer to CT of the abdomen dated the same. Bones: Degenerative changes in the thoracic spine. IMPRESSION: Extensive emphysema and interstitial thickening. No evidence of pulmonary embolus. There is a new consolidative density in the left upper lobe which may represent a focus of pneumonia. Follow-up to resolution is recommended. ACT 112: Negative or not required by law. Electronically signed by: Anthony Lewis M.D. 02/13/2023 12:06 PM Discharge Plan Visit Data Chief Complaint: Shortness of Breath/Dyspnea ED Provider: Polo Calhoun Discharge Problem: Hypoxia, COPD exacerbation, Respiratory failure, Pneumonia Forms Stand Alone Forms: [facility] Prescriptions Prescriptions: No Action (DME) CPAP Machine Misc See Rx Instructions .ROUTE .MEDSUPPLY Qty: 1 0RF Rx Instructions: Auto CPAP 5-12 H20, tubing, supplies heated humification. [place] w/ AHI and compliance. ELO: 99yr sertraline [Zoloft] 100 mg tablet 100 mg PO QAM Qty: 30 3RF (DME) Portable Oxygen Misc See Rx Instructions .MEDSUPPLY Qty: 1 0RF Rx Instructions: Oxygen 2 liters continuous with portable concentrator. STEPHANI 99 aspirin [Lo-Dose Aspirin] 81 mg tablet,delayed release (DR/EC) 81 mg PO QAM Qty: 30 Rx Instructions: Take with food clonidine HCl 0.1 mg tablet 0.1 mg PO BID@0800,2000 PRN (Reason: HTN) albuterol sulfate [Ventolin HFA] 90 mcg/actuation HFA aerosol inhaler 2 puff INH Q4H PRN (Reason: Wheezing) Qty: 18 3RF ipratropium-albuterol 0.5 mg-3 mg(2.5 mg base)/3 mL solution for nebulization 3 ml INH Q8H PRN (Reason: shortness of breath or wheezing) Qty: 270 3RF Anoro Ellipta 62.5-25 mcg/actuation blister with device 1 inh inhalation DAILY Qty: 60 3RF diltiazem HCl [Cartia XT] 180 mg Capsule,Extended Release 24hr 180 mg PO QAM montelukast 10 mg tablet 10 mg PO HS furosemide [Lasix] 20 mg tablet 20 mg PO DAILY levothyroxine 100 mcg Tablet 100 mcg PO QAM loratadine [Claritin] 10 mg Tablet 10 mg PO QAM buspirone 15 mg tablet 15 mg PO HS losartan [Cozaar] 100 mg tablet 100 mg PO QAM donepezil [Aricept] 5 mg tablet 5 mg PO QAM Rx Instructions: Take 1 tab by mouth daily. Take with largest meal of the day. azithromycin [Zithromax] 250 mg Tablet 250 mg PO MOWEFR Rx Instructions: start on day 2 of therapy pantoprazole [Protonix] 40 mg tablet,delayed release (DR/EC) 40 mg PO BID 30 Days Qty: 60 0RF benzonatate 100 mg capsule 100 mg PO TID PRN (Reason: Cough) buspirone 15 mg tablet 7.5 mg PO BID gabapentin 100 mg capsule 100 mg PO HS polyethylene glycol 3350 [Miralax] 17 gram Powder In Packet 17 g PO DAILY PRN (Reason: constipation) Qty: 30 0RF azelastine 137 mcg (0.1 %) Aerosol,[place] 1 spray INTRANASAL BID docusate sodium 100 mg capsule 100 mg PO BID Lactinex 1 million cell tablet,chewable 1 tab PO BID Qty: 30 0RF Referrals Referrals: Cristina Vizcarra MD [Primary Care Provider] -
[2023-02-13 09:55] LABS: Base Excess VBG 2.9 mEq/L; HCO3 VBG 30 mmol/L; Oxygen Saturation VBG < 60.0 %; PCO2 VBG 54 mmHg (38-50); PO2 VBG 31 mmHg; pH VBG 7.35 (7.36-7.41)
--- NOTE | 2023-02-13 09:56 | XRay Report ---
XR chest 1V portable CLINICAL HISTORY: Chest pain, nonspecific TECHNIQUE: Single frontal radiograph of the chest was obtained. Comparison: Comparison is made to chest radiograph of 2022 FINDINGS: No lines and tubes are seen. Cardiomegaly is noted. Reticular interstitial opacities are seen. No teresa dence of pleural effusion or pneumothorax. IMPRESSION: Interstitial thickening and cardiomegaly without acute abnormalities. ACT 112: Negative or not required by law. Electronically signed by: Anthony Lewis M.D. 02/13/2023 9:54 AM
[2023-02-13 10:00] LABS: Basophils # (auto) 0.05 K/uL (0-0.2); Basophils % (auto) 0.4 %; Eosinophils # (auto) 0.13 K/uL (0-0.50); Eosinophils % (auto) 0.9 %; Hematocrit (blood only) 35.5 % (37.0-47.0); Hemoglobin 12.1 g/dl (12.0-16.0); Immature Granulocytes # (auto) 0.15 K/uL (0.01-0.20); Immature Granulocytes % (auto) 1.1 %; Lymphocytes # (auto) 2.65 K/uL (1.2-3.4); Lymphocytes % (auto) 18.8 %; Mean Corpuscular Hemoglobin 30.4 pg (25.0-34.0); Mean Corpuscular Hgb Conc 34.1 g/dL (32.0-36.0); Mean Corpuscular Volume 89.2 fL (80.0-100.0); Mean Platelet Volume 9.9 fL (9.4-12.4); Monocytes # (auto) 1.17 K/uL (0.11-0.59); Monocytes % (auto) 8.3 %; Neutrophils # (auto) 9.95 K/uL (1.40-6.50); Neutrophils % (auto) 70.5 %; Platelet Count 266 K/uL (130-400); RDW Coefficient of Variation 14.9 % (11.5-14.5); RDW Standard Deviation 48.4 fL (36.4-46.3); Red Blood Count 3.98 M/uL (4.20-5.40)
[2023-02-13 10:14] LABS: Albumin Globulin Ratio 1.6 (0.9-2); Albumin Level 4.1 gm/dl (3.4-5.0); Bilirubin,Total 0.9 mg/dl (0.2-1.0); Calcium 9.7 mg/dl (8.6-10.3); Creatinine Clr Calc Pharmacy 53.7 ml/min; Est GFR (African American) 60.6 ml/min; Est GFR (Non-African American) 52.3 ml/min; Globulin 2.6 gm/dl (2.5-4.0); Total Protein 6.7 gm/dl (6.0-8.3)
[2023-02-13 10:20] LABS: Troponin I High Sensitivity 27.3 pg/ml (0-14)
[2023-02-13] MEDS ORDERED: IOVERSOL 350 MG 125mL Prefilled Syringe IV ONE (11:43)
--- NOTE | 2023-02-13 11:51 | Electrocardiogram Report ---
Test Reason : Blood Pressure : / mmHG Vent. Rate : 069 BPM Atrial Rate : 069 BPM P-R Int : 142 ms QRS Dur : 094 ms QT Int : 392 ms P-R-T Axes : 015 085 010 degrees QTc Int : 420 ms Sinus rhythm with marked sinus arrhythmia Minimal voltage criteria for LVH, may be normal variant Borderline ECG When compared with ECG of 23-AUG-2022 22:05, QRS axis Shifted right Non-specific change in ST segment in Inferior leads Confirmed by Sixto Goldman ([id number]) on 02/13/2023 11:51:02 AM Referred By: Farzana Love Confirmed By:Sixto Goldman
--- NOTE | 2023-02-13 12:09 | CT Scan Report ---
CT angio chest PE protocol, CT thoracic spine w con CLINICAL HISTORY: PE TECHNIQUE: Multidetector row helical CT of the chest was performed with angiographic protocol. Stuart l and sagittal reformations were obtained. Coronal and sagittal MIPS were obtained from the axial lynn a set and were submitted for review. Automated dose lowering techniques and/or adjustment according to patient size were utilized for this exam. Dedicated views of the thoracic spine were obtained. Comparison: Comparison is made to chest radiograph 02/13/2023, chest radiograph 08/22/2022, and CTA [facility] st 04/16/2021 FINDINGS: Lungs and pleura: There is a 41 x 20 mm density in the left anterior lung which is new from prior exa m. Extensive emphysema and interstitial thickening are seen. Heart and pericardium: Cardiomegaly is seen with biatrial enlargement. Vessels: No evidence of pulmonary embolism. Mediastinum and thuy: Multiple lymph nodes measure up to 8 mm. Chest wall and lower neck: Unremarkable. Abdomen: For findings below the diaphragm, please refer to CT of the abdomen dated the same. Bones: Degenerative changes in the thoracic spine. IMPRESSION: Extensive emphysema and interstitial thickening. No evidence of pulmonary embolus. There is a new con solidative density in the left upper lobe which may represent a focus of pneumonia. Follow-up to reso lution is recommended. ACT 112: Negative or not required by law. Electronically signed by: Anthony Lewis M.D. 02/13/2023 12:06 PM
--- NOTE | 2023-02-13 12:40 | CT Scan Report ---
CT abd pelvis IV con only CLINICAL HISTORY: abd pain TECHNIQUE: Helical axial images of the abdomen and pelvis were obtained and displayed. Automated dose lowering techniques and/or adjustment according to patient size were utilized for this exam. This e xam was performed with intravenous contrast. CT DOSE: 2198.38 mGy.cm COMPARISON: Comparison is made to CT abdomen pelvis 08/22/2022 FINDINGS: Lower chest: No acute abnormality. Liver: Numerous hypodensities are seen within the liver measuring up to 61 mm in diameter. These were not seen on the prior exam. Gallbladder and biliary tree: No calcified gallstones. Normal caliber wall. No intra- or extrahepatic biliary ductal dilation. Pancreas: Fatty replacement of the pancreas is seen. Spleen: Unremarkable. Adrenals: Unremarkable. Kidneys and ureters: Nonobstructive nephrolithiasis is seen. Bladder: Unremarkable. Reproductive organs: Unremarkable. Bowel: Diverticulosis is seen without evidence of diverticulitis. A small hiatal hernia is seen. Lymph nodes Retroperitoneal: Unremarkable. Pelvic: Unremarkable. Mesenteric: Unremarkable. Peritoneum: Normal. Vessels: Atherosclerotic calcifications are seen. Abdominal wall: Bilateral fat-containing inguinal hernias are seen. Fat-containing umbilical hernia i s seen. Bones: Degenerative changes in the visualized spine. IMPRESSION: Interval development of multiple hypodensities in the liver. Findings are new from prior exam and are concerning for metastatic disease of unknown primary, hepatic abscess is possible considered less halle perez.. ACT 112: Positive. There are findings on this exam that require communication between the performing entity and the patient following Patient Test Result Information Act ([place] Act 112) guidelines. Electronically signed by: Anthony Lewis M.D. 02/13/2023 12:38 PM
[2023-02-13] MEDS ORDERED: levoFLOXacin/D5W 750 MG/150 ML BAG IV STA (12:53)
--- NOTE | 2023-02-13 14:22 | History & Physical Report ---
Date of Service February 13, 2023 Assessment & Plan (1) Acute on chronic respiratory failure with hypoxia: (2) Pneumonia: (3) COPD exacerbation: (4) ILD (interstitial lung disease): Plan: This is a 72-year-old female on home hospice with PMH of chronic hypoxic res piratory failure on 4 L NC 2/2 COPD, pulmonary fibrosis, anxiety, hypertension, dementia and other medical problems listed below who presents with confusion and found to have acute on chronic hypoxic respiratory failure, TOMMY PNA and COPD exacerbation. Now saturating at 95% on 6L NC (baseline 4L NC) ABG consistent with chronic respiratory acidosis, compensated Given Levaquin and 60mg IV Solu-medrol in the ED Chest CTA with extensive emphysema and interstitial thickening. No evidence of pulmonary embolus. There is a new consolidative density in the left upper lobe which may represent a focus of pneumonia Home hospice with [facility] for extensive pulmonary disease - confirmed wishes with patient (A&Ox3 during discussion) that she wants treatment with IV abx, steroids and bipap if needed during admission Continue Unasyn and doxy for CAP coverage given cephalosporin allergy Continue solu-medrol 40mg Q8H and QIDR duonebs for COPD exacerbation as well as home inh, Singulair Supplemental O2, continue home morphine as needed along with bowel regimen (5) Hypokalemia: Plan: K initially 3.0 - replacing. Monitor daily. May need K supplementation at time of discharge if lasix is continued (6) HTN (hypertension): Plan: Missed AM meds. Continue clonidine BID, diltiazem (7) CKD (chronic kidney disease), stage III: Plan: Cr 1.05 at baseline. Continue to monitor with daily BMP (8) Hypothyroidism: Plan: Continue levothyroxine (9) Anxiety and depression: Plan: Continue Ativan QID PRN, buspirone TID, Zoloft per home meds (10) Mild cognitive impairment: Plan: Continue Aricept Extensive discussion with splicer operator over the phone today; medication reconciliation completed and will continue all hospice medications for now. Hospice to evaluate tomorrow and clarify goals of care moving forward. DVT Ppx: SQ lovenox Code status: DNR/DNI per discussion with patient PCP: Zackery [facility] hospice providers Dispo: Admitted to PCU Patient seen in collaboration with Dr. Murry. Please see addendum. History of Present Illness Chief Complaint: Shortness of breath Primary Care Provider: Cristina Vizcarra MD This is a 72-year-old female on home hospice with PMH of chronic hypoxic respiratory failure on 4 L NC 2/2 COPD, pulmonary fibrosis, anxiety, hypertension, dementia and other medical problems listed below who presents with confusion. Patient lives alone and receives home hospice help and nursing 5 days a week. Power went out in her apartment complex and therefore was not able to utilize her oxygen. Was looking for her portable set, but could not find it and began to feel confused and nauseated and was brought into ED for further evaluation. Patient admits she has been feeling poorly over the past 3 weeks with malaise, progressive shortness of breath and productive thick, green sputum. Also endorses some nausea, poor appetite and intermittent dry heaving, most recently this morning. Patient does not follow with a pulmonary provider but receives most of her medical care through the hospice physician as well as Dr. Vizcarra. Is not certain of her medications as there have been multiple changes recently, but states she manages them herself. Took morphine this morning but denies taking any of her other normal home meds. Feeling better on increased oxygen in ED although still feels groggy and somewhat confused. Denies any fever, chills, chest pain, vomiting, abdominal pain, dysuria, diarrhea or constipation. Discussed with [facility] triage nurse extensively. They will send in a nurse to evaluate patient tomorrow. Went over medication list. Allergies Allergy/AdvReac Type Severity Reaction Status Date / Time baclofen Allergy Severe Unknown Verified 08/22/22 07:33 cefuroxime Allergy Severe Hives and Verified 08/22/22 07:33 Dizziness hydralazine Allergy Intermediate joint pain Verified 08/22/22 07:33 tetracycline Allergy Mild RASH Verified 08/22/22 07:33 budesonide AdvReac Severe caused her Verified 08/22/22 07:33 to cough constantly amlodipine AdvReac Mild Edema. Verified 08/22/22 07:33 Home Medications Medication Instructions Recorded Confirmed Type loratadine 10 mg tablet (Claritin) 10 mg PO QAM PRN Allergic Symptoms 07/29/19 02/13/23 History CPAP Machine #1 ea 08/06/19 02/13/23 Rx diltiazem HCl 180 mg 180 mg PO QAM 08/12/19 02/13/23 History capsule,extended release 24 hr (Cartia XT) sertraline 100 mg tablet (Zoloft) 100 mg PO QAM #30 tabs 10/15/19 02/13/23 Rx montelukast 10 mg tablet 10 mg PO HS 12/06/19 02/13/23 History furosemide 20 mg tablet (Lasix) 20 mg PO DAILY 12/07/19 02/13/23 History levothyroxine 100 mcg tablet 100 mcg PO QAM 01/23/20 02/13/23 History Portable Oxygen #1 ea 04/04/20 02/13/23 Rx clonidine HCl 0.1 mg tablet 0.2 mg PO BID@0800,199905/13/20 02/13/23 History buspirone 15 mg tablet 15 mg PO TID 01/16/21 02/13/23 History gabapentin 100 mg capsule 100 mg PO BID 01/16/21 02/13/23 History polyethylene glycol 3350 17 gram 17 g PO DAILY PRN constipation #30 01/19/21 02/13/23 Rx oral powder packet (Miralax) ea donepezil 5 mg tablet (Aricept) 5 mg PO QAM 01/20/21 02/13/23 History ipratropium 0.5 mg-albuterol 3 mg 3 ml inhalation Q8H PRN shortness 03/17/21 02/13/23 Rx (2.5 mg base)/3 mL nebulization of breath or wheezing #270 mL soln docusate sodium 100 mg capsule 100 mg PO BID PRN Constipation 04/16/21 02/13/23 History Lactobacillus acidoph-L.bulgaricus 1 tab PO BID #30 tabs 04/19/21 02/13/23 Rx 1 million cell chewable tablet (Lactinex) pantoprazole 40 mg tablet,delayed 40 mg PO BID 30 days #60 tabs 08/26/22 02/13/23 Rx release (Protonix) acetaminophen 500 mg tablet 500 mg PO BID 02/13/23 02/13/23 History aspirin 81 mg capsule 81 mg PO DAILY 02/13/23 02/13/23 History azithromycin 250 mg tablet 250 mg PO MOWEFR@0900 02/13/23 02/13/23 History bisacodyl 10 mg rectal suppository 5 mg NJ DAILY PRN Constipation 02/13/23 02/13/23 History (Dulcolax (bisacodyl)) clonidine HCl 0.1 mg tablet 0.1 mg PO BID PRN elevated bp 02/13/23 02/13/23 History dextromethorphan-guaifenesin ER 60 1 tab PO Q12H 02/13/23 02/13/23 History mg-1,200 mg tab,extend release,12hr (Mucinex DM) famotidine 20 mg tablet 20 mg PO BID 02/13/23 02/13/23 History famotidine 20 mg tablet (Pepcid) 20 mg PO DAILY 02/13/23 02/13/23 History guaifenesin 100 mg/5 mL oral liquid 200 mg PO Q4H PRN Cough 02/13/23 02/13/23 History haloperidol lactate 2 mg/mL oral 0.5 mg PO Q4H PRN Agitation 02/13/23 02/13/23 History concentrate lactulose 10 gram/15 mL oral 10 g PO TID PRN Constipation 02/13/23 02/13/23 History solution lorazepam 0.5 mg tablet (Ativan) 0.5 mg PO QID PRN Anxiety 02/13/23 02/13/23 History methadone 5 mg tablet 5 mg PO TID 02/13/23 02/13/23 History morphine 100 mg/5 mL oral 20 mg PO Q2H PRN Pain 02/13/23 02/13/23 History concentrate ondansetron 4 mg oral soluble film 4 mg PO Q6H PRN Nausea 02/13/23 02/13/23 History prednisone 10 mg tablet 40 mg PO DAILY 02/13/23 02/13/23 History promethazine-DM 6.25 mg-15 mg/5 mL 5 ml PO QID PRN Cough 02/13/23 02/13/23 History oral syrup sennosides 8.6 mg-docusate sodium 2 tab-cap PO BID 02/13/23 02/13/23 History 50 mg tablet (Senna-S) tamsulosin 0.4 mg capsule 0.4 mg PO DAILY 02/13/23 02/13/23 History Past Med/Surg History Medical History Anxiety and depression Chronic back pain CKD (chronic kidney disease), stage III stage 3. follows with pcp. Degenerative disc disease GERD (gastroesophageal reflux disease) History of breast cancer bilateral HTN (hypertension) Hx of duodenal ulcer Hyperlipidemia Hypothyroidism ILD (interstitial lung disease) Mild cognitive impairment On home oxygen therapy 2lpm via n/c continuous BERNA (obstructive sleep apnea) intolerant to cpap Osteoarthritis Pulmonary fibrosis Restless legs syndrome hx SCC (squamous cell carcinoma) face Surgical History History of bilateral tubal ligation History of bronchoscopy History of cardiac cath no stents. (~1979) History of colonoscopy History of esophagogastroduodenoscopy (EGD) History of lung surgery thorascopy for lung biopsy S/P mastectomy, bilateral lymph node removal Left arm S/P thyroidectomy partial (r/t nodule) Family History Sister Myocardial infarction Sister Stroke Other No family history of adverse response to anesthesia Social History Smoking Status: Former smoker Tobacco Type: Cigarettes Cigarettes Per Day: 50 pack yr hx; Second Hand Exposure: No; Do You Dip or Chew Tobacco: No; Hx Alcohol Use: No Hx Substance Use: No Preferred Language: Estonian Communication Ability: Effective Software Analyst Required: No Beliefs That Will Affect Care: None marital status: Current Living Situation: Alone Current Living Situation Comment: [facility] apartment [facility] How many Children do You have: 2 Feels Safe at Home: Yes Safety Concerns: Feels Safe At This Time Assistive Devices: Glasses, Hospital Bed, Oxygen - Continuous and Walker Review of Systems Review of Systems: At least ten systems reviewed and negative except as noted in the HPI. Physical Exam Physical Exam: General Appearance: WD/WN, vitals as above, NAD, sitting up in bed, pleasant Head: normocephalic, atraumatic Eyes: normal inspection, PERRL, conjunctivae normal, anicteric sclerae ENT: external ear and nose normal, oropharynx normal Neck: normal visual inspection, trachea midline, no thyromegaly Respiratory: increased respiratory effort, decreased breath sounds, scattered wheezing throughout. No accessory muscle use Cardiovascular: regular rate, rhythm, no murmur, normal peripheral pulses, no BLE edema. Vessels: no JVD Chest: normal inspection of chest Abdomen/GI: normal bowel sounds, soft, nontender, no hepatosplenomegaly Extremities/Musculoskeletal: no cyanosis or clubbing, extremities motor strength 5/5 Neurologic: PERRL, EOMI, accommodation nl, no face palsy, no dysarthria, CN's II-XI intact bilaterally and moves all extremities Psychiatric: A+Ox3, euthymic affect Skin: no rashes, normal color, warm/dry Results & Data Results & Data Vital Signs (Past 12 Hours) Vital Signs Temp Pulse Pulse Resp BP BP Pulse Ox 02/13/23 14:15 56 L 02/13/23 10:30 74 20 132/75 93 02/13/23 12:01 74 22 150/74 H 93 02/13/23 11:15 78 20 111/64 93 02/13/23 09:45 94 H 22 129/78 93 02/13/23 09:51 75 02/13/23 09:35 78 22 94 02/13/23 09:40 02/13/23 09:40 37.2 C 78 24 119/77 94 02/13/23 09:40 O2 Del Method O2 Flow Rate 02/13/23 14:15 02/13/23 10:30 Nasal Cannula 6 02/13/23 12:01 Nasal Cannula 6 02/13/23 11:15 Nasal Cannula 6 02/13/23 09:45 Nasal Cannula 6 02/13/23 09:51 02/13/23 09:35 Nasal Cannula 02/13/23 09:40 Nasal Cannula 6 02/13/23 09:40 Nasal Cannula 6 02/13/23 09:40 Nasal Cannula 6 Laboratory Results Short CBC 02/13/23 Range/Units 09:45 WBC 14.10 H (4.8-10.8) K/ul Hgb 12.1 (12.0-16.0) g/dl Hct 35.5 L (37.0-47.0) % Plt Count 266 (130-400) K/uL BMP 02/13/23 09:45 Sodium 132 L Potassium 3.0 L Chloride 94 L Carbon Dioxide 30 BUN 20 Creatinine 1.05 Glucose 106 H Calcium 9.7 Liver Function 02/13/23 Range/Units 09:45 Total Bilirubin 0.9 (0.2-1.0) mg/dl AST 46 H (13-39) U/L ALT 35 (7-52) U/L Alkaline Phosphatase 84 (34-104) U/L Albumin 4.1 (3.4-5.0) gm/dl Diagnostic Findings Chest X-Ray 02/13/23 09:35 XR chest 1V portable CLINICAL HISTORY: Chest pain, nonspecific TECHNIQUE: Single frontal radiograph of the chest was obtained. Comparison: Comparison is made to chest radiograph of 2022 FINDINGS: No lines and tubes are seen. Cardiomegaly is noted. Reticular interstitial opacities are seen. No evidence of pleural effusion or pneumothorax. IMPRESSION: Interstitial thickening and cardiomegaly without acute abnormalities. ACT 112: Negative or not required by law. Electronically signed by: Anthony Lewis M.D. 02/13/2023 9:54 AM Abdomen/Pelvis CT 02/13/23 09:44 CT abd pelvis IV con only CLINICAL HISTORY: abd pain TECHNIQUE: Helical axial images of the abdomen and pelvis were obtained and displayed. Automated dose lowering techniques and/or adjustment according to patient size were utilized for this exam. This exam was performed with intravenous contrast. CT DOSE: 2198.38 mGy.cm COMPARISON: Comparison is made to CT abdomen pelvis 08/22/2022 FINDINGS: Lower chest: No acute abnormality. Liver: Numerous hypodensities are seen within the liver measuring up to 61 mm in diameter. These were not seen on the prior exam. Gallbladder and biliary tree: No calcified gallstones. Normal caliber wall. No intra- or extrahepatic biliary ductal dilation. Pancreas: Fatty replacement of the pancreas is seen. Spleen: Unremarkable. Adrenals: Unremarkable. Kidneys and ureters: Nonobstructive nephrolithiasis is seen. Bladder: Unremarkable. Reproductive organs: Unremarkable. Bowel: Diverticulosis is seen without evidence of diverticulitis. A small hiatal hernia is seen. Lymph nodes Retroperitoneal: Unremarkable. Pelvic: Unremarkable. Mesenteric: Unremarkable. Peritoneum: Normal. Vessels: Atherosclerotic calcifications are seen. Abdominal wall: Bilateral fat-containing inguinal hernias are seen. Fat- containing umbilical hernia is seen. Bones: Degenerative changes in the visualized spine. IMPRESSION: Interval development of multiple hypodensities in the liver. Findings are new from prior exam and are concerning for metastatic disease of unknown primary, hepatic abscess is possible considered less likely.. ACT 112: Positive. There are findings on this exam that require communication between the performing entity and the patient following Patient Test Result Information Act ([place] Act 112) guidelines. Electronically signed by: Anthony Lewis M.D. 02/13/2023 12:[address] 02/13/23 09:44 CT angio chest PE protocol, CT thoracic spine w con CLINICAL HISTORY: PE TECHNIQUE: Multidetector row helical CT of the chest was performed with angiographic protocol. Coronal and sagittal reformations were obtained. Coronal and sagittal MIPS were obtained from the axial data set and were submitted for review. Automated dose lowering techniques and/or adjustment according to patient size were utilized for this exam. Dedicated views of the thoracic spine were obtained. Comparison: Comparison is made to chest radiograph 02/13/2023, chest radiograph 08/22/2022, and CTA chest 04/16/2021 FINDINGS: Lungs and pleura: There is a 41 x 20 mm density in the left anterior lung which is new from prior exam. Extensive emphysema and interstitial thickening are seen. Heart and pericardium: Cardiomegaly is seen with biatrial enlargement. Vessels: No evidence of pulmonary embolism. Mediastinum and thuy: Multiple lymph nodes measure up to 8 mm. Chest wall and lower neck: Unremarkable. Abdomen: For findings below the diaphragm, please refer to CT of the abdomen dated the same. Bones: Degenerative changes in the thoracic spine. IMPRESSION: Extensive emphysema and interstitial thickening. No evidence of pulmonary embolus. There is a new consolidative density in the left upper lobe which may represent a focus of pneumonia. Follow-up to resolution is recommended. ACT 112: Negative or not required by law. Electronically signed by: Anthony Lewis M.D. 02/13/2023 12:06 PM Chest CTA 02/13/23 09:46 CT angio chest PE protocol, CT thoracic spine w con CLINICAL HISTORY: PE TECHNIQUE: Multidetector row helical CT of the chest was performed with angiographic protocol. Coronal and sagittal reformations were obtained. Coronal and sagittal MIPS were obtained from the axial data set and were submitted for review. Automated dose lowering techniques and/or adjustment according to patient size were utilized for this exam. Dedicated views of the thoracic spine were obtained. Comparison: Comparison is made to chest radiograph 02/13/2023, chest radiograph 08/22/2022, and CTA chest 04/16/2021 FINDINGS: Lungs and pleura: There is a 41 x 20 mm density in the left anterior lung which is new from prior exam. Extensive emphysema and interstitial thickening are seen. Heart and pericardium: Cardiomegaly is seen with biatrial enlargement. Vessels: No evidence of pulmonary embolism. Mediastinum and thuy: Multiple lymph nodes measure up to 8 mm. Chest wall and lower neck: Unremarkable. Abdomen: For findings below the diaphragm, please refer to CT of the abdomen dated the same. Bones: Degenerative changes in the thoracic spine. IMPRESSION: Extensive emphysema and interstitial thickening. No evidence of pulmonary embolus. There is a new consolidative density in the left upper lobe which may represent a focus of pneumonia. Follow-up to resolution is recommended. ACT 112: Negative or not required by law. Electronically signed by: Anthony Lewis M.D. 02/13/2023 12:06 PM ECG Additional Comments: EKG reviewed: Sinus rhythm with marked sinus arrhythmia. Minimal voltage criteria for LVH, may be normal variant. Non-specific change in ST segment in Inferior leads Code Status & VTE Plan VTE Prophylaxis Plan VTE Prophylaxis will be ordered: Yes Supervising Physician Co-Signing Physician Notes Pt seen and examined by myself, Lottie Murry MD on the day of service. Care was coordinated with Nancy Orr PA-C. Please refer to her note for additional information. 72yoF currently on hospice, admitted with acute on chronic respiratory failure. Pt was resting comfortably, NC in nares. Notes that her power went out so she came in to be evaluated. States she will get back on hospice once discharged. Imaging indicating a new pneumonia, IV Unasyn with doxycycline. Consider broadening if worsening. Continue home hospice medications. CM/hospice followup for goals of care in the future. Otherwise as above. (6) HTN (hypertension) Hypertension type: unspecified Qualified Code(s): I10 - Essential (primary) hypertension
[2023-02-13 14:38] LABS: Base Excess ABG 2.1 mEq/L (-9-1.8); HCO3 ABG 29 mmol/L (19-24); PCO2 ABG 52 mmHg (35-46); PO2 ABG 86 mmHg (80-95); pH ABG 7.35 (7.35-7.45)
[2023-02-13 15:04] LABS: Allen Test POS (Pos)
[2023-02-13] MEDS ORDERED: POTASSIUM CHLORIDE CRTAB 20 MEQ TABCR PO STA (15:21)
[2023-02-13] MEDS ORDERED: POLYETHYLENE (MIRALAX) 17 GM PACK PO PRN ×2 (16:03→16:21)
[2023-02-13] MEDS ORDERED: ACETAMINOPHEN 325 MG TAB PO PRN (16:03)
[2023-02-13] MEDS ORDERED: DOCUSATE SODIUM 100 MG CAP PO PRN (16:21)
[2023-02-13] MEDS ORDERED: NON-FORMULARY MEDICATION (Promethazine-Dm 6.25-15 mg/5 mL Syrup) PO PRN (16:21)
[2023-02-13] MEDS ORDERED: guaiFENesin SUGAR FREE 100 MG/5 ML UDC PO PRN (16:21)
[2023-02-13] MEDS ORDERED: LORATADINE 10 MG TAB PO PRN (16:21)
[2023-02-13] MEDS ORDERED: bisacodyL 10 MG SUPP PR PRN (16:21)
[2023-02-13] MEDS ORDERED: methylPREDNISolone 40 MG in SYRINGE 0 ML IV SCH ×2 (16:30→17:00)
[2023-02-13] MEDS ORDERED: NON-FORMULARY MEDICATION (Dextromethorphan-Guaifenesin [Mucinex Dm] 60-1,200 mg Tablet Ext PO SCH (16:30)
[2023-02-13] MEDS ORDERED: LACTULOSE SYRUP 10 GM/15 ML BTL 960 ML PO PRN (16:40)
[2023-02-13] MEDS: ENOXAPARIN INJ 40 MG/0.4 ML SYR SQ SCH (17:19)
[2023-02-13] MEDS: MoRPHine SULFATE 10 MG/0.5 ML UDP PO PRN ×2 (17:31→21:25)
[2023-02-13] MEDS ORDERED: haloperidoL 0.5 MG TAB PO PRN (18:22)
[2023-02-13] MEDS: DOXYCYCLINE HYCLATE 100 MG in DEXTROSE 5% 100 ML IV SCH (18:30)
[2023-02-13] MEDS: AMPICILLIN/SULBACTAM SOD 3,000 MG in 0.9 % SODIUM CHLORIDE 100 ML IV SCH (18:31)
[2023-02-13 20:16] LABS: Appearance Urine Clear (Clear); Bilirubin Urine Negative (Negative); Blood Urine Negative (Negative); Color Urine Yellow; Glucose Urine UA Negative (Negative); Ketones Urine Negative (Negative); Leukocyte Esterase Urine Negative (Negative); Nitrite Urine Negative (Negative); Protein Urine Negative (Negative); Urobilinogen Urine Negative (Negative)
[2023-02-13] MEDS: ADVANCED PROBIOTIC 1250 MG CAPSULE PO SCH (20:49)
[2023-02-13] MEDS: cloNIDine HCL 0.1 MG TAB PO SCH (20:50)
[2023-02-13] MEDS: MONTELUKAST SODIUM 10 MG TABLET PO SCH (20:53)
[2023-02-13] MEDS: GABAPENTIN 100 MG CAP PO SCH (20:54)
[2023-02-13] MEDS: PANTOprazole 40 MG TAB PO SCH (20:55)
[2023-02-13] MEDS: busPIRone 15 MG TAB PO SCH (20:55)
[2023-02-13] MEDS: DOCUSATE SODIUM/SENNA 50/8.6MG TAB PO SCH (20:55)
[2023-02-13] MEDS: ACETAMINOPHEN 500 MG TAB PO SCH (20:56)
[2023-02-13] MEDS: METHADONE HCL 5 MG TAB PO SCH (21:11)
[2023-02-13] MEDS: ALBUT/IPRATROP 3MG/0.5MG NEB 3 ML VIAL NEB SCH (21:11)
[2023-02-14] MEDS: AMPICILLIN/SULBACTAM SOD 3,000 MG in 0.9 % SODIUM CHLORIDE 100 ML IV SCH ×4 (00:25→17:39)
[2023-02-14] MEDS: ALBUT/IPRATROP 3MG/0.5MG NEB 3 ML VIAL NEB SCH ×7 (01:25→23:17)
[2023-02-14] MEDS: methylPREDNISolone 40 MG in SYRINGE 0 ML IV SCH ×4 (01:42→23:29)
[2023-02-14 04:44] LABS: Hematocrit (blood only) 32.9 % (37.0-47.0); Hemoglobin 10.9 g/dl (12.0-16.0); Mean Corpuscular Hemoglobin 30.2 pg (25.0-34.0); Mean Corpuscular Hgb Conc 33.1 g/dL (32.0-36.0); Mean Corpuscular Volume 91.1 fL (80.0-100.0); Mean Platelet Volume 10.3 fL (9.4-12.4); Platelet Count 229 K/uL (130-400); RDW Coefficient of Variation 14.7 % (11.5-14.5); RDW Standard Deviation 49.2 fL (36.4-46.3); Red Blood Count 3.61 M/uL (4.20-5.40); White Blood Count 7.93 K/ul (4.8-10.8)
[2023-02-14] MEDS: MoRPHine SULFATE 10 MG/0.5 ML UDP PO PRN ×3 (05:00→22:35)
[2023-02-14 05:02] LABS: BUN Creatinine Ratio 17.7 (10-20); Calcium 9.6 mg/dl (8.6-10.3); Creatinine Clr Calc Pharmacy 57.9 ml/min; Est GFR (African American) 67.5 ml/min; Est GFR (Non-African American) 58.3 ml/min; Potassium 4.5 mmol/L (3.5-5.1)
[2023-02-14] MEDS: DOXYCYCLINE HYCLATE 100 MG in DEXTROSE 5% 100 ML IV SCH ×2 (06:26→18:09)
[2023-02-14] MEDS: LEVOTHYROXINE SODIUM 100 MCG TABLET PO SCH (06:41)
[2023-02-14] MEDS: cloNIDine HCL 0.1 MG TAB PO SCH ×2 (08:02→20:55)
[2023-02-14] MEDS: dilTIAZem HCL 180 MG CAPCR PO SCH (08:02)
[2023-02-14] MEDS: ADVANCED PROBIOTIC 1250 MG CAPSULE PO SCH (08:02)
[2023-02-14] MEDS: GABAPENTIN 100 MG CAP PO SCH ×2 (08:02→20:53)
[2023-02-14] MEDS: SERTRALINE HCL 100 MG TABLET PO SCH (08:02)
[2023-02-14] MEDS: DONEPEZIL HCL 5 MG TAB PO SCH (08:02)
[2023-02-14] MEDS: ACETAMINOPHEN 500 MG TAB PO SCH ×2 (08:03→20:52)
[2023-02-14] MEDS: FAMOTIDINE 20 MG TAB PO SCH (08:03)
[2023-02-14] MEDS: TAMSULOSIN HCL 0.4 MG CAP PO SCH (08:03)
[2023-02-14] MEDS: busPIRone 15 MG TAB PO SCH ×3 (08:03→20:52)
[2023-02-14] MEDS: ASPIRIN 81 MG ECTAB PO SCH (08:03)
[2023-02-14] MEDS: DOCUSATE SODIUM/SENNA 50/8.6MG TAB PO SCH ×2 (08:03→20:56)
[2023-02-14] MEDS: PANTOprazole 40 MG TAB PO SCH ×2 (08:03→20:53)
[2023-02-14] MEDS: FUROSEMIDE 20 MG TAB PO SCH (08:04)
[2023-02-14] MEDS: METHADONE HCL 5 MG TAB PO SCH ×3 (08:06→21:01)
[2023-02-14] MEDS: guaiFENesin 600 MG TABCR PO SCH ×2 (09:36→20:56)
[2023-02-14] MEDS: LACTULOSE SYRUP 10 GM/15 ML BTL 960 ML PO PRN (11:47)
[2023-02-14] MEDS ORDERED: levoFLOXacin/D5W 750 MG/150 ML BAG IV SCH (14:00)
[2023-02-14] MEDS: ENOXAPARIN INJ 40 MG/0.4 ML SYR SQ SCH (15:39)
[2023-02-14] MEDS: LORazepam 0.5 MG TAB PO PRN ×2 (15:41→22:35)
--- NOTE | 2023-02-14 17:40 | Hospitalist Progress Note ---
Date of Service February 14, 2023 Assessment & Plan (1) Acute on chronic respiratory failure with hypoxia: (2) Pneumonia: (3) COPD exacerbation: (4) ILD (interstitial lung disease): Plan: per admitting service notes with addendum: This is a 72-year-old female on home hospice with PMH of chronic hypoxic respiratory failure on 4 L NC 2/2 COPD, pulmonary fibrosis, anxiety, hypertension, dementia and other medical problems listed below who presents with confusion and found to have acute on chronic hypoxic respiratory failure, TOMMY PNA and COPD exacerbation. Home hospice with [facility] for extensive pulmonary disease - confirmed wishes with patient (A&Ox3 during discussion) that she wants treatment with IV abx, steroids and bipap if needed during admission Admitted with saturation of 95% on 6L NC (baseline 4L NC) ABG consistent with chronic respiratory acidosis, compensated Chest CTA with extensive emphysema and interstitial thickening. No evidence of pulmonary embolus. There is a new consolidative density in the left upper lobe which may represent a focus of pneumonia 02/14 Currently back to 4 L of nasal cannula which is her baseline Symptoms seems to be improving Sputum culture: Pending Change Unasyn to aztreonam day #1 for pseudomonal coverage Continue doxycycline day #2 Continue solu-medrol 40mg Q8H and QIDR duonebs for COPD exacerbation as well as home inh, Singulair Hypertonic saline nebs every 12h, Mucinex, spirometry, flutter valve, Liver lesions Likely metastatic Question left upper lobe pulmonary mass as primary? Discussed with patient at length Patient does not want to pursue further diagnosis at this point (5) Hypokalemia: Plan: Potassium 4.5 (6) HTN (hypertension): Plan: Continue clonidine BID, diltiazem As needed hydralazine (7) CKD (chronic kidney disease), stage III: Plan: Cr 1.05 at baseline. Continue to monitor with daily BMP (8) Hypothyroidism: Plan: Continue levothyroxine (9) Anxiety and depression: Plan: Continue Ativan QID PRN, buspirone TID, Zoloft per home meds (10) Mild cognitive impairment: Plan: Continue Aricept Extensive discussion with rn case manager hospice over the phone; medication reconciliation completed and will continue all hospice medications for now. DVT Ppx: SQ lovenox Code status: DNR/DNI per discussion with patient PCP: Zackery [facility] hospice providers Dispo: Pending Admission and Anticipated Discharge Date Admission Date: February 13, 2023 Subjective Follow-up for acute on chronic respiratory failure, pneumonia, etc. Seen sitting up in bed, comfortable, not distressed On 4 L of oxygen by nasal cannula Patient is in good spirits States that she feels somewhat improved compared to yesterday Breathing is improving Still having cough productive of yellow thick sputum Denies hemoptysis No chest pain Does report episodes of chills at home No any other symptom Review of Systems Review of Systems: all noted and negative except for above Physical Exam Physical Exam: General- oriented x 3, not in distress, speaks in sentences with no effort or accessory muscle use Head- atraumatic Eyes- PERRL, EOMI, anicteric ENT- oropharynx clear Neck- supple, no JVD, no adenopathy, no thyromegaly; carotids +2/2, no bruits appreciated Lungs-diminished breath sounds bilaterally, mild crackles on the left, faint wheeze Heart- normal rate, regular rhythm; no murmurs Abdomen- normal bowel sounds, nondistended, soft, nontender, no masses or hepatosplenomegaly Extremities- no pretibial edema, no calf tenderness; peripheral pulses intact Neuro- alert, oriented x 3; CN 2-12 grossly intact; motor 5/5 bilaterally;sensation 100% on all extremities; no other gross focal neurologic deficits Skin- warm & dry Results & Data Results & Data Vital Signs (Past 12 Hours) Vital Signs Temp Pulse Resp BP Pulse Ox Pulse Ox O2 Del Method 02/14/23 15:25 37.1 C 72 22 171/68 H 96 Nasal Cannula 02/14/23 15:13 75 18 94 Nasal Cannula 02/14/23 11:52 36.9 C 58 L 22 136/68 98 Nasal Cannula 02/14/23 11:35 65 18 99 Nasal Cannula 02/14/23 08:00 Nasal Cannula 02/14/23 08:00 92 02/14/23 07:43 36.5 C 55 L 18 144/74 H 98 Nasal Cannula 02/14/23 07:26 68 18 99 Nasal Cannula O2 Del Method O2 Flow Rate 02/14/23 15:25 5.0 02/14/23 15:13 5 02/14/23 11:52 7.0 02/14/23 11:35 7 02/14/23 08:00 5 02/14/23 08:00 Nasal Cannula 02/14/23 07:43 6.0 02/14/23 07:26 6 all noted and reviewed including below (6) HTN (hypertension) Hypertension type: unspecified Qualified Code(s): I10 - Essential (primary) hypertension
[2023-02-14] MEDS: MONTELUKAST SODIUM 10 MG TABLET PO SCH (20:55)
[2023-02-14] MEDS: AZTREONAM 2,000 MG in DEXTROSE 5% 100 ML IV SCH (23:32)
[2023-02-15 02:57] LABS: Hematocrit (blood only) 34.1 % (37.0-47.0); Mean Corpuscular Hemoglobin 29.9 pg (25.0-34.0); Mean Corpuscular Hgb Conc 32.3 g/dL (32.0-36.0); Mean Corpuscular Volume 92.7 fL (80.0-100.0); Mean Platelet Volume 10.3 fL (9.4-12.4); Platelet Count 244 K/uL (130-400); RDW Standard Deviation 50.6 fL (36.4-46.3); Red Blood Count 3.68 M/uL (4.20-5.40); White Blood Count 14.66 K/ul (4.8-10.8)
[2023-02-15 03:07] LABS: BUN Creatinine Ratio 19.6 (10-20); Calcium 9.9 mg/dl (8.6-10.3); Creatinine Clr Calc Pharmacy 57.3 ml/min; Est GFR (African American) 66.7 ml/min; Est GFR (Non-African American) 57.5 ml/min; Potassium 3.7 mmol/L (3.5-5.1)
[2023-02-15] MEDS: ALBUT/IPRATROP 3MG/0.5MG NEB 3 ML VIAL NEB SCH ×6 (03:45→23:53)
[2023-02-15] MEDS: DOXYCYCLINE HYCLATE 100 MG in DEXTROSE 5% 100 ML IV SCH ×2 (06:25→16:54)
[2023-02-15] MEDS: AZTREONAM 2,000 MG in DEXTROSE 5% 100 ML IV SCH ×3 (06:27→22:53)
[2023-02-15] MEDS: LEVOTHYROXINE SODIUM 100 MCG TABLET PO SCH (06:28)
[2023-02-15] MEDS: MoRPHine SULFATE 10 MG/0.5 ML UDP PO PRN ×3 (06:38→22:34)
[2023-02-15] MEDS: LACTULOSE SYRUP 10 GM/15 ML BTL 960 ML PO PRN (06:59)
[2023-02-15] MEDS: GABAPENTIN 100 MG CAP PO SCH ×2 (07:51→20:29)
[2023-02-15] MEDS: busPIRone 15 MG TAB PO SCH ×3 (07:51→20:31)
[2023-02-15] MEDS: ASPIRIN 81 MG ECTAB PO SCH (07:51)
[2023-02-15] MEDS: PANTOprazole 40 MG TAB PO SCH ×2 (07:52→20:31)
[2023-02-15] MEDS: guaiFENesin 600 MG TABCR PO SCH ×2 (07:52→20:32)
[2023-02-15] MEDS: FAMOTIDINE 20 MG TAB PO SCH (07:52)
[2023-02-15] MEDS: ADVANCED PROBIOTIC 1250 MG CAPSULE PO SCH (07:52)
[2023-02-15] MEDS: cloNIDine HCL 0.1 MG TAB PO SCH ×2 (07:52→19:28)
[2023-02-15] MEDS: TAMSULOSIN HCL 0.4 MG CAP PO SCH (07:52)
[2023-02-15] MEDS: DONEPEZIL HCL 5 MG TAB PO SCH (07:52)
[2023-02-15] MEDS: dilTIAZem HCL 180 MG CAPCR PO SCH (07:52)
[2023-02-15] MEDS: FUROSEMIDE 20 MG TAB PO SCH (07:52)
[2023-02-15] MEDS: methylPREDNISolone 40 MG in SYRINGE 0 ML IV SCH ×2 (07:53→19:10)
[2023-02-15] MEDS: ACETAMINOPHEN 500 MG TAB PO SCH ×2 (07:53→20:30)
[2023-02-15] MEDS: DOCUSATE SODIUM/SENNA 50/8.6MG TAB PO SCH ×2 (07:53→20:32)
[2023-02-15] MEDS: METHADONE HCL 5 MG TAB PO SCH ×3 (07:54→20:36)
[2023-02-15] MEDS: SERTRALINE HCL 100 MG TABLET PO SCH (09:34)
[2023-02-15] MEDS ORDERED: LACTULOSE SYRUP 30 GM/45 ML UDP PO STA (12:08)
[2023-02-15] MEDS: ENOXAPARIN INJ 40 MG/0.4 ML SYR SQ SCH (15:51)
--- NOTE | 2023-02-15 17:47 | Hospitalist Progress Note ---
Date of Service February 15, 2023 Assessment & Plan (1) Acute on chronic respiratory failure with hypoxia: (2) Pneumonia: (3) COPD exacerbation: (4) ILD (interstitial lung disease): Plan: per admitting service notes with addendum: This is a 72-year-old female on home hospice with PMH of chronic hypoxic respiratory failure on 4 L NC 2/2 COPD, pulmonary fibrosis, anxiety, hypertension, dementia and other medical problems listed below who presents with confusion and found to have acute on chronic hypoxic respiratory failure, TOMMY PNA and COPD exacerbation. Home hospice with [facility] for extensive pulmonary disease - confirmed wishes with patient (A&Ox3 during discussion) that she wants treatment with IV abx, steroids and bipap if needed during admission Chest CTA with extensive emphysema and interstitial thickening. No evidence of pulmonary embolus. There is a new consolidative density in the left upper lobe which may represent a focus of pneumonia Currently back to 4 L of nasal cannula which is her baseline Symptoms seems to be improving Sputum culture: Pending Changed Unasyn to aztreonam day #2 for pseudomonal coverage Continue doxycycline day #2 Taper Solu-Medrol to 40mg q12h today, anticipate transition to prednisone in 1 to 2 days Continue QIDR duonebs as well as home inh, Singulair Hypertonic saline nebs every 12h, Mucinex, spirometry, flutter valve, Liver lesions Likely metastatic Question left upper lobe pulmonary mass as primary? Discussed with patient at length Patient does not want to pursue further diagnosis at this point Constipation Lactulose ordered (5) Hypokalemia: Plan: Potassium 3.7 (6) HTN (hypertension): Plan: Continue clonidine BID, diltiazem As needed hydralazine (7) CKD (chronic kidney disease), stage III: Plan: Cr 1.05 at baseline (8) Hypothyroidism: Plan: Continue levothyroxine (9) Anxiety and depression: Plan: Continue Ativan QID PRN, buspirone TID, Zoloft per home meds (10) Mild cognitive impairment: Plan: Continue Aricept DVT Ppx: SQ lovenox Code status: DNR/DNI per discussion with patient PCP: Zackery [facility] hospice providers Dispo: Pending Anticipate discharge to home with home hospice services in 1 to 2 days Admission and Anticipated Discharge Date Admission Date: February 13, 2023 Subjective Follow-up for acute on chronic respiratory failure, etc. Seen resting in bed, comfortable, not in distress On 4 L of nasal cannula which is her baseline Having constipation Breathing is improving, denies cough No other new symptoms Review of Systems Review of Systems: all noted and negative except for above Physical Exam Physical Exam: General- oriented x 3, not in distress, speaks in sentences with no effort or accessory muscle use Eyes- anicteric Neck- no JVD Lungs-diminished breath sounds bilaterally, better air entry today than yesterday Faint wheeze bilaterally Heart- normal rate, regular rhythm; no murmurs Abdomen- normal bowel sounds, nondistended, soft, no tenderness Extremities- no pretibial edema, no calf tenderness Neuro- alert, oriented x 3; no gross focal neurologic deficits Skin- warm & dry Results & Data Results & Data Vital Signs (Past 12 Hours) Vital Signs Temp Pulse Resp BP Pulse Ox Pulse Ox O2 Del Method 02/15/23 16:00 36.8 C 64 16 90 Nasal Cannula 02/15/23 15:29 64 18 95 Nasal Cannula 02/15/23 11:57 36.7 C 62 16 138/71 96 Nasal Cannula 02/15/23 11:16 59 L 18 97 Nasal Cannula 02/15/23 08:00 Nasal Cannula 02/15/23 08:00 93 02/15/23 07:51 36.7 C 72 18 126/79 96 Nasal Cannula 02/15/23 07:09 79 18 96 Nasal Cannula O2 Del Method O2 Flow Rate O2 Flow Rate 02/15/23 16:00 4 02/15/23 15:29 4 02/15/23 11:57 4 02/15/23 11:16 4 02/15/23 08:00 5 02/15/23 08:00 Nasal Cannula 5 02/15/23 07:51 4 02/15/23 07:09 4 all noted and reviewed including below (6) HTN (hypertension) Hypertension type: unspecified Qualified Code(s): I10 - Essential (primary) hypertension
[2023-02-15] MEDS: MONTELUKAST SODIUM 10 MG TABLET PO SCH (20:32)
[2023-02-15] MEDS: LORazepam 0.5 MG TAB PO PRN (22:34)
[2023-02-16] MEDS: ALBUT/IPRATROP 3MG/0.5MG NEB 3 ML VIAL NEB SCH ×2 (03:40→07:45)
[2023-02-16] MEDS ORDERED: PROMETHAZINE HCL 6.25 MG in SODIUM CHLORIDE 0.9% 50 ML IV PRN (05:49)
[2023-02-16] MEDS ORDERED: LABETALOL HCL IV 5 MG/ML 20ML IV STA (05:59)
[2023-02-16] MEDS: MoRPHine SULFATE 10 MG/0.5 ML UDP PO PRN (06:25)
[2023-02-16] MEDS: LEVOTHYROXINE SODIUM 100 MCG TABLET PO SCH (06:26)
[2023-02-16] MEDS: methylPREDNISolone 40 MG in SYRINGE 0 ML IV SCH ×2 (06:27→16:58)
[2023-02-16] MEDS: LORazepam 0.5 MG TAB PO PRN ×2 (06:28→21:37)
[2023-02-16] MEDS: DOXYCYCLINE HYCLATE 100 MG in DEXTROSE 5% 100 ML IV SCH ×2 (06:29→16:57)
[2023-02-16] MEDS: AZTREONAM 2,000 MG in DEXTROSE 5% 100 ML IV SCH ×2 (06:35→14:38)
[2023-02-16] MEDS ORDERED: ACETAMINOPHEN 1,000 MG/100 ML VIAL IV STA (06:45)
[2023-02-16] MEDS: DOCUSATE SODIUM/SENNA 50/8.6MG TAB PO SCH ×2 (07:33→20:14)
[2023-02-16] MEDS: PANTOprazole 40 MG TAB PO SCH ×2 (07:34→20:14)
[2023-02-16] MEDS: SERTRALINE HCL 100 MG TABLET PO SCH (07:34)
[2023-02-16] MEDS: dilTIAZem HCL 180 MG CAPCR PO SCH (07:34)
[2023-02-16] MEDS: ACETAMINOPHEN 500 MG TAB PO SCH ×2 (07:35→20:13)
[2023-02-16] MEDS: DONEPEZIL HCL 5 MG TAB PO SCH (07:35)
[2023-02-16] MEDS: GABAPENTIN 100 MG CAP PO SCH ×2 (07:35→20:14)
[2023-02-16] MEDS: TAMSULOSIN HCL 0.4 MG CAP PO SCH (07:35)
[2023-02-16] MEDS: guaiFENesin 600 MG TABCR PO SCH ×2 (07:36→20:14)
[2023-02-16] MEDS: ADVANCED PROBIOTIC 1250 MG CAPSULE PO SCH (07:36)
[2023-02-16] MEDS: FUROSEMIDE 20 MG TAB PO SCH (07:36)
[2023-02-16] MEDS: FAMOTIDINE 20 MG TAB PO SCH (07:37)
[2023-02-16] MEDS: ASPIRIN 81 MG ECTAB PO SCH (07:37)
[2023-02-16] MEDS: busPIRone 15 MG TAB PO SCH ×3 (07:37→20:13)
[2023-02-16] MEDS: METHADONE HCL 5 MG TAB PO SCH ×3 (07:41→20:10)
[2023-02-16] MEDS: cloNIDine HCL 0.1 MG TAB PO SCH ×2 (07:42→19:41)
[2023-02-16] MEDS ORDERED: ALBUT/IPRATROP 3MG/0.5MG NEB 3 ML VIAL NEB PRN (08:37)
--- NOTE | 2023-02-16 13:48 | Hospitalist Progress Note ---
Date of Service February 16, 2023 Assessment & Plan (1) Acute on chronic respiratory failure with hypoxia: (2) Pneumonia: (3) COPD exacerbation: (4) ILD (interstitial lung disease): Plan: per previous provider notes with addendum: This is a 72-year-old female on home hospice with PMH of chronic hypoxic respiratory failure on 4 L NC 2/2 COPD, pulmonary fibrosis, anxiety, hypertension, dementia and other medical problems listed below who presents with confusion and found to have acute on chronic hypoxic respiratory failure, TOMMY PNA and COPD exacerbation. Home hospice with [facility] for extensive pulmonary disease - confirmed wishes with patient (A&Ox3 during discussion) that she wants treatment with IV abx, steroids and bipap if needed during admission Chest CTA with extensive emphysema and interstitial thickening. No evidence of pulmonary embolus. There is a new consolidative density in the left upper lobe which may represent a focus of pneumonia Currently back to 4 L of nasal cannula which is her baseline Symptoms seems to be improving Sputum culture: Pending Changed Unasyn to aztreonam for pseudomonal coverage -> switched to cefepime Continue doxycycline day #3 Cont. Solu-Medrol to 40mg q12h, anticipate transition to prednisone in 1 to 2 days Continue QIDR duonebs as well as home inh, Singulair Hypertonic saline nebs every 12h, Mucinex, spirometry, flutter valve, Liver lesions Likely metastatic Question left upper lobe pulmonary mass as primary? Discussed with patient at length Patient does not want to pursue further diagnosis at this point Constipation Lactulose ordered, pt had a BM (5) Hypokalemia: Plan: replace and monitor (6) HTN (hypertension): Plan: Continue clonidine BID, diltiazem As needed hydralazine (7) CKD (chronic kidney disease), stage III: Plan: Cr 1.05 at baseline (8) Hypothyroidism: Plan: Continue levothyroxine (9) Anxiety and depression: Plan: Continue Ativan QID PRN, buspirone TID, Zoloft per home meds (10) Mild cognitive impairment: Plan: Continue Aricept DVT Ppx: SQ lovenox Code status: DNR/DNI per discussion with patient PCP: Zackery [facility] hospice providers Dispo: Pending Anticipate discharge to home with home hospice services in 1 to 2 days Admission and Anticipated Discharge Date Admission Date: February 13, 2023 Subjective Follow-up for acute on chronic respiratory failure, etc. Seen resting in bed, comfortable, not in distress On 4 L of nasal cannula which is her baseline Breathing is improving No other new symptoms Pt's daughter at the bedside and updated Also discussed w/ pharmacy and switched to cefepime Review of Systems Review of Systems: All systems reviewed & are unremarkable except as noted in Subjective Physical Exam Physical Exam: General- oriented x 3, not in distress, speaks in sentences with no effort or accessory muscle use Eyes- anicteric Neck- no JVD Lungs-diminished breath sounds bilaterally, air entry improved Faint wheeze bilaterally Heart- normal rate, regular rhythm; no murmurs Abdomen- normal bowel sounds, nondistended, soft, no tenderness Extremities- no pretibial edema, no calf tenderness Neuro- alert, oriented x 3; no gross focal neurologic deficits Skin- warm & dry Results & Data Results & Data Vital Signs (Past 12 Hours) Vital Signs Temp Pulse Pulse Resp BP BP Pulse Ox 02/16/23 10:39 36.6 C 59 L 18 143/78 H 96 02/16/23 09:28 80 02/16/23 09:04 02/16/23 07:48 78 18 97 02/16/23 07:09 36.5 C 64 20 187/106 H 97 02/16/23 06:29 80 190/106 H 02/16/23 06:14 92 H 145/113 H 02/16/23 05:57 92 H 210/125 H 02/16/23 02:43 36.6 C 65 18 151/76 H 96 O2 Del Method O2 Flow Rate 02/16/23 10:39 Nasal Cannula 4 02/16/23 09:28 02/16/23 09:04 Nasal Cannula 4 02/16/23 07:48 Nasal Cannula 4 02/16/23 07:09 Nasal Cannula 6 02/16/23 06:29 02/16/23 06:14 02/16/23 05:57 02/16/23 02:43 Nasal Cannula Medications Administered Current Inpatient Medications Acetaminophen (Acetaminophen 325 Mg Tab) 650 mg PO Q4H PRN PRN Reason: Pain or Fever Stop: 03/15/23 16:02 Last Admin: 02/14/23 15:42 Dose: 650 mg Acetaminophen (Acetaminophen 500 Mg Tab) 500 mg PO BID [facility] Stop: 03/15/23 20:59 Last Admin: 02/16/23 07:35 Dose: 500 mg Albuterol (Albut/Ipratrop 3mg/0.5mg Neb 3 Ml Vial) 3 ml NEB QIDR PRN; Protocol PRN Reason: Shortness Of Breath Or Wheezing Stop: 03/18/23 10:59 Aspirin (Aspirin 81 Mg Ectab) 81 mg PO DAILY [facility] Stop: 03/16/23 08:59 Last Admin: 02/16/23 07:37 Dose: 81 mg Bisacodyl (Bisacodyl 10 Mg Supp) 5 mg TN DAILY PRN PRN Reason: Constipation Stop: 03/15/23 16:20 Buspirone HCl (Buspirone 15 Mg Tab) 15 mg PO TID [facility] Stop: 03/15/23 20:59 Last Admin: 02/16/23 07:37 Dose: 15 mg Clonidine HCl (Clonidine Hcl 0.1 Mg Tab) 0.2 mg PO BID@0800,2000 [facility] Stop: 03/18/23 06:49 Last Admin: 02/16/23 07:42 Dose: 0.2 mg Diltiazem HCl (Diltiazem Hcl 180 Mg Capcr) 180 mg PO QAM [facility] Stop: 03/16/23 08:59 Last Admin: 02/16/23 07:34 Dose: 180 mg Docusate Sodium (Docusate Sodium 100 Mg Cap) 100 mg PO BID PRN PRN Reason: Constipation Stop: 03/15/23 16:20 Donepezil HCl (Donepezil Hcl 5 Mg Tab) 5 mg PO QAM [facility] Stop: 03/16/23 08:59 Last Admin: 02/16/23 07:35 Dose: 5 mg Enoxaparin Sodium (Enoxaparin Inj 40 Mg/0.4 Ml Syr) 40 mg SQ Q24H [facility] Stop: 03/15/23 16:14 Last Admin: 02/15/23 15:51 Dose: 40 mg Famotidine (Famotidine 20 Mg Tab) 20 mg PO DAILY [facility] Stop: 03/16/23 08:59 Last Admin: 02/16/23 07:37 Dose: 20 mg Furosemide (Furosemide 20 Mg Tab) 20 mg PO DAILY [facility] Stop: 03/16/23 08:59 Last Admin: 02/16/23 07:36 Dose: 20 mg Gabapentin (Gabapentin 100 Mg Cap) 100 mg PO BID [facility] Stop: 03/15/23 20:59 Last Admin: 02/16/23 07:35 Dose: 100 mg Guaifenesin (Guaifenesin Sugar Free 100 Mg/5 Ml Udc) 200 mg PO Q4H PRN PRN Reason: Cough Stop: 03/15/23 16:20 Last Admin: 02/13/23 17:19 Dose: 200 mg Guaifenesin (Guaifenesin 600 Mg Tabcr) 1,200 mg PO Q12 [facility] Stop: 03/16/23 08:59 Last Admin: 02/16/23 07:36 Dose: 1,200 mg Haloperidol (Haloperidol 0.5 Mg Tab) 0.5 mg PO Q4H PRN PRN Reason: Agitation Stop: 03/15/23 18:21 Doxycycline Hyclate 100 mg/ (Dextrose) 110 mls @ 50 mls/hr IV Q12H [facility] Stop: 02/20/23 17:29 Last Infusion: 02/16/23 09:09 Dose: Infused Aztreonam 2,000 mg/ Dextrose 110 mls @ 100 mls/hr IV Q8H [facility]; Protocol Stop: 02/21/23 22:59 Last Infusion: 02/16/23 09:09 Dose: Infused Methylprednisolone 40 mg/ (Syringe) 0.64 mls @ 1.5 mls/min IV Q12H [facility] Stop: 03/17/23 17:59 Last Admin: 02/16/23 06:27 Dose: 1.5 mls/min Promethazine HCl 6.25 mg/ (Sodium Chloride) 50.25 mls @ 201 mls/hr IV Q6H PRN PRN Reason: Nausea And Vomiting Stop: 03/18/23 05:48 Last Infusion: 02/16/23 09:09 Dose: Infused Lactobacillus Acidophilus (Advanced Probiotic 1250 Mg Capsule) 2 cap PO DAILY [facility] Stop: 03/15/23 16:59 Last Admin: 02/16/23 07:36 Dose: 2 cap Lactulose (Lactulose Syrup 10 Gm/15 Ml Btl 960 Ml) 10 gm PO TID PRN PRN Reason: Constipation Stop: 03/15/23 16:39 Last Admin: 02/15/23 06:59 Dose: 10 gm Levothyroxine Sodium (Levothyroxine Sodium 100 Mcg Tablet) 100 mcg PO DAILYBB [facility] Stop: 03/16/23 06:29 Last Admin: 02/16/23 06:26 Dose: 100 mcg Loratadine (Loratadine 10 Mg Tab) 10 mg PO QAM PRN PRN Reason: Allergic Symptoms Stop: 03/15/23 16:20 Lorazepam (Lorazepam 0.5 Mg Tab) 0.5 mg PO QID PRN PRN Reason: Anxiety Stop: 03/15/23 16:20 Last Admin: 02/16/23 06:28 Dose: 0.5 mg Lorazepam (Lorazepam 0.5 Mg Tab) 0.5 mg PO HS PRN PRN Reason: insomnia Stop: 03/16/23 15:35 Last Admin: 02/15/23 22:34 Dose: 0.5 mg Methadone HCl (Methadone Hcl 5 Mg Tab) 5 mg PO TID [facility] Stop: 02/27/23 20:59 Last Admin: 02/16/23 07:41 Dose: 5 mg Montelukast Sodium (Montelukast Sodium 10 Mg Tablet) 10 mg PO HS [facility] Stop: 03/15/23 20:59 Last Admin: 02/15/23 20:32 Dose: 10 mg Morphine Sulfate (Morphine Sulfate 10 Mg/0.5 Ml Udp) 20 mg PO Q2H PRN PRN Reason: Pain Stop: 02/27/23 17:21 Last Admin: 02/16/23 06:25 Dose: 20 mg Pantoprazole Sodium (Pantoprazole 40 Mg Tab) 40 mg PO BID [facility] Stop: 03/15/23 20:59 Last Admin: 02/16/23 07:34 Dose: 40 mg Polyethylene Glycol (Polyethylene (Miralax) 17 Gm Pack) 17 gm PO DAILY PRN PRN Reason: Constipation Stop: 03/15/23 16:02 Last Admin: 02/15/23 15:50 Dose: 17 gm Polyethylene Glycol (Polyethylene (Miralax) 17 Gm Pack) 17 gm PO DAILY PRN PRN Reason: constipation Stop: 03/15/23 16:20 Senna/Docusate Sodium (Docusate Sodium/Senna 50/8.6mg Tab) 2 tab PO BID [facility] Stop: 03/15/23 20:59 Last Admin: 02/16/23 07:33 Dose: Not Given Sertraline HCl (Sertraline Hcl 100 Mg Tablet) 100 mg PO QAM [facility] Stop: 03/16/23 08:59 Last Admin: 02/16/23 07:34 Dose: 100 mg Tamsulosin HCl (Tamsulosin Hcl 0.4 Mg Cap) 0.4 mg PO DAILY [facility] Stop: 03/16/23 08:59 Last Admin: 02/16/23 07:35 Dose: 0.4 mg (6) HTN (hypertension) Hypertension type: unspecified Qualified Code(s): I10 - Essential (primary) hypertension
[2023-02-16] MEDS: ENOXAPARIN INJ 40 MG/0.4 ML SYR SQ SCH (16:58)
[2023-02-16] MEDS: MONTELUKAST SODIUM 10 MG TABLET PO SCH (20:14)
[2023-02-16] MEDS: CEFEPIME 2,000 MG in SYRINGE 0 ML IV SCH (21:33)
[2023-02-17] MEDS: MoRPHine SULFATE 10 MG/0.5 ML UDP PO PRN ×2 (03:28→09:29)
[2023-02-17] MEDS: methylPREDNISolone 40 MG in SYRINGE 0 ML IV SCH (05:54)
[2023-02-17] MEDS: LEVOTHYROXINE SODIUM 100 MCG TABLET PO SCH (05:54)
[2023-02-17] MEDS: DOXYCYCLINE HYCLATE 100 MG in DEXTROSE 5% 100 ML IV SCH (05:55)
[2023-02-17 06:23] LABS: Hematocrit (blood only) 33.3 % (37.0-47.0); Hemoglobin 10.8 g/dl (12.0-16.0); Mean Corpuscular Hemoglobin 29.7 pg (25.0-34.0); Mean Corpuscular Hgb Conc 32.4 g/dL (32.0-36.0); Mean Corpuscular Volume 91.5 fL (80.0-100.0); Mean Platelet Volume 10.3 fL (9.4-12.4); Platelet Count 215 K/uL (130-400); RDW Coefficient of Variation 14.8 % (11.5-14.5); Red Blood Count 3.64 M/uL (4.20-5.40)
[2023-02-17 07:08] LABS: BUN Creatinine Ratio 32.6 (10-20); Calcium 9.5 mg/dl (8.6-10.3); Creatinine Clr Calc Pharmacy 62.6 ml/min; Est GFR (African American) 77.1 ml/min; Est GFR (Non-African American) 66.6 ml/min; Magnesium 2.3 mg/dl (1.7-2.4); Phosphorus 3.9 mg/dl (2.5-4.9); Potassium 4.1 mmol/L (3.5-5.1)
[2023-02-17] MEDS: DOCUSATE SODIUM/SENNA 50/8.6MG TAB PO SCH (08:42)
[2023-02-17] MEDS: METHADONE HCL 5 MG TAB PO SCH ×2 (08:44→13:40)
[2023-02-17] MEDS: GABAPENTIN 100 MG CAP PO SCH (08:44)
[2023-02-17] MEDS: dilTIAZem HCL 180 MG CAPCR PO SCH (08:45)
[2023-02-17] MEDS: PANTOprazole 40 MG TAB PO SCH (08:45)
[2023-02-17] MEDS: FUROSEMIDE 20 MG TAB PO SCH (08:45)
[2023-02-17] MEDS: guaiFENesin 600 MG TABCR PO SCH (08:45)
[2023-02-17] MEDS: DONEPEZIL HCL 5 MG TAB PO SCH (08:46)
[2023-02-17] MEDS: ADVANCED PROBIOTIC 1250 MG CAPSULE PO SCH (08:46)
[2023-02-17] MEDS: SERTRALINE HCL 100 MG TABLET PO SCH (08:46)
[2023-02-17] MEDS: TAMSULOSIN HCL 0.4 MG CAP PO SCH (08:46)
[2023-02-17] MEDS: cloNIDine HCL 0.1 MG TAB PO SCH (08:47)
[2023-02-17] MEDS: ASPIRIN 81 MG ECTAB PO SCH (08:47)
[2023-02-17] MEDS: FAMOTIDINE 20 MG TAB PO SCH (08:47)
[2023-02-17] MEDS: busPIRone 15 MG TAB PO SCH ×2 (08:48→14:34)
[2023-02-17] MEDS: ACETAMINOPHEN 500 MG TAB PO SCH (08:49)
[2023-02-17] MEDS: CEFEPIME 2,000 MG in SYRINGE 0 ML IV SCH (09:29)
[2023-02-17] MEDS ORDERED: LIDOCAINE 5% 1 PATCH TD STA (13:47)
--- NOTE | 2023-02-17 15:28 | Discharge Summary ---
Date of Service February 17, 2023 Admission HPI Per Admitting Provider This is a 72-year-old female on home hospice with PMH of chronic hypoxic respiratory failure on 4 L NC 2/2 COPD, pulmonary fibrosis, anxiety, hypertension, dementia and other medical problems listed below who presents with confusion. Patient lives alone and receives home hospice help and nursing 5 days a week. Power went out in her apartment complex and therefore was not able to utilize her oxygen. Was looking for her portable set, but could not find it and began to feel confused and nauseated and was brought into ED for further evaluation. Patient admits she has been feeling poorly over the past 3 weeks w ith malaise, progressive shortness of breath and productive thick, green sputum. Also endorses some nausea, poor appetite and intermittent dry heaving, most recently this morning. Patient does not follow with a pulmonary provider but receives most of her medical care through the hospice physician as well as Dr. Vizcarra. Is not certain of her medications as there have been multiple changes recently, but states she manages them herself. Took morphine this morning but denies taking any of her other normal home meds. Feeling better on increased oxygen in ED although still feels groggy and somewhat confused. Denies any fever, chills, chest pain, vomiting, abdominal pain, dysuria, diarrhea or constipation. Discussed with [facility] triage nurse extensively. They will send in a nurse to evaluate patient tomorrow. Went over medication list. Admission Exam Per Admitting Provider General Appearance:WD/WN, vitals as above, NAD, sitting up in bed, pleasant Head: normocephalic, atraumatic Eyes:normal inspection, PERRL, conjunctivae normal, anicteric sclerae ENT: external ear and nose normal, oropharynx normal Neck: normal visual inspection, trachea midline, no thyromegaly Respiratory:increased respiratory effort, decreased breath sounds, scattered wheezing throughout. No accessory muscle use Cardiovascular: regular rate, rhythm, no murmur, normal peripheral pulses, no BLE edema. Vessels: no JVD Chest: normal inspection of chest Abdomen/GI: normal bowel sounds, soft, nontender, no hepatosplenomegaly Extremities/Musculoskeletal: no cyanosis or clubbing, extremities motor strength 5/5 Neurologic: PERRL, EOMI, accommodation nl, no face palsy, no dysarthria, CN's II-XI intact bilaterally and moves all extremities Psychiatric:A+Ox3, euthymic affect Skin: no rashes, normal color, warm/dry Principal Diagnosis Acute on chronic respiratory failure with hypoxia Pneumonia Discharge Exam General- oriented x 3, not in distress, speaks in sentences with no effort or accessory muscle use Eyes- anicteric Neck- no JVD Lungs-diminished breath sounds bilaterally, air entry improved Faint wheeze bilaterally Heart- normal rate, regular rhythm; no murmurs Abdomen- normal bowel sounds, nondistended, soft, no tenderness Extremities- no pretibial edema, no calf tenderness Neuro- alert, oriented x 3; no gross focal neurologic deficits Skin- warm & dry Discharge Data Allergies Allergy/AdvReac Type Severity Reaction Status Date / Time baclofen Allergy Severe Unknown Verified 02/16/23 10:35 cefuroxime Allergy Severe Hives and Verified 08/22/22 07:33 Dizziness hydralazine Allergy Intermediate joint pain Verified 08/22/22 07:33 tetracycline Allergy Mild RASH Verified 08/22/22 07:33 budesonide AdvReac Severe caused her Verified 08/22/22 07:33 to cough constantly amlodipine AdvReac Mild Edema. Verified 08/22/22 07:33 Consultations 02/13/23 13:14 ED Decision to Admit Stat Ordered Studies 02/13/23 09:44 CT Abd and Pelvis [CT abd pelvis IV con only] Stat FINDINGS: Lower chest: No acute abnormality. Liver: Numerous hypodensities are seen within the liver measuring up to 61 mm in diameter. These were not seen on the prior exam. Gallbladder and biliary tree: No calcified gallstones. Normal caliber wall. No intra- or extrahepatic biliary ductal dilation. Pancreas: Fatty replacement of the pancreas is seen. Spleen: Unremarkable. Adrenals: Unremarkable. Kidneys and ureters: Nonobstructive nephrolithiasis is seen. Bladder: Unremarkable. Reproductive organs: Unremarkable. Bowel: Diverticulosis is seen without evidence of diverticulitis. A small hiatal hernia is seen. Lymph nodes Retroperitoneal: Unremarkable. Pelvic: Unremarkable. Mesenteric: Unremarkable. Peritoneum: Normal. Vessels: Atherosclerotic calcifications are seen. Abdominal wall: Bilateral fat-containing inguinal hernias are seen. Fat- containing umbilical hernia is seen. Bones: Degenerative changes in the visualized spine. IMPRESSION: Interval development of multiple hypodensities in the liver. Findings are new from prior exam and are concerning for metastatic disease of unknown primary, hepatic abscess is possible considered less likely.. ACT 112: Positive. There are findings on this exam that require communication between the performing entity and the patient following Patient Test Result Information Act ([place] Act 112) guidelines. CT thoracic spine w con Stat FINDINGS: Lungs and pleura: There is a 41 x 20 mm density in the left anterior lung which is new from prior exam. Extensive emphysema and interstitial thickening are seen. Heart and pericardium: Cardiomegaly is seen with biatrial enlargement. Vessels: No evidence of pulmonary embolism. Mediastinum and thuy: Multiple lymph nodes measure up to 8 mm. Chest wall and lower neck: Unremarkable. Abdomen: For findings below the diaphragm, please refer to CT of the abdomen dated the same. Bones: Degenerative changes in the thoracic spine. IMPRESSION: Extensive emphysema and interstitial thickening. No evidence of pulmonary embo brennon. There is a new consolidative density in the left upper lobe which may represent a focus of pneumonia. Follow-up to resolution is recommended. 02/13/23 09:46 CT angio chest PE protocol Stat FINDINGS: Lungs and pleura: There is a 41 x 20 mm density in the left anterior lung which is new from prior exam. Extensive emphysema and interstitial thickening are seen. Heart and pericardium: Cardiomegaly is seen with biatrial enlargement. Vessels: No evidence of pulmonary embolism. Mediastinum and thuy: Multiple lymph nodes measure up to 8 mm. Chest wall and lower neck: Unremarkable. Abdomen: For findings below the diaphragm, please refer to CT of the abdomen dated the same. Bones: Degenerative changes in the thoracic spine. IMPRESSION: Extensive emphysema and interstitial thickening. No evidence of pulmonary embolus. There is a new consolidative density in the left upper lobe which may represent a focus of pneumonia. Follow-up to resolution is recommended. Hospital Course (1) Acute on chronic respiratory failure with hypoxia: (2) Pneumonia: (3) COPD exacerbation: (4) ILD (interstitial lung disease): This is a 72-year-old female on home hospice with PMH of chronic hypoxic respiratory failure on 4 L NC 2/2 COPD, pulmonary fibrosis, anxiety, hypertension, dementia and other medical problems listed below who presents with confusion and found to have acute on chronic hypoxic respiratory failure, TOMMY PNA and COPD exacerbation. Home hospice with [facility] for extensive pulmonary disease - confirmed wishes with patient (A&Ox3 during discussion) that she wants treatment with IV abx, steroids and bipap if needed during admission Chest CTA with extensive emphysema and interstitial thickening. No evidence of pulmonary embolus. There is a new consolidative density in the left upper lobe which may represent a focus of pneumonia Currently back to 4 L of nasal cannula which is her baseline Symptoms seems to be improving Sputum culture: ordered but not collected Changed Unasyn to aztreonam for pseudomonal coverage -> switched to cefepime Continue doxycycline Cont. Solu-Medrol to 40mg q12h, transition to prednisone on DC Continue QIDR duonebs as well as home inh, Singulair Hypertonic saline nebs every 12h, Mucinex, spirometry, flutter valve 02/17 pt wishes to be discharged home. Continues to have cough but feels improved and feels that she would rather be home at this point. Pt's daughter present at the bedside. They both report that pt has a good support system as well as hospice agency. Will discharge on Po antibiotics. Pt to follow up w/ PCP and hospice staff. Liver lesions Likely metastatic Question left upper lobe pulmonary mass as primary? Discussed with patient at length Patient does not want to pursue further diagnosis at this point Constipation Lactulose ordered, pt had a BM (5) Hypokalemia: replace and monitor (6) HTN (hypertension): Continue clonidine BID, diltiazem As needed hydralazine (7) CKD (chronic kidney disease), stage III: Cr 1.05 at baseline (8) Hypothyroidism: Continue levothyroxine (9) Anxiety and depression: Continue Ativan QID PRN, buspirone TID, Zoloft per home meds (10) Mild cognitive impairment: Continue Aricept Code status: DNR/DNI per discussion with patient PCP: Dr. Vizcarra, [facility] hospice providers Dispo: discharge to home with home hospice services Total Time Total Time Spent Total Time Spent (In Minutes): 40 Discharge Plan Discharge Items Patient Disposition: Hospice - Home Reason For Visit: ACUTE ON CHRONIC RESP FAILURE, PNA, COPD EXAC Discharge Diagnosis: Acute on chronic respiratory failure with hypoxia Pneumonia Activity: Per Instructions section Non-emergency contact: Primary Care Provider and Specialist Call non-emergency contact if: you have any medication questions and your symptoms worsen Follow-up/Referrals: Cristina Vizcarra MD [Primary Care Provider] - (Date & Time 02/23/2023 11:00 AM Provider Cristina Vizcarra MD Department General Internal Medicine [facility] ) Diet: Heart Healthy Diet Texture: Easy to Chew Addtl Attending Provider Instructions: Follow up with your primary care doctor and hospice staff. Finish antibiotic treatment as prescribed. Take prednisone 40 mg for 1 day, then take 20 mg the next day. Then, continue taking 10 mg daily as usual. Recommend taking mucinex for at least next 5 days. You can use lidocaine patch in addition to your other pain medications. Often, you can find this over the counter under the name Salonpas. Pending Studies at Discharge: No Stand-Alone Forms: My [facility] Medications and DC Order Prescriptions: New amoxicillin-pot clavulanate 875-125 mg tablet 1 tab PO BID 4 Days Qty: 8 0RF doxycycline hyclate 100 mg tablet 100 mg PO BID 4 Days Qty: 8 0RF prednisone 20 mg tablet 20 mg PO UD Qty: 3 0RF Rx Instructions: Take 2 tabs for 1 day, then take 1 tab the next day, then continue your regular home dose Continued (DME) CPAP Machine Misc See Rx Instructions .ROUTE .MEDSUPPLY Qty: 1 0RF Rx Instructions: Auto CPAP 5-12 H20, tubing, supplies heated humification. Modem w/ AHI and compliance. ELO: 99yr sertraline [Zoloft] 100 mg tablet 100 mg PO QAM Qty: 30 3RF (DME) Portable Oxygen Misc See Rx Instructions .MEDSUPPLY Qty: 1 0RF Rx Instructions: Oxygen 2 liters continuous with portable concentrator. STEPHANI 99 clonidine HCl 0.1 mg tablet 0.2 mg PO BID@0800,2000 ipratropium-albuterol 0.5 mg-3 mg(2.5 mg base)/3 mL solution for nebulization 3 ml INH Q8H PRN (Reason: shortness of breath or wheezing) Qty: 270 3RF diltiazem HCl [Cartia XT] 180 mg Capsule,Extended Release 24hr 180 mg PO QAM montelukast 10 mg tablet 10 mg PO HS furosemide [Lasix] 20 mg tablet 20 mg PO DAILY levothyroxine 100 mcg Tablet 100 mcg PO QAM loratadine [Claritin] 10 mg Tablet 10 mg PO QAM PRN (Reason: Allergic Symptoms) donepezil [Aricept] 5 mg tablet 5 mg PO QAM Rx Instructions: Take 1 tab by mouth daily. Take with largest meal of the day. pantoprazole [Protonix] 40 mg tablet,delayed release (DR/EC) 40 mg PO BID 30 Days Qty: 60 0RF famotidine 20 mg Tablet 20 mg PO BID methadone 5 mg Tablet 5 mg PO TID lactulose 10 gram/15 mL Solution 10 g PO TID PRN (Reason: Constipation) clonidine HCl 0.1 mg Tablet 0.1 mg PO BID PRN (Reason: elevated bp) prednisone 10 mg Tablet 40 mg PO DAILY Rx Instructions: has been on 40mg/daily from 02/09-02/13 then will resume 10mg daily dose azithromycin 250 mg Tablet 250 mg PO MOWEFR@0900 sennosides-docusate sodium [Senna-S] 8.6-50 mg Tablet 2 tab-cap PO BID acetaminophen 500 mg Tablet 500 mg PO BID guaifenesin [Robitussin] 100 mg/5 mL Liquid 200 mg PO Q4H PRN (Reason: Cough) famotidine [Pepcid] 20 mg Tablet 20 mg PO DAILY lorazepam [Ativan] 0.5 mg Tablet 0.5 mg PO QID PRN (Reason: Anxiety) tamsulosin 0.4 mg Capsule 0.4 mg PO DAILY morphine 100 mg/5 mL Concentrate 20 mg PO Q2H PRN (Reason: Pain) bisacodyl [Dulcolax (bisacodyl)] 10 mg Suppository 5 mg ID DAILY PRN (Reason: Constipation) dextromethorphan-guaifenesin [Mucinex DM] 60-1,200 mg Tablet Extended Release 12 Hr 1 tab PO Q12H haloperidol lactate [Haldol] 2 mg/mL Concentrate 0.5 mg PO Q4H PRN (Reason: Agitation) ondansetron 4 mg Film 4 mg PO Q6H PRN (Reason: Nausea) aspirin 81 mg Capsule 81 mg PO DAILY promethazine-DM 6.25-15 mg/5 mL Syrup 5 ml PO QID PRN (Reason: Cough) buspirone 15 mg tablet 15 mg PO TID gabapentin 100 mg capsule 100 mg PO BID polyethylene glycol 3350 [Miralax] 17 gram Powder In Packet 17 g PO DAILY PRN (Reason: constipation) Qty: 30 0RF docusate sodium 100 mg capsule 100 mg PO BID PRN (Reason: Constipation) Lactinex 1 million cell tablet,chewable 1 tab PO BID Qty: 30 0RF Discharge Orders: Discharge Order (Routine); Ordered 02/17/23 Ordered By: Martin Abbasi Admission Data Admit Date/Time: 02/13/23 14:15 Attending Provider: Martin Abbasi Admit Provider: Lottie Murry Primary Care Provider: Cristina Vizcarra Other Providers: Lottie Murry ; [facility],Home Healthcare ; Brian Cobian
[2023-02-17] MEDS ORDERED: CEFEPIME 2,000 MG in SYRINGE 0 ML IV SCH (18:00)
== END 2023-02-17 17:04 | disposition hospice, home (50) | DRG 193 ==
LOC: ED 09:31 → 4W 14:15 → SUATTDRO 14:15 → 4W 16:22

== ENCOUNTER 2023-02-21 07:14 | Inpatient (IN) ==
--- NOTE | 2023-02-21 07:25 | Emergency Department Note ---
History of Present Illness General Chief complaint: Fall Time Seen by Provider: 02/21/23 07:19 History of Present Illness 72-year-old female with past medical history significant for COPD on 4 L nasal cannula at baseline, interstitial lung disease, hypertension, hyperlipidemia, dementia, hypothyroidism, BERNA, CKD, on hospice who presents to the emergency department via EMS for evaluation s/p fall. Patient relatively poor historian and continues to fall asleep at the bedside. EMS reports patient was cyanotic upon presentation and unsure if her home O2 was working properly. Patient reports that she was standing at her kitchen table and thinks she might of fell asleep causing her to fall. She states she hit her forehead on her oxygen tank. There is no loss of consciousness. She is not on any blood thinners. She does note feeling mildly dizzy prior to the fall. Denies headaches, visual changes, extremity weakness/numbness/tingling. She reports low back pain which has been present for the last few weeks and is unchanged since fall. She is also mildly short of breath but states she always is and is no worse. She sustained abrasions to bilateral knees, bruising to bilateral elbows, forehead and lower abdomen. She denies fever/chills, nausea/vomiting, diarrhea/constipation, chest pain, abdominal pain, extremity pain,urinary symptoms. Patient recently admitted to this hospital 02/13-02/17 for acute on chronic respiratory failure secondary to pneumonia. Patient discharged home on Augmentin and doxycycline as well as steroids and continues to take as prescribed. Home Medications Medication Instructions Recorded Confirmed Type loratadine 10 mg tablet (Claritin) 10 mg PO QAM PRN Allergic Symptoms 07/29/19 02/21/23 History CPAP Machine #1 ea 08/06/19 02/13/23 Rx diltiazem HCl 180 mg 180 mg PO QAM 08/12/19 02/21/23 History capsule,extended release 24 hr (Cartia XT) sertraline 100 mg tablet (Zoloft) 100 mg PO QAM #30 tabs 10/15/19 02/21/23 Rx montelukast 10 mg tablet 10 mg PO HS 12/06/19 02/21/23 History furosemide 20 mg tablet (Lasix) 20 mg PO DAILY 12/07/19 02/21/23 History levothyroxine 100 mcg tablet 100 mcg PO QAM 01/23/20 02/21/23 History Portable Oxygen #1 ea 04/04/20 02/13/23 Rx clonidine HCl 0.1 mg tablet 0.2 mg PO BID@0800,199905/13/20 02/21/23 History buspirone 15 mg tablet 15 mg PO TID 01/16/21 02/21/23 History gabapentin 100 mg capsule 100 mg PO BID 01/16/21 02/21/23 History polyethylene glycol 3350 17 gram 17 g PO DAILY PRN constipation #30 01/19/21 02/21/23 Rx oral powder packet (Miralax) ea donepezil 5 mg tablet (Aricept) 5 mg PO QAM 01/20/21 02/21/23 History ipratropium 0.5 mg-albuterol 3 mg 3 ml inhalation Q8H PRN shortness 03/17/21 02/21/23 Rx (2.5 mg base)/3 mL nebulization of breath or wheezing #270 mL soln docusate sodium 100 mg capsule 100 mg PO BID PRN Constipation 04/16/21 02/21/23 History Lactobacillus acidoph-L.bulgaricus 1 tab PO BID #30 tabs 04/19/21 02/21/23 Rx 1 million cell chewable tablet (Lactinex) pantoprazole 40 mg tablet,delayed 40 mg PO BID 30 days #60 tabs 08/26/22 02/21/23 Rx release (Protonix) acetaminophen 500 mg tablet 500 mg PO BID 02/13/23 02/21/23 History aspirin 81 mg capsule 81 mg PO DAILY 02/13/23 02/21/23 History azithromycin 250 mg tablet 250 mg PO MOWEFR@0900 02/13/23 02/21/23 History bisacodyl 10 mg rectal suppository 5 mg RI DAILY PRN Constipation 02/13/23 02/21/23 History (Dulcolax (bisacodyl)) clonidine HCl 0.1 mg tablet 0.1 mg PO BID PRN elevated bp 02/13/23 02/21/23 History dextromethorphan-guaifenesin ER 60 1 tab PO Q12H 02/13/23 02/21/23 History mg-1,200 mg tab,extend release,12hr (Mucinex DM) famotidine 20 mg tablet 20 mg PO BID 02/13/23 02/21/23 History guaifenesin 100 mg/5 mL oral liquid 200 mg PO Q4H PRN Cough 02/13/23 02/21/23 History haloperidol lactate 2 mg/mL oral 0.5 mg PO Q4H PRN Agitation 02/13/23 02/21/23 History concentrate lactulose 10 gram/15 mL oral 10 g PO TID PRN Constipation 02/13/23 02/21/23 History solution lorazepam 0.5 mg tablet (Ativan) 0.5 mg PO QID PRN Anxiety 02/13/23 02/21/23 History methadone 5 mg tablet 5 mg PO TID 02/13/23 02/21/23 History morphine 100 mg/5 mL oral 20 mg PO Q2H PRN Pain 02/13/23 02/21/23 History concentrate ondansetron 4 mg oral soluble film 4 mg PO Q6H PRN Nausea 02/13/23 02/21/23 History prednisone 10 mg tablet 10 mg PO DAILY 02/13/23 02/13/23 History promethazine-DM 6.25 mg-15 mg/5 mL 5 ml PO QID PRN Cough 02/13/23 02/21/23 H istory oral syrup sennosides 8.6 mg-docusate sodium 2 tab-cap PO BID 02/13/23 02/21/23 History 50 mg tablet (Senna-S) tamsulosin 0.4 mg capsule 0.4 mg PO DAILY 02/13/23 02/21/23 History Allergies Allergy/AdvReac Type Severity Reaction Status Date / Time baclofen Allergy Severe Unknown Verified 02/18/23 07:30 cefuroxime Allergy Severe Hives and Verified 02/18/23 07:30 Dizziness hydralazine Allergy Intermediate joint pain Verified 08/22/22 07:33 tetracycline Allergy Mild RASH Verified 02/18/23 07:30 budesonide AdvReac Severe caused her Verified 08/22/22 07:33 to cough constantly amlodipine AdvReac Mild Edema. Verified 08/22/22 07:33 Past Med/Surg History Medical History Anxiety and depression Chronic back pain CKD (chronic kidney disease), stage III stage 3. follows with pcp. Degenerative disc disease GERD (gastroesophageal reflux disease) History of breast cancer bilateral HTN (hypertension) Hx of duodenal ulcer Hyperlipidemia Hypothyroidism ILD (interstitial lung disease) Mild cognitive impairment On home oxygen therapy 2lpm via n/c continuous BERNA (obstructive sleep apnea) intolerant to cpap Osteoarthritis Pulmonary fibrosis Restless legs syndrome hx SCC (squamous cell carcinoma) face Surgical History History of bilateral tubal ligation History of bronchoscopy History of cardiac cath no stents. (~1979) History of colonoscopy History of esophagogastroduodenoscopy (EGD) History of lung surgery thorascopy for lung biopsy S/P mastectomy, bilateral lymph node removal Left arm S/P thyroidectomy partial (r/t nodule) Family History Sister Myocardial infarction Sister Stroke Other No family history of adverse response to anesthesia Social History Smoking Status: Former smoker Tobacco Type: Cigarettes Cigarettes Per Day: 50 pack yr hx; Second Hand Exposure: No; Do You Dip or Chew Tobacco: No; Hx Alcohol Use: No Hx Substance Use: No Preferred Language: Tamazight Communication Ability: Effective Laundry Manager Required: No Beliefs That Will Affect Care: None marital status: Current Living Situation: Alone Current Living Situation Comment: [facility] apartment building How many Children do You have: 2 Feels Safe at Home: Yes Assistive Devices: Oxygen - Continuous and Walker Physical Exam Vital Signs Vital Signs - 24 hr 02/21/23 07:21 02/21/23 07:40 02/21/23 08:24 Temperature 37.1 C Temperature Source Oral Pulse Rate 80 Pulse Rate [Apical] 76 66 Pulse Rhythm [Apical] Regular Pulse Strength [Apical] Normal Respiratory Rate 18 18 14 Respiratory Effort / Characteristics Non-Labored Non-Labored Non-Labored Respiratory Depth Normal Normal Normal Respiratory Pattern Regular Regular Regular Blood Pressure 155/76 H Blood Pressure [Right Arm] 120/59 L 125/67 Blood Pressure Mean 102 Blood Pressure Mean [Right Arm] 79 86 Pulse Oximetry 99 99 99 Oxygen Delivery Method Room Air Nasal Cannula Nasal Cannula Oxygen Flow Rate 4 4 Sepsis Recent Fever Within 48 Hours No Sepsis New/Unexplained Change in Mental Status No Sepsis Action Taken by Nursing No Action Required 02/21/23 07:31 02/21/23 09:32 02/21/23 11:09 Temperature Temperature Source Pulse Rate 78 Pulse Rate [Apical] 75 67 Pulse Rhythm [Apical] Regular Regular Pulse Strength [Apical] Normal Normal Respiratory Rate 12 16 Respiratory Effort / Characteristics Non-Labored Non-Labored Respiratory Depth Normal Normal Respiratory Pattern Regular Blood Pressure Blood Pressure [Right Arm] 160/77 H 122/65 Blood Pressure Mean Blood Pressure Mean [Right Arm] 104 84 Pulse Oximetry 99 99 Oxygen Delivery Method Nasal Cannula Nasal Cannula Oxygen Flow Rate 4 4 Sepsis Recent Fever Within 48 Hours Sepsis New/Unexplained Change in Mental Status Sepsis Action Taken by Nursing 02/21/23 11:33 Temperature Temperature Source Pulse Rate 71 Pulse Rate [Apical] Pulse Rhythm [Apical] Pulse Strength [Apical] Respiratory Rate Respiratory Effort / Characteristics Respiratory Depth Respiratory Pattern Blood Pressure Blood Pressure [Right Arm] Blood Pressure Mean Blood Pressure Mean [Right Arm] Pulse Oximetry Oxygen Delivery Method Oxygen Flow Rate Sepsis Recent Fever Within 48 Hours Sepsis New/Unexplained Change in Mental Status Sepsis Action Taken by Nursing Constitutional: alert and oriented x3. no acute distress. on 4L NC. Falling asleep during conversation, easily arousable. HEENT: normocephalic, atraumatic. left subconjunctival hemorrhage. R conjunctiva normal. No hyphema.PERRLA. EOM's grossly intact. TMs pearly adams without effusion. Pharynx pink without exudate. Tonsils nonenlarged. Mucus membranes moist Neck: neck is supple, nontender. midline C-spine nontender Respiratory: lungs are clear to auscultation without wheezes, rhonchi, or rales bilaterally. equal chest rise. normal respiratory effort, no accessory muscle use. on 4L NC Cardiovascular: normal heart sounds without murmur. regular rate and rhythm. GI: abdomen is soft, distended. Nontender. Ecchymosis bilateral lower quadrants. No palpable masses. No rebound tenderness or guarding. No CVA tenderness MSK: superficial abrasions to bilateral anterior knees. No active bleeding. moves all 4 extremities spontaneously. Nontender, ROM intact. Strength +4 and equal throughout all 4 extremities Peripheral vascular: extremities warm and well perfused with palpable pulses. Neuro: without focal neuro deficits. answers questions appropriately, follows commands. CNII-XII intact. Speech clear, tongue midline, without facial droop. Strength equal throughout all for extremities. Psych:appropriate mood and affect. Course Administered Medications Discontinued Medications Sodium Chloride (Nss) 500 mls @ 999 mls/hr IV .Q31M ONE Stop: 02/21/23 08:26 Last Infusion: 02/21/23 09:31 Dose: 0 mls/hr Documented By: Admin: 02/21/23 08:13 Dose: 999 mls/hr Documented By: MILLICENT Acetaminophen (Ofirmev) 1,000 mg in 100 mls @ 400 mls/hr IV NOW STA Stop: 02/21/23 08:58 Last Infusion: 02/21/23 09:52 Dose: 0 mls/hr Documented By: Admin: 02/21/23 09:31 Dose: 400 mls/hr Documented By: MILLICENT Medical Decision Making Differential Diagnosis Fracture, dislocation, contusion, intra-abdominal, pneumothorax, intrathoracic, intracranial, neurologic, compartment syndrome, rhabdomyolysis, as well as other pathologies. Laboratory Data Attestation: I reviewed the patient's lab results. 02/21/23 07:34 02/21/23 07:34 Lab Results 02/21/23 02/21/23 02/21/23 Range/Units 07:34 07:34 08:21 WBC 13.47 H (4.8-10.8) K/ul RBC 4.07 L (4.20-5.40) M/uL Hgb 12.0 (12.0-16.0) g/dl Hct 37.3 (37.0-47.0) % MCV 91.6 (80.0-100.0) fL MCH 29.5 (25.0-34.0) pg MCHC 32.2 (32.0-36.0) g/dL RDW Std Deviation 49.1 H (36.4-46.3) fL RDW Coeff of Karel 14.6 H (11.5-14.5) % Plt Count 177 (130-400) K/uL MPV 10.4 (9.4-12.4) fL Immature Gran % (Auto) 1.6 % Neut % (Auto) 83.9 % Lymph % (Auto) 5.9 % [place] % (Auto) 8.1 % Eos % (Auto) 0.4 % Baso % (Auto) 0.1 % Neut # (Auto) 11.31 H (1.40-6.50) K/uL Lymph # (Auto) 0.80 L (1.2-3.4) K/uL [place] # (Auto) 1.09 H (0.11-0.59) K/uL Eos # (Auto) 0.05 (0-0.50) K/uL Baso # (Auto) 0.01 (0-0.2) K/uL Immature Gran # (Auto) 0.21 H (0.01-0.20) K/uL VBG pH (7.36-7.41) VBG pCO2 (38-50) mmHg VBG pO2 mmHg VBG HCO3 mmol/L VBG O2 Saturation % VBG Base Excess mEq/L Sodium 135 L (136-145) mmol/L Potassium 4.0 (3.5-5.1) mmol/L Chloride 97 L (98-107) mmol/L Carbon Dioxide 33 H (21-32) mmol/L Anion Gap 5 (3-11) BUN 25 H (6-23) mg/dl Creatinine 0.80 (0.6-1.2) mg/dl Est Cr Clr Drug Dosing Not Reportable Est GFR ( Amer) 84.2 ml/min Est GFR (Non-Af Amer) 72.6 ml/min BUN/Creatinine Ratio 31.3 H (10-20) Glucose 110 H (70-99(Fasting)) mg/dl Lactate 1.1 (0.4-2.0) mmol/L Calcium 9.4 (8.6-10.3) mg/dl Total Bilirubin 1.0 (0.2-1.0) mg/dl AST 44 H (13-39) U/L ALT 30 (7-52) U/L Alkaline Phosphatase 69 (34-104) U/L Troponin I High Sens 36.3 H (0-14) pg/ml Total Protein 6.0 (6.0-8.3) gm/dl Albumin 3.7 (3.4-5.0) gm/dl Globulin 2.3 L (2.5-4.0) gm/dl Albumin/Globulin Ratio 1.6 (0.9-2) Lipase 13 (11-82) U/L Procalcitonin (0-0.5) ng/ml 02/21/23 02/21/23 Range/Units 08:21 08:21 WBC (4.8-10.8) K/ul RBC (4.20-5.40) M/uL Hgb (12.0-16.0) g/dl Hct (37.0-47.0) % MCV (80.0-100.0) fL MCH (25.0-34.0) pg MCHC (32.0-36.0) g/dL RDW Std Deviation (36.4-46.3) fL RDW Coeff of Karel (11.5-14.5) % Plt Count (130-400) K/uL MPV (9.4-12.4) fL Immature Gran % (Auto) % Neut % (Auto) % Lymph % (Auto) % [place] % (Auto) % Eos % (Auto) % Baso % (Auto) % Neut # (Auto) (1.40-6.50) K/uL Lymph # (Auto) (1.2-3.4) K/uL [place] # (Auto) (0.11-0.59) K/uL Eos # (Auto) (0-0.50) K/uL Baso # (Auto) (0-0.2) K/uL Immature Gran # (Auto) (0.01-0.20) K/uL VBG pH 7.39 (7.36-7.41) VBG pCO2 56 H (38-50) mmHg VBG pO2 57 mmHg VBG HCO3 34 mmol/L VBG O2 Saturation 87.4 % VBG Base Excess 7.4 mEq/L Sodium (136-145) mmol/L Potassium (3.5-5.1) mmol/L Chloride (98-107) mmol/L Carbon Dioxide (21-32) mmol/L Anion Gap (3-11) BUN (6-23) mg/dl Creatinine (0.6-1.2) mg/dl Est Cr Clr Drug Dosing Est GFR ( Amer) ml/min Est GFR (Non-Af Amer) ml/min BUN/Creatinine Ratio (10-20) Glucose (70-99(Fasting)) mg/dl Lactate (0.4-2.0) mmol/L Calcium (8.6-10.3) mg/dl Total Bilirubin (0.2-1.0) mg/dl AST (13-39) U/L ALT (7-52) U/L Alkaline Phosphatase (34-104) U/L Troponin I High Sens (0-14) pg/ml Total Protein (6.0-8.3) gm/dl Albumin (3.4-5.0) gm/dl Globulin (2.5-4.0) gm/dl Albumin/Globulin Ratio (0.9-2) Lipase (11-82) U/L Procalcitonin 0.12 (0-0.5) ng/ml Imaging Data My Impression: CXR per my interpretation without new focal consolidation, pleural effusion, pneumothorax. Left upper lobe facility opacity re demonstrated when compared to CXR/chest CTA 02/13/2023 Radiologist's Impression: Cervical Spine CT 02/21/23 07:34 CT cervical spine wo con CLINICAL HISTORY: 72 years-old Female with fall. Acute neck pain status post fall COMPARISON: Head CT of same day, CT neck 08/23/2022 TECHNIQUE: Multiple axial CT images of the cervical spine were obtained without contrast. A dose lowering technique was utilized adhering to the principles of ALARA. FINDINGS: Multilevel changes. No acute fracture or subluxation. Grade 1 anterolisthesis C4 on C5 is likely secondary to chronic facet arthrosis. Calcified plaque of the carotid bulbs. The cervical soft tissues appear unremarkable. No pneumothorax. Emphysema with chronic fibrotic changes of the lung apices. IMPRESSION: No acute cervical spine fracture or subluxation. ACT 112: Negative or not required by law. The above report was generated using voice recognition software. It may contain grammatical, syntax or spelling errors. Electronically signed by: Derrek Olivares M.D. 02/21/2023 9:04 AM Chest X-Ray 02/21/23 07:34 XR chest 1V portable HISTORY: 72 years-old Female fall acute chest trauma status post fall COMPARISON: CTA chest 02/13/2023 TECHNIQUE: AP view of the chest FINDINGS: Cardiac silhouette is enlarged. Chronic interstitial coarsening. There is no pneumothorax, pleural effusion or overt pulmonary edema. Emphysema with chronic fibrosis. Irregular subpleural lesion within the left upper lobe measuring 4.5 cm. Degenerative changes of the shoulders and spine. IMPRESSION: 1. Emphysema with chronic fibrotic changes. 2. Suspicious irregular subpleural consolidative opacity of the left upper lobe measuring 4.5 cm again noted. Continued follow-up recommended. ACT 112: Negative or not required by law. The above report was generated using voice recognition software. It may contain grammatical, syntax or spelling errors. Electronically signed by: Derrek Olivares M.D. 02/21/2023 8:[address] 02/21/23 07:34 CT head/brain wo con CLINICAL HISTORY: 72 years-old Female with fall. Acute head trauma status post fall TECHNIQUE: Multiple axial CT images of the head were obtained without contrast. A dose lowering technique was utilized adhering to the principles of ALARA. COMPARISON: 08/23/2022 FINDINGS: No acute intracranial hemorrhage, midline shift, intracranial mass, hydrocephalus, territorial ischemia or abnormal extra-axial collection. Mildly motion degraded exam. The calvarium is intact. Prior bilateral lens repair. Small anterior frontal scalp contusions. The paranasal sinuses, mastoid air cells, and middle ear cavities are clear. IMPRESSION: 1. No acute intracranial abnormality or calvarial fracture. 2. Small anterior frontal scalp contusions. ACT 112: Negative or not required by law. The above report was generated using voice recognition software. It may contain grammatical, syntax or spelling errors. Electronically signed by: Derrek Olivares M.D. 02/21/2023 8:59 AM Abdomen/Pelvis CT 02/21/23 07:36 CT abd pelvis IV con only, CT lumbar spine w con CLINICAL HISTORY: fall, abd pain TECHNIQUE: Helical axial images of the abdomen and pelvis were obtained and displayed. Automated dose lowering techniques and/or adjustment according to patient size were utilized for this exam. Dedicated images of the lumbar spine were obtained. This exam was performed with intravenous contrast. CT DOSE: 2656.29 mGy.cm COMPARISON: Comparison is made to CT abdomen pelvis 02/13/2023 FINDINGS: Lower chest: Interstitial thickening is seen. Liver: Numerous hepatic hypodensities are seen. Gallbladder and biliary tree: No calcified gallstones. Normal caliber wall. No intra- or extrahepatic biliary ductal dilation. Pancreas: Fatty replacement of the pancreas is seen. Spleen: Unremarkable. Adrenals: Unremarkable. Kidneys and ureters: Nonobstructive nephrolithiasis is seen. Bladder: Unremarkable. Reproductive organs: Unremarkable. Bowel: A hiatal hernia is seen. Diverticulosis is seen without evidence of diverticulitis. Lymph nodes Retroperitoneal: Unremarkable. Pelvic: Unremarkable. Mesenteric: Unremarkable. Peritoneum: Normal. Vessels: Atherosclerotic calcifications are seen. Abdominal wall: Bilateral fat-containing inguinal hernias are seen. Diastases of the abdominal wall is seen. There is a fat-containing umbilical hernia. A small amount of fat stranding is seen in the anterior abdominal wall. Bones: Degenerative changes in the visualized spine. There is a compression deformity of T11 which has increased from the prior exam without significant retropulsion. IMPRESSION: 1. Acute compression fracture of T11. There is body wall contusion in the anterior soft tissues. Otherwise no acute abnormalities are seen. No evidence of intraperitoneal hemorrhage. 2. Redemonstration multiple hypodensities in the liver concerning for malignancy, follow-up MRI liver mass protocol is recommended. ACT 112: Negative or not required by law. Electronically signed by: Anthony Lewis M.D. 02/21/2023 9:[address] 02/21/23 07:50 CT abd pelvis IV con only, CT lumbar spine w con CLINICAL HISTORY: fall, abd pain TECHNIQUE: Helical axial images of the abdomen and pelvis were obtained and displayed. Automated dose lowering techniques and/or adjustment according to patient size were utilized for this exam. Dedicated images of the lumbar spine were obtained. This exam was performed with intravenous contrast. CT DOSE: 2656.29 mGy.cm COMPARISON: Comparison is made to CT abdomen pelvis 02/13/2023 FINDINGS: Lower chest: Interstitial thickening is seen. Liver: Numerous hepatic hypodensities are seen. Gallbladder and biliary tree: No calcified gallstones. Normal caliber wall. No intra- or extrahepatic biliary ductal dilation. Pancreas: Fatty replacement of the pancreas is seen. Spleen: Unremarkable. Adrenals: Unremarkable. Kidneys and ureters: Nonobstructive nephrolithiasis is seen. Bladder: Unremarkable. Reproductive organs: Unremarkable. Bowel: A hiatal hernia is seen. Diverticulosis is seen without evidence of diverticulitis. Lymph nodes Retroperitoneal: Unremarkable. Pelvic: Unremarkable. Mesenteric: Unremarkable. Peritoneum: Normal. Vessels: Atherosclerotic calcifications are seen. Abdominal wall: Bilateral fat-containing inguinal hernias are seen. Diastases of the abdominal wall is seen. There is a fat-containing umbilical hernia. A small amount of fat stranding is seen in the anterior abdominal wall. Bones: Degenerative changes in the visualized spine. There is a compression deformity of T11 which has increased from the prior exam without significant retropulsion. IMPRESSION: 1. Acute compression fracture of T11. There is body wall contusion in the anterior soft tissues. Otherwise no acute abnormalities are seen. No evidence of intraperitoneal hemorrhage. 2. Redemonstration multiple hypodensities in the liver concerning for malignancy, follow-up MRI liver mass protocol is recommended. ACT 112: Negative or not required by law. Electronically signed by: Anthony Lewis M.D. 02/21/2023 9:28 AM MDM Narrative 72-year-old female with past medical history as above presents to the emergency department via EMS s/p fall. Review of pertinent visits and past medical history performed. Vital signs in ED stable, afebrile. No acute respiratory distress, on 4L NC (baseline). Mechanism of fall not entirely clear, mechanical vs syncopal episode. Patient is poor historian and continues to fall asleep at bedside. EMS reports patient was cyanotic upon presentation and unsure if her home O2 was working properly. IV access was established and labs were obtained. CBC demonstrates leukocytosis at 13.4 with left shift. No acute anemia. CMP without significant electrolyte abnormalities. Renal function within normal limits. LFTs and lipase unremarkable. Lactate 1.1. Pro-Syed 0.12. VBG performed and demonstrates pH 7.39 pCO2 56mmHg, HCO3 34. High sensitivity troponin mildly elevated 36.3. EKG demonstrates normal sinus rhythm at rate of 79 bpm without evidence of ischemic changes. CXR redemonstrates left upper lobe consolidative opacity no new focal consolidation, pleural effusion or pneumothorax. CT head/neck/abdomen and pelvis/lumbar spine as well as lumbar spine performed given presentation. Head, neck, abd/pelvis CT unremarkable. Lumbar spine CT demonstrates T11 compression fracture worse when compared to previous studies. Chronic liver hypodensities, follow up MRI recommended. . On exam, patient is nontoxic-appearing in no acute distress. Vital signs stable. She was placed on java lead architect and at time of my interpretation demonstrates normal sinus rhythm at 86 bpm. She is on 4 L nasal cannula in no acute respiratory distress. She is neurologically intact without focal deficits. GCS 15. Patient does repeatedly fall asleep at bedside but is easily arousable. She is alert and oriented x3. She has contusion to forehead as well as superficial abrasions to bilateral knees and ecchymosis to bilateral elbows and lower abdomen. Lungs CTA. Abdomen is benign. She is mildly tender in the midline lumbar spine. Extremities neurovascularly intact with good range of motion. She was medicated with 500 mL normal saline as well as IV Tylenol for her pain. Patient reevaluated on multiple occasions. She remained stable with no new concerns. She was updated on all exam findings and test results. Given today's presentation, fall vs syncopal episode as well as feel she is unable to adequately care for herself at home at this time, I do feel admission to hospital for further management and likely intermediate placement is warranted. Patient was agreeable to admission. Case was discussed with hospitalist PA, Rosalee Payne, who graciously accepted patient to their service for further management. She was admitted in stable condition. Impression & Plan Fall, Physical deconditioning, Thoracic compression fracture, Syncope Discharge Plan Visit Data Chief Complaint: Fall ED Provider: Pol[facility] ED Midlevel Provider: Stephanie Donohue Discharge Problem: Fall, Physical deconditioning, Thoracic compression fracture, Syncope Patient Disposition: Admitted As Inpatient Forms Stand Alone Forms: [facility] Prescriptions Prescriptions: No Action (DME) CPAP Machine Misc See Rx Instructions .ROUTE .MEDSUPPLY Qty: 1 0RF Rx Instructions: Auto CPAP 5-12 H20, tubing, supplies heated humification. [place] w/ AHI and compliance. ELO: 99yr sertraline [Zoloft] 100 mg tablet 100 mg PO QAM Qty: 30 3RF (DME) Portable Oxygen Misc See Rx Instructions .MEDSUPPLY Qty: 1 0RF Rx Instructions: Oxygen 2 liters continuous with portable concentrator. STEPHANI 99 clonidine HCl 0.1 mg tablet 0.2 mg PO BID@0800,2000 ipratropium-albuterol 0.5 mg-3 mg(2.5 mg base)/3 mL solution for nebulization 3 ml INH Q8H PRN (Reason: shortness of breath or wheezing) Qty: 270 3RF diltiazem HCl [Cartia XT] 180 mg Capsule,Extended Release 24hr 180 mg PO QAM montelukast 10 mg tablet 10 mg PO HS furosemide [Lasix] 20 mg tablet 20 mg PO DAILY levothyroxine 100 mcg Tablet 100 mcg PO QAM loratadine [Claritin] 10 mg Tablet 10 mg PO QAM PRN (Reason: Allergic Symptoms) donepezil [Aricept] 5 mg tablet 5 mg PO QAM Rx Instructions: Take 1 tab by mouth daily. Take with largest meal of the day. pantoprazole [Protonix] 40 mg tablet,delayed release (DR/EC) 40 mg PO BID 30 Days Qty: 60 0RF famotidine 20 mg Tablet 20 mg PO BID methadone 5 mg Tablet 5 mg PO TID lactulose 10 gram/15 mL Solution 10 g PO TID PRN (Reason: Constipation) clonidine HCl 0.1 mg Tablet 0.1 mg PO BID PRN (Reason: elevated bp) prednisone 10 mg Tablet 10 mg PO DAILY azithromycin 250 mg Tablet 250 mg PO MOWEFR@0900 sennosides-docusate sodium [Senna-S] 8.6-50 mg Tablet 2 tab-cap PO BID acetaminophen 500 mg Tablet 500 mg PO BID guaifenesin 100 mg/5 mL Liquid 200 mg PO Q4H PRN (Reason: Cough) lorazepam [Ativan] 0.5 mg Tablet 0.5 mg PO QID PRN (Reason: Anxiety) tamsulosin 0.4 mg Capsule 0.4 mg PO DAILY morphine 100 mg/5 mL Concentrate 20 mg PO Q2H PRN (Reason: Pain) bisacodyl [Dulcolax (bisacodyl)] 10 mg Suppository 5 mg RI DAILY PRN (Reason: Constipation) dextromethorphan-guaifenesin [Mucinex DM] 60-1,200 mg Tablet Extended Release 12 Hr 1 tab PO Q12H haloperidol lactate 2 mg/mL Concentrate 0.5 mg PO Q4H PRN (Reason: Agitation) ondansetron 4 mg Film 4 mg PO Q6H PRN (Reason: Nausea) aspirin 81 mg Capsule 81 mg PO DAILY promethazine-DM 6.25-15 mg/5 mL Syrup 5 ml PO QID PRN (Reason: Cough) buspirone 15 mg tablet 15 mg PO TID gabapentin 100 mg capsule 100 mg PO BID polyethylene glycol 3350 [Miralax] 17 gram Powder In Packet 17 g PO DAILY PRN (Reason: constipation) Qty: 30 0RF docusate sodium 100 mg capsule 100 mg PO BID PRN (Reason: Constipation) Lactinex 1 million cell tablet,chewable 1 tab PO BID Qty: 30 0RF Referrals Referrals: Cristina Vizcarra MD [Primary Care Provider] -
[2023-02-21] MEDS ORDERED: SODIUM CHLORIDE 0.9% 500 ML IV ONE (07:56)
[2023-02-21 07:58] LABS: Basophils # (auto) 0.01 K/uL (0-0.2); Basophils % (auto) 0.1 %; Eosinophils # (auto) 0.05 K/uL (0-0.50); Eosinophils % (auto) 0.4 %; Hematocrit (blood only) 37.3 % (37.0-47.0); Immature Granulocytes # (auto) 0.21 K/uL (0.01-0.20); Immature Granulocytes % (auto) 1.6 %; Lymphocytes % (auto) 5.9 %; Mean Corpuscular Hemoglobin 29.5 pg (25.0-34.0); Mean Corpuscular Hgb Conc 32.2 g/dL (32.0-36.0); Mean Corpuscular Volume 91.6 fL (80.0-100.0); Mean Platelet Volume 10.4 fL (9.4-12.4); Monocytes # (auto) 1.09 K/uL (0.11-0.59); Monocytes % (auto) 8.1 %; Neutrophils # (auto) 11.31 K/uL (1.40-6.50); Neutrophils % (auto) 83.9 %; Platelet Count 177 K/uL (130-400); RDW Coefficient of Variation 14.6 % (11.5-14.5); RDW Standard Deviation 49.1 fL (36.4-46.3); Red Blood Count 4.07 M/uL (4.20-5.40); White Blood Count 13.47 K/ul (4.8-10.8)
[2023-02-21 08:15] LABS: Alanine Aminotransferase 30 U/L (7-52); Albumin Globulin Ratio 1.6 (0.9-2); Albumin Level 3.7 gm/dl (3.4-5.0); Alkaline Phosphatase 69 U/L (34-104); Anion Gap 5 (3-11); Aspartate Aminotransferase 44 U/L (13-39); BUN Creatinine Ratio 31.3 (10-20); Blood Urea Nitrogen 25 mg/dl (6-23); Calcium 9.4 mg/dl (8.6-10.3); Carbon Dioxide 33 mmol/L (21-32); Chloride 97 mmol/L (98-107); Est GFR (African American) 84.2 ml/min; Est GFR (Non-African American) 72.6 ml/min; Globulin 2.3 gm/dl (2.5-4.0); Glucose 110 mg/dl (70-99(Fasting)); Lipase 13 U/L (11-82); Sodium 135 mmol/L (136-145)
--- NOTE | 2023-02-21 08:18 | XRay Report ---
XR chest 1V portable HISTORY: 72 years-old Female fall acute chest trauma status post fall COMPARISON: CTA chest 02/13/2023 TECHNIQUE: AP view of the chest FINDINGS: Cardiac silhouette is enlarged. Chronic interstitial coarsening. There is no pneumothorax, pleural ef fusion or overt pulmonary edema. Emphysema with chronic fibrosis. Irregular subpleural lesion within the left upper lobe measuring 4.5 cm. Degenerative changes of the shoulders and spine. IMPRESSION: 1. Emphysema with chronic fibrotic changes. 2. Suspicious irregular subpleural consolidative opacity of the left upper lobe measuring 4.5 cm agai n noted. Continued follow-up recommended. ACT 112: Negative or not required by law. The above report was generated using voice recognition software. It may contain grammatical, syntax o r spelling errors. Electronically signed by: Derrek Olivares M.D. 02/21/2023 8:17 AM
[2023-02-21 08:23] LABS: Troponin I High Sensitivity 36.3 pg/ml (0-14)
[2023-02-21 08:33] LABS: Base Excess VBG 7.4 mEq/L; HCO3 VBG 34 mmol/L; Oxygen Saturation VBG 87.4 %; PCO2 VBG 56 mmHg (38-50); PO2 VBG 57 mmHg; pH VBG 7.39 (7.36-7.41)
[2023-02-21] MEDS ORDERED: ACETAMINOPHEN 1,000 MG/100 ML VIAL IV STA (08:44)
--- NOTE | 2023-02-21 09:01 | CT Scan Report ---
CT head/brain wo con CLINICAL HISTORY: 72 years-old Female with fall. Acute head trauma status post fall TECHNIQUE: Multiple axial CT images of the head were obtained without contrast. A dose lowering tech nique was utilized adhering to the principles of ALARA. COMPARISON: 08/23/2022 FINDINGS: No acute intracranial hemorrhage, midline shift, intracranial mass, hydrocephalus, territorial ischem ia or abnormal extra-axial collection. Mildly motion degraded exam. The calvarium is intact. Prior bilateral lens repair. Small anterior frontal scalp contusions. The pa ranasal sinuses, mastoid air cells, and middle ear cavities are clear. IMPRESSION: 1. No acute intracranial abnormality or calvarial fracture. 2. Small anterior frontal scalp contusions. ACT 112: Negative or not required by law. The above report was generated using voice recognition software. It may contain grammatical, syntax o r spelling errors. Electronically signed by: Derrek Olivares M.D. 02/21/2023 8:59 AM
--- NOTE | 2023-02-21 09:06 | CT Scan Report ---
CT cervical spine wo con CLINICAL HISTORY: 72 years-old Female with fall. Acute neck pain status post fall COMPARISON: Head CT of same day, CT neck 08/23/2022 TECHNIQUE: Multiple axial CT images of the cervical spine were obtained without contrast. A dose low ering technique was utilized adhering to the principles of ALARA. FINDINGS: Multilevel changes. No acute fracture or subluxation. Grade 1 anterolisthesis C4 on C5 is l ikely secondary to chronic facet arthrosis. Calcified plaque of the carotid bulbs. The cervical soft tissues appear unremarkable. No pneumothorax. Emphysema with chronic fibrotic changes of the lung ap ices. IMPRESSION: No acute cervical spine fracture or subluxation. ACT 112: Negative or not required by law. The above report was generated using voice recognition software. It may contain grammatical, syntax o r spelling errors. Electronically signed by: Derrek Olivares M.D. 02/21/2023 9:04 AM
--- NOTE | 2023-02-21 09:30 | CT Scan Report ---
CT abd pelvis IV con only, CT lumbar spine w con CLINICAL HISTORY: fall, abd pain TECHNIQUE: Helical axial images of the abdomen and pelvis were obtained and displayed. Automated dose lowering techniques and/or adjustment according to patient size were utilized for this exam. Dedicat ed images of the lumbar spine were obtained. This exam was performed with intravenous contrast. CT DOSE: 2656.29 mGy.cm COMPARISON: Comparison is made to CT abdomen pelvis 02/13/2023 FINDINGS: Lower chest: Interstitial thickening is seen. Liver: Numerous hepatic hypodensities are seen. Gallbladder and biliary tree: No calcified gallstones. Normal caliber wall. No intra- or extrahepatic biliary ductal dilation. Pancreas: Fatty replacement of the pancreas is seen. Spleen: Unremarkable. Adrenals: Unremarkable. Kidneys and ureters: Nonobstructive nephrolithiasis is seen. Bladder: Unremarkable. Reproductive organs: Unremarkable. Bowel: A hiatal hernia is seen. Diverticulosis is seen without evidence of diverticulitis. Lymph nodes Retroperitoneal: Unremarkable. Pelvic: Unremarkable. Mesenteric: Unremarkable. Peritoneum: Normal. Vessels: Atherosclerotic calcifications are seen. Abdominal wall: Bilateral fat-containing inguinal hernias are seen. Diastases of the abdominal wall i s seen. There is a fat-containing umbilical hernia. A small amount of fat stranding is seen in the an terior abdominal wall. Bones: Degenerative changes in the visualized spine. There is a compression deformity of T11 which ruiz s increased from the prior exam without significant retropulsion. IMPRESSION: 1. Acute compression fracture of T11. There is body wall contusion in the anterior soft tissues. Oth erwise no acute abnormalities are seen. No evidence of intraperitoneal hemorrhage. 2. Redemonstration multiple hypodensities in the liver concerning for malignancy, follow-up MRI live r mass protocol is recommended. ACT 112: Negative or not required by law. Electronically signed by: Anthony Lewis M.D. 02/21/2023 9:28 AM
--- NOTE | 2023-02-21 11:15 | History & Physical Report ---
Date of Service February 21, 2023 Assessment & Plan (1) Fall: Plan: This is a 72 y/o female with a history of chronic hypoxic respiratory failure on 4L O2 via NC due to COPD, pulmonary fibrosis/ILD, HTN, mild cognitive impairment, CKD3, chronic back pain, anxiety and depression, hypothyroidism, BERNA intolerant of CPAP, and GERD, recently admitted for pneumonia and discharged on 02/17, who presented to the ED today via EMS after a fall at home. Outpatient PCP notes reviewed. Pt is on home hospice for end-stage COPD and probable underlying malignancy. Spoke with pt's hospice music therapy, Adeline ([phone]) to help determine goals of care. She notes that patient has been increasingly weak and having difficulty managing at home. Pt does have intermittent help from the office of aging but apparently not consistent. After her fall with recent hospital discharge, hospice team thinks that pt likely needs a higher level of care and would benefit from assisted living or SNF placement. Pt has been resistant to this previously but when I discussed it with her today, she was agreeable to consider her options. - Admit to med surg - Pain management consult - Continue outpatient methadone/morphine for now, add lidocaine patch - Fall precautions - Will need case management assistance to determine optimal placement at discharge - CBC, BMP in AM (leukocytosis likely related to recent pneumonia, steroid use but will trend) (2) Physical deconditioning: (3) Thoracic compression fracture: (4) Emphysema with chronic bronchitis: (5) Chronic respiratory failure: (6) CKD (chronic kidney disease), stage III: (7) Hypothyroidism: (8) HTN (hypertension): (9) Anxiety and depression: Plan Continue other home medications as appropriate. Pt seen and reviewed with collaborating physician, Dr. Cueto. Plan of care discussed and as outlined above. Code Status: DNR/DNI DVT Prophylaxis: Lovejeevan Payne PA-C History of Present Illness Chief Complaint: Fall, back pain Primary Care Provider: Cristina Vizcarra MD This is a 72 y/o female with a history of chronic hypoxic respiratory failure on 4L O2 via NC due to COPD, pulmonary fibrosis/ILD, HTN, mild cognitive impairment, CKD3, chronic back pain, anxiety and depression, hypothyroidism, BERNA intolerant of CPAP, and GERD who presented to the ED today via EMS after a fall at home. History from the patient is somewhat limited due to drowsiness and underlying cognitive impairment but pt is arousable and attempts to answer questions. Pt was recently admitted to this facility 02/13-02/17/23 due to acute on chronic respiratory failure from TOMMY pneumonia. Treated initially with IV methylprednisolone and IV antibiotics with improvement so transitioned to oral and discharged home. Pt has been on home hospice, even before last admission, and requested to go back home at discharge. Care was coordinated with her outpatient hospice team through [facility]. Since being home, pt reports she has been doing "okay" until this morning when she was standing at the sink, lost her balance, and fell. She reports landing face forward. She denies syncopal event or LOC. She notes ongoing fatigue and weakness. Appetite is fair. She reports limited ability to make her own meals at home so she has been eating what she can find, not always a full meal. In the ED, work-up revealed an acute T11 compression fracture. Pt has chronic back pain for which she is on methadone and morphine but pain has been somewhat difficult to manage recently. Meds being titrated by hospice. Current pain is not different from pain prior to the fall. Her breathing is at baseline - using baseline 4L of oxygen. Cough continues to gradually improve. Allergies Allergy/AdvReac Type Severity Reaction Status Date / Time baclofen Allergy Severe Unknown Verified 02/18/23 07:30 cefuroxime Allergy Severe Hives and Verified 02/18/23 07:30 Dizziness hydralazine Allergy Intermediate joint pain Verified 08/22/22 07:33 tetracycline Allergy Mild RASH Verified 02/18/23 07:30 budesonide AdvReac Severe caused her Verified 08/22/22 07:33 to cough constantly amlodipine AdvReac Mild Edema. Verified 08/22/22 07:33 Home Medications Medication Instructions Recorded Confirmed Type loratadine 10 mg tablet (Claritin) 10 mg PO QAM PRN Allergic Symptoms 07/29/19 02/21/23 History CPAP Machine #1 ea 08/06/19 02/21/23 Rx diltiazem HCl 180 mg 180 mg PO QAM 08/12/19 02/21/23 History capsule,extended release 24 hr (Cartia XT) sertraline 100 mg tablet (Zoloft) 100 mg PO QAM #30 tabs 10/15/19 02/21/23 Rx montelukast 10 mg tablet 10 mg PO HS 12/06/19 02/21/23 History furosemide 20 mg tablet (Lasix) 20 mg PO DAILY 12/07/19 02/21/23 History levothyroxine 100 mcg tablet 100 mcg PO QAM 01/23/20 02/21/23 History Portable Oxygen #1 ea 04/04/20 02/21/23 Rx clonidine HCl 0.1 mg tablet 0.2 mg PO BID@0800,199905/13/20 02/21/23 History buspirone 15 mg tablet 15 mg PO TID 01/16/21 02/21/23 History gabapentin 100 mg capsule 100 mg PO BID 01/16/21 02/21/23 History polyethylene glycol 3350 17 gram 17 g PO DAILY PRN constipation #30 01/19/21 02/21/23 Rx oral powder packet (Miralax) ea donepezil 5 mg tablet (Aricept) 5 mg PO QAM 01/20/21 02/21/23 History ipratropium 0.5 mg-albuterol 3 mg 3 ml inhalation Q8H PRN shortness 03/17/21 0 02/21/23 Rx (2.5 mg base)/3 mL nebulization of breath or wheezing #270 mL soln docusate sodium 100 mg capsule 100 mg PO BID PRN Constipation 04/16/21 02/21/23 History Lactobacillus acidoph-L.bulgaricus 1 tab PO BID #30 tabs 04/19/21 02/21/23 Rx 1 million cell chewable tablet (Lactinex) pantoprazole 40 mg tablet,delayed 40 mg PO BID 30 days #60 tabs 08/26/22 02/21/23 Rx release (Protonix) acetaminophen 500 mg tablet 500 mg PO BID 02/13/23 02/21/23 History aspirin 81 mg capsule 81 mg PO DAILY 02/13/23 02/21/23 History azithromycin 250 mg tablet 250 mg PO MOWEFR@0900 02/13/23 02/21/23 History bisacodyl 10 mg rectal suppository 5 mg MN DAILY PRN Constipation 02/13/23 02/21/23 History (Dulcolax (bisacodyl)) clonidine HCl 0.1 mg tablet 0.1 mg PO BID PRN elevated bp 02/13/23 02/21/23 History dextromethorphan-guaifenesin ER 60 1 tab PO Q12H 02/13/23 02/21/23 History mg-1,200 mg tab,extend release,12hr (Mucinex DM) famotidine 20 mg tablet 20 mg PO BID 02/13/23 02/21/23 History guaifenesin 100 mg/5 mL oral liquid 200 mg PO Q4H PRN Cough 02/13/23 02/21/23 History haloperidol lactate 2 mg/mL oral 0.5 mg PO Q4H PRN Agitation 02/13/23 02/21/23 History concentrate lactulose 10 gram/15 mL oral 10 g PO TID PRN Constipation 02/13/23 02/21/23 History solution lorazepam 0.5 mg tablet (Ativan) 0.5 mg PO QID PRN Anxiety 02/13/23 02/21/23 History methadone 5 mg tablet 5 mg PO TID 02/13/23 02/21/23 History morphine 100 mg/5 mL oral 20 mg PO Q2H PRN Pain 02/13/23 02/21/23 History concentrate ondansetron 4 mg oral soluble film 4 mg PO Q6H PRN Nausea 02/13/23 02/21/23 History prednisone 10 mg tablet 10 mg PO DAILY 02/13/23 02/21/23 History promethazine-DM 6.25 mg-15 mg/5 mL 5 ml PO QID PRN Cough 02/13/23 02/21/23 History oral syrup sennosides 8.6 mg-docusate sodium 2 tab-cap PO BID 02/13/23 02/21/23 History 50 mg tablet (Senna-S) tamsulosin 0.4 mg capsule 0.4 mg PO DAILY 02/13/23 02/21/23 History Past Med/Surg History Medical History Anxiety and depression Chronic back pain CKD (chronic kidney disease), stage III stage 3. follows with pcp. Degenerative disc disease GERD (gastroesophageal reflux disease) History of breast cancer bilateral HTN (hypertension) Hx of duodenal ulcer Hyperlipidemia Hypothyroidism ILD (interstitial lung disease) Mild cognitive impairment On home oxygen therapy 2lpm via n/c continuous BERNA (obstructive sleep apnea) intolerant to cpap Osteoarthritis Pulmonary fibrosis Restless legs syndrome hx SCC (squamous cell carcinoma) face Surgical History History of bilateral tubal ligation History of bronchoscopy History of cardiac cath no stents. (~1979) History of colonoscopy History of esophagogastroduodenoscopy (EGD) History of lung surgery thorascopy for lung biopsy S/P mastectomy, bilateral lymph node removal Left arm S/P thyroidectomy partial (r/t nodule) Family History Sister Myocardial infarction Sister Stroke Other No family history of adverse response to anesthesia Social History Smoking Status: Former smoker Tobacco Type: Cigarettes Cigarettes Per Day: 50 pack yr hx; Second Hand Exposure: No; Do You Dip or Chew Tobacco: No; Hx Alcohol Use: No Hx Substance Use: No Preferred Language: Citizen Of [place] Communication Ability: Effective Journalist Required: No Beliefs That Will Affect Care: None marital status: Current Living Situation: Alone Current Living Situation Comment: Senior apartment building How many Children do You have: 2 Feels Safe at Home: Yes Assistive Devices: Oxygen - Continuous and Walker Review of Systems Review of Systems: Other (limited due to drowsiness/mild cognitive impairment) Physical Exam Constitutional: no acute distress drowsy but arousable Eyes: + anicteric sclerae Neck: trachea midline Respiratory: no respiratory distress and no labored breathing Auscultation: + diminished lung sounds Cardiovascular: Rate/Rhythm: regular rate Vessels: radial pulses present Extremities: + edema (2+ pitting bilateral) Gastrointestinal (Abdomen): Inspection/Auscultation: + abdomen distended and normal bowel sounds Musculoskeletal: Head/Neck/Chest: + scalp tenderness (frontal over contusion); no chest wall crepitus Skin: bilateral knee abrasions Neurologic: moves all extremities Psychiatric: Orientation: oriented to person, oriented to place and cooperative Affect: + flat affect Results & Data Results & Data Vital Signs (Past 12 Hours) Vital Signs Temp Pulse Pulse Resp BP BP Pulse Ox 02/21/23 09:32 75 12 160/77 H 99 02/21/23 07:31 78 02/21/23 08:24 66 14 125/67 99 02/21/23 07:40 76 18 120/59 L 99 02/21/23 07:21 37.1 C 80 18 155/76 H 99 O2 Del Method O2 Flow Rate 02/21/23 09:32 Nasal Cannula 4 02/21/23 07:31 02/21/23 08:24 Nasal Cannula 4 02/21/23 07:40 Nasal Cannula 4 02/21/23 07:21 Room Air Laboratory Results Laboratory Results - last 24 hr 02/21/23 02/21/23 02/21/23 07:34 07:34 08:21 WBC 13.47 H RBC 4.07 L Hgb 12.0 Hct 37.3 MCV 91.6 MCH 29.5 MCHC 32.2 RDW Std Deviation 49.1 H RDW Coeff of Karel 14.6 H Plt Count 177 MPV 10.4 Immature Gran % (Auto) 1.6 Neut % (Auto) 83.9 Lymph % (Auto) 5.9 [place] % (Auto) 8.1 Eos % (Auto) 0.4 Baso % (Auto) 0.1 Neut # (Auto) 11.31 H Lymph # (Auto) 0.80 L [place] # (Auto) 1.09 H Eos # (Auto) 0.05 Baso # (Auto) 0.01 Immature Gran # (Auto) 0.21 H VBG pH VBG pCO2 VBG pO2 VBG HCO3 VBG O2 Saturation VBG Base Excess Sodium 135 L Potassium 4.0 Chloride 97 L Carbon Dioxide 33 H Anion Gap 5 BUN 25 H Creatinine 0.80 Est Cr Clr Drug Dosing Not Reportable Est GFR ( Amer) 84.2 Est GFR (Non-Af Amer) 72.6 BUN/Creatinine Ratio 31.3 H Glucose 110 H Lactate 1.1 Calcium 9.4 Total Bilirubin 1.0 AST 44 H ALT 30 Alkaline Phosphatase 69 Troponin I High Sens 36.3 H Total Protein 6.0 Albumin 3.7 Globulin 2.3 L Albumin/Globulin Ratio 1.6 Lipase 13 Procalcitonin 02/21/23 02/21/23 08:21 08:21 WBC RBC Hgb Hct MCV MCH MCHC RDW Std Deviation RDW Coeff of [place]arel Plt Count MPV Immature Gran % (Auto) Neut % (Auto) Lymph % (Auto) [place] % (Auto) Eos % (Auto) Baso % (Auto) Neut # (Auto) Lymph # (Auto) [place] # (Auto) Eos # (Auto) Baso # (Auto) Immature Gran # (Auto) VBG pH 7.39 VBG pCO2 56 H VBG pO2 57 VBG HCO3 34 VBG O2 Saturation 87.4 VBG Base Excess 7.4 Sodium Potassium Chloride Carbon Dioxide Anion Gap BUN Creatinine Est Cr Clr Drug Dosing Est GFR ( Amer) Est GFR (Non-Af Amer) BUN/Creatinine Ratio Glucose Lactate Calcium Total Bilirubin AST ALT Alkaline Phosphatase Troponin I High Sens Total Protein Albumin Globulin Albumin/Globulin Ratio Lipase Procalcitonin 0.12 Diagnostic Findings Cervical Spine CT 02/21/23 07:34 CT cervical spine wo con CLINICAL HISTORY: 72 years-old Female with fall. Acute neck pain status post fall COMPARISON: Head CT of same day, CT neck 08/23/2022 TECHNIQUE: Multiple axial CT images of the cervical spine were obtained without contrast. A dose lowering technique was utilized adhering to the principles of ALARA. FINDINGS: Multilevel changes. No acute fracture or subluxation. Grade 1 anterolisthesis C4 on C5 is likely secondary to chronic facet arthrosis. Calcified plaque of the carotid bulbs. The cervical soft tissues appear unremarkable. No pneumothorax. Emphysema with chronic fibrotic changes of the lung apices. IMPRESSION: No acute cervical spine fracture or subluxation. Chest X-Ray 02/21/23 07:34 XR chest 1V portable HISTORY: 72 years-old Female fall acute chest trauma status post fall COMPARISON: CTA chest 02/13/2023 TECHNIQUE: AP view of the chest FINDINGS: Cardiac silhouette is enlarged. Chronic interstitial coarsening. There is no pneumothorax, pleural effusion or overt pulmonary edema. Emphysema with chronic fibrosis. Irregular subpleural lesion within the left upper lobe measuring 4.5 cm. Degenerative changes of the shoulders and spine. IMPRESSION: 1. Emphysema with chronic fibrotic changes. 2. Suspicious irregular subpleural consolidative opacity of the left upper lobe measuring 4.5 cm again noted. Continued follow-up recommended. Head CT 02/21/23 07:34 CT head/brain wo con CLINICAL HISTORY: 72 years-old Female with fall. Acute head trauma status post fall TECHNIQUE: Multiple axial CT images of the head were obtained without contrast. A dose lowering technique was utilized adhering to the principles of ALARA. COMPARISON: 08/23/2022 FINDINGS: No acute intracranial hemorrhage, midline shift, intracranial mass, hydrocephalus, territorial ischemia or abnormal extra-axial collection. Mildly motion degraded exam. The calvarium is intact. Prior bilateral lens repair. Small anterior frontal sca lp contusions. The paranasal sinuses, mastoid air cells, and middle ear cavities are clear. IMPRESSION: 1. No acute intracranial abnormality or calvarial fracture. 2. Small anterior frontal scalp contusions. ACT 112: Negative or not required by law. Abdomen/Pelvis CT 02/21/23 07:36 CT abd pelvis IV con only, CT lumbar spine w con CLINICAL HISTORY: fall, abd pain TECHNIQUE: Helical axial images of the abdomen and pelvis were obtained and displayed. Automated dose lowering techniques and/or adjustment according to patient size were utilized for this exam. Dedicated images of the lumbar spine were obtained. This exam was performed with intravenous contrast. CT DOSE: 2656.29 mGy.cm COMPARISON: Comparison is made to CT abdomen pelvis 02/13/2023 FINDINGS: Lower chest: Interstitial thickening is seen. Liver: Numerous hepatic hypodensities are seen. Gallbladder and biliary tree: No calcified gallstones. Normal caliber wall. No intra- or extrahepatic biliary ductal dilation. Pancreas: Fatty replacement of the pancreas is seen. Spleen: Unremarkable. Adrenals: Unremarkable. Kidneys and ureters: Nonobstructive nephrolithiasis is seen. Bladder: Unremarkable. Reproductive organs: Unremarkable. Bowel: A hiatal hernia is seen. Diverticulosis is seen without evidence of diverticulitis. Lymph nodes Retroperitoneal: Unremarkable. Pelvic: Unremarkable. Mesenteric: Unremarkable. Peritoneum: Normal. Vessels: Atherosclerotic calcifications are seen. Abdominal wall: Bilateral fat-containing inguinal hernias are seen. Diastases of the abdominal wall is seen. There is a fat-containing umbilical hernia. A small amount of fat stranding is seen in the anterior abdominal wall. Bones: Degenerative changes in the visualized spine. There is a compression deformity of T11 which has increased from the prior exam without significant retropulsion. IMPRESSION: 1. Acute compression fracture of T11. There is body wall contusion in the anterior soft tissues. Otherwise no acute abnormalities are seen. No evidence of intraperitoneal hemorrhage. 2. Redemonstration multiple hypodensities in the liver concerning for malign [place], follow-up MRI liver mass protocol is recommended. Lumbar Spine CT 02/21/23 07:50 CT abd pelvis IV con only, CT lumbar spine w con CLINICAL HISTORY: fall, abd pain TECHNIQUE: Helical axial images of the abdomen and pelvis were obtained and displayed. Automated dose lowering techniques and/or adjustment according to patient size were utilized for this exam. Dedicated images of the lumbar spine were obtained. This exam was performed with intravenous contrast. CT DOSE: 2656.29 mGy.cm COMPARISON: Comparison is made to CT abdomen pelvis 02/13/2023 FINDINGS: Lower chest: Interstitial thickening is seen. Liver: Numerous hepatic hypodensities are seen. Gallbladder and biliary tree: No calcified gallstones. Normal caliber wall. No intra- or extrahepatic biliary ductal dilation. Pancreas: Fatty replacement of the pancreas is seen. Spleen: Unremarkable. Adrenals: Unremarkable. Kidneys and ureters: Nonobstructive nephrolithiasis is seen. Bladder: Unremarkable. Reproductive organs: Unremarkable. Bowel: A hiatal hernia is seen. Diverticulosis is seen without evidence of diverticulitis. Lymph nodes Retroperitoneal: Unremarkable. Pelvic: Unremarkable. Mesenteric: Unremarkable. Peritoneum: Normal. Vessels: Atherosclerotic calcifications are seen. Abdominal wall: Bilateral fat-containing inguinal hernias are seen. Diastases of the abdominal wall is seen. There is a fat-containing umbilical hernia. A small amount of fat stranding is seen in the anterior abdominal wall. Bones: Degenerative changes in the visualized spine. There is a compression deformity of T11 which has increased from the prior exam without significant retropulsion. IMPRESSION: 1. Acute compression fracture of T11. There is body wall contusion in the anterior soft tissues. Otherwise no acute abnormalities are seen. No evidence of intraperitoneal hemorrhage. 2. Redemonstration multiple hypodensities in the liver concerning for malignancy, follow-up MRI liver mass protocol is recommended. Medications Administered Discontinued Medications Sodium Chloride (Nss) 500 mls @ 999 mls/hr IV .Q31M ONE Stop: 02/21/23 08:26 Last Infusion: 02/21/23 09:31 Dose: 0 mls/hr Documented By: Admin: 02/21/23 08:13 Dose: 999 mls/hr Documented By: MILLICENT Acetaminophen (Ofirmev) 1,000 mg in 100 mls @ 400 mls/hr IV NOW STA Stop: 02/21/23 08:58 Last Infusion: 02/21/23 09:52 Dose: 0 mls/hr Documented By: Admin: 02/21/23 09:31 Dose: 400 mls/hr Documented By: MILLICENT Code Status & VTE Plan VTE Prophylaxis Plan VTE Prophylaxis will be ordered: Yes Supervising Physician Co-Signing Physician Notes I have seen and discussed the case with the collaborating LATRICIA. I agree with the above H&P. I have reviewed and confirmed the patients medical history, the findings on physical examination, and the patients diagnosis and treatment plan with José Miguel Crowley PA-C and agree with the information documented. In short, Ms Licona is a 72 year old woman with complicated medical history notable for severe COPD/ILD recently transitioned to hospice who is admitted for mechanical fall and failure to thrive. Case management is aware of possible difficulties with placement given deconditioning, hospice status, and living situation. Plan for pain management and close collaboration with case management for ongoing dispo planning. (8) HTN (hypertension) Hypertension type: unspecified Qualified Code(s): I10 - Essential (primary) hypertension
[2023-02-21] MEDS: LIDOCAINE 5% 1 PATCH TD SCH (14:34)
[2023-02-21] MEDS ORDERED: ALBUT/IPRATROP 3MG/0.5MG NEB 3 ML VIAL INH PRN (16:40)
[2023-02-21] MEDS ORDERED: bisacodyL 10 MG SUPP PR PRN (16:40)
[2023-02-21] MEDS ORDERED: POLYETHYLENE (MIRALAX) 17 GM PACK PO PRN (16:40)
[2023-02-21] MEDS ORDERED: LORATADINE 10 MG TAB PO PRN (16:40)
[2023-02-21] MEDS ORDERED: guaiFENesin SUGAR FREE 100 MG/5 ML UDC PO PRN (16:40)
[2023-02-21] MEDS ORDERED: HALOPERIDOL ORAL SOLN 2 MG/ML PO PRN (16:51)
[2023-02-21] MEDS ORDERED: LACTULOSE SYRUP 10 GM/15 ML BTL 960 ML PO PRN (16:51)
[2023-02-21] MEDS ORDERED: ONDANSETRON 4 MG OD TAB PO PRN (16:54)
[2023-02-21] MEDS ORDERED: PROMETHAZINE HCL SYRUP 6.25 MG/5 ML PO PRN ×2 (17:08→17:15)
[2023-02-21] MEDS ORDERED: DEXTROMETHORPHAN POLYMR COMPLX 30MG/5 ML BTL PO PRN (17:09)
[2023-02-21] MEDS: ACETAMINOPHEN 325 MG TAB PO PRN (17:26)
[2023-02-21] MEDS: MoRPHine SULFATE 10 MG/0.5 ML UDP PO PRN ×2 (18:18→20:44)
[2023-02-21] MEDS: METHADONE HCL 5 MG TAB PO SCH ×2 (18:18→21:05)
[2023-02-21] MEDS: busPIRone 15 MG TAB PO SCH ×2 (19:57→20:50)
[2023-02-21] MEDS: guaiFENesin 600 MG TABCR PO SCH (20:45)
[2023-02-21] MEDS: PANTOprazole 40 MG TAB PO SCH (20:46)
[2023-02-21] MEDS: DOCUSATE SODIUM/SENNA 50/8.6MG TAB PO SCH (20:46)
[2023-02-21] MEDS: MONTELUKAST SODIUM 10 MG TABLET PO SCH (20:46)
[2023-02-21] MEDS: ADVANCED PROBIOTIC 1250 MG CAPSULE PO SCH (20:47)
[2023-02-21] MEDS: ACETAMINOPHEN 500 MG TAB PO SCH (20:47)
[2023-02-21] MEDS: cloNIDine HCL 0.1 MG TAB PO SCH (20:47)
[2023-02-21] MEDS: DEXTROMETHORPHAN POLYMR COMPLX 60 MG/10 ML UDP PO SCH (20:48)
[2023-02-21] MEDS: FAMOTIDINE 20 MG TAB PO SCH (20:48)
[2023-02-21] MEDS ORDERED: GABAPENTIN 100 MG CAP PO SCH (21:00)
[2023-02-21] MEDS: LORazepam 0.5 MG TAB PO PRN (21:05)
[2023-02-21 22:06] LABS: Appearance Urine Clear (Clear); Bilirubin Urine Negative (Negative); Blood Urine Negative (Negative); Color Urine Yellow; Glucose Urine UA Negative (Negative); Ketones Urine Negative (Negative); Leukocyte Esterase Urine Negative (Negative); Nitrite Urine Negative (Negative); Protein Urine Negative (Negative); Specific Gravity Urine 1.023 (1.000-1.030); Urobilinogen Urine Negative (Negative)
[2023-02-22] MEDS: LEVOTHYROXINE SODIUM 100 MCG TABLET PO SCH (05:10)
--- NOTE | 2023-02-22 05:43 | Electrocardiogram Report ---
Test Reason : Blood Pressure : / mmHG Vent. Rate : 079 BPM Atrial Rate : 079 BPM P-R Int : 136 ms QRS Dur : 090 ms QT Int : 374 ms P-R-T Axes : 037 -30 031 degrees QTc Int : 428 ms Normal sinus rhythm Left axis deviation Moderate voltage criteria for LVH, may be normal variant ( R in aVL , Matty product ) Nonspecific ST abnormality Abnormal ECG When compared with ECG of 13-FEB-2023 09:37, Prior tracing appears to have lead reversal , otherwise no change Confirmed by Eric Meadows ([id number]) on 02/22/2023 5:42:43 AM Referred By: REFERRED SELF Confirmed By:Eric Meadows
[2023-02-22] MEDS: MoRPHine SULFATE 10 MG/0.5 ML UDP PO PRN ×3 (05:55→21:31)
[2023-02-22] MEDS: DEXTROMETHORPHAN POLYMR COMPLX 60 MG/10 ML UDP PO SCH ×2 (08:27→21:22)
[2023-02-22] MEDS: dilTIAZem HCL 180 MG CAPCR PO SCH (08:27)
[2023-02-22] MEDS: ASPIRIN 81 MG ECTAB PO SCH (08:27)
[2023-02-22] MEDS: DONEPEZIL HCL 5 MG TAB PO SCH (08:27)
[2023-02-22] MEDS: TAMSULOSIN HCL 0.4 MG CAP PO SCH (08:28)
[2023-02-22] MEDS: FUROSEMIDE 20 MG TAB PO SCH (08:28)
[2023-02-22] MEDS: DOCUSATE SODIUM/SENNA 50/8.6MG TAB PO SCH ×2 (08:28→21:31)
[2023-02-22] MEDS: ADVANCED PROBIOTIC 1250 MG CAPSULE PO SCH ×2 (08:28→21:19)
[2023-02-22] MEDS: guaiFENesin 600 MG TABCR PO SCH ×2 (08:28→21:20)
[2023-02-22] MEDS: PANTOprazole 40 MG TAB PO SCH ×2 (08:28→21:21)
[2023-02-22] MEDS: predniSONE 10 MG TABLET PO SCH (08:28)
[2023-02-22] MEDS: SERTRALINE HCL 100 MG TABLET PO SCH (08:28)
[2023-02-22] MEDS: ACETAMINOPHEN 500 MG TAB PO SCH ×2 (08:29→21:32)
[2023-02-22] MEDS: ENOXAPARIN INJ 40 MG/0.4 ML SYR SQ SCH (08:29)
[2023-02-22] MEDS: cloNIDine HCL 0.1 MG TAB PO SCH ×2 (08:29→21:19)
[2023-02-22] MEDS: busPIRone 15 MG TAB PO SCH ×3 (08:29→21:18)
[2023-02-22] MEDS: FAMOTIDINE 20 MG TAB PO SCH ×2 (08:29→21:45)
[2023-02-22] MEDS ORDERED: methylPREDNISolone 4 MG TAB, 6 DAY TAPER PO SCH (08:30)
[2023-02-22] MEDS: METHADONE HCL 5 MG TAB PO SCH ×3 (08:31→21:30)
--- NOTE | 2023-02-22 08:40 | Pain Management Consultation ---
Date of Consultation February 22, 2023 Assessment & Plan (1) Acute exacerbation of chronic low back pain: (2) Thoracic compression fracture: (3) Lumbar radicular pain: (4) Acute on chronic respiratory failure with hypoxia: (5) Therapeutic opioid-induced constipation (OIC): Plan 1. Patient with apparent chronic back pain which has been increasing over the past few weeks per her report although is extremely poor historian. Has been on chronic methadone recently transition to 5 mg 3 times daily and Roxanol 20 mg every 2 hours for breakthrough pain with reported poor efficacy on outpatient hospice care for her chronic interstitial lung disease with the possibility of metastatic cancer affecting the liver with possible primary in the lung. Her current pain complaint is predominantly at the thoracolumbar junction extending into the right flank and occasionally the right groin. In an attempt to further identify etiology of this complaint consider lumbar MRI with and without contrast. Goals of care need to be discussed with her primary team and hospice care to determine pathway of further imaging and potential treatment options. Would recommend outpatient hospice care team manage her current opiate therapy without change in recommendation upon this admission. 2. Will initiate Medrol Dosepak. Patient will maintain her daily prednisone 10 mg. 3. Will progress gabapentin to 200 mg twice daily 4. Due to her likely opioid-induced constipation, Relistor order was written Thank you for allowing us to participate in the care of Mrs. Licona History of Present Illness Reason for Consultation: Acute on chronic low back pain Requesting Physician: Isabel Panye PA-C Attending Physician: Martin Abbasi MD History of Present Illness Mrs. Licona is a 72-year-old female with past medical history significant for chronic hypoxic respiratory failure on 4 L O2 via nasal cannula due to COPD/pulmonary fibrosis/ILD, hypertension, mild cognitive impairment, CKD, chronic back pain, anxiety and depression, hypothyroidism on hospice care in the outpatient setting with a suspected liver metastasis of unknown primary source- potentially lung. Patient presented to the emergency department yesterday due to increased back pain complaints after a fall in the home yesterday. She is a poor historian although believes her back pain has been ongoing for many months but increasing over the past few weeks with minimal change based on her fall yesterday. Her primary pain generator is in the thoracolumbar junction radiating towards the right flank and occasionally the right groin per her report. Her pain is minimal in the sitting or supine position but escalates significantly with position change. She reports a fairly constant aching sensat ion at a 3-4/10 but episodes of sharp shooting and burning pain with movement rating this pain an 8-10/10. Patient was recently admitted for pneumonia and treated with IV steroids and antibiotics and transition to oral and discharged home. She is currently on methadone 5 mg 3 times daily and Roxanol 20 mg every 2 hours as needed breakthrough pain which is currently managed by her outpatient hospice care team. She reports Roxanol is effective at diminishing her pain lasting only 1-2 hours. She is unable to recall when she initiated methadone although review of PDMP indicates she has been on methadone for greater than 1 year. She denies any significant increase in pain with deep breathing, coughing or sneezing. She denies pain radiating into the lower extremities, foot drop or saddle anesthesia. She denies bowel or bladder incontinence. She is dealing with chronic constipation reporting that she has not had a bowel movement in 1 week and feels abdominal fullness. She has been utilizing multiple stool softeners and laxatives in the outpatient setting with minimal benefit. Patient has no further constitution complaints. Plan of care discussed with Dr. Marah Holden. Pain Assessment Full Body Front + Back: 1. Thoracolumbar junction 2. Right flank towards hip/groin 3. Radiating to right groin occasionally Pain scale - at its best (0-10): 3 Pain scale - at its worst (0-10): 10 Allergies Allergy/AdvReac Type Severity Reaction Status Date / Time baclofen Allergy Severe Unknown Verified 02/18/23 07:30 cefuroxime Allergy Severe Hives and Verified 02/18/23 07:30 Dizziness hydralazine Allergy Intermediate joint pain Verified 08/22/22 07:33 tetracycline Allergy Mild RASH Verified 02/18/23 07:30 budesonide AdvReac Severe caused her Verified 08/22/22 07:33 to cough constantly amlodipine AdvReac Mild Edema. Verified 08/22/22 07:33 Home Medications Medication Instructions Recorded Confirmed Type loratadine 10 mg tablet (Claritin) 10 mg PO QAM PRN Allergic Symptoms 07/29/19 02/21/23 History CPAP Machine #1 ea 08/06/19 02/21/23 Rx diltiazem HCl 180 mg 180 mg PO QAM 08/12/19 02/21/23 History capsule,extended release 24 hr (Cartia XT) sertraline 100 mg tablet (Zoloft) 100 mg PO QAM #30 tabs 10/15/19 02/21/23 Rx montelukast 10 mg tablet 10 mg PO HS 12/06/19 02/21/23 History furosemide 20 mg tablet (Lasix) 20 mg PO DAILY 12/07/19 02/21/23 History levothyroxine 100 mcg tablet 100 mcg PO QAM 01/23/20 02/21/23 History Portable Oxygen #1 ea 04/04/20 02/21/23 Rx clonidine HCl 0.1 mg tablet 0.2 mg PO BID@0800,199905/13/20 02/21/23 History buspirone 15 mg tablet 15 mg PO TID 01/16/21 02/21/23 History gabapentin 100 mg capsule 100 mg PO BID 01/16/21 02/21/23 History polyethylene glycol 3350 17 gram 17 g PO DAILY PRN constipation #30 01/19/21 02/21/23 Rx oral powder packet (Miralax) ea donepezil 5 mg tablet (Aricept) 5 mg PO QAM 01/20/21 02/21/23 History ipratropium 0.5 mg-albuterol 3 mg 3 ml inhalation Q8H PRN shortness 03/17/21 02/21/23 Rx (2.5 mg base)/3 mL nebulization of breath or wheezing #270 mL soln docusate sodium 100 mg capsule 100 mg PO BID PRN Constipation 04/16/21 02/21/23 History Lactobacillus acidoph-L.bulgaricus 1 tab PO BID #30 tabs 04/19/21 02/21/23 Rx 1 million cell chewable tablet (Lactinex) pantoprazole 40 mg tablet,delayed 40 mg PO BID 30 days #60 tabs 08/26/22 02/21/23 Rx release (Protonix) acetaminophen 500 mg tablet 500 mg PO BID 02/13/23 02/21/23 History aspirin 81 mg capsule 81 mg PO DAILY 02/13/23 02/21/23 History azithromycin 250 mg tablet 250 mg PO MOWEFR@0900 02/13/23 02/21/23 History bisacodyl 10 mg rectal suppository [address] DAILY PRN Constipation 02/13/23 02/21/23 History (Dulcolax (bisacodyl)) clonidine HCl 0.1 mg tablet 0.1 mg PO BID PRN elevated bp 02/13/23 02/21/23 History dextromethorphan-guaifenesin ER 60 1 tab PO Q12H 02/13/23 02/21/23 History mg-1,200 mg tab,extend release,12hr (Mucinex DM) famotidine 20 mg tablet 20 mg PO BID 02/13/23 02/21/23 History guaifenesin 100 mg/5 mL oral liquid 200 mg PO Q4H PRN Cough 02/13/23 02/21/23 History haloperidol lactate 2 mg/mL oral 0.5 mg PO Q4H PRN Agitation 02/13/23 02/21/23 History concentrate lactulose 10 gram/15 mL oral 10 g PO TID PRN Constipation 02/13/23 02/21/23 His tory solution lorazepam 0.5 mg tablet (Ativan) 0.5 mg PO QID PRN Anxiety 02/13/23 02/21/23 Hi story methadone 5 mg tablet 5 mg PO TID 02/13/23 02/21/23 History morphine 100 mg/5 mL oral 20 mg PO Q2H PRN Pain 02/13/23 02/21/23 History concentrate ondansetron 4 mg oral soluble film 4 mg PO Q6H PRN Nausea 02/13/23 02/21/23 History prednisone 10 mg tablet 10 mg PO DAILY 02/13/23 02/21/23 History promethazine-DM 6.25 mg-15 mg/5 mL 5 ml PO QID PRN Cough 02/13/23 02/21/23 History oral syrup sennosides 8.6 mg-docusate sodium 2 tab-cap PO BID 02/13/23 02/21/23 History 50 mg tablet (Senna-S) tamsulosin 0.4 mg capsule 0.4 mg PO DAILY 02/13/23 02/21/23 History Pain History Pain Intensity Pain scale - at its best (0-10): 3 Pain scale - at its worst (0-10): 10 Patient History Medical History (Updated 02/22/23 @ 08:35 by Dangelo Pool PA-C) Acute exacerbation of chronic low back pain Anxiety and depression Chronic back pain CKD (chronic kidney disease), stage III stage 3. follows with pcp. Degenerative disc disease GERD (gastroesophageal reflux disease) History of breast cancer bilateral HTN (hypertension) Hx of duodenal ulcer Hyperlipidemia Hypothyroidism ILD (interstitial lung disease) Lumbar radicular pain Mild cognitive impairment On home oxygen therapy 2lpm via n/c continuous BERNA (obstructive sleep apnea) intolerant to cpap Osteoarthritis Pulmonary fibrosis Restless legs syndrome hx SCC (squamous cell carcinoma) face Therapeutic opioid-induced constipation (OIC) Surgical History History of bilateral tubal ligation History of bronchoscopy History of cardiac cath no stents. (~1979) History of colonoscopy History of esophagogastroduodenoscopy (EGD) History of lung surgery thorascopy for lung biopsy S/P mastectomy, bilateral lymph node removal Left arm S/P thyroidectomy partial (r/t nodule) Family History Sister Myocardial infarction Sister Stroke Other No family history of adverse response to anesthesia Social History Smoking Status: Former smoker Tobacco Type: Cigarettes Cigarettes Per Day: 50 pack yr hx; Smoking End Date: 16 years ago; Second Hand Exposure: No; Do You Dip or Chew Tobacco: No; Tobacco Cessation Education Requested by Patient: No Hx Alcohol Use: No Hx Substance Use: No Preferred Language: Polish Communication Ability: Effective Masonry Inspector Required: No Beliefs That Will Affect Care: None marital status: Current Living Situation: Alone Current Living Situation Comment: [facility] apartment building How many Children do You have: 2 Other Information That Helps Us Care for You: No Feels Safe at Home: Yes Safety Concerns: Feels Safe At This Time Assistive Devices: Glasses and Oxygen - Continuous Physical Exam Physical Exam: General: Patient lying quietly in exam room in no acute distress. Patient appears to have moderate distress with movement. Speech and thought process appropriate. Mood and affect appropriate. Patient with difficulty with memory recall of past events and length of use of certain medications. Head: Normocephalic and atraumatic. ENT: No evidence of nasal or oral mucosal lesions. Mucous membranes are moist. Eyes: Pupils equal round reactive to light. Neck: Supple without adenopathy and full range of motion. Chest: Nontender to palpation of the costosternal junction. Abdomen: Firm and distended. Tympanic. Some generalized tenderness to palpation. No organomegaly. Bowel sounds diminished. Back/spine: Patient able to logroll towards her left side with assistance with discomfort. Patient is tender over the midline at the thoracolumbar junction to palpation and percussion. Patient is tender in the right thoracolumbar paravertebral musculature extending towards the flank. Patient has an area of ecchymosis on the right flank measuring approximately 2 cm x 4 cm in an oval shape. Lower extremities: SLR on the right with some increased axial pain. SLR negative on the left. Strength testing 5/5 with dorsiflexion, plantarflexion, EHL testing and hip flexion/extension. Sensation intact without deficit. No appreciable edema. Neurologic: Cranial nerves grossly intact. Ambulatory function not witnessed. Results (Pain Clinic) Diagnostic Review CT Findings: [place], [place] [phone] CT Scan Report Patient:GEMMA LICONA Admit Date:02/21/23 MR#:[id number] Address1:[address] [place] [address] [id number] Acct ID:[id number] Address2: Date:1950 [facility] Zip:[place] [address] Age:72 Location:ED Sex:F Room/Bed: Att Phy: Diagnosis:FALL Triny Phy:Cristina Vizcarra MD Service Date:02/21/23 [facility] Phy: Interpreting Phy:Anthony Lewis MDAdmit Phy: Ordering Phy:Stephanie Donohue PA-C cc: ~ CT abd pelvis IV con only, CT lumbar spine w con CLINICAL HISTORY: fall, abd pain TECHNIQUE: Helical axial images of the abdomen and pelvis were obtained and displayed. Automated dose lowering techniques and/or adjustment according to patient size were utilized for this exam. Dedicated images of the lumbar spine were obtained. This exam was performed with intravenous contrast. CT DOSE: 2656.29 mGy.cm COMPARISON: Comparison is made to CT abdomen pelvis 02/13/2023 FINDINGS: Lower chest: Interstitial thickening is seen. Liver: Numerous hepatic hypodensities are seen. Gallbladder and biliary tree: No calcified gallstones. Normal caliber wall. No intra- or extrahepatic biliary ductal dilation. Pancreas: Fatty replacement of the pancreas is seen. Spleen: Unremarkable. Adrenals: Unremarkable. Kidneys and ureters: Nonobstructive nephrolithiasis is seen. Bladder: Unremarkable. Reproductive organs: Unremarkable. Bowel: A hiatal hernia is seen. Diverticulosis is seen without evidence of diverticulitis. Lymph nodes Retroperitoneal: Unremarkable. Pelvic: Unremarkable. Mesenteric: Unremarkable. Peritoneum: Normal. Vessels: Atherosclerotic calcifications are seen. Abdominal wall: Bilateral fat-containing inguinal hernias are seen. Diastases of the abdominal wall is seen. There is a fat-containing umbilical hernia. A small amount of fat stranding is seen in the anterior abdominal wall. Bones: Degenerative changes in the visualized spine. There is a compression deformity of T11 which has increased from the prior exam without significant retropulsion. IMPRESSION: 1. Acute compression fracture of T11. There is body wall contusion in the anterior soft tissues. Otherwise no acute abnormalities are seen. No evidence of intraperitoneal hemorrhage. 2. Redemonstration multiple hypodensities in the liver concerning for malignancy, follow-up MRI liver mass protocol is recommended. ACT 112: Negative or not required by law. Electronically signed by: Anthony Lewis M.D. 02/21/2023 9:28 AM Dictated:02/21/23857 Transcribed: 02/21/23857 [phone] CT Scan Report Patient:GEMMA LCIONA Admit Date:02/13/23 MR#:[id number] Address1:[address] [place] [address] [id number] Acct ID:[id number] Address2: Date:1950 [facility] Zip:[place] [address] Age:72 Location:ED Sex:F Room/Bed: Att Phy: Diagnosis:SOB Triny Phy:Cristina Vizcarra MD Service Date:02/13/23 Fam Phy: Interpreting [facility]: Ordering Phy:Polo Calhoun DO cc: ~ CT angio chest PE protocol, CT thoracic spine w con CLINICAL HISTORY: PE TECHNIQUE: Multidetector row helical CT of the chest was performed with angiographic protocol. Coronal and sagittal reformations were obtained. Coronal and sagittal MIPS were obtained from the axial data set and were submitted for review. Automated dose lowering techniques and/or adjustment according to pa tient size were utilized for this exam. Dedicated views of the thoracic spine were obtained. Comparison: Comparison is made to chest radiograph 02/13/2023, chest radiograph 08/22/2022, and CTA chest 04/16/2021 FINDINGS: Lungs and pleura: There is a 41 x 20 mm density in the left anterior lung which is new from prior exam. Extensive emphysema and interstitial thickening are seen. Heart and pericardium: Cardiomegaly is seen with biatrial enlargement. Vessels: No evidence of pulmonary embolism. Mediastinum and thuy: Multiple lymph nodes measure up to 8 mm. Chest wall and lower neck: Unremarkable. Abdomen: For findings below the diaphragm, please refer to CT of the abdomen dated the same. Bones: Degenerative changes in the thoracic spine. IMPRESSION: Extensive emphysema and interstitial thickening. No evidence of pulmonary embolus. There is a new consolidative density in the left upper lobe which may represent a focus of pneumonia. Follow-up to resolution is recommended. ACT 112: Negative or not required by law. Electronically signed by: Anthony Lewis M.D. 02/13/2023 12:06 PM Dictated:02/13/23 1201 Transcribed: 02/13/23 1201
[2023-02-22 08:55] LABS: Basophils # (auto) 0.01 K/uL (0-0.2); Basophils % (auto) 0.1 %; Eosinophils # (auto) 0.15 K/uL (0-0.50); Eosinophils % (auto) 1.8 %; Hematocrit (blood only) 36.7 % (37.0-47.0); Hemoglobin 11.9 g/dl (12.0-16.0); Immature Granulocytes # (auto) 0.08 K/uL (0.01-0.20); Immature Granulocytes % (auto) 0.9 %; Lymphocytes # (auto) 1.38 K/uL (1.2-3.4); Lymphocytes % (auto) 16.2 %; Mean Corpuscular Hemoglobin 29.6 pg (25.0-34.0); Mean Corpuscular Hgb Conc 32.4 g/dL (32.0-36.0); Mean Corpuscular Volume 91.3 fL (80.0-100.0); Mean Platelet Volume 10.2 fL (9.4-12.4); Monocytes # (auto) 0.79 K/uL (0.11-0.59); Monocytes % (auto) 9.3 %; Neutrophils % (auto) 71.7 %; Platelet Count 175 K/uL (130-400); RDW Coefficient of Variation 14.8 % (11.5-14.5); RDW Standard Deviation 49.5 fL (36.4-46.3); Red Blood Count 4.02 M/uL (4.20-5.40); White Blood Count 8.51 K/ul (4.8-10.8)
[2023-02-22 09:24] LABS: Calcium 8.9 mg/dl (8.6-10.3); Creatinine Clr Calc Pharmacy 87.9 ml/min; Est GFR (African American) 103.5 ml/min; Est GFR (Non-African American) 89.3 ml/min; Potassium 3.3 mmol/L (3.5-5.1)
[2023-02-22] MEDS: METHYLNALTREXONE BROMIDE 12 MG/0.6 ML VIAL SQ SCH (10:04)
[2023-02-22] MEDS: methylPREDNISolone 4 MG TAB PO SCH ×4 (10:05→21:21)
[2023-02-22] MEDS: GABAPENTIN 100 MG CAP PO SCH ×2 (10:05→21:19)
[2023-02-22] MEDS: POLYETHYLENE (MIRALAX) 17 GM PACK PO SCH (10:06)
[2023-02-22] MEDS: LIDOCAINE 5% 1 PATCH TD SCH (13:45)
[2023-02-22] MEDS ORDERED: POTASSIUM CHLORIDE CRTAB 20 MEQ TABCR PO ONE (17:47)
--- NOTE | 2023-02-22 17:55 | Hospitalist Progress Note ---
Date of Service February 22, 2023 Assessment & Plan (1) Fall: (2) Physical deconditioning: (3) Thoracic compression fracture: Plan: This is a 72 y/o female with a history of chronic hypoxic respiratory failure on 4L O2 via NC due to COPD, pulmonary fibrosis/ILD, HTN, mild cognitive impairment, CKD3, chronic back pain, anxiety and depression, hypothyroidism, BERNA intolerant of CPAP, and GERD, recently admitted for pneumonia and discharged on 02/17, who presented to the ED via EMS after a fall at home. Pt is on home hospice for end-stage COPD and probable underlying malignancy. Per pt's manager legal, Adeline ([phone]), she notes that patient has been increasingly weak and having difficulty managing at home. Pt does have intermittent help from the office of aging but apparently not consistent. After her fall with rec ent hospital discharge, hospice team thinks that pt likely needs a higher level of care and would benefit from assisted living or SNF placement. Pt has been resistant to this previously but seems to be agreeable at this point. Lumbar spine CT-acute compression fracture of T11 Home pain medication regimen -methadone 5 mg TID, Roxanol 20 mg q2h breakthrough pain Pain management consulted --added Medrol Dosepak, patient to maintain daily prednisone 10 mg. Gabapentin increased to 200 mg BID. PT/OT, case management consults -- likely will need SNF placement under hospice services (4) Emphysema with chronic bronchitis: (5) Chronic respiratory failure: Plan: Chronically on 4 L No signs of acute exacerbation (6) Hypothyroidism: Plan: Continue levothyroxine (7) HTN (hypertension): Plan: BP controlled, continue clonidine, diltiazem, furosemide (8) Anxiety and depression: Plan: Stable, continue home meds DVT PROPHYLAXIS SQ Lovenox Dispo-pending, PT/OT, case management consults. Patient likely will need SNF placement under hospice services. Patient seen in collaboration with Dr. Abbasi. Admission and Anticipated Discharge Date Admission Date: February 21, 2023 Supervising Physician Co-Signing Physician Notes Pt seen and examined by me, care coordinated with Hernandez SUE, pls refer to her note above for further detail. Pt is currently sitting up in bed in NAD, on suppl. O2, in no distress, and only reports back pain. says her back pain has not changed as far as she can tell. Tells me she fell at home. She is using [facility] hospice service. On physical exam she is drowsy but able to answer appropriately. Lungs are diminished on auscultation. Heart sounds regular. Abdomen distended but nontender w/ + bowel sounds. Moves extremities. Pain management consulted. [facility] hospice contacted as above. CM involved. MD Ayleen Subjective Follow-up for intractable back pain, fall, ambulatory dysfunction. Patient seen and examined. Reports ongoing back pain. Denies chest pain or shortness of breath. No abdominal pain or nausea. Review of Systems Review of Systems: All systems reviewed & are unremarkable except as noted in Subjective Physical Exam Constitutional: WD/WN, vitals as above Respiratory: normal respiratory effort; no respiratory distress Auscultation: + diminished lung sounds Cardiovascular: Rate/Rhythm: regular rate and regular rhythm Vessels: normal peripheral pulses Gastrointestinal (Abdomen): Percussion/Palpation: abdomen soft; abdomen nontender Skin: no rashes, warm and dry Neurologic: no focal motor deficits Psychiatric: A+Ox3, euthymic affect Results & Data Results & Data Vital Signs (Past 12 Hours) Vital Signs Temp Pulse Resp BP Pulse Ox O2 Del Method O2 Flow Rate 02/22/23 17:36 36.9 C 59 L 16 109/65 100 Room Air 02/22/23 09:00 Nasal Cannula 4 02/22/23 08:02 36.9 C 73 16 163/79 H 99 Nasal Cannula 4 Laboratory Results Short CBC 02/22/23 Range/Units 08:35 WBC 8.51 (4.8-10.8) K/ul Hgb 11.9 L (12.0-16.0) g/dl Hct 36.7 L (37.0-47.0) % Plt Count 175 (130-400) K/uL BMP 02/22/23 08:35 Sodium 139 Potassium 3.3 L Chloride 100 Carbon Dioxide 38 H BUN 11 Creatinine 0.61 Glucose 110 H Calcium 8.9 Urine 02/21/23 Range/Units 21:05 Urine Color Yellow Urine Appearance Clear (Clear) Urine pH 6.0 (4.5-7.5) Ur Specific [place] 1.023 (1.000-1.030) Urine Protein Negative (Negative) Urine Glucose (UA) Negative (Negative) Medications Administered Current Inpatient Medications Acetaminophen (Acetaminophen 325 Mg Tab) 650 mg PO Q4H PRN PRN Reason: pain/fever Stop: 03/23/23 16:39 Last Admin: 02/21/23 17:26 Dose: 650 mg Acetaminophen (Acetaminophen 500 Mg Tab) 500 mg PO BID [facility] Stop: 03/23/23 20:59 Last Admin: 02/22/23 08:29 Dose: 500 mg Albuterol (Albut/Ipratrop 3mg/0.5mg Neb 3 Ml Vial) 3 ml INH Q8H PRN; Protocol PRN Reason: shortness of breath or wheezing Stop: 03/23/23 16:39 Aspirin (Aspirin 81 Mg Ectab) 81 mg PO DAILY [facility] Stop: 03/24/23 08:59 Last Admin: 02/22/23 08:27 Dose: 81 mg Azithromycin (Azithromycin 250 Mg Tab) 250 mg PO MOWEFR@09 [facility] Stop: 03/25/23 08:59 Bisacodyl (Bisacodyl 10 Mg Supp) 5 mg [facility] DAILY PRN PRN Reason: Constipation Stop: 03/23/23 16:39 Buspirone HCl (Buspirone 15 Mg Tab) 15 mg PO TID [facility] Stop: 03/23/23 16:39 Last Admin: 02/22/23 13:45 Dose: 15 mg Clonidine HCl (Clonidine Hcl 0.1 Mg Tab) 0.2 mg PO BID@799,1999 [facility] Stop: 03/23/23 19:59 Last Admin: 02/22/23 08:29 Dose: 0.2 mg Dextromethorphan Polymer Complex (Dextromethorphan Polymr Complx 60 Mg/10 Ml Udp) 60 mg PO Q12H [facility] Stop: 03/23/23 20:59 Last Admin: 02/22/23 08:27 Dose: 60 mg Dextromethorphan Polymer Complex (Dextromethorphan Polymr Complx 30mg/5 Ml Btl) 15 mg PO QID PRN PRN Reason: Cough Stop: 03/23/23 17:08 Diltiazem HCl (Diltiazem Hcl 180 Mg Capcr) 180 mg PO QAM [facility] Stop: 03/24/23 08:59 Last Admin: 02/22/23 08:27 Dose: 180 mg Docusate Sodium (Docusate Sodium 100 Mg Cap) 100 mg PO BID PRN PRN Reason: Constipation Stop: 03/23/23 16:39 Donepezil HCl (Donepezil Hcl 5 Mg Tab) 5 mg PO QAM [facility] Stop: 03/24/23 08:59 Last Admin: 02/22/23 08:27 Dose: 5 mg Enoxaparin Sodium (Enoxaparin Inj 40 Mg/0.4 Ml Syr) 40 mg SQ QAM [facility] Stop: 03/24/23 08:59 Last Admin: 02/22/23 08:29 Dose: 40 mg Famotidine (Famotidine 20 Mg Tab) 20 mg PO BID [facility] Stop: 03/23/23 20:59 Last Admin: 02/22/23 08:29 Dose: 20 mg Furosemide (Furosemide 20 Mg Tab) 20 mg PO DAILY [facility] Stop: 03/24/23 08:59 Last Admin: 02/22/23 08:28 Dose: 20 mg Gabapentin (Gabapentin 100 Mg Cap) 200 mg PO BID [facility] Stop: 03/24/23 08:59 Last Admin: 02/22/23 10:05 Dose: 200 mg Guaifenesin (Guaifenesin Sugar Free 100 Mg/5 Ml Udc) 200 mg PO Q4H PRN PRN Reason: Cough Stop: 03/23/23 16:39 Guaifenesin (Guaifenesin 600 Mg Tabcr) 1,200 mg PO BID [facility] Stop: 03/23/23 20:59 Last Admin: 02/22/23 08:28 Dose: 1,200 mg Haloperidol (Haloperidol Oral Soln 2 Mg/Ml) 0.5 mg PO Q4H PRN PRN Reason: Agitation Stop: 03/23/23 16:50 Lactobacillus Acidophilus (Advanced Probiotic 1250 Mg Capsule) 2 cap PO BID [facility] Stop: 03/23/23 20:59 Last Admin: 02/22/23 08:28 Dose: 2 cap Lactulose (Lactulose Syrup 10 Gm/15 Ml Btl 960 Ml) 10 gm PO TID PRN PRN Reason: Constipation Stop: 03/23/23 16:50 Levothyroxine Sodium (Levothyroxine Sodium 100 Mcg Tablet) 100 mcg PO DAILYBB [facility] Stop: 03/24/23 06:29 Last Admin: 02/22/23 05:10 Dose: 100 mcg Lidocaine (Lidocaine 5% 1 Patch) 1 patch TD QAM [facility] Stop: 03/23/23 13:29 Last Admin: 02/22/23 13:45 Dose: 1 patch Loratadine (Loratadine 10 Mg Tab) 10 mg PO QAM PRN PRN Reason: Allergic Symptoms Stop: 03/23/23 16:39 Lorazepam (Lorazepam 0.5 Mg Tab) 0.5 mg PO QID PRN PRN Reason: Anxiety Stop: 03/23/23 16:39 Last Admin: 02/21/23 21:05 Dose: 0.5 mg Methadone HCl (Methadone Hcl 5 Mg Tab) 5 mg PO TID [facility] Stop: 03/07/23 16:39 Last Admin: 02/22/23 13:44 Dose: 5 mg Methylnaltrexone Gilbert (Methylnaltrexone Gilbert 12 Mg/0.6 Ml Vial) 12 mg SQ Q2D [facility] Stop: 03/24/23 08:59 Last Admin: 02/22/23 10:04 Dose: 12 mg Methylprednisolone (Methylprednisolone 4 Mg Tab) 8 mg PO 0900,2100 [facility] Stop: 02/22/23 21:01 Last Admin: 02/22/23 10:05 Dose: 8 mg Methylprednisolone (Methylprednisolone 4 Mg Tab) 4 mg PO 0700,1300,1800 [facility] Stop: 02/23/23 18:01 Methylprednisolone (Methylprednisolone 4 Mg Tab) 8 mg PO HS [facility] Stop: 02/23/23 21:01 Methylprednisolone (Methylprednisolone 4 Mg Tab) 4 mg PO 0700,1300,1800,2100 [facility] Stop: 02/24/23 21:01 Methylprednisolone (Methylprednisolone 4 Mg Tab) 4 mg PO 0700,1300,2100 [facility] Stop: 02/25/23 21:01 Methylprednisolone (Methylprednisolone 4 Mg Tab) 4 mg PO 0700,2100 [facility] Stop: 02/26/23 21:01 Methylprednisolone (Methylprednisolone 4 Mg Tab) 4 mg PO 0700 [facility] Stop: 02/27/23 07:01 Miscellaneous (Remove Lidoderm Patch) 1 each N/A DAILY@2100 [facility] Stop: 03/23/23 20:59 Last Admin: 02/21/23 20:52 Dose: 1 each Montelukast Sodium (Montelukast Sodium 10 Mg Tablet) 10 mg PO HS [facility] Stop: 03/23/23 20:59 Last Admin: 02/21/23 20:46 Dose: 10 mg Morphine Sulfate (Morphine Sulfate 10 Mg/0.5 Ml Udp) 20 mg PO Q2H PRN PRN Reason: Pain Stop: 03/07/23 16:58 Last Admin: 02/22/23 10:04 Dose: 20 mg Ondansetron HCl (Ondansetron 4 Mg Od Tab) 4 mg PO Q6H PRN PRN Reason: Nausea And Vomiting Stop: 03/23/23 16:53 Pantoprazole Sodium (Pantoprazole 40 Mg Tab) 40 mg PO BID [facility] Stop: 03/23/23 20:59 Last Admin: 02/22/23 08:28 Dose: 40 mg Polyethylene Glycol (Polyethylene (Miralax) 17 Gm Pack) 17 gm PO DAILY [facility] Stop: 03/24/23 08:59 Last Admin: 02/22/23 10:06 Dose: 17 gm Prednisone (Prednisone 10 Mg Tablet) 10 mg PO DAILY [facility] Stop: 03/24/23 08:59 Last Admin: 02/22/23 08:28 Dose: 10 mg Promethazine HCl (Promethazine Hcl Syrup 6.25 Mg/5 Ml) 6.25 mg PO QID PRN PRN Reason: Cough Stop: 03/23/23 17:07 Senna/Docusate Sodium (Docusate Sodium/Senna 50/8.6mg Tab) 2 tab PO BID [facility] Stop: 03/23/23 20:59 Last Admin: 02/22/23 08:28 Dose: 2 tab Sertraline HCl (Sertraline Hcl 100 Mg Tablet) 100 mg PO QAM [facility] Stop: 03/24/23 08:59 Last Admin: 02/22/23 08:28 Dose: 100 mg Tamsulosin HCl (Tamsulosin Hcl 0.4 Mg Cap) 0.4 mg PO DAILY [facility] Stop: 03/24/23 08:59 Last Admin: 02/22/23 08:28 Dose: 0.4 mg (7) HTN (hypertension) Hypertension type: unspecified Qualified Code(s): I10 - Essential (primary) hypertension
[2023-02-22] MEDS: MONTELUKAST SODIUM 10 MG TABLET PO SCH (21:21)
[2023-02-22] MEDS: DOCUSATE SODIUM 100 MG CAP PO PRN (21:32)
[2023-02-22] MEDS: LORazepam 0.5 MG TAB PO PRN (21:32)
[2023-02-23] MEDS: LEVOTHYROXINE SODIUM 100 MCG TABLET PO SCH (05:27)
[2023-02-23] MEDS: methylPREDNISolone 4 MG TAB PO SCH ×3 (05:28→17:44)
[2023-02-23] MEDS: MoRPHine SULFATE 10 MG/0.5 ML UDP PO PRN ×3 (05:31→20:50)
[2023-02-23] MEDS: DONEPEZIL HCL 5 MG TAB PO SCH (08:10)
[2023-02-23] MEDS: TAMSULOSIN HCL 0.4 MG CAP PO SCH (08:10)
[2023-02-23] MEDS: AZITHROMYCIN 250 MG TAB PO SCH (08:10)
[2023-02-23] MEDS: ADVANCED PROBIOTIC 1250 MG CAPSULE PO SCH ×2 (08:10→20:55)
[2023-02-23 08:11] LABS: Hematocrit (blood only) 34.6 % (37.0-47.0); Mean Corpuscular Hemoglobin 29.8 pg (25.0-34.0); Mean Corpuscular Hgb Conc 31.8 g/dL (32.0-36.0); Mean Corpuscular Volume 93.8 fL (80.0-100.0); Mean Platelet Volume 10.5 fL (9.4-12.4); Platelet Count 178 K/uL (130-400); RDW Coefficient of Variation 14.6 % (11.5-14.5); RDW Standard Deviation 50.3 fL (36.4-46.3); Red Blood Count 3.69 M/uL (4.20-5.40); White Blood Count 9.81 K/ul (4.8-10.8)
[2023-02-23] MEDS: GABAPENTIN 100 MG CAP PO SCH ×2 (08:11→20:56)
[2023-02-23] MEDS: busPIRone 15 MG TAB PO SCH ×3 (08:11→20:56)
[2023-02-23] MEDS: cloNIDine HCL 0.1 MG TAB PO SCH ×2 (08:11→20:56)
[2023-02-23] MEDS: guaiFENesin 600 MG TABCR PO SCH ×2 (08:11→20:55)
[2023-02-23] MEDS: SERTRALINE HCL 100 MG TABLET PO SCH (08:12)
[2023-02-23] MEDS: ASPIRIN 81 MG ECTAB PO SCH (08:12)
[2023-02-23] MEDS: FUROSEMIDE 20 MG TAB PO SCH (08:13)
[2023-02-23] MEDS: PANTOprazole 40 MG TAB PO SCH ×2 (08:14→20:55)
[2023-02-23] MEDS: ENOXAPARIN INJ 40 MG/0.4 ML SYR SQ SCH (08:15)
[2023-02-23] MEDS: POLYETHYLENE (MIRALAX) 17 GM PACK PO SCH (08:15)
[2023-02-23] MEDS: DEXTROMETHORPHAN POLYMR COMPLX 60 MG/10 ML UDP PO SCH ×2 (08:15→20:54)
[2023-02-23] MEDS: dilTIAZem HCL 180 MG CAPCR PO SCH (08:16)
[2023-02-23] MEDS: ACETAMINOPHEN 500 MG TAB PO SCH ×2 (08:46→20:57)
[2023-02-23] MEDS: METHADONE HCL 5 MG TAB PO SCH ×3 (08:47→20:52)
[2023-02-23] MEDS: DOCUSATE SODIUM/SENNA 50/8.6MG TAB PO SCH ×2 (08:47→20:51)
[2023-02-23 08:57] LABS: Calcium 9.2 mg/dl (8.6-10.3); Creatinine Clr Calc Pharmacy 92.5 ml/min; Est GFR (African American) 105.2 ml/min; Est GFR (Non-African American) 90.8 ml/min; Magnesium 2.2 mg/dl (1.7-2.4); Phosphorus 2.2 mg/dl (2.5-4.9); Potassium 4.8 mmol/L (3.5-5.1)
[2023-02-23] MEDS: predniSONE 10 MG TABLET PO SCH (09:11)
[2023-02-23] MEDS: LIDOCAINE 5% 1 PATCH TD SCH (11:01)
[2023-02-23] MEDS: FAMOTIDINE 20 MG TAB PO SCH ×2 (11:01→21:04)
--- NOTE | 2023-02-23 16:30 | Hospitalist Progress Note ---
Date of Service February 23, 2023 Assessment & Plan (1) Fall: (2) Physical deconditioning: (3) Thoracic compression fracture: Plan: This is a 72 y/o female with a history of chronic hypoxic respiratory failure on 4L O2 via NC due to COPD, pulmonary fibrosis/ILD, HTN, mild cognitive impairment, CKD3, chronic back pain, anxiety and depression, hypothyroidism, BERNA intolerant of CPAP, and GERD, recently admitted for pneumonia and discharged on 02/17, who presented to the ED via EMS after a fall at home. Pt is on home hospice for end-stage COPD and probable underlying malignancy. Per pt's district manager, Adeline ([phone]), she notes that patient has been increasingly weak and having difficulty managing at home. Pt does have intermittent help from the office of aging but apparently not consistent. After her fall with recent hospital discharge, hospice team thinks that pt likely needs a higher level of care and would benefit from assisted living or SNF placement. Pt has been resistant to this previously but seems to be agreeable at this point. Lumbar spine CT-acute compression fracture of T11 Home pain medication regimen -methadone 5 mg TID, Roxanol 20 mg q2h breakthrough pain Pain management consulted --added Medrol Dosepak, patient to maintain daily prednisone 10 mg. Gabapentin increased to 200 mg BID. Daughter at bedside expressing concerns that her mother may be overmedicated with pain medicine causing the patient to be lethargic and groggy. Palliative care consulted for medication management and assistance in hospice care coordination -- ? return home with hospice services vs SNF (4) Emphysema with chronic bronchitis: (5) Chronic respiratory failure: Plan: Chronically on 4 L No signs of acute exacerbation (6) Hypothyroidism: Plan: Continue levothyroxine (7) HTN (hypertension): Plan: BP controlled, continue clonidine, diltiazem, furosemide (8) Anxiety and depression: Plan: Stable, continue home meds DVT PROPHYLAXIS SQ Lovenox Dispo-pending; PT/OT, case management, palliative care consult Patient seen in collaboration with Dr. Cobian. Admission and Anticipated Discharge Date Admission Date: February 21, 2023 Subjective Follow-up for intractable back pain, fall, ambulatory dysfunction. Patient seen and examined. Reports back pain is somewhat improved from yesterday. Daughter at the bedside expressing concerns that her mother may be overmedicated. Patient reports breathing is at baseline. No chest pain. Denies abdominal pain or nausea. Physical Exam Constitutional: WD/WN, vitals as above no acute distress Respiratory: normal respiratory effort; no respiratory distress Auscultation: + diminished lung sounds Cardiovascular: Rate/Rhythm: regular rate and regular rhythm Vessels: normal peripheral pulses Extremities: no edema Gastrointestinal (Abdomen): Percussion/Palpation: abdomen soft; abdomen nontender Skin: no rashes, warm and dry Neurologic: no focal motor deficits Psychiatric: A+Ox3, euthymic affect Results & Data Results & Data Vital Signs (Past 12 Hours) Vital Signs Temp Pulse Resp BP Pulse Ox O2 Del Method O2 Flow Rate 02/23/23 08:24 36.6 C 76 16 172/78 H 97 Nasal Cannula 4 02/23/23 07:20 Nasal Cannula 4 02/23/23 06:56 36.9 C 59 L 16 134/66 95 Nasal Cannula 3 Laboratory Results Short CBC 02/23/23 Range/Units 07:43 WBC 9.81 (4.8-10.8) K/ul Hgb 11.0 L (12.0-16.0) g/dl Hct 34.6 L (37.0-47.0) % Plt Count 178 (130-400) K/uL BMP 02/23/23 07:43 Sodium 137 Potassium 4.8 D Chloride 100 Carbon Dioxide 37 H BUN 11 Creatinine 0.58 L Glucose 139 H Calcium 9.2 (7) HTN (hypertension) Hypertension type: unspecified Qualified Code(s): I10 - Essential (primary) hypertension
[2023-02-23] MEDS: POT PHOSPHATE MONOBASIC W/ SOD TAB PO SCH ×2 (17:42→20:52)
--- NOTE | 2023-02-23 18:29 | Palliative Care Consultation ---
Date of Consultation February 23, 2023 Assessment & Plan (1) Dyspnea and respiratory abnormalities: Pt recently started methadone x2 weeks for very severe, uncontrolled pain while on home hospice. She's been feeling less pain but admits maybe more tired/sleepy. She does not want dosing changed and emphasizes that she doesn't want to suffer, wants to be comfortable/free of pain, stay home and make the most of the time she has left. 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 Provided overview of Palliative Medicine, a subspecialty that provides specialized medical care for people living with a serious illness by offering a focus on quality of life. Palliative Medicine is often conflated with hospice: I advised patient/family that Palliative and hospice can be partners but we are not the same. It is important to understand the difference so that we may be informed, and not afraid. Palliative Medicine works to improve QOL through reduction of symptom burden/more control over their illness, for both the patient and family. Palliative medicine clinicians are board certified, specially-trained and another member of the patient's medical care team. We often provide an extra layer of support because our care is based on the needs of the patient, not the prognosis; as such, it's appropriate at any age/advancing stage of a serious illness and can be provided along with curative treatment. Palliative Medicine clinicians are also trained in advanced communication methodologies, to facilitate complex discussions about advanced illness planning, which are needed to help assure that the treatment choices match the patient's goals, aka delivering Goal Concordant care. Finally, we discussed that hospice is a visiting nurse service that focuses on care delivered at the very end of life for patients with terminal illness, with life expectancy less than 6 month. (7) Advanced care planning/counseling discussion: 60 min ACP discussion with pt at bedside face to face Patient and I discussed how the literature demonstrates to us that patients with IPF represent a group of individuals with a chronic respiratory disease who are without disease-reversing treatment options and, absent lung transplantation, inevitably face progressive decline and . We discussed that IPF is a progressive fibro-proliferative lung disease that affects approximately 128,000 individuals in the [place] annually. (Vazquez Dillard, Dionna H, David RODRIGUEZ, et al. ATS/ERS/JRS/ALAT Committee on Idiopathic Pulmonary Fibrosis. An official ATS/ERS/JRS/ALAT statement: idiopathic pulmonary fibrosis: evidence-based guidelines for diagnosis and management. Am J Respir Crit Care Med. 2011;183(6):655783.) The prognosis of IPF is poor, with most patients succumbing to their illness at a rate comparable to aggressive cancers.(Tara Barcenas, Kathya M, Juan N, Vazquez Dillard. Idiopathic pulmonary fibrosis: a disease with similarities and links to cancer biology. Eur Respir J. 2010;35:033151.) Median survival from diagnosis is 3.8 years; however, patients may succumb to a rapid within 6 months.(Vazquez Dillard, Chantel SY, Eveline WS, et al. Idiopathic pulmonary fibrosis in [place] Medicare beneficiaries aged 65 years and older: incidence, prevalence, and survival, [id number]. Lancet Respir Med. 2014;2(7):246288 and Diaz BERGER, Kellie N, Juan F, et al. Peripheral blood proteins predict mortality in idiopathic pulmonary fibrosis. Am J Respir Crit Care Med. 2012;185(1):3220.) Although transplantation is an effective surgical therapy,less than 20% of patients ever receive a lung transplant. The remaining 80% have few treatment options. As fibrosis advances and lung function deteriorates, patients experience a progressive increase in shortness of breath, cough and fatigue. These symptoms are distressing to patients and family caregivers and present a challenge in maintaining quality of life as the disease relentlessly progresses. Despite the fatal prognosis, patients and caregivers often fail to understand the poor prognosis. (Neema Villalobos E, Junior M, et al. Impact of a disease-management program on symptom burden and health-related quality of life in patients with idiopathic pulmonary fibrosis and their care partners. Heart Lung J Acute Crit Care. 2010;39(4):380792 and Dev Humphrey Swigris JJ. Interstitial lung disease original article: a qualitative study of informal caregivers perspectives on the effects of idiopathic pulmonary fibrosis. BMJ Open Resp Res. 2014:1.) PT states she developed pulm fibrosis about 5 years ago. Her mother had PF as well, lived about 4 years after dx. Pt lives in an apartment complex where her best friend and her sister also reside; she feels she would be able to have help from them and her sister would be able to stay with her if needed. Julian RECREATION ASSISTANT/[facility] was here for this discussion. She reiterated concerns for pt safety as she has been showing progressive decline/weakness and now falls. Having a caregiver at home would alleviate some of those concerns. An alternative option is SNF placement for fdc care, but Pt declines this opinion though she acknowledged that the time May come where she needs more care than family can give at home and require admission to SNF. (8) Encounter for hospice care discussion: We discussed the goals of hospice as a patient service and the goals of care; we discussed EOL trajectories and transitions marilee the emotional impact of realizing mortality as a concrete reality from prior abstract considerations. Pt was reassured that no matter where they are along this trajectory, they are not alone - their medical team will remain by their side through their journey. Discussed the pros/cons of accepting help when especially weakened and distressed by pain-which would also help provide relief/decrease caregiver burden/strain. I provided education about the hospice benefit: an interdisciplinary program offered by nurses, nurses aides, social workers, chaplains and a medical directo r for patients with a terminal condition and a life expectancy of less than 6 months. This is covered by Medicare at 100%/no out of pocket expense to patient and all meds/supplies needed by patient for the reason they are on hospice are paid for/covered by hospice. The goal is assure quality of life of the patient in their home setting (home, alf, inpatient hospice setting) by providing symptoms management, psychosocial and spiritual support. However, they cannot offer 24 hours care and if the family is unable to provide that care, they will have to consider personal care with out of pocket cost vs. alf placement. We discussed the goals of hospice as a patient service and the goals of care; we discussed EOL trajectories and transitions marilee the emotional impact of realizing mortality as a concrete reality from prior abstract considerations. Pt was reassured that no matter where they are along this trajectory, they are not alone - their medical team will remain by their side through their journey. Discussed the pros/cons of accepting help when especially weakened and distressed by pain-which would also help provide relief/decrease caregiver burden/strain. Plan * I asked pt if her sister/BFF and dtr could join us for a family meeting tomorrow. I also asked Julian to join us. Pt states she feels this is likely ok but she will call sister to confirm. i offered time between 0930-2pm. i asked her to let nursing know of the time she chooses and they can page me. Julian indicated she would need to call the office and check her schedule for tomorrow, she will let me know. I provided Julian with my business card and direct number + cell to call with update. * I asked Julian to obtain a timeline of pt's pain and sx mgt medication hx, issues with prior meds and doses tried. I also asked for more background with regards to their communication with both pt and her family. I asked to know more about what other concerns dtr has expressed and how communication regarding the uncontrolled symptoms and distress are communicated from pt to hospice. I very specifically shared with Julian my concerns that pt has had several ED visits and admissions for uncontrolled symptoms that should have been, per hospice regulations, GIP admits through hospice and furthermore if they felt she needs more than what help is in the home then per hospice regulations they should have been facilitating her admission to SNF. * This admission should be GIP admission. I asked Julian to evaluate pt for GIP given that she continues to have severe pain, poorly controlled symptoms and side effects to medications, worsening performance status. * No change to pain regimen at this time: pt is AAO x3, she is decisionally intact and has the capacity to make her own decisions and understands the implications of her choices. She is exceptionally clear she would prefer to tolerate side effects of sedation for the benefit of pain relief and more comfort. She is very clear that she is suffering between her dyspnea/air hunger and severe pain. She states she does not want to live in a state of constant suffering. The pain medicine helps alleviate the intensity so that she finds life more bearable. * Primary team updated Thank you for allowing us to participate in the ongoing care of this patient. Please don't hesitate to call or page with any additional concerns. Dr. Ami Osei DNP Director, Palliative Care History of Present Illness Reason for Consultation: medication mgt Attending Physician: Brian Cobian MD History of Present Illness Complex situation: terminal ILD patient who has been on emt intermediate home hospice with [facility] Suzy. Numerous ED and hospital admissions for uncontrolled symptoms , falls. Hospice was not involved in these admissions and they weren't GIP admits. she was recently started on methadone by hospice, 5mg tid. this is the second week. care mgt note indicates "hospice believed she was admitted GIP" however they did not get involved with her return to ED nor did they call anyone here to notify us she should be a GIP admit. chart review: 'dtr feels pt too sedated/wants this improved' pt seen bedside. her friend /occ helper also present. we were joined by Julian PEREZ from [facility]. pt states she doesn't feel over sedated. her pain is severe she understands /acknowledges sedation May be from pain meds but states 'you can't expect me to just sit at home suffering, this pain is terrible and agonizing . my dtr always thinks I'm too sedated but she doesn't feel the pain, I do.' Allergies Allergy/AdvReac Type Severity Reaction Status Date / Time baclofen Allergy Severe Unknown Verified 02/18/23 07:30 cefuroxime Allergy Severe Hives and Verified 02/18/23 07:30 Dizziness hydralazine Allergy Intermediate joint pain Verified 08/22/22 07:33 tetracycline Allergy Mild RASH Verified 02/18/23 07:30 budesonide AdvReac Severe caused her Verified 08/22/22 07:33 to cough constantly amlodipine AdvReac Mild Edema. Verified 08/22/22 07:33 Home Medications Medication Instructions Recorded Confirmed Type loratadine 10 mg tablet (Claritin) 10 mg PO QAM PRN Allergic Symptoms 07/29/19 02/21/23 History CPAP Machine #1 ea 08/06/19 02/21/23 Rx diltiazem HCl 180 mg 180 mg PO QAM 08/12/19 02/21/23 History capsule,extended release 24 hr (Cartia XT) sertraline 100 mg tablet (Zoloft) 100 mg PO QAM #30 tabs 10/15/19 02/21/23 Rx montelukast 10 mg tablet 10 mg PO HS 12/06/19 02/21/23 History furosemide 20 mg tablet (Lasix) 20 mg PO DAILY 12/07/19 02/21/23 History levothyroxine 100 mcg tablet 100 mcg PO QAM 01/23/20 02/21/23 History Portable Oxygen #1 ea 04/04/20 02/21/23 Rx clonidine HCl 0.1 mg tablet 0.2 mg PO BID@0800,199905/13/20 02/21/23 History buspirone 15 mg tablet 15 mg PO TID 01/16/21 02/21/23 History gabapentin 100 mg capsule 100 mg PO BID 01/16/21 02/21/23 History polyethylene glycol 3350 17 gram 17 g PO DAILY PRN constipation #30 01/19/21 Rx oral powder packet (Miralax) ea donepezil 5 mg tablet (Aricept) 5 mg PO QAM 01/20/21 02/21/23 History ipratropium 0.5 mg-albuterol 3 mg 3 ml inhalation Q8H PRN shortness 03/17/21 02/21/23 Rx (2.5 mg base)/3 mL nebulization of breath or wheezing #270 mL soln docusate sodium 100 mg capsule 100 mg PO BID PRN Constipation 04/16/21 02/21/23 History Lactobacillus acidoph-L.bulgaricus 1 tab PO BID #30 tabs 04/19/21 02/21/23 Rx 1 million cell chewable tablet (Lactinex) pantoprazole 40 mg tablet,delayed 40 mg PO BID 30 days #60 tabs 08/26/22 02/21/23 Rx release (Protonix) acetaminophen 500 mg tablet 500 mg PO BID 02/13/23 02/21/23 History aspirin 81 mg capsule 81 mg PO DAILY 02/13/23 02/21/23 History azithromycin 250 mg tablet 250 mg PO MOWEFR@0900 02/13/23 02/21/23 History bisacodyl 10 mg rectal suppository 5 mg DC DAILY PRN Constipation 02/13/23 02/21/23 History (Dulcolax (bisacodyl)) clonidine HCl 0.1 mg tablet 0.1 mg PO BID PRN elevated bp 02/13/23 02/21/23 History dextromethorphan-guaifenesin ER 60 1 tab PO Q12H 02/13/23 02/21/23 History mg-1,200 mg tab,extend release,12hr (Mucinex DM) famotidine 20 mg tablet 20 mg PO BID 02/13/23 02/21/23 History guaifenesin 100 mg/5 mL oral liquid 200 mg PO Q4H PRN Cough 02/13/23 02/21/23 History haloperidol lactate 2 mg/mL oral 0.5 mg PO Q4H PRN Agitation 02/13/23 02/21/23 History concentrate lactulose 10 gram/15 mL oral 10 g PO TID PRN Constipation 02/13/23 02/21/23 History solution lorazepam 0.5 mg tablet (Ativan) 0.5 mg PO QID PRN Anxiety 02/13/23 02/21/23 History methadone 5 mg tablet 5 mg PO TID 02/13/23 02/21/23 History morphine 100 mg/5 mL oral 20 mg PO Q2H PRN Pain 02/13/23 02/21/23 History concentrate ondansetron 4 mg oral soluble film 4 mg PO Q6H PRN Nausea 02/13/23 02/21/23 History prednisone 10 mg tablet 10 mg PO DAILY 02/13/23 02/21/23 History promethazine-DM 6.25 mg-15 mg/5 mL 5 ml PO QID PRN Cough 02/13/23 02/21/23 History oral syrup sennosides 8.6 mg-docusate sodium 2 tab-cap PO BID 02/13/23 02/21/23 History 50 mg tablet (Senna-S) tamsulosin 0.4 mg capsule 0.4 mg PO DAILY 02/13/23 02/21/23 History Patient History Medical History (Updated 02/23/23 @ 18:47 by Ami Osei DNP) Acute exacerbation of chronic low back pain Anxiety and depression Chronic back pain CKD (chronic kidney disease), stage III stage 3. follows with pcp. Degenerative disc disease GERD (gastroesophageal reflux disease) History of breast cancer bilateral HTN (hypertension) Hx of duodenal ulcer Hyperlipidemia Hypothyroidism ILD (interstitial lung disease) Lumbar radicular pain Mild cognitive impairment On home oxygen therapy 2lpm via n/c continuous BERNA (obstructive sleep apnea) intolerant to cpap Osteoarthritis Pulmonary fibrosis Restless legs syndrome hx SCC (squamous cell carcinoma) face Therapeutic opioid-induced constipation (OIC) Surgical History History of bilateral tubal ligation History of bronchoscopy History of cardiac cath no stents. (~1979) History of colonoscopy History of esophagogastroduodenoscopy (EGD) History of lung surgery thorascopy for lung biopsy S/P mastectomy, bilateral lymph node removal Left arm S/P thyroidectomy partial (r/t nodule) Family History Sister Myocardial infarction Sister Stroke Other No family history of adverse response to anesthesia Social History Smoking Status: Former smoker Tobacco Type: Cigarettes Cigarettes Per Day: 50 pack yr hx; Smoking End Date: 16 years ago; Second Hand Exposure: No; Do You Dip or Chew Tobacco: No; Tobacco Cessation Education Requested by Patient: No Hx Alcohol Use: No Hx Substance Use: No Preferred Language: Micronesian Communication Ability: Effective Base Loader Required: No Beliefs That Will Affect Care: None marital status: Current Living Situation: Alone Current Living Situation Comment: Senior apartment building How many Children do You have: 2 Other Information That Helps Us Care for You: No Feels Safe at Home: Yes Safety Concerns: Feels Safe At This Time Assistive Devices: Cane, CPAP, Oxygen - Continuous and Walker Review of Systems Review of Systems: All systems reviewed & are unremarkable except as noted in Subjective Physical Exam Physical Exam: frail, chronically ill appearing female with resp distress at rest +conversational dyspnea +use of accessory muscles , +pursed lip breathing +abd breathing crackles bilaterally up to both apices S1S2, loud S2 and distended , firm, mildly TTP, BS decreased generalized weakness skin pale, dry, cool +1 edema BLE AAO x3 Results & Data Vital Signs (Past 12 Hours) Vital Signs Temp Pulse Resp BP Pulse Ox O2 Del Method O2 Flow Rate 02/23/23 15:00 36.8 C 63 16 168/80 H 97 Nasal Cannula 4 02/23/23 08:24 36.6 C 76 16 172/78 H 97 Nasal Cannula 4 02/23/23 07:20 Nasal Cannula 4 02/23/23 06:56 36.9 C 59 L 16 134/66 95 Nasal Cannula 3 Laboratory Results Data reviewed Diagnostic Findings Data reviewed PG Care Time/CCT Total # of Minutes Spent Total Time Spent: 135 Total Time Spent with Patient: Total time spent is greater than 50% in coordination of care (as documented) at patient's floor/unit and/or counseling patient: I spent 135 minutes overall addressing this very complex case: 30 in medical data review/discussion with referring provider(s), chart review, [facility] hospice/multiple calls + in person meeting on unit later this afternoon and/or preparation for the visit 20 in direct interaction with the patient 60 Advance Care Planning/Goals of Care discussions as detailed above in note (must be >16min) 10 in subsequent review and synthesis of assessment and plan 15 in communicating with other providers regarding the patient's case: [] Advanced Care Planning 00439 Advanced Care Planning 30 Min 85628 Advanced Care Planning Additional 30 [place] [address] IN/OBS CONSULT LVL 5,80M Patient Type New History Comprehensive Exam Comprehensive Medical Decision Making High Complexity Diagnoses Dyspnea and respiratory abnormalities R06.00; R06.89 Weakness generalized R53.1 Severe pain R52 Pulmonary fibrosis, unspecified J84.10 COPD, very severe J44.9 Palliative care by specialist Z51.5 Advanced care planning/counseling discussion Z71.89 Encounter for hospice care discussion Z71.89 Additional Codes Advanced Care Planning - 55885 Advanced Care Planning 30 Min: 43997 Advanced Care Planning 30 Min ([id number]) Advanced Care Planning - 68849 Advanced Care Planning Additional 30 Min: 25437 Advanced Care Planning Additional 30 Min ([id number])
[2023-02-23] MEDS: DOCUSATE SODIUM 100 MG CAP PO PRN (20:51)
[2023-02-23] MEDS: LORazepam 0.5 MG TAB PO PRN (20:52)
[2023-02-23] MEDS: MONTELUKAST SODIUM 10 MG TABLET PO SCH (20:55)
[2023-02-23] MEDS ORDERED: methylPREDNISolone 4 MG TAB PO SCH (21:00)
[2023-02-24] MEDS: cloNIDine HCL 0.1 MG TAB PO SCH ×3 (02:37→20:11)
[2023-02-24] MEDS: methylPREDNISolone 4 MG TAB PO SCH ×4 (05:45→20:09)
[2023-02-24] MEDS: LEVOTHYROXINE SODIUM 100 MCG TABLET PO SCH (05:45)
[2023-02-24] MEDS: TAMSULOSIN HCL 0.4 MG CAP PO SCH (06:55)
[2023-02-24] MEDS: dilTIAZem HCL 180 MG CAPCR PO SCH (06:55)
[2023-02-24] MEDS: ACETAMINOPHEN 325 MG TAB PO PRN (07:22)
[2023-02-24] MEDS ORDERED: hydrALAZINE HCL 20 MG/ML VIAL IV PRN (08:00)
[2023-02-24] MEDS: ASPIRIN 81 MG ECTAB PO SCH (08:17)
[2023-02-24] MEDS: SERTRALINE HCL 100 MG TABLET PO SCH (08:17)
[2023-02-24] MEDS: predniSONE 10 MG TABLET PO SCH (08:18)
[2023-02-24] MEDS: DONEPEZIL HCL 5 MG TAB PO SCH (08:18)
[2023-02-24] MEDS: POLYETHYLENE (MIRALAX) 17 GM PACK PO SCH (08:18)
[2023-02-24] MEDS: FUROSEMIDE 20 MG TAB PO SCH (08:19)
[2023-02-24] MEDS: DEXTROMETHORPHAN POLYMR COMPLX 60 MG/10 ML UDP PO SCH ×2 (08:19→20:10)
[2023-02-24] MEDS: PANTOprazole 40 MG TAB PO SCH (08:19)
[2023-02-24] MEDS: guaiFENesin 600 MG TABCR PO SCH ×2 (08:19→20:13)
[2023-02-24] MEDS: busPIRone 15 MG TAB PO SCH ×3 (08:20→20:11)
[2023-02-24] MEDS: GABAPENTIN 100 MG CAP PO SCH ×2 (08:20→20:12)
[2023-02-24] MEDS: ADVANCED PROBIOTIC 1250 MG CAPSULE PO SCH ×2 (08:20→20:13)
[2023-02-24] MEDS: ENOXAPARIN INJ 40 MG/0.4 ML SYR SQ SCH (08:20)
[2023-02-24] MEDS: POT PHOSPHATE MONOBASIC W/ SOD TAB PO SCH ×2 (08:21→16:02)
[2023-02-24] MEDS: METHYLNALTREXONE BROMIDE 12 MG/0.6 ML VIAL SQ SCH ×2 (08:22→08:42)
[2023-02-24] MEDS: LIDOCAINE 5% 1 PATCH TD SCH (08:22)
[2023-02-24] MEDS: METHADONE HCL 5 MG TAB PO SCH ×3 (08:38→20:08)
[2023-02-24] MEDS: ACETAMINOPHEN 500 MG TAB PO SCH ×2 (08:38→20:23)
[2023-02-24] MEDS: DOCUSATE SODIUM/SENNA 50/8.6MG TAB PO SCH ×2 (08:38→20:14)
[2023-02-24] MEDS ORDERED: hydrALAZINE HCL 20 MG/ML VIAL IV ONE (09:18)
[2023-02-24] MEDS ORDERED: lisinopril 20 MG TAB PO STA (09:18)
[2023-02-24 09:55] LABS: BUN Creatinine Ratio 18.7 (10-20); Creatinine Clr Calc Pharmacy 71.5 ml/min; Est GFR (Non-African American) 78.5 ml/min; Magnesium 2.2 mg/dl (1.7-2.4); Phosphorus 2.7 mg/dl (2.5-4.9); Potassium 4.4 mmol/L (3.5-5.1)
[2023-02-24] MEDS: FAMOTIDINE 20 MG TAB PO SCH ×2 (10:58→20:09)
[2023-02-24] MEDS ORDERED: OXYMETAZOLINE 0.05% 30 ML BTL ONE (13:00)
[2023-02-24] MEDS ORDERED: LIDOCAINE 4% INH SOLN 4 ML BTL ONE (13:06)
--- NOTE | 2023-02-24 13:33 | Emergency Department Note ---
ED Visit Note I was called by Dr. Cobian because of severe epistaxis. The patient was an admitted patient at this hospital. Looking at her record, she appears to be receiving enoxaparin injections as well as oral aspirin. The patient was brought to the ED for the nasal bleeding assessment. There was no ENT warehouse distribution manager. The patient arrived in room D5, there was significant epistaxis. She was coughing up blood as well as losing blood from both sides of her nose. On quick exam, she appears to have a hole in the anterior nasal septum. Most of the clot and bleeding appear to be coming from the right side of her nose. There was some blood noted to the back of the throat. The patient was able to blow her nose free of clot. Lidocaine and Afrin spray w as applied to both sides of her nose. Packing placement: This procedure was performed by me. Patient had a 5.5 cm nasal pack attempted on the right however, this was too large. A 4.5 cm pack was then placed on the right without difficulty. The balloon was inflated. This seemed to stop the bleeding. I did place a smaller 4x4 into the left anterior aspect of the nose to help with overflow bleeding. The patient was having persistent bleeding from the left nasal septum, I presume from the hole in the anterior septum. I did have to place a second 4.5 cm pack. In other words, both sides of the nose were packed. Packing placement: This procedure was performed by me. A 4.5 cm pack was then placed on the left without difficulty. The balloon was inflated. This seemed to stop the bleeding. I did contact Dr. Cobian about the patient's packing and current situation. Her anticoagulants and antiplatelets will need to be stopped. She will need antibiotic therapy because of the bilateral nasal packing. She will need close monitoring because both sides of the nose have been packed. The nasal packs should be removed in about 3 days. .
[2023-02-24] MEDS ORDERED: haloperidoL 1 MG TAB PO PRN (14:52)
[2023-02-24] MEDS ORDERED: GLYCOPYRROLATE 0.2 MG/ML VIAL IV PRN (14:52)
[2023-02-24] MEDS ORDERED: LORazepam 2 MG/1 ML VIAL IV PRN (14:52)
--- NOTE | 2023-02-24 14:59 | Palliative Care Progress Note ---
Date of Service February 24, 2023 Assessment & Plan (1) Dyspnea and respiratory abnormalities: (2) Weakness generalized: (3) Severe pain: (4) Pulmonary fibrosis, unspecified: (5) Palliative care by specialist: (6) Advanced care planning/counseling discussion: Plan: ACP face to face x 60min with pt, her daughter, her sister and grit removal operator reviewed her trajectory of decline, worsening PS her sister states she cannot care for pt: "I don't know first aid/CPR, I wouldn't know what to do if she bleeds and if I see blood I will pass out. All I can do is call the ambulance." advised this was not intent and purpose of comfort care I do not feel she is going to be safe at home mar[facility] given that family is not comfortable caring for her with any intensity of need She would be safest in jail and continuing hospice, all in agreement She would like to be comfort care and remain on GIP this admission all questions answered to their apparent satisfaction TS 105 min Thank you for allowing us to participate in the ongoing care of this patient. Please don't hesitate to call or page with any additional concerns. Dr. Ami Osei DNP Director, Palliative Care (7) Encounter for hospice care discussion: Plan Move to [facility] All orders written She is on GIP, confirmed with [facility] Hospice nurse CM aware for hospice at SNF. Pt and family DO NOT WANT SKILLED CARE AND WILL NOT GIVE UP HOSPICE. Pt has [facility] and [facility]. [facility] will pay for SNF, [facility] will pay for hospice. TS 105 min Thank you for allowing us to participate in the ongoing care of this patient. Please don't hesitate to call or page with any additional concerns. Dr. Ami Osei DNP Director, Palliative Care Admission and Anticipated Discharge Date Admission Date: February 21, 2023 Subjective Family meeting with sister and daughter along with [facility] Hospice nurse pt had an acute nosebleed warranting a trip to ED for assessment and tx. now with bilat plugs and trickling bleed some oozing from eyes breathing ok slightly more anxious and tearful Review of Systems Review of Systems: All systems reviewed & are unremarkable except as noted in Subjective Physical Exam Physical Exam: Anxious, at times tearful Bitemp wasting, perrla +nosebleed with trickling/oozing from nose and eyes frequent throat clearing, some dried blood on tongue/wiped off easily mild inc resp effort. dyspnea with conversation tachy abd distended but non tender, BS+ 1+ edema BLE Results & Data Vital Signs (Past 12 Hours) Vital Signs Temp Pulse Resp BP BP Pulse Ox O2 Del Method 02/24/23 09:33 144/62 H 02/24/23 08:31 196/83 H 02/24/23 08:11 186/84 H 02/24/23 07:55 190/95 H 02/24/23 07:10 36.8 C 69 16 190/92 H 96 Room Air 02/24/23 07:20 Nasal Cannula 02/24/23 06:57 74 97 Nasal Cannula 02/24/23 06:38 187/79 H 02/24/23 03:34 189/83 H 02/24/23 03:32 195/90 H O2 Flow Rate 02/24/23 09:33 02/24/23 08:31 02/24/23 08:11 02/24/23 07:55 02/24/23 07:10 02/24/23 07:20 4 02/24/23 06:57 4 02/24/23 06:38 02/24/23 03:34 02/24/23 03:32 Laboratory Results data reviewed Diagnostic Findings data reviewed PG Care Time/CCT Total # of Minutes Spent Total Time Spent: 105 Total Time Spent with Patient: Total time spent is greater than 50% in coordination of care (as documented) at patient's floor/unit and/or counseling patient: I spent 105 minutes overall addressing this case: 10 in medical data review/discussion with referring provider(s) and/or preparation for the visit 15 in direct interaction with the patient 60 Advance Care Planning/Goals of Care discussions as detailed above in note (must be >16min) 5 in subsequent review and synthesis of assessment and plan 15 in communicating with other providers regarding the patient's case: CM, nursing, primary team Advanced Care Planning 73730 Advanced Care Planning 30 Min 52339 Advanced Care Planning Additional 30 Min [place] [address] SUB INP/OBS CARE 3/50MIN Patient Type Established Medical Decision Making High Complexity Diagnoses Dyspnea and respiratory abnormalities R06.00; R06.89 Weakness generalized R53.1 Severe pain R52 Pulmonary fibrosis, unspecified J84.10 Palliative care by specialist Z51.5 Advanced care planning/counseling discussion Z71.89 Encounter for hospice care discussion Z71.89 Additional Codes Advanced Care Planning - 47172 Advanced Care Planning 30 Min: 35244 Advanced Care Planning 30 Min ([id number]) Advanced Care Planning - 60857 Advanced Care Planning Additional 30 Min: 41940 Advanced Care Planning Additional 30 Min ([id number])
[2023-02-24] MEDS ORDERED: METHYLNALTREXONE BROMIDE 12 MG/0.6 ML VIAL SQ PRN (15:00)
--- NOTE | 2023-02-24 17:06 | Hospitalist Progress Note ---
Date of Service February 24, 2023 Assessment & Plan (1) Fall: (2) Physical deconditioning: (3) Thoracic compression fracture: Plan: This is a 72 y/o female with a history of chronic hypoxic respiratory failure on 4L O2 via NC due to COPD, pulmonary fibrosis/ILD, HTN, mild cognitive impairment, CKD3, chronic back pain, anxiety and depression, hypothyroidism, BERNA intolerant of CPAP, and GERD, recently admitted for pneumonia and discharged on 02/17, who presented to the ED via EMS after a fall at home. Pt is on home hospice for end-stage COPD and probable underlying malignancy. Per pt's manager administrative, Adeline ([phone]), she notes that patient has been increasingly weak and having difficulty managing at home. Pt does have intermittent help from the office of aging but apparently not consistent. After her fall with recent hospital discharge, hospice team thinks that pt likely needs a higher level of care and would benefit from assisted living or SNF placement. Pt has been resistant to this previously but seems to be agreeable at this point. Lumbar spine CT-acute compression fracture of T11 Home pain medication regimen -methadone 5 mg TID, Roxanol 20 mg q2h breakthrough pain Pain management consulted --added Medrol Dosepak, patient to maintain daily prednisone 10 mg. Gabapentin increased to 200 mg BID. Extensive discussion between palliative care, family and hospice today with election to move forward as in-patient hospice admission with transition to comfort care and discharge on hospice at SNF. Epistaxis Developed acute and significant nosebleed requiring bilat. packing by Dr. Crawford in ED No longer bleeding, more comfortable (4) Emphysema with chronic bronchitis: (5) Chronic respiratory failure: Plan: Chronically on 4 L No signs of acute exacerbation (6) Hypothyroidism: Plan: Continue levothyroxine (7) HTN (hypertension): Plan: BP controlled, continue clonidine, diltiazem, furosemide (8) Anxiety and depression: Plan: Stable, continue home meds DVT PROPHYLAXIS discontinued chemical VTE 2/2 epistaxis today Dispo-pending; wishes to be discharged on hospice to SNF Patient seen in collaboration with Dr. Cobian. Admission and Anticipated Discharge Date Admission Date: February 21, 2023 Supervising Physician Co-Signing Physician Notes delayed entry date of service noted above Attending Addendum: care coordinated with MUKESH Orr please refer to her notes for full details, I agree with her notes patient seen and examined, records reviewed by myself as well diagnoses and plan of care as per MUKESH Nancy Cobian MD Subjective Seen and examined in 376-1. Patient was resting, no new complaints overnight. Comfortable on oxygen, no f/c, CP, SOB, N/V, abdominal pain, dysuria, diarrhea or constipation. Later patient developed an acute nose bleed that required an ED physician placing bilateral packing. When evaluated later in the afternoon, bleeding had stopped and patient was feeling more comfortable again. Review of Systems Review of Systems: At least ten systems reviewed and negative except as noted in the HPI. Physical Exam Physical Exam: Gen: WD/WN, NAD, lying in bed resting but awakens to answer questiond, A&Ox3 HEENT: Normocephalic, atraumatic, conjunctivae moist, sclerae anicteric, mucous membranes moist Lung: Diminished lung sounds bilaterally, no wheezes/rales/rhonchi Heart: Regular rate, regular rhythm, no murmurs, rubs, or gallops Abdomen: Soft, NT, ND +BS x 4 Extremities: no edema Skin: Warm, no rash Results & Data Results & Data Vital Signs (Past 12 Hours) Vital Signs Temp Pulse Resp BP BP Pulse Ox O2 Del Method 02/24/23 09:33 144/62 H 02/24/23 08:31 196/83 H 02/24/23 08:11 186/84 H 02/24/23 07:55 190/95 H 02/24/23 07:10 36.8 C 69 16 190/92 H 96 Room Air 02/24/23 07:20 Nasal Cannula 02/24/23 06:57 74 97 Nasal Cannula 02/24/23 06:38 187/79 H O2 Flow Rate 02/24/23 09:33 02/24/23 08:31 02/24/23 08:11 02/24/23 07:55 02/24/23 07:10 02/24/23 07:20 4 02/24/23 06:57 4 02/24/23 06:38 Laboratory Results BMP 02/24/23 09:10 Sodium 137 Potassium 4.4 Chloride 97 L Carbon Dioxide 37 H BUN 14 Creatinine 0.75 Glucose 164 H Calcium 10.0 Diagnostic Findings Cervical Spine CT 02/21/23 07:34 CT cervical spine wo con CLINICAL HISTORY: 72 years-old Female with fall. Acute neck pain status post fall COMPARISON: Head CT of same day, CT neck 08/23/2022 TECHNIQUE: Multiple axial CT images of the cervical spine were obtained without contrast. A dose lowering technique was utilized adhering to the principles of ALARA. FINDINGS: Multilevel changes. No acute fracture or subluxation. Grade 1 anterolisthesis C4 on C5 is likely secondary to chronic facet arthrosis. Calcif ied plaque of the carotid bulbs. The cervical soft tissues appear unremarkable. No pneumothorax. Emphysema with chronic fibrotic changes of the lung apices. IMPRESSION: No acute cervical spine fracture or subluxation. ACT 112: Negative or not required by law. The above report was generated using voice recognition software. It may contain grammatical, syntax or spelling errors. Electronically signed by: Derrek Olivares M.D. 02/21/2023 9:04 AM Chest X-Ray 02/21/23 07:34 XR chest 1V portable HISTORY: 72 years-old Female fall acute chest trauma status post fall COMPARISON: CTA chest 02/13/2023 TECHNIQUE: AP view of the chest FINDINGS: Cardiac silhouette is enlarged. Chronic interstitial coarsening. There is no pneumothorax, pleural effusion or overt pulmonary edema. Emphysema with chronic fibrosis. Irregular subpleural lesion within the left upper lobe measuring 4.5 cm. Degenerative changes of the shoulders and spine. IMPRESSION: 1. Emphysema with chronic fibrotic changes. 2. Suspicious irregular subpleural consolidative opacity of the left upper lobe measuring 4.5 cm again noted. Continued follow-up recommended. ACT 112: Negative or not required by law. The above report was generated using voice recognition software. It may contain grammatical, syntax or spelling errors. Electronically signed by: Derrek Olivares M.D. 02/21/2023 8:[address] 02/21/23 07:34 CT head/brain wo con CLINICAL HISTORY: 72 years-old Female with fall. Acute head trauma status post fall TECHNIQUE: Multiple axial CT images of the head were obtained without contrast. A dose lowering technique was utilized adhering to the principles of ALARA. COMPARISON: 08/23/2022 FINDINGS: No acute intracranial hemorrhage, midline shift, intracranial mass, hydrocephalus, territorial ischemia or abnormal extra-axial collection. Mildly motion degraded exam. The calvarium is intact. Prior bilateral lens repair. Small anterior frontal scalp contusions. The paranasal sinuses, mastoid air cells, and middle ear cavities are clear. IMPRESSION: 1. No acute intracranial abnormality or calvarial fracture. 2. Small anterior frontal scalp contusions. ACT 112: Negative or not required by law. The above report was generated using voice recognition software. It may contain grammatical, syntax or spelling errors. Electronically signed by: Derrek Olivares M.D. 02/21/2023 8:59 AM Abdomen/Pelvis CT 02/21/23 07:36 CT abd pelvis IV con only, CT lumbar spine w con CLINICAL HISTORY: fall, abd pain TECHNIQUE: Helical axial images of the abdomen and pelvis were obtained and displayed. Automated dose lowering techniques and/or adjustment according to patient size were utilized for this exam. Dedicated images of the lumbar spine were obtained. This exam was performed with intravenous contrast. CT DOSE: 2656.29 mGy.cm COMPARISON: Comparison is made to CT abdomen pelvis 02/13/2023 FINDINGS: Lower chest: Interstitial thickening is seen. Liver: Numerous hepatic hypodensities are seen. Gallbladder and biliary tree: No calcified gallstones. Normal caliber wall. No intra- or extrahepatic biliary ductal dilation. Pancreas: Fatty replacement of the pancreas is seen. Spleen: Unremarkable. Adrenals: Unremarkable. Kidneys and ureters: Nonobstructive nephrolithiasis is seen. Bladder: Unremarkable. Reproductive organs: Unremarkable. Bowel: A hiatal hernia is seen. Diverticulosis is seen without evidence of diver ticulitis. Lymph nodes Retroperitoneal: Unremarkable. Pelvic: Unremarkable. Mesenteric: Unremarkable. Peritoneum: Normal. Vessels: Atherosclerotic calcifications are seen. Abdominal wall: Bilateral fat-containing inguinal hernias are seen. Diastases of the abdominal wall is seen. There is a fat-containing umbilical hernia. A small amount of fat stranding is seen in the anterior abdominal wall. Bones: Degenerative changes in the visualized spine. There is a compression deformity of T11 which has increased from the prior exam without significant retropulsion. IMPRESSION: 1. Acute compression fracture of T11. There is body wall contusion in the anterior soft tissues. Otherwise no acute abnormalities are seen. No evidence of intraperitoneal hemorrhage. 2. Redemonstration multiple hypodensities in the liver concerning for malignancy, follow-up MRI liver mass protocol is recommended. ACT 112: Negative or not required by law. Electronically signed by: Anthony Lewis M.D. 02/21/2023 9:[address] 02/21/23 07:50 CT abd pelvis IV con only, CT lumbar spine w con CLINICAL HISTORY: fall, abd pain TECHNIQUE: Helical axial images of the abdomen and pelvis were obtained and displayed. Automated dose lowering techniques and/or adjustment according to patient size were utilized for this exam. Dedicated images of the lumbar spine were obtained. This exam was performed with intravenous contrast. CT DOSE: 2656.29 mGy.cm COMPARISON: Comparison is made to CT abdomen pelvis 02/13/2023 FINDINGS: Lower chest: Interstitial thickening is seen. Liver: Numerous hepatic hypodensities are seen. Gallbladder and biliary tree: No calcified gallstones. Normal caliber wall. No intra- or extrahepatic biliary ductal dilation. Pancreas: Fatty replacement of the pancreas is seen. Spleen: Unremarkable. Adrenals: Unremarkable. Kidneys and ureters: Nonobstructive nephrolithiasis is seen. Bladder: Unremarkable. Reproductive organs: Unremarkable. Bowel: A hiatal hernia is seen. Diverticulosis is seen without evidence of diverticulitis. Lymph nodes Retroperitoneal: Unremarkable. Pelvic: Unremarkable. Mesenteric: Unremarkable. Peritoneum: Normal. Vessels: Atherosclerotic calcifications are seen. Abdominal wall: Bilateral fat-containing inguinal hernias are seen. Diastases of the abdominal wall is seen. There is a fat-containing umbilical hernia. A small amount of fat stranding is seen in the anterior abdominal wall. Bones: Degenerative changes in the visualized spine. There is a compression deformity of T11 which has increased from the prior exam without significant retropulsion. IMPRESSION: 1. Acute compression fracture of T11. There is body wall contusion in the anterior soft tissues. Otherwise no acute abnormalities are seen. No evidence of intraperitoneal hemorrhage. 2. Redemonstration multiple hypodensities in the liver concerning for malignancy, follow-up MRI liver mass protocol is recommended. ACT 112: Negative or not required by law. Electronically signed by: Anthony Lewis M.D. 02/21/2023 9:28 AM (7) HTN (hypertension) Hypertension type: unspecified Qualified Code(s): I10 - Essential (primary) hypertension
[2023-02-24] MEDS ORDERED: TXA 10% Non-IV Routes 100 MG/ML VIAL NEB ONE (18:32)
[2023-02-24] MEDS: MONTELUKAST SODIUM 10 MG TABLET PO SCH (20:11)
[2023-02-24] MEDS: AMOXICILLIN/CLAVULANATE 875 MG TAB PO SCH (20:23)
[2023-02-24] MEDS: MoRPHine SULFATE 10 MG/0.5 ML UDP PO PRN (20:24)
[2023-02-25] MEDS: methylPREDNISolone 4 MG TAB PO SCH ×2 (06:04→14:18)
[2023-02-25] MEDS: LEVOTHYROXINE SODIUM 100 MCG TABLET PO SCH (06:04)
[2023-02-25] MEDS: AMOXICILLIN/CLAVULANATE 875 MG TAB PO SCH (08:54)
[2023-02-25] MEDS: AZITHROMYCIN 250 MG TAB PO SCH (08:57)
[2023-02-25] MEDS: busPIRone 15 MG TAB PO SCH ×2 (08:58→14:18)
[2023-02-25] MEDS: cloNIDine HCL 0.1 MG TAB PO SCH ×2 (08:59→14:19)
[2023-02-25] MEDS: DEXTROMETHORPHAN POLYMR COMPLX 60 MG/10 ML UDP PO SCH (08:59)
[2023-02-25] MEDS ORDERED: lisinopril 20 MG TAB PO SCH (09:00)
[2023-02-25] MEDS: dilTIAZem HCL 180 MG CAPCR PO SCH (09:00)
[2023-02-25] MEDS: FAMOTIDINE 20 MG TAB PO SCH (09:01)
[2023-02-25] MEDS: DOCUSATE SODIUM/SENNA 50/8.6MG TAB PO SCH (09:01)
[2023-02-25] MEDS: TAMSULOSIN HCL 0.4 MG CAP PO SCH (09:02)
[2023-02-25] MEDS: FUROSEMIDE 20 MG TAB PO SCH (09:02)
[2023-02-25] MEDS: GABAPENTIN 100 MG CAP PO SCH (09:02)
[2023-02-25] MEDS: guaiFENesin 600 MG TABCR PO SCH (09:03)
[2023-02-25] MEDS: LIDOCAINE 5% 1 PATCH TD SCH (09:04)
[2023-02-25] MEDS: ADVANCED PROBIOTIC 1250 MG CAPSULE PO SCH (09:04)
[2023-02-25] MEDS: POLYETHYLENE (MIRALAX) 17 GM PACK PO SCH (09:05)
[2023-02-25] MEDS: SERTRALINE HCL 100 MG TABLET PO SCH (09:06)
[2023-02-25] MEDS: METHADONE HCL 5 MG TAB PO SCH ×2 (09:11→14:19)
[2023-02-25] MEDS: ACETAMINOPHEN 500 MG TAB PO SCH (09:12)
[2023-02-25] MEDS: MoRPHine SULFATE 10 MG/0.5 ML UDP PO PRN (09:25)
--- NOTE | 2023-02-25 13:53 | Discharge Summary ---
Discharge Summary Date of Service February 25, 2023 Notes For Next Care Provider Hospice patient admitted after fall, dc home with private aide and home hospice per palliative Medication Changes From Visit Discharged on Afrin PRN nosebleed and 5d course of Augmentin Complete medrol dosepak on 02/27, increased gabapentin to 200mg BID Admission HPI Per Admitting Provider This is a 72 y/o female with a history of chronic hypoxic respiratory failure on 4L O2 via NC due to COPD, pulmonary fibrosis/ILD, HTN, mild cognitive impairment, CKD3, chronic back pain, anxiety and depression, hypothyroidism, BERNA intolerant of CPAP, and GERD who presented to the ED today via EMS after a fall at home. History from the patient is somewhat limited due to drowsiness and underlying cognitive impairment but pt is arousable and attempts to answer questions. Pt was recently admitted to this facility 02/13-02/17/23 due to acute on chronic respiratory failure from TOMMY pneumonia. Treated initially with IV methylprednisolone and IV antibiotics with improvement so transitioned to oral and discharged home. Pt has been on home hospice, even before last admission, and requested to go back home at discharge. Care was coordinated with her outpatient hospice team through [facility]. Since being home, pt reports she has been doing "okay" until this morning when she was standing at the sink, lost her balance, and fell. She reports landing face forward. She denies syncopal event or LOC. She notes ongoing fatigue and weakness. Appetite is fair. She reports limited ability to make her own meals at home so she has been eating what she can find, not always a full meal. In the ED, work-up revealed an acute T11 compression fracture. Pt has chronic back pain for which she is on methadone and morphine but pain has been somewhat difficult to manage recently. Meds being titrated by hospice. Current pain is not different from pain prior to the fall. Her breathing is at baseline - using baseline 4L of oxygen. Cough continues to gradually improve. Admission Exam Per Admitting Provider Constitutional: no acute distress drowsy but arousable Eyes: + anicteric sclerae Neck: trachea midline Respiratory: no respiratory distress and no labored breathing Auscultation: + diminished lung sounds Cardiovascular: Rate/Rhythm: regular rate Vessels: radial pulses present Extremities: + edema (2+ pitting bilateral) Gastrointestinal (Abdomen): Inspection/Auscultation: + abdomen distended and normal bowel sounds Musculoskeletal: Head/Neck/Chest: + scalp tenderness (frontal over contusion); no chest wall crepitus Skin: bilateral knee abrasions Neurologic: moves all extremities Psychiatric: Orientation: oriented to person, oriented to place and cooperative Affect: + flat affect Principal Dx & Hospital Course #1 = Principal Diagnosis (1) Fall: (2) Physical deconditioning: (3) Thoracic compression fracture: (4) Emphysema with chronic bronchitis: (5) Chronic respiratory failure: (6) Hypothyroidism: (7) HTN (hypertension): (8) Anxiety and depression: Plan This is a 72 y/o female with a history of chronic hypoxic respiratory failure on 4L O2 via NC due to COPD, pulmonary fibrosis/ILD, HTN, mild cognitive impairment, CKD3, chronic back pain, anxiety and depression, hypothyroidism, BERNA intolerant of CPAP, and GERD, recently admitted for pneumonia and discharged on 02/17, who presented to the ED via EMS after a fall at home. Pt is on home hospice for end-stage COPD and probable underlying malignancy. Per pt's assurance senior manager, Adeline ([phone]), she notes that patient has been increasingly weak and having difficulty managing at home. Pt does have intermittent help from the office of aging but apparently not consistent. After her fall with recent hospital discharge, hospice team thinks that pt likely needs a higher level of care and would benefit from assisted living or SNF placement. Pt has been resistant to this previously but seems to be agreeable at this point. During admission, patient was found to have an acute compression fracture of T11on CT spine. Continued on home pain regimen of methadone 5 mg TID, Roxanol 20 mg q2h breakthrough pain. Pain management consulted added Medrol Dosepak, patient to maintain daily prednisone 10 mg. Gabapentin increased to 200 mg BID. Also had recurrent nosebleed during admission, requiring bilateral packing in emergency packing. Aspirin discontinued. No active bleeding today. PRN Afrin, complete short augmentin course 2/2 nasal packing. Extensive discussion between palliative care, family and hospice today with election to move forward as in- patient hospice admission with transition home on hospice with private aide to provide additional care required for patient. Patient desires to reduce daily medications and will have further discussion with hospice team at home regarding which medications to continue with goal of improving quality of life and discontinuing the rest. Discharge Exam Gen: WD/WN, NAD, lying in bed, A&Ox3, pleasant HEENT: Normocephalic, some periocular bruising, conjunctivae moist, sclerae anicteric, mucous membranes moist Lung: Diminished lung sounds bilaterally, no wheezes/rales/rhonchi Heart: Regular rate, regular rhythm, no murmurs, rubs, or gallops Abdomen: Soft, NT, ND +BS x 4 Extremities: 1+ BLE edema Skin: Warm, no rash Updated Medication List Medication Instructions Recorded Confirmed Type loratadine 10 mg tablet (Claritin) 10 mg PO QAM PRN Allergic Symptoms 07/29/19 02/21/23 History CPAP Machine #1 ea 08/06/19 02/21/23 Rx diltiazem HCl 180 mg 180 mg PO QAM 08/12/19 02/21/23 History capsule,extended release 24 hr (Cartia XT) sertraline 100 mg tablet (Zoloft) 100 mg PO QAM #30 tabs 10/15/19 02/21/23 Rx montelukast 10 mg tablet 10 mg PO HS 12/06/19 02/21/23 History furosemide 20 mg tablet (Lasix) 20 mg PO DAILY 12/07/19 02/21/23 History levothyroxine 100 mcg tablet 100 mcg PO QAM 01/23/20 02/21/23 History Portable Oxygen #1 ea 04/04/20 02/21/23 Rx clonidine HCl 0.1 mg tablet 0.2 mg PO BID@0800,2000 05/13/20 02/21/23 History buspirone 15 mg tablet 15 mg PO TID 01/16/21 02/21/23 History gabapentin 100 mg capsule 100 mg PO BID 01/16/21 02/21/23 History polyethylene glycol 3350 17 gram 17 g PO DAILY PRN constipation #30 01/19/21 02/21/23 Rx oral powder packet (Miralax) ea donepezil 5 mg tablet (Aricept) 5 mg PO QAM 01/20/21 02/21/23 History ipratropium 0.5 mg-albuterol 3 mg 3 ml inhalation Q8H PRN shortness 03/17/21 02/21/23 Rx (2.5 mg base)/3 mL nebulization of breath or wheezing #270 mL soln docusate sodium 100 mg capsule 100 mg PO BID PRN Constipation 04/16/21 02/21/23 History Lactobacillus acidoph-L.bulgaricus 1 tab PO BID #30 tabs 04/19/21 02/21/23 Rx 1 million cell chewable tablet (Lactinex) pantoprazole 40 mg tablet,delayed 40 mg PO BID 30 days #60 tabs 08/26/22 Rx release (Protonix) acetaminophen 500 mg tablet 500 mg PO BID 02/13/23 02/21/23 History azithromycin 250 mg tablet 250 mg PO MOWEFR@0900 02/13/23 02/21/23 History bisacodyl 10 mg rectal suppository 5 mg OH DAILY PRN Constipation 02/13/23 02/21/23 History (Dulcolax (bisacodyl)) clonidine HCl 0.1 mg tablet 0.1 mg PO BID PRN elevated bp 02/13/23 02/21/23 History dextromethorphan-guaifenesin ER 60 1 tab PO Q12H 02/13/23 02/21/23 History mg-1,200 mg tab,extend release,12hr (Mucinex DM) famotidine 20 mg tablet 20 mg PO BID 02/13/23 02/21/23 History guaifenesin 100 mg/5 mL oral liquid 200 mg PO Q4H PRN Cough 02/13/23 02/21/23 History haloperidol lactate 2 mg/mL oral 0.5 mg PO Q4H PRN Agitation 02/13/23 02/21/23 History concentrate lactulose 10 gram/15 mL oral 10 g PO TID PRN Constipation 02/13/23 02/21/23 History solution lorazepam 0.5 mg tablet (Ativan) 0.5 mg PO QID PRN Anxiety 02/13/23 02/21/23 History methadone 5 mg tablet 5 mg PO TID 02/13/23 02/21/23 History morphine 100 mg/5 mL oral 20 mg PO Q2H PRN Pain 02/13/23 02/21/23 History concentrate ondansetron 4 mg oral soluble film 4 mg PO Q6H PRN Nausea 02/13/23 02/21/23 History prednisone 10 mg tablet 10 mg PO DAILY 02/13/23 02/21/23 History promethazine-DM 6.25 mg-15 mg/5 mL 5 ml PO QID PRN Cough 02/13/23 02/21/23 History oral syrup sennosides 8.6 mg-docusate sodium 2 tab-cap PO BID 02/13/23 02/21/23 History 50 mg tablet (Senna-S) tamsulosin 0.4 mg capsule 0.4 mg PO DAILY 02/13/23 02/21/23 History amoxicillin 875 mg-potassium 1 tab PO BIDM #10 tabs 02/25/23 Rx clavulanate 125 mg tablet methylprednisolone 4 mg tablet 4 mg PO UD #4 tabs 02/25/23 Rx (Medrol) oxymetazoline 0.05 % nasal mist 2 spray intranasal BID 3 days #15 02/25/23 Rx (Afrin (oxymetazoline)) mL Hospital Stay Data Consultations 02/21/23 10:20 ED Decision to Admit Stat 02/21/23 16:40 Consult Pain Management Routine 02/23/23 12:48 Consult Palliative Care Routine Diagnostic Imagining Performed 02/21/23 07:34 CT head/brain wo con Stat CT neck [CT cervical spine wo con] Stat 02/21/23 07:36 CT Abd and Pelvis [CT abd pelvis IV con only] Stat 02/21/23 07:50 CT lumbar spine w con Stat Pending Results Patient Have Any Pending Studies at Discharge: No Discharge Instructions Given to Patient (Per Discharging Provider) MEDICATION CHANGES: Added Afrin PRN for nose bleed. Augmentin twice a day for 5 days as prophylaxis with nasal packing. Complete Medrol dosepak : 4mg this evening, 4mg tomorrow breakfast and evening (02/26), 4mg Tuesday morning (02/27) Gabapentin dose increased to 200mg BID SUMMARY OF TEST RESULTS: You were admitted to hospital secondary to fall. Patient is on home hospice for end-stage COPD and probable underlying malignancy. After discussions between family, medical team and palliative care, will discharge home on hospice with test kitchen home economist arranged by family. Continue pain medications and other chronic medications that will allow for better quality of life. Patient interested in discontinuing some terminal operations supervisor medications - will defer further changes to home hospice team. PENDING TEST RESULTS: None RECOMMENDATIONS FOR FOLLOW-UP: Complete antibiotic in its entirety. Continued care per home hospice team. Please take good care of yourself. Call if you have any questions or problems. You can reach a [facility] hospitalist on duty at [facility] 24 hours a day by calling [phone]. Total Time Total Time Spent Total Time Spent (In Minutes): 60 Supervising Physician Co-Signing Physician Notes delayed entry date of service noted above Attending Addendum: care coordinated with MUKESH Orr please refer to her notes for full details, I agree with her notes patient seen and examined, records reviewed by myself as well diagnoses and plan of care as per MUKESH Cobian MD
[2023-02-26] MEDS ORDERED: methylPREDNISolone 4 MG TAB PO SCH (07:00)
[2023-02-27] MEDS ORDERED: methylPREDNISolone 4 MG TAB PO SCH (07:00)
== END 2023-02-25 15:30 | disposition hospice, home (50) | DRG 552 ==
LOC: ED 07:14 → EDINP 10:47 → SUATTDRO 10:47 → 3N 16:41